=== PATIENT | female | born 1935 | race Caucasian/White ===

== ENCOUNTER 2016-11-06 12:20 | Emergency (ER) | payer OTHER ==
[~2016-11-06] VITALS: Ht 157.5 cm; Wt 98.0 kg
[~2016-11-06 12:20] MED LIST: ATEN-174 PO; BIOT1CAP8 PO; CALCTAB7 PO; CARB25TA12 PO; CHOL1000 PO; FURO40TA3 PO; LISI5TAB PO; MULT-188 PO; [UNRECOGNIZED DRUG - CODE] PO
[2016-11-06 12:25] VITALS: TEMP 36.7; O2SAT 99
[2016-11-06] MEDS ORDERED: DONE10TA12 PO (13:21)
[2016-11-06] MEDS ORDERED: RQP25 PO (13:21)
[2016-11-06 14:13] LABS: BASO % 0.6 %; BASO ABS # 0.03 K/uL (0-0.2); COMPLETE YES; HEMATOCRIT 39.1 % (37-47); IG% 0.2 %; LYMPH % 19.5 %; LYMPH ABS # 0.92 K/uL (1.2-3.4); MEAN CELL VOLUME 88.7 fL (80-100); MEAN CORPUSCULAR HEMOGLOBIN 30.2 pg (25-34); MEAN PLATELET VOLUME 10.4 fL (7.4-10.4); MONO % 10.6 %; NEUT % 66.1 %; PLATELET COUNT 164 K/uL (130-400); RED BLOOD COUNT 4.41 M/uL (4.2-5.4); WHITE BLOOD COUNT 4.73 K/uL (4.8-10.8)
[2016-11-06 14:22] LABS: PARTIAL THROMBOPLASTIN RATIO 1.1; PROTHROMBIN TIME (PATIENT) 10.6 SECONDS (9.0-12.0)
[2016-11-06 14:24] LABS: ALT/SGPT 13 U/L (12-78); BLOOD UREA NITROGEN 23 mg/dl (7-18); CALCIUM 9.5 mg/dl (8.5-10.1); CARBON DIOXIDE 26 mmol/L (21-32); CHLORIDE 110 mmol/L (98-107); CREATININE 0.92 mg/dl (0.60-1.20); GLUCOSE 102 mg/dl (70-99); MAGNESIUM 2.5 mg/dl (1.8-2.4); POTASSIUM 4.1 mmol/L (3.5-5.1); SODIUM 144 mmol/L (136-145)
--- NOTE | 2016-11-06 14:28 | DIAGNOSTIC IMAGING REPORT ---
SINGLE VIEW CHEST CLINICAL HISTORY: Weakness. Change in mental status. FINDINGS: An AP, portable, upright chest radiograph is compared to study dated 09/08/2016 and correlated with chest CT dated 09/09/2016. The examination is degraded by portable technique, large body habitus, and patient rotation. The heart is enlarged and there is atherosclerotic calcification of the thoracic aorta. The mitral annulus is densely calcified. The pulmonary vasculature is noncongested. Chronic interstitial thickening is similar to previous. There is minimal bibasilar atelectasis. There is no airspace consolidation, large pleural effusion, or pneumothorax. The skeletal structures are osteopenic. Degenerative change is noted in the thoracic spine and shoulders. IMPRESSION: Cardiomegaly with no acute cardiopulmonary abnormality. Electronically signed by: Jameel Martino M.D. 11/06/2016 2:26 PM Dictated Date/Time: 11/06/2016 2:25 PM
[2016-11-06 14:32] LABS: ALKALINE PHOSPHATASE 112 U/L (45-117); AST/SGOT 11 U/L (15-37); CKMB/CK RATIO 3.3 (0-3.0)
[2016-11-06 14:41] VITALS: Ht 157.5 cm; Wt 98.0 kg
--- NOTE | 2016-11-06 15:01 | DIAGNOSTIC IMAGING REPORT ---
CT SCAN OF THE BRAIN WITHOUT IV CONTRAST CLINICAL HISTORY: Change in mental status. COMPARISON STUDY: CT of the brain dated 11/03/2015. TECHNIQUE: Unenhanced axial CT scan of the brain is performed from the vertex to the skull base. CT DOSE: 687.98 mGy.cm FINDINGS: Brain parenchyma: There are age-related involutional changes noting mild subcortical and periventricular microangiopathic change. There is no hemorrhage, mass effect, or evidence of acute territorial ischemia by CT criteria. Dawn-white matter is preserved. No extra-axial fluid collection is seen. Ventricles, sulci, cisterns: Prominent secondary to involutional change. Intracranial vasculature: There is atherosclerotic calcification of the cavernous carotid and vertebral arteries. Calvarium: Unremarkable. Sinuses and mastoids: The visualized paranasal sinuses are clear. The mastoid air cells are well pneumatized. Orbits: The bony orbits are grossly intact. There are bilateral ocular lens implants. IMPRESSION: Senescent changes as above with no hemorrhage, mass effect, or evidence of acute territorial ischemia by CT criteria. Electronically signed by: Jameel Martino M.D. 11/06/2016 2:59 PM Dictated Date/Time: 11/06/2016 2:57 PM
[2016-11-06 15:36] LABS: URINE APPEARANCE CLEAR (CLEAR); URINE BILIRUBIN NEG (NEG); URINE COLOR YELLOW; URINE EPITHELIAL CELL AUTO 20-30 /lpf (0-5); URINE NITRITE NEG (NEG); URINE PH 6.5 (4.5-7.5); URINE SPECIFIC GRAVITY 1.006 (1.000-1.030); UROBILINOGEN NEG (NEG)
[2016-11-06 15:42] LABS: MANUAL MICROSCOPIC REQUIRED? NO; REVIEW REQ? NO
[2016-11-06] MEDS ORDERED: CEFTRIAXONE SOD INJ 1 GM ADDVIAL IV STA (16:00)
[2016-11-06] MEDS ORDERED: CEPH500C2 PO (16:03)
--- NOTE | 2016-11-06 16:20 | EMERGENCY ROOM VISIT NOTE ---
History Report prepared by Morales: Thelma Esquivel Under the Supervision of: Dr. Delano Loera D.O. First contact with patient: 13:26 Chief Complaint: WEAKNESS Stated Complaint: WEAKNESS Nursing Triage Summary: Pt arrived to ER via ALS from [facility] for further evaluation of ongoing weakness for the last 2 months per pt reports. Pt c/o feeling generally weak and unable to perform her normal ADL's d/t being tired. Pt was found to be bradycardic at Dr office and EMS was called. Pt has no current complaints of pain or SOB. Reports weakness is all over with no unilateral deficiency. L AC #20 inserted by EMS and [facility] checked for 101. History of Present Illness The patient is an 81 year old female arriving by ambulance who presents to the Emergency Room with complaints of intermittent episodes of generalized weakness over the past 2 months, which was exacerbated last evening. Per daughter, the patient has a history of Parkinson's disease, and about every 2 weeks, she experiences episodes of generalized weakness, making it difficult for her to preform her normal activities at home. As her symptoms were exacerbated last evening, her daughter took her to her doctor's office for further evaluation this morning, and though she is normally ambulatory, she was unable to get out of the car on her own, and she had to use a wheelchair to make it in to the office. Upon evaluation by her doctor, the patient was found to be bradycardic in the 40's, so the ambulance was called to bring her to the ED for further evaluation. Patient's daughter states that she did check the patient's medications this morning and she has appeared to have been taking them as prescribed. She states that the patient has not recently been complaining of headache, visual difficulties, fevers, chills, chest pain, shortness of breath, abdominal pain, nausea, vomiting, diarrhea or urinary symptoms. Daughter also denies noticing any unilateral weakness, facial droop, slurred speech, or other acute symptoms. Source of History: family Onset: last evening Position: other (generalized) Quality: other (weakness) Timing: other (exacerbation) Associated Symptoms: No SOB, No abdominal pain, No chest pain, No chills, No diarrhea, No fevers, No nausea, No urinary symptoms, No vomiting Review of Systems See HPI for pertinent positives & negatives. A total of 10 systems reviewed and were otherwise negative. Past Medical & Surgical Medical Problems: (1) Hyperlipidemia (2) Hyperosmolality and hypernatremia (3) Hypertension (4) Parkinsons Family History No pertinent family history Social History Smoking Status: Never Smoker Drug Use: none Marital Status: Housing Status: lives with significant other Occupation Status: retired Current/Historical Medications Scheduled Atenolol (Tenormin), 50 MG PO DAILY Biotin (Biotin), 1 TAB PO DAILY Calcium Carbonate-Vitamin D W/ (Caltrate 600 Plus), 1 TAB PO DAILY Carbidopa/Levodopa (Sinemet 25MG/100MG), 2 TABS PO QID Cephalexin Monohydrate (Keflex), 500 MG PO QID Cholecalciferol (Vitamin D3), 1 TAB PO DAILY Donepezil Hydrochloride (Aricept), 10 MG PO HS Lisinopril (Prinivil), 5 MG PO DAILY Multiple Vitamins W/ Minerals (Ocuvite), 1 TAB PO DAILY Ropinirole HCl (Ropinirole HCl), 1 TAB PO HS Selegiline HCl (Selegiline HCl), 5 MG PO BID Allergies Coded Allergies: Succinylcholine (Unverified Allergy, Severe, 11/06/16) Physical Exam Vital Signs Date Time Temp Pulse Resp B/P Pulse Ox O2 Delivery O2 Flow Rate FiO2 11/06/16 16:32 51 132/71 97 Room Air 11/06/16 14:42 Room Air 11/06/16 14:24 48 11/06/16 12:25 36.7 53 16 185/85 99 Room Air 11/06/16 12:25 99 Room Air Physical Exam GENERAL: Patient is awake, alert, and in no acute distress. Patient is resting comfortably and showing no signs of anxiety EYES: The conjunctivae are clear. The pupils are round and reactive. EARS, NOSE, MOUTH AND THROAT: The nose is without any evidence of any deformity. Mucous membranes are moist tongue is midline NECK: The neck is nontender and supple. RESPIRATORY: Normal respiratory effort is noted there is no evidence of wheezing rhonchi or rales CARDIOVASCULAR: Bradycardic rate, but regular rhythm. No definite murmur noted to auscultation. GASTROINTESTINAL: The abdomen is soft. Bowel sounds are present in all quadrants. Abdomen is nontender MUSCULOSKELETAL/EXTREMITIES: There is no evidence of gross deformity full range of motion is noted in the hips and shoulders SKIN: There is no obvious evidence of any rash. There are no petechiae, pallor or cyanosis noted. Pedal edema, bilaterally. NEUROLOGIC: Patient is awake alert and oriented x3, strength is symmetric but diminished bilaterally. No drift noted. Medical Decision & Procedures ER Provider Diagnostic Interpretation: CT results as stated below per my review and radiologist interpretation. X-ray results as stated below per interpretation by me and the radiologist. CT SCAN OF THE BRAIN WITHOUT IV CONTRAST CLINICAL HISTORY: Change in mental status. COMPARISON STUDY: CT of the brain dated 11/03/2015. TECHNIQUE: Unenhanced axial CT scan of the brain is performed from the vertex to the skull base. CT DOSE: 687.98 mGy.cm FINDINGS: Brain parenchyma: There are age-related involutional changes noting mild subcortical and periventricular microangiopathic change. There is no hemorrhage, mass effect, or evidence of acute territorial ischemia by CT criteria. Dawn-white matter is preserved. No extra-axial fluid collection is seen. Ventricles, sulci, cisterns: Prominent secondary to involutional change. Intracranial vasculature: There is atherosclerotic calcification of the cavernous carotid and vertebral arteries. Calvarium: Unremarkable. Sinuses and mastoids: The visualized paranasal sinuses are clear. The mastoid air cells are well pneumatized. Orbits: The bony orbits are grossly intact. There are bilateral ocular lens implants. IMPRESSION: Senescent changes as above with no hemorrhage, mass effect, or evidence of acute territorial ischemia by CT criteria. Electronically signed by: Jameel Martino M.D. 11/06/2016 2:59 PM Dictated Date/Time: 11/06/2016 2:57 PM SINGLE VIEW CHEST CLINICAL HISTORY: Weakness. Change in mental status. FINDINGS: An AP, portable, upright chest radiograph is compared to study dated 09/08/2016 and correlated with chest CT dated 09/09/2016. The examination is degraded by portable technique, large body habitus, and patient rotation. The heart is enlarged and there is atherosclerotic calcification of the thoracic aorta. The mitral annulus is densely calcified. The pulmonary vasculature is noncongested. Chronic interstitial thickening is similar to previous. There is minimal bibasilar atelectasis. There is no airspace consolidation, large pleural effusion, or pneumothorax. The skeletal structures are osteopenic. Degenerative change is noted in the thoracic spine and shoulders. IMPRESSION: Cardiomegaly with no acute cardiopulmonary abnormality. Electronically signed by: Jameel Martino M.D. 11/06/2016 2:26 PM Dictated Date/Time: 11/06/2016 2:25 PM Laboratory Results 11/06/16 12:52 Red Blood Count 4.41, Mean Corpuscular Volume 88.7, Mean Corpuscular Hemoglobin 30.2, Mean Corpuscular Hemoglobin Concent 34.0, Mean Platelet Volume 10.4, Neutrophils (%) (Auto) 66.1, Lymphocytes (%) (Auto) 19.5, Monocytes (%) (Auto) 10.6, Eosinophils (%) (Auto) 3.0, Basophils (%) (Auto) 0.6, Neutrophils # (Auto ) 3.13, Lymphocytes # (Auto) 0.92, Monocytes # (Auto) 0.50, Eosinophils # (Auto ) 0.14, Basophils # (Auto) 0.03 11/06/16 12:52 Test 11/06/16 12:52 11/06/16 14:30 11/06/16 15:19 White Blood Count 4.73 K/uL (4.8-10.8) Red Blood Count 4.41 M/uL (4.2-5.4) Hemoglobin 13.3 g/dL (12.0-16.0) Hematocrit 39.1 % (37-47) Mean Corpuscular Volume 88.7 fL (80-100) Mean Corpuscular Hemoglobin 30.2 pg (25-34) Mean Corpuscular Hemoglobin Concent 34.0 g/dl (32-36) Platelet Count 164 K/uL (130-400) Mean Platelet Volume 10.4 fL (7.4-10.4) Neutrophils (%) (Auto) 66.1 % Lymphocytes (%) (Auto) 19.5 % Monocytes (%) (Auto) 10.6 % Eosinophils (%) (Auto) 3.0 % Basophils (%) (Auto) 0.6 % Neutrophils # (Auto) 3.13 K/uL (1.4-6.5) Lymphocytes # (Auto) 0.92 K/uL (1.2-3.4) Monocytes # (Auto) 0.50 K/uL (0.11-0.59) Eosinophils # (Auto) 0.14 K/uL (0-0.5) Basophils # (Auto) 0.03 K/uL (0-0.2) RDW Standard Deviation 47.2 fL (36.4-46.3) RDW Coefficient of Variation 14.5 % (11.5-14.5) Immature Granulocyte % (Auto) 0.2 % Immature Granulocyte # (Auto) 0.01 K/uL (0.00-0.02) Prothrombin Time 10.6 SECONDS (9.0-12.0) Prothromb Time International Ratio 1.0 (0.9-1.1) Activated Partial Thromboplast Time 28.6 SECONDS (21.0-31.0) Partial Thromboplastin Ratio 1.1 Anion Gap 8.0 mmol/L (3-11) Est Creatinine Clear Calc Drug Dose 53.4 ml/min Estimated GFR () 68.2 Estimated GFR (Non- 58.8 BUN/Creatinine Ratio 25.0 (10-20) Calcium Level 9.5 mg/dl (8.5-10.1) Phosphorus Level 3.0 mg/dl (2.5-4.9) Magnesium Level 2.5 mg/dl (1.8-2.4) Total Bilirubin 1.1 mg/dl (0.2-1) Direct Bilirubin 0.2 mg/dl (0-0.2) Aspartate Amino Transf (AST/SGOT) 11 U/L (15-37) Alanine Aminotransferase (ALT/SGPT) 13 U/L (12-78) Alkaline Phosphatase 112 U/L (45-117) Total Creatine Kinase 45 U/L (26-192) Creatine Kinase MB 1.5 ng/ml (0.5-3.6) Creatine Kinase MB Ratio 3.3 (0-3.0) Troponin I < 0.015 ng/ml (0-0.045) Pro-B-Type Natriuretic Peptide 969 pg/ml (0-1800) Total Protein 6.7 gm/dl (6.4-8.2) Albumin 3.7 gm/dl (3.4-5.0) Lipase 269 U/L (73-393) Thyroid Stimulating Hormone (TSH) 1.470 uIu/ml (0.300-4.500) Free Thyroxine 1.12 ng/dl (0.80-1.60) Urine Color YELLOW Urine Appearance CLEAR (CLEAR) Urine pH 6.5 (4.5-7.5) Urine Specific [place] 1.006 (1.000-1.030) Urine Protein NEG (NEG) Urine Glucose (UA) NEG (NEG) Urine Ketones NEG (NEG) Urine Occult Blood NEG (NEG) Urine Nitrite NEG (NEG) Urine Bilirubin NEG (NEG) Urine Urobilinogen NEG (NEG) Urine Leukocyte Esterase MODERATE (NEG) Urine WBC (Auto) 5-10 /hpf (0-5) Urine RBC (Auto) 0-4 /hpf (0-4) Urine Hyaline Casts (Auto) 0 /lpf (0-5) Urine Epithelial Cells (Auto) 20-30 /lpf (0-5) Urine Bacteria (Auto) 4+ (NEG) Bedside Glucose 87 mg/dl (70-90) Laboratory results per my review. Medications Administered Medications (Trade) Dose Ordered Sig/Geronimo Route Start Time Stop Time Status Last Admin Dose Admin Ceftriaxone Sodium (Rocephin Inj) 1 gm NOW STAT IV 11/06/16 16:00 11/06/16 16:01 DC 11/06/16 16:32 1 GM ECG Indication: weakness Rate (beats per minute): 47 Rhythm: sinus bradycardia Findings: no ectopy, other (No acute ST segment abnormalities. T wave abnormalities in the inferior leads.) Change: no significant change (when compared to EKG from 09/08/16.) ED Course 1335: The patient was evaluated in room C12. A complete history and physical examination were performed. 1500: Upon reevaluation, the patient was doing well. The results of her CT are pending. 1600: Rocephin 1 gm IV was ordered. 1620: Upon reevaluation, the patient was doing well and appeared to be resting comfortably. I updated her and her family on the results of her radiology reports and lab tests. Discharge instructions were also discussed at this time. They verbalized their understanding and agreement with this treatment plan, and she is now ready for disposition. Medical Decision Prior records/ancillary studies reviewed and summarized above. Patient had a stress test in 2001 and an echo in 2008. Nursing notes reviewed. Additional history obtained from the patient's family. The patient's history was concerning for weakness. Differential diagnosis: Etiologies such as metabolic, infection, hypo/hyperglycemia, electrolyte abnormalities, cardiac sources, intracerebral event, toxicologic, neurologic, as well as others were entertained. The patient is an 81-year-old female who presented to the emergency department with family members for an evaluation of generalized weakness. The patient was seen at her primary care physician's office and sent to the emergency apartment for further evaluation. The patient was treated with IV fluids and IV antibiotics for presumed urinary tract infection. She was reevaluated multiple times. I discussed the patient's laboratory and radiographic studies with her. The patient's daughter stated that she was sent to the emergency department for the possibility pulmonary edema. However this was not found to be the case. The patient was encouraged to drink plenty clear liquids and call her primary care physician in the morning. She was also encouraged to continue all medications as prescribed. Is also encouraged to return to the emergency department immediately if symptoms change worsen or if the need arises. Impression Primary Impression: Weakness Additional Impression: UTI (urinary tract infection) Scribe Attestation The scribe's documentation has been prepared under my direction and personally reviewed by me in its entirety. I confirm that the note above accurately reflects all work, treatment, procedures, and medical decision making performed by me. Departure Information Dispostion Home / Self-Care Prescriptions Cephalexin Monohydrate (KEFLEX) 500 Mg Cap 500 MG PO QID, #28 CAP Prov: Delano Loera DO 11/06/16 Referrals Edwige Blair DO (PCP) Forms HOME CARE DOCUMENTATION FORM, IMPORTANT VISIT INFORMATION Patient Instructions My [facility] Additional Instructions Continue all medications as prescribed. Drink plenty clear liquids. Call your family doctor in the morning to schedule a follow-up appointment. Problem Qualifiers
[2016-11-06 18:03] VITALS: BP 142/76; PULSE 48; O2SAT 98
[2017-01-31] MEDS ORDERED: VANC5CAP PO (10:02)
[2017-01-31] MEDS ORDERED: QSTP PO (10:02)
[2017-04-05] MEDS ORDERED: BND25 PO (15:07)
== END 2016-11-06 18:03 | disposition home or self-care (01) ==
LOC: EDUNIT# 12:20 → EDBD 12:20 → C.EDC 12:35
DX: R53.1 Weakness (principal); N39.0 Urinary tract infection, site not specified; E78.5 Hyperlipidemia, unspecified; I10 Essential (primary) hypertension; G20 Parkinson's disease; Z79.899 Other long term (current) drug therapy; Z88.8 Allergy status to other drugs, medicaments and biological substances

== ENCOUNTER 2016-12-22 03:03 | Inpatient (IN) | payer OTHER ==
[~2016-12-22] VITALS: Ht 160 cm; Wt 94.9 kg
[2016-12-22] VITALS (8 sets, daily range): BP systolic 111–151; BP diastolic 67–84; PULSE 52–111; TEMP 36–37; O2SAT 92–99; Ht 160 cm; Wt 94.9 kg
[~2016-12-22 03:03] MED LIST changes: +CEPH500C2 PO; +DONE10TA12 PO; -FURO40TA3 PO; +RQP25 PO
[2016-12-22] MEDS ORDERED: NITROGLYCERIN 0.4 MG SL PER TAB CHARGE SL STA (03:30)
--- NOTE | 2016-12-22 03:32 | EMERGENCY ROOM VISIT NOTE ---
History Report prepared by Morales: Evgeny Ramirez Under the Supervision of: Dr. Chantelle Brand D.O. First contact with patient: 03:10 Chief Complaint: CHEST PAIN Stated Complaint: CHEST PAIN History of Present Illness The patient is an 81 year old female who presents to the Emergency Room with complaints of waxing & waning chest pain that started in the middle of the night. The pain was initially severe, and has since improved and is now worsening again. She was feeling good during the day. The patient's EKG in the ambulance en route to the ED showed atrial fibrillation. The patient denies any cardiac history. She was given Cardizem en route. The patient denies shortness of breath, nausea, vomiting, or swelling of her legs. The patient denies any history of diabetes. She does have a history of Parkinson's. The patient follows up with Dr. Pereyra. Source of History: patient Onset: last night Position: chest Timing: waxes/wanes Associated Symptoms: No SOB, No nausea, No vomiting Review of Systems See HPI for pertinent positives & negatives. A total of 10 systems reviewed and were otherwise negative. Past Medical & Surgical Medical Problems: (1) Hyperlipidemia (2) Hyperosmolality and hypernatremia (3) Hypertension (4) Parkinsons Family History No pertinent family history Social History Smoking Status: Never Smoker Drug Use: none Marital Status: Housing Status: lives with significant other Occupation Status: retired Current/Historical Medications Scheduled Artificial Tear Ointment (Eye Lubricant), 1 APPLN OPB HS Atenolol (Tenormin), 50 MG PO DAILY Biotin (Biotin), 5,000 MCG PO DAILY Calcium Carbonate-Vitamin D W/ (Caltrate 600 Plus), 1 TAB PO DAILY Carbidopa-Levodopa (Sinemet Cr 50-200 mg), 1 TAB PO HS Carbidopa/Levodopa (Sinemet 25MG/100MG), 2 TABS PO QID Cholecalciferol (Vitamin D3), 1 TAB PO DAILY Donepezil Hydrochloride (Donepezil Hcl), 5 MG PO DAILY Lisinopril (Prinivil), 5 MG PO DAILY Multiple Vitamins W/ Minerals (Ocuvite), 1 TAB PO DAILY Selegiline HCl (Selegiline HCl), 5 MG PO BID Scheduled PRN Furosemide (Lasix), 40 MG PO DAILY PRN for SWELLING Allergies Coded Allergies: Succinylcholine (Unverified Allergy, Severe, 12/22/16) Physical Exam Vital Signs Date Time Temp Pulse Resp B/P Pulse Ox O2 Delivery O2 Flow Rate FiO2 12/22/16 03:37 105 12/22/16 03:22 99 Room Air 12/22/16 03:22 99 Room Air 12/22/16 03:22 36.7 115 18 141/89 99 Room Air Physical Exam HEENT: Head - normocephalic and atraumatic Pupils are equal, round, and reactive to light. Extraocular eye muscles are intact, and sclera are anicteric. Nose - moist nasal mucosa without discharge. Mouth - moist buccal mucosa. Oropharynx is nonerythematous and there is no tonsillar exudate or edema noted. Neck: Supple; no JVD, nuchal rigidity, cervical lymphadenopathy, or auscultated bruits. Heart: Irregularly irregular rhythm with a tachycardic rate. There is a normal S1 and S2 with no murmurs, clicks, or gallops appreciated. Lungs: Diminished breath sounds at the bases with no wheezes, rales, or rhonchi. Abdomen: Soft, completely nontender, nondistended, with good bowel sounds. There are no palpable pulsatile masses or hepatosplenomegaly. There is no guarding, rigidity, or rebound noted. Extremities: No evidence of cyanosis, clubbing. There is 2+ edema. There are easily palpable peripheral pulses. Skin: warm and dry with good turgor and no rashes. Medical Decision & Procedures ER Provider Diagnostic Interpretation: X-ray results as stated below per interpretation by me. CHEST ONE VIEW PORTABLE: Borderline cardiomegaly, mild pulmonary vascular congestion, no pleural effusion. Laboratory Results 12/22/16 03:18 Red Blood Count 4.81, Mean Corpuscular Volume 88.1, Mean Corpuscular Hemoglobin 29.9, Mean Corpuscular Hemoglobin Concent 34.0, Mean Platelet Volume 11.0, Neutrophils (%) (Auto) 65.8, Lymphocytes (%) (Auto) 19.4, Monocytes (%) (Auto) 11.7, Eosinophils (%) (Auto) 2.5, Basophils (%) (Auto) 0.3, Neutrophils # (Auto ) 3.92, Lymphocytes # (Auto) 1.16, Monocytes # (Auto) 0.70, Eosinophils # (Auto ) 0.15, Basophils # (Auto) 0.02 12/22/16 03:18 Test 12/22/16 03:18 White Blood Count 5.97 K/uL (4.8-10.8) Red Blood Count 4.81 M/uL (4.2-5.4) Hemoglobin 14.4 g/dL (12.0-16.0) Hematocrit 42.4 % (37-47) Mean Corpuscular Volume 88.1 fL (80-100) Mean Corpuscular Hemoglobin 29.9 pg (25-34) Mean Corpuscular Hemoglobin Concent 34.0 g/dl (32-36) Platelet Count 140 K/uL (130-400) Mean Platelet Volume 11.0 fL (7.4-10.4) Neutrophils (%) (Auto) 65.8 % Lymphocytes (%) (Auto) 19.4 % Monocytes (%) (Auto) 11.7 % Eosinophils (%) (Auto) 2.5 % Basophils (%) (Auto) 0.3 % Neutrophils # (Auto) 3.92 K/uL (1.4-6.5) Lymphocytes # (Auto) 1.16 K/uL (1.2-3.4) Monocytes # (Auto) 0.70 K/uL (0.11-0.59) Eosinophils # (Auto) 0.15 K/uL (0-0.5) Basophils # (Auto) 0.02 K/uL (0-0.2) RDW Standard Deviation 47.0 fL (36.4-46.3) RDW Coefficient of Variation 14.6 % (11.5-14.5) Immature Granulocyte % (Auto) 0.3 % Immature Granulocyte # (Auto) 0.02 K/uL (0.00-0.02) Nucleated RBC Absolute Count (auto) 0.09 K/uL (0-0) Nucleated Red Blood Cells % 1.4 % Anion Gap 9.0 mmol/L (3-11) Est Creatinine Clear Calc Drug Dose 41.0 ml/min Estimated GFR () 49.4 Estimated GFR (Non- 42.7 BUN/Creatinine Ratio 24.2 (10-20) Calcium Level 9.7 mg/dl (8.5-10.1) Magnesium Level 2.0 mg/dl (1.8-2.4) Pro-B-Type Natriuretic Peptide 1130 pg/ml (0-1800) Thyroid Stimulating Hormone (TSH) 1.920 uIu/ml (0.300-4.500) Laboratory results per my review. Medications Administered Medications (Trade) Dose Ordered Sig/Geronimo Route Start Time Stop Time Status Last Admin Dose Admin Nitroglycerin (Nitrostat Tab) 0.4 mg Q5M STAT SL 12/22/16 03:30 12/22/16 03:31 DC 12/22/16 03:30 0.4 MG Fentanyl Citrate (Fentanyl Inj) 50 mcg NOW STAT IV 12/22/16 03:46 12/22/16 03:47 DC 12/22/16 03:52 50 MCG Diltiazem HCl (Cardizem Inj) 10 mg NOW STAT IV 12/22/16 04:24 12/22/16 04:25 DC 12/22/16 04:39 10 MG Procedure Medications administered include Nitroglycerin SL, Fentanyl IV, Cardizem IV. ECG Indication: chest pain Rate (beats per minute): 109 Rhythm: atrial fibrillation (RVR) Findings: ST depression (lateral, I, AvL) Change: Atrial fibrillation is new compared to 2016 ED Course 0325: Past medical records reviewed. The patient was evaluated in room B4b. A complete history and physical exam was performed. IV lock was established. Labs were drawn as above. A twelve-lead EKG was obtained. The patient was observed on the cardiac cath tech and pulse oximeter. 0330: The patient's chest pain began to increase again to a 5/10. Nitroglycerin 0.4 mg SL. 0346: The patient felt that her chest pain was worsening despite receiving the nitroglycerin and was given Fentanyl 50 mcg IV. 0424: Cardizem 10 mg IV. 0500: [facility] The patient will be evaluated. 0505: Updated the patient and her family. She verbalized agreement of the treatment plan. Medical Decision The patient is an 81 year old female who presents to the ED with chest pain. Differential diagnosis includes new onset atrial fibrillation, STEMI, cardiac ischemia, GERD, CHF. Laboratory interpretation: Normal white count, normal H&H, BUN 29, creatinine 1.2, TSH 1.9, cardiac enzymes negative, glucose 105. This is an 81-year-old female patient with Parkinson's disease who presents to the emergency department with a sudden onset of severe left-sided chest discomfort. EMS found that the patient had A. fib with RVR. She was treated with 10 mg of IV Cardizem which brought her rate from the 150s down to 90. Upon arrival here in the emergency department, the rate went back up to 120. Patient has some minor lateral EKG changes when her rate is elevated. Her chest discomfort has significantly diminished after receiving the IV fentanyl. The patient had received aspirin prior to arrival. [facility] and [facility] will evaluate for further management. Consults Time Called: 0450 Consulting Physician: Dr. Zamora, [facility]. Returned Call: [phone]: Spoke with Dr. Zamora, [facility]. The patient will be evaluated. Impression Primary Impression: Atrial fibrillation with RVR Critical Care I have personally spent greater than 30 minutes of critical care time in the direct management of this patient. This includes bedside care, interpretation of diagnostic studies, and testing, discussion with consultants, patient, and family members, and other required patient management activities. This 30 minutes is in excess of all separately billable procedures. Scribe Attestation The scribe's documentation has been prepared under my direction and personally reviewed by me in its entirety. I confirm that the note above accurately reflects all work, treatment, procedures, and medical decision making performed by me. Departure Information Dispostion Being Evaluated By Hospitalist Referrals Edwige Mason DO (PCP) Patient Instructions My [facility]
[2016-12-22 03:39] LABS: BASO % 0.3 %; BASO ABS # 0.02 K/uL (0-0.2); COMPLETE YES; EOS % 2.5 %; HEMATOCRIT 42.4 % (37-47); IG% 0.3 %; LYMPH % 19.4 %; LYMPH ABS # 1.16 K/uL (1.2-3.4); MEAN CELL VOLUME 88.1 fL (80-100); MEAN CORPUSCULAR HEMOGLOBIN 29.9 pg (25-34); MONO % 11.7 %; NEUT % 65.8 %; PLATELET COUNT 140 K/uL (130-400); RED BLOOD COUNT 4.81 M/uL (4.2-5.4); WHITE BLOOD COUNT 5.97 K/uL (4.8-10.8)
[2016-12-22] MEDS ORDERED: FENTANYL CITRATE INJ 50 MCG/1 ML 2 ML VIAL IV STA (03:46)
[2016-12-22 03:48] LABS: BLOOD UREA NITROGEN 29 mg/dl (7-18); BUN/CREATININE RATIO 24.2 (10-20); CALCIUM 9.7 mg/dl (8.5-10.1); CARBON DIOXIDE 27 mmol/L (21-32); CHLORIDE 104 mmol/L (98-107); GLUCOSE 105 mg/dl (70-99); POTASSIUM 4.2 mmol/L (3.5-5.1); SODIUM 140 mmol/L (136-145)
[2016-12-22] MEDS ORDERED: DILTIAZEM HCL 5 MG/ML 5 ML VIAL IV STA (04:24)
[2016-12-22] MEDS ORDERED: NITROGLYCERIN 0.4 MG SL PER TAB CHARGE SL PRN (05:00)
[2016-12-22] MEDS ORDERED: ONDANSETRON INJ 2 MG/ML 2 ML VIAL IV PRN (05:00)
[2016-12-22] MEDS ORDERED: ACETAMINOPHEN 325 MG TAB PO PRN (05:00)
[2016-12-22] MEDS ORDERED: ZOLPIDEM TARTRATE 5 MG TAB PO PRN (05:00)
[2016-12-22] MEDS ORDERED: BIOT1CAP3 PO (05:03)
[2016-12-22] MEDS ORDERED: FRS/40 PO (05:04)
[2016-12-22] MEDS ORDERED: DONE1TAB11 PO (05:04)
[2016-12-22] MEDS ORDERED: ARTIOIN6 OPB (05:06)
[2016-12-22] MEDS ORDERED: CARB1TAB59 PO (05:06)
--- NOTE | 2016-12-22 05:12 | History and Physical ---
History & Physical Date & Time of Service: Dec 22, 2016 at 05:11 Chief Complaint: Chest Pain Primary Care Physician: Edwige Mason DO History of Present Illness Source: patient, family, spouse The patient is an 81-year-old female who was awoken from sleep by chest pain tonight. The pain did improve briefly and then worsened again. She has not had this pain before, but she has over the previous few months had episodes of sudden onset of severe weakness to the point of almost falling. EKG in the ambulance en route to the hospital showed atrial fibrillation, which is new for her. She has a known history of Parkinson's, and Dr. Alan from neurology has been trying to adjust medications to help the weakness episodes. Family History No pertinent family history Social History Smoking Status: Never Smoker Smokeless Tobacco Use: No Alcohol Use: none Drug Use: none Marital Status: Housing status: lives with family Occupational Status: retired Multi-Drug Resistant Organisms History of MDRO: No Allergies Coded Allergies: Succinylcholine (Unverified Allergy, Severe, 12/22/16) Home Medications Scheduled Artificial Tear Ointment (Eye Lubricant), 1 APPLN OPB HS Atenolol (Tenormin), 50 MG PO DAILY Biotin (Biotin), 5,000 MCG PO DAILY Calcium Carbonate-Vitamin D W/ (Caltrate 600 Plus), 1 TAB PO DAILY Carbidopa-Levodopa (Sinemet Cr 50-200 mg), 1 TAB PO HS Carbidopa/Levodopa (Sinemet 25MG/100MG), 2 TABS PO QID Cholecalciferol (Vitamin D3), 1 TAB PO DAILY Donepezil Hydrochloride (Donepezil Hcl), 5 MG PO DAILY Lisinopril (Prinivil), 5 MG PO DAILY Multiple Vitamins W/ Minerals (Ocuvite), 1 TAB PO DAILY Selegiline HCl (Selegiline HCl), 5 MG PO BID Scheduled PRN Furosemide (Lasix), 40 MG PO DAILY PRN for SWELLING Review of Systems The patient denies cough, lower extremity swelling, vision change, hearing change, sore throat, fevers, chills, sweats, weight change, fatigue, nausea, vomiting, abdominal pain, pelvic pain, blood in urine or stool, dysuria, urinary frequency or urgency, lightheadedness, dizziness, headache, memory loss , rash, abnormal bruising or bleeding, imbalance, focal or generalized weakness , numbness or tingling in arms or legs, arthralgias or myalgias, back or neck pain, night sweats, or allergy symptoms. The review of systems is otherwise negative other than for that already noted above, and at least 10 systems have been reviewed. Physical Exam Vital Signs Date Time Temp Pulse Resp B/P Pulse Ox O2 Delivery O2 Flow Rate FiO2 12/22/16 03:37 105 12/22/16 03:22 99 Room Air 12/22/16 03:22 99 Room Air 12/22/16 03:22 36.7 115 18 141/89 99 Room Air The patient is awake, well-developed and adequately nourished, alert and oriented 3, normocephalic and atraumatic, lying in bed and in no acute distress. HEENT--PERRL, EOMI, mucous membranes and oropharynx dry. Neck--supple, no JVD or bruits, thyroid normal, trachea midline, no adenopathy. Heart--irregularly irregular, no murmurs, rubs or gallops. Lungs--clear bilaterally with good air movement, no respiratory distress, no accessory muscle use. Abdomen--normal bowel sounds and soft, nontender and nondistended, no hernias or masses, no organomegaly. Extremities--no cyanosis, clubbing. There is bilaterally trace pitting Edema. There are good distal pulses b/l. Dermatologic--normal skin turgor, normal color, warm and dry, no abnormal lymph nodes, no rash. Neurologic--cranial nerves II through XII grossly intact, motor and sensory examination normal. Rheumatologic--normal range of motion, nontender, muscles and joints for age. Psychiatric--normal affect. Diagnostics Laboratory Results Results Past 24 Hours Test 12/22/16 03:18 12/22/16 04:58 12/22/16 05:06 Range/Units White Blood Count 5.97 4.8-10.8 K/uL Red Blood Count 4.81 4.2-5.4 M/uL Hemoglobin 14.4 12.0-16.0 g/dL Hematocrit 42.4 37-47 % Mean Corpuscular Volume 88.1 80-100 fL Mean Corpuscular Hemoglobin 29.9 25-34 pg Mean Corpuscular Hemoglobin Concent 34.0 32-36 g/dl Platelet Count 140 130-400 K/uL Mean Platelet Volume 11.0 7.4-10.4 fL Neutrophils (%) (Auto) 65.8 % Lymphocytes (%) (Auto) 19.4 % Monocytes (%) (Auto) 11.7 % Eosinophils (%) (Auto) 2.5 % Basophils (%) (Auto) 0.3 % Neutrophils # (Auto) 3.92 1.4-6.5 K/uL Lymphocytes # (Auto) 1.16 1.2-3.4 K/uL Monocytes # (Auto) 0.70 0.11-0.59 K/uL Eosinophils # (Auto) 0.15 0-0.5 K/uL Basophils # (Auto) 0.02 0-0.2 K/uL RDW Standard Deviation 47.0 36.4-46.3 fL RDW Coefficient of Variation 14.6 11.5-14.5 % Immature Granulocyte % (Auto) 0.3 % Immature Granulocyte # (Auto) 0.02 0.00-0.02 K/uL Nucleated RBC Absolute Count (auto) 0.09 0-0 K/uL Nucleated Red Blood Cells % 1.4 % Sodium Level 140 136-145 mmol/L Potassium Level 4.2 3.5-5.1 mmol/L Chloride Level 104 98-107 mmol/L Carbon Dioxide Level 27 21-32 mmol/L Anion Gap 9.0 3-11 mmol/L Blood Urea Nitrogen 29 7-18 mg/dl Creatinine 1.20 0.60-1.20 mg/dl Est Creatinine Clear Calc Drug Dose 41.0 ml/min Estimated GFR () 49.4 Estimated GFR (Non- 42.7 BUN/Creatinine Ratio 24.2 10-20 Random Glucose 105 70-99 mg/dl Calcium Level 9.7 8.5-10.1 mg/dl Total Creatine Kinase 45 26-192 U/L Creatine Kinase MB 1.8 0.5-3.6 ng/ml Creatine Kinase MB Ratio 4.0 0-3.0 Troponin I < 0.015 0-0.045 ng/ml Pro-B-Type Natriuretic Peptide 1130 0-1800 pg/ml Thyroid Stimulating Hormone (TSH) 1.920 0.300-4.500 uIu/ml CXR normal EKG EKG shows atrial fibrillation at 109 bpm, with ST depressions in leads V4 through V6. Impression Assessment and Plan New-onset atrial fibrillation with RVR, with lateral EKG changes--the patient will be admitted to the telemetry unit, for serial cardiac enzymes, cardiac rhythm monitoring and a 2-D echocardiogram with Dopplers. Because of her multiple instances of sudden onsets of weakness over the past few months. There is a concern at the age fibrillation is not completely new tonight, and therefore she'll be started on heparin drip as well. We'll continue atenolol 50 mg by mouth daily and add aspirin 81 mg by mouth daily. We will hold lisinopril 5 mg by mouth daily. She was given Cardizem unknown dose IV en route in the ambulance. She'll be given digoxin 0.25 mg IV 1 in the emergency department. Parkinson's/restless legs syndrome--continue carbidopa/levodopa 25/100, 2 tabs by mouth 4 times a day, carbidopa/levodopa CR 50/200 by mouth at bedtime, and selegiline 5 mg by mouth twice a day. We'll consult Dr. Alan, her neurologist. Dementia--continue donepezil 5 mg by mouth at bedtime. Level of Care Telemetry Advanced Directives Existing Advance Directive: No Existing Living Will: No Existing Power of [employer] Worker: No Resuscitation Status FULL RESUSCITATION VTE Prophylaxis VTE Risk Assessment Done? Y/N: Yes Risk Level: Moderate Given or contraindicated: Unfractionated heparin SQ
[2016-12-22] MEDS ORDERED: HEPARIN 25000 UNIT/500 ML D5W ONE (05:13)
[2016-12-22] MEDS ORDERED: DIGOXIN IV 250 MCG in SYRINGE 9 ML IV STA (05:25)
[2016-12-22 05:50] LABS: CKMB/CK RATIO 6.1 (0-3.0)
[2016-12-22 05:56] LABS: PARTIAL THROMBOPLASTIN RATIO 1.1; PROTHROMBIN TIME (PATIENT) 10.3 SECONDS (9.0-12.0)
[2016-12-22] MEDS: SELEGILINE HCL 5 MG CAP PO SCH ×2 (05:57→21:33)
[2016-12-22] MEDS: CARBIDOPA/LEVODOPA 25/100MG TAB PO SCH ×4 (05:57→21:32)
[2016-12-22] MEDS ORDERED: NSS + 20MEQ KCL 1000ML 1,000 ML IV SCH (06:15)
--- NOTE | 2016-12-22 07:55 | DIAGNOSTIC IMAGING REPORT ---
SINGLE VIEW CHEST CLINICAL HISTORY: Atypical chest pain. FINDINGS: An AP, portable, upright chest radiograph is compared to study dated 11/06/2016 and correlated with chest CT dated 09/09/2016. The examination is degraded by portable technique, large body habitus, and patient rotation. The heart is enlarged and there is atherosclerotic calcification of the thoracic aorta. The mitral annulus is densely calcified. The pulmonary vasculature is noncongested. Chronic interstitial thickening is similar to previous. There is minimal bibasilar atelectasis. More focal airspace consolidation is suspected at the left lung base in the retrocardiac region. There is no large pleural effusion or pneumothorax. The skeletal structures are osteopenic. Degenerative change is noted in the thoracic spine and shoulders. IMPRESSION: 1. Cardiomegaly without radiographic evidence of congestive failure. 2. Patchy airspace consolidation is seen at the left lung base. Correlate clinically for evidence of pneumonia. Radiographic follow-up to resolution is recommended. Electronically signed by: Jameel Martino M.D. 12/22/2016 7:54 AM Dictated Date/Time: 12/22/2016 7:52 AM
[2016-12-22] MEDS ORDERED: METOPROLOL TARTRATE 25 MG TAB PO SCH (08:30)
[2016-12-22] MEDS: CHOLECALCIFEROL 1000 INTER.UNIT TAB PO SCH (08:55)
[2016-12-22] MEDS: CALCIUM 600MG + VIT D 400 IU TAB PO SCH (08:55)
[2016-12-22] MEDS: ASPIRIN 81 MG ECTAB PO SCH (08:55)
[2016-12-22] MEDS: CEROVITE ADV FORMULA TAB PO SCH (08:55)
[2016-12-22] MEDS: LISINOPRIL 5 MG TAB PO SCH (08:55)
[2016-12-22] MEDS ORDERED: NON-FORMULARY MEDICATION (Biotin 1 TAB) PO SCH (09:00)
--- NOTE | 2016-12-22 09:16 | Medical Student: [facility] ---
Consultation Date of Consultation: Dec 22, 2016. Requesting Physician: Aiden Villatoro MD Attending Physician: Niraj Gordon MD Reason for Consultation: Atrial fibrillation with rapid ventricular response History of Present Illness Ms. Banks is a pleasant 81 y/o female with a history of Parkinson's disease, hypertension, and hyperlipidemia who presented to the ED by ambulance late last night for 10/10 chest pain and associated palpitations that woke her from sleep. At that time, she denies experiencing any jaw or arm symptoms, but did report some shortness of breath. She denies nausea, vomiting, or diaphoresis. She has not had any cough or additional respiratory symptoms. She denies fever or chills. EKG performed in the ED showed atrial fibrillation with RVR, as well as some ST depression in the lateral leads and an old septal infarct. CXR performed in the ED showed a patchy LLL infiltrate and cardiomegaly, but no evidence of CHF. She was given diltiazem and digoxin in the ED and reports that this drastically improved her symptoms. This morning, she reports no chest pain , SOB, or palpitations. She reports feeling slightly fatigued, but is otherwise asymptomatic. Troponins have been negativex2 since admission. Past Medical/Surgical History Medical History: Parkinson disease, hypertension, hyperlipidemia Social History Smoking Status: Never Smoker History of Alcohol Use: No Drug Use: none Marital Status: Housing Status: lives with family Occupation Status: retired Review of Systems Constitutional: + fatigue, No chills, No fever, No sweats, No weakness Eyes: No problem reported, No worsening of vision ENT: No hearing loss, No nasal symptoms, No sore throat Respiratory: + shortness of breath (resolved), No cough, No sputum, No wheezing Cardiac: No PND, No chest pain, No edema, No orthopnea, No palpitations Breast: No problem reported Abdomen: No GI bleeding, No constipation, No diarrhea, No nausea, No pain, No vomiting Musculoskeletal: No calf pain, No problem reported Female : No problem reported Neurologic: + see HPI, No numbness/tingling, No paralysis, No weakness Psychiatric: No problem reported Heme: No abnormal bleeding/bruising Endo: No problem reported Skin: No new/changing skin lesions, No problem reported, No rash Allergies Coded Allergies: Succinylcholine (Unverified Allergy, Severe, 12/22/16) Medications Current Inpatient Medications Medications (Trade) Dose Ordered Sig/Geronimo Route Start Time Stop Time Status Last Admin Dose Admin Potassium Chloride/Sodium Chloride (Nss + 20meq KCl 1000ml) 1,000 ml @ 100 mls/hr Q10H IV 12/22/16 06:15 01/21/17 06:14 12/22/16 06:28 100 MLS/HR Acetaminophen (Tylenol Tab) 650 mg Q4H PRN PO 12/22/16 05:00 01/21/17 04:59 Zolpidem Tartrate (Ambien Tab) 5 mg HSZ PRN PO 12/22/16 05:00 01/21/17 04:59 Nitroglycerin (Nitrostat Tab) 0.4 mg UD PRN SL 12/22/16 05:00 01/21/17 04:59 Aspirin (Ecotrin Tab) 81 mg QAM PO 12/22/16 09:00 01/21/17 08:59 Calcium/Vitamin D (Caltrate Plus Tab) 1 tab DAILY PO 12/22/16 09:00 01/21/17 08:59 Carbidopa/Levodopa (Sinemet 25/ 100MG Tab) 2 tab QID PO 12/22/16 09:00 01/21/17 08:59 12/22/16 05:57 2 TAB Cholecalciferol (Vitamin D Tab) 1,000 inter.unit DAILY PO 12/22/16 09:00 01/21/17 08:59 Donepezil HCl (Aricept Tab) 10 mg HS PO 12/22/16 21:00 01/21/17 20:59 Lisinopril (Zestril Tab) 5 mg DAILY PO 12/22/16 09:00 01/21/17 08:59 Multivitamins/ Minerals (Multivitamin W/ Minerals Tab) 1 tab DAILY PO 12/22/16 09:00 01/21/17 08:59 Ropinirole HCl (Requip Tab) 0.25 mg HS PO 12/22/16 21:00 01/21/17 20:59 Selegiline HCl (Eldepryl Cap) 5 mg BID PO 12/22/16 09:00 01/21/17 08:59 12/22/16 05:57 5 MG Ondansetron HCl (Zofran Inj) 4 mg Q6H PRN IV 12/22/16 05:00 01/21/17 04:59 Carbidopa/ Levodopa 1 tab 1 tab HS PO 12/22/16 21:00 01/21/17 20:59 Heparin Sodium/ Dextrose (Heparin 25,000 Unit/500ml D5W) 500 ml @ 25 mls/hr Q20H PRN IV 12/22/16 06:00 01/21/17 05:59 Metoprolol Tartrate (Lopressor Tab) 25 mg Q6H PO 12/22/16 08:30 01/21/17 08:29 Physical Exam Date Time Temp Pulse Resp B/P Pulse Ox O2 Delivery O2 Flow Rate FiO2 12/22/16 06:43 36.3 111 128/84 12/22/16 06:42 Room Air 12/22/16 06:10 118 16 122/78 99 12/22/16 05:46 123 12/22/16 05:12 123 16 103/71 98 Room Air 12/22/16 03:37 105 12/22/16 03:22 99 Room Air 12/22/16 03:22 99 Room Air 12/22/16 03:22 36.7 115 18 141/89 99 Room Air General Appearance: WD/WN, no apparent distress Eyes: bilateral eyes EOMI, bilateral eyes PERRL, bilateral eyes normal inspection ENT: hearing grossly normal Neck: supple, no adenopathy, no JVD, no carotid bruits, trachea midline Respiratory: chest non-tender, lungs clear, normal breath sounds, no respiratory distress, no accessory muscle use Cardiovascular: regular rate, rhythm, no edema, no gallop, no JVD, no murmur Abdomen: normal bowel sounds, non tender, soft, no organomegaly, no pulsatile mass Musculoskeletal: normal Neurologic/Psychiatric: alert, normal mood/affect, oriented x 3 Skin: normal color, warm/dry, no rash Laboratory Results Last 24 Hours Test 12/22/16 03:18 12/22/16 05:15 12/22/16 05:36 White Blood Count 5.97 K/uL Red Blood Count 4.81 M/uL Hemoglobin 14.4 g/dL Hematocrit 42.4 % Mean Corpuscular Volume 88.1 fL Mean Corpuscular Hemoglobin 29.9 pg Mean Corpuscular Hemoglobin Concent 34.0 g/dl Platelet Count 140 K/uL Mean Platelet Volume 11.0 fL Neutrophils (%) (Auto) 65.8 % Lymphocytes (%) (Auto) 19.4 % Monocytes (%) (Auto) 11.7 % Eosinophils (%) (Auto) 2.5 % Basophils (%) (Auto) 0.3 % Neutrophils # (Auto) 3.92 K/uL Lymphocytes # (Auto) 1.16 K/uL Monocytes # (Auto) 0.70 K/uL Eosinophils # (Auto) 0.15 K/uL Basophils # (Auto) 0.02 K/uL RDW Standard Deviation 47.0 fL RDW Coefficient of Variation 14.6 % Immature Granulocyte % (Auto) 0.3 % Immature Granulocyte # (Auto) 0.02 K/uL Nucleated RBC Absolute Count (auto) 0.09 K/uL Nucleated Red Blood Cells % 1.4 % Sodium Level 140 mmol/L Potassium Level 4.2 mmol/L Chloride Level 104 mmol/L Carbon Dioxide Level 27 mmol/L Anion Gap 9.0 mmol/L Blood Urea Nitrogen 29 mg/dl Creatinine 1.20 mg/dl Est Creatinine Clear Calc Drug Dose 41.0 ml/min Estimated GFR () 49.4 Estimated GFR (Non- 42.7 BUN/Creatinine Ratio 24.2 Random Glucose 105 mg/dl Calcium Level 9.7 mg/dl Magnesium Level 2.0 mg/dl Total Creatine Kinase 45 U/L 33 U/L Creatine Kinase MB 1.8 ng/ml 2.0 ng/ml Creatine Kinase MB Ratio 4.0 6.1 Troponin I < 0.015 ng/ml 0.030 ng/ml Pro-B-Type Natriuretic Peptide 1130 pg/ml Thyroid Stimulating Hormone (TSH) 1.920 uIu/ml Prothrombin Time 10.3 SECONDS Prothromb Time International Ratio 1.0 Activated Partial Thromboplast Time 29.2 SECONDS Partial Thromboplastin Ratio 1.1 Assessment & Plan ASSESSMENT: Ms. Banks is an 81 y/o female who presented to the ED last night with new-onset atrial fibrillation with RVR and 10/10 chest pain. She has since converted to NSR and is no longer having any chest pain. Troponins have been negative x2, but with a slight upward trend. EKG on admission showed lateral ST depression and T wave changes, which is a new problem for her. She is already taking atenolol 50mg qd at home, and was placed on aspirin and IV heparin in the hospital.Given the new ST depression and her chest pain on admission, which is not typical for atrial fibrillation, further cardiac workup is indicated. PLAN: 1. Atrial fibrillation with RVR -Continue monitoring on telemetry -Continue atenolol 50mg qd -Continue aspirin 81mg qd -Consider bridging to warfarin or beginning novel oral anticoagulant 2. Chest pain with associated ST depression -Serial EKG's -Continue to trend troponins -Consider stress test as outpatient
--- NOTE | 2016-12-22 13:04 | Hospitalist Progress Note ---
Hospitalist Progress Note Date of Service Dec 22, 2016. (Briana Narayan PA-C) Subjective Pt evaluation today including: conversation w/ patient, conversation w/ family , physical exam, chart review, lab review, review of inpatient medication list Patient denies any further chest pain. No heart palpitations or dizziness. Denies any shortness of breath. (Briana Narayan PA-C) Objective Vital Signs Date Time Temp Pulse Resp B/P Pulse Ox O2 Delivery O2 Flow Rate FiO2 12/22/16 12:13 36.0 52 16 111/70 97 Room Air 12/22/16 08:00 99 Room Air 12/22/16 08:00 55 12/22/16 06:43 36.3 111 128/84 12/22/16 06:42 Room Air 12/22/16 06:10 118 16 122/78 99 12/22/16 05:46 123 12/22/16 05:12 123 16 103/71 98 Room Air 12/22/16 03:37 105 12/22/16 03:22 99 Room Air 12/22/16 03:22 99 Room Air 12/22/16 03:22 36.7 115 18 141/89 99 Room Air (Briana Narayan PA-C) Physical Exam General Appearance: no apparent distress Eyes: EOMI Neck: no JVD Respiratory/Chest: lungs clear Cardiovascular: regular rate, rhythm Abdomen: normal bowel sounds, non tender, soft Extremities: + pertinent finding (trace pitting edema in the lower extreme is bilaterally.) Neurologic/Psychiatric: no motor/sensory deficits, alert Skin: warm/dry (Briana Narayan PA-C) Laboratory Results Last 24 Hours Test 12/22/16 03:18 12/22/16 05:15 12/22/16 05:36 12/22/16 12:35 White Blood Count 5.97 K/uL Red Blood Count 4.81 M/uL Hemoglobin 14.4 g/dL Hematocrit 42.4 % Mean Corpuscular Volume 88.1 fL Mean Corpuscular Hemoglobin 29.9 pg Mean Corpuscular Hemoglobin Concent 34.0 g/dl Platelet Count 140 K/uL Mean Platelet Volume 11.0 fL Neutrophils (%) (Auto) 65.8 % Lymphocytes (%) (Auto) 19.4 % Monocytes (%) (Auto) 11.7 % Eosinophils (%) (Auto) 2.5 % Basophils (%) (Auto) 0.3 % Neutrophils # (Auto) 3.92 K/uL Lymphocytes # (Auto) 1.16 K/uL Monocytes # (Auto) 0.70 K/uL Eosinophils # (Auto) 0.15 K/uL Basophils # (Auto) 0.02 K/uL RDW Standard Deviation 47.0 fL RDW Coefficient of Variation 14.6 % Immature Granulocyte % (Auto) 0.3 % Immature Granulocyte # (Auto) 0.02 K/uL Nucleated RBC Absolute Count (auto) 0.09 K/uL Nucleated Red Blood Cells % 1.4 % Sodium Level 140 mmol/L Potassium Level 4.2 mmol/L Chloride Level 104 mmol/L Carbon Dioxide Level 27 mmol/L Anion Gap 9.0 mmol/L Blood Urea Nitrogen 29 mg/dl Creatinine 1.20 mg/dl Est Creatinine Clear Calc Drug Dose 41.0 ml/min Estimated GFR () 49.4 Estimated GFR (Non- 42.7 BUN/Creatinine Ratio 24.2 Random Glucose 105 mg/dl Calcium Level 9.7 mg/dl Magnesium Level 2.0 mg/dl Total Creatine Kinase 45 U/L 33 U/L Creatine Kinase MB 1.8 ng/ml 2.0 ng/ml Creatine Kinase MB Ratio 4.0 6.1 Troponin I < 0.015 ng/ml 0.030 ng/ml Pro-B-Type Natriuretic Peptide 1130 pg/ml Thyroid Stimulating Hormone (TSH) 1.920 uIu/ml Prothrombin Time 10.3 SECONDS Prothromb Time International Ratio 1.0 Activated Partial Thromboplast Time 29.2 SECONDS Partial Thromboplastin Ratio 1.1 (Briana Narayan, PA-C) Assessment and Plan 81-year-old female presented to the emergency department this morning with complaints of chest pain. New diagnosis of A. fib with RVR A. fib with RVR-spontaneously converted this morning around 6 AM -Follow-up echo -Keep heparin drip until echo is reviewed -Chads score of 2-we'll discuss long-term anticoagulation with pt/family/Dr. Beckett. She is a fall risk -Change atenolol to metoprolol tartrate 25 mg BID HTN -Continue lisinopril 5 mg daily Parkinson's disease -Continue current doses of Sinemet CR 50/200 HS, Sinemet 25/100 2 tabs QID, Selegiline 5 mg BID -PT/OT DVT prophylaxis -Heparin gtt -TEDS, SCDs CODE STATUS -LEVEL I FULL CODE (Briana Narayan PA-C) Attending Attestation: Pt seen/examined, chart reviewed, care plan d/w MONIKA Narayan. I agree w/ the lopez components of her documentation. Pt converted from a. fib to NSR this am. Main concern is that of her "having another spell." Apparently she was on the commode voiding. She got up from the toilet and "felt like I was having a spell." daughter states she was sweaty and flushed. she quickly got her from the bathroom to the bed and laid her in the bed. tele during the "spell" showed NSR. her last "spell" was about 4 weeks ago. spells occur sometimes with sitting but often after standing up. denies chest pain VSS, afebrile gen - nad, masked facies heart - RRR, s1, s2 lungs - CTA b/l abd - soft ext - trace edema echo - preserved EF, grade 2 diastolic dysfunction A/P: 1. a. fib - resolved, now in NSR. appreciate cardiology consult. 2. myocardial demand ischemia / + troponin - likely 2nd to #1 3. recent chest pain - cannot fully exclude ischemic in nature, especially with #2. Agree w/ outpatient stress. 4. "spells" at home - described as near-syncopal --- autonomic insufficiency due to parkinson's?? although orthostatics are negative.... likely coumadin daily for anticoagulation d/c heparin claudia kaur nearly 50 dollars/month... consider outpatient event monitor to see if "spells" are arrhythmogenic although today's episode clearly was NOT related to PAF outpatient stress as well PT eval prior to d/c daughter updated Lay BECKETT MD (Niraj Beckett MD)
--- NOTE | 2016-12-22 13:06 | ECHOCARDIOGRAM REPORT ---
*NOTICE TO RECEIVING REPUBLICAN AGENCY This information is strictly Confidential and protected under [place] law. [place] law prohibits you from making any further disclosure of this information unless further disclosure is expressly permitted by the written consent of the person to whom it pertains or is authorized by law. A general authorization for the release of medical or other information is not sufficient for this purpose. Hospital accepts no responsibility if the information is made available to any other person, INCLUDING THE PATIENT. Interpretation Summary * Name: KEISHA CARDENAS Study Date: 12/22/2016 06:47 AM BP: 122/78 mmHg * Patient Location: C.2T\S\S242\S\1 HR: 118 * : 1935 (M/d/yyyy) Gender: Female Height: 63 in * Age: 81 yrs Ethnicity: [place] Weight: 209 lb * Ordering Physician: Aiden Zamora * Referring Physician: Self, Referred * Performed By: Sharon Campos RCS * * Reason For Study: A-FIB * BSA: 2.0 m2 * -- Conclusions -- * The left ventricle is grossly normal size. * Ejection Fraction = 65-70%. * Left ventricular systolic function is normal. * The left ventricular wall motion is normal. * There is moderate concentric left ventricular hypertrophy. * Diastolic dysfunction, Grade II (pseudonormalization pattern). * There is severe mitral annular calcification. * At least mild to moderate mitral regurgitation. Mitral annular calcification precludes definitive assessment. * No significant mitral valve stenosis. * There is mild tricuspid regurgitation. * Right ventricular systolic pressure is elevated at 30-40mmHg. Procedure Details * A complete two-dimensional transthoracic echocardiogram was performed (2D, M-mode, Doppler and color flow Doppler). Left Ventricle * The left ventricle is grossly normal size. * There is moderate concentric left ventricular hypertrophy. * Ejection Fraction = 65-70%. * Left ventricular systolic function is normal. * The left ventricular wall motion is normal. Right Ventricle * The right ventricle is normal in size and function. Atria * The left atrium is severely dilated. * Right atrial size is normal. Mitral Valve * There is severe mitral annular calcification. * No significant mitral valve stenosis. * At least mild to moderate mitral regurgitation. Mitral annular calcification precludes definitive assessment. Tricuspid Valve * The tricuspid valve is normal in structure and function. * There is mild tricuspid regurgitation. * Right ventricular systolic pressure is elevated at 30-40mmHg. Aortic Valve * Aortic valve sclerosis moderate, without significant aortic valvular stenosis. * There is no significant aortic regurgitation. Pulmonic Valve * The pulmonary valve is inadequately visualized, but the Doppler data is adequate for interpretation. * There is no significant pulmonary regurgitation. Great Vessels * The aortic root is normal size. * No obvious dissection could be visualized. * The pulmonary artery is not well visualized, but is probably normal size. Pericardium/Pleural * There is no pericardial effusion. Great Vessels * Normal inferior vena cava diameter and respiratory variation suggests normal central venous pressure. Left Ventricular Diastolic Function * Diastolic dysfunction, Grade II (pseudonormalization pattern). MMode 2D Measurements and Calculations IVSd 0.92 cm IVSs 1.3 cm LVIDd 4.5 cm LVIDs 2.7 cm LVPWd 1.0 cm LVPWs 1.2 cm IVS/LVPW 0.91 FS 40.4 % EDV(Teich) 92.5 ml ESV(Teich) 26.6 ml EF(Teich) 71.2 % EDV(cubed) 91.2 ml ESV(cubed) 19.3 ml EF(cubed) 78.8 % % IVS thick 35.6 % % LVPW thick 18.1 % LV mass(C)d 147.3 grams LV mass(C)dI 74.8 grams/m\S\2 LV mass(C)s 97.4 grams LV mass(C)sI 49.4 grams/m\S\2 CO(Teich) 3.8 l/min CI(Teich) 1.9 l/min/m\S\2 SV(Teich) 65.9 ml SI(Teich) 33.5 ml/m\S\2 CO(cubed) 4.2 l/min CI(cubed) 2.1 l/min/m\S\2 SV(cubed) 71.9 ml SI(cubed) 36.5 ml/m\S\2 Ao root diam 3.2 cm Ao root area 8.0 cm\S\2 ACS 1.6 cm LA dimension 3.6 cm LA/Ao 1.1 LVAd ap4 22.3 cm\S\2 LVLd ap4 7.2 cm EDV(MOD-sp4) 56.0 ml LVAs ap4 12.1 cm\S\2 LVLs ap4 6.3 cm ESV(MOD-sp4) 20.0 ml EF(MOD-sp4) 64.3 % LVAd ap2 23.7 cm\S\2 LVLd ap2 7.7 cm EDV(MOD-sp2) 60.0 ml LVAs ap2 10.8 cm\S\2 LVLs ap2 6.1 cm ESV(MOD-sp2) 16.0 ml EF(MOD-sp2) 73.3 % CO(MOD-sp4) 2.1 l/min CI(MOD-sp4) 1.1 l/min/m\S\2 SV(MOD-sp4) 36.0 ml SI(MOD-sp4) 18.3 ml/m\S\2 CO(MOD-sp2) 2.6 l/min CI(MOD-sp2) 1.3 l/min/m\S\2 SV(MOD-sp2) 44.0 ml SI(MOD-sp2) 22.3 ml/m\S\2 Doppler Measurements and Calculations MV E max denny 98.2 cm/sec MV A max denny 109.6 cm/sec MV E/A 0.90 MV P1/2t max denny 96.0 cm/sec MV P1/2t 88.1 msec MVA(P1/2t) 2.5 cm\S\2 MV dec slope 319.3 cm/sec\S\2 MV dec time 0.21 sec Ao V2 max 158.1 cm/sec Ao max PG 10.0 mmHg Ao max PG (full) 5.1 mmHg LV V1 max PG 4.8 mmHg LV V1 max 110.1 cm/sec TR max denny 273.4 cm/sec
[2016-12-22 13:12] LABS: PARTIAL THROMBOPLASTIN RATIO 2.6
[2016-12-22 13:16] LABS: CKMB/CK RATIO 7.3 (0-3.0)
[2016-12-22] MEDS: CARBIDOPA/LEVODOPA 50/200MG EXT REL TAB PO SCH (21:32)
[2016-12-22] MEDS: ROPINIROLE HCL 0.25 MG TAB PO SCH (21:32)
[2016-12-22] MEDS: METOPROLOL TARTRATE 25 MG TAB PO SCH (21:32)
[2016-12-22] MEDS: DONEPEZIL HCL 10 MG TAB PO SCH (21:32)
[2016-12-22 21:58] LABS: CKMB/CK RATIO 7.6 (0-3.0)
--- NOTE | 2016-12-22 23:23 | CARDIOLOGY CONSULTATION ---
DATE OF CONSULTATION: 12/22/2016 TIME OF CONSULTATION: 1600 CONSULTATION REQUESTED BY: Dr. Beckett. REASON FOR CONSULTATION: Atrial fibrillation. 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 HISTORY OF PRESENT ILLNESS: Ms. Banks is a very pleasant 81-year-old woman with a history of Parkinson's and no prior cardiac history, who presented to the Emergency Department overnight with acute onset of chest pain. The patient states that she was awoken from sleep with near 10/10 chest pain. The pain persisted and she presented to the Emergency Department. She endorsed some associated shortness of breath. No nausea, vomiting or diaphoresis. Upon reaching the Emergency Department, the patient was noted to be in atrial fibrillation with rapid ventricular response with initial heart rate up into the 110s and initial EKG showing atrial fibrillation with heart rates at 109. She was treated with nitroglycerin, fentanyl, 10 mg of diltiazem as well as digoxin, and converted to sinus rhythm in the Emergency Department. Since that time, she has remained in normal sinus rhythm. She has had no recurrent palpitations or chest pain. The patient denies any prior history of similar chest pain. She has had intermittent episodes of acute onset of generalized fatigue. These episodes seem to occur before she takes her Parkinson's medications and are relieved after taking them. She has presented previously to the Emergency Department and her primary care doctors for these episodes and was never noted to be in atrial fibrillation prior to this. At the time of interview, the patient states she is feeling well and back at her baseline state of health. PAST MEDICAL HISTORY: 1. Parkinson's disease. 2. Hypertension. 3. Hyperlipidemia. 4. Recently diagnosed atrial fibrillation. FAMILY HISTORY: No pertinent family history. SOCIAL HISTORY: She is a lifetime nonsmoker. Denies any alcohol or illicit drugs. She is and lives with her . She is retired. HOME MEDICATIONS: Include atenolol 50, artificial tears, biotin, calcium carbonate, vitamin D, Sinemet, vitamin D3, donepezil, lisinopril 5 mg, multivitamins and selegiline. She does take p.r.n. Lasix for lower extremity swelling. ALLERGIES: SUCCINYLCHOLINE. REVIEW OF SYSTEMS: A 10-point review of systems completed and otherwise negative unless listed in HPI. PHYSICAL EXAMINATION: VITAL SIGNS: Temperature 36.9, pulse 58, blood pressure 121/67, satting 92% on room air. GENERAL: The patient appears comfortable, in no acute distress. HEENT: Sclerae are anicteric. Oropharynx is clear. Mucous membranes are moist. NECK: Supple with no lymphadenopathy. LUNGS: Clear to auscultation bilaterally. CARDIAC: She has a regular rate and rhythm with no appreciable murmurs, rubs or gallops. ABDOMEN: Soft, nontender, nondistended, with positive bowel sounds. EXTREMITIES: Show no significant edema. She has intact distal pulses. SKIN: Shows no rashes or lesions. NEUROLOGIC: The patient had slow movements with minimal resting upper extremity tremor. No other focal cranial nerve defects. DATA: EKG showed atrial fibrillation with RVR with ventricular rate of 109. There was questionable old septal infarct and questionable lateral ST depression. LABORATORY STUDIES: WBC 6.0, hemoglobin 14.4, platelets of 140. INR was 1.0 on admission. Most recent PTT was 68.5. Sodium 140, potassium 4.2, BUN 29, creatinine of 1.2. Initial troponin was 0.015, then 0.03, then 0.138, then 0.115. ProBNP was minimally elevated at 1130. TSH was within normal limits. IMAGING: Chest x-ray showed cardiomegaly without radiographic evidence of congestive heart failure. Echo today showed normal LV function with an EF of 65-70%. There was moderate LVH, grade 2 diastolic dysfunction, moderate to severe mitral annular calcification. There was mild mitral regurgitation, no significant mitral stenosis, and severely dilated left atrium. Also mild pulmonary hypertension. IMPRESSION AND PLAN: 1. Atrial fibrillation with rapid ventricular response. 2. Mildly elevated troponin and presenting chest pain. 3. Hypertension. 4. Hyperlipidemia. 5. Parkinson's disease. The patient was admitted with acute onset of chest pain in the setting of atrial fibrillation with RVR. She had resolution of symptoms with conversion to normal sinus rhythm. At this point, going forward, I agree with continued rate control strategy and agree with conversion to metoprolol 25 mg b.i.d. [facility], I feel the patient warrants anticoagulation, and after discussing options with the patient and her daughter, I feel that Coumadin likely would be best choice. On discharge, I do not feel the patient would necessarily need bridging and could be discharged on Coumadin alone with INR followup. In regard to the patient's chest pain and mildly elevated troponin, suspect this is likely demand in this setting of the patient's Afib with RVR. However, with the patient's mildly elevated troponin, I do feel that further risk stratification is warranted. Would plan to obtain a nuclear regadenoson stress test as an outpatient. Will avoid dobutamine stress test with recent Afib and the patient unable to exercise. The patient can follow up with cardiology clinic within the next 1-2 weeks for this to be set up. Otherwise, LV function is preserved, no evidence of heart failure on exam, and feel the patient is safe for discharge with other medical issues resolved. Thank you for allowing us to participate in the care of this patient. Please contact with any questions. OSITO
[2016-12-23] VITALS (9 sets, daily range): BP systolic 109–154; BP diastolic 63–80; PULSE 58–80; TEMP 36.6–37; O2SAT 92–99
[2016-12-23] MEDS: HEPARIN 25,000 UNIT/500ML D5W 500 ML IV PRN ×2 (02:33→08:15)
[2016-12-23 06:37] LABS: BASO % 0.2 %; BASO ABS # 0.01 K/uL (0-0.2); COMPLETE YES; EOS % 1.3 %; HEMATOCRIT 37.6 % (37-47); IG% 0.2 %; LYMPH % 16.9 %; LYMPH ABS # 0.78 K/uL (1.2-3.4); MEAN CELL VOLUME 90.2 fL (80-100); MEAN CORPUSCULAR HEMOGLOBIN 29.5 pg (25-34); MEAN CORPUSCULAR HGB CONC 32.7 g/dl (32-36); MONO % 8.7 %; NEUT % 72.7 %; PLATELET COUNT 124 K/uL (130-400); RED BLOOD COUNT 4.17 M/uL (4.2-5.4); WHITE BLOOD COUNT 4.61 K/uL (4.8-10.8)
[2016-12-23 06:57] LABS: PARTIAL THROMBOPLASTIN RATIO 4.3
[2016-12-23 07:16] LABS: BUN/CREATININE RATIO 22.4 (10-20); CALCIUM 8.6 mg/dl (8.5-10.1); MAGNESIUM 1.9 mg/dl (1.8-2.4)
[2016-12-23] MEDS: CALCIUM 600MG + VIT D 400 IU TAB PO SCH (09:06)
[2016-12-23] MEDS: SELEGILINE HCL 5 MG CAP PO SCH ×2 (09:07→20:49)
[2016-12-23] MEDS: CEROVITE ADV FORMULA TAB PO SCH (09:07)
[2016-12-23] MEDS: LISINOPRIL 5 MG TAB PO SCH (09:07)
[2016-12-23] MEDS: ASPIRIN 81 MG ECTAB PO SCH (09:07)
[2016-12-23] MEDS: CARBIDOPA/LEVODOPA 25/100MG TAB PO SCH ×4 (09:07→20:48)
[2016-12-23] MEDS: METOPROLOL TARTRATE 25 MG TAB PO SCH ×2 (09:07→20:50)
[2016-12-23] MEDS: CHOLECALCIFEROL 1000 INTER.UNIT TAB PO SCH (09:07)
--- NOTE | 2016-12-23 12:02 | Hospitalist Progress Note ---
Hospitalist Progress Note Date of Service Dec 23, 2016. (Briana Narayan PA-C) Subjective Pt evaluation today including: conversation w/ patient, conversation w/ family , physical exam, chart review, lab review, review of studies, review of inpatient medication list Patient denies any chest pain, palpitations, dizziness or shortness of breath this morning. She did have one of her "spells" of weakness while she was eating. She needed to lay back and rest. She is feeling very tired today. Additional Comments: 6 system review negative. Please see pertinent positives in the history of present illness section. (Briana Narayan PA-C) Objective Vital Signs Date Time Temp Pulse Resp B/P Pulse Ox O2 Delivery O2 Flow Rate FiO2 12/23/16 11:44 36.6 66 18 109/63 97 12/23/16 08:38 36.8 60 18 119/79 99 12/23/16 08:00 99 Room Air 12/23/16 04:37 37.0 58 20 130/68 97 Room Air 12/23/16 04:00 Room Air 12/23/16 00:01 Room Air 12/22/16 23:42 37.0 55 20 130/80 96 Room Air 12/22/16 20:00 Room Air 12/22/16 19:22 36.4 59 22 124/76 98 Room Air 12/22/16 16:00 Room Air 12/22/16 15:26 36.9 58 20 121/67 92 Room Air 12/22/16 13:54 60 148/83 66 148/74 59 151/75 12/22/16 12:13 36.0 52 16 111/70 97 Room Air 12/22/16 12:00 97 Room Air (Briana Narayan PA-C) Physical Exam General Appearance: no apparent distress Eyes: EOMI Neck: no JVD Respiratory/Chest: lungs clear Cardiovascular: + pertinent finding (occasionally irregular. No murmurs auscultated.) Abdomen: normal bowel sounds, non tender, soft Extremities: non-tender, no pedal edema Neurologic/Psychiatric: oriented x 3, + pertinent finding (no focal motor weakness noted.) Skin: warm/dry (Briana Narayan PA-C) Laboratory Results 12/23/16 06:05 Red Blood Count 4.17, Mean Corpuscular Volume 90.2, Mean Corpuscular Hemoglobin 29.5, Mean Corpuscular Hemoglobin Concent 32.7, Mean Platelet Volume 11.0, Neutrophils (%) (Auto) 72.7, Lymphocytes (%) (Auto) 16.9, Monocytes (%) (Auto) 8.7, Eosinophils (%) (Auto) 1.3, Basophils (%) (Auto) 0.2, Neutrophils # (Auto) 3.35, Lymphocytes # (Auto) 0.78, Monocytes # (Auto) 0.40, Eosinophils # (Auto) 0.06, Basophils # (Auto) 0.01 12/23/16 06:05 Test 12/22/16 21:01 12/23/16 06:05 Total Creatine Kinase 33 U/L (26-192) Creatine Kinase MB 2.5 ng/ml (0.5-3.6) Creatine Kinase MB Ratio 7.6 (0-3.0) Troponin I 0.115 ng/ml (0-0.045) White Blood Count 4.61 K/uL (4.8-10.8) Red Blood Count 4.17 M/uL (4.2-5.4) Hemoglobin 12.3 g/dL (12.0-16.0) Hematocrit 37.6 % (37-47) Mean Corpuscular Volume 90.2 fL (80-100) Mean Corpuscular Hemoglobin 29.5 pg (25-34) Mean Corpuscular Hemoglobin Concent 32.7 g/dl (32-36) Platelet Count 124 K/uL (130-400) Mean Platelet Volume 11.0 fL (7.4-10.4) Neutrophils (%) (Auto) 72.7 % Lymphocytes (%) (Auto) 16.9 % Monocytes (%) (Auto) 8.7 % Eosinophils (%) (Auto) 1.3 % Basophils (%) (Auto) 0.2 % Neutrophils # (Auto) 3.35 K/uL (1.4-6.5) Lymphocytes # (Auto) 0.78 K/uL (1.2-3.4) Monocytes # (Auto) 0.40 K/uL (0.11-0.59) Eosinophils # (Auto) 0.06 K/uL (0-0.5) Basophils # (Auto) 0.01 K/uL (0-0.2) RDW Standard Deviation 49.6 fL (36.4-46.3) RDW Coefficient of Variation 15.0 % (11.5-14.5) Immature Granulocyte % (Auto) 0.2 % Immature Granulocyte # (Auto) 0.01 K/uL (0.00-0.02) Activated Partial Thromboplast Time 112.0 SECONDS (21.0-31.0) Partial Thromboplastin Ratio 4.3 Anion Gap 9.0 mmol/L (3-11) Est Creatinine Clear Calc Drug Dose 49.2 ml/min Estimated GFR () 61.6 Estimated GFR (Non- 53.2 BUN/Creatinine Ratio 22.4 (10-20) Calcium Level 8.6 mg/dl (8.5-10.1) Magnesium Level 1.9 mg/dl (1.8-2.4) Last 24 Hours Test 12/22/16 12:35 12/22/16 21:01 12/23/16 06:05 Activated Partial Thromboplast Time 68.5 SECONDS 112.0 SECONDS Partial Thromboplastin Ratio 2.6 4.3 Total Creatine Kinase 37 U/L 33 U/L Creatine Kinase MB 2.7 ng/ml 2.5 ng/ml Creatine Kinase MB Ratio 7.3 7.6 Troponin I 0.138 ng/ml 0.115 ng/ml White Blood Count 4.61 K/uL Red Blood Count 4.17 M/uL Hemoglobin 12.3 g/dL Hematocrit 37.6 % Mean Corpuscular Volume 90.2 fL Mean Corpuscular Hemoglobin 29.5 pg Mean Corpuscular Hemoglobin Concent 32.7 g/dl Platelet Count 124 K/uL Mean Platelet Volume 11.0 fL Neutrophils (%) (Auto) 72.7 % Lymphocytes (%) (Auto) 16.9 % Monocytes (%) (Auto) 8.7 % Eosinophils (%) (Auto) 1.3 % Basophils (%) (Auto) 0.2 % Neutrophils # (Auto) 3.35 K/uL Lymphocytes # (Auto) 0.78 K/uL Monocytes # (Auto) 0.40 K/uL Eosinophils # (Auto) 0.06 K/uL Basophils # (Auto) 0.01 K/uL RDW Standard Deviation 49.6 fL RDW Coefficient of Variation 15.0 % Immature Granulocyte % (Auto) 0.2 % Immature Granulocyte # (Auto) 0.01 K/uL Sodium Level 143 mmol/L Potassium Level 4.0 mmol/L Chloride Level 108 mmol/L Carbon Dioxide Level 26 mmol/L Anion Gap 9.0 mmol/L Blood Urea Nitrogen 22 mg/dl Creatinine 1.00 mg/dl Est Creatinine Clear Calc Drug Dose 49.2 ml/min Estimated GFR () 61.6 Estimated GFR (Non- 53.2 BUN/Creatinine Ratio 22.4 Random Glucose 96 mg/dl Calcium Level 8.6 mg/dl Magnesium Level 1.9 mg/dl (Briana Narayan PA-C) Diagnostic Results Interpretation Summary * Name: KEISHA CARDENAS Study Date: 12/22/2016 06:47 AM BP: 122/78 mmHg * Patient Location: 2\\[id number]\\[id number]\\[id number]\\1 HR: 118 * : 1935 (M/d/yyyy) Gender: Female Height: 63 in * Age: 81 yrs Ethnicity: MN Weight: 209 lb * Ordering Physician: Aiden Zamora * Referring Physician: Self, Referred * Performed By: Sharon Campos RCS * * Reason For Study: A-FIB * BSA: 2.0 m2 * -- Conclusions -- * The left ventricle is grossly normal size. * Ejection Fraction = 65-70%. * Left ventricular systolic function is normal. * The left ventricular wall motion is normal. * There is moderate concentric left ventricular hypertrophy. * Diastolic dysfunction, Grade II (pseudonormalization pattern). * There is severe mitral annular calcification. * At least mild to moderate mitral regurgitation. Mitral annular calcification precludes definitive assessment. * No significant mitral valve stenosis. * There is mild tricuspid regurgitation. * Right ventricular systolic pressure is elevated at 30-40mmHg. (Briana Narayan PA-C) Assessment and Plan 81-year-old female presented to the emergency department this morning with complaints of chest pain. New diagnosis of A. fib with RVR A. fib with RVR-spontaneously converted to NSR on 12/23/16-rate controlled BP stable -echo grade II diastolic dysfunction EF 65-70% -appreciate cards recs -Chads score of 2-start on coumadin 5 mg daily-heparin gtt d/c'ed -Change atenolol to metoprolol tartrate 25 mg BID HTN -Continue lisinopril 5 mg daily Parkinson's disease -Continue current doses of Sinemet CR 50/200 HS, Sinemet 25/100 2 tabs QID, Selegiline 5 mg BID -PT/OT "weak spells"-not associated with A. fib on the monitor here in the hospital -DC home with an event monitor -Could be autonomic dysfunction secondary to Parkinson's disease, however the patient was not orthostatic in house. -? rehab DVT prophylaxis -coumadin -TEDS, SCDs CODE STATUS -LEVEL I FULL CODE DISPO -medically stable for d/c -pending PT/OT eval-patient is interested in going to rehabilitation -either rehab or d/c home with Home health Case discussed with RN, CM and family (Briana Narayan, PANeel) Attending Attestation: Pt seen/examined, chart reviewed, care plan d/w MONIKA Narayan. I agree w/ the lopez components of her documentation. No a. fib since converting to NSR yesterday am. had another mild "spell" this am but no near-syncope or syncope. was "tired this am" and took a nap and felt much better right after. during my exam she offered no complaints VSS, afebrile gen - nad, masked facies heart - RR with occasional ectopy, s1, s2 lungs - CTA b/l abd - soft ext - trace edema BMP nl A/P: 1. a. fib - resolved, now in NSR. appreciate cardiology consult. to start coumadin 5mg daily with daily INR. stop heparin. 2. myocardial demand ischemia / + troponin - likely 2nd to #1 3. recent chest pain - cannot fully exclude ischemic in nature, especially with #2. Agree w/ outpatient stress. 4. "spells" at home - described as near-syncopal --- autonomic insufficiency due to parkinson's?? although orthos were negative. spells while hospitalized have not been associated with a. fib on monitoring. plan - 30day event monitor as outpatient to ensure some of the spells are not in fact arrhythmia related although I doubt we will find such correlation PT/OT both have seen; PT feels she can return home, OT feels she needs rehab I discussed this with pt I have deferred to her and her daughter their desires for disposition Will support them either way check u/a and urine cx to ensure fatigue/spells is not due to brewing UTI Lay BECKETT MD (Niraj Beckett MD)
[2016-12-23] MEDS ORDERED: CMD5 PO (14:13)
--- NOTE | 2016-12-23 14:15 | Cardiology Follow-Up ---
Subjective Subjective Date of Service: Dec 23, 2016. Pt evaluation today including: conversation w/ patient, physical exam, chart review, lab review, review of studies, review of inpatient medication list Additional Details: Feeling at baseline this AM. No chest pain or shortness of breath. No palpitations. [place] as if a weak spell was coming on earlier but nothing like home episodes. Tele reviewed -- No events. Problem List Medical Problems: (1) Atrial fibrillation with RVR Status: Acute (2) Hypernatremia Status: Acute (3) UTI (urinary tract infection) Status: Acute (4) Weakness Status: Acute (5) Weakness Status: Acute Review of Systems Constitutional: + fatigue, No fever Respiratory: No shortness of breath Cardiac: No chest pain, No palpitations Breast: No problem reported Abdomen: No nausea, No pain Musculoskeletal: No calf pain, No problem reported Female : No problem reported Neurologic: + balance problems, + memory loss, + problem reported (tremor, weakness) Psychiatric: No problem reported Heme: No abnormal bleeding/bruising Endo: No problem reported Skin: No rash Objective Vital Signs Last Vital Signs Documentation Date Time Temp Pulse Resp B/P Pulse Ox O2 Delivery O2 Flow Rate FiO2 12/23/16 11:44 36.6 66 18 109/63 97 12/23/16 08:00 Room Air Physical Exam: General Appearance: no apparent distress Eyes: bilateral eyes EOMI, bilateral eyes PERRL, bilateral eyes normal inspection ENT: hearing grossly normal Neck: no JVD Respiratory/Chest: lungs clear, no respiratory distress Cardiovascular: regular rate, rhythm, no edema, no murmur, + bradycardia, + pertinent finding Abdomen: normal bowel sounds, non tender, soft Extremities: no pedal edema, no calf tenderness Neurologic/Psychiatric: oriented x 3 Skin: warm/dry Assessment and Plan 1. AF + RVR 2. Elevated troponin 3. Hypertension 4. Parkinson's 5. Weakness spells Has remained in sinus rhythm. No recurrent chest pain and troponin peaked. -- Agree with continued metoprolol and anticoagulation with coumadin -- Can consider possible stress test, ambulatory monitoring as an outpatient. Can follow-up with cardiology clinic in 2-4 weeks. Medications: Current Inpatient Medications Medications (Trade) Dose Ordered Sig/Geronimo Route Start Time Stop Time Status Last Admin Dose Admin Acetaminophen (Tylenol Tab) 650 mg Q4H PRN PO 12/22/16 05:00 3/29/17 04:59 Nitroglycerin (Nitrostat Tab) 0.4 mg UD PRN SL 12/22/16 05:00 01/21/17 04:59 Aspirin (Ecotrin Tab) 81 mg QAM PO 12/22/16 09:00 01/21/17 08:59 12/23/16 09:07 81 MG Calcium/Vitamin D (Caltrate Plus Tab) 1 tab DAILY PO 12/22/16 09:00 01/21/17 08:59 12/23/16 09:06 1 TAB Carbidopa/Levodopa (Sinemet 25/ 100MG Tab) 2 tab QID PO 12/22/16 09:00 01/21/17 08:59 12/23/16 13:30 2 TAB Cholecalciferol (Vitamin D Tab) 1,000 inter.unit DAILY PO 12/22/16 09:00 01/21/17 08:59 12/23/16 09:07 1,000 INTER.UNIT Donepezil HCl (Aricept Tab) 10 mg HS PO 12/22/16 21:00 01/21/17 20:59 12/22/16 21:32 10 MG Lisinopril (Zestril Tab) 5 mg DAILY PO 12/22/16 09:00 01/21/17 08:59 12/23/16 09:07 5 MG Multivitamins/ Minerals (Multivitamin W/ Minerals Tab) 1 tab DAILY PO 12/22/16 09:00 01/21/17 08:59 12/23/16 09:07 1 TAB Ropinirole HCl (Requip Tab) 0.25 mg HS PO 12/22/16 21:00 01/21/17 20:59 12/22/16 21:32 0.25 MG Selegiline HCl (Eldepryl Cap) 5 mg BID PO 12/22/16 09:00 01/21/17 08:59 12/23/16 09:07 5 MG Ondansetron HCl (Zofran Inj) 4 mg Q6H PRN IV 12/22/16 05:00 01/21/17 04:59 Carbidopa/Levodopa (Sinemet Cr 50/ 200MG Tab) 1 tab HS PO 12/22/16 21:00 01/21/17 20:59 12/22/16 21:32 1 TAB Metoprolol Tartrate (Lopressor Tab) 25 mg BID PO 12/22/16 21:00 01/21/17 20:59 12/23/16 09:07 25 MG Warfarin Sodium (Coumadin Tab) 5 mg DAILY@16 PO 12/23/16 16:00 01/22/17 15:59 Lab Results: 12/23/16 06:05 Red Blood Count 4.17, Mean Corpuscular Volume 90.2, Mean Corpuscular Hemoglobin 29.5, Mean Corpuscular Hemoglobin Concent 32.7, Mean Platelet Volume 11.0, Neutrophils (%) (Auto) 72.7, Lymphocytes (%) (Auto) 16.9, Monocytes (%) (Auto) 8.7, Eosinophils (%) (Auto) 1.3, Basophils (%) (Auto) 0.2, Neutrophils # (Auto) 3.35, Lymphocytes # (Auto) 0.78, Monocytes # (Auto) 0.40, Eosinophils # (Auto) 0.06, Basophils # (Auto) 0.01 12/23/16 06:05 Test 12/22/16 21:01 12/23/16 06:05 12/23/16 14:00 Total Creatine Kinase 33 U/L (26-192) Creatine Kinase MB 2.5 ng/ml (0.5-3.6) Creatine Kinase MB Ratio 7.6 (0-3.0) Troponin I 0.115 ng/ml (0-0.045) White Blood Count 4.61 K/uL (4.8-10.8) Red Blood Count 4.17 M/uL (4.2-5.4) Hemoglobin 12.3 g/dL (12.0-16.0) Hematocrit 37.6 % (37-47) Mean Corpuscular Volume 90.2 fL (80-100) Mean Corpuscular Hemoglobin 29.5 pg (25-34) Mean Corpuscular Hemoglobin Concent 32.7 g/dl (32-36) Platelet Count 124 K/uL (130-400) Mean Platelet Volume 11.0 fL (7.4-10.4) Neutrophils (%) (Auto) 72.7 % Lymphocytes (%) (Auto) 16.9 % Monocytes (%) (Auto) 8.7 % Eosinophils (%) (Auto) 1.3 % Basophils (%) (Auto) 0.2 % Neutrophils # (Auto) 3.35 K/uL (1.4-6.5) Lymphocytes # (Auto) 0.78 K/uL (1.2-3.4) Monocytes # (Auto) 0.40 K/uL (0.11-0.59) Eosinophils # (Auto) 0.06 K/uL (0-0.5) Basophils # (Auto) 0.01 K/uL (0-0.2) RDW Standard Deviation 49.6 fL (36.4-46.3) RDW Coefficient of Variation 15.0 % (11.5-14.5) Immature Granulocyte % (Auto) 0.2 % Immature Granulocyte # (Auto) 0.01 K/uL (0.00-0.02) Anion Gap 9.0 mmol/L (3-11) Est Creatinine Clear Calc Drug Dose 49.2 ml/min Estimated GFR () 61.6 Estimated GFR (Non- 53.2 BUN/Creatinine Ratio 22.4 (10-20) Calcium Level 8.6 mg/dl (8.5-10.1) Magnesium Level 1.9 mg/dl (1.8-2.4)
--- NOTE | 2016-12-23 14:27 | Discharge Instructions ---
Discharge Instructions Admission Reason for Admission: Atrial Fibrillation W/ Rvr (Briana Narayan PA-C) Discharge Discharge Diagnosis / Problem: atrial fibrillation with RVR (Briana Narayan PA-C) Discharge Goals Goal(s): Diagnostic testing, Therapeutic intervention (Briana Narayan PA-C) Activity Recommendations Activity Limitations: per Instructions/Follow-up section Exercise/Sports Limitations: as tolerated . Please use a walker to get around at all times. (Briana Narayan PA-C) Instructions / Follow-Up Instructions / Follow-Up You were admitted to the hospital for chest pain. It was found that you have a new diagnosis of atrial fibrillation. This is a heart arrhythmia. It is unclear if this has anything to do with your weakness spells. A superintendent mechanical has been arranged for home The following changes/addition have been made to your medications: -Please discontinue atenolol -Please begin warfarin 5 mg tabs one daily in the evening -Please begin metoprolol tartrate 25 mg twice daily -Please take Mucinex 1200 mg twice daily for 5 days for mild cough -Xopenex inhaler 1 puff every 4 hrs as needed for shortness of breath or wheeze Please have a PT/INR checked daily while at [facility] Please follow-up with your primary care physician within 1 week Please follow up with cardiology as scheduled on January 13 Call your doctor or return to the emergency department if you have any of the following symptoms: -Fever of 101F or greater -Persistent vomiting - Persistent diarrhea -Lethargy -Chest pain -Shortness of breath -severe dizziness (Briana Narayan PA-C) Current Hospital Diet Patient's current hospital diet: AHA Diet (Heart Healthy) (Briana Narayan, SHERYL) Discharge Diet Recommended Diet: AHA Diet (Heart Healthy) (Briana Narayan, MONIKA-C) Procedures Procedures Performed: echo-- Conclusions -- The left ventricle is grossly normal size. Ejection Fraction = 65-70%. Left ventricular systolic function is normal. The left ventricular wall motion is normal. There is moderate concentric left ventricular hypertrophy. Diastolic dysfunction, Grade II (pseudonormalization pattern). There is severe mitral annular calcification. At least mild to moderate mitral regurgitation. Mitral annular calcification precludes definitive assessment. No significant mitral valve stenosis. There is mild tricuspid regurgitation. Right ventricular systolic pressure is elevated at 30-40mmHg. (Briana Narayan PA-C) Pending Studies Studies pending at discharge: no (Briana Narayan PA-C) Medical Emergencies . Who to Call and When: Medical Emergencies: If at any time you feel your situation is an emergency, please call 911 immediately. . (Briana Narayan PA-C) Non-Emergent Contact Non-Emergency issues call your: Primary Care Provider . (Briana Narayan PA-C) . "Provider Documentation" section prepared by Briana Narayan. (Briana Narayan PA-C) Attending Attestation: Pt seen/examined on day of discharge with MONIKA Narayan and I agree with her discharge instructions as outlined. Niraj Beckett MD (Niraj Beckett MD) VTE Core Measure Inpt VTE Proph given/why not?: Unfractionated heparin SQ (Briana Narayan PA-C)
[2016-12-23] MEDS ORDERED: WARFARIN SOD 5 MG TAB PO SCH (16:00)
[2016-12-23] MEDS: ROPINIROLE HCL 0.25 MG TAB PO SCH (20:48)
[2016-12-23] MEDS: CARBIDOPA/LEVODOPA 50/200MG EXT REL TAB PO SCH (20:48)
[2016-12-23] MEDS: DONEPEZIL HCL 10 MG TAB PO SCH (20:50)
[2016-12-24 07:46] VITALS: BP 122/72; PULSE 58; TEMP 36.8; O2SAT 97
[2016-12-24] MEDS: CEROVITE ADV FORMULA TAB PO SCH (07:48)
[2016-12-24] MEDS: ASPIRIN 81 MG ECTAB PO SCH (07:49)
[2016-12-24] MEDS: CARBIDOPA/LEVODOPA 25/100MG TAB PO SCH ×2 (07:50→11:38)
[2016-12-24] MEDS: CHOLECALCIFEROL 1000 INTER.UNIT TAB PO SCH (07:50)
[2016-12-24] MEDS: LISINOPRIL 5 MG TAB PO SCH (07:50)
[2016-12-24] MEDS: SELEGILINE HCL 5 MG CAP PO SCH (07:50)
[2016-12-24] MEDS: CALCIUM 600MG + VIT D 400 IU TAB PO SCH (07:50)
[2016-12-24] MEDS: METOPROLOL TARTRATE 25 MG TAB PO SCH ×2 (07:51→10:05)
[2016-12-24 08:44] LABS: URINE APPEARANCE CLEAR (CLEAR); URINE BILIRUBIN NEG (NEG); URINE COLOR YELLOW; URINE NITRITE NEG (NEG); URINE PH 5.5 (4.5-7.5); URINE SPECIFIC GRAVITY 1.006 (1.000-1.030); UROBILINOGEN NEG (NEG)
[2016-12-24 08:47] LABS: MANUAL MICROSCOPIC REQUIRED? NO; REVIEW REQ? NO
[2016-12-24 09:07] LABS: COMPLETE YES; EOS % 0.3 %; HEMATOCRIT 40.1 % (37-47); IG% 0.2 %; LYMPH ABS # 0.66 K/uL (1.2-3.4); MEAN CELL VOLUME 87.9 fL (80-100); MEAN CORPUSCULAR HEMOGLOBIN 29.6 pg (25-34); MEAN CORPUSCULAR HGB CONC 33.7 g/dl (32-36); MEAN PLATELET VOLUME 10.5 fL (7.4-10.4); MONO % 8.2 %; NEUT % 80.3 %; PLATELET COUNT 114 K/uL (130-400); RED BLOOD COUNT 4.56 M/uL (4.2-5.4); WHITE BLOOD COUNT 5.98 K/uL (4.8-10.8)
[2016-12-24 09:17] LABS: PROTHROMBIN TIME (PATIENT) 10.6 SECONDS (9.0-12.0)
[2016-12-24 09:36] LABS: BUN/CREATININE RATIO 21.5 (10-20); CALCIUM 9.5 mg/dl (8.5-10.1); CREATININE 0.91 mg/dl (0.60-1.20)
[2016-12-24 10:10] VITALS: BP 122/72; PULSE 58; TEMP 36.8; O2SAT 97
[2016-12-24] MEDS ORDERED: LPR25 PO (11:30)
--- NOTE | 2016-12-24 11:42 | Discharge Summary ---
Discharge Summary Date of Service Dec 24, 2016. (Briana Narayan PA-C) Discharge Summary Admission Date: Dec 22, 2016 at 05:04 Discharge Date: Dec 23, 2016 Discharge Disposition: residential facility Principal Diagnosis: A. fib with RVR Problems/Secondary Diagnoses: parkinson's disease Procedures: echo 12/22 Interpretation Summary * Name: KEISHA CARDENAS Study Date: 12/22/2016 06:47 AM BP: 122/78 mmHg * Patient Location: [facility]\\S\\[id number]\\[id number]\\1 HR: 118 * : 1935 (M/d/yyyy) Gender: Female Height: 63 in * Age: 81 yrs Ethnicity: [place] Weight: 209 lb * Ordering Physician: Aiden Zamora * Referring Physician: Self, Referred * Performed By: Sharon Campos RCS * * Reason For Study: A-FIB * BSA: 2.0 m2 * -- Conclusions -- * The left ventricle is grossly normal size. * Ejection Fraction = 65-70%. * Left ventricular systolic function is normal. * The left ventricular wall motion is normal. * There is moderate concentric left ventricular hypertrophy. * Diastolic dysfunction, Grade II (pseudonormalization pattern). * There is severe mitral annular calcification. * At least mild to moderate mitral regurgitation. Mitral annular calcification precludes definitive assessment. * No significant mitral valve stenosis. * There is mild tricuspid regurgitation. * Right ventricular systolic pressure is elevated at 30-40mmHg. Consultations: Cardiology (Briana Narayan PA-C) Problems/Secondary Diagnoses: possible LLL community-acquired pneumonia "spells" of weakness & dizziness - etiology uncertain type 2 [place] / myocardial demand ischemia acute kidney injury - admission Cr 1.2, discharge Cr 0.9 (Niraj Beckett MD) Medication Reconciliation New Medications: Guaifenesin Ext Rel (Mucinex Ext Rel) 600 Mg Tabcr 1200 MG PO Q12 for 5 Days, #20 TAB Levalbuterol Tartrate (Levalbuterol Tartrate Hfa) 45 Mcg/Act Aer 1 PUFF INH Q6H for Shortness of Breath, #1 APPL Levofloxacin (Levaquin) 500 Mg Tab 500 MG PO DAILY for 7 Days Metoprolol Tartrate (Lopressor) 25 Mg Tab 25 MG PO BID for 30 Days, TAB Warfarin Sod (Coumadin) 5 Mg Tab 5 MG PO DAILY@16 for 20 Days, #20 TAB Continued Medications: Artificial Tear Ointment (Eye Lubricant) 1 Oin Oin 1 APPLN OPB HS Biotin (Biotin) 5,000 Mcg Cap 5000 MCG PO DAILY Calcium Carbonate-Vitamin D W/ (Caltrate 600 Plus) 1 Tab Tab 1 TAB PO DAILY, TAB Carbidopa-Levodopa (Sinemet Cr 50-200 mg) 1 Tab Tab 1 TAB PO HS Carbidopa/Levodopa (Sinemet 25MG/100MG) Tab 2 TABS PO QID, TAB Cholecalciferol (Vitamin D3) 1,000 Unit Tab 1 TAB PO DAILY for 90 Days, #90 TAB 3 Refills Donepezil Hydrochloride (Donepezil Hcl) 5 Mg Tab 5 MG PO DAILY, 3 Refills Furosemide (Lasix) 40 Mg Tab 40 MG PO DAILY PRN for SWELLING, TAB Lisinopril (Prinivil) 5 Mg Tab 5 MG PO DAILY, TAB Multiple Vitamins W/ Minerals (Ocuvite) 1 Tab Tab 1 TAB PO DAILY Selegiline HCl (Selegiline HCl) 5 Mg Tab 5 MG PO BID Discontinued Medications: Atenolol (Tenormin) 50 Mg Tab 50 MG PO DAILY, TAB Referrals At Discharge Follow up Referrals: [employer] Referral - Within a Month with Satya Stevens MD Discharge Exam Patient feeling well this morning. Denies any chest pain or pressure overnight. No heart palpitations, dizziness or shortness of breath. The patient does admit to being confused overnight. Denies any fever or chills. No changes in bowel habits. No nausea. Mild cough Review of Systems: Constitutional: No fever Respiratory: + cough, No shortness of breath Cardiovascular: No chest pain Abdomen: No nausea Physical Exam: General Appearance: no apparent distress Neck: no JVD Respiratory/Chest: lungs clear Cardiovascular: regular rate, rhythm Abdomen / GI: normal bowel sounds, non tender, soft Extremities: no calf tenderness, no pedal edema Neurologic/Psychiatric: no motor/sensory deficits, oriented x 3 Skin: warm/dry (Briana Narayan, SHERYL) Hospital Course 81-year-old female presented to the emergency department this morning with complaints of chest pain. New diagnosis of A. fib with RVR A. fib with RVR-spontaneously converted to NSR on 12/23/16-rate controlled BP stable. INR 1.0. No events on tele overnight -Admitted to telemetry -Heparin drip started -echo grade II diastolic dysfunction EF 65-70% -cards consult -Chads score of 2-started on coumadin 5 mg daily-heparin gtt d/c'ed. No need to bridge -Change atenolol to metoprolol tartrate 25 mg BID HTN -Continue lisinopril 5 mg daily -atenolol d/c'ed Episode of confusion overnight-no neuro deficits noted this morning. Likely secondary to ing. Urinalysis negative. TSH within normal range. Vitamin B-12 and thiamine levels pending Parkinson's disease -Continue current doses of Sinemet CR 50/200 HS, Sinemet 25/100 2 tabs QID, Selegiline 5 mg BID -PT/OT "weak spells"-not associated with A. fib on the monitor here in the hospital. Chronic have been going on for months -Event monitor ordered upon discharge -Could be autonomic dysfunction secondary to Parkinson's disease, however the patient was not orthostatic in house. -Continue PT/OT Mild cough-Repeat CXR improving infiltrate-afebrile, no SOB, clinically not showing signs of PNA -Will tx with Levaquin 500 mg po daily x 7 days -mucinex 1200 mg BID x 5 days -xopenex inhaler q 4 hr prn DVT prophylaxis -coumadin -TEDS, SCDs CODE STATUS -LEVEL I FULL CODE DISPO -medically stable for d/c -[facility] for rehab Case discussed at length with RN, CM and family. Total Time Spent: Greater than 30 minutes This includes examination of the patient, discharge planning, medication reconciliation, and communication with other providers. (Briana Narayan, PAJonahC) Attending Attestation: Pt seen/examined, chart reviewed, and care plan d/w MONIKA Narayan on day of discharge. I agree with the lopez components of her discharge summary. 81yo female with severe parkinson's disease who presented with rapid a. fib. She was treated with heparin drip and beta blockade. Fortunately she converted to NSR prior to discharge. Had customary work-up including echo, TSH, etc. ECHO w/ findings as above. Seen by cardiology for her a. fib and mildly elevated troponin. Anticoagulation recommended. She will take coumadin for such. Outpatient stress test recommended. The patient for several months has had 'spells' where she has extreme dizziness & fatigue. During her stay she had 2-3 of these. Monitoring during the spells did NOT show a. fib or other dysrhythmia. Orthostatic BPs were normal. She will be set up for outpatient 30-day event monitor to see if any of these spells are arrhythmogenic. She will f/u with Dr. Alan, [facility], for her PD. There was some question of a LLL pneumonia on cxr. The patient had had a cough prior to this admission. She will complete a course of abx after discharge. Discharge exam - gen - nad neck - no JVD heart - RRR, s1, s2, no murmur lungs - fine rales left base, mild end-exp wheeze b/l abd - soft, NT ext - no edema neuro - masked facies, increased tone/rigidity in her arms/legs She will transfer to [facility] for rehab after discharge. Niraj Beckett MD Total Time Spent: Greater than 30 minutes (Niraj Beckett MD) Discharge Instructions Please refer to the electronic Patient Visit Report (Discharge Instructions) for additional information. (Briana Narayan PA-C) Follow-Up cardiology 2-4 weeks PCP within 1 week (Briana Narayan PA-C) Additional Copies To Satya Stevens MD; Edwige Mason DO
[2016-12-24] MEDS ORDERED: GFNSR600 PO (12:44)
[2016-12-24] MEDS ORDERED: LEVA45AE INH (12:44)
--- NOTE | 2016-12-24 13:17 | DIAGNOSTIC IMAGING REPORT ---
CHEST ONE VIEW PORTABLE CLINICAL HISTORY: wheeze cough r/o PNA dyspnea COMPARISON STUDY: 12/22/2016 FINDINGS: Mildly improved exam. Mild improvement in aeration left base. Lungs otherwise are clear. Stable substernal thyroid on the right. IMPRESSION: Improving parenchymal infiltrate left base Electronically signed by: Aquilino Galvez M.D. 12/24/2016 1:16 PM Dictated Date/Time: 12/24/2016 1:15 PM
[2016-12-24] MEDS ORDERED: LEVO-366 PO (13:29)
[2016-12-24 13:40] VITALS: BP 122/72; PULSE 58; TEMP 36.8; O2SAT 97
[2017-01-31] MEDS ORDERED: VANC5CAP PO (10:02)
[2017-01-31] MEDS ORDERED: QSTP PO (10:02)
[2017-04-05] MEDS ORDERED: BND25 PO (15:07)
== END 2016-12-24 14:35 | DRG 309 ==
LOC: ENRESERVTM → ENRESERVDT → EDBD 03:03 → C.EDB 03:05 → C.2T 05:04 → C.MS4W 12-24 10:22
PROVIDERS: ADMIT Hospitalist; ATTEND Internal Medicine
DX: I48.91 Unspecified atrial fibrillation (principal); I24.8 Other forms of acute ischemic heart disease; F05 Delirium due to known physiological condition; G20 Parkinson's disease; E78.5 Hyperlipidemia, unspecified; G25.81 Restless legs syndrome; F03.90 Unspecified dementia, unspecified severity, without behavioral disturbance, psychotic disturbance, mood disturbance, and anxiety; R07.9 Chest pain, unspecified; I10 Essential (primary) hypertension; R60.0 Localized edema; R05 Cough; R79.89 Other specified abnormal findings of blood chemistry; G90.8 Other disorders of autonomic nervous system; R55 Syncope and collapse; R53.1 Weakness; Z79.899 Other long term (current) drug therapy

== ENCOUNTER 2017-01-10 05:32 | Emergency (ER) | payer OTHER ==
[~2017-01-10] VITALS: Ht 160 cm; Wt 94.1 kg
[2017-01-10] VITALS (7 sets, daily range): BP systolic 127–128; BP diastolic 69–72; PULSE 56–69; TEMP 36.3–36.7; O2SAT 97–100; Ht 160 cm; Wt 94.1 kg
[~2017-01-10 05:32] MED LIST changes: +ARTIOIN6 OPB; -ATEN-174 PO; +BIOT1CAP3 PO; -BIOT1CAP8 PO; +CARB1TAB59 PO; -CEPH500C2 PO; +CMD5 PO; -DONE10TA12 PO; +DONE1TAB11 PO; +FRS/40 PO; +LEVA45AE INH; +LPR25 PO; -RQP25 PO
[2017-01-10] MEDS ORDERED: METOPROLOL TARTRATE 1 MG/ML VIAL IV STA (05:44)
[2017-01-10] MEDS ORDERED: SODIUM CHLORIDE 0.9% 1000ML 1,000 ML IV STA (05:46)
[2017-01-10 06:02] LABS: BASO % 0.2 %; BASO ABS # 0.01 K/uL (0-0.2); COMPLETE YES; IG% 0.5 %; LYMPH % 22.7 %; LYMPH ABS # 1.46 K/uL (1.2-3.4); MEAN CELL VOLUME 89.2 fL (80-100); MEAN CORPUSCULAR HEMOGLOBIN 29.7 pg (25-34); MEAN CORPUSCULAR HGB CONC 33.3 g/dl (32-36); MEAN PLATELET VOLUME 10.9 fL (7.4-10.4); MONO % 9.6 %; PLATELET COUNT 224 K/uL (130-400); RED BLOOD COUNT 4.82 M/uL (4.2-5.4); WHITE BLOOD COUNT 6.43 K/uL (4.8-10.8)
[2017-01-10 06:10] LABS: ALT/SGPT 9 U/L (12-78); BLOOD UREA NITROGEN 25 mg/dl (7-18); BUN/CREATININE RATIO 20.7 (10-20); CALCIUM 10.1 mg/dl (8.5-10.1); CARBON DIOXIDE 28 mmol/L (21-32); CHLORIDE 106 mmol/L (98-107); GLUCOSE 96 mg/dl (70-99); MAGNESIUM 2.1 mg/dl (1.8-2.4); POTASSIUM 4.3 mmol/L (3.5-5.1); SODIUM 142 mmol/L (136-145)
[2017-01-10 06:13] LABS: ALKALINE PHOSPHATASE 123 U/L (45-117); AST/SGOT 20 U/L (15-37)
[2017-01-10] MEDS ORDERED: DILTIAZEM BOLUS / DRIP IV STA (06:33)
[2017-01-10] MEDS ORDERED: DILTIAZEM HCL 5 MG/ML 5 ML VIAL IV STA (06:33)
--- NOTE | 2017-01-10 06:43 | DIAGNOSTIC IMAGING REPORT ---
CHEST ONE VIEW PORTABLE CLINICAL HISTORY: CHEST PAIN dyspnea COMPARISON STUDY: 12/24/2016 FINDINGS: Developing bibasilar parenchymal infiltrates. Mid and upper lungs are considered clear. IMPRESSION: Developing bibasilar parenchymal infiltrates Electronically signed by: Aquilino Galvez M.D. 01/10/2017 6:41 AM Dictated Date/Time: 01/10/2017 6:41 AM
[2017-01-10] MEDS ORDERED: DILTIAZEM HCL INJ 125 MG in DEXTROSE 5% 100ML IV PRN (06:45)
[2017-01-10 06:54] LABS: INR 1.9 (0.9-1.1); PARTIAL THROMBOPLASTIN RATIO 1.5; PROTHROMBIN TIME (PATIENT) 20.7 SECONDS (9.0-12.0)
[2017-01-10] MEDS ORDERED: LEVA45AE INH (07:07)
[2017-01-10] MEDS ORDERED: WARF2.5T8 PO ×2 (07:08→07:45)
[2017-01-10] MEDS ORDERED: NMN5 PO (07:10)
[2017-01-10] MEDS ORDERED: ZNTT/150 PO (07:11)
[2017-01-10] MEDS ORDERED: METO25TA56 PO (07:13)
[2017-01-10] MEDS ORDERED: CLOB1OIN2 TOP (07:17)
[2017-01-10] MEDS ORDERED: MULT-190 PO (07:18)
--- NOTE | 2017-01-10 08:02 | EMERGENCY ROOM VISIT NOTE ---
History Report prepared by Morales: Caden Plummer Under the Supervision of: Dr. Wolf Hussein M.D. First contact with patient: 05:39 Chief Complaint: CHEST PAIN Stated Complaint: CHEST PAIN History of Present Illness The patient is an 81 year old female who presents to the Emergency Room with complaints of persistent chest pain that started one hour prior to arrival. The discomfort woke her up from sleep. She notes that the discomfort radiated up to her left neck and jaw. She was recently diagnosed with AFib. The patient took Aspirin prior to arrival. Pt denies LOC, headache, fevers, chills, diaphoresis, visual changes, nausea, vomiting, abdominal pain, back pain, melena, hematochezia, urinary symptoms, numbness, lymphadenopathy, rash, or other complaints. 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 A total of ten systems were reviewed and were otherwise negative. Past Medical & Surgical Medical Problems: (1) Hyperlipidemia (2) Hyperosmolality and hypernatremia (3) Hypertension (4) Parkinsons Family History No pertinent family history Social History Smoking Status: Never Smoker Drug Use: none Marital Status: Housing Status: lives with significant other Occupation Status: retired Current/Historical Medications Scheduled Artificial Tear Ointment (Eye Lubricant), 1 APPLN OPB HS Biotin (Biotin), 5,000 MCG PO DAILY Calcium Carbonate-Vitamin D W/ (Caltrate 600 Plus), 600 MG PO DAILY Carbidopa-Levodopa (Sinemet Cr 50-200 mg), 1 TAB PO HS Carbidopa/Levodopa (Sinemet 25MG/100MG), 2 TABS PO QID Cholecalciferol (Vitamin D3), 1,000 UNITS PO DAILY Donepezil Hydrochloride (Donepezil Hcl), 5 MG PO DAILY Levalbuterol Tartrate (Levalbuterol Tartrate Hfa), 1 PUFF INH PRN Lisinopril (Prinivil), 5 MG PO DAILY Memantine (Namenda), 5 MG PO DAILY Metoprolol Tartrate (Lopressor) (Lopressor), 25 MG PO BID Ocuvite Preservision (Ocuvite Preservision), 1 TAB PO DAILY Ranitidine (Zantac), 150 MG PO BID Selegiline HCl (Selegiline HCl), 5 MG PO BID Warfarin Sod (Jantoven), 5 MG PO 3XWK Warfarin Sod (Jantoven), 2.5 MG PO 4XWK Scheduled PRN Clobetasol Propionate (Temovate), 1 APPLN TOP 2XWK PRN for UNDECIDED Furosemide (Lasix), 40 MG PO DAILY PRN for SWELLING Allergies Coded Allergies: Succinylcholine (Unverified Allergy, Severe, 12/22/16) Physical Exam Vital Signs Date Time Temp Pulse Resp B/P Pulse Ox O2 Delivery O2 Flow Rate FiO2 01/10/17 07:46 64 20 103/60 100 Nasal Cannula 2.0 01/10/17 07:00 68 28 121/78 98 Room Air 01/10/17 06:59 54 01/10/17 06:59 98 18 100 01/10/17 06:59 138 01/10/17 06:51 123/86 01/10/17 06:49 99 22 99 01/10/17 06:41 130/82 01/10/17 06:39 101 21 99 01/10/17 06:31 118/64 01/10/17 06:29 109 23 100 01/10/17 06:23 118/83 01/10/17 06:21 127 18 126/74 100 Room Air 01/10/17 06:20 126/74 01/10/17 06:19 89 24 100 01/10/17 06:15 114/86 01/10/17 06:13 144 99/82 100 01/10/17 06:12 99/82 01/10/17 06:09 86 18 100 01/10/17 06:05 120/88 01/10/17 05:59 98 24 100 01/10/17 05:55 144/96 01/10/17 05:53 155 125/102 01/10/17 05:49 93 23 98 01/10/17 05:41 99 Room Air 01/10/17 05:41 138 01/10/17 05:39 100 18 99 01/10/17 05:35 100 Room Air 01/10/17 05:35 36.6 146 27 144/96 100 Room Air Physical Exam GENERAL: Awake, alert, uncomfortable-appearing, in no distress HENT: Normocephalic, atraumatic. Oropharynx unremarkable. EYES: Normal conjunctiva. Sclera non-icteric. NECK: Supple. No nuchal rigidity. FROM. No JVD. RESPIRATORY: Clear to auscultation. CARDIAC: Irregular and tachycardic. Extremities warm and well perfused. Pulses equal. ABDOMEN: Soft, non-distended. No tenderness to palpation. No rebound or guarding. No masses. RECTAL: Deferred. MUSCULOSKELETAL: Chest examination reveals no tenderness. The back is symmetrical on inspection without obvious abnormality. There is no CVA tenderness to palpation. No joint edema. LOWER EXTREMITIES: Calves are equal size bilaterally and non-tender. 1+ lower extremity edema. Chronic venous discoloration. NEURO: Normal sensorium. No sensory or motor deficits noted. SKIN: No rash or jaundice noted. Medical Decision & Procedures ER Provider Diagnostic Interpretation: X-ray: Per my interpretation, radiologist review. CHEST ONE VIEW PORTABLE CLINICAL HISTORY: CHEST PAIN dyspnea COMPARISON STUDY: 12/24/2016 FINDINGS: Developing bibasilar parenchymal infiltrates. Mid and upper lungs are considered clear. IMPRESSION: Developing bibasilar parenchymal infiltrates Electronically signed by: Aquilino Galvez M.D. 01/10/2017 6:41 AM Dictated Date/Time: 01/10/2017 6:41 AM Laboratory Results 01/10/17 05:00 Red Blood Count 4.82, Mean Corpuscular Volume 89.2, Mean Corpuscular Hemoglobin 29.7, Mean Corpuscular Hemoglobin Concent 33.3, Mean Platelet Volume 10.9, Neutrophils (%) (Auto) 65.0, Lymphocytes (%) (Auto) 22.7, Monocytes (%) (Auto) 9.6, Eosinophils (%) (Auto) 2.0, Basophils (%) (Auto) 0.2, Neutrophils # (Auto) 4.18, Lymphocytes # (Auto) 1.46, Monocytes # (Auto) 0.62, Eosinophils # (Auto) 0.13, Basophils # (Auto) 0.01 01/10/17 05:00 Test 01/10/17 05:00 01/10/17 05:51 01/10/17 06:30 White Blood Count 6.43 K/uL (4.8-10.8) Red Blood Count 4.82 M/uL (4.2-5.4) Hemoglobin 14.3 g/dL (12.0-16.0) Hematocrit 43.0 % (37-47) Mean Corpuscular Volume 89.2 fL (80-100) Mean Corpuscular Hemoglobin 29.7 pg (25-34) Mean Corpuscular Hemoglobin Concent 33.3 g/dl (32-36) Platelet Count 224 K/uL (130-400) Mean Platelet Volume 10.9 fL (7.4-10.4) Neutrophils (%) (Auto) 65.0 % Lymphocytes (%) (Auto) 22.7 % Monocytes (%) (Auto) 9.6 % Eosinophils (%) (Auto) 2.0 % Basophils (%) (Auto) 0.2 % Neutrophils # (Auto) 4.18 K/uL (1.4-6.5) Lymphocytes # (Auto) 1.46 K/uL (1.2-3.4) Monocytes # (Auto) 0.62 K/uL (0.11-0.59) Eosinophils # (Auto) 0.13 K/uL (0-0.5) Basophils # (Auto) 0.01 K/uL (0-0.2) RDW Standard Deviation 48.9 fL (36.4-46.3) RDW Coefficient of Variation 15.1 % (11.5-14.5) Immature Granulocyte % (Auto) 0.5 % Immature Granulocyte # (Auto) 0.03 K/uL (0.00-0.02) Anion Gap 8.0 mmol/L (3-11) Estimated GFR () 49.4 Estimated GFR (Non- 42.7 BUN/Creatinine Ratio 20.7 (10-20) Calcium Level 10.1 mg/dl (8.5-10.1) Magnesium Level 2.1 mg/dl (1.8-2.4) Total Bilirubin 0.9 mg/dl (0.2-1) Direct Bilirubin 0.1 mg/dl (0-0.2) Aspartate Amino Transf (AST/SGOT) 20 U/L (15-37) Alanine Aminotransferase (ALT/SGPT) 9 U/L (12-78) Alkaline Phosphatase 123 U/L (45-117) Total Creatine Kinase 45 U/L (26-192) Creatine Kinase MB 0.9 ng/ml (0.5-3.6) Creatine Kinase MB Ratio 2.0 (0-3.0) Total Protein 7.6 gm/dl (6.4-8.2) Albumin 3.6 gm/dl (3.4-5.0) Lipase 260 U/L (73-393) Bedside Troponin I 0.000 ng/ml (0-0.045) Prothrombin Time 20.7 SECONDS (9.0-12.0) Prothromb Time International Ratio 1.9 (0.9-1.1) Activated Partial Thromboplast Time 38.3 SECONDS (21.0-31.0) Partial Thromboplastin Ratio 1.5 Laboratory results reviewed by me Medications Administered Medications (Trade) Dose Ordered Sig/Geronimo Route Start Time Stop Time Status Last Admin Dose Admin Metoprolol Tartrate 15 mg 15 mg NOW STAT IV 01/10/17 05:44 01/10/17 05:47 DC 01/10/17 05:53 15 MG Sodium Chloride (Nss 1000ml) 1,000 ml @ 75 mls/hr [id number] STAT IV 01/10/17 05:46 01/10/17 19:05 01/10/17 05:57 75 MLS/HR ECG Indication: chest pain Rate (beats per minute): 147 Rhythm: atrial fibrillation Findings: Q waves (Anterior and septal), other (RVR) Comparison ECG Date: Lateral and septal q waves are new when compared to EKG from Dec 232016. ST depression is present. Change: Repeat EKG: Sinus bradycardia with PACs. Rate of 57. No acute ischemia, no ectopy. ST depressions have resolved. ED Course 0542: The patient was evaluated in room B12. A complete history and physical exam was performed. 0544: Ordered Lopressor Iv 5 mg. 0546: Ordered NSS 1000 ml @ 75 mls/hr IV. 0548: At this time, I reevaluated the patient and her symptoms were improved after her first dose of Lopressor. 0550: Ordered Lopressor Iv 5 mg. 0554: Ordered Lopressor Iv 5 mg. 0622: At this time, I reevaluated the patient and she is feeling better and her pain had resolved. She is still tachycardic. 0633: Ordered Cardizem Inj 10 mg IB, Diltiazem HCl 1 ea IV. 0640: Prior to the next Bolus, the patient had a 2nd IV placed and her heart rate dropped. A repeat EKG was ordered. 0652: At this time, I discussed the patient's case with Dr. Vincent - Jackelyn YAÑEZ and she agreed to accept the patient for further evaluation. Medical Decision Triage Nursing notes reviewed. The patient's presentation and history were concerning for chest pain and rapid heartbeat. Etiologies such as dysrhythmia, cardiac ischemia, aortic dissection, pulmonary embolism, pneumonia, pneumothorax, musculoskeletal, infections, gastrointestinal , as well as others were entertained. The patient was evaluated. She was in rapid atrial fibrillation. She had ischemic change and ECG. This was concerning. The patient was given 5 mg of IV Lopressor 3. Her CBC, chemistry panel, cardiac markers and LFTs were unremarkable. The patient's chest x-ray had some poor vascular congestion bilaterally, mostly in the bases. She has not had any pulmonary symptoms recently. The patient was feeling better with regards to her pain as her heart rate decreased. The patient was still tachycardic and was ordered Cardizem. Just prior to initiation of this, the patient had an IV established again. Her heart rate decreased significantly. She is found to be in a sinus bradycardic rhythm. The Cardizem was not administered. The patient's chest pain and neck discomfort at that point in time was resolved. Repeat ECG revealed improvement in her ST segments. The patient and family were informed. She will need further evaluation and management in the hospital. Consultation was made with Dr. Vincent. The patient was evaluated for further treatment. The chart was completed utilizing [employer]ark Speech voice recognition software. Grammatical errors, random word insertions, pronoun errors, and incomplete sentences are an occasional consequence of this system due to software limitations, ambient noise, and hardware issues. Any formal questions or concerns about the content, text, or information contained within the body of this dictation should be directly addressed to the physician for clarification. Consults Time Called: 0645 Consulting Physician: Dr. Vincent - Jackelyn YAÑEZ Returned Call: 0622 At this time, I discussed the patient's case with Dr. Vincent and she agreed to accept the patient for further evaluation. Impression Primary Impression: Atrial fibrillation with RVR Additional Impression: Left sided chest pain Critical Care I have personally spent greater than 30 minutes of critical care time in the direct management of this patient. This includes bedside care, interpretation of diagnostic studies, and testing, discussion with consultants, patient, and family members, and other required patient management activities. This 30 minutes is in excess of all separately billable procedures. Scribe Attestation The scribe's documentation has been prepared under my direction and personally reviewed by me in its entirety. I confirm that the note above accurately reflects all work, treatment, procedures, and medical decision making performed by me. Departure Information Dispostion Being Evaluated By Hospitalist Referrals Edwige Mason DO (PCP) Problem Qualifiers
[2017-01-10] MEDS ORDERED: CARBIDOPA/LEVODOPA 25/100MG TAB PO ONE (09:19)
[2017-01-10] MEDS ORDERED: POLYETHYLENE (MIRALAX) 17 GM PACK PO PRN (09:30)
[2017-01-10] MEDS ORDERED: ONDANSETRON INJ 2 MG/ML 2 ML VIAL IV PRN (09:30)
[2017-01-10] MEDS ORDERED: ACETAMINOPHEN 325 MG TAB PO PRN (09:30)
[2017-01-10] MEDS ORDERED: MAGNESIUM HYDROXIDE SUSP 30 ML UDC PO PRN (09:30)
[2017-01-10] MEDS ORDERED: LEValbuterol HFA 15GM INHALER INH SCH (09:30)
[2017-01-10] MEDS ORDERED: FUROSEMIDE 40 MG TAB PO PRN (09:30)
[2017-01-10] MEDS ORDERED: ALUMINUM/MAGNESIUM/SIMETH (MAALOX MAX) 30 ML UDC PO PRN (09:30)
--- NOTE | 2017-01-10 09:43 | History and Physical ---
History & Physical Date & Time of Service: Jan 10, 2017 at 09:40 Chief Complaint: Chest Pain Primary Care Physician: Edwige Mason DO History of Present Illness Source: patient, family, hospital records Ms. Banks is an 81 y/o female with PMHx of Atrial Fibrillation (Nov 2016), HTN , HLD, Parkinson's, and Mild Dementia who presents to the emergency department with complaints of persistent chest pain that started at approximately 0430. Patient was recently admitted to [facility] in November due to new onset atrial fibrillation and chest pain. She is currently being followed by Dr. Stevens and is wearing a bus driver/monitor for rhythm monitoring. Per the daughter, patient has been rather well over the past few days. She has recently returned home from [facility] for acute rehabilitation. Patient lives at home with , daughter, and daughter's . Patient reports her symptoms today are very similar to when she was diagnosed with atrial fibrillation. This chest pain woke her from her sleep this morning. This chest pain radiates into the left neck and left jaw with some radiation into the right jaw. Patient is unable to describe the sensation however rates it as severe with a 12/10. Per the daughter, she took her pulse at home which felt rapid but did not count it. Patient received a loading dose of ASA per daughter. Patient and family are unsure if atrial fibrillation is paroxysmal or persistent. She is scheduled for a cardiology follow-up on Thursday at Dr. Stevens's office. They report a plan for possible stress testing in the future. She denies fever/chills, shortness of breath, N/V, abdominal pain, dysuria, constipation/diarrhea. In the ED, EKG significant for atrial fibrillation with RVR and evidence of T- wave inversion in leads III and V4-V6. She received Lopressor 15 mg IV which achieved rate control and rhythm conversion. She did experience some hypotension however this has resolved. Repeat EKG shows sinus bradycardia with PACs and resolution of T-wave inversion. INR 1.9. Initial troponin negative. She is afebrile without leukocytosis. No electrolyte abnormalities appreciated. CXR significant for developing bibasilar parenchymal infiltrate. She will be admitted to telemetry for rhythm monitoring and serial cardiac enzymes. Family History No pertinent family history Social History Smoking Status: Never Smoker Smokeless Tobacco Use: No Alcohol Use: none Drug Use: none Marital Status: Housing status: lives with family Occupational Status: retired Multi-Drug Resistant Organisms History of MDRO: No Allergies Coded Allergies: Succinylcholine (Unverified Allergy, Severe, 12/22/16) Home Medications Scheduled Artificial Tear Ointment (Eye Lubricant), 1 APPLN OPB HS Biotin (Biotin), 5,000 MCG PO DAILY Calcium Carbonate-Vitamin D W/ (Caltrate 600 Plus), 600 MG PO DAILY Carbidopa-Levodopa (Sinemet Cr 50-200 mg), 1 TAB PO HS Carbidopa/Levodopa (Sinemet 25MG/100MG), 2 TABS PO QID Cholecalciferol (Vitamin D3), 1,000 UNITS PO DAILY Donepezil Hydrochloride (Donepezil Hcl), 5 MG PO DAILY Levalbuterol Tartrate (Levalbuterol Tartrate Hfa), 1 PUFF INH PRN Lisinopril (Prinivil), 5 MG PO DAILY Memantine (Namenda), 5 MG PO DAILY Metoprolol Tartrate (Lopressor) (Lopressor), 25 MG PO BID Ocuvite Preservision (Ocuvite Preservision), 1 TAB PO DAILY Ranitidine (Zantac), 150 MG PO BID Selegiline HCl (Selegiline HCl), 5 MG PO BID Warfarin Sod (Jantoven), 5 MG PO 3XWK Warfarin Sod (Jantoven), 2.5 MG PO 4XWK Scheduled PRN Clobetasol Propionate (Temovate), 1 APPLN TOP 2XWK PRN for UNDECIDED Furosemide (Lasix), 40 MG PO DAILY PRN for SWELLING Review of Systems Constitutional: No chills, No fever Eyes: No worsening of vision ENT: No nasal symptoms, No sore throat, No trouble swallowing Respiratory: No cough, No shortness of breath Cardiovascular: + chest pain (with radiation to L neck and L and R jaw) Abdomen: No constipation, No diarrhea, No nausea, No pain, No vomiting Musculoskeletal: No calf pain, No swelling Genitourinary - Female: No dysuria Neurologic: + weakness (chronic; H/O Parkinsons) Hematologic / Lymphatic: No abnormal bleeding/bruising, No clotting problems Integumentary: No rash Physical Exam Vital Signs Date Time Temp Pulse Resp B/P Pulse Ox O2 Delivery O2 Flow Rate FiO2 01/10/17 09:28 54 12 130/36 100 Nasal Cannula 2.0 01/10/17 08:34 60 22 104/68 100 Nasal Cannula 2.0 01/10/17 07:46 64 20 103/60 100 Nasal Cannula 2.0 01/10/17 07:00 68 28 121/78 98 Room Air 01/10/17 06:59 54 01/10/17 06:59 98 18 100 01/10/17 06:59 138 01/10/17 06:51 123/86 01/10/17 06:49 99 22 99 01/10/17 06:41 130/82 01/10/17 06:39 101 21 99 01/10/17 06:31 118/64 01/10/17 06:29 109 23 100 01/10/17 06:23 118/83 01/10/17 06:21 127 18 126/74 100 Room Air 01/10/17 06:20 126/74 01/10/17 06:19 89 24 100 01/10/17 06:15 114/86 01/10/17 06:13 144 99/82 100 01/10/17 06:12 99/82 01/10/17 06:09 86 18 100 01/10/17 06:05 120/88 01/10/17 05:59 98 24 100 01/10/17 05:55 144/96 01/10/17 05:53 155 125/102 01/10/17 05:49 93 23 98 01/10/17 05:41 99 Room Air 01/10/17 05:41 138 01/10/17 05:39 100 18 99 01/10/17 05:35 100 Room Air 01/10/17 05:35 36.6 146 27 144/96 100 Room Air General Appearance: WD/WN, no apparent distress, + pertinent finding (mask- like face) Head: normocephalic, atraumatic Eyes: sclerae normal ENT: hearing grossly normal Neck: supple, no JVD, trachea midline Respiratory/Chest: lungs clear, normal breath sounds, no respiratory distress, no accessory muscle use Cardiovascular: no gallop, no murmur, + irregularly irregular Abdomen/GI: normal bowel sounds, non tender, soft Extremities/Musculoskelatal: no calf tenderness, + swelling (trace pitting edema of lower extremities bilat) Neurologic/Psych: alert, oriented x 3, + motor weakness, + pertinent finding ( postiive cogwelling of upper extremities) Skin: normal color, warm/dry Diagnostics Laboratory Results Results Past 24 Hours Test 01/10/17 05:00 01/10/17 05:51 01/10/17 06:30 Range/Units White Blood Count 6.43 4.8-10.8 K/uL Red Blood Count 4.82 4.2-5.4 M/uL Hemoglobin 14.3 12.0-16.0 g/dL Hematocrit 43.0 37-47 % Mean Corpuscular Volume 89.2 80-100 fL Mean Corpuscular Hemoglobin 29.7 25-34 pg Mean Corpuscular Hemoglobin Concent 33.3 32-36 g/dl Platelet Count 224 130-400 K/uL Mean Platelet Volume 10.9 7.4-10.4 fL Neutrophils (%) (Auto) 65.0 % Lymphocytes (%) (Auto) 22.7 % Monocytes (%) (Auto) 9.6 % Eosinophils (%) (Auto) 2.0 % Basophils (%) (Auto) 0.2 % Neutrophils # (Auto) 4.18 1.4-6.5 K/uL Lymphocytes # (Auto) 1.46 1.2-3.4 K/uL Monocytes # (Auto) 0.62 0.11-0.59 K/uL Eosinophils # (Auto) 0.13 0-0.5 K/uL Basophils # (Auto) 0.01 0-0.2 K/uL RDW Standard Deviation 48.9 36.4-46.3 fL RDW Coefficient of Variation 15.1 11.5-14.5 % Immature Granulocyte % (Auto) 0.5 % Immature Granulocyte # (Auto) 0.03 0.00-0.02 K/uL Sodium Level 142 136-145 mmol/L Potassium Level 4.3 3.5-5.1 mmol/L Chloride Level 106 98-107 mmol/L Carbon Dioxide Level 28 21-32 mmol/L Anion Gap 8.0 3-11 mmol/L Blood Urea Nitrogen 25 7-18 mg/dl Creatinine 1.20 0.60-1.20 mg/dl Estimated GFR () 49.4 Estimated GFR (Non- 42.7 BUN/Creatinine Ratio 20.7 10-20 Random Glucose 96 70-99 mg/dl Calcium Level 10.1 8.5-10.1 mg/dl Magnesium Level 2.1 1.8-2.4 mg/dl Total Bilirubin 0.9 0.2-1 mg/dl Direct Bilirubin 0.1 0-0.2 mg/dl Aspartate Amino Transf (AST/SGOT) 20 15-37 U/L Alanine Aminotransferase (ALT/SGPT) 9 12-78 U/L Alkaline Phosphatase 123 45-117 U/L Total Creatine Kinase 45 26-192 U/L Creatine Kinase MB 0.9 0.5-3.6 ng/ml Creatine Kinase MB Ratio 2.0 0-3.0 Total Protein 7.6 6.4-8.2 gm/dl Albumin 3.6 3.4-5.0 gm/dl Lipase 260 73-393 U/L Bedside Troponin I 0.000 0-0.045 ng/ml Prothrombin Time 20.7 9.0-12.0 SECONDS Prothromb Time International Ratio 1.9 0.9-1.1 Activated Partial Thromboplast Time 38.3 21.0-31.0 SECONDS Partial Thromboplastin Ratio 1.5 Diagnostic Radiology CHEST ONE VIEW PORTABLE CLINICAL HISTORY: CHEST PAIN dyspnea COMPARISON STUDY: 12/24/2016 FINDINGS: Developing bibasilar parenchymal infiltrates. Mid and upper lungs are considered clear. IMPRESSION: Developing bibasilar parenchymal infiltrates EKG 1. Suspect arm lead reversal, interpretation assumes no reversal Atrial fibrillation with rapid ventricular response Septal infarct , age undetermined Lateral infarct , age undetermined Abnormal ECG When compared with ECG of 24-DEC-2016 06:16, Significant changes have occurred 2. Sinus bradycardia with Premature atrial complexes Otherwise normal ECG When compared with ECG of 10-JAN-2017 05:41, (unconfirmed) Sinus rhythm has replaced Atrial fibrillation Vent. rate has decreased BY 90 BPM QRS axis Shifted right Criteria for Septal infarct are no longer Present Criteria for Lateral infarct are no longer Present ST no longer depressed in Anterolateral leads T wave inversion no longer evident in Lateral leads Impression Assessment and Plan Ms. Banks is an 81 y/o female with PMHx of Atrial Fibrillation (Nov 2015), HTN , HLD, Parkinson's, and Mild Dementia who presents to the emergency department with complaints of persistent chest pain that started at approximately 0430. In the ED, EKG significant for atrial fibrillation with RVR and evidence of T- wave inversion in leads III and V4-V6. She received Lopressor 15 mg IV which achieved rate control and rhythm conversion. Repeat EKG shows sinus bradycardia with PACs and resolution of T-wave inversion. INR 1.9. Initial troponin negative. She is afebrile without leukocytosis. No electrolyte abnormalities appreciated. CXR significant for developing bibasilar parenchymal infiltrate. She will be admitted to telemetry for rhythm monitoring and serial cardiac enzymes. Chest Pain Associated with Atrial Fibrillation with RVR: Follows with Dr. Stevens - CXR - image and report reviewed - evidence of developing bibasilar parenchymal infiltrate - questionable atelectasis -- Patient is afebrile without leukocytosis - was discharged on 12/24/2016 with a seven-day course of Levaquin she completed -- Will defer antibiotics at this time - consideration for repeat XR tomorrow - Echo (Nov 2016) - EF 65-70%; moderate LVH, Grade II diastolic dysfunction; R ventricular systolic pressure 30-40 mmHg - Incentive spirometry - Metoprolol 25 mg BID with metoprolol 5 mg IV Q5M PRN tachycardia > 120 - Coumadin 5 mg MWF and 2.5 T,Th,Sat,Sun - recently adjusted from Thursday -- INR from 1.8 to 1.9 will continue current regimen - trend INR - Serial cardiac enzymes - NSS 75 mL/hr Weakness: - Patient with chronic "weak spells" that have been evaluated by neurology and cardiology - Weak spell witness - sudden onset of progressive weakness that is largely observed with facial movements; patient reports that it affects her whole body and she normally sits down; patient quickly begins to close eyes, speech is clear but becomes more mumbled as facial movements decrease; daughter reports at times these spells will leave her with the inability to speak; daughter reports that these episodes are like clockwork and normally last for approximately 2 hours and 20 minutes -- Patient did not have her dose of Sinemet this morning - Daughter reports that the spells decreased when the long-acting Sinemet was initiated for a couple weeks - May need further dosing adjustments? Parkinsons Disease: Follows with Dr. Alan - Sinemet 2 tablets QID - will give dose now to catch up - Sinemet ER 1 tablet HS - Selegiline 5 mg BID HTN: - Lisinopril 5 mg daily - Furosemide 40 mg PRN - swelling Dementia: - Aricept 5 mg daily - Namenda 5 mg daily DVT Prophylaxis: Coumadin Code Status: FULL RESUSCITATION Disposition: - PT Evaluation - probable D/C tomorrow -- Largely confined to wheelchair Level of Care Telemetry Advanced Directives Existing Advance Directive: Yes Resuscitation Status FULL RESUSCITATION VTE Prophylaxis VTE Risk Assessment Done? Y/N: Yes Risk Level: Moderate Given or contraindicated: Warfarin (Coumadin) Reviewed: Pt Seen/Exam by Me History Pt has no further chest pain. She is about to have lunch. She still feels a bit shaky from missing her Parkinson's meds this AM, but has received them now and this is improving. No SOB. Daughter mentions that pt has been having episodic generalized weakness with facial flushing that last about 2 hours and then resolves. It does not seem to correlate with being close to the next dose of cinemet or other activities. She is wearing an event monitor on admission to help track her cardiac fxn during these episodes. Agree with HPI/ROS as noted. General Appearance: WD/WN, no apparent distress Respiratory: normal breath sounds, no respiratory distress Cardiovascular: normal peripheral pulses, regular rate, rhythm Gastrointestinal: non tender, soft Extremities: non-tender, no pedal edema Neurologic/Psychiatric: alert, oriented x 3 Skin Characteristics: normal color, warm/dry Assessment/Plan Agree with plan as outlined above. Afib with RVR, hx of same with new dx and admission for same earlier this month Chest pain has resolved with rate control Trop neg x1, serials pending Pt was for outpt stress next week, possibly undergo during admission if trops remain neg given repeat occurrence. CXR: bibasilar infiltrates noted, ? atelectesis Recent PNA and finished tx, no sx Monitor off abx for now, t/c repeat CXR tomorrow Start abx if pt develops sx c/w PNA Pt with issues last admission. Daughter states she can come in any time of day/night to assist with this if she is notified
[2017-01-10] MEDS ORDERED: METOPROLOL TARTRATE 1 MG/ML VIAL IV PRN ×2 (10:00→10:15)
[2017-01-10] MEDS: SODIUM CHLORIDE 0.9% 1000ML 1,000 ML IV SCH (11:46)
[2017-01-10 12:04] LABS: CKMB/CK RATIO 6.4 (0-3.0)
[2017-01-10] MEDS ORDERED: IV FLUIDS COMPLETED PRN (13:45)
[2017-01-10] MEDS ORDERED: CARBIDOPA/LEVODOPA 25/100MG TAB PO SCH (14:30)
[2017-01-10] MEDS: CARBIDOPA/LEVODOPA 25/100MG TAB PO SCH ×2 (14:51→18:02)
[2017-01-10] MEDS ORDERED: LEValbuterol HFA 15GM INHALER INH PRN (15:30)
[2017-01-10] MEDS ORDERED: WARFARIN SOD 2.5 MG TAB PO SCH (16:00)
[2017-01-10 18:02] LABS: CKMB/CK RATIO 5.4 (0-3.0)
[2017-01-10] MEDS ORDERED: ARTIFICIAL TEARS OP OINT 3.5 GM TUBE OPB SCH (21:00)
[2017-01-10] MEDS ORDERED: CARBIDOPA/LEVODOPA 50/200MG EXT REL TAB PO SCH (21:00)
[2017-01-10] MEDS: SELEGILINE HCL 5 MG CAP PO SCH (21:40)
[2017-01-10] MEDS: RANITIDINE HCL 150 MG TAB PO SCH (21:41)
[2017-01-10] MEDS: METOPROLOL TARTRATE 25 MG TAB PO SCH (22:03)
[2017-01-11] MEDS: SODIUM CHLORIDE 0.9% 1000ML 1,000 ML IV SCH (01:13)
[2017-01-11 03:25] VITALS: BP 129/74; PULSE 66; TEMP 36.6; O2SAT 98
[2017-01-11] MEDS: CARBIDOPA/LEVODOPA 25/100MG TAB PO SCH ×3 (05:46→13:03)
[2017-01-11 06:00] LABS: HEMATOCRIT 39.1 % (37-47); MEAN CELL VOLUME 89.9 fL (80-100); MEAN CORPUSCULAR HEMOGLOBIN 29.4 pg (25-34); MEAN CORPUSCULAR HGB CONC 32.7 g/dl (32-36); MEAN PLATELET VOLUME 10.1 fL (7.4-10.4); PLATELET COUNT 211 K/uL (130-400); RED BLOOD COUNT 4.35 M/uL (4.2-5.4); WHITE BLOOD COUNT 6.07 K/uL (4.8-10.8)
[2017-01-11 06:10] LABS: INR 1.9 (0.9-1.1)
[2017-01-11 06:35] LABS: BUN/CREATININE RATIO 21.2 (10-20); CALCIUM 8.7 mg/dl (8.5-10.1); CREATININE 0.97 mg/dl (0.60-1.20); MAGNESIUM 2.2 mg/dl (1.8-2.4); POTASSIUM 4.2 mmol/L (3.5-5.1)
[2017-01-11 06:38] LABS: CHOLESTEROL/HDL RATIO 3.9
[2017-01-11] MEDS: SELEGILINE HCL 5 MG CAP PO SCH (07:57)
[2017-01-11] MEDS: RANITIDINE HCL 150 MG TAB PO SCH (07:59)
[2017-01-11 08:00] VITALS: O2SAT 98
[2017-01-11 08:18] VITALS: BP 141/85; PULSE 67; TEMP 36.6; O2SAT 96
[2017-01-11] MEDS ORDERED: DONEPEZIL HCL 5 MG TAB PO SCH (09:00)
[2017-01-11] MEDS ORDERED: CEROVITE ADV FORMULA TAB PO SCH (09:00)
[2017-01-11] MEDS ORDERED: MEMANTINE 5 MG TAB PO SCH (09:00)
[2017-01-11] MEDS ORDERED: LISINOPRIL 5 MG TAB PO SCH (09:00)
[2017-01-11] MEDS: METOPROLOL TARTRATE 25 MG TAB PO SCH (09:10)
--- NOTE | 2017-01-11 11:36 | Discharge Instructions ---
Discharge Instructions Date of Service Jan 11, 2017. Admission Reason for Admission: Atrial Fibrillation With Rvr;Left Sided Chest Pain Discharge Discharge Diagnosis / Problem: Atrial fibrillation with RVR Discharge Goals Goal(s): Decrease discomfort, Improve function, Increase independence Activity Recommendations Activity Limitations: resume your previous activity . Instructions / Follow-Up Instructions / Follow-Up Stress test on Thursday as previously scheduled Dr. Mason in 1-2 weeks Neurology as scheduled prior Current Hospital Diet Patient's current hospital diet: AHA Diet (Heart Healthy) Discharge Diet Recommended Diet: Regular Diet Pending Studies Studies pending at discharge: no Laboratory Results Lipid Panel Test 01/11/17 05:37 Range/Units Triglycerides Level 130 0-150 mg/dl Cholesterol Level 146 0-200 mg/dl HDL Cholesterol 37 mg/dl Cholesterol/HDL Ratio 3.9 LDL Cholesterol, Calculated 83 mg/dl Medical Emergencies . Who to Call and When: Medical Emergencies: If at any time you feel your situation is an emergency, please call 911 immediately. . Non-Emergent Contact Non-Emergency issues call your: Primary Care Provider . . "Provider Documentation" section prepared by Kia Vincent. VTE Core Measure Inpt VTE Proph given/why not?: Warfarin (Coumadin)
--- NOTE | 2017-01-11 11:44 | Discharge Summary ---
Discharge Summary Date of Service Jan 11, 2017. Discharge Summary Admission Date: Jan 10, 2017 at 09:30 Discharge Date: Jan 11, 2017 Discharge Disposition: Home Principal Diagnosis: Afib with RVR Problems/Secondary Diagnoses: Afib on coumadin HTN Parkinson's with dementia HypoNa GERD Hyperlipidemia Medication Reconciliation Continued Medications: Artificial Tear Ointment (Eye Lubricant) 1 Oin Oin 1 APPLN OPB HS Biotin (Biotin) 5,000 Mcg Cap 5000 MCG PO DAILY Calcium Carbonate-Vitamin D W/ (Caltrate 600 Plus) 1 Tab Tab 600 MG PO DAILY, TAB Carbidopa-Levodopa (Sinemet Cr 50-200 mg) 1 Tab Tab 1 TAB PO HS Carbidopa/Levodopa (Sinemet 25MG/100MG) Tab 2 TABS PO QID, TAB Cholecalciferol (Vitamin D3) 1,000 Unit Tab 1000 UNITS PO DAILY, TAB Clobetasol Propionate (Temovate) 0.05 % Oin 1 APPLN TOP 2XWK PRN for UNDECIDED for 30 Days, #15 GM 1 Refill Donepezil Hydrochloride (Donepezil Hcl) 5 Mg Tab 5 MG PO DAILY, 3 Refills Furosemide (Lasix) 40 Mg Tab 40 MG PO DAILY PRN for SWELLING, TAB Levalbuterol Tartrate (Levalbuterol Tartrate Hfa) 45 Mcg/Act Aer 1 PUFF INH PRN Lisinopril (Prinivil) 5 Mg Tab 5 MG PO DAILY, TAB Memantine (Namenda) 5 Mg Tab 5 MG PO DAILY, TAB Metoprolol Tartrate (Lopressor) (Lopressor) 25 Mg Tab 25 MG PO BID, TAB Ocuvite Preservision (Ocuvite Preservision) 1 Tab Tab 1 TAB PO DAILY, TAB Ranitidine (Zantac) 150 Mg Tab 150 MG PO BID, TAB Selegiline HCl (Selegiline HCl) 5 Mg Tab 5 MG PO BID Warfarin Sod (Jantoven) 2.5 Mg Tab 5 MG PO 3XWK, TAB THURSDAY/THURSDAY/THURSDAY Warfarin Sod (Jantoven) 2.5 Mg Tab 2.5 MG PO 4XWK, TAB THURSDAY/THURSDAY/THURSDAY/THURSDAY Discharge Exam Pt is doing well today. She has not had recurrence of chest pain since admission. No SOB. Tolerating PO well. Her Parkinson's sx are at baseline with resuming her home medications. Pt denies fever, abd pain, n/v/c/d, LE pain or swelling. Per nursing, she has remained in sinus rhythm with low normal rate ROS as noted above, otherwise neg. Physical Exam: General Appearance: WD/WN, no apparent distress Respiratory/Chest: normal breath sounds, no respiratory distress Cardiovascular: regular rate, rhythm, no edema Abdomen / GI: non tender, soft Extremities: no calf tenderness, no pedal edema Neurologic/Psychiatric: alert, normal mood/affect Skin: normal color, warm/dry Hospital Course Ms. Banks is an 81 y/o female with PMHx of Atrial Fibrillation (Nov 2015), HTN , HLD, Parkinson's, and Mild Dementia who presents to the emergency department with complaints of persistent chest pain that started at approximately 0430. In the ED, EKG significant for atrial fibrillation with RVR and evidence of T- wave inversion in leads III and V4-V6. She received Lopressor 15 mg IV which achieved rate control and rhythm conversion. Repeat EKG shows sinus bradycardia with PACs and resolution of T-wave inversion. INR 1.9. Initial troponin negative. She is afebrile without leukocytosis. No electrolyte abnormalities appreciated. CXR significant for developing bibasilar parenchymal infiltrate vs atelectasis. She will be admitted to telemetry for rhythm monitoring and serial cardiac enzymes. Chest Pain Associated with Atrial Fibrillation with RVR: Follows with Dr. Stevens - CXR - image and report reviewed - evidence of developing bibasilar parenchymal infiltrate - questionable atelectasis -- Patient is afebrile without leukocytosis - was discharged on 12/24/2016 with a seven-day course of Levaquin which she completed -- Will defer antibiotics at this time given no sx c/w PNA and recent abx for same - Echo (Nov 2016) - EF 65-70%; moderate LVH, Grade II diastolic dysfunction; R ventricular systolic pressure 30-40 mmHg - Metoprolol 25 mg BID resumed and no further issues Will not adjust medications given low normal HR at this dosing and no further afib/RVR - Coumadin 5 mg MWF and 2.5 T,Th,Sat,Sun - recently adjusted from Thursday -- INR from 1.8 to 1.9 will continue current regimen - trend INR - Serial cardiac enzymes with very slight increase to 0.21 and now decreased-- likely demand ischemia from above Discussed possibility of having dobutamine stress today vs Thursday, however this is not possible on a Thursday. Pt has been asx from this standpoint and it is reasonable to have done as scheduled prior on Thursday. Weakness: - Patient with chronic "weak spells" that have been evaluated by neurology and cardiology - Weak spell witness - sudden onset of progressive weakness that is largely observed with facial movements; patient reports that it affects her whole body and she normally sits down; patient quickly begins to close eyes, speech is clear but becomes more mumbled as facial movements decrease; daughter reports at times these spells will leave her with the inability to speak; normally last for approximately 2 hours and 20 minutes Does not seem to correlate with Parkinson's medication timing per daughter Pt has an event monitor from [facility] to track possibility of cardiac involvement Parkinsons Disease: Follows with Dr. Alan - Sinemet 2 tablets QID - will give dose now to catch up - Sinemet ER 1 tablet HS - Selegiline 5 mg BID HTN: - Lisinopril 5 mg daily - Furosemide 40 mg PRN - swelling Dementia: - Aricept 5 mg daily - Namenda 5 mg daily Total Time Spent: Greater than 30 minutes This includes examination of the patient, discharge planning, medication reconciliation, and communication with other providers. Discharge Instructions Please refer to the electronic Patient Visit Report (Discharge Instructions) for additional information. Follow-Up Stress test on Thursday as previously scheduled Dr. Mason in 1-2 weeks Neurology as scheduled prior Additional Copies To Edwige Mason,
[2017-01-11 12:06] VITALS: BP 141/85; PULSE 67; TEMP 36.6; O2SAT 96
[2017-01-12] MEDS ORDERED: WARFARIN SOD 5 MG TAB PO SCH (16:00)
[2017-01-31] MEDS ORDERED: QSTP PO (10:02)
[2017-01-31] MEDS ORDERED: VANC5CAP PO (10:02)
[2017-04-05] MEDS ORDERED: BND25 PO (15:07)
== END 2017-01-11 13:43 | disposition home or self-care (01) ==
LOC: ENRESERVTM → ENRESERVDT → EDBD 05:32 → C.EDB 05:37 → C.2E 09:30
PROVIDERS: ADMIT Family Medicine; ATTEND Family Medicine
DX: I48.91 Unspecified atrial fibrillation (principal); R53.1 Weakness; I10 Essential (primary) hypertension; G31.83 Neurocognitive disorder with Lewy bodies; F02.80 Dementia in other diseases classified elsewhere, unspecified severity, without behavioral disturbance, psychotic disturbance, mood disturbance, and anxiety; E87.1 Hypo-osmolality and hyponatremia; K21.9 Gastro-esophageal reflux disease without esophagitis; E78.5 Hyperlipidemia, unspecified; Z79.01 Long term (current) use of anticoagulants

== ENCOUNTER 2017-01-29 05:42 | Inpatient (IN) | payer OTHER ==
[2017-01-29] VITALS (7 sets, daily range): BP systolic 123–188; BP diastolic 74–83; PULSE 58–74; TEMP 35.8–36.8; O2SAT 97–100; Ht 160 cm; Wt 97.7 kg
[~2017-01-29] VITALS: Ht 160 cm; Wt 97.7 kg
[~2017-01-29 05:42] MED LIST changes: +CLOB1OIN2 TOP; -CMD5 PO; -LPR25 PO; +METO25TA56 PO; -MULT-188 PO; +MULT-190 PO; +NMN5 PO; +WARF2.5T8 PO; +ZNTT/150 PO
[2017-01-29] MEDS ORDERED: SODIUM CHLORIDE 0.9% 500ML 500 ML IV STA (05:52)
[2017-01-29] MEDS ORDERED: SODIUM CHLORIDE 0.9% 1000ML 1,000 ML IV STA (05:52)
[2017-01-29] MEDS ORDERED: OPTIRAY 320 IV PRN (06:15)
[2017-01-29] MEDS ORDERED: LEVA45AE INH (06:22)
[2017-01-29] MEDS ORDERED: WARF3TAB6 PO (06:23)
[2017-01-29] MEDS ORDERED: AMIO200T4 PO (06:26)
[2017-01-29 06:28] LABS: ISTAT HEMOGLOBIN 12.9 g/dl (12.0-16.0); ISTAT IONIZED CALCIUM 1.28 mmol/l (1.12-1.32)
--- NOTE | 2017-01-29 06:29 | EMERGENCY ROOM VISIT NOTE ---
ED Visit Note First contact with patient: 05:50 I have personally evaluated and examined this patient. I agree with assessment and plan of Birdie Viera PA-C.
[2017-01-29] MEDS ORDERED: LOPE-5 PO (06:36)
[2017-01-29 06:48] LABS: BUN/CREATININE RATIO 16.2 (10-20); CALCIUM 9.1 mg/dl (8.5-10.1); MAGNESIUM 1.9 mg/dl (1.8-2.4)
--- NOTE | 2017-01-29 06:48 | DIAGNOSTIC IMAGING REPORT ---
CHEST ONE VIEW PORTABLE CLINICAL HISTORY: weak mental status change COMPARISON STUDY: 01/10/2017 FINDINGS: The bones soft tissues and hemidiaphragms are normal. The cardiomediastinal silhouette is normal. The lungs are clear. The pulmonary vasculature is normal. IMPRESSION: Negative chest. Electronically signed by: Aquilino Galvez M.D. 01/29/2017 6:46 AM Dictated Date/Time: 01/29/2017 6:46 AM
[2017-01-29 06:49] LABS: INR 2.9 (0.9-1.1); PARTIAL THROMBOPLASTIN RATIO 1.8
[2017-01-29] MEDS ORDERED: CARB10TA6 PO (06:50)
[2017-01-29 06:54] LABS: URINE APPEARANCE CLEAR (CLEAR); URINE BILIRUBIN NEG (NEG); URINE COLOR YELLOW; URINE NITRITE NEG (NEG); URINE PH 5.5 (4.5-7.5); URINE SPECIFIC GRAVITY 1.007 (1.000-1.030); UROBILINOGEN NEG (NEG); ZZUR CULT IF INDIC CLEAN CATCH NO
[2017-01-29 06:59] LABS: CKMB/CK RATIO 4.9 (0-3.0); THYROID STIMULATING HORMONE 2.56 uIu/ml (0.300-4.500)
[2017-01-29 07:11] LABS: BASO % 0.3 %; BASO ABS # 0.02 K/uL (0-0.2); COMPLETE YES; EOS % 3.9 %; HEMATOCRIT 37.8 % (37-47); IG% 0.3 %; LYMPH % 12.8 %; LYMPH ABS # 0.82 K/uL (1.2-3.4); MEAN CELL VOLUME 87.9 fL (80-100); MEAN CORPUSCULAR HEMOGLOBIN 28.8 pg (25-34); MEAN CORPUSCULAR HGB CONC 32.8 g/dl (32-36); MEAN PLATELET VOLUME 10.6 fL (7.4-10.4); MONO % 11.4 %; NEUT % 71.3 %; PLATELET COUNT 174 K/uL (130-400)
--- NOTE | 2017-01-29 07:11 | DIAGNOSTIC IMAGING REPORT ---
HEAD CT NONCONTRAST CT DOSE: 2062.12 mGy.cm HISTORY: Mental status change weakness TECHNIQUE: Multiaxial CT images of the head were performed without the use of intravenous contrast. Comparison: 11/06/2016 Findings: The paranasal sinuses and mastoid air cells are clear. Chronic small vessel change throughout. Subtle hypodensity medial occipital lobes bilaterally transaxial image 14. Given the symmetry, this is felt to be secondary to chronic small vessel change. No evidence for acute intracranial hemorrhage. Ventricular system is midline. Impression: Age-related change. No acute process. Electronically signed by: Aquilino Galvez M.D. 01/29/2017 7:09 AM Dictated Date/Time: 01/29/2017 7:06 AM
[2017-01-29 07:12] LABS: MANUAL MICROSCOPIC REQUIRED? NO; REVIEW REQ? NO
--- NOTE | 2017-01-29 07:14 | DIAGNOSTIC IMAGING REPORT ---
ABDOMEN AND PELVIS CT WITH IV CONTRAST CT DOSE: HISTORY: lower abd pain, diarrhea TECHNIQUE: Multiaxial CT images of the abdomen and pelvis were performed following the use of intravenous contrast. COMPARISON STUDY: Abdominal ultrasound 11/29/2015. FINDINGS: Mild bibasilar subsegmental atelectasis. Mitral annulus calcifications. The liver, spleen, adrenal glands, and pancreas are unremarkable. Suspect cholelithiasis. No gallbladder wall thickening. Bilateral cortical renal scarring. No hydronephrosis. No retroperitoneal lymphadenopathy. Punctate focus of gas within the bladder lumen. Multiple colonic diverticula. Normal appendix. Mild thickening of the distal descending colon and sigmoid colon this is consistent with a nonspecific colitis. The mesenteric vessels appear patent. IMPRESSION: 1. Mild thickening of the distal descending colon and sigmoid colon consistent with a nonspecific colitis. This could be due to an infectious, inflammatory, or less likely ischemic process. 2. Colonic diverticulosis. 3. Normal appendix. 4. Suspect cholelithiasis. 5. Punctate focus of gas within the bladder lumen. This could be due to recent catheterization. Electronically signed by: Mat Hall M.D. 01/29/2017 7:12 AM Dictated Date/Time: 01/29/2017 7:06 AM
--- NOTE | 2017-01-29 07:30 | EMERGENCY ROOM VISIT NOTE ---
History First contact with patient: 05:50 Chief Complaint: DIARRHEA Stated Complaint: DIARRHEA FOR DAYS Nursing Triage Summary: patient brought in from home by EMS. hx of parkinsons. family told EMS patient has had a few days of diarrhea and increased weakness. History of Present Illness The patient is a 81 year old female who presents to the Emergency Room with complaints of diarrhea for the past few days with progressive weakness he was too weak to get up today and felt off. Patient was on antibiotics in October for UTI. She is unable to recall the exact medication. No history of C. difficile. She has Parkinson's and Len vann is on Coumadin. She follows at Dr. Alan. Patient denies black or blood in her diarrhea. Patient denies chest pain, dyspnea, fever, chills, cough, congestion. Patient states she feels extremely weak and cannot ambulate. Review of Systems See HPI for pertinent positives & negatives. A total of 10 systems reviewed and were otherwise negative. Past Medical/Surgical History Medical Problems: (1) Hyperlipidemia (2) Hyperosmolality and hypernatremia (3) Hypertension (4) Parkinsons Family History No pertinent family history Social History Smoking Status: Never Smoker Drug Use: none Marital Status: Housing Status: lives with significant other Occupation Status: retired Current/Historical Medications Scheduled Amiodarone Hcl (Cordarone), 200 MG PO DAILY Artificial Tear Ointment (Eye Lubricant), 1 APPLN OPB HS Biotin (Biotin), 5,000 MCG PO DAILY Calcium Carbonate-Vitamin D W/ (Caltrate 600 Plus), 600 MG PO DAILY Carbidopa-Levodopa (Sinemet Cr 50-200 mg), 1 TAB PO HS Carbidopa/Levodopa (Sinemet 25MG/100MG), 2 TABS PO QID Cholecalciferol (Vitamin D3), 1,000 UNITS PO DAILY Donepezil Hydrochloride (Donepezil Hcl), 5 MG PO DAILY Lisinopril (Prinivil), 5 MG PO DAILY Memantine (Namenda), 5 MG PO BID Ocuvite Preservision (Ocuvite Preservision), 1 TAB PO DAILY Ranitidine (Zantac), 150 MG PO BID Selegiline HCl (Selegiline HCl), 5 MG PO BID Warfarin Sod (Jantoven), 3 MG PO DAILY Scheduled PRN Carbidopa-Levodopa (Carbidopa/Levodopa Odt), 25-250 MG PO TID PRN for PARKINSON' S CONTROL Clobetasol Propionate (Temovate), 1 APPLN TOP 2XWK PRN for UNDECIDED Furosemide (Lasix), 40 MG PO DAILY PRN for SWELLING Levalbuterol Tartrate (Levalbuterol Tartrate Hfa), 2 PUFFS INH DAILY PRN for SOB /Wheezing Loperamide Hcl (Imodium A-D), 2 MG PO QID PRN for Diarrhea Allergies Coded Allergies: Succinylcholine (Unverified Allergy, Severe, 12/22/16) Physical Exam Vital Signs Date Time Temp Pulse Resp B/P Pulse Ox O2 Delivery O2 Flow Rate FiO2 01/29/17 07:10 67 147/76 100 01/29/17 06:19 Room Air 01/29/17 06:01 64 01/29/17 05:54 36.4 65 18 168/76 98 Room Air Physical Exam VITALS: Vitals are noted on the nurse's note and reviewed by myself. Vital signs stable. GENERAL: Elderly female, dehydrated appearing slow to answer questions SKIN: The skin was without rashes, erythema, edema, or bruising. Capillary reflex less than 2 seconds. HEAD: Normocephalic atraumatic. EARS: External auditory canals clear, tympanic membranes pearly stephens without erythema or effusion bilaterally. EYES: Pupils equal round and reactive to light and accommodation. Conjunctivae without injection, sclerae without icterus. Extraocular movements intact. NOSE: Patent, turbinates without inflammation or discharge. No sinus tenderness. MOUTH: Mucous membranes mildly dry. Pharynx without erythema or exudate. Uvula midline. Airway patent. Tongue does not deviate. NECK: Supple without nuchal rigidity. No lymphadenopathy. No thyromegaly. Cervical spine is nontender. No JVD. HEART: Regular rate and rhythm LUNGS: Clear to auscultation bilaterally without wheezes, rales or rhonchi. No dullness to percussion. No retractions or accessory muscle use. ABDOMEN: Positive bowel sounds x 4. Normal tympanic percussion. Soft, tender to palpation lower abdomen, no CVA tenderness, without masses or organomegaly. Roach sign negative. No guarding or rebound tenderness. MUSCULOSKELETAL: No muscle atrophy, erythema, noted. NEURO: Patient was alert and oriented to person place and time. Normal sensation to light and sharp touch. No focal neurological deficits. Medical Decision & Procedures Laboratory Results 01/29/17 06:10 Red Blood Count 4.30, Mean Corpuscular Volume 87.9, Mean Corpuscular Hemoglobin 28.8, Mean Corpuscular Hemoglobin Concent 32.8, Mean Platelet Volume 10.6, Neutrophils (%) (Auto) 71.3, Lymphocytes (%) (Auto) 12.8, Monocytes (%) (Auto) 11.4, Eosinophils (%) (Auto) 3.9, Basophils (%) (Auto) 0.3, Neutrophils # (Auto ) 4.56, Lymphocytes # (Auto) 0.82, Monocytes # (Auto) 0.73, Eosinophils # (Auto ) 0.25, Basophils # (Auto) 0.02 01/29/17 06:10 Test 01/29/17 06:10 01/29/17 06:11 01/29/17 06:15 01/29/17 06:40 White Blood Count 6.40 K/uL (4.8-10.8) Red Blood Count 4.30 M/uL (4.2-5.4) Hemoglobin 12.4 g/dL (12.0-16.0) Hematocrit 37.8 % (37-47) Mean Corpuscular Volume 87.9 fL (80-100) Mean Corpuscular Hemoglobin 28.8 pg (25-34) Mean Corpuscular Hemoglobin Concent 32.8 g/dl (32-36) Platelet Count 174 K/uL (130-400) Mean Platelet Volume 10.6 fL (7.4-10.4) Neutrophils (%) (Auto) 71.3 % Lymphocytes (%) (Auto) 12.8 % Monocytes (%) (Auto) 11.4 % Eosinophils (%) (Auto) 3.9 % Basophils (%) (Auto) 0.3 % Neutrophils # (Auto) 4.56 K/uL (1.4-6.5) Lymphocytes # (Auto) 0.82 K/uL (1.2-3.4) Monocytes # (Auto) 0.73 K/uL (0.11-0.59) Eosinophils # (Auto) 0.25 K/uL (0-0.5) Basophils # (Auto) 0.02 K/uL (0-0.2) RDW Standard Deviation 51.8 fL (36.4-46.3) RDW Coefficient of Variation 16.0 % (11.5-14.5) Immature Granulocyte % (Auto) 0.3 % Immature Granulocyte # (Auto) 0.02 K/uL (0.00-0.02) Prothrombin Time 33.0 SECONDS (9.0-12.0) Prothromb Time International Ratio 2.9 (0.9-1.1) Activated Partial Thromboplast Time 47.6 SECONDS (21.0-31.0) Partial Thromboplastin Ratio 1.8 Est Creatinine Clear Calc Drug Dose 49.9 ml/min Estimated GFR () 61.6 Estimated GFR (Non- 53.2 BUN/Creatinine Ratio 16.2 (10-20) Calcium Level 9.1 mg/dl (8.5-10.1) Magnesium Level 1.9 mg/dl (1.8-2.4) Total Bilirubin 0.8 mg/dl (0.2-1) Aspartate Amino Transf (AST/SGOT) 13 U/L (15-37) Alanine Aminotransferase (ALT/SGPT) 7 U/L (12-78) Alkaline Phosphatase 116 U/L (45-117) Total Creatine Kinase 43 U/L (26-192) Creatine Kinase MB 2.1 ng/ml (0.5-3.6) Creatine Kinase MB Ratio 4.9 (0-3.0) Total Protein 6.4 gm/dl (6.4-8.2) Albumin 3.2 gm/dl (3.4-5.0) Globulin 3.2 gm/dl (2.5-4.0) Albumin/Globulin Ratio 1.0 (0.9-2) Thyroid Stimulating Hormone (TSH) 2.560 uIu/ml (0.300-4.500) Bedside Lactic Acid Venous 0.42 mmol/L (0.90-1.70) Bedside Troponin I 0.000 ng/ml (0-0.045) Bedside Hemoglobin 12.9 g/dl (12.0-16.0) Bedside Hematocrit 38 % (37-47) Bedside Sodium 143 mEq/L (135-144) Bedside Potassium 4.1 mEq/L (3.3-5.0) Bedside Chloride 104 mEq/L (101-112) Bedside Total CO2 25 mEq/l (24-31) Anion Gap 19.0 mmol/L (16-25) Bedside Blood Urea Nitrogen 17 mg/dl (7-18) Bedside Creatinine 1.0 mg/dl (0.6-1.3) Bedside Glucose (other) 91 mg/dl (70-99) Bedside Ionized Calcium (Yessenia) 1.28 mmol/l (1.12-1.32) Urine Color YELLOW Urine Appearance CLEAR (CLEAR) Urine pH 5.5 (4.5-7.5) Urine Specific [place] 1.007 (1.000-1.030) Urine Protein NEG (NEG) Urine Glucose (UA) NEG (NEG) Urine Ketones NEG (NEG) Urine Occult Blood NEG (NEG) Urine Nitrite NEG (NEG) Urine Bilirubin NEG (NEG) Urine Urobilinogen NEG (NEG) Urine Leukocyte Esterase NEG (NEG) Medications Administered Medications (Trade) Dose Ordered Sig/Geronimo Route Start Time Stop Time Status Last Admin Dose Admin Sodium Chloride 500 ml @ 999 mls/hr Q31M STAT IV 01/29/17 05:52 01/29/17 06:22 DC 01/29/17 05:52 999 MLS/HR Sodium Chloride (Nss 1000ml) 1,000 ml @ 75 mls/hr [id number] STAT IV 01/29/17 05:52 01/29/17 19:11 01/29/17 05:52 75 MLS/HR ED Course Prior records/ancillary studies reviewed and summarized above. Nursing notes reviewed. Additional history obtained from family The patient's history was concerning for lower abdominal pain, weakness, diarrhea and difficulty walking. Differential diagnosis: Etiologies such as metabolic, C. difficile, intra-abdominal, infection, hypo/ hyperglycemia, electrolyte abnormalities, cardiac sources, intracerebral event, toxicologic, neurologic, as well as others were entertained. Physical examination: As above. ER treatment provided: IV Lock IV fluids On reassessment the patient felt better. Diagnostics interpretation by me: ECG: Normal sinus, normal intervals, no acute ST-T wave changes, rate 65. Impression normal sinus rhythm interpreted by myself The labs revealed no leukocytosis Stable H&H. Negative lactic acid. Negative troponin Imaging studies: HEAD CT NONCONTRAST CT DOSE: 2062.12 mGy.cm HISTORY: Mental status change weakness TECHNIQUE: Multiaxial CT images of the head were performed without the use of intravenous contrast. Comparison: 11/06/2016 Findings: The paranasal sinuses and mastoid air cells are clear. Chronic small vessel change throughout. Subtle hypodensity medial occipital lobes bilaterally transaxial image 14. Given the symmetry, this is felt to be secondary to chronic small vessel change. No evidence for acute intracranial hemorrhage. Ventricular system is midline. Impression: Age-related change. No acute process. Electronically signed by: Aquilino Galvez M.D. Chest x-ray with no acute consolidation, pneumothorax or free air per my interpretation, improved from prior chest x-ray that shows her resolved pneumonia ABDOMEN AND PELVIS CT WITH IV CONTRAST CT DOSE: HISTORY: lower abd pain, diarrhea TECHNIQUE: Multiaxial CT images of the abdomen and pelvis were performed following the use of intravenous contrast. COMPARISON STUDY: Abdominal ultrasound 11/29/2015. FINDINGS: Mild bibasilar subsegmental atelectasis. Mitral annulus calcifications. The liver, spleen, adrenal glands, and pancreas are unremarkable. Suspect cholelithiasis. No gallbladder wall thickening. Bilateral cortical renal scarring. No hydronephrosis. No retroperitoneal lymphadenopathy. Punctate focus of gas within the bladder lumen. Multiple colonic diverticula. Normal appendix. Mild thickening of the distal descending colon and sigmoid colon this is consistent with a nonspecific colitis. The mesenteric vessels appear patent. IMPRESSION: 1. Mild thickening of the distal descending colon and sigmoid colon consistent with a nonspecific colitis. This could be due to an infectious, inflammatory, or less likely ischemic process. 2. Colonic diverticulosis. 3. Normal appendix. 4. Suspect cholelithiasis. 5. Punctate focus of gas within the bladder lumen. This could be due to recent catheterization. Electronically signed by: Mat Hall M.D. Consultation: A consultation was placed with the hospitalist, Dr Bobby. The case was discussed and diagnostics were reviewed. The patient was evaluated in the ER for further treatment. Exam and history seem consistent with weakness, diarrhea, possible C. difficile. Patient was extremely dehydrated. She is unable to ambulate. She will be evaluated by medicine for possible admission. By the evaluation outlined above emergent etiologies such as electrolyte abnormalities, cardiac sources, intracerebral event, toxologic, neurologic, abnormalities blood glucose , metabolic, as well as others were deemed relatively unlikely. The pt informed about the findings as listed above. All questions were answered and pleased with the treatment. Case reviewed with my attending. Medical Decision As above Impression Primary Impression: Dehydration Additional Impressions: Diarrhea Weakness Colitis Departure Information Dispostion Being Evaluated By Hospitalist Condition FAIR Referrals Edwige Mason DO (PCP) Patient Instructions My [facility] Problem Qualifiers Additional Impressions: Diarrhea Diarrhea type: unspecified type Qualified Codes: R19.7 - Diarrhea, unspecified
[2017-01-29] MEDS ORDERED: HEPARIN SOD 5000 UNIT/0.5 ML CARP SQ SCH (07:45)
[2017-01-29] MEDS ORDERED: ACETAMINOPHEN 325 MG TAB PO PRN (07:45)
[2017-01-29] MEDS ORDERED: ONDANSETRON INJ 2 MG/ML 2 ML VIAL IV PRN (07:45)
[2017-01-29] MEDS ORDERED: LEValbuterol HFA 15GM INHALER INH PRN (07:45)
[2017-01-29] MEDS ORDERED: IV FLUIDS COMPLETED PRN (09:30)
[2017-01-29] MEDS: SODIUM CHLORIDE 0.9% 1000ML 1,000 ML IV SCH ×2 (10:32→18:40)
[2017-01-29] MEDS: CARBIDOPA/LEVODOPA 25/100MG TAB PO SCH ×3 (10:33→17:45)
[2017-01-29] MEDS: AMIODARONE 200 MG TAB PO SCH (10:33)
[2017-01-29] MEDS: CHOLECALCIFEROL 1000 INTER.UNIT TAB PO SCH (10:33)
[2017-01-29] MEDS: MEMANTINE 5 MG TAB PO SCH ×2 (10:33→21:19)
[2017-01-29] MEDS: DONEPEZIL HCL 5 MG TAB PO SCH (10:33)
[2017-01-29] MEDS: RANITIDINE HCL 150 MG TAB PO SCH ×2 (10:34→21:18)
--- NOTE | 2017-01-29 16:45 | History and Physical ---
History & Physical Date & Time of Service: Jan 29, 2017 at 16:29 Chief Complaint: Dehydration, Diarrhea Primary Care Physician: Edwige Mason DO History of Present Illness Source: patient, hospital records Patient presents with 4 days of diarrhea, getting worse. She has not noticed any blood and does not have any abdominal pain. She has been able to eat, minimal nausea and no vomiting. She admits to some tenesmus, borderline stool incontinence at times. She did have antibiotics for UTI in the past few months. No history of C diff. She presented because she felt so weak that she could not walk which is not normal for her. No fever or chills that she noticed. She has been making urine. CT abdomen and pelvis in the ED showed a colitis. her renal function and electrolytes were normal. WBC was normal. Admitted to medical floor. Later in the day her C diff returned positive. Past Medical/Surgical History Paroxysmal atrial fibrillation Parkinson's HTN Dementia Family History No pertinent family history Social History Smoking Status: Never Smoker Drug Use: none Marital Status: Housing status: lives with family Occupational Status: retired Multi-Drug Resistant Organisms History of MDRO: No Allergies Coded Allergies: Succinylcholine (Unverified Allergy, Severe, 12/22/16) Home Medications Scheduled Amiodarone Hcl (Cordarone), 200 MG PO DAILY Artificial Tear Ointment (Eye Lubricant), 1 APPLN OPB HS Biotin (Biotin), 5,000 MCG PO DAILY Calcium Carbonate-Vitamin D W/ (Caltrate 600 Plus), 600 MG PO DAILY Carbidopa-Levodopa (Sinemet Cr 50-200 mg), 1 TAB PO HS Carbidopa/Levodopa (Sinemet 25MG/100MG), 2 TABS PO QID Cholecalciferol (Vitamin D3), 1,000 UNITS PO DAILY Donepezil Hydrochloride (Donepezil Hcl), 5 MG PO DAILY Lisinopril (Prinivil), 5 MG PO DAILY Memantine (Namenda), 5 MG PO BID Ocuvite Preservision (Ocuvite Preservision), 1 TAB PO DAILY Ranitidine (Zantac), 150 MG PO BID Selegiline HCl (Selegiline HCl), 5 MG PO BID Warfarin Sod (Jantoven), 3 MG PO DAILY Scheduled PRN Carbidopa-Levodopa (Carbidopa/Levodopa Odt), 25-250 MG PO TID PRN for PARKINSON' S CONTROL Clobetasol Propionate (Temovate), 1 APPLN TOP 2XWK PRN for UNDECIDED Furosemide (Lasix), 40 MG PO DAILY PRN for SWELLING Levalbuterol Tartrate (Levalbuterol Tartrate Hfa), 2 PUFFS INH DAILY PRN for SOB /Wheezing Loperamide Hcl (Imodium A-D), 2 MG PO QID PRN for Diarrhea Review of Systems Constitutional: + fatigue, + weakness, No chills, No fever, No problem reported , No sweats, No weight loss Eyes: No diplopia, No discharge, No eye pain, No problem reported, No redness, No worsening of vision ENT: No dental problems, No hearing loss, No nasal symptoms, No problem reported, No sore throat, No tinnitus, No trouble swallowing, No unusual epistaxis Respiratory: No cough, No dyspnea at rest, No dyspnea on exertion, No hemoptysis, No problem reported, No shortness of breath, No sputum, No wheezing Cardiovascular: No PND, No chest pain, No claudication, No edema, No orthopnea , No palpitations, No problem reported Abdomen: + diarrhea, + nausea, No GI bleeding, No constipation, No pain, No vomiting Musculoskeletal: No calf pain, No joint pain, No muscle pain, No problem reported, No swelling Genitourinary - Female: No dysuria, No urinary frequency, No urinary incontinence, No urinary retention, No urinary urgency Neurologic: + weakness, No balance problems, No memory loss, No numbness/ tingling, No paralysis, No problem reported, No vertigo Psychiatric: No anhedonism, No anxiety, No depression symptoms, No insomnia, No problem reported, No substance abuse Endocrine: No excessive thirst, No excessive urination, No fatigue, No problem reported Hematologic / Lymphatic: No abnormal bleeding/bruising, No clotting problems, No night sweats, No problem reported, No swollen lymph nodes Integumentary: No bleeding, No color change, No itch, No new/changing skin lesions, No problem reported, No rash Allergic / Immunologic: No environmental allergies, No food allergies, No frequent infections, No hives, No pet sensitivities, No poor healing, No problem reported, No prolonged convalescence, No seasonal allergies Physical Exam Vital Signs Date Time Temp Pulse Resp B/P Pulse Ox O2 Delivery O2 Flow Rate FiO2 01/29/17 14:53 35.8 64 16 144/78 97 01/29/17 09:59 36.5 58 20 144/83 98 Room Air 01/29/17 08:54 57 130/66 99 01/29/17 08:00 100 Room Air 01/29/17 07:10 67 147/76 100 01/29/17 06:19 Room Air 01/29/17 06:01 64 01/29/17 05:54 36.4 65 18 168/76 98 Room Air General Appearance: WD/WN, no apparent distress Head: normocephalic, atraumatic Eyes: normal inspection, EOMI, sclerae normal ENT: normal ENT inspection, hearing grossly normal, pharynx normal Neck: supple, no adenopathy, no JVD, trachea midline Respiratory/Chest: chest non-tender, lungs clear, normal breath sounds, no respiratory distress, no accessory muscle use Cardiovascular: regular rate, rhythm, no edema, no gallop, no JVD, no murmur, normal peripheral pulses Abdomen/GI: normal bowel sounds, non tender, soft, no organomegaly Back: normal inspection, no CVA tenderness, no muscle spasm, normal range of motion Extremities/Musculoskelatal: normal inspection, no calf tenderness, normal capillary refill, no pedal edema, normal range of motion Neurologic/Psych: cyber forensics analyst II-XII nml as tested, no motor/sensory deficits, alert, normal mood/affect, normal reflexes, oriented x 3 Skin: normal color, warm/dry, no rash Lymphatic: no adenopathy Diagnostics Laboratory Results Results Past 24 Hours Test 01/29/17 06:10 01/29/17 06:11 01/29/17 06:15 01/29/17 06:40 Range/Units White Blood Count 6.40 4.8-10.8 K/uL Red Blood Count 4.30 4.2-5.4 M/uL Hemoglobin 12.4 12.0-16.0 g/dL Hematocrit 37.8 37-47 % Mean Corpuscular Volume 87.9 80-100 fL Mean Corpuscular Hemoglobin 28.8 25-34 pg Mean Corpuscular Hemoglobin Concent 32.8 32-36 g/dl Platelet Count 174 130-400 K/uL Mean Platelet Volume 10.6 7.4-10.4 fL Neutrophils (%) (Auto) 71.3 % Lymphocytes (%) (Auto) 12.8 % Monocytes (%) (Auto) 11.4 % Eosinophils (%) (Auto) 3.9 % Basophils (%) (Auto) 0.3 % Neutrophils # (Auto) 4.56 1.4-6.5 K/uL Lymphocytes # (Auto) 0.82 1.2-3.4 K/uL Monocytes # (Auto) 0.73 0.11-0.59 K/uL Eosinophils # (Auto) 0.25 0-0.5 K/uL Basophils # (Auto) 0.02 0-0.2 K/uL RDW Standard Deviation 51.8 36.4-46.3 fL RDW Coefficient of Variation 16.0 11.5-14.5 % Immature Granulocyte % (Auto) 0.3 % Immature Granulocyte # (Auto) 0.02 0.00-0.02 K/uL Prothrombin Time 33.0 9.0-12.0 SECONDS Prothromb Time International Ratio 2.9 0.9-1.1 Activated Partial Thromboplast Time 47.6 21.0-31.0 SECONDS Partial Thromboplastin Ratio 1.8 Sodium Level 142 136-145 mmol/L Potassium Level 4.0 3.5-5.1 mmol/L Chloride Level 109 98-107 mmol/L Carbon Dioxide Level 28 21-32 mmol/L Anion Gap 5.0 19.0 16-25 mmol/L Blood Urea Nitrogen 16 7-18 mg/dl Creatinine 1.00 0.60-1.20 mg/dl Est Creatinine Clear Calc Drug Dose 49.9 ml/min Estimated GFR () 61.6 Estimated GFR (Non- 53.2 BUN/Creatinine Ratio 16.2 10-20 Random Glucose 88 70-99 mg/dl Calcium Level 9.1 8.5-10.1 mg/dl Magnesium Level 1.9 1.8-2.4 mg/dl Total Bilirubin 0.8 0.2-1 mg/dl Aspartate Amino Transf (AST/SGOT) 13 15-37 U/L Alanine Aminotransferase (ALT/SGPT) 7 12-78 U/L Alkaline Phosphatase 116 45-117 U/L Total Creatine Kinase 43 26-192 U/L Creatine Kinase MB 2.1 0.5-3.6 ng/ml Creatine Kinase MB Ratio 4.9 0-3.0 Total Protein 6.4 6.4-8.2 gm/dl Albumin 3.2 3.4-5.0 gm/dl Globulin 3.2 2.5-4.0 gm/dl Albumin/Globulin Ratio 1.0 0.9-2 Thyroid Stimulating Hormone (TSH) 2.560 0.300-4.500 uIu/ml Bedside Lactic Acid Venous 0.42 0.90-1.70 mmol/L Bedside Troponin I 0.000 0-0.045 ng/ml Bedside Hemoglobin 12.9 12.0-16.0 g/dl Bedside Hematocrit 38 37-47 % Bedside Sodium 143 135-144 mEq/L Bedside Potassium 4.1 3.3-5.0 mEq/L Bedside Chloride 104 101-112 mEq/L Bedside Total CO2 25 24-31 mEq/l Bedside Blood Urea Nitrogen 17 7-18 mg/dl Bedside Creatinine 1.0 0.6-1.3 mg/dl Bedside Glucose (other) 91 70-99 mg/dl Bedside Ionized Calcium (Yessenia) 1.28 1.12-1.32 mmol/l Urine Color YELLOW Urine Appearance CLEAR CLEAR Urine pH 5.5 4.5-7.5 Urine Specific [place] 1.007 1.000-1.030 Urine Protein NEG NEG Urine Glucose (UA) NEG NEG Urine Ketones NEG NEG Urine Occult Blood NEG NEG Urine Nitrite NEG NEG Urine Bilirubin NEG NEG Urine Urobilinogen NEG NEG Urine Leukocyte Esterase NEG NEG Microbiology Results 01/29/17 Shiga Toxin Test, Received Pending 01/29/17 Stool Culture, Received Pending 01/29/17 C.difficile Toxin B Gene (PCR) - Final, Complete Positive for C. difficile toxin B gene Diagnostic Radiology ABDOMEN AND PELVIS CT WITH IV CONTRAST CT DOSE: HISTORY: lower abd pain, diarrhea TECHNIQUE: Multiaxial CT images of the abdomen and pelvis were performed following the use of intravenous contrast. COMPARISON STUDY: Abdominal ultrasound 11/29/2015. FINDINGS: Mild bibasilar subsegmental atelectasis. Mitral annulus calcifications. The liver, spleen, adrenal glands, and pancreas are unremarkable. Suspect cholelithiasis. No gallbladder wall thickening. Bilateral cortical renal scarring. No hydronephrosis. No retroperitoneal lymphadenopathy. Punctate focus of gas within the bladder lumen. Multiple colonic diverticula. Normal appendix. Mild thickening of the distal descending colon and sigmoid colon this is consistent with a nonspecific colitis. The mesenteric vessels appear patent. IMPRESSION: 1. Mild thickening of the distal descending colon and sigmoid colon consistent with a nonspecific colitis. This could be due to an infectious, inflammatory, or less likely ischemic process. 2. Colonic diverticulosis. 3. Normal appendix. 4. Suspect cholelithiasis. 5. Punctate focus of gas within the bladder lumen. This could be due to recent catheterization. Normal EKG Impression Assessment and Plan 81 yo female with diarrhea, acute, + C diff - C diff colitis: Vancomycin PO, Questran, IV fluids vitals stable, electrolytes stable repeat labs int he AM - Atrial fibrillation: paroxysmal, continue rate control hold Coumadin today, repeat INR tomorrow - HTN: hold Lisinopril due to dehydration, check labs in AM BP stable - Parkinson's: continue Sinemet, Namenda - DVT proph: INR 2.9 Level of Care Med/Surg Advanced Directives Existing Living Will: Yes Existing Power of Financial Compliance Examiner: Yes Resuscitation Status FULL RESUSCITATION VTE Prophylaxis VTE Risk Assessment Done? Y/N: Yes Risk Level: Low Given or contraindicated: Warfarin (Coumadin)
[2017-01-29] MEDS: RASPBERRY SYRUP 5 ML UDP PO SCH ×2 (17:43→21:20)
[2017-01-29] MEDS: VANCOMYCIN HCL 125 MG/2.5ML SOLN PO SCH ×2 (17:44→21:49)
[2017-01-29] MEDS ORDERED: NURSING VERBAL MED ORDER ONE (18:15)
[2017-01-29] MEDS ORDERED: HydrALAZINE HCL 20 MG/ML VIAL IV. ONE (19:00)
[2017-01-29] MEDS ORDERED: HydrALAZINE HCL 20 MG/ML VIAL IV. PRN (19:00)
[2017-01-29] MEDS: CARBIDOPA/LEVODOPA 50/200MG EXT REL TAB PO SCH (21:20)
[2017-01-29] MEDS ORDERED: CARBIDOPA/LEVODOPA 25-250 1 EA TAB PO PRN (21:45)
[2017-01-29] MEDS: CHOLESTYRAMINE LIGHT 4 GM PKT PO SCH (21:53)
[2017-01-30 04:13] VITALS: BP 161/72; PULSE 61; TEMP 36.6; O2SAT 93
[2017-01-30] MEDS: SODIUM CHLORIDE 0.9% 1000ML 1,000 ML IV SCH ×2 (04:23→13:45)
[2017-01-30] MEDS: CARBIDOPA/LEVODOPA 25/100MG TAB PO SCH ×4 (06:18→17:43)
[2017-01-30 06:59] LABS: BASO % 0.1 %; BASO ABS # 0.01 K/uL (0-0.2); COMPLETE YES; EOS % 5.4 %; HEMATOCRIT 39.6 % (37-47); IG% 0.3 %; LYMPH % 15.6 %; LYMPH ABS # 1.13 K/uL (1.2-3.4); MEAN CORPUSCULAR HEMOGLOBIN 29.2 pg (25-34); MEAN CORPUSCULAR HGB CONC 32.8 g/dl (32-36); MEAN PLATELET VOLUME 10.1 fL (7.4-10.4); MONO % 7.7 %; NEUT % 70.9 %; PLATELET COUNT 186 K/uL (130-400); RED BLOOD COUNT 4.45 M/uL (4.2-5.4); WHITE BLOOD COUNT 7.23 K/uL (4.8-10.8)
[2017-01-30 07:36] LABS: BUN/CREATININE RATIO 12.5 (10-20); CALCIUM 9.1 mg/dl (8.5-10.1); CREATININE 0.91 mg/dl (0.60-1.20); POTASSIUM 4.1 mmol/L (3.5-5.1)
[2017-01-30 07:54] VITALS: BP 134/68; PULSE 59; TEMP 36.8; O2SAT 95
[2017-01-30] MEDS: RASPBERRY SYRUP 5 ML UDP PO SCH ×4 (07:56→21:17)
[2017-01-30] MEDS: CHOLECALCIFEROL 1000 INTER.UNIT TAB PO SCH (07:56)
[2017-01-30] MEDS: MEMANTINE 5 MG TAB PO SCH ×2 (07:57→21:19)
[2017-01-30] MEDS: DONEPEZIL HCL 5 MG TAB PO SCH (07:57)
[2017-01-30] MEDS: SELEGILINE HCL 5 MG CAP PO SCH ×2 (07:57→21:19)
[2017-01-30] MEDS: CHOLESTYRAMINE LIGHT 4 GM PKT PO SCH ×3 (07:57→22:00)
[2017-01-30] MEDS: VANCOMYCIN HCL 125 MG/2.5ML SOLN PO SCH ×4 (08:04→21:17)
[2017-01-30 08:34] LABS: INR 2.2 (0.9-1.1); PROTHROMBIN TIME (PATIENT) 24.7 SECONDS (9.0-12.0)
[2017-01-30] MEDS: RANITIDINE HCL 150 MG TAB PO SCH ×2 (09:29→21:21)
[2017-01-30] MEDS: AMIODARONE 200 MG TAB PO SCH (09:29)
--- NOTE | 2017-01-30 10:20 | Progress Note ---
Subjective Date of Service: Jan 30, 2017. Subjective Pt evaluation today including: conversation w/ patient, physical exam, lab review, review of inpatient medication list Pain: no pain PO Intake: adequate Voiding: no voiding problems updated patient on C diff results, started on Vancomycin c/o having another "episode" or "spell" this morning where she cannot move for an hour these have been happening at home, chronic issue discussed with RN, unclear what actually happens, she just lays there awake and cannot talk Problem List Medical Problems: (1) Atrial fibrillation with RVR Status: Acute (2) Atrial fibrillation with RVR Status: Acute (3) Colitis Status: Acute (4) Dehydration Status: Acute (5) Diarrhea Status: Acute (6) Hypernatremia Status: Acute (7) Left sided chest pain Status: Acute (8) UTI (urinary tract infection) Status: Acute (9) Weakness Status: Acute (10) Weakness Status: Acute (11) Weakness Status: Acute Review of Systems Constitutional: + fatigue, + weakness Abdomen: + diarrhea (improving, less since admitted) Neurologic: + balance problems, + problem reported ("spells") All Other Systems: Reviewed and Negative Medications Current Inpatient Medications Medications (Trade) Dose Ordered Sig/Geronimo Route Start Time Stop Time Status Last Admin Dose Admin Ioversol (Optiray 320) 100 ml UD PRN IV 01/29/17 06:15 02/02/17 06:14 Acetaminophen (Tylenol Tab) 650 mg Q4H PRN PO 01/29/17 07:45 02/28/17 07:44 Ondansetron HCl 4 mg 4 mg Q6H PRN IV 01/29/17 07:45 02/28/17 07:44 Sodium Chloride (Nss 1000ml) 1,000 ml @ 100 mls/hr Q10H IV 01/29/17 07:45 02/28/17 07:44 01/30/17 04:23 100 MLS/HR Amiodarone HCl (Cordarone Tab) 200 mg DAILY PO 01/29/17 09:00 02/28/17 08:59 01/30/17 09:29 200 MG Carbidopa/Levodopa (Sinemet Cr 50/ 200MG Tab) 1 tab HS PO 01/29/17 21:00 02/28/17 20:59 01/29/17 21:20 1 TAB Cholecalciferol (Vitamin D Tab) 1,000 inter.unit DAILY PO 01/29/17 09:00 02/28/17 08:59 01/30/17 07:56 1,000 INTER.UNIT Donepezil HCl (Aricept Tab) 5 mg DAILY PO 01/29/17 09:00 02/28/17 08:59 01/30/17 07:57 5 MG Levalbuterol (Xopenex Hfa Inhaler) 2 puffs DAILY PRN INH 01/29/17 07:45 02/28/17 07:44 Memantine (Namenda Tab) 5 mg BID PO 01/29/17 09:00 02/28/17 08:59 01/30/17 07:57 5 MG Ranitidine HCl (zANTac TAB) 150 mg BID PO 01/29/17 09:00 02/28/17 08:59 01/30/17 09:29 150 MG Miscellaneous (Iv Fluids Completed) 1 ea PRN PRN N/A 01/29/17 09:30 01/29/18 09:29 Vancomycin HCl (Vancomycin Oral Soln) 125 mg QID PO 01/29/17 17:00 02/08/17 16:59 01/30/17 08:04 125 MG Cholestyramine Resin (Questran Powder Light) 4 gm BID@10,22 PO 01/29/17 22:00 02/28/17 21:59 Hydralazine HCl (HydrALAZINE INJ) 10 mg Q6H PRN IV. 01/29/17 19:00 02/28/17 18:59 Carbidopa/Levodopa (Sinemet 25/ 100MG Tab) 2 tab QID@0600,1000,1200,1800 PO 01/30/17 06:00 03/01/17 05:59 01/30/17 07:56 2 TAB Carbidopa/Levodopa (Sinemet 25/ 250MG Tab) 1 tab TID PRN PO 01/29/17 21:45 02/28/17 21:44 Selegiline HCl (Eldepryl Cap) 5 mg BID PO 01/30/17 09:00 03/01/17 08:59 01/30/17 07:57 5 MG Raspberry (Raspberry Syrup 5ml Cup) 5 ml QID PO 01/30/17 13:00 02/12/17 16:59 Objective Vital Signs Date Time Temp Pulse Resp B/P Pulse Ox O2 Delivery O2 Flow Rate FiO2 01/30/17 08:00 Room Air 01/30/17 07:54 36.8 59 16 134/68 95 Room Air 01/30/17 04:13 36.6 61 16 161/72 93 Room Air 01/30/17 00:00 Room Air 01/29/17 23:31 36.8 70 16 138/74 98 Room Air 01/29/17 21:16 74 123/75 01/29/17 19:44 70 188/76 01/29/17 16:00 97 Room Air 01/29/17 14:53 35.8 64 16 144/78 97 Physical Exam General Appearance: WD/WN, no apparent distress Eyes: normal inspection, EOMI, sclerae normal ENT: normal ENT inspection, hearing grossly normal, pharynx normal Neck: supple, no adenopathy, no JVD, trachea midline Respiratory/Chest: chest non-tender, lungs clear, normal breath sounds, no respiratory distress, no accessory muscle use Cardiovascular: regular rate, rhythm, no edema, no gallop, no JVD, no murmur Abdomen: normal bowel sounds, non tender, soft, no organomegaly Extremities: normal range of motion, non-tender, normal inspection, no pedal edema, no calf tenderness Neurologic/Psychiatric: pin inserter II-XII nml as tested, alert, normal mood/affect, oriented x 3, + motor weakness Skin: normal color, warm/dry, no rash Lymphatic: no adenopathy Laboratory Results Last 24 Hours Test 01/30/17 06:30 01/30/17 08:18 White Blood Count 7.23 K/uL Red Blood Count 4.45 M/uL Hemoglobin 13.0 g/dL Hematocrit 39.6 % Mean Corpuscular Volume 89.0 fL Mean Corpuscular Hemoglobin 29.2 pg Mean Corpuscular Hemoglobin Concent 32.8 g/dl Platelet Count 186 K/uL Mean Platelet Volume 10.1 fL Neutrophils (%) (Auto) 70.9 % Lymphocytes (%) (Auto) 15.6 % Monocytes (%) (Auto) 7.7 % Eosinophils (%) (Auto) 5.4 % Basophils (%) (Auto) 0.1 % Neutrophils # (Auto) 5.12 K/uL Lymphocytes # (Auto) 1.13 K/uL Monocytes # (Auto) 0.56 K/uL Eosinophils # (Auto) 0.39 K/uL Basophils # (Auto) 0.01 K/uL RDW Standard Deviation 52.8 fL RDW Coefficient of Variation 16.1 % Immature Granulocyte % (Auto) 0.3 % Immature Granulocyte # (Auto) 0.02 K/uL Sodium Level 145 mmol/L Potassium Level 4.1 mmol/L Chloride Level 112 mmol/L Carbon Dioxide Level 27 mmol/L Anion Gap 6.0 mmol/L Blood Urea Nitrogen 11 mg/dl Creatinine 0.91 mg/dl Est Creatinine Clear Calc Drug Dose 54.9 ml/min Estimated GFR () 69.1 Estimated GFR (Non- 59.6 BUN/Creatinine Ratio 12.5 Random Glucose 82 mg/dl Calcium Level 9.1 mg/dl Magnesium Level 2.0 mg/dl Total Bilirubin 1.1 mg/dl Direct Bilirubin 0.2 mg/dl Aspartate Amino Transf (AST/SGOT) 13 U/L Alanine Aminotransferase (ALT/SGPT) 7 U/L Alkaline Phosphatase 115 U/L Total Protein 6.5 gm/dl Albumin 3.1 gm/dl Prothrombin Time 24.7 SECONDS Prothromb Time International Ratio 2.2 Assessment and Plan 81 yo female with diarrhea, acute, + C diff - C diff colitis: Vancomycin PO, Questran, IV fluids can stop today, eating and drinking well vitals stable, electrolytes stable will need to treat with Vancomycin for 14 days minimum this is mild case, abdomen soft and non tender, normal WBC - Atrial fibrillation: paroxysmal, continue Amiodarone to keep in NSR resume Coumadin today, INR 2.2, repeat in the AM - HTN: can resume Lisinopril today since Cr is stable, BP is stable - Parkinson's: continue Sinemet, Namenda, Segeline - Spells of weakness: unclear etiology, she talks through them, they always last an hour perhaps a result of Parkinson's medications will discuss with family further to see if she has seen neurology recently patient could not really give me details - DVT proph: INR 2.2
[2017-01-30 15:49] VITALS: BP 152/85; PULSE 67; TEMP 36.4; O2SAT 99
[2017-01-30] MEDS ORDERED: WARFARIN SOD 3 MG TAB PO SCH (16:00)
[2017-01-30] MEDS ORDERED: SELEGILINE HCL 5 MG PO SCH (21:00)
[2017-01-30] MEDS: CARBIDOPA/LEVODOPA 50/200MG EXT REL TAB PO SCH (21:17)
[2017-01-31] MEDS: CARBIDOPA/LEVODOPA 25/100MG TAB PO SCH ×2 (05:50→10:44)
[2017-01-31 07:58] VITALS: BP 187/92; PULSE 69; TEMP 36.5; O2SAT 96
[2017-01-31] MEDS: SELEGILINE HCL 5 MG CAP PO SCH (08:34)
[2017-01-31] MEDS: MEMANTINE 5 MG TAB PO SCH (08:34)
[2017-01-31] MEDS: CHOLECALCIFEROL 1000 INTER.UNIT TAB PO SCH (08:34)
[2017-01-31] MEDS: RANITIDINE HCL 150 MG TAB PO SCH (08:35)
[2017-01-31] MEDS: DONEPEZIL HCL 5 MG TAB PO SCH (08:35)
[2017-01-31] MEDS: AMIODARONE 200 MG TAB PO SCH (08:36)
[2017-01-31] MEDS: RASPBERRY SYRUP 5 ML UDP PO SCH (08:37)
[2017-01-31] MEDS: VANCOMYCIN HCL 125 MG/2.5ML SOLN PO SCH (08:41)
[2017-01-31] MEDS ORDERED: CEROVITE ADV FORMULA TAB PO SCH (09:00)
[2017-01-31] MEDS ORDERED: LISINOPRIL 5 MG TAB PO SCH (09:00)
[2017-01-31] MEDS: CHOLESTYRAMINE LIGHT 4 GM PKT PO SCH (10:00)
[2017-01-31] MEDS ORDERED: VANC5CAP PO (10:02)
[2017-01-31] MEDS ORDERED: QSTP PO (10:02)
--- NOTE | 2017-01-31 10:06 | Discharge Instructions ---
Discharge Instructions Date of Service Jan 31, 2017. Admission Reason for Admission: C difficile colitis, diarrhea Discharge Discharge Diagnosis / Problem: C difficile colitis, dehydration, weakness Discharge Goals Goal(s): Improve function, Improve disease control Activity Recommendations Activity Limitations: resume your previous activity Lifting Limitations: none Exercise/Sports Limitations: as tolerated Shower/Bathe: no limitations . Instructions / Follow-Up Instructions / Follow-Up Medications: - VANCOMYCIN: take 1 capsule four times a day for 12 more days, do not stop prior to the end of the prescription this is to treat the C difficile colitis - QUESTRAN: only use as needed if you have loose stools, your diarrhea has been resolved here in the hospital and I suspect that you won't have any further diarrhea C diff colitis, diarrhea: due to recent antibiotic use, treat with Vancomycin for 14 day total course please follow up closely with Dr. Mason for repeat C diff testing to make sure it is eradicated after two weeks FOLLOW UP - Dr. Mason next week towards the end of the week, call to make appointment Current Hospital Diet Patient's current hospital diet: Regular Diet Discharge Diet Recommended Diet: Regular Diet Pending Studies Studies pending at discharge: no Laboratory Results Lipid Panel Test 01/11/17 05:37 Range/Units Triglycerides Level 130 0-150 mg/dl Cholesterol Level 146 0-200 mg/dl HDL Cholesterol 37 mg/dl Cholesterol/HDL Ratio 3.9 LDL Cholesterol, Calculated 83 mg/dl Medical Emergencies . Who to Call and When: Medical Emergencies: If at any time you feel your situation is an emergency, please call 911 immediately. . Non-Emergent Contact Non-Emergency issues call your: Primary Care Provider Call Non-Emergent contact if: you have any medication questions diarrhea returns and you are concerned . . "Provider Documentation" section prepared by Wali Hugo. VTE Core Measure Inpt VTE Proph given/why not?: Warfarin (Coumadin) [place] Drug Monitoring Program Search Results: no issues identified
[2017-01-31 10:20] VITALS: BP 187/92; PULSE 69; TEMP 36.5; O2SAT 96
--- NOTE | 2017-01-31 13:43 | Discharge Summary ---
Discharge Summary Date of Service Jan 31, 2017. Discharge Summary Admission Date: Jan 30, 2017 at 10:08 Discharge Date: Jan 31, 2017 Discharge Disposition: Home Principal Diagnosis: C diff colitis Problems/Secondary Diagnoses: Dehydration and Weakness Parkinson disease paroxysmal atrial fibrillation Procedures: none Consultations: none Medication Reconciliation New Medications: Vancomycin Hcl (Vancomycin) 125 Mg Cap 125 MG PO QID for 12 Days, #48 CAP 0 Refills Cholestyramine (Cholestyramine Light) 4 Gm Pack 4 GM PO BID@10,22 PRN for Diarrhea MDD twice a day, #1 BTL 0 Refills Continued Medications: Amiodarone Hcl (Cordarone) 200 Mg Tab 200 MG PO DAILY, TAB Artificial Tear Ointment (Eye Lubricant) 1 Oin Oin 1 APPLN OPB HS Biotin (Biotin) 5,000 Mcg Cap 5000 MCG PO DAILY Calcium Carbonate-Vitamin D W/ (Caltrate 600 Plus) 1 Tab Tab 600 MG PO DAILY, TAB Carbidopa-Levodopa (Sinemet Cr 50-200 mg) 1 Tab Tab 1 TAB PO HS Carbidopa-Levodopa (Carbidopa/Levodopa Odt) 1 Tab Tab 25-250 MG PO TID PRN for PARKINSON'S CONTROL Carbidopa/Levodopa (Sinemet 25MG/100MG) Tab 2 TABS PO QID, TAB GIVE AT 0600, 1000, 1200, AND 1800. Cholecalciferol (Vitamin D3) 1,000 Unit Tab 1000 UNITS PO DAILY, TAB Clobetasol Propionate (Temovate) 0.05 % Oin 1 APPLN TOP 2XWK PRN for UNDECIDED for 30 Days, #15 GM 1 Refill Donepezil Hydrochloride (Donepezil Hcl) 5 Mg Tab 5 MG PO DAILY, 3 Refills Furosemide (Lasix) 40 Mg Tab 40 MG PO DAILY PRN for SWELLING, TAB Levalbuterol Tartrate (Levalbuterol Tartrate Hfa) 45 Mcg/Act Aer 2 PUFFS INH DAILY PRN for SOB/Wheezing Lisinopril (Prinivil) 5 Mg Tab 5 MG PO DAILY, TAB Loperamide Hcl (Imodium A-D) 2 Mg Tab 2 MG PO QID PRN for Diarrhea Memantine (Namenda) 5 Mg Tab 5 MG PO BID, TAB Ocuvite Preservision (Ocuvite Preservision) 1 Tab Tab 1 TAB PO DAILY, TAB Ranitidine (Zantac) 150 Mg Tab 150 MG PO BID, TAB Selegiline HCl (Selegiline HCl) 5 Mg Tab 5 MG PO BID Warfarin Sod (Jantoven) 3 Mg Tab 3 MG PO DAILY, TAB Discharge Exam Patient feeling well, no diarrhea x 2 days, no abdominal pain, eating well. did well with therapy, walked 200 feet twice, approved to return home. Review of Systems: Constitutional: + weakness (but better), No chills, No fatigue, No fever, No problem reported, No sweats, No weight loss Eyes: No diplopia, No discharge, No eye pain, No problem reported, No redness, No worsening of vision ENT: No dental problems, No hearing loss, No nasal symptoms, No problem reported, No sore throat, No tinnitus, No trouble swallowing, No unusual epistaxis Respiratory: No cough, No dyspnea at rest, No dyspnea on exertion, No hemoptysis, No problem reported, No shortness of breath, No sputum, No wheezing Cardiovascular: No PND, No chest pain, No claudication, No edema, No orthopnea, No palpitations, No problem reported Abdomen: No GI bleeding, No constipation, No diarrhea, No nausea, No pain, No problem reported, No vomiting Musculoskeletal: + joint pain, No calf pain, No muscle pain, No swelling Genitourinary - Female: No dysuria, No hematuria, No urinary frequency, No urinary incontinence, No urinary retention, No urinary urgency Neurologic: + balance problems, + problem reported (tremors, Parkinsonian), + weakness, No memory loss, No numbness/tingling, No paralysis, No vertigo Psychiatric: No anhedonism, No anxiety, No depression symptoms, No insomnia , No problem reported, No substance abuse Endocrine: No excessive thirst, No excessive urination, No fatigue, No problem reported Hematologic / Lymphatic: No abnormal bleeding/bruising, No clotting problems , No night sweats, No problem reported, No swollen lymph nodes Integumentary: No bleeding, No color change, No itch, No new/changing skin lesions, No problem reported, No rash Physical Exam: General Appearance: WD/WN, no apparent distress Eyes: normal inspection, EOMI, sclerae normal ENT: normal ENT inspection, hearing grossly normal, pharynx normal Neck: supple, no adenopathy, no JVD, trachea midline Respiratory/Chest: chest non-tender, lungs clear, normal breath sounds, no respiratory distress, no accessory muscle use Cardiovascular: regular rate, rhythm, no edema, no gallop, no JVD, no murmur , normal peripheral pulses Abdomen / GI: normal bowel sounds, non tender, soft, no organomegaly Extremities: normal inspection, no calf tenderness, normal capillary refill , no pedal edema, normal range of motion, pelvis stable Neurologic/Psychiatric: pulper tender II-XII nml as tested, alert, normal mood/affect , normal reflexes, oriented x 3, + motor weakness, + pertinent finding (mild tremors bilaterally, Parkinsonian) Skin: normal color, warm/dry, no rash Hospital Course 81 yo female with diarrhea, acute, + C diff - C diff colitis: Vancomycin PO, Questran as needed for diarrhea eating and drinking well vitals stable, electrolytes stable this is mild case, abdomen soft and non tender, normal WBC no diarrhea for 2 days will prescribe 12 more days of Vancomycin 125mg QID and can use Questran only if she has diarrhea follow up with Dr. Mason in a week, consider confirming C diff eradicated after the two week course - Atrial fibrillation: paroxysmal, continue Amiodarone to keep in NSR continue Coumadin daily - HTN: continue Lisinopril - Parkinson's: continue Sinemet, Namenda, Segeline - Spells of weakness: unclear etiology, she talks through them, they always last an hour daughter reports dull work up, Dr. Alan prescribed a quick acting Sinemet to try to help just started a few days ago, too early to tell if it will work - DVT proph: Coumadin Total Time Spent: Greater than 30 minutes This includes examination of the patient, discharge planning, medication reconciliation, and communication with other providers. Discharge Instructions Please refer to the electronic Patient Visit Report (Discharge Instructions) for additional information. Follow-Up Dr. Mason in a week Additional Copies To Edwige Mason,
[2017-08-21] MEDS ORDERED: GABA-113 PO (16:22)
[2017-08-21] MEDS ORDERED: RIVA1.5T PO (16:22)
[2017-08-23] MEDS ORDERED: MRLP17X PO (11:23)
[2017-08-26] MEDS ORDERED: ARC5 PO (22:22)
[2017-08-26] MEDS ORDERED: FERR325T5 PO (22:22)
[2017-08-26] MEDS ORDERED: ACET-749 PO (22:22)
[2017-08-26] MEDS ORDERED: BIOT50006 PO (22:22)
[2017-08-26] MEDS ORDERED: LISI-729 PO (22:22)
[2017-08-26] MEDS ORDERED: DOCU100C31 PO (22:22)
[2017-08-26] MEDS ORDERED: HYDR-5688 PO (22:22)
[2017-08-26] MEDS ORDERED: FRS/40 PO (22:22)
[2017-08-26] MEDS ORDERED: MELATAB2 PO (22:22)
[2017-08-26] MEDS ORDERED: CALC-388 PO (22:22)
[2017-09-02] MEDS ORDERED: PSYL48.59 PO (13:34)
[2017-09-02] MEDS ORDERED: GABA-112 PO (13:34)
[2017-09-02] MEDS ORDERED: POLY335019 PO (13:34)
== END 2017-01-31 11:25 | disposition home health service (06) | DRG 373 ==
LOC: ENRESERVDT → ENRESERVTM → EDBD 05:42 → C.EDB 05:45 → C.MED 07:39 → UNDOADMOB 07:39 → EDBEDREQ 08:04 → C.MED 01-30 07:39 → INTOOBSV 01-30 10:08 → OBSVTOIN 01-30 10:08
PROVIDERS: ADMIT Internal Medicine; ATTEND Internal Medicine
DX: A04.7 Enterocolitis due to Clostridium difficile (principal); G20 Parkinson's disease; E86.0 Dehydration; I48.0 Paroxysmal atrial fibrillation; I10 Essential (primary) hypertension; F03.90 Unspecified dementia, unspecified severity, without behavioral disturbance, psychotic disturbance, mood disturbance, and anxiety; R53.1 Weakness; Z79.01 Long term (current) use of anticoagulants; Z79.899 Other long term (current) drug therapy

== ENCOUNTER → 2017-02-13 | Outpatient (CLI) | payer OTHER ==
[~2017-02-13] MED LIST changes: +ACET-749 PO; +AMINOPHYLLINE 25 MG/ML 20ML VIAL IV ONE; +AMIO200T4 PO; +ARC10 PO; +ARC5 PO; +BIOT50006 PO; +CALC-388 PO; +CARB10TA6 PO; +CEPH500C PO; +CLON0.5T3 PO; +DIPH25CA5 PO; +DOCU100C31 PO; +FERR1TAB23 PO; +FERR325T5 PO; +GABA-112 PO; +GABA-113 PO; +GABA1CAP4 PO; +HYDR-5688 PO; +LISI-729 PO; +LOPE-5 PO; +MELA1TAB5 PO; +MELATAB2 PO; -METO25TA56 PO; +MRLP17X PO; +POLY335019 PO; +PSYL48.59 PO; +QSTP PO; +REGADENOSON 0.4 MG/5 ML SYR ONE; +RIVA1.5T PO; +SENNTAB23 PO; +VANC5CAP PO; +WARF3TAB6 PO; +XRL20 PO
--- NOTE | 2017-02-14 01:47 | MYOCARDIAL PERFUSION SCAN ---
TIME: 1903 ORDERING PHYSICIAN: Dr. Satya Garcia. PCP: Dr. Evelin Mason. PROCEDURES: 1. Myocardial perfusion study performed in multiple views/images. 2. Lexiscan pharmacologic stress ECG. INDICATIONS: Chest pain. CONSENT: Informed written consent was obtained. PROCEDURAL DETAILS: For the stress portion of the study, Lexiscan 0.4 mg was intravenously administered over 10-15 seconds followed by saline flush. This was followed by 32 mCi of technetium-99m Cardiolite intravenously at 1338 p.m. on 02/13/2017. Imaging of the heart was performed in multiple projections 30 minutes following the injection. For the rest portion of the study 10.5 mCi of technetium-99m Cardiolite was injected intravenously at 11:30 a.m. on the same day. One hour following the injection, imaging of the heart was performed in the same projections. LEXISCAN STRESS: Resting ECG demonstrated sinus rhythm at 64 beats per minute. Septal infarct. Lexiscan ECG demonstrated 0.[address] depression in leads II, III, aVF, V4, V5 and V6. No arrhythmia. Lexiscan induced chest pain reported. She also experienced leg pain. These symptoms persisted and therefore aminophylline 50 mg IV x1 was administered with improvement in her symptoms. Maximum heart rate was 108 beats per minute representing 77% maximum predicted heart rate. Resting blood pressure was 112/61 mmHg. This was also the maximum blood pressure. FINDINGS: Rotating raw imaging demonstrated no significant motion artifact. There was no significant lung uptake. Heart size appeared normal. Myocardial perfusion demonstrated a moderate sized area of mildly reduced uptake in the inferior, inferoseptal, and inferolateral goldsmith from base to distal left ventricle. These defects were fixed in post-stress and rest imaging. There was no significant reversible defect. Wall motion was normal and ejection fraction was 79%. There was no significant transient ischemic dilation. IMPRESSION: 1. Negative myocardial perfusion study for ischemia. 2. Fixed inferior, inferoseptal, and inferolateral wall defects from base to distal left ventricle, likely diaphragmatic attenuation given normal wall motion. 3. Lexiscan induced chest discomfort. 4. Borderline abnormal Lexiscan ECG. Target heart rate not attained. There was 0.[address] depression. 5. Hyperdynamic left ventricular systolic function with an ejection fraction of 79%. 6. Normal wall motion.
== END | disposition home or self-care (01) ==
LOC: C.NUCL 10:59
PROVIDERS: ATTEND Internal Medicine Clinical Cardiac Electrophysiology
DX: R07.9 Chest pain, unspecified (principal); I10 Essential (primary) hypertension; E21.3 Hyperparathyroidism, unspecified; E55.9 Vitamin D deficiency, unspecified; I48.91 Unspecified atrial fibrillation

== ENCOUNTER → 2017-02-13 | Outpatient (CLI) | payer OTHER ==
[~2017-02-13] MED LIST changes: -AMINOPHYLLINE 25 MG/ML 20ML VIAL IV ONE; -REGADENOSON 0.4 MG/5 ML SYR ONE
[2017-02-13 12:47] LABS: INR 2.1 (0.9-1.1); PROTHROMBIN TIME (PATIENT) 22.9 SECONDS (9.0-12.0)
[2017-02-13 13:00] LABS: CALCIUM 9.5 mg/dl (8.5-10.1)
[2017-02-13 13:02] LABS: BLOOD UREA NITROGEN 25 mg/dl (7-18); BUN/CREATININE RATIO 22.8 (10-20); CARBON DIOXIDE 28 mmol/L (21-32); CHLORIDE 107 mmol/L (98-107); GLUCOSE 89 mg/dl (70-99); POTASSIUM 4.3 mmol/L (3.5-5.1); SODIUM 142 mmol/L (136-145)
== END | disposition home or self-care (01) ==
LOC: C.LAB 11:03
PROVIDERS: ATTEND Family Medicine
DX: I10 Essential (primary) hypertension (principal); E21.3 Hyperparathyroidism, unspecified; E55.9 Vitamin D deficiency, unspecified; I48.91 Unspecified atrial fibrillation

== ENCOUNTER 2017-03-05 02:49 | Emergency (ER) | payer OTHER ==
[~2017-03-05] VITALS: Ht 157.5 cm; Wt 93.7 kg
[~2017-03-05 02:49] MED LIST changes: -ACET-749 PO; -ARC10 PO; -ARC5 PO; -BIOT50006 PO; -CALC-388 PO; -CEPH500C PO; -CLON0.5T3 PO; -DIPH25CA5 PO; -DOCU100C31 PO; -FERR1TAB23 PO; -FERR325T5 PO; -GABA-112 PO; -GABA-113 PO; -GABA1CAP4 PO; -HYDR-5688 PO; -LISI-729 PO; -MELA1TAB5 PO; -MELATAB2 PO; -MRLP17X PO; -POLY335019 PO; -PSYL48.59 PO; -RIVA1.5T PO; -SENNTAB23 PO; -WARF2.5T8 PO; -XRL20 PO
[2017-03-05] MEDS ORDERED: HydrALAZINE HCL 20 MG/ML VIAL IV. STA (03:11)
[2017-03-05 03:16] LABS: BASO % 0.2 %; BASO ABS # 0.01 K/uL (0-0.2); COMPLETE YES; EOS % 1.9 %; HEMATOCRIT 42.8 % (37-47); IG% 0.5 %; LYMPH % 15.8 %; MEAN CELL VOLUME 89.9 fL (80-100); MEAN CORPUSCULAR HEMOGLOBIN 29.6 pg (25-34); MEAN CORPUSCULAR HGB CONC 32.9 g/dl (32-36); MEAN PLATELET VOLUME 11.6 fL (7.4-10.4); MONO % 7.1 %; NEUT % 74.5 %; PLATELET COUNT 202 K/uL (130-400); RED BLOOD COUNT 4.76 M/uL (4.2-5.4); WHITE BLOOD COUNT 6.33 K/uL (4.8-10.8)
[2017-03-05 03:24] LABS: ALT/SGPT 9 U/L (12-78); AST/SGOT 11 U/L (15-37); BLOOD UREA NITROGEN 20 mg/dl (7-18); BUN/CREATININE RATIO 16.9 (10-20); CALCIUM 10.2 mg/dl (8.5-10.1); CARBON DIOXIDE 31 mmol/L (21-32); CHLORIDE 105 mmol/L (98-107); GLUCOSE 84 mg/dl (70-99); MAGNESIUM 2.1 mg/dl (1.8-2.4); POTASSIUM 4.8 mmol/L (3.5-5.1); SODIUM 141 mmol/L (136-145)
[2017-03-05 03:35] LABS: ALKALINE PHOSPHATASE 137 U/L (45-117); CKMB/CK RATIO 3.4 (0-3.0)
[2017-03-05 03:38] VITALS: TEMP 36.6; Ht 157.5 cm; Wt 93.7 kg
[2017-03-05 03:38] LABS: INR 3.1 (0.9-1.1); PARTIAL THROMBOPLASTIN RATIO 1.9; PROTHROMBIN TIME (PATIENT) 35.2 SECONDS (9.0-12.0)
--- NOTE | 2017-03-05 03:40 | EMERGENCY ROOM VISIT NOTE ---
History Report prepared by Morales: Kei Wilson Under the Supervision of: Dr. Terrie Wheatley M.D. First contact with patient: 02:58 Chief Complaint: SHORTNESS OF BREATH Stated Complaint: SHORT OF BREATH History of Present Illness The patient is an 81 year old female who presents to the Emergency Room with complaints of constant shortness of breath for the past couple of nights. The patient states that she has been feeling weak. She denies any lung problems, and she states that she takes blood pressure medicine, and she has not missed any dosages today. She states that she took her blood pressure prior to arrival and it was 180/90s. She states that her blood pressure was high last time that she was in the hospital as well. Source of History: patient Onset: past couple of nights Position: other (global) Quality: other (shortness of breath) Timing: constant Associated Symptoms: + weakness Review of Systems See HPI for pertinent positives & negatives. A total of 10 systems reviewed and were otherwise negative. Past Medical & Surgical Medical Problems: (1) C. difficile colitis (2) Hyperlipidemia (3) Hyperosmolality and hypernatremia (4) Hypertension (5) Parkinsons Family History No pertinent family history Social History Smoking Status: Never Smoker Drug Use: none Marital Status: Housing Status: lives with significant other Occupation Status: retired Current/Historical Medications Scheduled Amiodarone Hcl (Cordarone), 200 MG PO DAILY Artificial Tear Ointment (Eye Lubricant), 1 APPLN OPB HS Biotin (Biotin), 5,000 MCG PO DAILY Calcium Carbonate-Vitamin D W/ (Caltrate 600 Plus), 600 MG PO DAILY Carbidopa-Levodopa (Sinemet Cr 50-200 mg), 1 TAB PO HS Carbidopa/Levodopa (Sinemet 25MG/100MG), 3 TABS PO QID Cholecalciferol (Vitamin D3), 1,000 UNITS PO DAILY Donepezil Hydrochloride (Donepezil Hcl), 5 MG PO DAILY Lisinopril (Prinivil), 5 MG PO DAILY Memantine (Namenda), 5 MG PO BID Ocuvite Preservision (Ocuvite Preservision), 1 TAB PO DAILY Ranitidine (Zantac), 150 MG PO BID Selegiline HCl (Selegiline HCl), 5 MG PO BID Warfarin Sod (Jantoven), 3 MG PO DAILY Scheduled PRN Carbidopa-Levodopa (Carbidopa/Levodopa Odt), 25-250 MG PO TID PRN for PARKINSON' S CONTROL Levalbuterol Tartrate (Levalbuterol Tartrate Hfa), 2 PUFFS INH DAILY PRN for SOB /Wheezing Allergies Coded Allergies: Succinylcholine (Unverified Allergy, Severe, 03/05/17) Physical Exam Vital Signs Date Time Temp Pulse Resp B/P Pulse Ox O2 Delivery O2 Flow Rate FiO2 03/05/17 06:09 67 15 98 03/05/17 06:04 67 15 96 03/05/17 06:00 146/71 03/05/17 05:59 68 19 98 03/05/17 05:54 69 20 99 03/05/17 05:49 68 17 97 03/05/17 05:45 145/81 03/05/17 05:44 67 14 98 03/05/17 05:41 68 03/05/17 05:39 67 16 91 03/05/17 05:34 70 15 100 03/05/17 05:30 163/74 03/05/17 05:29 72 16 100 03/05/17 05:24 73 16 97 03/05/17 05:19 74 17 03/05/17 05:14 84 15 03/05/17 05:09 75 16 03/05/17 05:04 96 14 03/05/17 05:00 140/66 03/05/17 04:59 67 15 84 03/05/17 04:54 67 18 98 03/05/17 04:49 68 14 98 03/05/17 04:45 138/58 03/05/17 04:44 68 13 99 03/05/17 04:39 68 19 97 03/05/17 04:34 68 13 98 03/05/17 04:30 130/64 03/05/17 04:29 69 22 98 03/05/17 04:24 70 14 100 03/05/17 04:19 67 19 03/05/17 04:15 133/65 03/05/17 04:14 68 14 03/05/17 04:09 68 14 03/05/17 04:04 74 18 03/05/17 04:00 132/69 03/05/17 03:59 68 16 03/05/17 03:54 68 14 03/05/17 03:49 71 14 03/05/17 03:45 138/71 03/05/17 03:44 70 17 03/05/17 03:39 68 15 03/05/17 03:38 36.6 68 18 138/71 94 Room Air 03/05/17 03:38 Room Air 03/05/17 03:34 70 17 03/05/17 03:30 157/73 03/05/17 03:29 72 16 03/05/17 03:24 75 18 97 03/05/17 03:20 172/85 03/05/17 03:19 67 18 100 03/05/17 03:14 71 18 97 03/05/17 03:10 201/103 03/05/17 03:09 77 18 03/05/17 03:08 82 03/05/17 03:04 73 16 03/05/17 02:59 71 18 99 03/05/17 02:54 211/108 Physical Exam Vital signs reviewed. General: Elderly-appearing female, in no significant distress. HEENT: No scleral icterus, PERRLA, neck supple. Atraumatic. Cardiovascular: Regular rate and rhythm, no extra sounds. Pulmonary: Clear to auscultation bilaterally, normal work of breathing. Abdomen: Obese. Soft, nontender, nondistended, positive bowel sounds. Musculoskeletal: Atraumatic, no peripheral edema. Neurologic: Patient awake alert and oriented x 3, full strength in all 4 extremities. Cranial nerves 2 through 12 grossly intact. Skin: Warm, dry, no rash Medical Decision & Procedures ER Provider Diagnostic Interpretation: X-ray results as stated below per interpretation by me. 1 View Chest: Mild congestion. No focal lung consolidation. Questionable air tracking along the distal aspect of the left pericardium. No pneumothorax. No significant evidence of failure Laboratory Results 03/05/17 02:30 Red Blood Count 4.76, Mean Corpuscular Volume 89.9, Mean Corpuscular Hemoglobin 29.6, Mean Corpuscular Hemoglobin Concent 32.9, Mean Platelet Volume 11.6, Neutrophils (%) (Auto) 74.5, Lymphocytes (%) (Auto) 15.8, Monocytes (%) (Auto) 7.1, Eosinophils (%) (Auto) 1.9, Basophils (%) (Auto) 0.2, Neutrophils # (Auto) 4.72, Lymphocytes # (Auto) 1.00, Monocytes # (Auto) 0.45, Eosinophils # (Auto) 0.12, Basophils # (Auto) 0.01 03/05/17 02:30 Test 03/05/17 02:30 03/05/17 06:02 White Blood Count 6.33 K/uL (4.8-10.8) Red Blood Count 4.76 M/uL (4.2-5.4) Hemoglobin 14.1 g/dL (12.0-16.0) Hematocrit 42.8 % (37-47) Mean Corpuscular Volume 89.9 fL (80-100) Mean Corpuscular Hemoglobin 29.6 pg (25-34) Mean Corpuscular Hemoglobin Concent 32.9 g/dl (32-36) Platelet Count 202 K/uL (130-400) Mean Platelet Volume 11.6 fL (7.4-10.4) Neutrophils (%) (Auto) 74.5 % Lymphocytes (%) (Auto) 15.8 % Monocytes (%) (Auto) 7.1 % Eosinophils (%) (Auto) 1.9 % Basophils (%) (Auto) 0.2 % Neutrophils # (Auto) 4.72 K/uL (1.4-6.5) Lymphocytes # (Auto) 1.00 K/uL (1.2-3.4) Monocytes # (Auto) 0.45 K/uL (0.11-0.59) Eosinophils # (Auto) 0.12 K/uL (0-0.5) Basophils # (Auto) 0.01 K/uL (0-0.2) RDW Standard Deviation 51.7 fL (36.4-46.3) RDW Coefficient of Variation 15.6 % (11.5-14.5) Immature Granulocyte % (Auto) 0.5 % Immature Granulocyte # (Auto) 0.03 K/uL (0.00-0.02) Prothrombin Time 35.2 SECONDS (9.0-12.0) Prothromb Time International Ratio 3.1 (0.9-1.1) Activated Partial Thromboplast Time 49.9 SECONDS (21.0-31.0) Partial Thromboplastin Ratio 1.9 Anion Gap 5.0 mmol/L (3-11) Estimated GFR () 49.4 Estimated GFR (Non- 42.7 BUN/Creatinine Ratio 16.9 (10-20) Calcium Level 10.2 mg/dl (8.5-10.1) Magnesium Level 2.1 mg/dl (1.8-2.4) Total Bilirubin 1.4 mg/dl (0.2-1) Direct Bilirubin 0.3 mg/dl (0-0.2) Aspartate Amino Transf (AST/SGOT) 11 U/L (15-37) Alanine Aminotransferase (ALT/SGPT) 9 U/L (12-78) Alkaline Phosphatase 137 U/L (45-117) Total Creatine Kinase 67 U/L (26-192) Creatine Kinase MB 2.3 ng/ml (0.5-3.6) Creatine Kinase MB Ratio 3.4 (0-3.0) Troponin I < 0.015 ng/ml (0-0.045) Total Protein 7.9 gm/dl (6.4-8.2) Albumin 4.2 gm/dl (3.4-5.0) Laboratory results per my review. Medications Administered Medications (Trade) Dose Ordered Sig/Geronimo Route Start Time Stop Time Status Last Admin Dose Admin Hydralazine HCl (HydrALAZINE INJ) 10 mg NOW STAT IV. 03/05/17 03:11 03/05/17 03:12 DC 03/05/17 03:17 10 MG Ranitidine HCl (zANTac TAB) 150 mg NOW ONCE PO 03/05/17 06:30 03/05/17 06:31 DC 03/05/17 06:42 150 MG Lisinopril (Zestril Tab) 5 mg NOW ONCE PO 03/05/17 06:30 03/05/17 06:31 DC 03/05/17 06:42 5 MG Carbidopa/Levodopa (Sinemet 25/ 100MG Tab) 3 tab NOW STAT PO 03/05/17 06:18 03/05/17 06:22 DC 03/05/17 06:43 3 TAB Selegiline HCl (Eldepryl Cap) 5 mg NOW STAT PO 03/05/17 06:18 03/05/17 06:22 DC 03/05/17 06:43 5 MG ECG Indication: SOB/dyspnea Rate (beats per minute): 70 Rhythm: sinus rhythm Findings: nonspecific-ST abn, PAC, other (Poor baseline for interpretation) ED Course 0258: Past medical records reviewed. The patient was evaluated in room B7. A complete history and physical examination was performed. 0311: Given Hydralazine HCl 10mg IV 0618: Given Eldepryl Cap 5mg PO, Sinemet 25/100mg Tab 3 tabs PO 0630: Given Zestril Tab 5mg PO, Zantac Tab 150mg PO. The patient will be signed out to Dr. Mukherjee at the change of shift for disposition to [facility]. Medical Decision Differential diagnosis: Etiologies such as infections, reactive airway disease, pneumonia, pneumothorax , COPD, CHF, cardiac ischemia, pulmonary embolism, musculoskeletal, gastrointestinal, as well as others were entertained. This patient was evaluated and appeared to be in no significant distress. The patient did seem to be somewhat anxious and with significant assistance use the potty chair several times on arrival. IV access was obtained and laboratory work was drawn. The patient was placed on the cardiac exercise specialist. Chest x-ray was obtained and to my interpretation is negative for failure or acute infiltrate. The patient seems to be doing much better since her daughter arrived. Her laboratory work is fairly unrevealing. Patient's INR is 3.1. Urinalysis is pending. The patient was given 1 dose of IV hydralazine for an elevated blood pressure. She was also given her morning medications including lisinopril and her anti-Parkinson's medications. A referral to [facility] was made for rehabilitation services. The family has been at this facility before and believes that was helpful. Case management has begun the process. The case has been signed out to Dr. Mukherjee at the change of shift, pending disposition. Impression Primary Impression: Parkinsons Additional Impression: Weakness generalized Scribe Attestation The scribe's documentation has been prepared under my direction and personally reviewed by me in its entirety. I confirm that the note above accurately reflects all work, treatment, procedures, and medical decision making performed by me. Departure Information Dispostion Still a Patient Referrals Edwige Mason DO (PCP) Patient Instructions My [facility] Problem Qualifiers
[2017-03-05] MEDS ORDERED: SELEGILINE HCL 5 MG CAP PO STA (06:18)
[2017-03-05] MEDS ORDERED: CARBIDOPA/LEVODOPA 25/100MG TAB PO STA ×3 (06:18→13:57)
[2017-03-05] MEDS ORDERED: LISINOPRIL 5 MG TAB PO ONE (06:30)
[2017-03-05] MEDS ORDERED: RANITIDINE HCL 150 MG TAB PO ONE (06:30)
--- NOTE | 2017-03-05 07:28 | DIAGNOSTIC IMAGING REPORT ---
CHEST ONE VIEW PORTABLE HISTORY: Short of breath. COMPARISON: Chest 01/29/2017. FINDINGS: No focal lung consolidations to suggest pneumonia. No evidence for pulmonary edema. Low lung volumes. The heart remains top normal in size. Mitral annulus calcifications. No pleural effusions. No pneumothorax. IMPRESSION: No significant change compared to the prior study. No acute process. Electronically signed by: Mat Hall M.D. 03/05/2017 7:27 AM Dictated Date/Time: 03/05/2017 7:26 AM
[2017-03-05 07:56] LABS: MANUAL MICROSCOPIC REQUIRED? NO; REVIEW REQ? NO; URINE APPEARANCE CLEAR (CLEAR); URINE BILIRUBIN NEG (NEG); URINE COLOR YELLOW; URINE NITRITE NEG (NEG); URINE SPECIFIC GRAVITY 1.006 (1.000-1.030); UROBILINOGEN NEG (NEG); ZZUR CULT IF INDIC CLEAN CATCH YES
[2017-03-05] MEDS ORDERED: CEPHALEXIN MONOHYDRATE 250 MG CAP PO STA (08:01)
[2017-03-05 09:53] VITALS: BP 130/67
[2017-03-05] MEDS ORDERED: CEPH500C PO (13:48)
--- NOTE | 2017-03-05 13:52 | EMERGENCY ROOM VISIT NOTE ---
ED Visit Note First contact with patient: 06:54 I assumed care at the change of shift. The patient was awaiting insurance approval for longterm and rehabilitation at [facility]. The PT and OT evaluations were done, rehabilitation was felt needed. Urinalysis result returned while the patient was under my care, this does suggest infection, urine culture is pending. The patient received her typical dose of Sinemet orally, she was given a dose of oral Keflex. She has done well, she has had no issues. She has been accepted for rehabilitation. She requires a longterm facility for her rehabilitation. The patient is being discharged to go directly to the rehabilitation facility for further care. A prescription for Keflex was given. Diagnosis: Parkinson's. Weakness. UTI.
[2017-03-05 14:32] VITALS: BP 126/71; PULSE 86; O2SAT 96
[2017-08-21] MEDS ORDERED: RIVA1.5T PO (16:22)
[2017-08-21] MEDS ORDERED: GABA-113 PO (16:22)
[2017-08-23] MEDS ORDERED: MRLP17X PO (11:23)
[2017-08-26] MEDS ORDERED: ARC5 PO (22:22)
[2017-08-26] MEDS ORDERED: FRS/40 PO (22:22)
[2017-08-26] MEDS ORDERED: CALC-388 PO (22:22)
[2017-08-26] MEDS ORDERED: DOCU100C31 PO (22:22)
[2017-08-26] MEDS ORDERED: FERR325T5 PO (22:22)
[2017-08-26] MEDS ORDERED: MELATAB2 PO (22:22)
[2017-08-26] MEDS ORDERED: ACET-749 PO (22:22)
[2017-08-26] MEDS ORDERED: HYDR-5688 PO (22:22)
[2017-08-26] MEDS ORDERED: BIOT50006 PO (22:22)
[2017-08-26] MEDS ORDERED: LISI-729 PO (22:22)
[2017-09-02] MEDS ORDERED: POLY335019 PO (13:34)
[2017-09-02] MEDS ORDERED: GABA-112 PO (13:34)
[2017-09-02] MEDS ORDERED: PSYL48.59 PO (13:34)
== END 2017-03-05 14:34 ==
LOC: EDBD 02:49 → C.EDB 02:50
DX: G20 Parkinson's disease (principal); R53.1 Weakness; N39.0 Urinary tract infection, site not specified; E78.5 Hyperlipidemia, unspecified; E87.0 Hyperosmolality and hypernatremia; I10 Essential (primary) hypertension; Z79.01 Long term (current) use of anticoagulants

== ENCOUNTER 2017-03-12 16:40 | Emergency (ER) | payer OTHER ==
[~2017-03-12] VITALS: Ht 157.5 cm; Wt 97.1 kg
[~2017-03-12 16:40] MED LIST changes: -CLOB1OIN2 TOP; -FRS/40 PO; -LOPE-5 PO; -QSTP PO; -VANC5CAP PO
[2017-03-12 16:52] VITALS: TEMP 36.8; Ht 157.5 cm; Wt 97.1 kg
--- NOTE | 2017-03-12 17:09 | EMERGENCY ROOM VISIT NOTE ---
History Report prepared by Morales: Keyana Johnson Under the Supervision of: Dr. Chantelle Brand D.O. First contact with patient: 17:01 Chief Complaint: CONSTIPATION Stated Complaint: AB PAIN, CONSTIPATION Nursing Triage Summary: Pt arrives to ER via BLS from [facility] with reports of constipation. Pt at [facility]hab[facility] Pt is unable to remember last BM. Per EMS, [facility] staff attempted to administer an enema and the pt began to bleed, EMS was called. Pt reports rectal pain that comes and goes. History of Present Illness The patient is an 81 year old female who presents to the Emergency Room with complaints of constant constipation beginning this morning. The patient was about to be discharged from [facility] today. An enema was given by the staff and the patient began to bleed from her rectum. The patient arrived via EMS to the ED. She is unsure of her last bowel movement. The patient is experiencing rectal pain. She was in the hospital one week ago for shortness of breath and went to [facility] to get stronger. She denies any other symptoms at this time. Source of History: patient Onset: this morning Position: other (rectum) Quality: other (constipated) Timing: constant Note: The patient is experiencing rectal pain. She denies any other symptoms at this time. Review of Systems See HPI for pertinent positives & negatives. A total of 10 systems reviewed and were otherwise negative. Past Medical & Surgical Medical Problems: (1) C. difficile colitis (2) Hyperlipidemia (3) Hyperosmolality and hypernatremia (4) Hypertension (5) Parkinsons Family History No pertinent family history Social History Smoking Status: Never Smoker Drug Use: none Marital Status: Housing Status: lives with significant other Occupation Status: retired Current/Historical Medications Scheduled Amiodarone Hcl (Cordarone), 200 MG PO DAILY Artificial Tear Ointment (Eye Lubricant), 1 APPLN OPB HS Biotin (Biotin), 5,000 MCG PO DAILY Calcium Carbonate-Vitamin D W/ (Caltrate 600 Plus), 600 MG PO DAILY Carbidopa-Levodopa (Sinemet Cr 50-200 mg), 1 TAB PO HS Carbidopa/Levodopa (Sinemet 25MG/100MG), 3 TABS PO QID Cholecalciferol (Vitamin D3), 1,000 UNITS PO DAILY Donepezil Hydrochloride (Donepezil Hcl), 5 MG PO DAILY Lisinopril (Prinivil), 5 MG PO DAILY Memantine (Namenda), 5 MG PO BID Ocuvite Preservision (Ocuvite Preservision), 1 TAB PO DAILY Ranitidine (Zantac), 150 MG PO BID Selegiline HCl (Selegiline HCl), 5 MG PO BID Warfarin Sod (Jantoven), 3 MG PO DAILY Scheduled PRN Carbidopa-Levodopa (Carbidopa/Levodopa Odt), 25-250 MG PO TID PRN for PARKINSON' S CONTROL Levalbuterol Tartrate (Levalbuterol Tartrate Hfa), 2 PUFFS INH DAILY PRN for SOB /Wheezing Allergies Coded Allergies: Succinylcholine (Unverified Allergy, Severe, 03/12/17) Physical Exam Vital Signs Date Time Temp Pulse Resp B/P Pulse Ox O2 Delivery O2 Flow Rate FiO2 03/12/17 20:09 74 18 130/78 93 Room Air 03/12/17 17:53 79 16 159/87 98 Room Air 03/12/17 16:54 79 03/12/17 16:52 36.8 77 18 158/80 98 Room Air Physical Exam HEENT: Head - normocephalic and atraumatic Pupils are equal, round, and reactive to light. Extraocular eye muscles are intact, and sclera are anicteric. Nose - moist nasal mucosa without discharge. Mouth - moist buccal mucosa. Oropharynx is nonerythematous and there is no tonsillar exudate or edema noted. Neck: Supple; no JVD, nuchal rigidity, cervical lymphadenopathy. Heart: Regular rate and rhythm. There is a normal S1 and S2 with no murmurs, clicks, or gallops appreciated. Lungs: Clear to auscultation bilaterally with no wheezes, rales, or rhonchi. Abdomen: Soft, completely nontender, nondistended, with hyperactive bowel sounds. There are no palpable pulsatile masses or hepatosplenomegaly. There is no guarding, rigidity, or rebound noted. Extremities: No evidence of cyanosis, clubbing, or edema. There are easily palpable peripheral pulses. Skin: warm and dry with good turgor and no rashes. Medical Decision & Procedures ER Provider Diagnostic Interpretation: X-ray results as stated below per interpretation by nd and the radiologist: ABDOMEN 2VIEW W/PA CHEST RTN CLINICAL HISTORY: EVAL FOR OBSTRUCTION pain COMPARISON STUDY: 03/05/2017 FINDINGS: The soft tissues, psoas shadows, renal outlines and intestinal gas pattern appear normal. There is no evidence for bowel obstruction. There is no evidence for free intraperitoneal air. No abnormal abdominal calcifications are seen. A frontal view of the chest was performed and is unremarkable. IMPRESSION: Normal study. Nonobstructive bowel pattern. Mild increase in sigmoid fecal load Electronically signed by: Aquilino Galvez M.D. 03/12/2017 5:49 PM Dictated Date/Time: 03/12/2017 5:48 PM Laboratory Results Test 03/12/17 20:15 Prothrombin Time 23.3 SECONDS (9.0-12.0) Prothromb Time International Ratio 2.1 (0.9-1.1) Laboratory results per my review. Medications Administered Medications (Trade) Dose Ordered Sig/Geronimo Route Start Time Stop Time Status Last Admin Dose Admin Lidocaine HCl (Xylocaine Jelly 2%) 5 ml NOW ONCE EXT 03/12/17 18:00 03/12/17 18:01 DC 03/12/17 18:25 5 ML Procedure Xylocaine Jelly 5 ml EXT. ED Course 170: Past medical records reviewed. The patient was evaluated in room A9. A complete history and physical exam was performed. The patient went for an obstruction series as described above. 5: I discussed the patient's results with her. Lidocaine gel will be put on and then soap suds enema will be administered. 1849: I reevaluated the patient. She is currently trying to pass her stool. 1955: The first enema had significant output. Second enema had very little output. 2003: The patient's family would like her INR checked since they are suppose to have it checked tomorrow morning. 2036: Upon reevaluation, hemodynamically stable. I discussed findings and results with her. She verbalized agreement of the treatment plan. She was discharged home. Medical Decision The patient is a 81 year old female who presents to the ED with constipation. Differential diagnosis includes small bowel obstruction, obstipation, fecal impaction, constipation. Lab findings include INR 2.1. The patient has moderate colonic fecal retention specifically at the rectum and sigmoid. The patient had moderate results with the soapsuds enema. I've encouraged the patient to avoid dairy products and bananas. She went to take increased fluids and consider a stool softener. I've asked the family to contact the Coumadin clinic with the results of her INR from today. Impression Primary Impression: Constipation Scribe Attestation The scribe's documentation has been prepared under my direction and personally reviewed by me in its entirety. I confirm that the note above accurately reflects all work, treatment, procedures, and medical decision making performed by me. Departure Information Dispostion Home / Self-Care Referrals Edwige Mason DO (PCP) Forms HOME CARE DOCUMENTATION FORM, IMPORTANT VISIT INFORMATION Patient Instructions Constipation, My [facility] Additional Instructions Encourage plenty of clear liquids. Avoid dairy for next couple of days. INR - 2.1
--- NOTE | 2017-03-12 17:50 | DIAGNOSTIC IMAGING REPORT ---
ABDOMEN 2VIEW W/PA CHEST RTN CLINICAL HISTORY: EVAL FOR OBSTRUCTION pain COMPARISON STUDY: 03/05/2017 FINDINGS: The soft tissues, psoas shadows, renal outlines and intestinal gas pattern appear normal. There is no evidence for bowel obstruction. There is no evidence for free intraperitoneal air. No abnormal abdominal calcifications are seen. A frontal view of the chest was performed and is unremarkable. IMPRESSION: Normal study. Nonobstructive bowel pattern. Mild increase in sigmoid fecal load Electronically signed by: Aquilino Galvez M.D. 03/12/2017 5:49 PM Dictated Date/Time: 03/12/2017 5:48 PM
[2017-03-12] MEDS ORDERED: LIDOCAINE HCL 2% JELLY 30 ML TUBE EXT ONE (18:00)
[2017-03-12 20:09] VITALS: BP 130/78; PULSE 74; O2SAT 93
[2017-03-12 20:28] LABS: INR 2.1 (0.9-1.1); PROTHROMBIN TIME (PATIENT) 23.3 SECONDS (9.0-12.0)
[2017-08-21] MEDS ORDERED: GABA-113 PO (16:22)
[2017-08-21] MEDS ORDERED: RIVA1.5T PO (16:22)
[2017-08-23] MEDS ORDERED: MRLP17X PO (11:23)
[2017-08-26] MEDS ORDERED: FRS/40 PO (22:22)
[2017-08-26] MEDS ORDERED: ACET-749 PO (22:22)
[2017-08-26] MEDS ORDERED: CALC-388 PO (22:22)
[2017-08-26] MEDS ORDERED: LISI-729 PO (22:22)
[2017-08-26] MEDS ORDERED: MELATAB2 PO (22:22)
[2017-08-26] MEDS ORDERED: DOCU100C31 PO (22:22)
[2017-08-26] MEDS ORDERED: FERR325T5 PO (22:22)
[2017-08-26] MEDS ORDERED: HYDR-5688 PO (22:22)
[2017-08-26] MEDS ORDERED: ARC5 PO (22:22)
[2017-08-26] MEDS ORDERED: BIOT50006 PO (22:22)
[2017-09-02] MEDS ORDERED: GABA-112 PO (13:34)
[2017-09-02] MEDS ORDERED: POLY335019 PO (13:34)
[2017-09-02] MEDS ORDERED: PSYL48.59 PO (13:34)
[2017-10-02] MEDS ORDERED: RXC5 PO (10:29)
== END 2017-03-12 20:40 | disposition home or self-care (01) ==
LOC: EDBD 16:40 → C.EDA 16:46
DX: K59.00 Constipation, unspecified (principal); E78.5 Hyperlipidemia, unspecified; I10 Essential (primary) hypertension; G20 Parkinson's disease; Z79.01 Long term (current) use of anticoagulants; Z79.899 Other long term (current) drug therapy

== ENCOUNTER 2017-03-15 05:28 | Emergency (ER) | payer OTHER ==
[~2017-03-15] VITALS: Ht 157.5 cm; Wt 95.5 kg
[2017-03-15 05:38] VITALS: TEMP 36.6; Ht 157.5 cm; Wt 95.5 kg
--- NOTE | 2017-03-15 05:42 | EMERGENCY ROOM VISIT NOTE ---
History Report prepared by Morales: Evgeny Ramirez Under the Supervision of: Dr. David Thompson D.O. First contact with patient: 05:31 Chief Complaint: ABDOMINAL PAIN Stated Complaint: ABDOMINAL PAIN History of Present Illness The patient is an 81 year old female who presents to the Emergency Room with complaints of persistent abdominal pain for the past several days. The pain is rated 3/10 in severity. The patient was in the ED three days ago with constipation. She was prescribed a laxative and discharged home. The patient was able to pass some stool, however she still complains of abdominal pain and nausea. The patient has been eating. Source of History: patient Onset: several days ago Position: abdomen Symptom Intensity: 3/10 Timing: other (persistent) Associated Symptoms: + nausea Review of Systems See HPI for pertinent positives and negatives. A total of ten systems were reviewed and were otherwise negative. Past Medical & Surgical Medical Problems: (1) C. difficile colitis (2) Hyperlipidemia (3) Hyperosmolality and hypernatremia (4) Hypertension (5) Parkinsons Family History No pertinent family history Social History Smoking Status: Never Smoker Drug Use: none Marital Status: Housing Status: lives with significant other Occupation Status: retired Current/Historical Medications Scheduled Amiodarone Hcl (Cordarone), 200 MG PO DAILY Artificial Tear Ointment (Eye Lubricant), 1 APPLN OPB HS Biotin (Biotin), 5,000 MCG PO DAILY Calcium Carbonate-Vitamin D W/ (Caltrate 600 Plus), 600 MG PO DAILY Carbidopa-Levodopa (Sinemet Cr 50-200 mg), 1 TAB PO HS Carbidopa/Levodopa (Sinemet 25MG/100MG), 3 TABS PO QID Cholecalciferol (Vitamin D3), 1,000 UNITS PO DAILY Donepezil Hydrochloride (Donepezil Hcl), 5 MG PO DAILY Lisinopril (Prinivil), 5 MG PO DAILY Memantine (Namenda), 5 MG PO BID Ocuvite Preservision (Ocuvite Preservision), 1 TAB PO DAILY Ranitidine (Zantac), 150 MG PO BID Selegiline HCl (Selegiline HCl), 5 MG PO BID Warfarin Sod (Jantoven), 3 MG PO DAILY Scheduled PRN Carbidopa-Levodopa (Carbidopa/Levodopa Odt), 25-250 MG PO TID PRN for PARKINSON' S CONTROL Levalbuterol Tartrate (Levalbuterol Tartrate Hfa), 2 PUFFS INH DAILY PRN for SOB /Wheezing Allergies Coded Allergies: Succinylcholine (Unverified Allergy, Severe, 03/15/17) Physical Exam Vital Signs Date Time Temp Pulse Resp B/P Pulse Ox O2 Delivery O2 Flow Rate FiO2 03/15/17 07:03 99 Room Air 03/15/17 07:02 73 18 176/95 100 Room Air 03/15/17 05:46 67 03/15/17 05:38 36.6 73 161/96 100 Room Air Physical Exam GENERAL: Awake, alert, well-appearing, in no distress HENT: Normocephalic, atraumatic. Oropharynx unremarkable. EYES: Normal conjunctiva. Sclera non-icteric. NECK: Supple. No nuchal rigidity. FROM. No JVD. RESPIRATORY: Clear to auscultation. CARDIAC: Regular rate, normal rhythm. Extremities warm and well perfused. Pulses equal. ABDOMEN: Soft, nontender, increased bowel sounds, no palpable abdominal masses or abnormal aortic pulsations. RECTAL: Deferred. MUSCULOSKELETAL: Chest examination reveals no tenderness. The back is symmetrical on inspection without obvious abnormality. There is no CVA tenderness to palpation. No joint edema. LOWER EXTREMITIES: Calves are equal size bilaterally and non-tender. No edema. No discoloration. NEURO: Normal sensorium. No sensory or motor deficits noted. SKIN: No rash or jaundice noted. Medical Decision & Procedures ER Provider Diagnostic Interpretation: Radiology results as stated below per my review and radiologist interpretation ABDOMEN AND PELVIS CT WITH IV CONTRAST CT DOSE: 1031.12 mGy.cm HISTORY: Generalized abdominal pain TECHNIQUE: Multiaxial CT images of the abdomen and pelvis were performed following the use of intravenous contrast. COMPARISON STUDY: Abdomen and pelvis CT 01/29/2017. FINDINGS: Mild dependent changes seen at the lung bases. The liver, spleen, adrenal glands, gallbladder, and pancreas remain stable. No renal stones or hydronephrosis. No retroperitoneal lymphadenopathy. The bladder, uterus, bilateral adnexa are unremarkable. There is mild to moderate rectal thickening. There is moderate presacral edema and perirectal fat stranding. Findings are consistent with a nonspecific proctitis. Colonic diverticulosis. No evidence for bowel obstruction. Tiny fat-containing midline ventral hernia. Normal appendix. IMPRESSION: 1. Rectal wall thickening with perirectal fat stranding and moderate presacral edema. This is consistent with a nonspecific proctitis. This favors an inflammatory or infectious process. 2. No evidence for bowel obstruction. 3. Colonic diverticulosis. 4. Normal appendix. Electronically signed by: Mat Hall M.D. 03/15/2017 7:11 AM Dictated Date/Time: 03/15/2017 7:05 AM Laboratory Results 03/15/17 05:50 Red Blood Count 4.32, Mean Corpuscular Volume 89.6, Mean Corpuscular Hemoglobin 28.9, Mean Corpuscular Hemoglobin Concent 32.3, Mean Platelet Volume 11.1, Neutrophils (%) (Auto) 76.6, Lymphocytes (%) (Auto) 12.3, Monocytes (%) (Auto) 8.1, Eosinophils (%) (Auto) 2.3, Basophils (%) (Auto) 0.2, Neutrophils # (Auto) 4.93, Lymphocytes # (Auto) 0.79, Monocytes # (Auto) 0.52, Eosinophils # (Auto) 0.15, Basophils # (Auto) 0.01 03/15/17 05:50 Test 03/15/17 05:50 03/15/17 07:00 White Blood Count 6.43 K/uL (4.8-10.8) Red Blood Count 4.32 M/uL (4.2-5.4) Hemoglobin 12.5 g/dL (12.0-16.0) Hematocrit 38.7 % (37-47) Mean Corpuscular Volume 89.6 fL (80-100) Mean Corpuscular Hemoglobin 28.9 pg (25-34) Mean Corpuscular Hemoglobin Concent 32.3 g/dl (32-36) Platelet Count 176 K/uL (130-400) Mean Platelet Volume 11.1 fL (7.4-10.4) Neutrophils (%) (Auto) 76.6 % Lymphocytes (%) (Auto) 12.3 % Monocytes (%) (Auto) 8.1 % Eosinophils (%) (Auto) 2.3 % Basophils (%) (Auto) 0.2 % Neutrophils # (Auto) 4.93 K/uL (1.4-6.5) Lymphocytes # (Auto) 0.79 K/uL (1.2-3.4) Monocytes # (Auto) 0.52 K/uL (0.11-0.59) Eosinophils # (Auto) 0.15 K/uL (0-0.5) Basophils # (Auto) 0.01 K/uL (0-0.2) RDW Standard Deviation 50.8 fL (36.4-46.3) RDW Coefficient of Variation 15.3 % (11.5-14.5) Immature Granulocyte % (Auto) 0.5 % Immature Granulocyte # (Auto) 0.03 K/uL (0.00-0.02) Prothrombin Time 24.9 SECONDS (9.0-12.0) Prothromb Time International Ratio 2.2 (0.9-1.1) Anion Gap 5.0 mmol/L (3-11) Est Creatinine Clear Calc Drug Dose 44.0 ml/min Estimated GFR () 54.9 Estimated GFR (Non- 47.4 BUN/Creatinine Ratio 21.9 (10-20) Calcium Level 9.1 mg/dl (8.5-10.1) Total Bilirubin 1.2 mg/dl (0.2-1) Direct Bilirubin 0.3 mg/dl (0-0.2) Aspartate Amino Transf (AST/SGOT) 13 U/L (15-37) Alanine Aminotransferase (ALT/SGPT) 6 U/L (12-78) Alkaline Phosphatase 112 U/L (45-117) Total Protein 6.9 gm/dl (6.4-8.2) Albumin 3.4 gm/dl (3.4-5.0) Lipase 187 U/L (73-393) Laboratory results reviewed by me ED Course 0532: The patient was evaluated in room B9. A complete history and physical exam was performed. 0715: I reevaluated the patient. Discussed results and discharge instructions: She verbalized understanding and agreement. The patient is ready for discharge. Patient resting in no distress discussed workup with patient and daughter at bedside. Medical Decision Differential diagnosis includes bowel obstruction, constipation, colitis. Impression Primary Impression: Proctitis Scribe Attestation The scribe's documentation has been prepared under my direction and personally reviewed by me in its entirety. I confirm that the note above accurately reflects all work, treatment, procedures, and medical decision making performed by me. Departure Information Dispostion Home / Self-Care Referrals Edwige Mason DO (PCP) Patient Instructions Abdominal Pain, My [facility]
[2017-03-15] MEDS ORDERED: OPTIRAY 320 IV PRN (05:45)
[2017-03-15 06:05] LABS: BASO % 0.2 %; BASO ABS # 0.01 K/uL (0-0.2); COMPLETE YES; EOS % 2.3 %; HEMATOCRIT 38.7 % (37-47); IG% 0.5 %; LYMPH % 12.3 %; LYMPH ABS # 0.79 K/uL (1.2-3.4); MEAN CELL VOLUME 89.6 fL (80-100); MEAN CORPUSCULAR HEMOGLOBIN 28.9 pg (25-34); MEAN CORPUSCULAR HGB CONC 32.3 g/dl (32-36); MEAN PLATELET VOLUME 11.1 fL (7.4-10.4); MONO % 8.1 %; NEUT % 76.6 %; PLATELET COUNT 176 K/uL (130-400); RED BLOOD COUNT 4.32 M/uL (4.2-5.4); WHITE BLOOD COUNT 6.43 K/uL (4.8-10.8)
[2017-03-15 06:17] LABS: INR 2.2 (0.9-1.1); PROTHROMBIN TIME (PATIENT) 24.9 SECONDS (9.0-12.0)
[2017-03-15 06:22] LABS: BUN/CREATININE RATIO 21.9 (10-20); CALCIUM 9.1 mg/dl (8.5-10.1); CREATININE 1.1 mg/dl (0.60-1.20); POTASSIUM 4.1 mmol/L (3.5-5.1)
[2017-03-15 07:02] VITALS: BP 176/95; PULSE 73; O2SAT 100
[2017-03-15 07:03] VITALS: O2SAT 99
[2017-03-15 07:11] LABS: URINE APPEARANCE CLEAR (CLEAR); URINE BILIRUBIN NEG (NEG); URINE COLOR YELLOW; URINE NITRITE NEG (NEG); URINE PH 6.5 (4.5-7.5); URINE SPECIFIC GRAVITY 1.012 (1.000-1.030); UROBILINOGEN NEG (NEG); ZZUR CULT IF INDIC CLEAN CATCH NO
--- NOTE | 2017-03-15 07:12 | DIAGNOSTIC IMAGING REPORT ---
ABDOMEN AND PELVIS CT WITH IV CONTRAST CT DOSE: 1031.12 mGy.cm HISTORY: Generalized abdominal pain TECHNIQUE: Multiaxial CT images of the abdomen and pelvis were performed following the use of intravenous contrast. COMPARISON STUDY: Abdomen and pelvis CT 01/29/2017. FINDINGS: Mild dependent changes seen at the lung bases. The liver, spleen, adrenal glands, gallbladder, and pancreas remain stable. No renal stones or hydronephrosis. No retroperitoneal lymphadenopathy. The bladder, uterus, bilateral adnexa are unremarkable. There is mild to moderate rectal thickening. There is moderate presacral edema and perirectal fat stranding. Findings are consistent with a nonspecific proctitis. Colonic diverticulosis. No evidence for bowel obstruction. Tiny fat-containing midline ventral hernia. Normal appendix. IMPRESSION: 1. Rectal wall thickening with perirectal fat stranding and moderate presacral edema. This is consistent with a nonspecific proctitis. This favors an inflammatory or infectious process. 2. No evidence for bowel obstruction. 3. Colonic diverticulosis. 4. Normal appendix. Electronically signed by: Mat Hall M.D. 03/15/2017 7:11 AM Dictated Date/Time: 03/15/2017 7:05 AM
[2017-03-15 07:21] LABS: MANUAL MICROSCOPIC REQUIRED? NO; REVIEW REQ? NO
[2017-08-21] MEDS ORDERED: RIVA1.5T PO (16:22)
[2017-08-21] MEDS ORDERED: GABA-113 PO (16:22)
[2017-08-23] MEDS ORDERED: MRLP17X PO (11:23)
[2017-08-26] MEDS ORDERED: DOCU100C31 PO (22:22)
[2017-08-26] MEDS ORDERED: FERR325T5 PO (22:22)
[2017-08-26] MEDS ORDERED: ARC5 PO (22:22)
[2017-08-26] MEDS ORDERED: FRS/40 PO (22:22)
[2017-08-26] MEDS ORDERED: BIOT50006 PO (22:22)
[2017-08-26] MEDS ORDERED: LISI-729 PO (22:22)
[2017-08-26] MEDS ORDERED: HYDR-5688 PO (22:22)
[2017-08-26] MEDS ORDERED: ACET-749 PO (22:22)
[2017-08-26] MEDS ORDERED: MELATAB2 PO (22:22)
[2017-08-26] MEDS ORDERED: CALC-388 PO (22:22)
[2017-09-02] MEDS ORDERED: PSYL48.59 PO (13:34)
[2017-09-02] MEDS ORDERED: GABA-112 PO (13:34)
[2017-09-02] MEDS ORDERED: POLY335019 PO (13:34)
[2017-10-02] MEDS ORDERED: RXC5 PO (10:29)
== END 2017-03-15 07:32 | disposition home or self-care (01) ==
LOC: EDBD 05:28 → C.EDB 05:30
DX: K62.89 Other specified diseases of anus and rectum (principal); E78.5 Hyperlipidemia, unspecified; E87.0 Hyperosmolality and hypernatremia; I10 Essential (primary) hypertension; G20 Parkinson's disease; Z79.01 Long term (current) use of anticoagulants; Z79.899 Other long term (current) drug therapy

== ENCOUNTER 2017-03-24 14:26 | Emergency (ER) | payer OTHER ==
[2017-03-24 14:32] VITALS: TEMP 36.6; Ht 160 cm
[2017-03-24] MEDS ORDERED: WARF2.5T8 PO (16:42)
[2017-03-24] MEDS ORDERED: PHYTONADIONE 5 MG TAB PO STA ×2 (16:58→17:12)
--- NOTE | 2017-03-24 17:01 | EMERGENCY ROOM VISIT NOTE ---
History Report prepared by Morales: Kolby Connors Under the Supervision of: Dr. Nicko Reyes D.O. 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 The patient's daughter states that the patient had a routine INR check by the patient's home health nurse, and it came back at 8.1. The patient' s daughter contacted the patient's primary care office, and was recommended to bring the patient here, perhaps for a Vitamin K injection. The patient is not having any symptoms, and any bleeding was denied. She did have 2 Advil last night. The patient has only had a few events of abnormal INR's recently, but the patient's daughter is surprised that the patient's INR would be so high today. Source of History: family Onset: Prior to arrival today Position: other (global - elevated INR) Symptom Intensity: INR of 8.1 Note: Associated symptoms: Patient is not having any symptoms. Bleeding denied. Review of Systems See HPI for pertinent positives & negatives. A total of 10 systems reviewed and were otherwise negative. Past Medical & Surgical Medical Problems: (1) C. difficile colitis (2) Hyperlipidemia (3) Hyperosmolality and hypernatremia (4) Hypertension (5) Parkinsons Family History No pertinent family history Social History Smoking Status: Never Smoker Drug Use: none Marital Status: Housing Status: lives with significant other Occupation Status: retired Current/Historical Medications Scheduled Amiodarone Hcl (Cordarone), 200 MG PO DAILY Artificial Tear Ointment (Eye Lubricant), 1 APPLN OPB HS Biotin (Biotin), 5,000 MCG PO DAILY Calcium Carbonate-Vitamin D W/ (Caltrate 600 Plus), 600 MG PO DAILY Carbidopa-Levodopa (Sinemet Cr 50-200 mg), 1 TAB PO HS Carbidopa/Levodopa (Sinemet 25MG/100MG), 3 TABS PO QID Cholecalciferol (Vitamin D3), 1,000 UNITS PO DAILY Donepezil Hydrochloride (Donepezil Hcl), 5 MG PO DAILY Lisinopril (Prinivil), 5 MG PO DAILY Memantine (Namenda), 5 MG PO BID Ocuvite Preservision (Ocuvite Preservision), 1 TAB PO DAILY Ranitidine (Zantac), 150 MG PO BID Selegiline HCl (Selegiline HCl), 5 MG PO BID Warfarin Sod (Jantoven), 2.5 MG PO DAILY Scheduled PRN Carbidopa-Levodopa (Carbidopa/Levodopa Odt), 25-250 MG PO TID PRN for PARKINSON' S CONTROL Levalbuterol Tartrate (Levalbuterol Tartrate Hfa), 2 PUFFS INH DAILY PRN for SOB /Wheezing Allergies Coded Allergies: Succinylcholine (Unverified Allergy, Severe, 03/24/17) Physical Exam Vital Signs Date Time Temp Pulse Resp B/P Pulse Ox O2 Delivery O2 Flow Rate FiO2 03/24/17 14:32 36.6 76 20 131/75 95 Room Air Physical Exam CONSTITUTIONAL/VITAL SIGNS: Reviewed / noted above. GENERAL: Non-toxic in appearance. INTEGUMENTARY: Warm, dry, and [place]. HEAD: Normocephalic. EYES: without scleral icterus or trauma. ENT/OROPHARYNX: clear and moist. LYMPHADENOPATHY/NECK: Is supple without lymphadenopathy or meningismus. RESPIRATORY: Lungs clear and equal. CARDIOVASCULAR: Regular rate and rhythm. GI/ABDOMEN: Soft and nontender. No organomegaly or pulsatile mass. No rebound or guarding. Normal bowel sounds. EXTREMITIES: Warm and well perfused. BACK: No CVA tenderness. NEUROLOGICAL: Intact without focal deficits. PSYCHIATRIC: normal affect. MUSCULOSKELETAL: Normally developed with good muscle tone. Medical Decision & Procedures Laboratory Results Test 03/24/17 16:48 Laboratory results as stated above per my review. ED Course 1614: Previous medical records were reviewed. The patient was evaluated in room C2B. A complete history and physical examination was performed. 165: Ordered Mephy[place] Tab 5 mg PO. 1702: On reevaluation, the patient is resting comfortably. I discussed the results and findings with the patient. She verbalized agreement of the treatment plan. She was discharged home. Medical Decision There is no clinical findings to suggest infection, anemia. Medication Reconciliation: I attest that I have personally reviewed the patient' s current medication list. Blood pressure Screening: Patient was found to have normal blood pressure on screening and does not require follow-up. This is a 81-year-old female who presents to the ED with a chief complaint of elevated INR. The patient's INR was tested as an outpatient and it was 8.1. She was told to come to the ED for this. She denies any bleeding or any symptoms. The patient is on Coumadin for A. fib. She also requested that her hemoglobin A1c be tested. Her INR is 7. She was treated with 5 mg of by mouth vitamin K. She was felt to be stable for discharge. Impression Primary Impression: Elevated INR Scribe Attestation The scribe's documentation has been prepared under my direction and personally reviewed by me in its entirety. I confirm that the note above accurately reflects all work, treatment, procedures, and medical decision making performed by me. Departure Information Dispostion Home / Self-Care Referrals Edwige Mason DO (PCP) Patient Instructions My [facility] Additional Instructions Follow-up with your doctor for further suggestions on Coumadin dosing. Return for any concerns or worsening.
[2017-03-24 17:41] VITALS: BP 146/92; PULSE 80; O2SAT 96
[2017-03-25 06:33] LABS: ESTIMATED AVERAGE GLUCOSE 100 mg/dl; HA1C FLAG Normal (Normal)
[2017-08-21] MEDS ORDERED: GABA-113 PO (16:22)
[2017-08-21] MEDS ORDERED: RIVA1.5T PO (16:22)
[2017-08-23] MEDS ORDERED: MRLP17X PO (11:23)
[2017-08-26] MEDS ORDERED: HYDR-5688 PO (22:22)
[2017-08-26] MEDS ORDERED: FERR325T5 PO (22:22)
[2017-08-26] MEDS ORDERED: MELATAB2 PO (22:22)
[2017-08-26] MEDS ORDERED: CALC-388 PO (22:22)
[2017-08-26] MEDS ORDERED: BIOT50006 PO (22:22)
[2017-08-26] MEDS ORDERED: ACET-749 PO (22:22)
[2017-08-26] MEDS ORDERED: ARC5 PO (22:22)
[2017-08-26] MEDS ORDERED: DOCU100C31 PO (22:22)
[2017-08-26] MEDS ORDERED: LISI-729 PO (22:22)
[2017-08-26] MEDS ORDERED: FRS/40 PO (22:22)
[2017-09-02] MEDS ORDERED: GABA-112 PO (13:34)
[2017-09-02] MEDS ORDERED: PSYL48.59 PO (13:34)
[2017-09-02] MEDS ORDERED: POLY335019 PO (13:34)
[2017-10-02] MEDS ORDERED: RXC5 PO (10:29)
== END 2017-03-24 17:43 | disposition home or self-care (01) ==
LOC: C.EDB 14:28 → C.EDC 17:43
DX: R79.1 Abnormal coagulation profile (principal); G20 Parkinson's disease; E78.5 Hyperlipidemia, unspecified; I48.91 Unspecified atrial fibrillation; I10 Essential (primary) hypertension; Z79.01 Long term (current) use of anticoagulants; Z79.899 Other long term (current) drug therapy

== ENCOUNTER 2017-04-05 13:38 | Inpatient (IN) | payer OTHER ==
[2017-04-05] VITALS (9 sets, daily range): BP systolic 97–137; BP diastolic 47–65; PULSE 58–73; TEMP 36.4–36.5; O2SAT 93–100; Ht 160 cm; Wt 94.0 kg
[~2017-04-05] VITALS: Ht 160 cm; Wt 94.0 kg
[~2017-04-05 13:38] MED LIST changes: +WARF2.5T8 PO; -WARF3TAB6 PO
[2017-04-05] MEDS ORDERED: SODIUM CHLORIDE 0.9% 1000ML 1,000 ML IV ONE (13:51)
[2017-04-05 14:03] LABS: EOS % 0.2 %; HEMATOCRIT 27.3 % (37-47); IG% 0.6 %; LYMPH % 3.9 %; LYMPH ABS # 0.34 K/uL (1.2-3.4); MEAN CELL VOLUME 88.1 fL (80-100); MEAN CORPUSCULAR HEMOGLOBIN 28.1 pg (25-34); MEAN CORPUSCULAR HGB CONC 31.9 g/dl (32-36); MEAN PLATELET VOLUME 11.2 fL (7.4-10.4); MONO % 7.3 %; PLATELET COUNT 237 K/uL (130-400); WHITE BLOOD COUNT 8.68 K/uL (4.8-10.8)
[2017-04-05 14:13] LABS: ALT/SGPT 7 U/L (12-78); BLOOD UREA NITROGEN 24 mg/dl (7-18); BUN/CREATININE RATIO 15.9 (10-20); CALCIUM 8.6 mg/dl (8.5-10.1); CARBON DIOXIDE 25 mmol/L (21-32); CHLORIDE 100 mmol/L (98-107); GLUCOSE 148 mg/dl (70-99); MAGNESIUM 1.9 mg/dl (1.8-2.4); POTASSIUM 4.5 mmol/L (3.5-5.1); SODIUM 134 mmol/L (136-145)
[2017-04-05] MEDS ORDERED: OPTIRAY 320 IV PRN (14:15)
[2017-04-05 14:20] LABS: ALB/GLOB RATIO 1.1 (0.9-2); ALKALINE PHOSPHATASE 117 U/L (45-117); AST/SGOT 10 U/L (15-37); C-REACTIVE PROTEIN 4.58 mg/dl (0-0.29)
[2017-04-05 14:21] LABS: VEN BLD GAS O2 SATURATION < 60.0 %; VENOUS BLOOD GAS PCO2 41 mmHg (38.0-50.0); VENOUS BLOOD GAS PO2 18 mmHg
[2017-04-05 14:25] LABS: COMPLETE YES
[2017-04-05 14:32] LABS: ISTAT CREATININE 1.4 mg/dl (0.6-1.3); ISTAT HEMOGLOBIN 8.2 g/dl (12.0-16.0); ISTAT IONIZED CALCIUM 1.22 mmol/l (1.12-1.32)
--- NOTE | 2017-04-05 14:37 | DIAGNOSTIC IMAGING REPORT ---
CHEST ONE VIEW PORTABLE CLINICAL HISTORY: Sepsis COMPARISON STUDY: 03/12/2017 FINDINGS: The cardiac and mediastinal contours are normal. There is no evidence of focal pulmonary consolidation. There is no evidence of failure. No pleural effusions are visualized.[ There is calcification of the mitral valve annulus. Slightly prominent basilar markings remain stable. IMPRESSION: No active disease in the chest. Electronically signed by: Norris Jasso M.D. 04/05/2017 2:35 PM Dictated Date/Time: 04/05/2017 2:35 PM
[2017-04-05 14:40] LABS: PARTIAL THROMBOPLASTIN RATIO 2.2; PROTHROMBIN TIME (PATIENT) 81.9 SECONDS (9.0-12.0)
--- NOTE | 2017-04-05 14:40 | EMERGENCY ROOM VISIT NOTE ---
History Report prepared by Morales: Karlene Atwood Under the Supervision of: Dr. Delano Loera D.O. First contact with patient: 13:44 Chief Complaint: LETHARGIC Stated Complaint: LETHARGIC/ [facility] History of Present Illness The patient is a 81 year old female who presents to the Emergency Room with complaints of worsening lethargy for the past few days. Son-in-law states that the patient has been complaining of flu-like symptoms for the past week. She has not been eating or drinking much because she is nauseated. He notes that the patient has been feeling weak and has fallen three times in the past couple of days. She fell earlier today. Family states that this is atypical of the patient. The patient was at [facility] this morning and was found to be hypotensive. She was sent to the ED for further evaluation. She received 500 NSS en route to the ED. She denies neck pain and urinary symptoms. Family states that she has had UTIs in the past with her most recent one within the past month. The patient is on Warfarin for a-fib. Source of History: patient, family Onset: a few days ago Position: other (global) Quality: other (lethargy) Timing: worsening Associated Symptoms: + nausea, + weakness, No neck pain, No urinary symptoms Review of Systems See HPI for pertinent positives & negatives. A total of 10 systems reviewed and were otherwise negative. Past Medical & Surgical Medical Problems: (1) C. difficile colitis (2) Hyperlipidemia (3) Hyperosmolality and hypernatremia (4) Hypertension (5) Parkinsons Family History No pertinent family history Social History Smoking Status: Never Smoker Smokeless Tobacco Use: No Alcohol Use: none Drug Use: none Marital Status: Housing Status: lives with significant other Occupation Status: retired Current/Historical Medications Scheduled Amiodarone Hcl (Cordarone), 200 MG PO DAILY Artificial Tear Ointment (Eye Lubricant), 1 APPLN OPB HS Carbidopa-Levodopa (Sinemet Cr 50-200 mg), 1 TAB PO HS Carbidopa/Levodopa (Sinemet 25MG/100MG), 3 TABS PO QID Donepezil Hydrochloride (Donepezil Hcl), 5 MG PO DAILY Lisinopril (Prinivil), 5 MG PO DAILY Memantine (Namenda), 5 MG PO BID Ranitidine (Zantac), 150 MG PO BID Selegiline HCl (Selegiline HCl), 5 MG PO BID Warfarin Sod (Jantoven), 2.5 MG PO 2XWK Warfarin Sod (Jantoven), 3 MG PO 5XWK Scheduled PRN Carbidopa-Levodopa (Carbidopa/Levodopa Odt), 25-250 MG PO TID PRN for PARKINSON' S CONTROL Diphenhydramine Hcl (Benadryl), Unknown Dose PO HS PRN for Sleep Furosemide (Lasix), 40 MG PO DAILY PRN for FLUID RETENTION Levalbuterol Tartrate (Levalbuterol Tartrate Hfa), 2 PUFFS INH DAILY PRN for SOB /Wheezing Melatonin (Kp Melatonin), Unknown Dose PO HS PRN for SL Allergies Coded Allergies: Succinylcholine (Verified Allergy, Severe, 04/05/17) Physical Exam Vital Signs Date Time Temp Pulse Resp B/P (MAP) Pulse Ox O2 Delivery O2 Flow Rate FiO2 04/05/17 16:49 36.5 58 20 108/56 93 04/05/17 16:31 59 20 120/99 94 Room Air 2.0 Nasal Cannula 04/05/17 16:00 57 20 115/65 93 Room Air 04/05/17 15:38 60 18 123/56 93 Nasal Cannula 3.0 04/05/17 15:20 96 Room Air 04/05/17 14:59 58 20 104/65 98 Nasal Cannula 2.0 04/05/17 14:21 61 102/50 04/05/17 13:46 60 04/05/17 13:45 36.6 65 18 87/56 97 Room Air Physical Exam GENERAL: Patient is awake, alert, somewhat listless appearing and does not appear to be uncomfortable. She answers questions appropriately. Patient is resting comfortably and showing no signs of anxiety EYES: The conjunctivae are clear. The pupils are round and reactive. EARS, NOSE, MOUTH AND THROAT: The nose is without any evidence of any deformity. Mucous membranes are moist tongue is midline NECK: The neck is nontender and supple. RESPIRATORY: Normal respiratory effort is noted. Lung sounds diminished throughout, there is no evidence of wheezing rhonchi or rales CARDIOVASCULAR: Regular rate and rhythm noted there no murmurs rubs or gallops normal S1 normal S2 GASTROINTESTINAL: The abdomen is soft, mildly distended. Bowel sounds are present in all quadrants. Abdomen is nontender. There was tenderness over the left flank. BACK: There was a significant left flank hematoma noted. No midline tenderness or or step-off noted range of motion in flexion extension as well as rotation no signs of muscle spasm noted MUSCULOSKELETAL/EXTREMITIES: Pedal edema bilaterally. There is no evidence of gross deformity full range of motion is noted in the hips and shoulders SKIN: Pale and dry. There is no obvious evidence of any rash. There are no petechiae or cyanosis noted. NEUROLOGIC: Patient is awake alert and oriented x3 Medical Decision & Procedures ER Provider Diagnostic Interpretation: Radiology results as stated below per my review and radiologist interpretation: CT HEAD WITHOUT CONTRAST (CT) CLINICAL HISTORY: Head trauma HEAD PAIN COMPARISON STUDY: 01/29/2017 TECHNIQUE: Axial CT of the brain is performed from the vertex to the skull base. IV contrast was not administered for this examination. CT DOSE: FINDINGS: No intra or extra-axial mass lesions are visualized. There is no CT evidence of acute cortical infarction. There is no evidence of midline shift. There is no acute hemorrhage. No calvarial fractures are visualized. There are patchy white matter hypodensities likely on a small vessel basis. There is no evidence of pathologic ventricular dilatation. There is a small left maxillary sinus air-fluid level. IMPRESSION: Interval development of a small left maxillary sinus air-fluid level. Otherwise no change. No acute intracranial findings. Electronically signed by: Norris Jasso M.D. 04/05/2017 3:21 PM Dictated Date/Time: 04/05/2017 3:20 PM CHEST ONE VIEW PORTABLE CLINICAL HISTORY: Sepsis COMPARISON STUDY: 03/12/2017 FINDINGS: The cardiac and mediastinal contours are normal. There is no evidence of focal pulmonary consolidation. There is no evidence of failure. No pleural effusions are visualized.[ There is calcification of the mitral valve annulus. Slightly prominent basilar markings remain stable. IMPRESSION: No active disease in the chest. Electronically signed by: Norris Jasso M.D. 04/05/2017 2:35 PM Dictated Date/Time: 04/05/2017 2:[address] OF THE CERVICAL SPINE CLINICAL HISTORY: Neck pain status post trauma COMPARISON STUDY: No previous studies for comparison. CT DOSE: 3568.27 mGy.cm TECHNIQUE: CT scan of the cervical spine was performed from the skull base to the thoracic inlet. Images are reviewed in the axial, sagittal, and coronal planes. IV contrast was not administered for this examination. FINDINGS: The visualized portions of the lung apices reveal no evidence of pneumothorax. The prevertebral soft tissues are normal. No fractures or subluxations are visualized. There are multilevel degenerative changes IMPRESSION: Moderate multilevel degenerative change. No evidence of acute fracture or traumatic subluxation. Electronically signed by: Norris Jasso M.D. 04/05/2017 3:33 PM Dictated Date/Time: 04/05/2017 3:[address] ABD/PELVIS IV CONTRAST ONLY CLINICAL HISTORY: Trauma. Flank pain. Left flank hematoma. COMPARISON STUDY: 03/15/2017 TECHNIQUE: Following the IV administration of 94 mL of Optiray-320, CT scan of the abdomen and pelvis was performed from the lung bases to the proximal femurs. Images are reviewed in the axial, sagittal, and coronal planes. IV contrast was administered without complication. CT DOSE: FINDINGS: Lower chest: The heart is enlarged. There are coronary artery calcifications. There are nonspecific left basilar airspace opacities, atelectatic versus inflammatory versus aspiration. Liver: The contrast-enhanced liver is normal in size, contour, and attenuation. There is no intrahepatic biliary ductal dilatation. The hepatic veins and portal veins are patent. Gallbladder: Unremarkable. Spleen: Normal in size and attenuation. Pancreas: Unremarkable. Adrenal glands: There is stable adrenal gland thickening. Kidneys: There is symmetric renal cortical enhancement. The kidneys are normal in size without hydronephrosis. Bowel: There are no transition zones indicate bowel obstruction. There is no acute appendicitis. There is extensive colonic diverticulosis. Minimal diverticulitis is suspected. Peritoneum: There is no intraperitoneal free air or abdominal ascites. Vasculature: The abdominal aorta is normal in course and caliber. Adenopathy: None. Pelvic viscera: There is a tiny droplet of air within the bladder, likely iatrogenic Skeletal structures: No acute fractures are visualized. Degenerative changes are present within the spine and hips. There is a multiloculated hematoma within the soft tissues of the left posterior lateral abdominal wall measuring 13 x 6 x 9 cm. IMPRESSION: 1. Left posterior lateral abdominal wall hematoma measuring 13 x 9 x 6 cm 2. Colonic diverticulosis. Minimal diverticulitis. 3. No evidence of solid organ injury 4. Tiny droplet of air within the bladder, likely iatrogenic 5. Left lower lobe pulmonary airspace opacities, atelectatic versus inflammatory versus aspiration. Electronically signed by: Norris Jasso M.D. 04/05/2017 3:32 PM Dictated Date/Time: 04/05/2017 3:21 PM Laboratory Results 04/05/17 13:41 Red Blood Count 3.10, Mean Corpuscular Volume 88.1, Mean Corpuscular Hemoglobin 28.1, Mean Corpuscular Hemoglobin Concent 31.9, Mean Platelet Volume 11.2, Neutrophils (%) (Auto) 88.0, Lymphocytes (%) (Auto) 3.9, Monocytes (%) (Auto) 7.3, Eosinophils (%) (Auto) 0.2, Basophils (%) (Auto) 0.0, Neutrophils # (Auto) 7.64, Lymphocytes # (Auto) 0.34, Monocytes # (Auto) 0.63, Eosinophils # (Auto) 0.02, Basophils # (Auto) 0.00 04/05/17 13:41 Test 04/05/17 13:41 04/05/17 14:06 04/05/17 14:07 04/05/17 14:14 White Blood Count 8.68 K/uL (4.8-10.8) Red Blood Count 3.10 M/uL (4.2-5.4) Hemoglobin 8.7 g/dL (12.0-16.0) Hematocrit 27.3 % (37-47) Mean Corpuscular Volume 88.1 fL (80-100) Mean Corpuscular Hemoglobin 28.1 pg (25-34) Mean Corpuscular Hemoglobin Concent 31.9 g/dl (32-36) Platelet Count 237 K/uL (130-400) Mean Platelet Volume 11.2 fL (7.4-10.4) Neutrophils (%) (Auto) 88.0 % Lymphocytes (%) (Auto) 3.9 % Monocytes (%) (Auto) 7.3 % Eosinophils (%) (Auto) 0.2 % Basophils (%) (Auto) 0.0 % Neutrophils # (Auto) 7.64 K/uL (1.4-6.5) Lymphocytes # (Auto) 0.34 K/uL (1.2-3.4) Monocytes # (Auto) 0.63 K/uL (0.11-0.59) Eosinophils # (Auto) 0.02 K/uL (0-0.5) Basophils # (Auto) 0.00 K/uL (0-0.2) RDW Standard Deviation 50.8 fL (36.4-46.3) RDW Coefficient of Variation 15.7 % (11.5-14.5) Immature Granulocyte % (Auto) 0.6 % Immature Granulocyte # (Auto) 0.05 K/uL (0.00-0.02) Erythrocyte Sedimentation Rate 12 mm/hr (0-21) Est Creatinine Clear Calc Drug Dose 32.8 ml/min Estimated GFR () 37.7 Estimated GFR (Non- 32.6 BUN/Creatinine Ratio 15.9 (10-20) Calcium Level 8.6 mg/dl (8.5-10.1) Phosphorus Level 3.0 mg/dl (2.5-4.9) Magnesium Level 1.9 mg/dl (1.8-2.4) Total Bilirubin 1.5 mg/dl (0.2-1) Aspartate Amino Transf (AST/SGOT) 10 U/L (15-37) Alanine Aminotransferase (ALT/SGPT) 7 U/L (12-78) Alkaline Phosphatase 117 U/L (45-117) Total Creatine Kinase 37 U/L (26-192) Creatine Kinase MB 1.1 ng/ml (0.5-3.6) Creatine Kinase MB Ratio 3.0 (0-3.0) Troponin I < 0.015 ng/ml (0-0.045) C-Reactive Protein 4.58 mg/dl (0-0.29) Pro-B-Type Natriuretic Peptide 727 pg/ml (0-1800) Total Protein 6.1 gm/dl (6.4-8.2) Albumin 3.2 gm/dl (3.4-5.0) Globulin 2.9 gm/dl (2.5-4.0) Albumin/Globulin Ratio 1.1 (0.9-2) Lipase 157 U/L (73-393) Venous Blood pH 7.38 (7.36-7.41) Venous Blood Partial Pressure CO2 41 mmHg (38.0-50.0) Venous Blood Partial Pressure O2 18 mmHg Venous Blood HCO3 24 mmol/L Venous Blood Oxygen Saturation < 60.0 % Venous Blood Base Excess -1.0 mmol/L Activated Partial Thromboplast Time 57.7 SECONDS (21.0-31.0) Partial Thromboplastin Ratio 2.2 Bedside Hemoglobin 8.2 g/dl (12.0-16.0) Bedside Hematocrit 24 % (37-47) Bedside Sodium 134 mEq/L (135-144) Bedside Potassium 4.1 mEq/L (3.3-5.0) Bedside Chloride 98 mEq/L (101-112) Bedside Total CO2 23 mEq/l (24-31) Anion Gap 18.0 mmol/L (16-25) Bedside Blood Urea Nitrogen 23 mg/dl (7-18) Bedside Creatinine 1.4 mg/dl (0.6-1.3) Bedside Glucose (other) 124 mg/dl (70-99) Bedside Ionized Calcium (Yessenia) 1.22 mmol/l (1.12-1.32) Test 04/05/17 14:20 04/05/17 16:25 Bedside Lactic Acid Venous 1.33 mmol/L (0.90-1.70) Urine Color DK YELLOW Urine Appearance CLOUDY (CLEAR) Urine pH 5.0 (4.5-7.5) Urine Specific [place] 1.022 (1.000-1.030) Urine Protein NEG (NEG) Urine Glucose (UA) NEG (NEG) Urine Ketones TRACE (NEG) Urine Occult Blood NEG (NEG) Urine Nitrite NEG (NEG) Urine Bilirubin NEG (NEG) Urine Urobilinogen NEG (NEG) Urine Leukocyte Esterase NEG (NEG) Urine WBC (Auto) 1-5 /hpf (0-5) Urine RBC (Auto) 0-4 /hpf (0-4) Urine Hyaline Casts (Auto) 10-30 /lpf (0-5) Urine Epithelial Cells (Auto) >30 /lpf (0-5) Urine Bacteria (Auto) NEG (NEG) Urine Renal Epithelial Cells /lpf (0-5) Urine Crystals CALCIUM OXALATE (NONE Urine Pathogenic Casts 0-3 GRANULAR CASTS /lpf (0) Urine Yeast (Auto) (NONE PRSENT) Laboratory results per my review. Medications Administered Medications (Trade) Dose Ordered Sig/Geronimo Route Start Time Stop Time Status Last Admin Dose Admin Sodium Chloride 1,000 ml @ 999 mls/hr Q1H1M ONCE IV 04/05/17 13:51 04/05/17 14:51 DC 04/05/17 14:10 999 MLS/HR Phytonadione 5 mg/ Sodium Chloride 50.5 ml @ 101 mls/hr ONE ONCE IV 04/05/17 15:00 04/05/17 15:29 DC 04/05/17 15:33 101 MLS/HR ECG Indication: weakness Rate (beats per minute): 57 Rhythm: sinus bradycardia Findings: no acute ischemic change, no ectopy Comparison ECG Date: 03/05/2017 Change: no significant change ED Course 1344: The patient was evaluated in room A11B. A complete history and physical examination were performed. 1351: NSS 1000 ml @ 999 mls/hr IV 1500: Phytonadione 5 mg/Sodium Chloride 50.5 ml @ 101 mls/hr IV 1531: I spoke with Dr. Zamora. We discussed the patients results and treatment plan. The patient will be evaluated by the [facility] for further management. 1533: I reassessed the patient at this time. She is feeling better and resting comfortably. I discussed the results and treatment plan with the patient and her family. I answered all pertaining questions that they had. They expressed understanding and verbalized agreement. Medical Decision Differential diagnosis: Etiologies such as metabolic, infection, hypo/hyperglycemia, electrolyte abnormalities, cardiac sources, intracerebral event, toxicologic, neurologic, as well as others were entertained. Medication Reconciliation: I attest that I have personally reviewed the patient' s current medications list. The patient is an 81-year-old female who presented to the emergency department for an evaluation of generalized weakness. The patient was found have hypotension. She has a history of being on Coumadin and has had multiple falls recently including an injury to her left flank. She had a very significant flank hematoma. She was found have hypotension as well as anemia. At this time I feel her overall condition is secondary to blood loss because of the hematoma. She was treated with IV fluids blood transfusion and fresh frozen plasma. She was also given a dose of vitamin K. I discussed the patient's laboratory and radiographic studies with her and her family. I also discussed her [facility] They've agreed to evaluate the patient in the emergency department for further management and disposition. Consults Time Called: 1528 Consulting Physician: Dr. Zamora Returned Call: [address] Zamora. We discussed the patients results and treatment plan. The patient will be evaluated by the [facility] for further management. Impression Primary Impression: Anemia Additional Impressions: Hypotension Hematoma of left flank Elevated INR Critical Care I have personally spent greater than 45 minutes of critical care time in the direct management of this patient. This includes bedside care, interpretation of diagnostic studies, and testing, discussion with consultants, patient, and family members, and other required patient management activities. This 45 minutes is in excess of all separately billable procedures. Scribe Attestation The scribe's documentation has been prepared under my direction and personally reviewed by me in its entirety. I confirm that the note above accurately reflects all work, treatment, procedures, and medical decision making performed by me. Departure Information Dispostion Being Evaluated By Hospitalist Edwige Dominique DO (PCP) Patient Instructions My [facility] Problem Qualifiers Primary Impression: Anemia Anemia type: unspecified type Qualified Codes: D64.9 - Anemia, unspecified Additional Impressions: Hypotension Hypotension type: unspecified hypotension type Qualified Codes: I95.9 - Hypotension, unspecified Hematoma of left flank Encounter type: initial encounter Qualified Codes: S30.1XXA - Contusion of abdominal wall, initial encounter
[2017-04-05 14:49] LABS: INR 7.1 (0.9-1.1)
[2017-04-05] MEDS ORDERED: PHYTONADIONE INJ 5 MG in SODIUM CHLORIDE 0.9% 50ML 50 ML IV ONE (15:00)
[2017-04-05] MEDS ORDERED: DIPH25CA5 PO (15:07)
[2017-04-05] MEDS ORDERED: WARF3TAB6 PO (15:07)
[2017-04-05] MEDS ORDERED: MELA1TAB5 PO (15:07)
[2017-04-05] MEDS ORDERED: FRS/40 PO (15:07)
--- NOTE | 2017-04-05 15:22 | DIAGNOSTIC IMAGING REPORT ---
CT HEAD WITHOUT CONTRAST (CT) CLINICAL HISTORY: Head trauma HEAD PAIN COMPARISON STUDY: 01/29/2017 TECHNIQUE: Axial CT of the brain is performed from the vertex to the skull base. IV contrast was not administered for this examination. CT DOSE: FINDINGS: No intra or extra-axial mass lesions are visualized. There is no CT evidence of acute cortical infarction. There is no evidence of midline shift. There is no acute hemorrhage. No calvarial fractures are visualized. There are patchy white matter hypodensities likely on a small vessel basis. There is no evidence of pathologic ventricular dilatation. There is a small left maxillary sinus air-fluid level. IMPRESSION: Interval development of a small left maxillary sinus air-fluid level. Otherwise no change. No acute intracranial findings. Electronically signed by: Norris Jasso M.D. 04/05/2017 3:21 PM Dictated Date/Time: 04/05/2017 3:20 PM
--- NOTE | 2017-04-05 15:33 | DIAGNOSTIC IMAGING REPORT ---
CT ABD/PELVIS IV CONTRAST ONLY CLINICAL HISTORY: Trauma. Flank pain. Left flank hematoma. COMPARISON STUDY: 03/15/2017 TECHNIQUE: Following the IV administration of 94 mL of Optiray-320, CT scan of the abdomen and pelvis was performed from the lung bases to the proximal femurs. Images are reviewed in the axial, sagittal, and coronal planes. IV contrast was administered without complication. CT DOSE: FINDINGS: Lower chest: The heart is enlarged. There are coronary artery calcifications. There are nonspecific left basilar airspace opacities, atelectatic versus inflammatory versus aspiration. Liver: The contrast-enhanced liver is normal in size, contour, and attenuation. There is no intrahepatic biliary ductal dilatation. The hepatic veins and portal veins are patent. Gallbladder: Unremarkable. Spleen: Normal in size and attenuation. Pancreas: Unremarkable. Adrenal glands: There is stable adrenal gland thickening. Kidneys: There is symmetric renal cortical enhancement. The kidneys are normal in size without hydronephrosis. Bowel: There are no transition zones indicate bowel obstruction. There is no acute appendicitis. There is extensive colonic diverticulosis. Minimal diverticulitis is suspected. Peritoneum: There is no intraperitoneal free air or abdominal ascites. Vasculature: The abdominal aorta is normal in course and caliber. Adenopathy: None. Pelvic viscera: There is a tiny droplet of air within the bladder, likely iatrogenic Skeletal structures: No acute fractures are visualized. Degenerative changes are present within the spine and hips. There is a multiloculated hematoma within the soft tissues of the left posterior lateral abdominal wall measuring 13 x 6 x 9 cm. IMPRESSION: 1. Left posterior lateral abdominal wall hematoma measuring 13 x 9 x 6 cm 2. Colonic diverticulosis. Minimal diverticulitis. 3. No evidence of solid organ injury 4. Tiny droplet of air within the bladder, likely iatrogenic 5. Left lower lobe pulmonary airspace opacities, atelectatic versus inflammatory versus aspiration. Electronically signed by: Norris Jasso M.D. 04/05/2017 3:32 PM Dictated Date/Time: 04/05/2017 3:21 PM
--- NOTE | 2017-04-05 15:35 | DIAGNOSTIC IMAGING REPORT ---
CT OF THE CERVICAL SPINE CLINICAL HISTORY: Neck pain status post trauma COMPARISON STUDY: No previous studies for comparison. CT DOSE: 3568.27 mGy.cm TECHNIQUE: CT scan of the cervical spine was performed from the skull base to the thoracic inlet. Images are reviewed in the axial, sagittal, and coronal planes. IV contrast was not administered for this examination. FINDINGS: The visualized portions of the lung apices reveal no evidence of pneumothorax. The prevertebral soft tissues are normal. No fractures or subluxations are visualized. There are multilevel degenerative changes IMPRESSION: Moderate multilevel degenerative change. No evidence of acute fracture or traumatic subluxation. Electronically signed by: Norris Jasso M.D. 04/05/2017 3:33 PM Dictated Date/Time: 04/05/2017 3:32 PM
[2017-04-05 16:43] LABS: URINE APPEARANCE CLOUDY (CLEAR); URINE BILIRUBIN NEG (NEG); URINE COLOR DK YELLOW; URINE EPITHELIAL CELL AUTO >30 /lpf (0-5); URINE NITRITE NEG (NEG); URINE SPECIFIC GRAVITY 1.022 (1.000-1.030); UROBILINOGEN NEG (NEG); ZZURINE CULT IF INDIC CATH YES
[2017-04-05 16:49] LABS: MANUAL MICROSCOPIC REQUIRED? NO; REVIEW REQ? YES
[2017-04-05 17:02] LABS: URINE PATH CASTS 0-3 GRANULAR CASTS /lpf (0)
[2017-04-05] MEDS ORDERED: LEValbuterol HFA 15GM INHALER INH PRN (17:45)
[2017-04-05] MEDS ORDERED: ACETAMINOPHEN 325 MG TAB PO PRN (17:45)
[2017-04-05] MEDS ORDERED: ACETAMINOPHEN IV 100 ML IV PRN (18:00)
[2017-04-05 18:22] LABS: HEMATOCRIT 23.5 % (37-47)
[2017-04-05] MEDS ORDERED: CEFTRIAXONE SOD INJ 1 GM in DEXTROSE 5% ADD-VANTAGE 50ML 50 ML IV SCH (20:00)
--- NOTE | 2017-04-05 20:21 | History and Physical ---
History & Physical Date & Time of Service: Apr 05, 2017 at 20:03 Chief Complaint: Elevated Inr, Hematoma Of Left Flank Primary Care Physician: dEwige Mason DO History of Present Illness Source: patient The patient is an 81-year-old female who presents to the emergency department with worsening lethargy, generalized fatigue, flulike symptoms, decreased oral intake due to nausea, and 3 episodes of falls within the past couple days. She fell earlier today while at the [facility], was found to be hypotensive, and sent to the ED for further evaluation. She does have history of UTIs in the past, he has presently is on warfarin for atrial fibrillation. Family History No pertinent family history Social History Smoking Status: Never Smoker Smokeless Tobacco Use: No Alcohol Use: none Drug Use: none Marital Status: Housing status: lives with family Occupational Status: retired Multi-Drug Resistant Organisms History of MDRO: No Allergies Coded Allergies: Succinylcholine (Verified Allergy, Severe, 04/05/17) Home Medications Scheduled Amiodarone Hcl (Cordarone), 200 MG PO DAILY Artificial Tear Ointment (Eye Lubricant), 1 APPLN OPB HS Carbidopa-Levodopa (Sinemet Cr 50-200 mg), 1 TAB PO HS Carbidopa/Levodopa (Sinemet 25MG/100MG), 3 TABS PO QID Donepezil Hydrochloride (Donepezil Hcl), 5 MG PO DAILY Lisinopril (Prinivil), 5 MG PO DAILY Memantine (Namenda), 5 MG PO BID Ranitidine (Zantac), 150 MG PO BID Selegiline HCl (Selegiline HCl), 5 MG PO BID Warfarin Sod (Jantoven), 2.5 MG PO 2XWK Warfarin Sod (Jantoven), 3 MG PO 5XWK Scheduled PRN Carbidopa-Levodopa (Carbidopa/Levodopa Odt), 25-250 MG PO TID PRN for PARKINSON' S CONTROL Diphenhydramine Hcl (Benadryl), Unknown Dose PO HS PRN for Sleep Furosemide (Lasix), 40 MG PO DAILY PRN for FLUID RETENTION Levalbuterol Tartrate (Levalbuterol Tartrate Hfa), 2 PUFFS INH DAILY PRN for SOB /Wheezing Melatonin (Kp Melatonin), Unknown Dose PO HS PRN for SL Review of Systems The patient denies palpitations, sore throat, fevers, chills, sweats, abdominal pain, pelvic pain, blood in urine or stool, dysuria, urinary frequency or urgency, headache, memory loss, rash, focal weakness, night sweats , or allergy symptoms. The review of systems is otherwise negative other than for that already noted above, and at least 10 systems have been reviewed. Physical Exam Vital Signs Date Time Temp Pulse Resp B/P (MAP) Pulse Ox O2 Delivery O2 Flow Rate FiO2 04/05/17 18:45 36.5 71 16 137/58 100 04/05/17 17:48 36.5 62 16 114/59 100 2.0 04/05/17 17:29 62 18 122/67 100 Nasal Cannula 2.0 04/05/17 17:20 100 Nasal Cannula 2.0 04/05/17 17:08 36.5 58 18 120/47 100 2.0 04/05/17 16:49 36.5 58 20 108/56 93 04/05/17 16:31 59 20 120/99 94 Room Air 2.0 Nasal Cannula 04/05/17 16:00 57 20 115/65 93 Room Air 04/05/17 15:38 60 18 123/56 93 Nasal Cannula 3.0 04/05/17 15:20 96 Room Air 04/05/17 14:59 58 20 104/65 98 Nasal Cannula 2.0 04/05/17 14:21 61 102/50 04/05/17 13:46 60 04/05/17 13:45 36.6 65 18 87/56 97 Room Air The patient is awake, well-developed and adequately nourished, alert and oriented 3, normocephalic and atraumatic, lying in bed and in no acute distress. HEENT--PERRL, EOMI, mucous membranes and oropharynx dry. Neck--supple, no JVD or bruits, thyroid normal, trachea midline, no adenopathy. Heart--normal S1 and S2, no extra beats, no murmurs, rubs or gallops. Lungs--clear bilaterally but diminished throughout, no respiratory distress, no accessory muscle use. Abdomen--normal bowel sounds and soft, nontender and nondistended, no hernias or masses, no organomegaly. Extremities--no cyanosis, clubbing. There is bilaterally pretibial 2+ pitting edema. There are good distal pulses b/l. Dermatologic--large left flank hematoma with no significant tenderness or palpable underlying bony abnormality. Neurologic--cranial nerves II through XII grossly intact. Rheumatologic--normal range of motion for age Psychiatric--normal affect. Diagnostics Laboratory Results Results Past 24 Hours Test 04/05/17 13:41 04/05/17 14:06 04/05/17 14:07 04/05/17 14:14 Range/Units White Blood Count 8.68 4.8-10.8 K/uL Red Blood Count 3.10 4.2-5.4 M/uL Hemoglobin 8.7 12.0-16.0 g/dL Hematocrit 27.3 37-47 % Mean Corpuscular Volume 88.1 80-100 fL Mean Corpuscular Hemoglobin 28.1 25-34 pg Mean Corpuscular Hemoglobin Concent 31.9 32-36 g/dl Platelet Count 237 130-400 K/uL Mean Platelet Volume 11.2 7.4-10.4 fL Neutrophils (%) (Auto) 88.0 % Lymphocytes (%) (Auto) 3.9 % Monocytes (%) (Auto) 7.3 % Eosinophils (%) (Auto) 0.2 % Basophils (%) (Auto) 0.0 % Neutrophils # (Auto) 7.64 1.4-6.5 K/uL Lymphocytes # (Auto) 0.34 1.2-3.4 K/uL Monocytes # (Auto) 0.63 0.11-0.59 K/uL Eosinophils # (Auto) 0.02 0-0.5 K/uL Basophils # (Auto) 0.00 0-0.2 K/uL RDW Standard Deviation 50.8 36.4-46.3 fL RDW Coefficient of Variation 15.7 11.5-14.5 % Immature Granulocyte % (Auto) 0.6 % Immature Granulocyte # (Auto) 0.05 0.00-0.02 K/uL Erythrocyte Sedimentation Rate 12 0-21 mm/hr Sodium Level 134 136-145 mmol/L Potassium Level 4.5 3.5-5.1 mmol/L Chloride Level 100 98-107 mmol/L Carbon Dioxide Level 25 21-32 mmol/L Anion Gap 9.0 18.0 16-25 mmol/L Blood Urea Nitrogen 24 7-18 mg/dl Creatinine 1.50 0.60-1.20 mg/dl Est Creatinine Clear Calc Drug Dose 32.8 ml/min Estimated GFR () 37.7 Estimated GFR (Non- 32.6 BUN/Creatinine Ratio 15.9 10-20 Random Glucose 148 70-99 mg/dl Calcium Level 8.6 8.5-10.1 mg/dl Phosphorus Level 3.0 2.5-4.9 mg/dl Magnesium Level 1.9 1.8-2.4 mg/dl Total Bilirubin 1.5 0.2-1 mg/dl Aspartate Amino Transf (AST/SGOT) 10 15-37 U/L Alanine Aminotransferase (ALT/SGPT) 7 12-78 U/L Alkaline Phosphatase 117 45-117 U/L Total Creatine Kinase 37 26-192 U/L Creatine Kinase MB 1.1 0.5-3.6 ng/ml Creatine Kinase MB Ratio 3.0 0-3.0 Troponin I < 0.015 0-0.045 ng/ml C-Reactive Protein 4.58 0-0.29 mg/dl Pro-B-Type Natriuretic Peptide 727 0-1800 pg/ml Total Protein 6.1 6.4-8.2 gm/dl Albumin 3.2 3.4-5.0 gm/dl Globulin 2.9 2.5-4.0 gm/dl Albumin/Globulin Ratio 1.1 0.9-2 Lipase 157 73-393 U/L Venous Blood pH 7.38 7.36-7.41 Venous Blood Partial Pressure CO2 41 38.0-50.0 mmHg Venous Blood Partial Pressure O2 18 mmHg Venous Blood HCO3 24 mmol/L Venous Blood Oxygen Saturation < 60.0 % Venous Blood Base Excess -1.0 mmol/L Prothrombin Time 81.9 9.0-12.0 SECONDS Prothromb Time International Ratio 7.1 0.9-1.1 Activated Partial Thromboplast Time 57.7 21.0-31.0 SECONDS Partial Thromboplastin Ratio 2.2 Bedside Hemoglobin 8.2 12.0-16.0 g/dl Bedside Hematocrit 24 37-47 % Bedside Sodium 134 135-144 mEq/L Bedside Potassium 4.1 3.3-5.0 mEq/L Bedside Chloride 98 101-112 mEq/L Bedside Total CO2 23 24-31 mEq/l Bedside Blood Urea Nitrogen 23 7-18 mg/dl Bedside Creatinine 1.4 0.6-1.3 mg/dl Bedside Glucose (other) 124 70-99 mg/dl Bedside Ionized Calcium (Yessenia) 1.22 1.12-1.32 mmol/l Test 04/05/17 14:20 04/05/17 16:25 04/05/17 18:07 04/05/17 20:00 Range/Units Bedside Lactic Acid Venous 1.33 0.90-1.70 mmol/L Urine Color DK YELLOW Urine Appearance CLOUDY CLEAR Urine pH 5.0 4.5-7.5 Urine Specific Russell 1.022 1.000-1.030 Urine Protein NEG NEG Urine Glucose (UA) NEG NEG Urine Ketones TRACE NEG Urine Occult Blood NEG NEG Urine Nitrite NEG NEG Urine Bilirubin NEG NEG Urine Urobilinogen NEG NEG Urine Leukocyte Esterase NEG NEG Urine WBC (Auto) 1-5 0-5 /hpf Urine RBC (Auto) 0-4 0-4 /hpf Urine Hyaline Casts (Auto) 10-30 0-5 /lpf Urine Epithelial Cells (Auto) >30 0-5 /lpf Urine Bacteria (Auto) NEG NEG Urine Renal Epithelial Cells 0-5 /lpf Urine Crystals CALCIUM OXALATE NONE PRSENT Urine Pathogenic Casts 0-3 GRANULAR CASTS 0 /lpf Urine Yeast (Auto) NONE PRSENT Hemoglobin 7.7 12.0-16.0 g/dL Hematocrit 23.5 37-47 % Microbiology Results 04/05/17 Blood Culture, Received Pending 04/05/17 Blood Culture, Received Pending 04/05/17 Urine Culture, Received Pending Diagnostic Radiology Patient Name: KEISHA CARDENAS Unit Number: [id number] Dictated: 04/05/171519 Transcribed: 04/05/171519 ARG Printed Date/Time: [~ rep prt dt]/[~ rep prt tm] [~ rep ct labl] - [~ rep ct ivnm] [facility] [place] [address] Dictated: 04/05/171519 Transcribed: 04/05/171519 ARG Printed Date/Time: [~ rep prt dt]/[~ rep prt tm] [~ rep ct labl] - [~ rep ct ivnm] CT HEAD WITHOUT CONTRAST (CT) CLINICAL HISTORY: Head trauma HEAD PAIN COMPARISON STUDY: 01/29/2017 TECHNIQUE: Axial CT of the brain is performed from the vertex to the skull base. IV contrast was not administered for this examination. CT DOSE: FINDINGS: No intra or extra-axial mass lesions are visualized. There is no CT evidence of acute cortical infarction. There is no evidence of midline shift. There is no acute hemorrhage. No calvarial fractures are visualized. There are patchy white matter hypodensities likely on a small vessel basis. There is no evidence of pathologic ventricular dilatation. There is a small left maxillary sinus air-fluid level. IMPRESSION: Interval development of a small left maxillary sinus air-fluid level. Otherwise no change. No acute intracranial findings. Electronically signed by: Norris Jasso M.D. 04/05/2017 3:21 PM Dictated Date/Time: 04/05/2017 3:20 PM The status of this report is Signed. Draft = Not yet reviewed or approved by Radiologist. Signed = Reviewed and approved by Radiologist. <AttendingPhy></AttendingPhy> <FamilyPhy>Edwige Mason DO</FamilyPhy> < PrimaryPhy>Edwige Mason DO</PrimaryPhy> <UnitNumber>[id number]</UnitNumber > <VisitNumber>[id number]</VisitNumber> <PatientName>ADAMTereseKEISHA</PatientName > <DateOfBirth>1935</DateOfBirth> <Location>[facility]</Location> <ServiceDate> 04/05/17</ServiceDate> <MNE>ESINDI</MNE> <OrderingPhy>Delano Loera D.O.</ OrderingPhy> <OrderingPhyMNE>f rep ord dr benavides</OrderingPhyMNE> <DictatingPhyMNE> f rep dict dr benavides</DictatingPhyMNE> <CCListMNE>f rep ct kennedy</CCListMNE> < AdmittingPhyMNE>f pt admit dr benavides</AdmittingPhyMNE> <AttendingPhyMNE>f pt attend dr benavides</AttendingPhyMNE> <ConsultingPhyMNE>f pt consult dr benavides</ConsultingPhyMNE> <FamilyPhyMNE>f pt fam dr benavides</FamilyPhyMNE> <OtherPhyMNE>f pt other dr benavides</OtherPhyMNE> < PrimaryPhyMNE>f pt prim care dr benavides</PrimaryPhyMNE> <ReferringPhyMNE>f pt referring dr benavides</ReferringPhyMNE> Patient Name: KEISHA CARDENAS Unit Number: [id number] Dictated: 04/05/171434 Transcribed: 04/05/171434 ARG Printed Date/Time: [~ rep prt dt]/[~ rep prt tm] [~ rep ct labl] - [~ rep ct ivnm] [facility] Radiology Department [place], [place] [id number] Dictated: 04/05/171434 Transcribed: 04/05/171434 ARG Printed Date/Time: [~ rep prt dt]/[~ rep prt tm] [~ rep ct labl] - [~ rep ct ivnm] CHEST ONE VIEW PORTABLE CLINICAL HISTORY: Sepsis COMPARISON STUDY: 03/12/2017 FINDINGS: The cardiac and mediastinal contours are normal. There is no evidence of focal pulmonary consolidation. There is no evidence of failure. No pleural effusions are visualized.[ There is calcification of the mitral valve annulus. Slightly prominent basilar markings remain stable. IMPRESSION: No active disease in the chest. Electronically signed by: Norris Jasso M.D. 04/05/2017 2:35 PM Dictated Date/Time: 04/05/2017 2:35 PM The status of this report is Signed. Draft = Not yet reviewed or approved by Radiologist. Signed = Reviewed and approved by Radiologist. <AttendingPhy></AttendingPhy> <FamilyPhy>Edwige Mason, DO</FamilyPhy> < PrimaryPhy>Edwige Mason, DO</PrimaryPhy> <UnitNumber>[id number]</UnitNumber > <VisitNumber>[id number]</VisitNumber> <PatientName>KEISHA CARDENAS</PatientName > <DateOfBirth>1935</DateOfBirth> <Location>[facility]</Location> <ServiceDate> 04/05/17</ServiceDate> <MNE>ESINDI</MNE> <OrderingPhy>Delano Loera D.O.</ OrderingPhy> <OrderingPhyMNE>f rep ord dr benavides</OrderingPhyMNE> <DictatingPhyMNE> f rep dict dr benavides</DictatingPhyMNE> <CCListMNE>f rep ct mne</CCListMNE> < AdmittingPhyMNE>f pt admit dr benavides</AdmittingPhyMNE> <AttendingPhyMNE>f pt attend dr benavides</AttendingPhyMNE> <ConsultingPhyMNE>f pt consult dr benavides</ConsultingPhyMNE> <FamilyPhyMNE>f pt fam dr benavides</FamilyPhyMNE> <OtherPhyMNE>f pt other dr benavides</OtherPhyMNE> < PrimaryPhyMNE>f pt prim care dr benavides</PrimaryPhyMNE> <ReferringPhyMNE>f pt referring dr benavides</ReferringPhyMNE> Patient Name: KEISHA CARDENAS Unit Number: [id number] Dictated: 04/05/171531 Transcribed: 04/05/17 153 ARG Printed Date/Time: [~ rep prt dt]/[~ rep prt tm] [~ rep ct labl] - [~ rep ct ivnm] [facility] [place] [address] Dictated: 04/05/171531 Transcribed: 04/05/17 153 ARG Printed Date/Time: [~ rep prt dt]/[~ rep prt tm] [~ rep ct labl] - [~ rep ct ivnm] CT OF THE CERVICAL SPINE CLINICAL HISTORY: Neck pain status post trauma COMPARISON STUDY: No previous studies for comparison. CT DOSE: 3568.27 mGy.cm TECHNIQUE: CT scan of the cervical spine was performed from the skull base to the thoracic inlet. Images are reviewed in the axial, sagittal, and coronal planes. IV contrast was not administered for this examination. FINDINGS: The visualized portions of the lung apices reveal no evidence of pneumothorax. The prevertebral soft tissues are normal. No fractures or subluxations are visualized. There are multilevel degenerative changes IMPRESSION: Moderate multilevel degenerative change. No evidence of acute fracture or traumatic subluxation. Electronically signed by: Norris Jasso M.D. 04/05/2017 3:33 PM Dictated Date/Time: 04/05/2017 3:32 PM The status of this report is Signed. Draft = Not yet reviewed or approved by Radiologist. Signed = Reviewed and approved by Radiologist. <AttendingPhy></AttendingPhy> <FamilyPhy>Edwige Mason, DO</FamilyPhy> < PrimaryPhy>Edwige Mason, DO</PrimaryPhy> <UnitNumber>[id number]</UnitNumber > <VisitNumber>[id number]</VisitNumber> <PatientName>KEISHA CARDENAS</PatientName > <DateOfBirth>1935</DateOfBirth> <Location>[facility]</Location> <ServiceDate> 04/05/17</ServiceDate> <MNE>ESINDI</MNE> <OrderingPhy>Delano Loera D.O.</ OrderingPhy> <OrderingPhyMNE>f rep ord dr benavides</OrderingPhyMNE> <DictatingPhyMNE> f rep dict dr benavides</DictatingPhyMNE> <CCListMNE>f rep ct mne</CCListMNE> < AdmittingPhyMNE>f pt admit dr benavides</AdmittingPhyMNE> <AttendingPhyMNE>f pt attend dr benavides</AttendingPhyMNE> <ConsultingPhyMNE>f pt consult dr benavides</ConsultingPhyMNE> <FamilyPhyMNE>f pt fam dr benavides</FamilyPhyMNE> <OtherPhyMNE>f pt other dr benavides</OtherPhyMNE> < PrimaryPhyMNE>f pt prim care dr benavides</PrimaryPhyMNE> <ReferringPhyMNE>f pt referring dr benavides</ReferringPhyMNE> Patient Name: KEISHA CARDENAS Unit Number: [id number] Dictated: 04/05/17 1521 Transcribed: 04/05/17 1521 ARG Printed Date/Time: [~ rep prt dt]/[~ rep prt tm] [~ rep ct labl] - [~ rep ct ivnm] [facility] [place] [address] Dictated: 04/05/17 1521 Transcribed: 04/05/17 1521 ARG Printed Date/Time: [~ rep prt dt]/[~ rep prt tm] [~ rep ct labl] - [~ rep ct ivnm] [~ rep ct add3]] CT ABD/PELVIS IV CONTRAST ONLY CLINICAL HISTORY: Trauma. Flank pain. Left flank hematoma. COMPARISON STUDY: 03/15/2017 TECHNIQUE: Following the IV administration of 94 mL of Optiray-320, CT scan of the abdomen and pelvis was performed from the lung bases to the proximal femurs. Images are reviewed in the axial, sagittal, and coronal planes. IV contrast was administered without complication. CT DOSE: FINDINGS: Lower chest: The heart is enlarged. There are coronary artery calcifications. There are nonspecific left basilar airspace opacities, atelectatic versus inflammatory versus aspiration. Liver: The contrast-enhanced liver is normal in size, contour, and attenuation. There is no intrahepatic biliary ductal dilatation. The hepatic veins and portal veins are patent. Gallbladder: Unremarkable. Spleen: Normal in size and attenuation. Pancreas: Unremarkable. Adrenal glands: There is stable adrenal gland thickening. Kidneys: There is symmetric renal cortical enhancement. The kidneys are normal in size without hydronephrosis. Bowel: There are no transition zones indicate bowel obstruction. There is no acute appendicitis. There is extensive colonic diverticulosis. Minimal diverticulitis is suspected. Peritoneum: There is no intraperitoneal free air or abdominal ascites. Vasculature: The abdominal aorta is normal in course and caliber. Adenopathy: None. Pelvic viscera: There is a tiny droplet of air within the bladder, likely iatrogenic Skeletal structures: No acute fractures are visualized. Degenerative changes are present within the spine and hips. There is a multiloculated hematoma within the soft tissues of the left posterior lateral abdominal wall measuring 13 x 6 x 9 cm. IMPRESSION: 1. Left posterior lateral abdominal wall hematoma measuring 13 x 9 x 6 cm 2. Colonic diverticulosis. Minimal diverticulitis. 3. No evidence of solid organ injury 4. Tiny droplet of air within the bladder, likely iatrogenic 5. Left lower lobe pulmonary airspace opacities, atelectatic versus inflammatory versus aspiration. Electronically signed by: Norris Jasso M.D. 04/05/2017 3:32 PM Dictated Date/Time: 04/05/2017 3:21 PM The status of this report is Signed. Draft = Not yet reviewed or approved by Radiologist. Signed = Reviewed and approved by Radiologist. <AttendingPhy></AttendingPhy> <FamilyPhy>Edwige Mason, DO</FamilyPhy> < PrimaryPhy>Edwige Mason, DO</PrimaryPhy> <UnitNumber>[id number]</UnitNumber > <VisitNumber>[id number]</VisitNumber> <PatientName>LAYLAKEISHA ADAMS Sary</PatientName > <DateOfBirth>1935</DateOfBirth> <Location>[facility]</Location> <ServiceDate> 04/05/17</ServiceDate> <MNE>ESINDI</MNE> <OrderingPhy>Delano Loera D.O.</ OrderingPhy> <OrderingPhyMNE>f rep ord dr benavides</OrderingPhyMNE> <DictatingPhyMNE> f rep dict dr benavides</DictatingPhyMNE> <CCListMNE>f rep ct mne</CCListMNE> < AdmittingPhyMNE>f pt admit dr benavides</AdmittingPhyMNE> <AttendingPhyMNE>f pt attend dr benavides</AttendingPhyMNE> <ConsultingPhyMNE>f pt consult dr benavides</ConsultingPhyMNE> <FamilyPhyMNE>f pt fam dr benavides</FamilyPhyMNE> <OtherPhyMNE>f pt other dr benavides</OtherPhyMNE> < PrimaryPhyMNE>f pt prim care dr benavides</PrimaryPhyMNE> <ReferringPhyMNE>f pt referring dr benavides</ReferringPhyMNE> EKG EKG shows sinus bradycardia at 57 bpm, septal infarct, no acute ST-T changes Impression Assessment and Plan Anemia/status post fall with left flank hematoma/supratherapeutic INR--the patient will be admitted to the MICU. She is receiving 2 units of FFP and has received 5 mg of vitamin K IV in the emergency department. Repeat INR tonight, and repeat H&H at 6 hours intervals. Her hemoglobin has dropped from 8.7-7.7, and will receive 1 unit of packed red blood cells. Atrial fibrillation/hypertension/renal insufficiency--continue amiodarone 200 mg by mouth daily. Hold lisinopril 5 mg by mouth daily and reverse warfarin as noted above. Parkinson's/dementia--continue her usual dosing of Sinemet CR, Sinemet, donepezil and selegiline. GERD--continue ranitidine 150 mg by mouth twice a day. Level of Care Telemetry Advanced Directives Existing Advance Directive: No Existing Living Will: Yes Existing Power of Claim Clerk: Yes Resuscitation Status FULL RESUSCITATION VTE Prophylaxis VTE Risk Assessment Done? Y/N: Yes Risk Level: Moderate Given or contraindicated: Warfarin (Coumadin)
[2017-04-05] MEDS: NSS + 20MEQ KCL 1000ML 1,000 ML IV SCH (20:49)
[2017-04-05] MEDS: ONDANSETRON INJ 2 MG/ML 2 ML VIAL IV PRN (21:19)
[2017-04-05] MEDS: SELEGILINE HCL 5 MG CAP PO SCH (21:23)
[2017-04-05] MEDS: MEMANTINE 5 MG TAB PO SCH (21:23)
[2017-04-05] MEDS: CARBIDOPA/LEVODOPA 25/100MG TAB PO SCH (21:24)
[2017-04-05 22:36] LABS: INR 1.3 (0.9-1.1); PROTHROMBIN TIME (PATIENT) 14.3 SECONDS (9.0-12.0)
[2017-04-05] MEDS: CARBIDOPA/LEVODOPA 50/200MG EXT REL TAB PO SCH (23:14)
[2017-04-06] VITALS (12 sets, daily range): BP systolic 89–114; BP diastolic 42–86; PULSE 63–85; TEMP 36.5–37; O2SAT 95–100
[2017-04-06 00:14] LABS: HEMATOCRIT 21.3 % (37-47)
[2017-04-06] MEDS: CARBIDOPA/LEVODOPA 25/100MG TAB PO SCH ×4 (06:06→16:57)
[2017-04-06 06:59] LABS: EOS % 0.3 %; IG% 0.5 %; LYMPH % 8.5 %; LYMPH ABS # 0.54 K/uL (1.2-3.4); MEAN CELL VOLUME 87.6 fL (80-100); MEAN CORPUSCULAR HEMOGLOBIN 27.4 pg (25-34); MEAN CORPUSCULAR HGB CONC 31.3 g/dl (32-36); MEAN PLATELET VOLUME 11.6 fL (7.4-10.4); MONO % 13.3 %; NEUT % 77.4 %; PLATELET COUNT 201 K/uL (130-400); RED BLOOD COUNT 2.74 M/uL (4.2-5.4); WHITE BLOOD COUNT 6.39 K/uL (4.8-10.8)
[2017-04-06 07:16] LABS: INR 1.1 (0.9-1.1); PARTIAL THROMBOPLASTIN RATIO 1.2
[2017-04-06 07:25] LABS: BUN/CREATININE RATIO 19.9 (10-20); CALCIUM 8.1 mg/dl (8.5-10.1); MAGNESIUM 1.8 mg/dl (1.8-2.4)
[2017-04-06 07:37] LABS: COMPLETE YES
[2017-04-06] MEDS: MEMANTINE 5 MG TAB PO SCH ×2 (08:01→20:46)
[2017-04-06] MEDS: SELEGILINE HCL 5 MG CAP PO SCH ×2 (08:02→20:46)
[2017-04-06] MEDS: RANITIDINE HCL 150 MG TAB PO SCH (08:02)
[2017-04-06] MEDS: DONEPEZIL HCL 5 MG TAB PO SCH (08:02)
[2017-04-06] MEDS: AMIODARONE 200 MG TAB PO SCH (08:02)
--- NOTE | 2017-04-06 12:04 | Family Medicine Progress Note ---
Progress Note Date of Service Apr 06, 2017. Subjective Pt evaluation today including: conversation w/ patient [place] well today. Reports her Parkinson's has been declining over the last few years, occasionally her tremor is throughout the whole day. It is worse in the L arm but also present in the right. She usually sees Dr Alan. Does not have an appetite, barely ate her breakfast. Reports she has been falling more often, and now has a large bruise over L lower abdomen. Constitutional: + weakness, + fatigue, No fever, No chills, No sweats Eyes: No worsening of vision ENT: No hearing loss Respiratory: No cough, No sputum Cardiovascular: No chest pain Abdomen: No pain, No vomiting, No diarrhea, No constipation Musculoskeletal: No joint pain Female : No dysuria Neurologic: + memory loss (Occasionally), + balance problems (Falls often) Heme: + abnormal bleeding/bruising (has a large L bruise) All Other Systems: Reviewed and Negative Medications Current Inpatient Medications Medications (Trade) Dose Ordered Sig/Geronimo Route Start Time Stop Time Status Last Admin Dose Admin Ioversol (Optiray 320) 125 ml UD PRN IV 04/05/17 14:15 04/09/17 14:14 Potassium Chloride/Sodium Chloride 1,000 ml @ 75 mls/hr [id number] IV 04/05/17 20:00 05/05/17 19:59 04/05/17 20:49 75 MLS/HR Acetaminophen (Tylenol Tab) 650 mg Q4H PRN PO 04/05/17 17:45 05/05/17 17:44 Amiodarone HCl (Cordarone Tab) 200 mg DAILY PO 04/06/17 09:00 05/06/17 08:59 04/06/17 08:02 200 MG Carbidopa/Levodopa (Sinemet Cr 50/ 200MG Tab) 1 tab HS PO 04/05/17 21:00 05/05/17 20:59 04/05/17 23:14 1 TAB Carbidopa/Levodopa (Sinemet 25/ 100MG Tab) 3 tab DAILY@0600,1000,1200,1800 PO 04/05/17 19:30 05/05/17 19:29 04/06/17 10:21 3 TAB Donepezil HCl (Aricept Tab) 5 mg DAILY PO 04/06/17 09:00 05/06/17 08:59 04/06/17 08:02 5 MG Levalbuterol (Xopenex Hfa Inhaler) 2 puffs DAILY PRN INH 04/05/17 17:45 05/05/17 17:44 Memantine (Namenda Tab) 5 mg BID PO 04/05/17 21:00 05/05/17 20:59 04/06/17 08:01 5 MG Ranitidine HCl (zANTac TAB) 150 mg DAILY PO 04/06/17 09:00 05/06/17 08:59 04/06/17 08:02 150 MG Selegiline HCl (Eldepryl Cap) 5 mg BID PO 04/05/17 21:00 05/05/17 20:59 04/06/17 08:02 5 MG Ondansetron HCl (Zofran Inj) 4 mg Q6H PRN IV 04/05/17 18:00 05/05/17 17:59 04/05/17 21:19 4 MG Acetaminophen 100 ml @ 400 mls/hr Q8H PRN IV 04/05/17 18:00 05/05/17 17:59 Ceftriaxone Sodium 1 gm/ Dextrose 50 ml @ 100 mls/hr DAILY@2000 IV 04/05/17 20:00 04/15/17 19:59 04/05/17 20:48 100 MLS/HR Objective Vital Signs Date Time Temp Pulse Resp B/P (MAP) Pulse Ox O2 Delivery O2 Flow Rate FiO2 04/06/17 11:38 36.8 64 18 100/52 (68) 96 04/06/17 08:10 36.9 78 16 91/45 (60) 95 04/06/17 08:00 Room Air 04/06/17 04:10 Room Air 04/06/17 03:37 36.9 68 19 100/49 (66) 100 Room Air 92/44 (60) 04/06/17 03:02 63 16 106/46 100 04/06/17 02:30 64 15 92/49 100 04/06/17 01:35 63 16 93/44 100 04/06/17 01:00 36.5 85 18 89/46 100 04/06/17 00:41 37.0 65 17 94/42 100 04/06/17 00:36 36.9 68 20 90/46 100 04/06/17 00:01 Room Air 04/05/17 23:13 36.4 73 18 97/54 (68) 100 Room Air 04/05/17 20:45 69 116/56 100 04/05/17 20:15 66 122/65 100 04/05/17 20:04 Room Air 04/05/17 20:00 64 113/65 100 04/05/17 18:45 36.5 71 16 137/58 100 04/05/17 17:48 36.5 62 16 114/59 100 2.0 04/05/17 17:29 62 18 122/67 100 Nasal Cannula 2.0 04/05/17 17:20 100 Nasal Cannula 2.0 04/05/17 17:08 36.5 58 18 120/47 100 2.0 04/05/17 16:49 36.5 58 20 108/56 93 04/05/17 16:31 59 20 120/99 94 Room Air 2.0 Nasal Cannula 04/05/17 16:00 57 20 115/65 93 Room Air 04/05/17 15:38 60 18 123/56 93 Nasal Cannula 3.0 04/05/17 15:20 96 Room Air 04/05/17 14:59 58 20 104/65 98 Nasal Cannula 2.0 04/05/17 14:21 61 102/50 04/05/17 13:46 60 04/05/17 13:45 36.6 65 18 87/56 97 Room Air Physical Exam General Appearance: WD/WN, no apparent distress Eyes: normal inspection, PERRL ENT: hearing grossly normal Neck: supple, no JVD Respiratory/Chest: lungs clear, normal breath sounds, no respiratory distress Cardiovascular: regular rate, rhythm, no murmur Abdomen: normal bowel sounds, non tender, soft Extremities: non-tender, no pedal edema Neurologic/Psychiatric: alert, normal mood/affect, oriented x 3 Skin: + pertinent finding (hematoma to L lower flank) Laboratory Results Last 24 Hours Test 04/05/17 13:41 04/05/17 14:06 04/05/17 14:07 04/05/17 14:14 White Blood Count 8.68 K/uL Red Blood Count 3.10 M/uL Hemoglobin 8.7 g/dL Hematocrit 27.3 % Mean Corpuscular Volume 88.1 fL Mean Corpuscular Hemoglobin 28.1 pg Mean Corpuscular Hemoglobin Concent 31.9 g/dl Platelet Count 237 K/uL Mean Platelet Volume 11.2 fL Neutrophils (%) (Auto) 88.0 % Lymphocytes (%) (Auto) 3.9 % Monocytes (%) (Auto) 7.3 % Eosinophils (%) (Auto) 0.2 % Basophils (%) (Auto) 0.0 % Neutrophils # (Auto) 7.64 K/uL Lymphocytes # (Auto) 0.34 K/uL Monocytes # (Auto) 0.63 K/uL Eosinophils # (Auto) 0.02 K/uL Basophils # (Auto) 0.00 K/uL RDW Standard Deviation 50.8 fL RDW Coefficient of Variation 15.7 % Immature Granulocyte % (Auto) 0.6 % Immature Granulocyte # (Auto) 0.05 K/uL Erythrocyte Sedimentation Rate 12 mm/hr Sodium Level 134 mmol/L Potassium Level 4.5 mmol/L Chloride Level 100 mmol/L Carbon Dioxide Level 25 mmol/L Anion Gap 9.0 mmol/L 18.0 mmol/L Blood Urea Nitrogen 24 mg/dl Creatinine 1.50 mg/dl Est Creatinine Clear Calc Drug Dose 32.8 ml/min Estimated GFR () 37.7 Estimated GFR (Non- 32.6 BUN/Creatinine Ratio 15.9 Random Glucose 148 mg/dl Calcium Level 8.6 mg/dl Phosphorus Level 3.0 mg/dl Magnesium Level 1.9 mg/dl Total Bilirubin 1.5 mg/dl Aspartate Amino Transf (AST/SGOT) 10 U/L Alanine Aminotransferase (ALT/SGPT) 7 U/L Alkaline Phosphatase 117 U/L Total Creatine Kinase 37 U/L Creatine Kinase MB 1.1 ng/ml Creatine Kinase MB Ratio 3.0 Troponin I < 0.015 ng/ml C-Reactive Protein 4.58 mg/dl Pro-B-Type Natriuretic Peptide 727 pg/ml Total Protein 6.1 gm/dl Albumin 3.2 gm/dl Globulin 2.9 gm/dl Albumin/Globulin Ratio 1.1 Lipase 157 U/L Venous Blood pH 7.38 Venous Blood Partial Pressure CO2 41 mmHg Venous Blood Partial Pressure O2 18 mmHg Venous Blood HCO3 24 mmol/L Venous Blood Oxygen Saturation < 60.0 % Venous Blood Base Excess -1.0 mmol/L Prothrombin Time 81.9 SECONDS Prothromb Time International Ratio 7.1 Activated Partial Thromboplast Time 57.7 SECONDS Partial Thromboplastin Ratio 2.2 Bedside Hemoglobin 8.2 g/dl Bedside Hematocrit 24 % Bedside Sodium 134 mEq/L Bedside Potassium 4.1 mEq/L Bedside Chloride 98 mEq/L Bedside Total CO2 23 mEq/l Bedside Blood Urea Nitrogen 23 mg/dl Bedside Creatinine 1.4 mg/dl Bedside Glucose (other) 124 mg/dl Bedside Ionized Calcium (Yessenia) 1.22 mmol/l Test 04/05/17 14:20 04/05/17 16:25 04/05/17 18:07 04/05/17 22:15 Bedside Lactic Acid Venous 1.33 mmol/L Urine Color DK YELLOW Urine Appearance CLOUDY Urine pH 5.0 Urine Specific Sebastian 1.022 Urine Protein NEG Urine Glucose (UA) NEG Urine Ketones TRACE Urine Occult Blood NEG Urine Nitrite NEG Urine Bilirubin NEG Urine Urobilinogen NEG Urine Leukocyte Esterase NEG Urine WBC (Auto) 1-5 /hpf Urine RBC (Auto) 0-4 /hpf Urine Hyaline Casts (Auto) 10-30 /lpf Urine Epithelial Cells (Auto) >30 /lpf Urine Bacteria (Auto) NEG Urine Renal Epithelial Cells /lpf Urine Crystals CALCIUM OXALATE Urine Pathogenic Casts 0-3 GRANULAR CASTS /lpf Urine Yeast (Auto) Hemoglobin 7.7 g/dL Hematocrit 23.5 % Prothrombin Time 14.3 SECONDS Prothromb Time International Ratio 1.3 Test 04/05/17 23:46 04/06/17 06:29 04/06/17 11:47 Hemoglobin 6.9 g/dL 7.5 g/dL Hematocrit 21.3 % 24.0 % White Blood Count 6.39 K/uL Red Blood Count 2.74 M/uL Mean Corpuscular Volume 87.6 fL Mean Corpuscular Hemoglobin 27.4 pg Mean Corpuscular Hemoglobin Concent 31.3 g/dl Platelet Count 201 K/uL Mean Platelet Volume 11.6 fL Neutrophils (%) (Auto) 77.4 % Lymphocytes (%) (Auto) 8.5 % Monocytes (%) (Auto) 13.3 % Eosinophils (%) (Auto) 0.3 % Basophils (%) (Auto) 0.0 % Neutrophils # (Auto) 4.95 K/uL Lymphocytes # (Auto) 0.54 K/uL Monocytes # (Auto) 0.85 K/uL Eosinophils # (Auto) 0.02 K/uL Basophils # (Auto) 0.00 K/uL RDW Standard Deviation 49.0 fL RDW Coefficient of Variation 15.1 % Immature Granulocyte % (Auto) 0.5 % Immature Granulocyte # (Auto) 0.03 K/uL Red Blood Cell Morphology Unremarkable Prothrombin Time 12.0 SECONDS Prothromb Time International Ratio 1.1 Activated Partial Thromboplast Time 31.3 SECONDS Partial Thromboplastin Ratio 1.2 Sodium Level 141 mmol/L Potassium Level 4.0 mmol/L Chloride Level 107 mmol/L Carbon Dioxide Level 24 mmol/L Anion Gap 10.0 mmol/L Blood Urea Nitrogen 20 mg/dl Creatinine 1.00 mg/dl Est Creatinine Clear Calc Drug Dose 48.9 ml/min Estimated GFR () 61.6 Estimated GFR (Non- 53.2 BUN/Creatinine Ratio 19.9 Random Glucose 87 mg/dl Calcium Level 8.1 mg/dl Magnesium Level 1.8 mg/dl Assessment and Plan 81 yo F with Parkinson's, with increasing falls, who also has new anemia with supratherapeutic INR on Coumadin, with a large hematoma on abdomen from a fall. For now, want to ensure blood counts are stable and bleeding has stopped now that coumadin has been reversed. Will discuss overall risks and benefits of going back on anticoagulation for stroke prevention with her. Acute blood loss anemia requiring 1 units PRBC transfusion Today Hb 7.7, on arrival was 8.7, was 12.5 on 03/15/17. Will repeat CBC tomorrow Flank Hematoma Continue to monitor clinically LLL Opacities - pneumonia vs atelectasis No leukocytosis, normal CXR, received a dose of Rocephin yesterday at 8pm Will stop Rocephin for now Parkinson's Disease Continuing home med regime - Memantine and Selegiline OT/PT/Speech therapy Dementia, likely Parkinson's Related Continue Donepezil and Sinemet Paroxysmal Atrial fibrillation On amiodarone, in NSR Rate well controlled without beta heath Coumadin held as was supratherapeutic on arrival Will discuss going back on anticoagulation with her tomorrow. CODE STATUS: Full PT/OT today DISPO: Transfer to Med/Surg Resident Physician Supervision Note: I interviewed and examined the patient. Discussed with Dr. Hall and agree with findings and plan as documented in the note. Any exceptions or clarifications are listed here: None Documented By: Elian Bobby feeling better flank pain and hematoma settling down. not weak/lightheaded. ROS otherwise negative except for as above vitals noted nad breathing unlabored no pallor or icterus a/p coumadin coagulopathy w acute blood loss anemia causing early hemodynamic instability, requiring transfusion -now appears more stable and improving; conitnue to follow off anticoagulation -follow clinically -?resume coumadin and try to modify fall risk vs NOAC vs off anticoagulation Resident Tracking Resident Involvement: Resident Care Provided Care Provided: Adult Hospital Medicine
[2017-04-06] MEDS: NSS + 20MEQ KCL 1000ML 1,000 ML IV SCH (13:04)
[2017-04-06] MEDS: ONDANSETRON INJ 2 MG/ML 2 ML VIAL IV PRN (16:58)
[2017-04-06 18:30] LABS: HEMATOCRIT 21.9 % (37-47)
[2017-04-06] MEDS: CARBIDOPA/LEVODOPA 50/200MG EXT REL TAB PO SCH (20:46)
[2017-04-07] VITALS (10 sets, daily range): BP systolic 113–138; BP diastolic 65–85; PULSE 63–79; TEMP 36.4–37.1; O2SAT 97–99
[2017-04-07 00:01] LABS: HEMATOCRIT 22.8 % (37-47)
[2017-04-07] MEDS: NSS + 20MEQ KCL 1000ML 1,000 ML IV SCH ×3 (02:32→17:33)
[2017-04-07] MEDS: ONDANSETRON INJ 2 MG/ML 2 ML VIAL IV PRN (02:32)
[2017-04-07] MEDS: CARBIDOPA/LEVODOPA 25/100MG TAB PO SCH ×4 (05:55→17:46)
[2017-04-07 06:34] LABS: HEMATOCRIT 20.7 % (37-47); INR 1.1 (0.9-1.1); MEAN CORPUSCULAR HEMOGLOBIN 29.1 pg (25-34); MEAN CORPUSCULAR HGB CONC 32.4 g/dl (32-36); MEAN PLATELET VOLUME 11.1 fL (7.4-10.4); PLATELET COUNT 148 K/uL (130-400); PROTHROMBIN TIME (PATIENT) 11.4 SECONDS (9.0-12.0); WHITE BLOOD COUNT 4.92 K/uL (4.8-10.8)
[2017-04-07] MEDS ORDERED: PROMETHAZINE HCL INJ 12.5 MG in SODIUM CHLORIDE 0.9% 50ML 50 ML IV STA (06:34)
[2017-04-07 06:40] LABS: COMPLETE YES; EOS % 0.2 %; IG% 0.4 %; LYMPH % 8.9 %; LYMPH ABS # 0.44 K/uL (1.2-3.4); MONO % 11.2 %; NEUT % 79.3 %
[2017-04-07] MEDS ORDERED: NURSING VERBAL MED ORDER ONE (06:45)
[2017-04-07 06:51] LABS: BUN/CREATININE RATIO 21.5 (10-20); CALCIUM 8.3 mg/dl (8.5-10.1); CREATININE 0.86 mg/dl (0.60-1.20); POTASSIUM 4.3 mmol/L (3.5-5.1)
[2017-04-07 06:54] LABS: C-REACTIVE PROTEIN 5.23 mg/dl (0-0.29)
[2017-04-07] MEDS: AMIODARONE 200 MG TAB PO SCH (07:51)
[2017-04-07] MEDS: SELEGILINE HCL 5 MG CAP PO SCH ×2 (07:51→20:37)
[2017-04-07] MEDS: DONEPEZIL HCL 5 MG TAB PO SCH (07:51)
[2017-04-07] MEDS: MEMANTINE 5 MG TAB PO SCH ×2 (07:51→20:37)
[2017-04-07] MEDS: RANITIDINE HCL 150 MG TAB PO SCH (07:51)
--- NOTE | 2017-04-07 08:38 | Clinical Documentation Query ---
JAQUELINE Napier : CLINICAL DOCUMENTATION QUERY Admission BUN and creatinine were 24 mg/dl and 1.50 mg/dl. This a.m. values are 19 mg/dl and 0.86 mg/dl. H&P documented "renal insufficiency", not otherwise specified. This codes to an unspecified disorder of the kidney, lacking the severity and clarity with the diagnosis as suggested below. In your clinical opinion is this patient being managed for: ( x ) Acute kidney failure, POA, resolved ( ) Other explanation of clinical findings (Please Explain) ( ) Unable to determine (Please Define) ( ) Need to Discuss ( ) Not Agree The medical record reflects the following clinical findings, treatment, and risk factors. Clinical Indicators: As above Treatment: Holding of lisinopril, IVF, serial chemistries Risk Factors: Acute blood loss anemia, dehydration, poor oral intake in the setting of nausea Please clarify and document your clinical opinion in the progress notes and discharge summary. Terms such as "probable", "suspected", "likely", "questionable", "possible", or "still to be ruled out" are acceptable. IF IN AGREEMENT, YOU MUST DOCUMENT ABOVE DIAGNOSTIC STATEMENT IN DAILY PROGRESS NOTES AND DISCHARGE SUMMARY. This document is not part of the patient's record. Thank You, Kit Viera, HADLEY [phone]
--- NOTE | 2017-04-07 08:56 | Family Medicine Progress Note ---
Progress Note Date of Service Apr 07, 2017. Subjective Pt evaluation today including: conversation w/ patient, physical exam Voiding: no incontinence [place] ok this morning, was started on a 2nd unit PRBC for Hb which dropped to 6.7. She was also coughing profusely, without any sputum production, and I was able to hear her from down the duong. She reported she wasnt eating at the time, but had her breakfast there as well. Constitutional: + weakness, + fatigue, No fever, No chills, No sweats ENT: No hearing loss Respiratory: + cough, + dyspnea on exertion, No sputum, No wheezing, No shortness of breath Cardiovascular: No chest pain Abdomen: No pain, No nausea Musculoskeletal: No joint pain Neurologic: + memory loss Psychiatric: + depression symptoms Endo: + fatigue Skin: No rash All Other Systems: Reviewed and Negative Medications Current Inpatient Medications Medications (Trade) Dose Ordered Sig/Geronimo Route Start Time Stop Time Status Last Admin Dose Admin Ioversol (Optiray 320) 125 ml UD PRN IV 04/05/17 14:15 04/09/17 14:14 Potassium Chloride/Sodium Chloride 1,000 ml @ 75 mls/hr [id number] IV 04/05/17 20:00 05/05/17 19:59 04/07/17 02:32 75 MLS/HR Acetaminophen (Tylenol Tab) 650 mg Q4H PRN PO 04/05/17 17:45 05/05/17 17:44 Amiodarone HCl (Cordarone Tab) 200 mg DAILY PO 04/06/17 09:00 05/06/17 08:59 04/07/17 07:51 200 MG Carbidopa/Levodopa (Sinemet Cr 50/ 200MG Tab) 1 tab HS PO 04/05/17 21:00 05/05/17 20:59 04/06/17 20:46 1 TAB Carbidopa/Levodopa (Sinemet 25/ 100MG Tab) 3 tab DAILY@0600,1000,1200,1800 PO 04/05/17 19:30 05/05/17 19:29 04/07/17 05:55 3 TAB Donepezil HCl (Aricept Tab) 5 mg DAILY PO 04/06/17 09:00 05/06/17 08:59 04/07/17 07:51 5 MG Levalbuterol (Xopenex Hfa Inhaler) 2 puffs DAILY PRN INH 04/05/17 17:45 05/05/17 17:44 Memantine (Namenda Tab) 5 mg BID PO 04/05/17 21:00 05/05/17 20:59 04/07/17 07:51 5 MG Ranitidine HCl (zANTac TAB) 150 mg DAILY PO 04/06/17 09:00 05/06/17 08:59 04/07/17 07:51 150 MG Selegiline HCl (Eldepryl Cap) 5 mg BID PO 04/05/17 21:00 05/05/17 20:59 04/07/17 07:51 5 MG Ondansetron HCl (Zofran Inj) 4 mg Q6H PRN IV 04/05/17 18:00 05/05/17 17:59 04/07/17 02:32 4 MG Acetaminophen 100 ml @ 400 mls/hr Q8H PRN IV 04/05/17 18:00 05/05/17 17:59 04/07/17 02:39 400 MLS/HR Objective Vital Signs Date Time Temp Pulse Resp B/P (MAP) Pulse Ox O2 Delivery O2 Flow Rate FiO2 04/07/17 08:30 36.6 66 18 119/74 97 04/07/17 07:57 37.0 79 18 137/78 98 04/07/17 07:43 37.1 76 18 124/85 98 04/07/17 07:31 36.9 66 16 136/79 04/07/17 00:12 36.4 63 18 114/75 (88) 99 Room Air 04/06/17 17:52 37.0 78 16 107/65 (79) 99 Room Air 04/06/17 16:53 36.8 77 16 97 2.0 04/06/17 16:00 Room Air 04/06/17 14:52 36.8 77 16 114/86 (95) 97 Room Air 04/06/17 12:00 Room Air 04/06/17 11:38 36.8 64 18 100/52 (68) 96 Physical Exam General Appearance: WD/WN, no apparent distress Eyes: normal inspection, PERRL ENT: hearing grossly normal Neck: supple, no JVD Respiratory/Chest: lungs clear, normal breath sounds, no respiratory distress, + pertinent finding (coughing) Cardiovascular: regular rate, rhythm, no murmur Abdomen: normal bowel sounds, non tender, soft Extremities: non-tender, normal inspection, no pedal edema Neurologic/Psychiatric: alert, normal mood/affect, oriented x 3 Skin: no rash Laboratory Results Last 24 Hours Test 04/06/17 13:05 04/06/17 18:15 04/06/17 23:53 04/07/17 06:00 Hemoglobin 7.8 g/dL 7.0 g/dL 7.1 g/dL 6.7 g/dL Hematocrit 24.0 % 21.9 % 22.8 % 20.7 % White Blood Count 4.92 K/uL Red Blood Count 2.30 M/uL Mean Corpuscular Volume 90.0 fL Mean Corpuscular Hemoglobin 29.1 pg Mean Corpuscular Hemoglobin Concent 32.4 g/dl Platelet Count 148 K/uL Mean Platelet Volume 11.1 fL Neutrophils (%) (Auto) 79.3 % Lymphocytes (%) (Auto) 8.9 % Monocytes (%) (Auto) 11.2 % Eosinophils (%) (Auto) 0.2 % Basophils (%) (Auto) 0.0 % Neutrophils # (Auto) 3.90 K/uL Lymphocytes # (Auto) 0.44 K/uL Monocytes # (Auto) 0.55 K/uL Eosinophils # (Auto) 0.01 K/uL Basophils # (Auto) 0.00 K/uL RDW Standard Deviation 50.7 fL RDW Coefficient of Variation 15.4 % Immature Granulocyte % (Auto) 0.4 % Immature Granulocyte # (Auto) 0.02 K/uL Red Blood Cell Morphology Unremarkable Prothrombin Time 11.4 SECONDS Prothromb Time International Ratio 1.1 Sodium Level 142 mmol/L Potassium Level 4.3 mmol/L Chloride Level 110 mmol/L Carbon Dioxide Level 23 mmol/L Anion Gap 9.0 mmol/L Blood Urea Nitrogen 19 mg/dl Creatinine 0.86 mg/dl Est Creatinine Clear Calc Drug Dose 56.9 ml/min Estimated GFR () 73.9 Estimated GFR (Non- 63.8 BUN/Creatinine Ratio 21.5 Random Glucose 73 mg/dl Calcium Level 8.3 mg/dl C-Reactive Protein 5.23 mg/dl Assessment and Plan 81 yo F with Parkinson's, with increasing falls, who also has new anemia with supratherapeutic INR on Coumadin, with a large hematoma on abdomen from a fall. For now, want to ensure blood counts are stable and bleeding has stopped now that coumadin has been reversed. Will discuss overall risks and benefits of going back on anticoagulation for stroke prevention with her. Acute blood loss anemia requiring 1 units PRBC transfusion Today Hb 6.7, on arrival was 8.7, was 12.5 on 03/15/17. Receiving further unit PRBC If H&H continues to drop, will discuss with IR Acute renal failure Now Cr improved Will continue to monitor and restart antihypertensives when appropriate Flank Hematoma Continue to monitor clinically May discuss with IR if she needs intervention to stop bleeding LLL Opacities - pneumonia vs atelectasis No leukocytosis, normal CXR, received a dose of Rocephin yesterday at 8pm Will stop Rocephin for now Will repeat CXR today Cough - Swallowing disfunction vs Post nasal drip vs ?Bronchospasm vs Pneumonia Will repeat CXR today Will obtain Speech Eval If persists, will consider nebulizer / Flonase Parkinson's Disease Continuing home med regime - Memantine and Selegiline OT/PT/Speech therapy Dementia, likely Parkinson's Related Continue Donepezil and Sinemet Paroxysmal Atrial fibrillation On amiodarone, in NSR Rate well controlled without beta heath Coumadin held as was supratherapeutic on arrival Will discuss going back on anticoagulation with her when more stable CODE STATUS: Full PT/OT today DISPO: Remains on Med/Surg Addendum: 11AM - Had a discussion with pts daughter and Dr Bobby. Thoroughly discussed goals, anticoagulation, and plans for future. In summary, she will discuss with pt and siblings whether pt wants to be on anticoagulation or not. If she does, to prevent stroke, it would be deciding between Coumadin and NOAC, and they understand risks and benefits of both. Also discussed bringing in living will, as well as looking for snf/ personal care facilities in future as her Parkinsons progresses needed additional transfusion - now doing better. cough. extensive discussion w daughter as above - >30mins face to face ROS otherwise negative except for as above vitals noted nad breathing unlabored no pallor or icterus lungs cta b/l no r/r/w good effort acute hemorrhage/acute blood loss anemia w flank hematoma - bled again, required further tranfsusion, looking more stable now. d/w dtr re ?IR if bleeds again. continue to follow closely parkinsons with progression and progressive dementia - continue current meds, discussed possible needs for alf placmeent in the future as sx progress afib - discussed risks/benefits of anticoag vs no anticoag w her more recent weakness and falls, discussed NAOC vs coumadin if (+) to resume anticoagulation othewrise as abive Resident Tracking Resident Involvement: Resident Care Provided Care Provided: Adult Hospital Medicine
[2017-04-07] MEDS ORDERED: GUAIFENESIN 600 MG TABCR PO ONE (09:54)
[2017-04-07] MEDS ORDERED: SODIUM CHLORIDE 0.65% NA SOLN 45 ML (OCEAN) ONE (10:00)
--- NOTE | 2017-04-07 11:50 | DIAGNOSTIC IMAGING REPORT ---
CHEST 2 VIEWS ROUTINE CLINICAL HISTORY: Cough. Evaluate for pneumonia. COMPARISON STUDY: Chest radiograph April 05, 2017. FINDINGS: The patient is rotated. There is no pneumothorax. There are trace bilateral pleural effusions. Mild left lower lung opacity has increased. Cardiomediastinal silhouette is stable. There is no evidence of pulmonary edema. IMPRESSION: 1. Slight increase in left lower lung opacity which could reflect atelectasis or consolidation. 2. Trace bilateral pleural effusions. Electronically signed by: Joaquín Bansal M.D. 04/07/2017 11:48 AM Dictated Date/Time: 04/07/2017 11:46 AM
[2017-04-07 12:15] LABS: HEMATOCRIT 24.9 % (37-47)
[2017-04-07] MEDS: SODIUM CHLORIDE 0.65% NA SOLN 45 ML (OCEAN) SCH (20:35)
[2017-04-07] MEDS: CARBIDOPA/LEVODOPA 50/200MG EXT REL TAB PO SCH (20:36)
[2017-04-07] MEDS: GUAIFENESIN 600 MG TABCR PO SCH (20:37)
[2017-04-08] VITALS: O2SAT 97
[2017-04-08] MEDS ORDERED: VANCOMYCIN INJ 2,100 MG in SODIUM CHLORIDE 0.9% 500ML 500 ML IV STA (02:27)
[2017-04-08] MEDS ORDERED: VANCOMYCIN CONSULT ACTIVE PRN (02:45)
[2017-04-08] MEDS: NSS + 20MEQ KCL 1000ML 1,000 ML IV SCH ×2 (02:56→14:36)
[2017-04-08] MEDS: CARBIDOPA/LEVODOPA 25/100MG TAB PO SCH ×4 (06:00→18:01)
[2017-04-08 06:40] LABS: BASO % 0.2 %; BASO ABS # 0.01 K/uL (0-0.2); EOS % 1.7 %; HEMATOCRIT 26.6 % (37-47); IG% 0.5 %; LYMPH % 10.3 %; LYMPH ABS # 0.66 K/uL (1.2-3.4); MEAN CELL VOLUME 89.9 fL (80-100); MEAN CORPUSCULAR HEMOGLOBIN 29.1 pg (25-34); MEAN CORPUSCULAR HGB CONC 32.3 g/dl (32-36); MONO % 8.1 %; NEUT % 79.2 %; PLATELET COUNT 173 K/uL (130-400); RED BLOOD COUNT 2.96 M/uL (4.2-5.4); WHITE BLOOD COUNT 6.41 K/uL (4.8-10.8)
[2017-04-08 06:44] LABS: INR 1.2 (0.9-1.1); PROTHROMBIN TIME (PATIENT) 12.8 SECONDS (9.0-12.0)
[2017-04-08 07:01] VITALS: BP 124/74; PULSE 77; TEMP 36.9; O2SAT 98
[2017-04-08 07:21] LABS: BUN/CREATININE RATIO 18.3 (10-20); CALCIUM 8.3 mg/dl (8.5-10.1); CREATININE 0.79 mg/dl (0.60-1.20); POTASSIUM 4.3 mmol/L (3.5-5.1)
[2017-04-08] MEDS: GUAIFENESIN 600 MG TABCR PO SCH ×2 (07:53→20:06)
[2017-04-08] MEDS: SODIUM CHLORIDE 0.65% NA SOLN 45 ML (OCEAN) SCH ×2 (07:53→20:05)
[2017-04-08] MEDS: SELEGILINE HCL 5 MG CAP PO SCH ×2 (07:53→20:06)
[2017-04-08] MEDS: RANITIDINE HCL 150 MG TAB PO SCH (07:54)
[2017-04-08] MEDS: AMIODARONE 200 MG TAB PO SCH (07:54)
[2017-04-08] MEDS: MEMANTINE 5 MG TAB PO SCH ×2 (07:54→20:05)
[2017-04-08] MEDS: DONEPEZIL HCL 5 MG TAB PO SCH (07:54)
[2017-04-08 08:10] LABS: COMPLETE YES
[2017-04-08 08:30] VITALS: O2SAT 98
--- NOTE | 2017-04-08 08:41 | Pharmacy Progress Note ---
Pharmacy Abx Initial Consult Date of Service Apr 08, 2017. Pharmacy Dosing Scope Date of Consult: 04/08/17 Consultation requested by: Dr. Macias Pharmacy is consulted to initiate Vancomycin IV dosing therapy, order appropriate labs and adjust drug dose/frequency. Subjective The patient is a 81 year old female admitted on Apr 05, 2017 at 17:03. Objective Height (Feet): 5 Height (Inches): 3.00 Weight (Kilograms): 94.000 Vital Signs (Past 12Hrs) Vital Signs Past 12 Hours Date Time Temp Pulse Resp B/P (MAP) Pulse Ox O2 Delivery O2 Flow Rate FiO2 04/08/17 07:01 36.9 77 20 124/74 (91) 98 Room Air 04/08/17 00:00 97 Room Air 04/07/17 23:56 36.8 63 18 113/65 (81) 97 Room Air Lab Results (24Hrs) Laboratory Tests (24 Hours) Test 04/08/17 06:23 White Blood Count 6.41 K/uL (4.8-10.8) Red Blood Count 2.96 M/uL (4.2-5.4) L Hemoglobin 8.6 g/dL (12.0-16.0) L Hematocrit 26.6 % (37-47) L Mean Corpuscular Volume 89.9 fL (80-100) Mean Corpuscular Hemoglobin 29.1 pg (25-34) Mean Corpuscular Hemoglobin Concent 32.3 g/dl (32-36) Platelet Count 173 K/uL (130-400) Mean Platelet Volume 11.0 fL (7.4-10.4) H Neutrophils (%) (Auto) 79.2 % Lymphocytes (%) (Auto) 10.3 % Monocytes (%) (Auto) 8.1 % Eosinophils (%) (Auto) 1.7 % Basophils (%) (Auto) 0.2 % Neutrophils # (Auto) 5.08 K/uL (1.4-6.5) Lymphocytes # (Auto) 0.66 K/uL (1.2-3.4) L Monocytes # (Auto) 0.52 K/uL (0.11-0.59) Eosinophils # (Auto) 0.11 K/uL (0-0.5) Basophils # (Auto) 0.01 K/uL (0-0.2) Micro Results Date/Time Source Procedure Growth Status 04/05/17 14:07 Blood Blood Culture - Preliminary NO GROWTH TO DATE. Resulted 04/05/17 14:06 Blood Blood Culture - Preliminary Gram Positive Bacilli Resulted 04/05/17 16:25 Urine,Catheterized Urine Culture - Final NO GROWTH - LESS THAN 1,000 COLONIES/ML Complete Assessment & Plan Assessment 81 year old female initiated on IV Vancomycin for 1/2 positive blood cultures - growing GPC. Plan Vancomycin for treatment of bacteremia-confirmed. Vancomycin IV * Loading dose: 2,100 mg (22 mg/kg) * Maintenance dose: 1,250 mg IV (13 mg/kg) every 18 hours * Goal trough level for bacteremia : 15 to 20 mcg/mL * Trough level ordered for 04/11/17 @ 0300 * A less than traditional dose and/or extended dosing interval has been selected due to likelihood of drug accumulation in obese patient (BMI > 35) Pharmacy will continue to follow and will adjust dose/frequency as necessary. Thank you.
[2017-04-08] MEDS ORDERED: VANCOMYCIN INJ 1,000 MG in SODIUM CHLORIDE 0.9% 250ML 250 ML IV SCH (09:00)
--- NOTE | 2017-04-08 10:16 | Family Medicine Progress Note ---
Progress Note Date of Service Apr 08, 2017. Subjective Pt evaluation today including: conversation w/ patient, physical exam Voiding: no voiding problems Feels comfortable. Denies any pain. Informed her about positive blood cultures and she was worried. [place] less pain from bruise. Constitutional: No fever, No chills Eyes: No worsening of vision ENT: No hearing loss Respiratory: No sputum Cardiovascular: No chest pain Abdomen: No pain, No nausea Musculoskeletal: No joint pain Neurologic: No memory loss Endo: No fatigue Skin: + problem reported (bruise) Medications Current Inpatient Medications Medications (Trade) Dose Ordered Sig/Geronimo Route Start Time Stop Time Status Last Admin Dose Admin Ioversol (Optiray 320) 125 ml UD PRN IV 04/05/17 14:15 04/09/17 14:14 Potassium Chloride/Sodium Chloride 1,000 ml @ 75 mls/hr [id number] IV 04/05/17 20:00 05/05/17 19:59 04/08/17 14:36 75 MLS/HR Acetaminophen (Tylenol Tab) 650 mg Q4H PRN PO 04/05/17 17:45 05/05/17 17:44 Amiodarone HCl (Cordarone Tab) 200 mg DAILY PO 04/06/17 09:00 05/06/17 08:59 04/08/17 07:54 200 MG Carbidopa/Levodopa (Sinemet Cr 50/ 200MG Tab) 1 tab HS PO 04/05/17 21:00 05/05/17 20:59 04/07/17 20:36 1 TAB Carbidopa/Levodopa (Sinemet 25/ 100MG Tab) 3 tab DAILY@0600,1000,1200,1800 PO 04/05/17 19:30 05/05/17 19:29 04/08/17 12:29 3 TAB Donepezil HCl (Aricept Tab) 5 mg DAILY PO 04/06/17 09:00 05/06/17 08:59 04/08/17 07:54 5 MG Levalbuterol (Xopenex Hfa Inhaler) 2 puffs DAILY PRN INH 04/05/17 17:45 05/05/17 17:44 Memantine (Namenda Tab) 5 mg BID PO 04/05/17 21:00 05/05/17 20:59 04/08/17 07:54 5 MG Ranitidine HCl (zANTac TAB) 150 mg DAILY PO 04/06/17 09:00 05/06/17 08:59 04/08/17 07:54 150 MG Selegiline HCl (Eldepryl Cap) 5 mg BID PO 04/05/17 21:00 05/05/17 20:59 04/08/17 07:53 5 MG Ondansetron HCl (Zofran Inj) 4 mg Q6H PRN IV 04/05/17 18:00 05/05/17 17:59 04/07/17 02:32 4 MG Acetaminophen 100 ml @ 400 mls/hr Q8H PRN IV 04/05/17 18:00 05/05/17 17:59 04/07/17 02:39 400 MLS/HR Guaifenesin (Mucinex Contr Rel Tab) 600 mg Q12 PO 04/07/17 21:00 05/07/17 20:59 04/08/17 07:53 600 MG Sodium Chloride ([place] Nasal [place]) 2 sprays BID NA 04/07/17 20:00 05/07/17 19:59 04/08/17 07:53 2 SPRAYS Vancomycin HCl (Consult) 1 ea UD PRN N/A 04/08/17 02:45 05/08/17 02:44 Vancomycin HCl 1250 mg/Sodium Chloride 275 ml @ 125 mls/hr Q18H IV 04/08/17 21:00 04/22/17 20:59 Objective Vital Signs Date Time Temp Pulse Resp B/P (MAP) Pulse Ox O2 Delivery O2 Flow Rate FiO2 04/08/17 15:09 36.9 74 16 110/70 (83) 96 Room Air 04/08/17 08:30 98 Room Air 04/08/17 07:01 36.9 77 20 124/74 (91) 98 Room Air 04/08/17 00:00 97 Room Air 04/07/17 23:56 36.8 63 18 113/65 (81) 97 Room Air 04/07/17 16:09 36.4 72 18 138/75 (96) 99 Room Air 04/07/17 16:00 Room Air Physical Exam General Appearance: WD/WN, no apparent distress Eyes: normal inspection, PERRL ENT: hearing grossly normal Neck: supple, no JVD Respiratory/Chest: chest non-tender, lungs clear, normal breath sounds Cardiovascular: regular rate, rhythm, no murmur Abdomen: normal bowel sounds, non tender, soft Extremities: non-tender, no pedal edema Neurologic/Psychiatric: alert, normal mood/affect, oriented x 3 Skin: no rash, + pertinent finding (large bruise to L flank) Laboratory Results Last 24 Hours Test 04/08/17 06:23 White Blood Count 6.41 K/uL Red Blood Count 2.96 M/uL Hemoglobin 8.6 g/dL Hematocrit 26.6 % Mean Corpuscular Volume 89.9 fL Mean Corpuscular Hemoglobin 29.1 pg Mean Corpuscular Hemoglobin Concent 32.3 g/dl Platelet Count 173 K/uL Mean Platelet Volume 11.0 fL Neutrophils (%) (Auto) 79.2 % Lymphocytes (%) (Auto) 10.3 % Monocytes (%) (Auto) 8.1 % Eosinophils (%) (Auto) 1.7 % Basophils (%) (Auto) 0.2 % Neutrophils # (Auto) 5.08 K/uL Lymphocytes # (Auto) 0.66 K/uL Monocytes # (Auto) 0.52 K/uL Eosinophils # (Auto) 0.11 K/uL Basophils # (Auto) 0.01 K/uL RDW Standard Deviation 49.4 fL RDW Coefficient of Variation 15.0 % Immature Granulocyte % (Auto) 0.5 % Immature Granulocyte # (Auto) 0.03 K/uL Red Blood Cell Morphology Unremarkable Prothrombin Time 12.8 SECONDS Prothromb Time International Ratio 1.2 Sodium Level 140 mmol/L Potassium Level 4.3 mmol/L Chloride Level 108 mmol/L Carbon Dioxide Level 25 mmol/L Anion Gap 7.0 mmol/L Blood Urea Nitrogen 14 mg/dl Creatinine 0.79 mg/dl Est Creatinine Clear Calc Drug Dose 61.9 ml/min Estimated GFR () 81.9 Estimated GFR (Non- 70.7 BUN/Creatinine Ratio 18.3 Random Glucose 78 mg/dl Calcium Level 8.3 mg/dl Assessment and Plan 81 yo F with Parkinson's, had large hematoma from fall, INR now normalzied and bleeding has likely stopped. Acute blood loss anemia requiring 2 units PRBC transfusion Today Hb 8.6, on arrival was 8.7, was 12.5 on 03/15/17. 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 Discussed with Dr. Hall and agree with findings and plan as documented in the note. Any exceptions or clarifications are listed here: None Documented By: Elian Bobby feeling OK right now wonders about going home ongoing flank bruising but doesn' t seem worse. discussed home vs rehab. will await further input from therapy. ROS otherwise negative except for as above vitals noted nad breathing unlabored large dense dark flank bruising, no pallor or icterus acute blood loss anemia due to coumadin coagulopathy and parkinsons related falls w elevated INR sp transfusion 2 units. much more stable now. home vs rehab dependant on further PT/OT input now that she's more stable afib - for now off anticoag, discussed risks/benefits pt and family deciding first +/- ongoing anticoagulation risk/benefit, then if resume anticoag NOAC vs resuming coumadin - for now stll too soon to resume even if they opt for this, so hold for now. understand stroke risk. DVT proph - pharmacologic contraindicated due to bleeding as above, mechanical of dubious benefit and possible risks (falls, skin breakdown) (+) blood culture - await further growth, suspect false (+) but vanco coverage until clear Resident Tracking Resident Involvement: Resident Care Provided Care Provided: Adult Hospital Medicine
[2017-04-08 15:09] VITALS: BP 110/70; PULSE 74; TEMP 36.9; O2SAT 96
[2017-04-08] MEDS: ONDANSETRON INJ 2 MG/ML 2 ML VIAL IV PRN (17:27)
[2017-04-08] MEDS: CARBIDOPA/LEVODOPA 50/200MG EXT REL TAB PO SCH (20:06)
[2017-04-08] MEDS ORDERED: VANCOMYCIN INJ 1,250 MG in SODIUM CHLORIDE 0.9% 250ML 250 ML IV SCH (21:00)
[2017-04-09 00:21] VITALS: BP 127/74; PULSE 70; TEMP 36.6; O2SAT 100
[2017-04-09] MEDS: NSS + 20MEQ KCL 1000ML 1,000 ML IV SCH (05:39)
[2017-04-09] MEDS: CARBIDOPA/LEVODOPA 25/100MG TAB PO SCH ×4 (05:39→17:36)
[2017-04-09 06:39] LABS: EOS % 2.5 %; HEMATOCRIT 26.8 % (37-47); IG% 0.5 %; LYMPH % 6.2 %; LYMPH ABS # 0.59 K/uL (1.2-3.4); MEAN CELL VOLUME 89.6 fL (80-100); MEAN CORPUSCULAR HEMOGLOBIN 29.1 pg (25-34); MEAN CORPUSCULAR HGB CONC 32.5 g/dl (32-36); MEAN PLATELET VOLUME 11.2 fL (7.4-10.4); MONO % 5.1 %; NEUT % 85.7 %; PLATELET COUNT 213 K/uL (130-400); RED BLOOD COUNT 2.99 M/uL (4.2-5.4); WHITE BLOOD COUNT 9.53 K/uL (4.8-10.8)
[2017-04-09 07:13] LABS: COMPLETE YES; MICROCYTOSIS PRESENT
[2017-04-09 07:16] LABS: CREATININE 0.83 mg/dl (0.60-1.20)
[2017-04-09] MEDS: ONDANSETRON INJ 2 MG/ML 2 ML VIAL IV PRN (07:31)
[2017-04-09 07:34] VITALS: BP 131/75; PULSE 64; TEMP 37; O2SAT 92
[2017-04-09 08:40] VITALS: O2SAT 92
[2017-04-09] MEDS: AMIODARONE 200 MG TAB PO SCH (08:46)
[2017-04-09] MEDS: MEMANTINE 5 MG TAB PO SCH ×2 (08:46→20:13)
[2017-04-09] MEDS: GUAIFENESIN 600 MG TABCR PO SCH ×2 (08:46→20:15)
[2017-04-09] MEDS: DONEPEZIL HCL 5 MG TAB PO SCH (08:46)
[2017-04-09] MEDS: SELEGILINE HCL 5 MG CAP PO SCH ×2 (08:47→20:14)
[2017-04-09] MEDS: RANITIDINE HCL 150 MG TAB PO SCH (08:47)
[2017-04-09] MEDS: SODIUM CHLORIDE 0.65% NA SOLN 45 ML (OCEAN) SCH ×2 (08:47→20:14)
--- NOTE | 2017-04-09 09:03 | Family Medicine Progress Note ---
Progress Note Date of Service Apr 09, 2017. Subjective Pt evaluation today including: conversation w/ patient [place] very nauseated today, did not eat much breakfast Worked with PT yesterday, has been improving and likely requires further PT No other pain, no pain from hematoma Additional Comments: ROS negative unless noted in HPI Medications Current Inpatient Medications Medications (Trade) Dose Ordered Sig/Geronimo Route Start Time Stop Time Status Last Admin Dose Admin Ioversol (Optiray 320) 125 ml UD PRN IV 04/05/17 14:15 04/09/17 14:14 Potassium Chloride/Sodium Chloride 1,000 ml @ 75 mls/hr [id number] IV 04/05/17 20:00 05/05/17 19:59 04/09/17 05:39 75 MLS/HR Acetaminophen (Tylenol Tab) 650 mg Q4H PRN PO 04/05/17 17:45 05/05/17 17:44 Amiodarone HCl (Cordarone Tab) 200 mg DAILY PO 04/06/17 09:00 05/06/17 08:59 04/09/17 08:46 200 MG Carbidopa/Levodopa (Sinemet Cr 50/ 200MG Tab) 1 tab HS PO 04/05/17 21:00 05/05/17 20:59 04/08/17 20:06 1 TAB Carbidopa/Levodopa (Sinemet 25/ 100MG Tab) 3 tab DAILY@0600,1000,1200,1800 PO 04/05/17 19:30 05/05/17 19:29 04/09/17 05:39 3 TAB Donepezil HCl (Aricept Tab) 5 mg DAILY PO 04/06/17 09:00 05/06/17 08:59 04/09/17 08:46 5 MG Levalbuterol (Xopenex Hfa Inhaler) 2 puffs DAILY PRN INH 04/05/17 17:45 05/05/17 17:44 Memantine (Namenda Tab) 5 mg BID PO 04/05/17 21:00 05/05/17 20:59 04/09/17 08:46 5 MG Ranitidine HCl (zANTac TAB) 150 mg DAILY PO 04/06/17 09:00 05/06/17 08:59 04/09/17 08:47 150 MG Selegiline HCl (Eldepryl Cap) 5 mg BID PO 04/05/17 21:00 05/05/17 20:59 04/09/17 08:47 5 MG Ondansetron HCl (Zofran Inj) 4 mg Q6H PRN IV 04/05/17 18:00 05/05/17 17:59 04/09/17 07:31 4 MG Acetaminophen 100 ml @ 400 mls/hr Q8H PRN IV 04/05/17 18:00 05/05/17 17:59 04/07/17 02:39 400 MLS/HR Guaifenesin (Mucinex Contr Rel Tab) 600 mg Q12 PO 04/07/17 21:00 05/07/17 20:59 04/09/17 08:46 600 MG Sodium Chloride ([place] Nasal [place]) 2 sprays BID NA 04/07/17 20:00 05/07/17 19:59 04/09/17 08:47 2 SPRAYS Vancomycin HCl (Consult) 1 ea UD PRN N/A 04/08/17 02:45 05/08/17 02:44 Vancomycin HCl 1250 mg/Sodium Chloride 275 ml @ 125 mls/hr Q18H IV 04/08/17 21:00 04/22/17 20:59 04/08/17 20:06 125 MLS/HR Objective Vital Signs Date Time Temp Pulse Resp B/P (MAP) Pulse Ox O2 Delivery O2 Flow Rate FiO2 04/09/17 07:34 37.0 64 20 131/75 (93) 92 Room Air 04/09/17 00:21 36.6 70 18 127/74 (91) 100 Room Air 04/09/17 00:00 Room Air 04/08/17 15:50 Room Air 04/08/17 15:09 36.9 74 16 110/70 (83) 96 Room Air Physical Exam General Appearance: WD/WN, no apparent distress Eyes: normal inspection, PERRL ENT: hearing grossly normal Neck: supple, no JVD Respiratory/Chest: lungs clear, normal breath sounds, no respiratory distress Cardiovascular: regular rate, rhythm, no murmur Abdomen: soft, + pertinent finding (large hematoma to L ) Extremities: non-tender, normal inspection, no pedal edema Neurologic/Psychiatric: alert, normal mood/affect Skin: no rash Laboratory Results Last 24 Hours Test 04/09/17 06:25 White Blood Count 9.53 K/uL Red Blood Count 2.99 M/uL Hemoglobin 8.7 g/dL Hematocrit 26.8 % Mean Corpuscular Volume 89.6 fL Mean Corpuscular Hemoglobin 29.1 pg Mean Corpuscular Hemoglobin Concent 32.5 g/dl Platelet Count 213 K/uL Mean Platelet Volume 11.2 fL Neutrophils (%) (Auto) 85.7 % Lymphocytes (%) (Auto) 6.2 % Monocytes (%) (Auto) 5.1 % Eosinophils (%) (Auto) 2.5 % Basophils (%) (Auto) 0.0 % Neutrophils # (Auto) 8.16 K/uL Lymphocytes # (Auto) 0.59 K/uL Monocytes # (Auto) 0.49 K/uL Eosinophils # (Auto) 0.24 K/uL Basophils # (Auto) 0.00 K/uL RDW Standard Deviation 49.6 fL RDW Coefficient of Variation 14.9 % Immature Granulocyte % (Auto) 0.5 % Immature Granulocyte # (Auto) 0.05 K/uL Microcytosis PRESENT Creatinine 0.83 mg/dl Est Creatinine Clear Calc Drug Dose 58.9 ml/min Estimated GFR () 77.2 Estimated GFR (Non- 66.6 Assessment and Plan 81 yo F with Parkinson's, had large hematoma from fall, INR now normalzied and bleeding has likely stopped. Acute blood loss anemia requiring 2 units PRBC transfusion Today Hb 8.7, on arrival was 8.7, was 12.5 on 03/15/17. 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 Discussed with Dr. Hall and agree with findings and plan as documented in the note. Any exceptions or clarifications are listed here: None Documented By: Elian Bobby feeling OK. no new complaints. extensively discussed home vs rehab based on how she's doing. kind of understood, but due to baseline mentation, also seemed difficult for her to totally undesrtand. ROS otherwise negative except for as above discussed with daughter extensively as well: a) very appreciative of care; b) thinks acute rehab --> goal of home --> work on ideal placement situation for pt over the time at home would be the best situation - but needs to talk w her father/pt's first. vitals noted nad breathing unlabored pleasant but mildly confused no pallor weaknes/acute blood loss anemia duet o fall w coumadin coagulopathy fall from parkinsons related weakness --> now more stable but appearing to need rehab. as above, hopefully to [facility] tomorrow. Resident Tracking Resident Involvement: Resident Care Provided Care Provided: Adult Hospital Medicine
[2017-04-09] MEDS ORDERED: NURSING VERBAL MED ORDER ONE (11:30)
[2017-04-09] MEDS ORDERED: PROMETHAZINE HCL INJ 12.5 MG in SODIUM CHLORIDE 0.9% 50ML 50 ML IV ONE (12:00)
[2017-04-09 12:39] VITALS: BP 131/75; PULSE 64; O2SAT 92
[2017-04-09] MEDS ORDERED: BOOST VANILLA PO SCH ×2 (20:00)
[2017-04-09] MEDS: CARBIDOPA/LEVODOPA 50/200MG EXT REL TAB PO SCH (20:16)
[2017-04-09 23:55] VITALS: BP 126/75; PULSE 69; TEMP 36.6; O2SAT 97
[2017-04-10] MEDS: CARBIDOPA/LEVODOPA 25/100MG TAB PO SCH ×4 (06:15→17:17)
[2017-04-10 07:39] VITALS: BP 168/83; PULSE 74; TEMP 36.7; O2SAT 95
[2017-04-10] MEDS: ONDANSETRON INJ 2 MG/ML 2 ML VIAL IV PRN (08:04)
[2017-04-10] MEDS: MEMANTINE 5 MG TAB PO SCH ×2 (08:06→20:12)
[2017-04-10] MEDS: SODIUM CHLORIDE 0.65% NA SOLN 45 ML (OCEAN) SCH ×2 (08:06→20:12)
[2017-04-10] MEDS: DONEPEZIL HCL 5 MG TAB PO SCH (08:06)
[2017-04-10] MEDS: BOOST VANILLA PO SCH ×4 (08:07→20:12)
[2017-04-10] MEDS: AMIODARONE 200 MG TAB PO SCH (08:07)
[2017-04-10] MEDS: RANITIDINE HCL 150 MG TAB PO SCH ×2 (08:07→20:11)
[2017-04-10] MEDS: GUAIFENESIN 600 MG TABCR PO SCH ×2 (08:07→20:11)
[2017-04-10] MEDS: SELEGILINE HCL 5 MG CAP PO SCH ×2 (08:08→20:12)
[2017-04-10 15:25] VITALS: BP 123/78; PULSE 73; TEMP 36.6; O2SAT 99
--- NOTE | 2017-04-10 16:58 | Family Medicine Progress Note ---
Progress Note Date of Service Apr 10, 2017. Subjective Pt evaluation today including: conversation w/ patient, conversation w/ family , physical exam Daphnie was lucid this morning, we talked about her overall goals and she was able to recall most of her admission - she was also able to clearly state she would not want to be resuscitated / intubated. We talked about going to rehab and she agreed. No further pain, has some weakness, and has some nausea in the mornings. Additional Comments: ROS negative except for as noted in the HPI Medications Current Inpatient Medications Medications (Trade) Dose Ordered Sig/Geronimo Route Start Time Stop Time Status Last Admin Dose Admin Acetaminophen (Tylenol Tab) 650 mg Q4H PRN PO 04/05/17 17:45 05/05/17 17:44 Amiodarone HCl (Cordarone Tab) 200 mg DAILY PO 04/06/17 09:00 05/06/17 08:59 04/10/17 08:07 200 MG Carbidopa/Levodopa (Sinemet Cr 50/ 200MG Tab) 1 tab HS PO 04/05/17 21:00 05/05/17 20:59 04/09/17 20:16 1 TAB Carbidopa/Levodopa (Sinemet 25/ 100MG Tab) 3 tab DAILY@0600,1000,1200,1800 PO 04/05/17 19:30 05/05/17 19:29 04/10/17 12:03 3 TAB Donepezil HCl (Aricept Tab) 5 mg DAILY PO 04/06/17 09:00 05/06/17 08:59 04/10/17 08:06 5 MG Levalbuterol (Xopenex Hfa Inhaler) 2 puffs DAILY PRN INH 04/05/17 17:45 05/05/17 17:44 Memantine (Namenda Tab) 5 mg BID PO 04/05/17 21:00 05/05/17 20:59 04/10/17 08:06 5 MG Selegiline HCl (Eldepryl Cap) 5 mg BID PO 04/05/17 21:00 05/05/17 20:59 04/10/17 08:08 5 MG Ondansetron HCl (Zofran Inj) 4 mg Q6H PRN IV 04/05/17 18:00 05/05/17 17:59 04/10/17 08:04 4 MG Acetaminophen 100 ml @ 400 mls/hr Q8H PRN IV 04/05/17 18:00 05/05/17 17:59 04/07/17 02:39 400 MLS/HR Guaifenesin (Mucinex Contr Rel Tab) 600 mg Q12 PO 04/07/17 21:00 05/07/17 20:59 04/10/17 08:07 600 MG Sodium Chloride ([place] Nasal [place]) 2 sprays BID NA 04/07/17 20:00 05/07/17 19:59 04/10/17 08:06 2 SPRAYS Enteral Nutritional Formula (Boost) 1 can BID PO 04/10/17 08:00 05/10/17 07:59 04/10/17 08:07 1 CAN Ranitidine HCl (zANTac TAB) 150 mg BID PO 04/10/17 20:00 05/06/17 08:59 Objective Vital Signs Date Time Temp Pulse Resp B/P (MAP) Pulse Ox O2 Delivery O2 Flow Rate FiO2 04/10/17 15:25 36.6 73 16 123/78 (93) 99 Room Air 04/10/17 08:00 Room Air 04/10/17 07:39 36.7 74 18 168/83 (111) 95 04/10/17 00:00 Room Air 04/09/17 23:55 36.6 69 18 126/75 (92) 97 Room Air 04/09/17 20:00 Room Air Physical Exam General Appearance: WD/WN, no apparent distress Eyes: normal inspection, PERRL ENT: hearing grossly normal Neck: supple, no JVD Respiratory/Chest: lungs clear Cardiovascular: regular rate, rhythm, no murmur Abdomen: normal bowel sounds, non tender, soft Extremities: non-tender, no pedal edema Neurologic/Psychiatric: alert, normal mood/affect, oriented x 3 Skin: + pertinent finding (hematoma on L side) Laboratory Results Last 24 Hours Test 04/10/17 09:48 Hemoglobin 7.8 g/dL Assessment and Plan 81 yo F with Parkinson's, had large hematoma from fall, INR now normalized and bleeding has likely stopped. Acute blood loss anemia requiring 2 units PRBC transfusion Today Hb 7.8, on arrival was 8.7, was 12.5 on 03/15/17. 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 Discussed with Dr. Hall and agree with findings and plan as documented in the note. Any exceptions or clarifications are listed here: None Documented By: Elian Bobby feeling better agrees rehab. later informed unfortunately denied. called for peer to peer but no answer even with their 1800# - not even a voicemailbox. will try again tomorrow. ROS otherwise negative except for as above vitals noted nad breathing unlabored no pallor or icterus parkinsons w mild parkinsons dementia frequent falls supratherapeutic INR from poor PO intake --> hematoma causing acute blood loss anemia requiring multiple transfusions. now stable. goal is to get back home. rehab was denied which is beyond my understanding as clinically she appears to have rehab potential and likely can stay at home for a while given how much family support she has if we maximize her rehab potential, appearing to be an erroneous decision by insurance and will try to appeal. otherwise as above Resident Tracking Resident Involvement: Resident Care Provided Care Provided: Adult Hospital Medicine
[2017-04-10] MEDS: CARBIDOPA/LEVODOPA 50/200MG EXT REL TAB PO SCH (20:12)
[2017-04-10 21:00] VITALS: BP 143/70; PULSE 91; TEMP 36.3; O2SAT 97
[2017-04-11] MEDS ORDERED: VANCOMYCIN TROUGH SCH (02:30)
[2017-04-11] MEDS: CARBIDOPA/LEVODOPA 25/100MG TAB PO SCH ×4 (06:31→17:27)
[2017-04-11 07:37] VITALS: BP 115/75; PULSE 65; TEMP 36.6; O2SAT 99
[2017-04-11] MEDS: SODIUM CHLORIDE 0.65% NA SOLN 45 ML (OCEAN) SCH ×2 (07:56→21:09)
[2017-04-11] MEDS: MEMANTINE 5 MG TAB PO SCH ×2 (07:56→21:10)
[2017-04-11] MEDS: AMIODARONE 200 MG TAB PO SCH (07:56)
[2017-04-11] MEDS: SELEGILINE HCL 5 MG CAP PO SCH ×2 (07:56→21:10)
[2017-04-11] MEDS: RANITIDINE HCL 150 MG TAB PO SCH ×2 (07:56→21:10)
[2017-04-11] MEDS: DONEPEZIL HCL 5 MG TAB PO SCH (07:56)
[2017-04-11] MEDS: GUAIFENESIN 600 MG TABCR PO SCH ×2 (07:56→21:11)
[2017-04-11] MEDS: BOOST VANILLA PO SCH ×4 (08:31→21:09)
[2017-04-11 15:39] VITALS: BP 118/73; PULSE 68; TEMP 36.6; O2SAT 100
--- NOTE | 2017-04-11 17:06 | Progress Note ---
Subjective Date of Service: Apr 11, 2017. Subjective Pt evaluation today including: conversation w/ patient, conversation w/ family (tried to call dtr, no answer), physical exam, chart review, lab review, review of inpatient medication list feeling the same, still mildly confused. denied rehab - d/w her and asked to appeal as pt, even while we're doing peer to peer review as doc. no new complaints - just weak. knows she's weak. ROS otherwise negative except for as above Problem List Medical Problems: (1) Anemia Status: Acute (2) Atrial fibrillation with RVR Status: Acute (3) Atrial fibrillation with RVR Status: Acute (4) Colitis Status: Acute (5) Constipation Status: Acute (6) Elevated INR Status: Acute (7) Elevated INR Status: Acute (8) Hematoma of left flank Status: Acute (9) Hypernatremia Status: Acute (10) Hypotension Status: Acute (11) Left sided chest pain Status: Acute (12) Proctitis Status: Acute (13) UTI (urinary tract infection) Status: Acute (14) UTI (urinary tract infection) Status: Acute (15) Weakness Status: Acute (16) Weakness Status: Acute (17) Weakness Status: Acute (18) Weakness generalized Status: Acute Review of Systems ROS otherwise negative except for as above Objective Vital Signs Date Time Temp Pulse Resp B/P (MAP) Pulse Ox O2 Delivery O2 Flow Rate FiO2 04/11/17 15:39 36.6 68 17 118/73 (88) 100 Room Air 04/11/17 08:00 Room Air 04/11/17 07:37 36.6 65 17 115/75 (88) 99 Room Air 04/11/17 00:00 Room Air 04/10/17 21:00 36.3 91 20 143/70 (94) 97 Room Air Physical Exam General Appearance: no apparent distress Eyes: EOMI ENT: hearing grossly normal Neck: trachea midline Respiratory/Chest: no respiratory distress, no accessory muscle use 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 now stable. goal is to get back home. rehab was denied which is beyond my understanding as clinically she appears to have rehab potential and likely can stay at home for a while given how much family support she has if we maximize her rehab potential, appearing to be an erroneous decision by insurance and will try to appeal. Acute blood loss anemia requiring 2 units PRBC transfusion Hgb has been stable - continue to follow clinically, periodic Hgb check Flank Hematoma appearing clinically stable - due to above, supportive care coumadin coagulopathy reversed INR - poor oral intake prior likely was what led to high INR poor PO intake initially due to nausea from drainage from URI, now appaering poor due to weakness/age/just poor appetite Gram positive bacilli in blood culture Stopped Vancomycin, likely contaminant, no f/c/s since Cough - Improved Continue Mucinex / Nasal saline, has been beneficial for cough Parkinson's Disease Continuing home med regime - Memantine and Selegiline OT/PT/Speech therapy cause of falls - but appears to have potential to be stronger Dementia, 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 also discussed coumadin vs NOAC when/if the time comes to resume anticoagulation dispo -too weak to be safe at home - just had recent fall with massive bleed, was too weak prior to bleed, obviously weaker now -does appear to have some degree of rehab potential for improvement - likely will need snf placement at some point but in extensive discussions with pt 's daughters they don't believe she is at that point yet -would best benefit from rehab - outside of self-interested insurance company financial concerns it is entirely unclear to me the rationale behind a rehab denial -i have now tried to call for peer to peer review yesterday and today - both times phone rings, no voicemail/automated system/ability to even leave a message - just rings and then eventually disconnects -insurance company decision to deny rehab is, in my opinion, actively putting the patient at risk: -she is too weak to be safe at home even with extra support, so home is not a safe options -she is subject to more deconditioning and nosocomial risk while still in hospital than she would be in a different setting but i am unable to discharge her from the hospital because her fall risk at home is greater than her deconditioning and nosocomial risk here -- but it is absolutely unacceptable to me (and i believe unethical) that her insurance company would let her sit in hospital without a safe disposition for several days now simply because of rehab denial on a thursday. i do suspect that they will attempt to say that SNF is an equal option, i do not believe this to be true, but they aren't even allowing my ability to dispo her to a SNF because of the inability to bring rehab +/- to resolution
[2017-04-11] MEDS: CARBIDOPA/LEVODOPA 50/200MG EXT REL TAB PO SCH (21:11)
[2017-04-11] MEDS ORDERED: NURSING VERBAL MED ORDER ONE (22:45)
[2017-04-11] MEDS ORDERED: LORAZEPAM INJ 0.5 MG in SYRINGE 0.75 ML IV PRN (23:00)
[2017-04-12 00:56] VITALS: BP 148/75; PULSE 70; TEMP 36.5; O2SAT 99
[2017-04-12] MEDS: CARBIDOPA/LEVODOPA 25/100MG TAB PO SCH ×4 (06:15→17:18)
[2017-04-12] MEDS: RANITIDINE HCL 150 MG TAB PO SCH ×2 (07:47→20:54)
[2017-04-12] MEDS: SODIUM CHLORIDE 0.65% NA SOLN 45 ML (OCEAN) SCH ×2 (07:47→20:52)
[2017-04-12] MEDS: MEMANTINE 5 MG TAB PO SCH ×2 (07:48→20:53)
[2017-04-12] MEDS: DONEPEZIL HCL 5 MG TAB PO SCH (07:48)
[2017-04-12] MEDS: SELEGILINE HCL 5 MG CAP PO SCH ×2 (07:48→20:52)
[2017-04-12] MEDS: GUAIFENESIN 600 MG TABCR PO SCH ×2 (07:48→20:54)
[2017-04-12] MEDS: AMIODARONE 200 MG TAB PO SCH (07:48)
[2017-04-12 07:51] VITALS: BP 116/71; PULSE 66; TEMP 37.2; O2SAT 100
[2017-04-12] MEDS: BOOST VANILLA PO SCH ×4 (08:16→20:52)
[2017-04-12 15:19] VITALS: BP 118/66; PULSE 66; TEMP 36.9; O2SAT 97
--- NOTE | 2017-04-12 16:10 | Progress Note ---
Subjective Date of Service: Apr 12, 2017. Subjective Pt evaluation today including: conversation w/ patient, physical exam, chart review, lab review, review of inpatient medication list no new complaints. a little confused off and on, was seen twice today - sleeping comfortably this morning then awake this afternoon. feeling ok just weak Problem List Medical Problems: (1) Anemia Status: Acute (2) Atrial fibrillation with RVR Status: Acute (3) Atrial fibrillation with RVR Status: Acute (4) Colitis Status: Acute (5) Constipation Status: Acute (6) Elevated INR Status: Acute (7) Elevated INR Status: Acute (8) Hematoma of left flank Status: Acute (9) Hypernatremia Status: Acute (10) Hypotension Status: Acute (11) Left sided chest pain Status: Acute (12) Proctitis Status: Acute (13) UTI (urinary tract infection) Status: Acute (14) UTI (urinary tract infection) Status: Acute (15) Weakness Status: Acute (16) Weakness Status: Acute (17) Weakness Status: Acute (18) Weakness generalized Status: Acute Review of Systems ROS otherwise negative except for as above Objective Vital Signs Date Time Temp Pulse Resp B/P (MAP) Pulse Ox O2 Delivery O2 Flow Rate FiO2 04/12/17 15:52 Room Air 04/12/17 15:19 36.9 66 17 118/66 (83) 97 Room Air 04/12/17 08:00 Room Air 04/12/17 07:51 37.2 66 17 116/71 (86) 100 Room Air 04/12/17 00:56 36.5 70 20 148/75 (99) 99 Room Air 04/12/17 00:10 Room Air Physical Exam General Appearance: no apparent distress Eyes: EOMI ENT: hearing grossly normal Neck: trachea midline Respiratory/Chest: no respiratory distress, no accessory muscle use Neurologic/Psychiatric: 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 now stable. goal is to get back home. rehab was denied which is beyond my understanding as clinically she appears to have rehab potential and likely can stay at home for a while given how much family support she has if we maximize her rehab potential, appearing to be an erroneous decision by insurance and will try to appeal. Acute blood loss anemia requiring 2 units PRBC transfusion Hgb has been stable - continue to follow clinically, periodic Hgb check Flank Hematoma appearing clinically stable - due to above coumadin coagulopathy reversed INR - poor oral intake prior likely was what led to high INR poor PO intake initially due to nausea from drainage from URI, now appearing poor due to weakness/age/just poor appetite --> cntinue to follow and encourage PO intake Gram positive bacilli in blood culture Stopped Vancomycin, likely contaminant, no f/c/s since stopping abx Cough - Improved Continue Mucinex / Nasal saline, has been beneficial for cough Parkinson's Disease Continuing home med regime - Memantine and Selegiline OT/PT/Speech therapy cause of falls - but appears to have potential to be stronger Dementia, 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 also discussed coumadin vs NOAC when/if the time comes to resume anticoagulation dispo -too weak to be safe at home - just had recent fall with massive bleed, was too weak prior to bleed, obviously weaker now -does appear to have some degree of rehab potential for improvement - likely will need intermediate designer placement at some point but in extensive discussions with pt 's daughters they don't believe she is at that point yet -would best benefit from rehab - outside of self-interested insurance company financial concerns it is entirely unclear to me the rationale behind a rehab denial -i have now tried to call for peer to peer review 04/10, 04/11, 04/12 - every time phone rings, no voicemail/automated system/ability to even leave a message - just rings and then eventually disconnects -asked pt and family to call for appeal as well -insurance company decision to deny rehab is, in my opinion, actively putting the patient at risk: -she is too weak to be safe at home even with extra support, so home is not a safe options -she is subject to more deconditioning and nosocomial risk while still in hospital than she would be in a different setting but i am unable to discharge her from the hospital because her fall risk at home is greater than her deconditioning and nosocomial risk here -- but it is absolutely unacceptable to me (and i believe unethical) that her insurance company would let her sit in hospital without a safe disposition for several days now simply because of rehab denial on a thursday. i do suspect that they will attempt to say that SNF is an equal option, i do not believe this to be true, but they aren't even allowing my ability to dispo her to a SNF because of the inability to bring rehab +/- to resolution
[2017-04-12] MEDS ORDERED: MICONAZOLE NITRATE POWDER 43 GM ONE (17:11)
[2017-04-12] MEDS ORDERED: NURSING DECISION MEDICATION ORDER SCH (17:15)
[2017-04-12] MEDS ORDERED: MICONAZOLE NITRATE POWDER 43 GM EXT PRN (17:30)
[2017-04-12] MEDS: CARBIDOPA/LEVODOPA 50/200MG EXT REL TAB PO SCH (20:53)
[2017-04-12 23:36] VITALS: BP 128/77; PULSE 73; TEMP 36.9; O2SAT 94
[2017-04-13] MEDS: CARBIDOPA/LEVODOPA 25/100MG TAB PO SCH ×4 (05:47→17:30)
[2017-04-13 06:36] LABS: BASO % 0.2 %; BASO ABS # 0.01 K/uL (0-0.2); HEMATOCRIT 24.6 % (37-47); IG% 0.7 %; LYMPH % 12.8 %; MEAN CELL VOLUME 88.2 fL (80-100); MEAN CORPUSCULAR HEMOGLOBIN 28.3 pg (25-34); MEAN CORPUSCULAR HGB CONC 32.1 g/dl (32-36); MEAN PLATELET VOLUME 10.5 fL (7.4-10.4); MONO % 6.6 %; NEUT % 77.7 %; PLATELET COUNT 233 K/uL (130-400); RED BLOOD COUNT 2.79 M/uL (4.2-5.4); WHITE BLOOD COUNT 5.45 K/uL (4.8-10.8)
[2017-04-13 07:52] VITALS: BP 123/69; PULSE 71; TEMP 37.1; O2SAT 98
[2017-04-13] MEDS: MEMANTINE 5 MG TAB PO SCH (07:53)
[2017-04-13] MEDS: RANITIDINE HCL 150 MG TAB PO SCH (07:53)
[2017-04-13] MEDS: AMIODARONE 200 MG TAB PO SCH (07:53)
[2017-04-13] MEDS: DONEPEZIL HCL 5 MG TAB PO SCH (07:53)
[2017-04-13] MEDS: GUAIFENESIN 600 MG TABCR PO SCH (07:53)
[2017-04-13] MEDS: SELEGILINE HCL 5 MG CAP PO SCH (07:53)
[2017-04-13] MEDS: SODIUM CHLORIDE 0.65% NA SOLN 45 ML (OCEAN) SCH (07:53)
[2017-04-13 08:06] LABS: COMPLETE YES
[2017-04-13] MEDS: BOOST VANILLA PO SCH ×2 (08:07)
[2017-04-13 16:09] VITALS: BP 120/77; PULSE 63; TEMP 36.4; O2SAT 99
--- NOTE | 2017-04-13 17:14 | Discharge Summary ---
Discharge Summary Date of Service Apr 13, 2017. (Bonita Hall MD) Discharge Summary Admission Date: Apr 05, 2017 at 17:03 Discharge Date: Apr 13, 2017 Discharge Disposition: Rehab Principal Diagnosis: Fall, Supratherapeutic INR Problems/Secondary Diagnoses: Parkinson's Disease (Bonita Hall MD) Medication Reconciliation Continued Medications: Amiodarone Hcl (Cordarone) 200 Mg Tab 200 MG PO DAILY, TAB Artificial Tear Ointment (Eye Lubricant) 1 Oin Oin 1 APPLN OPB HS Carbidopa-Levodopa (Sinemet Cr 50-200 mg) 1 Tab Tab 1 TAB PO HS Carbidopa-Levodopa (Carbidopa/Levodopa Odt) 1 Tab Tab 25-250 MG PO TID PRN for PARKINSON'S CONTROL Carbidopa/Levodopa (Sinemet 25MG/100MG) Tab 3 TABS PO QID, TAB GIVE AT 0600, 1000, 1200, AND 1800. Diphenhydramine Hcl (Benadryl) Unknown Strength Cap Unknown Dose PO HS PRN for Sleep, CAP Donepezil Hydrochloride (Donepezil Hcl) 5 Mg Tab 5 MG PO DAILY, 3 Refills Furosemide (Lasix) 40 Mg Tab 40 MG PO DAILY PRN for FLUID RETENTION, TAB Levalbuterol Tartrate (Levalbuterol Tartrate Hfa) 45 Mcg/Act Aer 2 PUFFS INH DAILY PRN for SOB/Wheezing Lisinopril (Prinivil) 5 Mg Tab 5 MG PO DAILY, TAB Melatonin (Kp Melatonin) 3 Mg Tab Unknown Dose PO HS PRN for SL for 30 Days, #30 TAB 2 Refills Memantine (Namenda) 5 Mg Tab 5 MG PO BID, TAB Ranitidine (Zantac) 150 Mg Tab 150 MG PO BID, TAB Selegiline HCl (Selegiline HCl) 5 Mg Tab 5 MG PO BID Discontinued Medications: Warfarin Sod (Jantoven) 2.5 Mg Tab 2.5 MG PO 2XWK, TAB SAT AND SUN Warfarin Sod (Jantoven) 3 Mg Tab 3 MG PO 5XWK, TAB MON-THURSDAY Discharge Exam Review of Systems: Constitutional: No fever, No chills, No sweats Eyes: No worsening of vision ENT: No hearing loss Respiratory: No cough, No wheezing Cardiovascular: No chest pain, No orthopnea Abdomen: No pain, No nausea, No vomiting Musculoskeletal: No joint pain Genitourinary - Female: No dysuria, No urinary frequency, No urinary urgency , No hematuria Neurologic: No memory loss, No paralysis, No weakness Psychiatric: No depression symptoms Endocrine: No fatigue Hematologic / Lymphatic: No abnormal bleeding/bruising Integumentary: + rash, + new/changing skin lesions (hematoma to L flank) Physical Exam: General Appearance: WD/WN, no apparent distress Eyes: normal inspection, PERRL ENT: hearing grossly normal Neck: supple, no JVD Respiratory/Chest: lungs clear, normal breath sounds Cardiovascular: regular rate, rhythm, no murmur, normal peripheral pulses Abdomen / GI: normal bowel sounds, non tender, soft Extremities: no calf tenderness, no pedal edema Neurologic/Psychiatric: alert, normal mood/affect Skin: + pertinent finding (hematoma to L flank, improved significantly since admission) (Bonita Hall MD) Hospital Course HPI: The patient is an 81-year-old female who presents to the emergency department with worsening lethargy, generalized fatigue, flulike symptoms, decreased oral intake due to nausea, and 3 episodes of falls within the past couple days. She fell earlier today while at the [facility], was found to be hypotensive, and sent to the ED for further evaluation. She does have history of UTIs in the past, he has presently is on warfarin for atrial fibrillation. HOSPITAL COURSE: 81 yo F with fall from [facility], with supratherapeutic INR from poor PO intake. Had 2 units PRBC transfusion. Goal is to get home, but will go to rehab to get back to baseline. Acute blood loss anemia requiring 2 units PRBC transfusion Hgb has been stable - continue to follow clinically, periodic Hgb check Warfarin has NOT been restarted - should discuss w/PCP - was on Warfarin for anticoagulation from atrial tachycardia in past Flank Hematoma Improving significantly Coumadin coagulopathy Reversed INR - poor oral intake prior likely was what led to high INR poor PO intake Initially due to nausea from drainage from URI, now appearing poor due to weakness/age/just poor appetite --> continue to follow and encourage PO intake Gram positive bacilli in blood culture Stopped Vancomycin, likely contaminant, no fevers or other signs since stopping abx Cough - Improved Continue Mucinex / Nasal saline, has been beneficial for cough Parkinson's Disease Continuing home med regime - Memantine and Selegiline OT/PT/Speech therapy At baseline has a mild arm tremor Dementia, 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 also discussed coumadin vs NOAC when/if the time comes to resume anticoagulation Dispo Discharge to [facility] for acute rehab Discharged 04/13/17 in good condition POLST form completed, pt a DNR Total Time Spent: Greater than 30 minutes This includes examination of the patient, discharge planning, medication reconciliation, and communication with other providers. (Bonita Hall MD) Resident Physician Supervision Note: I was present with Dr. Hall during the history and exam. I discussed the case with the resident and agree with the findings and plan as documented in the note. Any exceptions or clarifications are listed here: I was able to obtain authorization for inpatient rehabilitation today after a [id number] discussion. [facility] has accepted the patient and she is agreeable to the plan. Documented By: Giuseppe Jean Total Time Spent: Greater than 30 minutes I spent 45 minutes on discharge, including exam, documentation, discussion with case management, call to and subsequent [id number] appeal for inpatient rehabilitation. (Giuseppe Jean.,D.O.) Discharge Instructions Please refer to the electronic Patient Visit Report (Discharge Instructions) for additional information. (Bonita Hall MD) Additional Copies To [facility] Resident Tracking Resident Involvement: Resident Care Provided Care Provided: Adult Hospital Medicine (Bonita Hall MD)
--- NOTE | 2017-04-13 17:14 | Discharge Instructions ---
Discharge Instructions Date of Service Apr 13, 2017. Admission Reason for Admission: Elevated Inr, Hematoma Of Left Flank Discharge Discharge Diagnosis / Problem: Fall, Supratherapeutic INR causing hematoma Discharge Goals Goal(s): Increase independence, Improve disease control Activity Recommendations Activity Level: Assistance Required Therapies: Physical Therapy, Occupational Therapy Weightbearing Status: Left weightbearing (as tolerated), Right weightbearing ( as tolerated) Lifting Limitations: none Exercise/Sports Limitations: none Shower/Bathe: no limitations . Additional Information Patient informed of condition: Yes Advance Directives: Yes DNR: Yes Level of Care: Acute Rehab Communicable Disease: No Prognosis: Improving Jha Catheter: No Instructions / Follow-Up Instructions / Follow-Up Her Warfarin has been STOPPED due to the recent fall. She was transfused 2 units PRBC and 1 unit FFP during admission. Her INR on arrival was 7.1. Her discharge hemoglobin level was 7.9 Recommend discussion starting anti-coagulation with PCP or at [facility] if is still there in a week or two. Current Hospital Diet Patient's current hospital diet: AHA Diet (Heart Healthy) Discharge Diet Recommended Diet: AHA Diet (Heart Healthy) Pending Studies Studies pending at discharge: no Physician Orders On Transfer POLST Discussion: with POLST completion (DNR) Laboratory Results Hemoglobin A1c Test 03/24/17 16:48 Range/Units Estimated Average Glucose 100 mg/dl Hemoglobin A1c 5.1 4.5-5.6 % Lipid Panel Test 01/11/17 05:37 Range/Units Triglycerides Level 130 0-150 mg/dl Cholesterol Level 146 0-200 mg/dl HDL Cholesterol 37 mg/dl Cholesterol/HDL Ratio 3.9 LDL Cholesterol, Calculated 83 mg/dl Medical Emergencies . Who to Call and When: Medical Emergencies: If at any time you feel your situation is an emergency, please call 911 immediately. . Non-Emergent Contact Non-Emergency issues call your: Primary Care Provider . . "Provider Documentation" section prepared by Bonita Hall. . Core Measure Problem Core Measures: None
[2017-04-13 17:21] VITALS: BP 120/77; PULSE 63; TEMP 36.4; O2SAT 99
[2017-08-21] MEDS ORDERED: RIVA1.5T PO (16:22)
[2017-08-21] MEDS ORDERED: GABA-113 PO (16:22)
[2017-08-23] MEDS ORDERED: MRLP17X PO (11:23)
[2017-08-26] MEDS ORDERED: CALC-388 PO (22:22)
[2017-08-26] MEDS ORDERED: ARC5 PO (22:22)
[2017-08-26] MEDS ORDERED: FERR325T5 PO (22:22)
[2017-08-26] MEDS ORDERED: DOCU100C31 PO (22:22)
[2017-08-26] MEDS ORDERED: BIOT50006 PO (22:22)
[2017-08-26] MEDS ORDERED: MELATAB2 PO (22:22)
[2017-08-26] MEDS ORDERED: HYDR-5688 PO (22:22)
[2017-08-26] MEDS ORDERED: FRS/40 PO (22:22)
[2017-08-26] MEDS ORDERED: ACET-749 PO (22:22)
[2017-08-26] MEDS ORDERED: LISI-729 PO (22:22)
[2017-09-02] MEDS ORDERED: GABA-112 PO (13:34)
[2017-09-02] MEDS ORDERED: POLY335019 PO (13:34)
[2017-09-02] MEDS ORDERED: PSYL48.59 PO (13:34)
[2017-10-02] MEDS ORDERED: RXC5 PO (10:29)
== END 2017-04-13 18:15 | DRG 683 ==
LOC: EDBD 13:38 → C.EDA 13:39 → C.2E 17:03 → ENRESERV 17:07 → C.4E 04-06 17:39
PROVIDERS: ADMIT Hospitalist; ATTEND Family Medicine
DX: N17.9 Acute kidney failure, unspecified (principal); D62 Acute posthemorrhagic anemia; E78.5 Hyperlipidemia, unspecified; I10 Essential (primary) hypertension; G20 Parkinson's disease; I95.9 Hypotension, unspecified; S30.1XXA Contusion of abdominal wall, initial encounter; W19.XXXA Unspecified fall, initial encounter; Z79.01 Long term (current) use of anticoagulants

== ENCOUNTER → 2017-05-29 | Outpatient (CLI) | payer OTHER ==
[~2017-05-29] MED LIST changes: +ARC10 PO; -BIOT1CAP3 PO; +BND25 PO; -CALCTAB7 PO; -CHOL1000 PO; +CLON0.5T3 PO; +FERR1TAB23 PO; +FRS/40 PO; +GABA1CAP4 PO; +MELA1TAB5 PO; +SENNTAB23 PO; -WARF2.5T8 PO; +XRL20 PO
== END | disposition home or self-care (01) ==
LOC: C.LAB1850 14:13
PROVIDERS: ATTEND Internal Medicine Clinical Cardiac Electrophysiology
DX: A49.9 Bacterial infection, unspecified (principal); I48.91 Unspecified atrial fibrillation

== ENCOUNTER → 2017-06-26 | Outpatient (CLI) | payer OTHER ==
[2017-06-26 17:37] LABS: BLOOD UREA NITROGEN 23 mg/dl (7-18); BUN/CREATININE RATIO 16.4 (10-20)
== END | disposition home or self-care (01) ==
LOC: C.LABPBG 11:10
PROVIDERS: ATTEND Family Medicine
DX: I48.91 Unspecified atrial fibrillation (principal)

== ENCOUNTER → 2017-07-02 | Outpatient (CLI) | payer OTHER ==
[~2017-07-02] MED LIST changes: +GADAVIST IV PRN
--- NOTE | 2017-07-02 18:02 | DIAGNOSTIC IMAGING REPORT ---
MRI OF THE LUMBAR SPINE WITH AND WITHOUT CONTRAST CLINICAL HISTORY: Severe low back pain radiating into both lower extremities. Gait disturbance. COMPARISON STUDY: Lumbar spine radiographs July 22, 2008. TECHNIQUE: Utilizing a 1.5 Jennifer magnet and dedicated coil, multiplanar, multiecho imaging of the lumbar spine was performed before and after uneventful IV administration of 9 mL of Gadavist. FINDINGS: For purposes of numbering on this exam, the L5-S1 disc space is assigned to axial image 23 of 25. There is 6 mm anterolisthesis of L4 and L5 is likely due to facet arthrosis. Slight loss of height of the superior endplate of L5 is chronic. There is no acute compression fracture within the lumbar spine. No intracanalicular mass or fluid collection is present. Conus terminated at T12-L1 level. A 7 mm enhancing focus along the superior endplate of L5 is indeterminate although likely benign. A few hemangiomas are noted. L1-2: There is mild disc bulge. The central canal and neural foramina patent. L2-3: There is facet arthrosis and ligamentous hypertrophy. The central canal and neural foramen are patent. L3-4: There is disc bulge, ligamentous hypertrophy and facet arthrosis. This results in severe narrowing of the central canal, lateral recesses and the neural foramen. L4-5: There is grade I anterolisthesis with uncovering of the disc, ligamentous hypertrophy and facet arthrosis. There is severe narrowing of the central, lateral recesses and left neural foramen. L5-S1: There is facet arthrosis. There is disc bulge with a small central disc protrusion. Central canal is patent. There is mild during of the lateral recesses and left neural foramen with severe narrowing of the right neural foramen. IMPRESSION: 1. Marked central canal stenosis at L4-L5 due to grade I anterolisthesis, uncovering of the disc, facet arthrosis and ligamentous hypertrophy. Severe left neural foraminal narrowing at this level. 2. Severe central canal stenosis at L3-L4, as described above. 3. Severe right neural foraminal stenosis at L5-S1. 4. No acute lumbar spine fracture. Electronically signed by: Joaquín Bansal M.D. 07/02/2017 6:01 PM Dictated Date/Time: 07/02/2017 5:50 PM
== END | disposition home or self-care (01) ==
LOC: C.MRI 16:21
PROVIDERS: ATTEND Family Medicine
DX: M48.06 Spinal stenosis, lumbar region (principal); M79.606 Pain in leg, unspecified; R26.9 Unspecified abnormalities of gait and mobility

== ENCOUNTER 2017-08-06 21:02 | Observation (INO) | payer OTHER ==
[~2017-08-06] VITALS: Ht 160 cm; Wt 86.0 kg
[~2017-08-06 21:02] MED LIST changes: -ARC10 PO; -CLON0.5T3 PO; -FERR1TAB23 PO; -GABA1CAP4 PO; -GADAVIST IV PRN; -MULT-190 PO; -SENNTAB23 PO; -XRL20 PO
[2017-08-06] MEDS ORDERED: MoRPHine SULFATE 4 MG/ML 1 ML CARP\\VIAL IV STA ×2 (21:37→23:08)
[2017-08-06] MEDS ORDERED: ONDANSETRON INJ 2 MG/ML 2 ML VIAL IV STA (21:37)
[2017-08-06] MEDS ORDERED: ONDANSETRON INJ 2 MG/ML 2 ML VIAL ONE (21:53)
[2017-08-06] MEDS ORDERED: MoRPHine SULFATE 4 MG/ML 1 ML CARP\\VIAL ONE (21:54)
--- NOTE | 2017-08-06 22:55 | DIAGNOSTIC IMAGING REPORT ---
LUMBAR SPINE WITHOUT CLINICAL HISTORY: 82 years-old Female presenting with severe lbp down left leg after fall. TECHNIQUE: Multidetector CT of the lumbar spine was performed without the use of intravenous contrast. IV contrast: None. A dose lowering technique was used consistent with the principles of ALARA (as low as reasonably achievable). COMPARISON: MR from 07/02/2017. CT DOSE (mGy.cm): The estimated cumulative dose is 987.24 mGy.cm. FINDINGS: Welder Fitter Apprentice topogram: Gaseous distended colon with abnormal radiolucency in the right upper quadrant concerning for free intra-abdominal gas Large stool burden. Normal lumbar lordosis. Mild vertebral body height loss of L5, unchanged. 7 mm of grade 1 anterolisthesis of L4 on L5 also unchanged. Intervertebral disc height loss with vacuum disc phenomenon noted from L3-4 through L5-S1. No acute fracture or subluxation. Multilevel degenerative changes of the lumbar spine further detailed below: L1-2: Disc bulge with posterior osteophytes result in effacement of the anterior thecal sac as noted on prior MR. Mild bilateral neural foraminal narrowing. L2-3: Disc bulge, ligamentum flavum thickening, facet arthropathy result in minimal circumferential narrowing of the spinal canal. Moderate bilateral neural foraminal narrowing. L3-4: Disc bulge, ligament flavum thickening, and facet arthropathy result in moderate circumferential narrowing of the spinal canal is noted on prior MR. Severe bilateral neural foraminal narrowing. L4-5: Anterolisthesis with disc bulge and facet arthropathy result in mild spinal canal narrowing. Moderate right and severe left neural foraminal narrowing. L5-S1: Disc bulge and facet arthropathy result in moderate bilateral neural foraminal narrowing. No significant spinal canal narrowing. Paraspinal soft tissues within normal limits. Mild subcutaneous edema in the posterior back. Mild fatty infiltration of the paraspinal musculature. Atherosclerosis noted. IMPRESSION: 1. No acute osseous injury of the lumbar spine. 2. Multilevel degenerative changes appear very similar to the most recent MR from 07/02/2017 with the most severe degree of spinal canal narrowing at L3-4 and L4-5 and very degrees of neural foraminal narrowing as above. 3. Welder Fitter Apprentice radiograph concerning for free intra-abdominal gas. Dedicated upright chest x-ray or abdominal radiograph recommended to exclude free air. 4. These findings were discussed with MONIKA Villa by Dr. Angel at 10:50 PM on 08/06/2017. Electronically signed by: Alban Angel M.D. 08/06/2017 10:54 PM Dictated Date/Time: 08/06/2017 10:40 PM
[2017-08-06] MEDS ORDERED: GABA1CAP4 PO (23:15)
[2017-08-06] MEDS ORDERED: FERR1TAB23 PO (23:15)
[2017-08-06] MEDS ORDERED: SENNTAB23 PO (23:15)
[2017-08-06] MEDS ORDERED: MULT-190 PO (23:15)
[2017-08-06] MEDS ORDERED: CLON0.5T3 PO (23:15)
[2017-08-06] MEDS ORDERED: ARC10 PO (23:15)
[2017-08-06] MEDS ORDERED: XRL20 PO (23:15)
--- NOTE | 2017-08-06 23:26 | DIAGNOSTIC IMAGING REPORT ---
ABDOMEN 2VIEW W/PA CHEST RTN CLINICAL HISTORY: 82 years-old Female presenting with findings concerning on CT for free air. TECHNIQUE: PA view of the chest and supine and upright views of the abdomen were obtained. COMPARISON: Chest x-ray from 04/07/[address] of the lumbar spine performed earlier the same day. FINDINGS: Atherosclerosis of aortic arch. Cardiac silhouette normal in size. Lungs and pleural spaces clear. Degenerative changes of the bilateral acromioclavicular joints and potentially also the glenohumeral joints. Prominent gas filled colon beneath the right hemidiaphragm. The stomach appears distended with ingested material and gas. Moderate stool burden. No evidence of free intraperitoneal gas. Degenerative changes of the lumbar spine. Degenerative changes of the hips may also be present. IMPRESSION: 1. No evidence of free intra-abdominal gas. 2. Prominent gas-filled colon beneath the right hemidiaphragm. 3. Moderate stool burden. 4. Moderate gastric distention with ingested material and gas. 5. No acute cardiopulmonary disease. Electronically signed by: Alban Angel M.D. 08/06/2017 11:25 PM Dictated Date/Time: 08/06/2017 11:22 PM
[2017-08-07] MEDS ORDERED: POLYETHYLENE (MIRALAX) 17 GM PACK PO PRN (01:00)
[2017-08-07] MEDS ORDERED: MAGNESIUM HYDROXIDE SUSP 30 ML UDC PO PRN (01:00)
[2017-08-07] MEDS ORDERED: ALUMINUM/MAGNESIUM/SIMETH (MAALOX MAX) 30 ML UDC PO PRN (01:00)
[2017-08-07] MEDS ORDERED: ONDANSETRON INJ 2 MG/ML 2 ML VIAL IV PRN (01:00)
[2017-08-07] MEDS ORDERED: LEValbuterol HFA 15GM INHALER INH PRN (01:00)
[2017-08-07] MEDS ORDERED: D5W AND NSS 1,000 ML IV SCH (01:30)
[2017-08-07 01:38] VITALS: BP 173/75; PULSE 68; TEMP 36.6; O2SAT 96; Ht 160 cm; Wt 86.0 kg
--- NOTE | 2017-08-07 02:05 | History and Physical ---
History & Physical Date & Time of Service: Aug 07, 2017 at 01:25 Chief Complaint: Severe Pain, Treating For Spinal Stenosis Primary Care Physician: Edwige Mason DO History of Present Illness Source: patient 82 y/o F Hx advanced Parkinson disease, PAF, chronic anemia, HTN, dementia, lumbar stenosis with chronic LBP. Pt presents with severe lower back pain. She recently had a steroid injection and then suffered a fall 2 days prior. No acute bony injuries occurred, however, she has extensive bruising of her R hand and has had worsening back pain since that time. She is currently unable to control her pain and has further impairment of mobility that is already limited by her Parkinson. Initial labs are notable for JENNIFER. Past Medical/Surgical History 1) Parkinson disease 2) Dementia 3) Normocytic anemia (Hb 8.0) 4) Paroxysmal AF 5) Lumbar stenosis - chronic lower back pain 6) HTN Family History No pertinent family history Noncontributory Social History Smoking Status: Never Smoker Drug Use: none Marital Status: Housing status: lives with family Occupational Status: retired Multi-Drug Resistant Organisms History of MDRO: No Allergies Coded Allergies: Succinylcholine (Verified Allergy, Severe, 08/06/17) Home Medications Scheduled Amiodarone Hcl (Cordarone), 200 MG PO DAILY Artificial Tear Ointment (Eye Lubricant), 1 APPLN OPB HS Carbidopa-Levodopa (Sinemet Cr 50-200 mg), 1 TAB PO HS Carbidopa/Levodopa (Sinemet 25MG/100MG), 3 TABS PO QID Clonazepam (Klonopin), 0.25 MG PO HS Donepezil HCl (Donepezil HCl), 10 MG PO HS Ferrous Sulfate (Iron), 325 MG PO DAILY Gabapentin (Gabapentin), 300 MG PO HS Lisinopril (Prinivil), 5 MG PO DAILY Memantine (Namenda), 5 MG PO BID Ocuvite Preservision (Ocuvite Preservision), 1 TAB PO DAILY Ranitidine (Zantac), 150 MG PO BID Rivaroxaban (Xarelto), 20 MG PO HS Selegiline HCl (Selegiline HCl), 5 MG PO BID Sennosides-Docusate Sodium (Stool Softener), 1 TAB PO DAILY Scheduled PRN Carbidopa-Levodopa (Carbidopa/Levodopa Odt), 25-250 MG PO TID PRN for PARKINSON' S CONTROL Furosemide (Lasix), 40 MG PO DAILY PRN for FLUID RETENTION Levalbuterol Tartrate (Levalbuterol Tartrate Hfa), 2 PUFFS INH DAILY PRN for SOB /Wheezing Review of Systems Constitutional: No fever, No chills, No sweats Eyes: No worsening of vision ENT: No hearing loss, No unusual epistaxis, No nasal symptoms Respiratory: No cough, No sputum, No wheezing Cardiovascular: No chest pain, No orthopnea, No PND Abdomen: No pain, No nausea, No vomiting Musculoskeletal: + joint pain, + muscle pain, + problem reported (Severe LBP as above) Genitourinary - Female: No dysuria, No urinary frequency, No urinary urgency Neurologic: No memory loss, No paralysis, No weakness Psychiatric: No depression symptoms Endocrine: No fatigue Hematologic / Lymphatic: No abnormal bleeding/bruising Integumentary: No rash Allergic / Immunologic: No environmental allergies Physical Exam Vital Signs Date Time Temp Pulse Resp B/P (MAP) Pulse Ox O2 Delivery O2 Flow Rate FiO2 08/07/17 01:05 57 21 98 08/07/17 01:04 57 08/07/17 01:00 127/64 08/07/17 00:52 57 13 99 08/07/17 00:37 58 14 99 08/07/17 00:30 120/63 08/07/17 00:22 58 14 99 08/07/17 00:07 60 16 99 08/07/17 00:02 60 15 99 08/07/17 00:00 119/63 08/06/17 23:47 63 17 100 08/06/17 23:32 60 17 96 08/06/17 23:30 140/77 08/06/17 22:57 62 19 97 08/06/17 22:52 64 18 98 08/06/17 22:31 135/71 08/06/17 22:00 174/70 08/06/17 21:52 68 19 100 08/06/17 21:37 71 100 08/06/17 21:32 65 18 100 Room Air 08/06/17 21:30 159/76 08/06/17 21:29 62 08/06/17 21:21 180/77 08/06/17 21:04 36.3 69 20 158/79 97 Room Air General Appearance: + pertinent finding (Lethargic elderly F - AAO x 2 - no distress following IV narcotics) Head: normocephalic Eyes: normal inspection ENT: normal ENT inspection, pharynx normal Neck: supple, thyroid normal Respiratory/Chest: chest non-tender, lungs clear, normal breath sounds Cardiovascular: regular rate, rhythm, no edema, no gallop Abdomen/GI: normal bowel sounds, non tender, soft Back: + pertinent finding (ROM is limited - no significant point tenderness) Extremities/Musculoskelatal: normal inspection, no calf tenderness, normal capillary refill, + pedal edema (mild edema) Neurologic/Psych: 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 No acute osseous injury of the lumbar spine. 2. Multilevel degenerative changes appear very similar to the most recent MR from 07/02/2017 with the most severe degree of spinal canal narrowing at L3-4 and L4-5 and very degrees of neural foraminal narrowing as above. Impression Assessment and Plan 82 y/o F Hx advanced Parkinson disease, PAF, chronic anemia, HTN, dementia, lumbar stenosis with chronic LBP. Pt presents with severe lower back pain. She recently had a steroid injection and then suffered a fall 2 days prior. No acute bony injuries occurred, however, she has extensive bruising of her R hand and has had worsening back pain since that time. She is currently unable to control her pain and has further impairment of mobility that is already limited by her Parkinson. Initial labs are notable for JENNIFER. 1) Lower back pain - she has been following in a pain clinic but has not responded to recent interventions including steroid injections and epidurals. We will consult the ortho spine service. OT/PT and pain management will follow if intervention is not indicated. 2) JENNIFER - IVF provided - Lisinopril held - pt takes Lasix PRN only for LE edema. 3) AF - Sinus at present - continue amiodarone , Xarelto 4) Chronic anemia - Hb approximately at baseline although she is dehydrated so we will trend AM after IVF provided. 5) Parkinson disease - continue Sinemet 6) HTN - Lisinopril held - will provide sub if needed. Full code - anticoagulated with Xarelto Total time for this admit including review of labs, meds, imaging, records - discussion with pt, family, ER attending - 37min Level of Care Med/Surg Resuscitation Status FULL RESUSCITATION VTE Prophylaxis VTE Risk Assessment Done? Y/N: Yes Risk Level: Moderate Given or contraindicated: Other Anticoagulation
[2017-08-07] MEDS: HYDROmorphone INJ 0.5 MG/0.5 ML SYR IV PRN ×2 (02:07→10:01)
[2017-08-07 03:43] VITALS: BP 130/68
--- NOTE | 2017-08-07 03:50 | EMERGENCY ROOM VISIT NOTE ---
History First contact with patient: 21:26 Chief Complaint: PAIN (GENERALIZED) Stated Complaint: SEVERE PAIN, TREATING FOR SPINAL STENOSIS History of Present Illness The patient is a 82 year old female who presents to the Emergency Room with complaints of severe low back pain that raised her left leg for the past few days who has a history of spinal stenosis. Patient sees pain management. She' s gotten OKSANA injections and SI injections in the past. She had a SI injection on Thursday. Patient states Thursday she fell as she has Parkinson's tripped and lost her balance. She landed on her . Patient states since yesterday she's had severe low back pain that radiates down her left leg. She ambulates with a walker. Pain currently 8 out of 10. Movement makes it worse and nothing makes it better. Patient has tried T3 with no improvement of symptoms. Patient saw the family care doctor yesterday and had a hand x-ray. Patient denies chest pain, dyspnea, abdominal pain, numbness, tingling, loss of bowel or bladder control, saddle anesthesia, leg weakness. No head injury or loss of conscious. No neck pain. Review of Systems See HPI for pertinent positives & negatives. A total of 10 systems reviewed and were otherwise negative. Past Medical/Surgical History Medical Problems: (1) C. difficile colitis (2) Chronic lower back pain (3) Hyperlipidemia (4) Hyperosmolality and hypernatremia (5) Hypertension (6) Parkinsons Family History No pertinent family history Social History Smoking Status: Never Smoker Alcohol Use: none Drug Use: none Marital Status: Housing Status: lives with significant other Occupation Status: retired Current/Historical Medications Scheduled Amiodarone Hcl (Cordarone), 200 MG PO DAILY Artificial Tear Ointment (Eye Lubricant), 1 APPLN OPB HS Carbidopa-Levodopa (Sinemet Cr 50-200 mg), 1 TAB PO HS Carbidopa/Levodopa (Sinemet 25MG/100MG), 3 TABS PO QID Clonazepam (Klonopin), 0.25 MG PO HS Donepezil HCl (Donepezil HCl), 10 MG PO HS Ferrous Sulfate (Iron), 325 MG PO DAILY Gabapentin (Gabapentin), 300 MG PO HS Lisinopril (Prinivil), 5 MG PO DAILY Memantine (Namenda), 5 MG PO BID Ocuvite Preservision (Ocuvite Preservision), 1 TAB PO DAILY Ranitidine (Zantac), 150 MG PO BID Rivaroxaban (Xarelto), 20 MG PO HS Selegiline HCl (Selegiline HCl), 5 MG PO BID Sennosides-Docusate Sodium (Stool Softener), 1 TAB PO DAILY Scheduled PRN Carbidopa-Levodopa (Carbidopa/Levodopa Odt), 25-250 MG PO TID PRN for PARKINSON' S CONTROL Furosemide (Lasix), 40 MG PO DAILY PRN for FLUID RETENTION Levalbuterol Tartrate (Levalbuterol Tartrate Hfa), 2 PUFFS INH DAILY PRN for SOB /Wheezing Physical Exam Vital Signs Date Time Temp Pulse Resp B/P (MAP) Pulse Ox O2 Delivery O2 Flow Rate FiO2 08/07/17 01:00 127/64 08/07/17 00:52 57 13 99 08/07/17 00:37 58 14 99 08/07/17 00:30 120/63 08/07/17 00:22 58 14 99 08/07/17 00:07 60 16 99 08/07/17 00:02 60 15 99 08/07/17 00:00 119/63 08/06/17 23:47 63 17 100 08/06/17 23:32 60 17 96 08/06/17 23:30 140/77 08/06/17 22:57 62 19 97 08/06/17 22:52 64 18 98 08/06/17 22:31 135/71 08/06/17 22:00 174/70 08/06/17 21:52 68 19 100 08/06/17 21:37 71 100 08/06/17 21:32 65 18 100 Room Air 08/06/17 21:30 159/76 08/06/17 21:29 62 08/06/17 21:21 180/77 08/06/17 21:04 36.3 69 20 158/79 97 Room Air Physical Exam VITALS: Vitals are noted on the nurse's note and reviewed by myself. Vital signs hypertensive. GENERAL: Pleasant female who appears in pain, nondiaphoretic, well-developed well-nourished. SKIN: The skin was without rashes, erythema, edema, or bruising. There is no tenting of the skin. Capillary reflex less than 2 seconds. HEAD: Normocephalic atraumatic. EARS: External auditory canals clear, tympanic membranes pearly stephens without erythema or effusion bilaterally. EYES: Pupils equal round and reactive to light and accommodation. Conjunctivae without injection, sclerae without icterus. Extraocular movements intact. NOSE: Patent, turbinates without inflammation or discharge. MOUTH: Mucous membranes moist. Pharynx without erythema or exudate. Uvula midline. Airway patent. Tongue does not deviate. NECK: Supple without nuchal rigidity. No lymphadenopathy. No thyromegaly. Cervical spine is nontender. No JVD. HEART: Regular rate and rhythm LUNGS: Clear to auscultation bilaterally without wheezes, rales or rhonchi. No dullness to percussion. No retractions or accessory muscle use. ABDOMEN: Positive bowel sounds x 4. Normal tympanic percussion. Soft, nontender, without masses or organomegaly. Roach sign negative. No guarding or rebound tenderness. MUSCULOSKELETAL: No muscle atrophy, erythema, or edema noted. No thoracic tenderness on exam. Minimal lower lumbar tenderness. Pelvis stable. Negative straight leg raise. Bilateral legs full range of motion nontender to palpation.Strength 5/5 throughout. NEURO: Patient was alert and oriented to person place and time. Normal sensation to light and sharp touch. No focal neurological deficits. Medical Decision & Procedures Medications Administered Medications (Trade) Dose Ordered Sig/[facility] Route Start Time Stop Time Status Last Admin Dose Admin Morphine Sulfate (MoRPHine SULFATE INJ) 4 mg NOW STAT IV 08/06/17 21:37 08/06/17 22:02 DC 08/06/17 22:00 4 MG Ondansetron HCl (Zofran Inj) 4 mg NOW STAT IV 08/06/17 21:37 08/06/17 22:02 DC 08/06/17 21:58 4 MG Polyethylene (Miralax Powder Packet) 17 gm DAILY PRN PO 08/07/17 01:00 09/06/17 00:59 08/07/17 02:07 17 GM Hydromorphone HCl (Dilaudid Inj) 0.5 mg Q3H PRN IV 08/07/17 01:00 08/21/17 00:59 08/07/17 02:07 0.5 MG ED Course Prior records/ancillary studies reviewed. Triage Nursing notes reviewed. Additional history obtained from family. The patient's history was concerning for back pain. Differential diagnosis: Etiologies such as musculoskeletal, disc herniation, fracture, aortic disease, metastatic disease, cord compression, discitis, infection, renal colic, gastrointestinal, acute exacerbation of chronic back pain, sciatica, cauda equina, as well as others were entertained. Physical findings: As above. No focal neurologic findings noted. ER treatment provided: Morphine, Zofran, morphine On reassessment the patient felt better. Diagnostics interpreted by me: Imaging studies: ABDOMEN 2VIEW W/PA CHEST RTN CLINICAL HISTORY: 82 years-old Female presenting with findings concerning on CT for free air. TECHNIQUE: PA view of the chest and supine and upright views of the abdomen were obtained. COMPARISON: Chest x-ray from 04/07/[address] of the lumbar spine performed earlier the same day. FINDINGS: Atherosclerosis of aortic arch. Cardiac silhouette normal in size. Lungs and pleural spaces clear. Degenerative changes of the bilateral acromioclavicular joints and potentially also the glenohumeral joints. Prominent gas filled colon beneath the right hemidiaphragm. The stomach appears distended with ingested material and gas. Moderate stool burden. No evidence of free intraperitoneal gas. Degenerative changes of the lumbar spine. Degenerative changes of the hips may also be present. IMPRESSION: 1. No evidence of free intra-abdominal gas. 2. Prominent gas-filled colon beneath the right hemidiaphragm. 3. Moderate stool burden. 4. Moderate gastric distention with ingested material and gas. 5. No acute cardiopulmonary disease. LUMBAR SPINE WITHOUT CLINICAL HISTORY: 82 years-old Female presenting with severe lbp down left leg after fall. TECHNIQUE: Multidetector CT of the lumbar spine was performed without the use of intravenous contrast. IV contrast: None. A dose lowering technique was used consistent with the principles of ALARA (as low as reasonably achievable). COMPARISON: MR from 07/02/2017. CT DOSE (mGy.cm): The estimated cumulative dose is 987.24 mGy.cm. FINDINGS: Brick Paver topogram: Gaseous distended colon with abnormal radiolucency in the right upper quadrant concerning for free intra-abdominal gas Large stool burden. Normal lumbar lordosis. Mild vertebral body height loss of L5, unchanged. 7 mm of grade 1 anterolisthesis of L4 on L5 also unchanged. Intervertebral disc height loss with vacuum disc phenomenon noted from L3-4 through L5-S1. No acute fracture or subluxation. Multilevel degenerative changes of the lumbar spine further detailed below: L1-2: Disc bulge with posterior osteophytes result in effacement of the anterior thecal sac as noted on prior MR. Mild bilateral neural foraminal narrowing. L2-3: Disc bulge, ligamentum flavum thickening, facet arthropathy result in minimal circumferential narrowing of the spinal canal. Moderate bilateral neural foraminal narrowing. L3-4: Disc bulge, ligament flavum thickening, and facet arthropathy result in moderate circumferential narrowing of the spinal canal is noted on prior MR. Severe bilateral neural foraminal narrowing. L4-5: Anterolisthesis with disc bulge and facet arthropathy result in mild spinal canal narrowing. Moderate right and severe left neural foraminal narrowing. L5-S1: Disc bulge and facet arthropathy result in moderate bilateral neural foraminal narrowing. No significant spinal canal narrowing. Paraspinal soft tissues within normal limits. Mild subcutaneous edema in the posterior back. Mild fatty infiltration of the paraspinal musculature. Atherosclerosis noted. IMPRESSION: 1. No acute osseous injury of the lumbar spine. 2. Multilevel degenerative changes appear very similar to the most recent MR from 07/02/2017 with the most severe degree of spinal canal narrowing at L3-4 and L4-5 and very degrees of neural foraminal narrowing as above. 3. Brick Paver radiograph concerning for free intra-abdominal gas. Dedicated upright chest x-ray or abdominal radiograph recommended to exclude free air. 4. These findings were discussed with MONIKA Villa by Dr. Angel at 10:50 PM on 08/06/2017. Electronically signed by: Alban Angel M.D. Consultation: A consultation was placed with the hospitalist, . The case was discussed and diagnostics were reviewed. He will evaluate the patient for possible admission. This appears to be consistent with intractable lumbar radiculopathy. Patient had no acute fracture on CT imaging. Radiology asked for further imaging and this is ordered to rule out free air or obstruction secondary to abnormal rap artist film on CT. This was negative. Patient was reassessed multiple times and was still in severe mild pain despite multiple pain medications. Patient does not feel comfortable going home and I do not believe she is a good candidate to be discharged home with her severe back pain on narcotics as she has Parkinson's disease and ambulates with a walker. She has already had 1 fall this week. She will be evaluated by medicine for possible admission. By the evaluation outlined above emergent etiologies such as fracture, aortic disease, metastatic disease, infection, renal colic, gastrointestinal, cord compression, cauda equina, as well as others were deemed relatively unlikely. The pt informed about the findings as listed above. All questions were answered and pleased with the treatment. Case reviewed with my attending Medical Decision As above Medication Reconcilliation Current Medication List: was personally reviewed by me Blood Pressure Screening Patient's blood pressure: Elevated blood pressure Blood pressure disposition: Elevated BP felt to be situational Impression Primary Impression: Intractable low back pain Additional Impression: Fall Departure Information Dispostion Being Evaluated By Hospitalist Condition FAIR Referrals Edwige Mason DO (PCP) Patient Instructions [facility] Problem Qualifiers
[2017-08-07] MEDS ORDERED: IV FLUIDS COMPLETED PRN (04:15)
[2017-08-07] MEDS: CARBIDOPA/LEVODOPA 25/100MG TAB PO SCH ×4 (06:07→18:20)
[2017-08-07 07:28] VITALS: BP 145/71; PULSE 55; TEMP 36.4; O2SAT 94
[2017-08-07 08:02] LABS: INR 1.1 (0.9-1.1); PROTHROMBIN TIME (PATIENT) 11.4 SECONDS (9.0-12.0)
[2017-08-07 08:16] LABS: MEAN CELL VOLUME 89.6 fL (80-100); MEAN CORPUSCULAR HEMOGLOBIN 28.9 pg (25-34); MEAN CORPUSCULAR HGB CONC 32.2 g/dl (32-36); MEAN PLATELET VOLUME 10.9 fL (7.4-10.4); PLATELET COUNT 153 K/uL (130-400); RED BLOOD COUNT 4.02 M/uL (4.2-5.4); WHITE BLOOD COUNT 4.66 K/uL (4.8-10.8)
[2017-08-07 08:18] LABS: BUN/CREATININE RATIO 25.8 (10-20); CALCIUM 8.7 mg/dl (8.5-10.1); CREATININE 1.2 mg/dl (0.60-1.20); MAGNESIUM 2.2 mg/dl (1.8-2.4); POTASSIUM 4.2 mmol/L (3.5-5.1)
[2017-08-07] MEDS ORDERED: LISINOPRIL 5 MG TAB PO SCH (09:00)
[2017-08-07] MEDS: AMIODARONE 200 MG TAB PO SCH (09:45)
[2017-08-07] MEDS: FERROUS SULFATE 325 MG TAB PO SCH (09:46)
[2017-08-07] MEDS: SELEGILINE HCL 5 MG CAP PO SCH ×2 (09:46→21:40)
[2017-08-07] MEDS: DOCUSATE SODIUM/SENNA 50/8.6MG TAB PO SCH (09:47)
[2017-08-07] MEDS: MEMANTINE 5 MG TAB PO SCH ×2 (09:47→21:41)
[2017-08-07] MEDS: RANITIDINE HCL 150 MG TAB PO SCH ×2 (09:48→21:42)
--- NOTE | 2017-08-07 12:56 | Orthopedic Consultation ---
Orthopedic Consultation Date of Consultation: Aug 07, 2017. Attending Physician: Angel Bennett M.D. Reason for Consultation: Back and leg pain History of Present Illness Very pleasant 82-year-old female that's a long-standing history of back issues including neurogenic claudication. She is undergone care with interventional pain management. Unfortunately he has not been able to control her most recent symptoms. For the past several weeks she's had fairly incapacitating back and left leg pain radiates the left buttock posterior lateral thigh below the knee. It is exacerbated by ambulation. Right lower extremities sometimes affected but to a much lesser degree. She denies any changes in bowel bladder function. She is currently living with her daughter. She does use a walker to ambulate. This is typical for her. She has been diagnosed with Parkinson's for 5 years ago. Past Medical/Surgical History Medical Problems: (1) Anemia Status: Acute (2) Atrial fibrillation with RVR Status: Acute (3) Atrial fibrillation with RVR Status: Acute (4) Colitis Status: Acute (5) Constipation Status: Acute (6) Elevated INR Status: Acute (7) Elevated INR Status: Acute (8) Fall Status: Acute (9) Hematoma of left flank Status: Acute (10) Hypernatremia Status: Acute (11) Hypotension Status: Acute (12) Intractable low back pain Status: Acute (13) Left sided chest pain Status: Acute (14) Proctitis Status: Acute (15) UTI (urinary tract infection) Status: Acute (16) UTI (urinary tract infection) Status: Acute (17) Weakness Status: Acute (18) Weakness Status: Acute (19) Weakness Status: Acute (20) Weakness generalized Status: Acute Family History No pertinent family history Social History Smoking Status: Never Smoker Drug Use: none Marital Status: Housing Status: lives with significant other Occupation Status: retired Allergies Coded Allergies: Succinylcholine (Verified Allergy, Severe, 08/06/17) Home Medications Scheduled Amiodarone Hcl (Cordarone), 200 MG PO DAILY Artificial Tear Ointment (Eye Lubricant), 1 APPLN OPB HS Carbidopa-Levodopa (Sinemet Cr 50-200 mg), 1 TAB PO HS Carbidopa/Levodopa (Sinemet 25MG/100MG), 3 TABS PO QID Clonazepam (Klonopin), 0.25 MG PO HS Donepezil HCl (Donepezil HCl), 10 MG PO HS Ferrous Sulfate (Iron), 325 MG PO DAILY Gabapentin (Gabapentin), 300 MG PO HS Lisinopril (Prinivil), 5 MG PO DAILY Memantine (Namenda), 5 MG PO BID Ocuvite Preservision (Ocuvite Preservision), 1 TAB PO DAILY Ranitidine (Zantac), 150 MG PO BID Rivaroxaban (Xarelto), 20 MG PO HS Selegiline HCl (Selegiline HCl), 5 MG PO BID Sennosides-Docusate Sodium (Stool Softener), 1 TAB PO DAILY Scheduled PRN Carbidopa-Levodopa (Carbidopa/Levodopa Odt), 25-250 MG PO TID PRN for PARKINSON' S CONTROL Furosemide (Lasix), 40 MG PO DAILY PRN for FLUID RETENTION Levalbuterol Tartrate (Levalbuterol Tartrate Hfa), 2 PUFFS INH DAILY PRN for SOB /Wheezing Current Inpatient Medications Current Inpatient Medications Medications (Trade) Dose Ordered Sig/Geronimo Route Start Time Stop Time Status Last Admin Dose Admin Amiodarone HCl (Cordarone Tab) 200 mg DAILY PO 08/07/17 09:00 09/06/17 08:59 08/07/17 09:45 200 MG Artificial Tears (Lacri-Lube Oph Oint) 1 appln HS OPB 08/07/17 21:00 09/06/17 20:59 Carbidopa/Levodopa (Sinemet Cr 50/ 200MG Tab) 1 tab HS PO 08/07/17 21:00 09/06/17 20:59 Carbidopa/Levodopa (Sinemet 25/ 100MG Tab) 3 tab QID@0600,1000,1200,1800 PO 08/07/17 06:00 09/06/17 05:59 08/07/17 12:06 3 TAB Clonazepam (Klonopin Tab) 0.25 mg HS PO 08/07/17 21:00 09/06/17 20:59 Donepezil HCl (Aricept Tab) 10 mg HS PO 08/07/17 21:00 09/06/17 20:59 Gabapentin (Neurontin Cap) 300 mg HS PO 08/07/17 21:00 09/06/17 20:59 Levalbuterol (Xopenex Hfa Inhaler) 2 puffs DAILY PRN INH 08/07/17 01:00 09/06/17 00:59 Memantine (Namenda Tab) 5 mg BID PO 08/07/17 09:00 09/06/17 08:59 08/07/17 09:47 5 MG Ranitidine HCl (zANTac TAB) 150 mg BID PO 08/07/17 09:00 09/06/17 08:59 08/07/17 09:48 150 MG Rivaroxaban (Xarelto Tab) 20 mg HS PO 08/07/17 21:00 09/06/17 20:59 Senna/Docusate Sodium (Senokot S Tab) 1 tab DAILY PO 08/07/17 09:00 09/06/17 08:59 08/07/17 09:47 1 TAB Ferrous Sulfate (Feosol Tab) 325 mg DAILY PO 08/07/17 09:00 09/06/17 08:59 08/07/17 09:46 325 MG Selegiline HCl (Eldepryl Cap) 5 mg BID PO 08/07/17 09:00 09/06/17 08:59 08/07/17 09:46 5 MG Acetaminophen (Tylenol Tab) 650 mg Q4H PRN PO 08/07/17 01:00 09/06/17 00:59 Al Hydrox/Mg Hydrox/Simethicone (Maalox Max Susp) 15 ml Q4H PRN PO 08/07/17 01:00 09/06/17 00:59 Magnesium Hydroxide (Milk Of Magnesia Susp) 30 ml Q6H PRN PO 08/07/17 01:00 09/06/17 00:59 Polyethylene (Miralax Powder Packet) 17 gm DAILY PRN PO 08/07/17 01:00 09/06/17 00:59 08/07/17 02:07 17 GM Ondansetron HCl (Zofran Inj) 4 mg Q6H PRN IV 08/07/17 01:00 09/06/17 00:59 Hydromorphone HCl (Dilaudid Inj) 0.5 mg Q3H PRN IV 08/07/17 01:00 08/21/17 00:59 08/07/17 10:01 0.5 MG Miscellaneous (Iv Fluids Completed) 1 ea PRN PRN N/A 08/07/17 04:15 08/07/18 04:14 08/07/17 12:07 1 EA Physical Exam Date Time Temp Pulse Resp B/P (MAP) Pulse Ox O2 Delivery O2 Flow Rate FiO2 08/07/17 07:30 Room Air 08/07/17 07:28 36.4 55 18 145/71 (95) 94 Room Air 08/07/17 03:43 130/68 (88) 08/07/17 01:38 36.6 68 18 173/75 96 Room Air 08/07/17 01:05 57 21 98 08/07/17 01:04 57 08/07/17 01:00 127/64 08/07/17 00:52 57 13 99 08/07/17 00:37 58 14 99 08/07/17 00:30 120/63 08/07/17 00:22 58 14 99 08/07/17 00:07 60 16 99 08/07/17 00:02 60 15 99 08/07/17 00:00 119/63 08/06/17 23:47 63 17 100 08/06/17 23:32 60 17 96 08/06/17 23:30 140/77 08/06/17 22:57 62 19 97 08/06/17 22:52 64 18 98 08/06/17 22:31 135/71 08/06/17 22:00 174/70 08/06/17 21:52 68 19 100 08/06/17 21:37 71 100 08/06/17 21:32 65 18 100 Room Air 08/06/17 21:30 159/76 08/06/17 21:29 62 08/06/17 21:21 180/77 08/06/17 21:04 36.3 69 20 158/79 97 Room Air On exam she is alert and oriented. She is able to sit up in bed relatively comfortably. She has no abnormal skin markings to inspection lumbar spine. Nontender to palpation. Lower extremity testing reveals a +5 over 5 bilateral plantar flexion dorsiflexion quadriceps. Sensory appears to be symmetric and intact. Laboratory Results Last 24 Hours Test 08/07/17 07:24 White Blood Count 4.66 K/uL Red Blood Count 4.02 M/uL Hemoglobin 11.6 g/dL Hematocrit 36.0 % Mean Corpuscular Volume 89.6 fL Mean Corpuscular Hemoglobin 28.9 pg Mean Corpuscular Hemoglobin Concent 32.2 g/dl RDW Standard Deviation 53.4 fL RDW Coefficient of Variation 16.2 % Platelet Count 153 K/uL Mean Platelet Volume 10.9 fL Prothrombin Time 11.4 SECONDS Prothromb Time International Ratio 1.1 Sodium Level 142 mmol/L Potassium Level 4.2 mmol/L Chloride Level 109 mmol/L Carbon Dioxide Level 28 mmol/L Anion Gap 5.0 mmol/L Blood Urea Nitrogen 31 mg/dl Creatinine 1.20 mg/dl Est Creatinine Clear Calc Drug Dose 38.2 ml/min Estimated GFR () 49.1 Estimated GFR (Non- 42.4 BUN/Creatinine Ratio 25.8 Random Glucose 108 mg/dl Calcium Level 8.7 mg/dl Magnesium Level 2.2 mg/dl Assessment & Plan Assessment spinal stenosis and spondylolisthesis with what appears to be acute herniated nucleus pulposis L4 5 on the left. MRI available for review dated 04/2017 at [facility] does demonstrate evidence of anterolisthesis L4 5 marked facet hypertrophy evidence of the facet cyst on the left. There is evidence of disc protrusion a caudal migration on the left. There is appreciable disc material along the left pedicle of L5. She has severe central lateral recess stenosis L34 L4 5 as well. Plan at this time she has undergone extensive course of nonoperative care. She may consider surgical intervention. She understands surgery would be extensive. It would require a lumbar decompression with fusion for stabilization at the L3 4 L4 5 L5-S1 levels. Risks benefits pros cons and returns were outlined in detail. I will follow her throughout the weekend to assess her progress.
--- NOTE | 2017-08-07 14:47 | Progress Note ---
Progress Note Date of Service Aug 07, 2017. Progress Note Patient admitted after midnight. Patient states her pain is much improved. Today only a 5/10 sharp pain in the lower back radiating down her legs. She denies numbness, tingling, incontinence. She complains of feeling very fatigued and generalized weakness. The patient denies fevers, chills, sweats, chest pain, palpitations, claudication, cough, wheezing, shortness of breath, nausea, vomiting, abdominal pain, dysuria, hematuria, urinary retention, paralysis, motor weakness, numbness and tingling. Patient alert and oriented x 2. Disoriented to time. 1+ pitting edema in lower extremities, physical exam otherwise grossly unremarkable. A/P: Severe lumbar stenosis, acute HNP L4-5 on the left -Admit to med/surg for observation -Ortho spine consulted, appreciate recs: Pt may consider surgery as she has failed non-surgical management. -Pt states she just had steroid injection 1 week ago, already with severe pain -PT/OT evaluate and treat. Pt lives at home with
[2017-08-07 15:35] VITALS: BP 128/77; PULSE 63; TEMP 36.4; O2SAT 97
[2017-08-07] MEDS: CLONAZEPAM 0.5 MG TAB PO SCH (21:40)
[2017-08-07] MEDS: DONEPEZIL HCL 10 MG TAB PO SCH (21:41)
[2017-08-07] MEDS: CARBIDOPA/LEVODOPA 50/200MG EXT REL TAB PO SCH (21:41)
[2017-08-07] MEDS: GABAPENTIN 300 MG CAP PO SCH (21:42)
[2017-08-07] MEDS: RIVAROXABAN 20 MG TAB PO SCH (21:42)
[2017-08-07] MEDS: ARTIFICIAL TEARS OP OINT 3.5 GM TUBE OPB SCH (21:43)
[2017-08-07] MEDS: ACETAMINOPHEN 325 MG TAB PO PRN (21:56)
[2017-08-07 22:59] VITALS: BP 133/83; PULSE 62; TEMP 36.8; O2SAT 98
[2017-08-08] MEDS: ACETAMINOPHEN 325 MG TAB PO PRN ×4 (02:32→22:44)
[2017-08-08] MEDS: CARBIDOPA/LEVODOPA 25/100MG TAB PO SCH ×4 (05:52→17:53)
[2017-08-08 07:17] LABS: HEMATOCRIT 41.2 % (37-47); MEAN CELL VOLUME 90.4 fL (80-100); MEAN CORPUSCULAR HEMOGLOBIN 28.7 pg (25-34); MEAN CORPUSCULAR HGB CONC 31.8 g/dl (32-36); MEAN PLATELET VOLUME 10.6 fL (7.4-10.4); PLATELET COUNT 186 K/uL (130-400); RED BLOOD COUNT 4.56 M/uL (4.2-5.4); WHITE BLOOD COUNT 6.24 K/uL (4.8-10.8)
[2017-08-08 07:36] VITALS: BP 144/79; PULSE 58; TEMP 36.5; O2SAT 100
[2017-08-08 07:47] LABS: BUN/CREATININE RATIO 19.5 (10-20); CALCIUM 9.2 mg/dl (8.5-10.1); CREATININE 1.3 mg/dl (0.60-1.20); POTASSIUM 4.5 mmol/L (3.5-5.1)
[2017-08-08] MEDS: SELEGILINE HCL 5 MG CAP PO SCH ×2 (09:18→20:36)
[2017-08-08] MEDS: MEMANTINE 5 MG TAB PO SCH ×2 (09:19→20:34)
[2017-08-08] MEDS: DOCUSATE SODIUM/SENNA 50/8.6MG TAB PO SCH (09:20)
[2017-08-08] MEDS: AMIODARONE 200 MG TAB PO SCH (09:20)
[2017-08-08] MEDS: FERROUS SULFATE 325 MG TAB PO SCH (09:20)
[2017-08-08] MEDS: RANITIDINE HCL 150 MG TAB PO SCH ×2 (09:21→20:35)
--- NOTE | 2017-08-08 10:16 | Progress Note ---
Progress Note Date of Service Aug 08, 2017. Progress Note Patient is sitting in chair at the bedside. She states that her symptoms are improved from her status upon admission. She exhibits reasonable strength testing lower extremities. Assessment severe spinal stenosis. Plan at this time we are considering surgical intervention. We'll see how she proceeds with medical management of the next few days. I did speak with the daughter yesterday and we understand that surgery may be necessary to alleviate her significant discomfort. It is however a major procedure require at least 2-3 hours of work.
[2017-08-08 14:44] VITALS: BP 120/70; PULSE 62; TEMP 36.3; O2SAT 100
[2017-08-08] MEDS: RIVAROXABAN 20 MG TAB PO SCH (20:34)
[2017-08-08] MEDS: CLONAZEPAM 0.5 MG TAB PO SCH (20:34)
[2017-08-08] MEDS: DONEPEZIL HCL 10 MG TAB PO SCH (20:35)
[2017-08-08] MEDS: GABAPENTIN 300 MG CAP PO SCH (20:35)
[2017-08-08] MEDS: CARBIDOPA/LEVODOPA 50/200MG EXT REL TAB PO SCH (20:35)
[2017-08-08] MEDS: ARTIFICIAL TEARS OP OINT 3.5 GM TUBE OPB SCH (20:36)
--- NOTE | 2017-08-08 22:52 | Progress Note ---
Subjective Date of Service: Aug 08, 2017. Subjective Pt evaluation today including: conversation w/ patient, conversation w/ family , physical exam, chart review, lab review 82 yo female reports feeling significantly better and reports that her back pain has improved. Patient states that she is undecided on her surgery. Problem List Medical Problems: (1) Anemia Status: Acute (2) Atrial fibrillation with RVR Status: Acute (3) Atrial fibrillation with RVR Status: Acute (4) Colitis Status: Acute (5) Constipation Status: Acute (6) Elevated INR Status: Acute (7) Elevated INR Status: Acute (8) Fall Status: Acute (9) Hematoma of left flank Status: Acute (10) Hypernatremia Status: Acute (11) Hypotension Status: Acute (12) Intractable low back pain Status: Acute (13) Left sided chest pain Status: Acute (14) Proctitis Status: Acute (15) UTI (urinary tract infection) Status: Acute (16) UTI (urinary tract infection) Status: Acute (17) Weakness Status: Acute (18) Weakness Status: Acute (19) Weakness Status: Acute (20) Weakness generalized Status: Acute Review of Systems Constitutional: No fever, No chills ENT: No hearing loss Respiratory: No cough, No sputum Cardiac: No chest pain, No orthopnea Abdomen: No pain, No nausea Musculoskeletal: + joint pain Neurologic: No memory loss, No paralysis Heme: No abnormal bleeding/bruising Endo: No fatigue Skin: No rash, No itch All Other Systems: Reviewed and Negative Medications Current Inpatient Medications Medications (Trade) Dose Ordered Sig/Geronimo Route Start Time Stop Time Status Last Admin Dose Admin Amiodarone HCl (Cordarone Tab) 200 mg DAILY PO 08/07/17 09:00 09/06/17 08:59 08/08/17 09:20 200 MG Artificial Tears (Lacri-Lube Oph Oint) 1 appln HS OPB 08/07/17 21:00 09/06/17 20:59 08/08/17 20:36 1 APPLN Carbidopa/Levodopa (Sinemet Cr 50/ 200MG Tab) 1 tab HS PO 08/07/17 21:00 09/06/17 20:59 08/08/17 20:35 1 TAB Carbidopa/Levodopa (Sinemet 25/ 100MG Tab) 3 tab QID@0600,1000,1200,1800 PO 08/07/17 06:00 09/06/17 05:59 08/08/17 17:53 3 TAB Clonazepam (Klonopin Tab) 0.25 mg HS PO 08/07/17 21:00 09/06/17 20:59 08/08/17 20:34 0.25 MG Donepezil HCl (Aricept Tab) 10 mg HS PO 08/07/17 21:00 09/06/17 20:59 08/08/17 20:35 10 MG Gabapentin (Neurontin Cap) 300 mg HS PO 08/07/17 21:00 09/06/17 20:59 08/08/17 20:35 300 MG Levalbuterol (Xopenex Hfa Inhaler) 2 puffs DAILY PRN INH 08/07/17 01:00 09/06/17 00:59 Memantine (Namenda Tab) 5 mg BID PO 08/07/17 09:00 09/06/17 08:59 08/08/17 20:34 5 MG Ranitidine HCl (zANTac TAB) 150 mg BID PO 08/07/17 09:00 09/06/17 08:59 08/08/17 20:35 150 MG Rivaroxaban (Xarelto Tab) 20 mg HS PO 08/07/17 21:00 09/06/17 20:59 08/08/17 20:34 20 MG Senna/Docusate Sodium (Senokot S Tab) 1 tab DAILY PO 08/07/17 09:00 09/06/17 08:59 08/08/17 09:20 1 TAB Ferrous Sulfate (Feosol Tab) 325 mg DAILY PO 08/07/17 09:00 09/06/17 08:59 08/08/17 09:20 325 MG Selegiline HCl (Eldepryl Cap) 5 mg BID PO 08/07/17 09:00 09/06/17 08:59 08/08/17 20:36 5 MG Acetaminophen (Tylenol Tab) 650 mg Q4H PRN PO 08/07/17 01:00 09/06/17 00:59 08/08/17 14:35 650 MG Al Hydrox/Mg Hydrox/Simethicone (Maalox Max Susp) 15 ml Q4H PRN PO 08/07/17 01:00 09/06/17 00:59 Magnesium Hydroxide (Milk Of Magnesia Susp) 30 ml Q6H PRN PO 08/07/17 01:00 09/06/17 00:59 Polyethylene (Miralax Powder Packet) 17 gm DAILY PRN PO 08/07/17 01:00 09/06/17 00:59 08/07/17 02:07 17 GM Ondansetron HCl (Zofran Inj) 4 mg Q6H PRN IV 08/07/17 01:00 09/06/17 00:59 Hydromorphone HCl (Dilaudid Inj) 0.5 mg Q3H PRN IV 08/07/17 01:00 08/21/17 00:59 08/07/17 10:01 0.5 MG Miscellaneous (Iv Fluids Completed) 1 ea PRN PRN N/A 08/07/17 04:15 08/07/18 04:14 08/07/17 12:07 1 EA Objective Vital Signs Date Time Temp Pulse Resp B/P (MAP) Pulse Ox O2 Delivery O2 Flow Rate FiO2 08/08/17 16:10 Room Air 08/08/17 14:44 36.3 62 18 120/70 (87) 100 Room Air 08/08/17 07:45 Room Air 08/08/17 07:36 36.5 58 16 144/79 (100) 100 Room Air 08/08/17 00:38 Room Air 08/07/17 22:59 36.8 62 18 133/83 (100) 98 Room Air Physical Exam General Appearance: WD/WN, no apparent distress Neck: supple, no adenopathy Respiratory/Chest: chest non-tender, lungs clear, normal breath sounds Cardiovascular: regular rate, rhythm, no edema, no gallop Abdomen: normal bowel sounds, non tender Extremities: non-tender, normal inspection Skin: normal color Laboratory Results Last 24 Hours Test 08/08/17 06:41 White Blood Count 6.24 K/uL Red Blood Count 4.56 M/uL Hemoglobin 13.1 g/dL Hematocrit 41.2 % Mean Corpuscular Volume 90.4 fL Mean Corpuscular Hemoglobin 28.7 pg Mean Corpuscular Hemoglobin Concent 31.8 g/dl RDW Standard Deviation 54.6 fL RDW Coefficient of Variation 16.4 % Platelet Count 186 K/uL Mean Platelet Volume 10.6 fL Sodium Level 139 mmol/L Potassium Level 4.5 mmol/L Chloride Level 106 mmol/L Carbon Dioxide Level 28 mmol/L Anion Gap 4.0 mmol/L Blood Urea Nitrogen 25 mg/dl Creatinine 1.30 mg/dl Est Creatinine Clear Calc Drug Dose 35.3 ml/min Estimated GFR () 44.6 Estimated GFR (Non- 38.4 BUN/Creatinine Ratio 19.5 Random Glucose 96 mg/dl Calcium Level 9.2 mg/dl Assessment and Plan 82 year old female with lower back pain with radiating symptoms. Imaging showed Multilevel degenerative changes appear very similar to the most recent MR from 07/02/2017 with the most severe degree of spinal canal narrowing at L3-4 and L4-5 and very degrees of neural foraminal narrowing as above. * Patient appears to not have optimized gabapentin as an outpatient * May be able to use lyrica * Cymbalta is also another option * Ortho though recommends surgery given the severe degree of stenosis. * Patient was counselled for 20 minutes on risks and benefits and remains undecided. * will keep patient hospitalized for now as ortho and patient are leaning towards surgery. 2) JENNIFER - IVF provided - Lisinopril held - pt takes Lasix PRN only for LE edema. 3) AF - Sinus at present - continue amiodarone , Xarelto 4) Chronic anemia - Hb approximately at baseline although she is dehydrated so we will trend AM after IVF provided. 5) Parkinson disease - continue Sinemet 6) HTN - Lisinopril held - will provide sub if needed. Continued [facility] stay due to: other Discharge planning: uncertain
[2017-08-08 23:59] VITALS: BP 145/83; PULSE 70; TEMP 36.5; O2SAT 99
[2017-08-09] MEDS: ACETAMINOPHEN 325 MG TAB PO PRN ×2 (03:29→16:01)
[2017-08-09] MEDS: CARBIDOPA/LEVODOPA 25/100MG TAB PO SCH ×4 (05:49→18:45)
[2017-08-09 06:23] LABS: HEMATOCRIT 38.1 % (37-47); MEAN CELL VOLUME 89.2 fL (80-100); MEAN CORPUSCULAR HEMOGLOBIN 28.1 pg (25-34); MEAN CORPUSCULAR HGB CONC 31.5 g/dl (32-36); MEAN PLATELET VOLUME 10.8 fL (7.4-10.4); PLATELET COUNT 147 K/uL (130-400); RED BLOOD COUNT 4.27 M/uL (4.2-5.4); WHITE BLOOD COUNT 5.88 K/uL (4.8-10.8)
[2017-08-09 06:52] LABS: BUN/CREATININE RATIO 24.8 (10-20); CALCIUM 8.9 mg/dl (8.5-10.1); CREATININE 1.1 mg/dl (0.60-1.20); POTASSIUM 4.5 mmol/L (3.5-5.1)
[2017-08-09 07:17] VITALS: BP 157/83; PULSE 62; TEMP 36.4; O2SAT 98
[2017-08-09] MEDS: RANITIDINE HCL 150 MG TAB PO SCH ×2 (08:54→20:56)
[2017-08-09] MEDS: FERROUS SULFATE 325 MG TAB PO SCH (08:54)
[2017-08-09] MEDS: DOCUSATE SODIUM/SENNA 50/8.6MG TAB PO SCH (08:54)
[2017-08-09] MEDS: MEMANTINE 5 MG TAB PO SCH ×2 (08:55→20:56)
[2017-08-09] MEDS: SELEGILINE HCL 5 MG CAP PO SCH ×2 (08:55→20:56)
[2017-08-09] MEDS: AMIODARONE 200 MG TAB PO SCH (09:21)
--- NOTE | 2017-08-09 10:30 | Progress Note ---
Subjective Date of Service: Aug 09, 2017. Subjective Pt evaluation today including: conversation w/ patient, conversation w/ family (daughter), physical exam, review of inpatient medication list Pain: no pain today, no narcotics in two days PO Intake: adequate Voiding: no voiding problems long talk with patient and her daughter at the bedside no pain currently hoping to talk with Dr. Webster, explained that he may not be in today, was planning on observing for a few days and make decision on surgery patient and family leaning towards surgery due to bouts of excruciating pain fortunately, no pain for two days now no chest pain, no dyspnea, eating well Problem List Medical Problems: (1) Anemia Status: Acute (2) Atrial fibrillation with RVR Status: Acute (3) Atrial fibrillation with RVR Status: Acute (4) Colitis Status: Acute (5) Constipation Status: Acute (6) Elevated INR Status: Acute (7) Elevated INR Status: Acute (8) Fall Status: Acute (9) Hematoma of left flank Status: Acute (10) Hypernatremia Status: Acute (11) Hypotension Status: Acute (12) Intractable low back pain Status: Acute (13) Left sided chest pain Status: Acute (14) Proctitis Status: Acute (15) UTI (urinary tract infection) Status: Acute (16) UTI (urinary tract infection) Status: Acute (17) Weakness Status: Acute (18) Weakness Status: Acute (19) Weakness Status: Acute (20) Weakness generalized Status: Acute Review of Systems Neurologic: + weakness, + balance problems All Other Systems: Reviewed and Negative Medications Current Inpatient Medications Medications (Trade) Dose Ordered Sig/Geronimo Route Start Time Stop Time Status Last Admin Dose Admin Amiodarone HCl (Cordarone Tab) 200 mg DAILY PO 08/07/17 09:00 09/06/17 08:59 08/09/17 09:21 200 MG Artificial Tears (Lacri-Lube Oph Oint) 1 appln HS OPB 08/07/17 21:00 09/06/17 20:59 08/08/17 20:36 1 APPLN Carbidopa/Levodopa (Sinemet Cr 50/ 200MG Tab) 1 tab HS PO 08/07/17 21:00 09/06/17 20:59 08/08/17 20:35 1 TAB Carbidopa/Levodopa (Sinemet 25/ 100MG Tab) 3 tab QID@0600,1000,1200,1800 PO 08/07/17 06:00 09/06/17 05:59 08/09/17 09:59 3 TAB Clonazepam (Klonopin Tab) 0.25 mg HS PO 08/07/17 21:00 09/06/17 20:59 08/08/17 20:34 0.25 MG Donepezil HCl (Aricept Tab) 10 mg HS PO 08/07/17 21:00 09/06/17 20:59 08/08/17 20:35 10 MG Gabapentin (Neurontin Cap) 300 mg HS PO 08/07/17 21:00 09/06/17 20:59 08/08/17 20:35 300 MG Levalbuterol (Xopenex Hfa Inhaler) 2 puffs DAILY PRN INH 08/07/17 01:00 09/06/17 00:59 Memantine (Namenda Tab) 5 mg BID PO 08/07/17 09:00 09/06/17 08:59 08/09/17 08:55 5 MG Ranitidine HCl (zANTac TAB) 150 mg BID PO 08/07/17 09:00 09/06/17 08:59 08/09/17 08:54 150 MG Rivaroxaban (Xarelto Tab) 20 mg HS PO 08/07/17 21:00 09/06/17 20:59 08/08/17 20:34 20 MG Senna/Docusate Sodium (Senokot S Tab) 1 tab DAILY PO 08/07/17 09:00 09/06/17 08:59 08/09/17 08:54 1 TAB Ferrous Sulfate (Feosol Tab) 325 mg DAILY PO 08/07/17 09:00 09/06/17 08:59 08/09/17 08:54 325 MG Selegiline HCl (Eldepryl Cap) 5 mg BID PO 08/07/17 09:00 09/06/17 08:59 08/09/17 08:55 5 MG Acetaminophen (Tylenol Tab) 650 mg Q4H PRN PO 08/07/17 01:00 09/06/17 00:59 08/09/17 03:29 650 MG Al Hydrox/Mg Hydrox/Simethicone (Maalox Max Susp) 15 ml Q4H PRN PO 08/07/17 01:00 09/06/17 00:59 Magnesium Hydroxide (Milk Of Magnesia Susp) 30 ml Q6H PRN PO 08/07/17 01:00 09/06/17 00:59 Polyethylene (Miralax Powder Packet) 17 gm DAILY PRN PO 08/07/17 01:00 09/06/17 00:59 08/07/17 02:07 17 GM Ondansetron HCl (Zofran Inj) 4 mg Q6H PRN IV 08/07/17 01:00 09/06/17 00:59 Hydromorphone HCl (Dilaudid Inj) 0.5 mg Q3H PRN IV 08/07/17 01:00 08/21/17 00:59 08/07/17 10:01 0.5 MG Miscellaneous (Iv Fluids Completed) 1 ea PRN PRN N/A 08/07/17 04:15 08/07/18 04:14 08/07/17 12:07 1 EA Objective Vital Signs Date Time Temp Pulse Resp B/P (MAP) Pulse Ox O2 Delivery O2 Flow Rate FiO2 08/09/17 08:10 Room Air 08/09/17 07:17 36.4 62 16 157/83 (107) 98 Room Air 08/08/17 23:59 36.5 70 18 145/83 (103) 99 Room Air 83.0 08/08/17 23:41 Room Air 08/08/17 16:10 Room Air 08/08/17 14:44 36.3 62 18 120/70 (87) 100 Room Air Physical Exam General Appearance: WD/WN, no apparent distress Eyes: normal inspection, EOMI, sclerae normal Respiratory/Chest: chest non-tender, lungs clear, normal breath sounds, no respiratory distress, no accessory muscle use Cardiovascular: regular rate, rhythm, no edema, no gallop, no JVD, no murmur Abdomen: normal bowel sounds, non tender, soft, no organomegaly Extremities: no pedal edema, no calf tenderness, normal capillary refill, pelvis stable, + pertinent finding (diffuse arthritic changes, decreased mobility of lumbar spine) Neurologic/Psychiatric: polisher balance screwhead II-XII nml as tested, alert, normal mood/affect, oriented x 3, + abnormal gait (slow movements), + motor weakness Skin: normal color, warm/dry, no rash Laboratory Results Last 24 Hours Test 08/09/17 05:42 White Blood Count 5.88 K/uL Red Blood Count 4.27 M/uL Hemoglobin 12.0 g/dL Hematocrit 38.1 % Mean Corpuscular Volume 89.2 fL Mean Corpuscular Hemoglobin 28.1 pg Mean Corpuscular Hemoglobin Concent 31.5 g/dl RDW Standard Deviation 52.8 fL RDW Coefficient of Variation 16.1 % Platelet Count 147 K/uL Mean Platelet Volume 10.8 fL Sodium Level 141 mmol/L Potassium Level 4.5 mmol/L Chloride Level 107 mmol/L Carbon Dioxide Level 27 mmol/L Anion Gap 6.0 mmol/L Blood Urea Nitrogen 27 mg/dl Creatinine 1.10 mg/dl Est Creatinine Clear Calc Drug Dose 41.7 ml/min Estimated GFR () 54.5 Estimated GFR (Non- 47.0 BUN/Creatinine Ratio 24.8 Random Glucose 98 mg/dl Calcium Level 8.9 mg/dl Assessment and Plan 82 year old female with lower back pain with radiating symptoms. Imaging showed Multilevel degenerative changes appear very similar to the most recent MR from 07/02/2017 with the most severe degree of spinal canal narrowing at L3-4 and L4-5 and very degrees of neural foraminal narrowing as above. Patient appears to not have optimized gabapentin as an outpatient at 300mg HS Ortho though recommends surgery given the severe degree of stenosis. Patient was counselled for 20 minutes on risks and benefits and remains undecided. leaning towards surgery today due to her bouts of severe pain, she has tried several injections with pain management 2) JENNIFER - resolved, Cr 1.1, adequate UO, resume Lisinopril, use Lasix PRN for leg swelling 3) AF - Sinus at present - continue amiodarone , Xarelto will need to hold Xarelto for 2-3 days once decision on surgery made 4) Chronic anemia - Hb at baseline, no signs of bleeding 5) Parkinson disease - continue Sinemet 6) HTN - Lisinopril. Continued [facility] stay due to: other Discharge planning: uncertain
[2017-08-09 15:12] VITALS: BP 135/81; PULSE 74; TEMP 36.3; O2SAT 95
[2017-08-09] MEDS: RIVAROXABAN 20 MG TAB PO SCH (20:56)
[2017-08-09] MEDS: ARTIFICIAL TEARS OP OINT 3.5 GM TUBE OPB SCH (20:56)
[2017-08-09] MEDS: CARBIDOPA/LEVODOPA 50/200MG EXT REL TAB PO SCH (20:56)
[2017-08-09] MEDS: DONEPEZIL HCL 10 MG TAB PO SCH (20:56)
[2017-08-09] MEDS: CLONAZEPAM 0.5 MG TAB PO SCH (20:56)
[2017-08-09] MEDS: GABAPENTIN 300 MG CAP PO SCH (20:56)
[2017-08-10 00:11] VITALS: BP 133/79; PULSE 62; TEMP 36.7; O2SAT 97
[2017-08-10] MEDS: CARBIDOPA/LEVODOPA 25/100MG TAB PO SCH ×4 (05:29→17:32)
[2017-08-10 07:01] LABS: MEAN CELL VOLUME 89.5 fL (80-100); MEAN CORPUSCULAR HEMOGLOBIN 28.6 pg (25-34); MEAN PLATELET VOLUME 10.7 fL (7.4-10.4); PLATELET COUNT 143 K/uL (130-400); RED BLOOD COUNT 4.47 M/uL (4.2-5.4); WHITE BLOOD COUNT 5.68 K/uL (4.8-10.8)
[2017-08-10 07:05] VITALS: BP 137/72; PULSE 56; TEMP 36.4; O2SAT 100
[2017-08-10 07:33] LABS: BUN/CREATININE RATIO 21.1 (10-20); CALCIUM 9.1 mg/dl (8.5-10.1); CREATININE 1.36 mg/dl (0.60-1.20); POTASSIUM 4.6 mmol/L (3.5-5.1)
[2017-08-10] MEDS: DOCUSATE SODIUM/SENNA 50/8.6MG TAB PO SCH (08:25)
[2017-08-10] MEDS: AMIODARONE 200 MG TAB PO SCH (08:28)
[2017-08-10] MEDS: SELEGILINE HCL 5 MG CAP PO SCH (08:29)
[2017-08-10] MEDS: FERROUS SULFATE 325 MG TAB PO SCH (08:29)
[2017-08-10] MEDS: MEMANTINE 5 MG TAB PO SCH (08:30)
[2017-08-10] MEDS: RANITIDINE HCL 150 MG TAB PO SCH (08:30)
[2017-08-10] MEDS ORDERED: LISINOPRIL 5 MG TAB PO SCH (09:00)
[2017-08-10] MEDS ORDERED: SODIUM CHLORIDE 0.9% 1000ML 1,000 ML IV SCH (09:15)
[2017-08-10 15:00] VITALS: BP 124/83; PULSE 61; TEMP 36.4; O2SAT 99
[2017-08-10] MEDS ORDERED: GABA1CAP4 PO (15:51)
[2017-08-10] MEDS ORDERED: XRL20 PO (15:51)
[2017-08-10 15:53] LABS: CREATININE 1.24 mg/dl (0.60-1.20)
--- NOTE | 2017-08-10 15:54 | Discharge Instructions ---
Discharge Instructions Date of Service Aug 10, 2017. Admission Reason for Admission: Chronic Lower Back Pain Discharge Discharge Diagnosis / Problem: spinal stenosis, back pain Discharge Goals Goal(s): Decrease discomfort, Improve function Activity Recommendations Activity Limitations: resume your previous activity . Instructions / Follow-Up Instructions / Follow-Up Please hold your lisinopril and lasix until you see your family physician for follow up. Current Hospital Diet Patient's current hospital diet: AHA Diet (Heart Healthy) Discharge Diet Recommended Diet: AHA Diet (Heart Healthy) Procedures Procedures Performed: chest xray lumbar spine ct Pending Studies Studies pending at discharge: no Medical Emergencies . Who to Call and When: Medical Emergencies: If at any time you feel your situation is an emergency, please call 911 immediately. . Non-Emergent Contact Non-Emergency issues call your: Primary Care Provider Call Non-Emergent contact if: your pain is not controlled, your pain is worsening, your pain is unusual for you, your pain is concerning you . . "Provider Documentation" section prepared by Alanis Rodriguez. . VTE Core Measure Inpt VTE Proph given/why not?: Other Anticoagulation
--- NOTE | 2017-08-10 16:26 | Discharge Summary ---
Discharge Summary Date of Service Aug 10, 2017. Discharge Summary Admission Date: Aug 07, 2017 at 01:02 Discharge Date: Aug 10, 2017 Discharge Disposition: Home with services Principal Diagnosis: spinal stenosis, back pain Procedures: Chest/Abd CT IMPRESSION: 1. No evidence of free intra-abdominal gas. 2. Prominent gas-filled colon beneath the right hemidiaphragm. 3. Moderate stool burden. 4. Moderate gastric distention with ingested material and gas. 5. No acute cardiopulmonary disease. Lumbar Spine CT L1-2: Disc bulge with posterior osteophytes result in effacement of the anterior thecal sac as noted on prior MR. Mild bilateral neural foraminal narrowing. L2-3: Disc bulge, ligamentum flavum thickening, facet arthropathy result in minimal circumferential narrowing of the spinal canal. Moderate bilateral neural foraminal narrowing. L3-4: Disc bulge, ligament flavum thickening, and facet arthropathy result in moderate circumferential narrowing of the spinal canal is noted on prior MR. Severe bilateral neural foraminal narrowing. L4-5: Anterolisthesis with disc bulge and facet arthropathy result in mild spinal canal narrowing. Moderate right and severe left neural foraminal narrowing. L5-S1: Disc bulge and facet arthropathy result in moderate bilateral neural foraminal narrowing. No significant spinal canal narrowing. Paraspinal soft tissues within normal limits. Mild subcutaneous edema in the posterior back. Mild fatty infiltration of the paraspinal musculature. Atherosclerosis noted. IMPRESSION: 1. No acute osseous injury of the lumbar spine. 2. Multilevel degenerative changes appear very similar to the most recent MR from 07/02/2017 with the most severe degree of spinal canal narrowing at L3-4 and L4-5 and very degrees of neural foraminal narrowing as above. 3. Cfo radiograph concerning for free intra-abdominal gas. Dedicated upright chest x-ray or abdominal radiograph recommended to exclude free air. 4. These findings were discussed with MONIKA Villa by Dr. Angel at 10:50 PM on 08/06/2017. Medication Reconciliation Changed Medications: Gabapentin (Gabapentin) 300 Mg Cap 300 MG PO BID for 30 Days, #30 DOSE (Changed from: HS) Rivaroxaban (Xarelto) 20 Mg Tab 15 MG PO HS for 30 Days, #30 DOSE (Changed from: 20 MG) Continued Medications: Amiodarone Hcl (Cordarone) 200 Mg Tab 200 MG PO DAILY, TAB Artificial Tear Ointment (Eye Lubricant) 1 Oin Oin 1 APPLN OPB HS Carbidopa-Levodopa (Sinemet Cr 50-200 mg) 1 Tab Tab 1 TAB PO HS Carbidopa-Levodopa (Carbidopa/Levodopa Odt) 1 Tab Tab 25-250 MG PO TID PRN for PARKINSON'S CONTROL Carbidopa/Levodopa (Sinemet 25MG/100MG) Tab 3 TABS PO QID, TAB GIVE AT 0600, 1000, 1200, AND 1800. Clonazepam (Klonopin) 0.5 Mg Tab 0.25 MG PO HS, TAB Donepezil HCl (Donepezil HCl) 10 Mg Tab 10 MG PO HS Ferrous Sulfate (Iron) 325 Mg Tab 325 MG PO DAILY Levalbuterol Tartrate (Levalbuterol Tartrate Hfa) 45 Mcg/Act Aer 2 PUFFS INH DAILY PRN for SOB/Wheezing Memantine (Namenda) 5 Mg Tab 5 MG PO BID, TAB Ocuvite Preservision (Ocuvite Preservision) 1 Tab Tab 1 TAB PO DAILY, TAB Ranitidine (Zantac) 150 Mg Tab 150 MG PO BID, TAB Selegiline HCl (Selegiline HCl) 5 Mg Tab 5 MG PO BID Sennosides-Docusate Sodium (Stool Softener) 1 Tab Tab 1 TAB PO DAILY Discontinued Medications: Furosemide (Lasix) 40 Mg Tab 40 MG PO DAILY PRN for FLUID RETENTION, TAB Lisinopril (Prinivil) 5 Mg Tab 5 MG PO DAILY, TAB Discharge Exam Review of Systems: Respiratory: No shortness of breath Cardiovascular: No chest pain Abdomen: No nausea, No vomiting, No diarrhea Musculoskeletal: No joint pain Physical Exam: General Appearance: WD/WN, no apparent distress Respiratory/Chest: chest non-tender, lungs clear, normal breath sounds, no respiratory distress Cardiovascular: regular rate, rhythm, no edema Abdomen / GI: normal bowel sounds, non tender, soft Extremities: normal inspection Neurologic/Psychiatric: alert, normal mood/affect, oriented x 3 Skin: normal color, warm/dry Hospital Course 82 year old female with lower back pain with radiating symptoms. Imaging showed Multilevel degenerative changes appear very similar to the most recent MR from 07/02/2017 with the most severe degree of spinal canal narrowing at L3-4 and L4-5 and very degrees of neural foraminal narrowing as above. Patient appears to not have optimized gabapentin as an outpatient at 300mg HS Ortho though recommends surgery given the severe degree of stenosis. Patient was counselled for 30 minutes on risks and benefits and has decided to try PT and further pain management before selecting the surgery option. 2) JENNIFER - Cr 1.24, hold lisinopril and lasix until follow up with primary, repeat prp on Thursday 3) AF - Sinus at present - continue amiodarone , Xarelto - reduced to 15 mg per pharmacy recommendation based on kidney function 4) Chronic anemia - Hb at baseline, no signs of bleeding 5) Parkinson disease - continue Sinemet Htn - lisinopril held for now Total Time Spent: Greater than 30 minutes This includes examination of the patient, discharge planning, medication reconciliation, and communication with other providers. Discharge Instructions Please refer to the electronic Patient Visit Report (Discharge Instructions) for additional information.
[2017-08-10 17:05] VITALS: BP 124/83; PULSE 61; TEMP 36.4; O2SAT 99
[2017-08-10] MEDS: ACETAMINOPHEN 325 MG TAB PO PRN (17:31)
[2017-08-10] MEDS ORDERED: RIVAROXABAN TAB 15 MG TAB PO SCH (21:00)
== END 2017-08-10 18:16 | disposition home health service (06) ==
LOC: C.EDB 21:04 → C.MSW 08-07 01:02 → ENRESERV 08-07 01:09 → C.MSW 08-07 01:16
PROVIDERS: ADMIT Internal Medicine; ATTEND Internal Medicine
DX: M48.07 Spinal stenosis, lumbosacral region (principal); S60.221A Contusion of right hand, initial encounter; M43.16 Spondylolisthesis, lumbar region; W19.XXXA Unspecified fall, initial encounter; G89.29 Other chronic pain; D64.9 Anemia, unspecified; Z79.899 Other long term (current) drug therapy; E78.5 Hyperlipidemia, unspecified; I10 Essential (primary) hypertension; G20 Parkinson's disease; I48.91 Unspecified atrial fibrillation

== ENCOUNTER 2017-09-29 04:47 | Inpatient (IN) | payer OTHER ==
[2017-09-02 13:36] VITALS: BMI 34.0
--- NOTE | 2017-09-02 15:01 | PAT Medication Instructions ---
Service Date Sep 02, 2017. Current Home Medication List Acetaminophen/Codeine (Tylenol W/Codeine #3), 1 TAB PO Q8 PRN for Pain Amiodarone Hcl (Cordarone), 200 MG PO QPM Artificial Tear Ointment (Eye Lubricant), 1 APPLN OPB HS Calcium Carbonate-Vitamin D (Calcium + D3 600-200 mg-Unit), 1 TAB PO QPM Carbidopa-Levodopa (Sinemet Cr 50-200 mg), 1 TAB PO HS Carbidopa-Levodopa (Carbidopa/Levodopa Odt), 25-250 MG PO TID PRN for PARKINSON' S CONTROL Carbidopa/Levodopa (Sinemet 25MG/100MG), 3 TABS PO QID Clonazepam (Klonopin), 0.25 MG PO HS Docusate Sodium (Docusate Sodium), 100 MG PO Q2D OR PRN Donepezil HCl (Donepezil HCl), 10 MG PO HS Ferrous Sulfate (Ferrous Sulfate), 325 MG PO UD Furosemide (Lasix), 40 MG PO DAILY PRN for Gabapentin (Neurontin), 300 MG PO UD PRN for Pain Gabapentin (Neurontin), 100 MG PO HS Hydrocodone/Acetaminophen 5MG/325MG ([place] 5MG/325MG), 1 TABLET PO Q6 PRN for Pain Levalbuterol Tartrate (Levalbuterol Tartrate Hfa), 2 PUFFS INH DAILY PRN for SOB /Wheezing Lisinopril (Prinivil), 5 MG PO QAM Memantine (Namenda), 5 MG PO BID Ocuvite Preservision (Ocuvite Preservision), 1 TAB PO HS Polyethylene Glycol 3350 (Miralax), 17 GM PO UD PRN for PRN Ranitidine (Zantac), 150 MG PO BID Rivaroxaban (Xarelto), 15 MG PO HS Selegiline HCl (Selegiline HCl), 5 MG PO BID Medication Instructions For Your Scheduled Surgery - Hold the following medications 2 weeks prior to surgery: Selegiline HCl (Selegiline HCl), 5 MG PO BID - INSTRUCTIONS TO BE GIVEN BY CARDIOLOGY AND SURGEON: Rivaroxaban (Xarelto), 15 MG PO HS - Hold the following medications the morning of surgery: Furosemide (Lasix), 40 MG PO DAILY PRN for Polyethylene Glycol 3350 (Miralax), 17 GM PO UD PRN for PRN Lisinopril (Prinivil), 5 MG PO QAM Ferrous Sulfate (Ferrous Sulfate), 325 MG PO UD Docusate Sodium (Docusate Sodium), 100 MG PO Q2D OR PRN - Take the following medications the morning of surgery with a sip of water: Ranitidine (Zantac), 150 MG PO BID Carbidopa-Levodopa (Carbidopa/Levodopa Odt), 25-250 MG PO TID PRN for PARKINSON' S CONTROL (if needed) Carbidopa/Levodopa (Sinemet 25MG/100MG), 3 TABS PO QID Gabapentin (Neurontin), 300 MG PO UD PRN for Pain (if needed) Hydrocodone/Acetaminophen 5MG/325MG ([place] 5MG/325MG), 1 TABLET PO Q6 PRN for Pain (if needed, can be taken up to four hours before surgery) Levalbuterol Tartrate (Levalbuterol Tartrate Hfa), 2 PUFFS INH DAILY PRN for SOB /Wheezing (if needed, and bring with you to the hospital) Acetaminophen/Codeine (Tylenol W/Codeine #3), 1 TAB PO Q8 PRN for Pain (if needed, can be taken up to four hours before surgery) Memantine (Namenda), 5 MG PO BID - Take the following medications as scheduled the night before surgery: Ranitidine (Zantac), 150 MG PO BID Carbidopa-Levodopa (Sinemet Cr 50-200 mg), 1 TAB PO HS Carbidopa-Levodopa (Carbidopa/Levodopa Odt), 25-250 MG PO TID PRN for PARKINSON' S CONTROL (if needed) Carbidopa/Levodopa (Sinemet 25MG/100MG), 3 TABS PO QID Artificial Tear Ointment (Eye Lubricant), 1 APPLN OPB HS (BRING WITH YOU TO THE HOSPITAL) Gabapentin (Neurontin), 300 MG PO UD PRN for Pain (if needed) Gabapentin (Neurontin), 100 MG PO HS Furosemide (Lasix), 40 MG PO DAILY PRN for (if needed) Ocuvite Preservision (Ocuvite Preservision), 1 TAB PO HS (BRING WITH YOU TO THE HOSPITAL) Calcium Carbonate-Vitamin D (Calcium + D3 600-200 mg-Unit), 1 TAB PO QPM Acetaminophen/Codeine (Tylenol W/Codeine #3), 1 TAB PO Q8 PRN for Pain (if needed) Amiodarone Hcl (Cordarone), 200 MG PO QPM Clonazepam (Klonopin), 0.25 MG PO HS Donepezil HCl (Donepezil HCl), 10 MG PO HS Docusate Sodium (Docusate Sodium), 100 MG PO Q2D OR PRN (if needed) Memantine (Namenda), 5 MG PO BID If you have any questions please call us at [phone] or [phone] or [phone]
[~2017-09-29] VITALS: Ht 160 cm; Wt 89.5 kg
[2017-09-29] VITALS (9 sets, daily range): BP systolic 118–168; BP diastolic 65–84; PULSE 51–62; TEMP 36.4–37.2; O2SAT 93–100; Ht 160 cm; Wt 89.5 kg
[~2017-09-29 04:47] MED LIST changes: +ACET-749 PO; +ARC5 PO; -BND25 PO; +CALC-388 PO; +CLON0.5T3 PO; +DOCU100C31 PO; -DONE1TAB11 PO; +FERR325T5 PO; +GABA-112 PO; +GABA-113 PO; +HYDR-5688 PO; +LISI-729 PO; -LISI5TAB PO; -MELA1TAB5 PO; +MULT-190 PO; +POLY335019 PO; +RIVA1.5T PO
[2017-09-29] MEDS ORDERED: LACTATED RINGER'S 1000ML 1,000 ML IV SCH (06:00)
[2017-09-29] MEDS ORDERED: CEFAZOLIN 2000MG IV PUSH 10 ML IV SCH (06:00)
[2017-09-29] MEDS ORDERED: FENTANYL CITRATE INJ 50 MCG/1 ML 2 ML VIAL ONE ×3 (06:36→10:38)
[2017-09-29] MEDS ORDERED: MIDAZOLAM HCL 1 MG/ML 2ML VIAL ONE (06:36)
[2017-09-29] MEDS ORDERED: BUPIVACAINE/EPINEPHRINE 0.5% MPF 1:200,000 30 ML VIAL ONE (06:56)
[2017-09-29] MEDS ORDERED: BACITRACIN 50000 UNIT VIAL ONE (06:56)
[2017-09-29] MEDS ORDERED: ALBUMIN HUMAN 5% 12.5 GM/250 ML VIAL IV ONE (07:27)
--- NOTE | 2017-09-29 07:29 | History & Physical Bridge Note ---
H&P Re-Evaluation Bridge Note: I have examined the patient, reviewed the History & Physical and in the interval since the performance of the History & Physical I have noted the following changes of clinical significance: No changes noted
--- NOTE | 2017-09-29 07:30 | History and Physical ---
History & Physical Date Sep 29, 2017. Chief Complaint Back and leg pain History of Present Illness The patient is a 82 year old female with complaints of back and leg pain Past Medical/Surgical History Medical Problems: (1) Atrial fibrillation (2) C. difficile colitis (3) Chronic lower back pain (4) Hyperlipidemia (5) Hyperosmolality and hypernatremia (6) Hypertension (7) Neuropathy (8) Parkinsons Additional History Hepatic Disease: No Endocrine Disorder: No Kidney Disease: No Hypertension: Yes Heart Disease: No Bleeding Tendencies: No Infectious Diseases: No Allergies Coded Allergies: Succinylcholine (Verified Allergy, Severe, PSEUDO-CHOLINESTERASE DEFICIENCY, 09/29/17) GENETIC TESTING WAS DONE TO CONFIRM DX OF PSEUDO-CHOLINESTERASE DEFICIENCY Home Medications Scheduled Amiodarone Hcl (Cordarone), 200 MG PO QPM Artificial Tear Ointment (Eye Lubricant), 1 APPLN OPB HS Calcium Carbonate-Vitamin D (Calcium + D3 600-200 mg-Unit), 1 TAB PO QPM Carbidopa-Levodopa (Sinemet Cr 50-200 mg), 1 TAB PO HS Carbidopa/Levodopa (Sinemet 25MG/100MG), 3 TABS PO QID Clonazepam (Klonopin), 0.25 MG PO HS Docusate Sodium (Docusate Sodium), 100 MG PO Q2D OR PRN Donepezil HCl (Donepezil HCl), 10 MG PO HS Ferrous Sulfate (Ferrous Sulfate), 325 MG PO UD Gabapentin (Neurontin), 100 MG PO HS Lisinopril (Prinivil), 5 MG PO QAM Memantine (Namenda), 5 MG PO BID Ocuvite Preservision (Ocuvite Preservision), 1 TAB PO HS Ranitidine (Zantac), 150 MG PO BID Rivaroxaban (Xarelto), 15 MG PO HS Selegiline HCl (Selegiline HCl), 5 MG PO BID Scheduled PRN Acetaminophen/Codeine (Tylenol W/Codeine #3), 1 TAB PO Q8 PRN for Pain Carbidopa-Levodopa (Carbidopa/Levodopa Odt), 25-250 MG PO TID PRN for PARKINSON' S CONTROL Furosemide (Lasix), 40 MG PO DAILY PRN for Gabapentin (Neurontin), 300 MG PO UD PRN for Pain Hydrocodone/Acetaminophen 5MG/325MG ([place] 5MG/325MG), 1 TABLET PO Q6 PRN for Pain Levalbuterol Tartrate (Levalbuterol Tartrate Hfa), 2 PUFFS INH DAILY PRN for SOB /Wheezing Polyethylene Glycol 3350 (Miralax), 17 GM PO UD PRN for PRN Physical Examination Skin: warm/dry, no rash Eyes: normal inspection, EOMI, sclerae normal ENT: normal ENT inspection, pharynx normal Head: normocephalic, atraumatic Neck: supple, no adenopathy, trachea midline Respiratory/Chest: lungs clear, normal breath sounds, no respiratory distress Cardiovascular: regular rate, rhythm, no edema, no murmur Abdomen / GI: normal bowel sounds, non tender Back: normal inspection Extremities: normal inspection, normal range of motion Neurologic/Psych: no motor/sensory deficits, alert, normal reflexes, oriented x 3 Diagnosis Lumbar spinal stenosis Plan of Treatment L3 to S1 decompression with instrumentation versus in situ fusion
[2017-09-29] MEDS ORDERED: HYDROmorphone INJ 2 MG/ML SYR/VIAL ONE ×2 (08:08→10:47)
[2017-09-29] MEDS ORDERED: FENTANYL CITRATE INJ 50 MCG/1 ML 2 ML VIAL IV PRN (08:15)
[2017-09-29] MEDS ORDERED: HYDROmorphone INJ 1 MG/ML SYR IV PRN (08:15)
[2017-09-29] MEDS ORDERED: LABETALOL HCL IV 5 MG/ML 20ML IV PRN (08:15)
[2017-09-29] MEDS ORDERED: EpHEDrine SULFATE INJ 50 MG/ML AMP IV PRN (08:15)
[2017-09-29] MEDS ORDERED: MEPERIDINE HCL 25 MG/ML CARP IV PRN (08:15)
[2017-09-29] MEDS ORDERED: ATROPINE SULFATE 0.1 MG/ML 5ML SYR IV PRN (08:15)
[2017-09-29] MEDS ORDERED: ONDANSETRON INJ 2 MG/ML 2 ML VIAL IV PRN ×2 (08:15→11:00)
[2017-09-29] MEDS ORDERED: FLOSEAL HEMOSTATIC MATRIX 10ML TOP ONE (10:26)
[2017-09-29] MEDS ORDERED: SODIUM CHLORIDE 0.9% 1000ML 1,000 ML IV SCH (10:51)
[2017-09-29] MEDS ORDERED: ONDANSETRON INJ 2 MG/ML 2 ML VIAL ONE (10:52)
[2017-09-29] MEDS ORDERED: LIDOCAINE HCL 2% 2 ML VIAL (20MG/ML) ONE (10:52)
[2017-09-29] MEDS ORDERED: NEOSTIGMINE METHYLSULFATE 1 MG/ML 10ML VIAL ONE (10:52)
[2017-09-29] MEDS ORDERED: GLYCOPYRROLATE INJ 0.2 MG/ML VIAL ONE (10:52)
[2017-09-29] MEDS ORDERED: DEXAMETHASONE SOD INJ 4 MG/ML VIAL ONE (10:52)
[2017-09-29] MEDS ORDERED: ROCURONIUM BROMIDE 10 MG/ML 5 ML VIAL IV ONE (10:52)
[2017-09-29] MEDS ORDERED: PROPOFOL IV EMULSION 10 MG/ML 20 ML VIAL IV ONE (10:52)
--- NOTE | 2017-09-29 10:53 | DIAGNOSTIC IMAGING REPORT ---
INTRAOPERATIVE RADIOGRAPHS CLINICAL HISTORY: L3-S1 spinal fusion. Fluoroscopy time: 32 seconds. FINDINGS: 2 spot fluoroscopic views of the lumbar spine are obtained. There has been discectomy at L4-L5 with laminectomy and posterior fusion from L3 -S1. Interpedicular screws are present at all levels. The orthopedic hardware appears intact. IMPRESSION: Intraoperative images from L3 -S1 spinal fusion as above. Electronically signed by: Jameel Martino M.D. 09/29/2017 10:52 AM Dictated Date/Time: 09/29/2017 10:51 AM
[2017-09-29] MEDS ORDERED: hydrOXYzine HCL 25 MG TAB PO PRN (11:00)
[2017-09-29] MEDS ORDERED: LORAZEPAM 0.5 MG TAB PO PRN (11:00)
[2017-09-29] MEDS ORDERED: BISACODYL 10 MG SUPP PR PRN (11:00)
[2017-09-29] MEDS ORDERED: LORAZEPAM INJ 0.5 MG in SYRINGE 0.75 ML IV PRN (11:00)
[2017-09-29] MEDS ORDERED: NALOXONE HCL 0.4 MG/1 ML VIAL/CARP IV PRN ×2 (11:00)
[2017-09-29] MEDS ORDERED: ACETAMINOPHEN 500 MG TAB PO PRN (11:00)
[2017-09-29] MEDS ORDERED: ALUMINUM/MAGNESIUM SUSP 30 ML UDC PO PRN (11:00)
[2017-09-29] MEDS ORDERED: PROMETHAZINE HCL INJ 12.5 MG in SODIUM CHLORIDE 0.9% 50ML 50 ML IV PRN (11:00)
[2017-09-29] MEDS ORDERED: ACETAMINOPHEN IV 100 ML IV PRN (11:00)
[2017-09-29] MEDS ORDERED: MAGNESIUM HYDROXIDE SUSP 30 ML UDC PO PRN (11:00)
[2017-09-29] MEDS ORDERED: SOD PHOSPHATE/SOD BIPHOSPHATE ENEMA 132 ML BTL PR PRN (11:00)
[2017-09-29] MEDS ORDERED: DO NOT ADMINISTER PNEUMOCOCCAL VACCINE PRN ×2 (11:00)
[2017-09-29] MEDS ORDERED: FAMOTIDINE 20 MG TAB PO PRN (11:00)
[2017-09-29] MEDS ORDERED: FUROSEMIDE 40 MG TAB PO PRN (11:00)
[2017-09-29] MEDS ORDERED: LEValbuterol HFA 15GM INHALER INH PRN (11:00)
[2017-09-29] MEDS ORDERED: METOCLOPRAMIDE HCL INJ 5 MG/ML 2 ML VIAL IV PRN (11:00)
[2017-09-29] MEDS ORDERED: DO NOT ADMINISTER FLU VACCINE PRN ×3 (11:00)
[2017-09-29] MEDS ORDERED: CEFAZOLIN IV 2,000 MG in DEXTROSE 5% 50ML 50 ML IV SCH (11:00)
--- NOTE | 2017-09-29 11:00 | [facility] Operative Report ---
Operative Report Operative Date Sep 29, 2017. Pre-Operative Diagnosis Lumbar spinal stenosis Post-Operative Diagnosis Lumbar spinal stenosis Procedure(s) Performed #1 lumbar decompression medial facetectomies foraminotomies L3 4 L4 5 L5-S1. #2 posterior spinal fusion L3 4 L4 5 L5-S1. #3 placement posterior segmental instrumentation L3 to S1. #4 interbody fusion L4 5. #5 placement peek cage 12 x 22 mm at L4 5. #6 placement of locally harvested morcellized autograft in the posterior lateral gutters. #7 placement infuse collagen sponge commode Master graft in the posterior lateral gutters and ostial amp in the interbody space. Surgeon Dr. Webster Merchandising Specialist Surgeon(s) none Estimated Blood Loss 500 ML Findings Severe lumbar spinal stenosis with spondylolisthesis Specimens none per surgeon Description of Procedure Patient was met with preoperatively case discussed all questions addressed. After informed consent obtained patient was taken operative suite underwent intubation placed in a prone position the Chris table top Mohamud frame all bony prominences were well-padded eyes inspected to ensure no external pressure placed upon them. This point the lumbar spine was prepped and draped nostril fashion. Sharp dissection with the assistance of Bovie cautery was performed onto an exposing the lamina and transverse processes of L3 L4-L5 and sacral alar bilaterally. From a caudal to cephalad fashion complete laminectomy of L5 L4 and L3 was performed addressing severe lateral recess and foraminal stenosis. After this complete pedicle screws are placed in L3-L4 L5-S1 levels bilaterally with the assistance of fluoroscopy in the properly sized shireen placed. Through a trans-foraminal approach a left we discectomy of L4 5 was performed and plate could to subcortical bleeding bone and a 12 x 22 mm peek cage filled with ostial amp bone graft tapped in position. The rods were then locked and final position bilaterally. Transverse processes of L3 L4-L5 and the sacral alar burred to subcortical bleeding bone. Infuse collagen sponge mask graft locally harvested morcellized autograft was placed in the posterior lateral gutters. 15 round MELISSA drain inserted. Incision was then closed with 1 Vicryl in the fascia 2-0 Vicryl subcutaneous cutaneously 4 Monocryl for final skin closure Steri-Strips sterile dressings placed. Patient we can take PACU stable condition. I attest to the content of the Intraoperative Record and any orders documented therein. Any exceptions are noted below.
[2017-09-29] MEDS ORDERED: HYDROmorphone HCL 0.5MG/ML 50 ML CASSETTE ONE (11:06)
--- NOTE | 2017-09-29 11:51 | Anesthesiology Progress Note ---
Anesthesia Post Op Note Date & Time Sep 29, 2017 at 11:50 Vital Signs Pain Intensity: 0 Vital Signs Past 12 Hours Date Time Temp Pulse Resp B/P (MAP) Pulse Ox O2 Delivery O2 Flow Rate FiO2 09/29/17 11:35 36.2 67 16 156/59 100 Nasal Cannula 4 09/29/17 11:25 72 14 158/65 100 Nasal Cannula 4 09/29/17 11:15 75 14 149/84 100 Oxymask 10 09/29/17 11:05 76 14 158/72 100 Oxymask 10 09/29/17 10:58 37.1 77 14 134/78 100 Oxymask 10 09/29/17 06:08 36.7 62 20 168/79 99 Room Air Notes Mental Status: alert / awake / arousable, participated in evaluation Pt Amnestic to Procedure: Yes Nausea / Vomiting: adequately controlled Pain: adequately controlled Airway Patency, RR, SpO2: stable & adequate BP & HR: stable & adequate Hydration State: stable & adequate Anesthetic Complications: no major complications apparent
[2017-09-29] MEDS ORDERED: NURSING VERBAL MED ORDER ONE ×3 (12:00→18:00)
[2017-09-29] MEDS ORDERED: CARBIDOPA/LEVODOPA 25/100MG TAB PO ONE (12:30)
[2017-09-29] MEDS: SODIUM CHLORIDE 0.9% 1000ML 1,000 ML IV SCH ×2 (13:15→18:33)
[2017-09-29] MEDS ORDERED: CARBIDOPA/LEVODOPA 25-250 1 EA TAB PO PRN (13:15)
[2017-09-29] MEDS: CARBIDOPA/LEVODOPA 25/100MG TAB PO SCH ×3 (13:32→20:55)
--- NOTE | 2017-09-29 14:29 | Anesthesiology Progress Note ---
Anesthesia Post Op Note Date & Time Sep 29, 2017 at 14:22 Vital Signs Pain Intensity: 10.0 Vital Signs Past 12 Hours Date Time Temp Pulse Resp B/P (MAP) Pulse Ox O2 Delivery O2 Flow Rate FiO2 09/29/17 13:20 54 16 139/84 (102) 100 Nasal Cannula 2.0 09/29/17 12:48 36.4 54 15 146/78 (100) 100 Nasal Cannula 2.0 09/29/17 12:20 100 Nasal Cannula 2.0 09/29/17 12:20 100 Nasal Cannula 2.0 09/29/17 12:20 36.4 55 14 126/75 (92) 100 Nasal Cannula 2.0 09/29/17 12:05 36.2 59 16 155/62 100 Nasal Cannula 4 09/29/17 11:55 36.2 57 16 155/62 100 Nasal Cannula 4 09/29/17 11:45 36.2 67 16 138/67 100 Nasal Cannula 4 09/29/17 11:35 36.2 67 16 156/59 100 Nasal Cannula 4 09/29/17 11:25 72 14 158/65 100 Nasal Cannula 4 09/29/17 11:15 75 14 149/84 100 Oxymask 10 09/29/17 11:05 76 14 158/72 100 Oxymask 10 09/29/17 10:58 37.1 77 14 134/78 100 Oxymask 10 09/29/17 06:08 36.7 62 20 168/79 99 Room Air Notes Called by nurse for pt c/o right eye pain. Visited and found pt resting in bed. She is sleepy but responsive. Does not want to open either eye. Family members at bedside reported that when pt arrived in room, she was unable to open right eye due to residual adhesive (from eye tape used in OR). It is possible that she was rubbing her eye related to this. I believe that attempts to examine eye at this point will cause more irritation without likely benefit. Suggested rest and cold compresses. Pt and family agreed. Will add erythromycin ointment if symptom persists.
[2017-09-29] MEDS: HYDROmorphone HCL 0.5MG/ML 50 ML CASSETTE IV PRN ×2 (15:11→23:15)
--- NOTE | 2017-09-29 16:30 | Medical Consult ---
Consultation Note Date of Service Sep 29, 2017. Consultation Note Dr Webster consulted for medical management right eye pain, called to entry level sales consultant ophth Dr. Lilly ([phone]) he said he almost 100% sure it is because of dry eye after prolong procedure, or is from cornea abrasion, recs erythromycin ointment q2 hr, an dpt can see him in office if not getting better, and he is ok to call him at any time if pain is getting worse. ordered, talked to arslan,[phone]
[2017-09-29] MEDS: CEFAZOLIN IV 2,000 MG in SYRINGE 0 ML IV SCH (16:33)
--- NOTE | 2017-09-29 17:17 | HISTORY & PHYSICAL EXAMINATION ---
DATE OF ADMISSION: 09/29/2017 This is level 3 inpatient consultation, 35 minutes. PHYSICIAN REQUESTING CONSULTATION: Dr. Webster. REASON FOR CONSULTATION: Postop medical management. HISTORY OF PRESENT ILLNESS: The patient is an 82-year-old white female with conditions of lumbar spine stenosis. She was admitted to Dr. Webster's service and had procedure done which was L3-S1 decompression, the procedure went well. The patient has past medical history of AFib, C. diff, lower back pain, dyslipidemia, hypernatremia, hypertension, neuropathy, Parkinson's disease. When I interviewed the patient and 2 daughters at bedside, they reported right eye pain after the procedure. Per daughters, they thought it may be because of the tape applying to this area during the procedure. However, the patient reported significant right eye pain, difficult to open up. It is tender when I press on top of it. Denied nausea, vomiting. Denied headache. Denied fever or chill. Denied cough, sputum, shortness of breath. Denied chest pain, palpitation, lower extremity swelling. Denied nausea, vomiting, abdominal pain, diarrhea or constipation. Denied dysuria, urgency or frequencies. Lower back pain is fairly well controlled. PAST MEDICAL HISTORY: Includes atrial fibrillation, C. diff colitis, chronic lower back pain, dyslipidemia, hyperosmolality and hypernatremia, hypertension, neuropathy, Parkinson's disease. ALLERGIES: ALLERGIC TO SUCCINYLCHOLINE. HOME MEDICATIONS: Include amiodarone 200 mg p.o. q.p.m., artificial tears OPB at bedtime, calcium with vitamin D one tab p.o. q.p.m., Sinemet 50/200 one tab p.o. at bedtime, Sinemet 25 mg/100 mg 3 tabs p.o. q.i.d., clonazepam 0.25 mg p.o. at bedtime, docusate 100 mg p.o. q. 2 days p.r.n. for constipation, donepezil 10 mg p.o. at bedtime, ferrous sulfate 325 mg p.o., use as directed., Neurontin 100 mg p.o. at bedtime, lisinopril 5 mg p.o. q.a.m., Namenda 5 mg p.o. b.i.d., Ocuvite 1 tab p.o. at bedtime, Zantac 150 mg p.o. b.i.d., Xarelto 15 mg p.o. at bedtime, selegiline 5 mg p.o. b.i.d., Tylenol with Codeine 1 tab p.o. q. 8 hours p.r.n. for pain, carbidopa/levodopa 25/250 mg p.o. t.i.d. p.r.n. for Parkinson's disease control, Lasix 40 mg p.o. daily p.r.n., Neurontin 300 mg p.o., use as directed for pain, [place] 5/325 one tab p.o. q. 6 hours p.r.n. for pain, levalbuterol 2 puffs inhaled daily p.r.n. for shortness of breath or wheezing, MiraLax 17 grams p.o., use as directed p.r.n. PHYSICAL EXAMINATION: GENERAL: The patient is a white female. HEENT: Head is normocephalic. Pupils equal, round, respond to light. Right eye is closed, reluctant to opening up, reported pain when opening the eyelid. When touching the eyeballs, she reported pain. There is no conjunctival injection. Not able to evaluate if she has any corneal laceration or not. ENT was normal. NECK: Unremarkable. LUNGS: Clear. Normal breathing sounds. HEART: Regular rhythm. S1, S2. No murmurs. ABDOMEN: Soft, nontender. Bowel sounds positive. BACK: Lower back has incisions in dressing. LOWER EXTREMITIES: Normal to inspection, normal range of motion. LABORATORY STUDIES: Recent lab preop on 08/26/2017: WBC 5.3, hemoglobin 11, platelet 148. PT/INR was 11.4/1.1. Sodium 139, potassium 4.3, BUN 27, creatinine 1.13. Total bilirubin 1.8, AST 14, ALT 6, alkaline phosphatase 119. Total CK 43. Cardiac enzymes, troponin was negative. Liver function was within normal limits. Lipase 160. TSH and T4 were normal. IMAGING STUDIES: Include a brain MRI on 08/27/2017, no acute intracranial findings. Chest x-ray on 08/26/2017 was chronic changes, no acute process. EKG on 08/26/2017 shows sinus eddy, otherwise no obvious ST-T phase changes. ASSESSMENT AND PLAN: An 82-year-old white female with conditions as below: 1. Spinal stenosis, status post L3-S1 decompression. This condition will be managed by the primary team. The patient was on Xarelto preop, was held. I feel it will be okay to restart it tomorrow; however, decision will be per primary team. The patient's pain control, PT/OT evaluation, and discharge plan will be per primary team. 2. Right eye pain which is significant pain. The patient rates the eye pain is around 6-7/10, difficult to open eyes. Local tender to palpation. However, the patient has no nausea or vomiting. I do not believe there is any glaucoma that is going on. However, other differential diagnosis includes corneal abrasion or venous thrombosis. The patient has had macular degeneration before. I will find out who is on-call signals intelligence analysis manager and I will talk to him and ask him to see the patient stat. see other note 3. History of atrial fibrillation. Currently in normal sinus rhythm. 4. Dyslipidemia. 5. Parkinson's disease. 6. Hypertension. 7. Neuropathy. the above Condition are stable. We will continue home medications. Family did report the patient needs to have medications of Parkinson's disease according to home schedule. I will have nurse to adjust that. 8. Like I mentioned, deep vein thrombosis prophylaxis per primary team. I discussed with the patient and family, answered all their questions. The patient is full code. MTDD
[2017-09-29] MEDS: DEXAMETHASONE INJ 6 MG in SYRINGE 0 ML IV SCH (18:07)
[2017-09-29] MEDS ORDERED: CARBIDOPA/LEVODOPA 25/100MG TAB PO STA (18:08)
[2017-09-29] MEDS: FERROUS SULFATE 325 MG TAB PO SCH (18:41)
[2017-09-29] MEDS: ERYTHROMYCIN OP OINT 5 MG/GM 3.5 GM TUBE OP SCH ×3 (18:42→22:06)
[2017-09-29] MEDS: ARTIFICIAL TEARS OP OINT 3.5 GM TUBE OPB SCH (20:48)
[2017-09-29] MEDS: MEMANTINE 5 MG TAB PO SCH (20:50)
[2017-09-29] MEDS: GABAPENTIN 100 MG CAP PO SCH (20:50)
[2017-09-29] MEDS: SELEGILINE HCL 5 MG CAP PO SCH (20:51)
[2017-09-29] MEDS: CEROVITE ADV FORMULA TAB PO SCH (20:52)
[2017-09-29] MEDS: AMIODARONE 200 MG TAB PO SCH (20:52)
[2017-09-29] MEDS: DOCUSATE SODIUM/SENNA 50/8.6MG TAB PO SCH (20:53)
[2017-09-29] MEDS: RANITIDINE HCL 150 MG TAB PO SCH (20:53)
[2017-09-29] MEDS: DONEPEZIL HCL 5 MG TAB PO SCH (20:53)
[2017-09-29] MEDS: CARBIDOPA/LEVODOPA 50/200MG EXT REL TAB PO SCH (20:54)
[2017-09-29] MEDS ORDERED: CARBIDOPA/LEVODOPA 25/100MG TAB PO SCH (21:00)
[2017-09-29] MEDS: CLONAZEPAM 0.5 MG TAB PO SCH (21:01)
[2017-09-30] VITALS (12 sets, daily range): BP systolic 78–155; BP diastolic 47–82; PULSE 36–66; TEMP 36.4–37; O2SAT 97–100
[2017-09-30] MEDS: CEFAZOLIN IV 2,000 MG in SYRINGE 0 ML IV SCH (00:03)
[2017-09-30] MEDS: ERYTHROMYCIN OP OINT 5 MG/GM 3.5 GM TUBE OP SCH ×13 (00:03→23:19)
[2017-09-30] MEDS: SODIUM CHLORIDE 0.9% 1000ML 1,000 ML IV SCH ×2 (01:28→08:07)
[2017-09-30] MEDS: DEXAMETHASONE INJ 6 MG in SYRINGE 0 ML IV SCH ×2 (01:29→08:07)
[2017-09-30] MEDS ORDERED: METOCLOPRAMIDE HCL INJ 5 MG/ML 2 ML VIAL IM STA (02:55)
[2017-09-30] MEDS ORDERED: SODIUM CHLORIDE 0.9% 1000ML 1,000 ML IV SCH (03:00)
[2017-09-30] MEDS ORDERED: METOCLOPRAMIDE HCL INJ 5 MG/ML 2 ML VIAL IV PRN (03:00)
--- NOTE | 2017-09-30 03:03 | Progress Note ---
Progress Note Date of Service Sep 30, 2017. Progress Note RESIDENT NIGHT COVERAGE NOTE Code jose alberto called around 240AM, patient had become lethargic and hypotensive, SBP in 70's and had also become progressively bradycardic to 30's. By the time I arrived, Henrietta Booker, ICU PA was present. The patient was speaking to the RN and HR had improved to 40's. Dr Bennett arrived as well. EKG was obtained and showed sinus bradycardia. She reports nausea but had not vomited. 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
[2017-09-30 05:56] LABS: BUN/CREATININE RATIO 25.9 (10-20); CALCIUM 8.2 mg/dl (8.5-10.1); CREATININE 1.09 mg/dl (0.60-1.20); MAGNESIUM 1.9 mg/dl (1.8-2.4); POTASSIUM 4.2 mmol/L (3.5-5.1)
[2017-09-30] MEDS ORDERED: HYDROmorphone INJ 1 MG/ML SYR IV PRN ×2 (06:00)
[2017-09-30] MEDS ORDERED: DC PCA ONE (06:00)
[2017-09-30] MEDS ORDERED: OXYCODONE HCL IR 5 MG TAB (IMMEDIATE RELEASE) PO PRN (06:00)
[2017-09-30] MEDS ORDERED: HYDROmorphone INJ 0.5 MG/0.5 ML SYR IV PRN (06:00)
[2017-09-30 06:08] LABS: COMPLETE YES; HEMATOCRIT 31.3 % (37-47); IG% 0.3 %; LYMPH % 1.3 %; LYMPH ABS # 0.12 K/uL (1.2-3.4); MEAN CELL VOLUME 94.6 fL (80-100); MEAN CORPUSCULAR HEMOGLOBIN 30.2 pg (25-34); MEAN CORPUSCULAR HGB CONC 31.9 g/dl (32-36); MEAN PLATELET VOLUME 11.2 fL (7.4-10.4); MONO % 3.5 %; NEUT % 94.9 %; PLATELET COUNT 159 K/uL (130-400); RED BLOOD COUNT 3.31 M/uL (4.2-5.4); WHITE BLOOD COUNT 9.52 K/uL (4.8-10.8)
[2017-09-30] MEDS: SELEGILINE HCL 5 MG CAP PO SCH ×2 (08:06→20:42)
[2017-09-30] MEDS: CARBIDOPA/LEVODOPA 25/100MG TAB PO SCH ×4 (08:06→17:43)
[2017-09-30] MEDS: RANITIDINE HCL 150 MG TAB PO SCH ×2 (08:07→20:41)
[2017-09-30] MEDS: MEMANTINE 5 MG TAB PO SCH ×2 (08:07→20:40)
[2017-09-30] MEDS ORDERED: GLUCAGON FOR INJ 1 MG VIAL SQ PRN (09:00)
[2017-09-30] MEDS ORDERED: LANTUS PER UNIT CHARGE SQ ONE (09:00)
[2017-09-30] MEDS ORDERED: GLUCOSE 10 TABS/TUBE PO PRN (09:00)
[2017-09-30] MEDS ORDERED: LISINOPRIL 5 MG TAB PO SCH (09:00)
[2017-09-30] MEDS ORDERED: GLUCOSE 40% GEL 15 GM TUBE PO PRN (09:00)
[2017-09-30] MEDS ORDERED: DEXTROSE 50% 50 ML SYR IV PRN (09:00)
[2017-09-30] MEDS ORDERED: PHARMACY GLYCEMIC MGMT CONSULT SCH (09:42)
[2017-09-30] MEDS: INSULIN ASPART 100 UNITS/ML 3 ML PEN SC SCH ×4 (09:55→20:31)
--- NOTE | 2017-09-30 10:53 | Clinical Documentation Query ---
LAURENCE Epperson : CLINICAL DOCUMENTATION QUERIES QUERY 1 OF 2 Patient is an 82 year old female who underwent elective posterior lumbosacral decompression and intstrumented interbody fusion on 12/. POD #1, H&H is 10.0 g/dl and 31.3%. EBL for the procedure was 500 ml's with subsequently documented losses totaling an additional 325 ml's to date. Additionally, I/O is net positive for about 3,800 ml's. She is being monitored with serial hematology and I/O including drain outputs. Please clarify as clinically appropriate. Thank you. In your clinical opinion is this patient being managed for: (x ) Acute blood loss anemia ( ) Not Agree ( ) Other explanation of clinical findings (Please Explain) ( ) Unable to determine (Please Define) ( ) Need to Discuss The medical record reflects the following clinical findings, treatment, and risk factors. Clinical Indicators: As above Treatment:She is being monitored with serial hematology and I/O including drain outputs Risk Factors: IVF administration, perioperative blood loss QUERY 2 OF 2 Erica jose alberto called for episode of lethargy, hypotension in the setting of bradycardia to the 30's. Treatment has included IVF and transfer to telemetry and pending cardiology consultation. Risk factors include age, anesthesia, amiodarone, narcotics. No possible/likely/suspected medical diagnosis(es) were documented in the medical record as to etiology of this event. Please clarify as clinically able and appropriate. Thank you. In your clinical opinion is this patient being managed for: ( ) Syncope associated with bradycardia, hypotension ( xx) Not Agree ( xx ) Other explanation of clinical findings (Please Explain) post operative state ( ) Unable to determine (Please Define) ( ) Need to Discuss The medical record reflects the following clinical findings, treatment, and risk factors. Clinical Indicators: As above Treatment:Treatment has included IVF and transfer to telemetry and pending cardiology consultation Risk Factors: Age, anesthesia, amiodarone, narcotics Please clarify and document your clinical opinion in the progress notes and discharge summary. Terms such as "probable", "suspected", "likely", "questionable", "possible", or "still to be ruled out" are acceptable. IF IN AGREEMENT, YOU MUST DOCUMENT ABOVE DIAGNOSTIC STATEMENT IN DAILY PROGRESS NOTES AND DISCHARGE SUMMARY. This document is not part of the patient's record. Thank You, Kit Viera, RN [phone]
--- NOTE | 2017-09-30 11:51 | Cardiology Consultation ---
Cardiology Consultation Date of Consultation: Sep 30, 2017. Requesting Physician: Eleanor Reason for Consultation: Atrial fibrillation History of Present Illness The patient is an 82-year-old woman with a history of paroxysmal atrial fibrillation, diastolic heart failure and valvular heart disease who underwent a back surgery yesterday. I was asked to evaluate the patient in the postoperative period. Patient's surgery appears to have been uncomplicated with the exception of some possible dryness involving the right eye. During the interview this morning the patient appeared quite confused. She was unclear as to why she was in the hospital. When asked about symptoms she often responded by asking me if she provided the right answer. On directed questioning she denied pain, shortness of breath or nausea. She claims to be poorly mobile due to trouble with back pain in the past. Additional history was difficult to obtain as the patient could not provide any answers. According to the record, a code purple was called last evening. Patient had briefly lost consciousness and become unresponsive. Her heart rate and blood pressure were both low at that time. This came immediately after a sensation of nausea and medication for nausea. Past Medical/Surgical History Paroxysmal atrial fibrillation Preserved LV systolic function Mitral regurgitation Dimension Parkinsonism number next macular degeneration hyperparathyroidism hypercalcemia gastroesophageal reflux disease Surgical history Cataract surgery Carpal tunnel release Abdominal surgery Varicose vein ligation Family History No pertinent family history Noncontributory given her advanced age Social History Smoking Status: Never Smoker History of Alcohol Use: No Review of Systems Additional symptoms were not obtainable due to the patient's baseline dementia and confusion All Other Systems: Reviewed and Negative Allergies Coded Allergies: Succinylcholine (Verified Allergy, Severe, PSEUDO-CHOLINESTERASE DEFICIENCY, 09/29/17) GENETIC TESTING WAS DONE TO CONFIRM DX OF PSEUDO-CHOLINESTERASE DEFICIENCY Medications Current Inpatient Medications Medications (Trade) Dose Ordered Sig/Geronimo Route Start Time Stop Time Status Last Admin Dose Admin Promethazine HCl 12.5 mg/Sodium Chloride 50.5 ml @ 202 mls/hr Q6H PRN IV 09/29/17 11:00 10/29/17 10:59 Ondansetron HCl (Zofran Inj) 4 mg Q6H PRN IV 09/29/17 11:00 10/29/17 10:59 09/30/17 02:17 4 MG Metoclopramide HCl (Reglan Inj) 10 mg Q6H PRN IV 09/29/17 11:00 10/29/17 10:59 09/30/17 04:39 10 MG Lorazepam (Ativan Tab) 0.5 mg Q8H PRN PO 09/29/17 11:00 10/29/17 10:59 Lorazepam 0.5 mg/ Syringe 1 ml @ 1 mls/min Q8H PRN IV 09/29/17 11:00 10/29/17 10:59 Pneumococcal Polysaccharide Vaccine 1 ea PRN PRN N/A 09/29/17 11:00 10/29/17 10:59 Influenza Virus Vacc Triv Types A&B 1 ea PRN PRN N/A 09/29/17 11:00 10/29/17 10:59 Polyethylene (Miralax Powder Packet) 17 gm Q6 PO 10/01/17 06:00 10/31/17 05:59 Bisacodyl (Dulcolax Supp) 10 mg DAILY PRN SC 09/29/17 11:00 10/29/17 10:59 Magnesium Hydroxide (Milk Of Magnesia Susp) 30 ml DAILY PRN PO 09/29/17 11:00 10/29/17 10:59 Hydromorphone HCl (Dilaudid Inj) 0.5 mg Q3H PRN IV 09/30/17 06:00 10/14/17 05:59 Oxycodone HCl (Roxicodone Immediate Rel Tab) 5-10mg prn moderate to sev... Q4H PRN PO 09/30/17 06:00 10/14/17 05:59 Acetaminophen (Tylenol Tab) 1,000 mg Q8H PRN PO 09/29/17 11:00 10/29/17 10:59 Acetaminophen 100 ml @ 400 mls/hr Q8H PRN IV 09/29/17 11:00 10/29/17 10:59 Naloxone HCl (Narcan Inj) 0.1 mg Q5M PRN IV 09/29/17 11:00 10/29/17 10:59 Senna/Docusate Sodium (Senokot S Tab) 2 tab HS PO 09/29/17 21:00 10/29/17 20:59 09/29/17 20:53 2 TAB Sodium Biphosphate/ Sodium Phosphate (Fleet Enema) 132 ml ONE PRN SC 09/29/17 11:00 10/29/17 10:59 Hydroxyzine HCl (Vistaril Tab) 25 mg Q8H PRN PO 09/29/17 11:00 10/29/17 10:59 Al Hydroxide/Mg Hydroxide (Maalox Susp) 30 ml Q6H PRN PO 09/29/17 11:00 10/29/17 10:59 Diphenhydramine HCl (Benadryl Cap) 25 mg Q6H PRN PO 09/29/17 11:00 10/29/17 10:59 Amiodarone HCl (Cordarone Tab) 200 mg QPM PO 09/29/17 21:00 10/29/17 20:59 Future Hold 09/29/17 20:52 200 MG Artificial Tears (Lacri-Lube Oph Oint) 1 appln HS OPB 09/29/17 21:00 10/29/17 20:59 09/29/17 20:48 1 APPLN Carbidopa/Levodopa (Sinemet Cr 50/ 200MG Tab) 1 tab HS PO 09/29/17 21:00 10/29/17 20:59 09/29/17 20:54 1 TAB Clonazepam (Klonopin Tab) 0.25 mg HS PO 09/29/17 21:00 10/29/17 20:59 09/29/17 21:01 0.25 MG Donepezil HCl (Aricept Tab) 10 mg HS PO 09/29/17 21:00 10/29/17 20:59 09/29/17 20:53 10 MG Furosemide (Lasix Tab) 40 mg DAILY PRN PO 09/29/17 11:00 10/29/17 10:59 Gabapentin (Neurontin Cap) 100 mg HS PO 09/29/17 21:00 10/29/17 20:59 09/29/17 20:50 100 MG Levalbuterol (Xopenex Hfa Inhaler) 2 puffs DAILY PRN INH 09/29/17 11:00 10/29/17 10:59 Memantine (Namenda Tab) 5 mg BID@1000,2100 PO 09/29/17 21:00 10/29/17 20:59 09/30/17 08:07 5 MG Multivitamins/ Minerals (Multivitamin W/ Minerals Tab) 1 tab HS PO 09/29/17 21:00 10/29/17 20:59 09/29/17 20:52 1 TAB Ranitidine HCl (zANTac TAB) 150 mg BID PO 09/29/17 21:00 10/29/17 20:59 09/30/17 08:07 150 MG Carbidopa/Levodopa (Sinemet 25/ 250MG Tab) 1 tab TID PRN PO 09/29/17 13:15 10/29/17 13:14 Selegiline HCl (Eldepryl Cap) 5 mg BID PO 09/29/17 21:00 10/29/17 20:59 09/30/17 08:06 5 MG Hydromorphone HCl (Dilaudid Inj) 1 mg Q3H PRN IV 09/30/17 06:00 10/14/17 05:59 Erythromycin (Erythromycin Oph Oint) 1 appln Q2R OP 09/29/17 18:00 10/09/17 17:59 09/30/17 09:59 1 APPLN Ferrous Sulfate (Feosol Tab) 325 mg DAILY@1600 PO 09/29/17 17:36 10/29/17 17:35 09/29/17 18:41 325 MG Metoclopramide HCl (Reglan Inj) 10 mg Q6H PRN IV 09/30/17 03:00 10/30/17 02:59 Insulin Aspart (novoLOG ASPART) SLIDING SCALE ACHS SC 09/30/17 09:00 10/30/17 08:59 Glucose (Glucose 40% Gel) 15-30 GRAMS 15 GRAMS... UD PRN PO 09/30/17 09:00 10/30/17 08:59 Glucose (Glucose Chew Tab) 4-8 Tablets 4 Tabl... UD PRN PO 09/30/17 09:00 10/30/17 08:59 Dextrose (Dextrose 50% 50ML Syringe) 25-50ML OF 50% DW IV FOR... UD PRN IV 09/30/17 09:00 10/30/17 08:59 Glucagon (Glucagon Inj) 1 mg UD PRN SQ 09/30/17 09:00 10/30/17 08:59 Miscellaneous Information (Consult Glycemic Management Pharmacy) 1 ea UD N/A 09/30/17 09:42 10/30/17 09:41 Carbidopa/Levodopa (Sinemet 25/ 100MG Tab) 3 tab QID@0600,1000,1400,1800 PO 09/30/17 10:00 10/30/17 09:59 09/30/17 10:01 3 TAB Physical Exam Vital Signs Past 12 Hours Date Time Temp Pulse Resp B/P (MAP) Pulse Ox O2 Delivery O2 Flow Rate FiO2 09/30/17 08:00 Room Air 09/30/17 08:00 53 16 91/53 (66) 99 Room Air 09/30/17 05:28 37.0 59 16 130/80 (97) 98 Room Air 09/30/17 04:00 Room Air 09/30/17 03:10 36.8 48 18 148/82 (104) 100 Nasal Cannula 2.0 09/30/17 03:10 2.0 09/30/17 02:34 36 78/47 (57) 100 Nasal Cannula 2.0 38 09/30/17 00:00 Room Air Mood affect appear normal. She was confused and not oriented. HEENT: Sclerae are anicteric. Pupils are equal and reactive to light and accommodation. Extraocular movements were intact. Neuro: Cranial nerves intact Neck: Examination of the submandibular region did not reveal any significant lymphadenopathy. Carotids are palpable bilaterally and free of bruits on auscultation. There was no evidence of jugular venous distention. The thyroid was not enlarged. Lungs: Lungs are clear to auscultation bilaterally. There are no rales wheezes or rhonchi. She has normal respiratory effort without use of accessory muscles. There is normal pulmonary excursion. Cardiac: The rhythm was regular. S1 and S2 were normal. Soft holosystolic murmur. The PMI was not markedly displaced on palpation. Abdomen: The abdomen was soft and nontender. Extremities: Patient has bilateral radial pulses that are equal in intensity. There is no evidence cyanosis or clubbing. Skin: There are no rashes noted on examination today. Data Laboratory Results: Last 24 Hours Test 09/30/17 02:31 09/30/17 05:03 Bedside Glucose 151 mg/dl White Blood Count 9.52 K/uL Red Blood Count 3.31 M/uL Hemoglobin 10.0 g/dL Hematocrit 31.3 % Mean Corpuscular Volume 94.6 fL Mean Corpuscular Hemoglobin 30.2 pg Mean Corpuscular Hemoglobin Concent 31.9 g/dl Platelet Count 159 K/uL Mean Platelet Volume 11.2 fL Neutrophils (%) (Auto) 94.9 % Lymphocytes (%) (Auto) 1.3 % Monocytes (%) (Auto) 3.5 % Eosinophils (%) (Auto) 0.0 % Basophils (%) (Auto) 0.0 % Neutrophils # (Auto) 9.04 K/uL Lymphocytes # (Auto) 0.12 K/uL Monocytes # (Auto) 0.33 K/uL Eosinophils # (Auto) 0.00 K/uL Basophils # (Auto) 0.00 K/uL RDW Standard Deviation 57.8 fL RDW Coefficient of Variation 16.5 % Immature Granulocyte % (Auto) 0.3 % Immature Granulocyte # (Auto) 0.03 K/uL Sodium Level 139 mmol/L Potassium Level 4.2 mmol/L Chloride Level 109 mmol/L Carbon Dioxide Level 25 mmol/L Anion Gap 5.0 mmol/L Blood Urea Nitrogen 28 mg/dl Creatinine 1.09 mg/dl Est Creatinine Clear Calc Drug Dose 42.6 ml/min Estimated GFR () 55.1 Estimated GFR (Non- 47.6 BUN/Creatinine Ratio 25.9 Random Glucose 206 mg/dl Calcium Level 8.2 mg/dl Magnesium Level 1.9 mg/dl Telemetry reviewed: Review of her telemetry reveals sinus bradycardia Assessment & Plan 1. Bradycardia: Patient did have an episode of significant bradycardia last evening in the setting of hypotension. Nursing notes suggest that this occurred in the setting of significant nausea. Review of her outpatient record suggests generally normal pulses on amiodarone. I think the event of last evening was likely situational. Likely she had high vagal output at that point in time. Her heart rate continues to be somewhat low and her blood pressure is also borderline. At this point, it would seem reasonable to continue holding her amiodarone. We can make a decision prior to discharge whether she should be sent home on amiodarone. 2. Atrial fibrillation: This is paroxysmal. No atrial fibrillation since admission. We will hold amiodarone as noted above. Given her history of high INRs she was switched to renally dosed Xarelto. This should be re-initiated when it is felt safe by the surgeon. 3. Valvular heart disease: Patient has an element of mitral regurgitation. No current symptoms. No need for evaluation currently. 4. Diastolic heart failure: Patient has a history of diastolic heart failure but currently appears to be well compensated. She has been hydrated over the course of the evening on the to watch her for evidence of pulmonary vascular congestion. Currently oxygenating well. No complaints of dyspnea. Normal lung exam.
--- NOTE | 2017-09-30 12:38 | Pharmacy Progress Note ---
Glycemic Control Intl Consult Date of Service Sep 30, 2017. Scope Glycemic Pharmacist consulted by Dr Webster on 09/30/17 for glycemic control and to write orders per [facility] inpatient glycemic control protocol Objective Weight (Kilograms): 88.100 Accuchecks BSG (last 24hrs): Test 09/30/17 02:31 09/30/17 05:03 09/30/17 09:53 09/30/17 11:30 Bedside Glucose 151 mg/dl (70-90) 150 mg/dl (70-90) 156 mg/dl (70-90) Random Glucose 206 mg/dl (70-99) Laboratory Data (last 24hrs) Test 09/30/17 05:03 Anion Gap 5.0 mmol/L BUN/Creatinine Ratio 25.9 Blood Urea Nitrogen 28 mg/dl Creatinine 1.09 mg/dl Potassium Level 4.2 mmol/L Sodium Level 139 mmol/L White Blood Count 9.52 K/uL Red Blood Count 3.31 M/uL Hemoglobin 10.0 g/dL Hematocrit 31.3 % Mean Corpuscular Volume 94.6 fL Mean Corpuscular Hemoglobin 30.2 pg Mean Corpuscular Hemoglobin Concent 31.9 g/dl Platelet Count 159 K/uL Mean Platelet Volume 11.2 fL Neutrophils (%) (Auto) 94.9 % Lymphocytes (%) (Auto) 1.3 % Monocytes (%) (Auto) 3.5 % Eosinophils (%) (Auto) 0.0 % Basophils (%) (Auto) 0.0 % Neutrophils # (Auto) 9.04 K/uL Lymphocytes # (Auto) 0.12 K/uL Monocytes # (Auto) 0.33 K/uL Eosinophils # (Auto) 0.00 K/uL Basophils # (Auto) 0.00 K/uL HbA1c 5.1% 03/24/17 Recent Pertinent Medications Outpatient Anti-diabetic Regimen: * No prior h/o DM * A1c = 5.1 % 03/24/17 Risk Factors for Insulin Resistance: * Steroids: Dexamethasone 10mg IV given in OR yesterday, 6mg IV Q 8 hrs x 3 post -op doses * Recent Surgery: POD # 1 s/p Lumbar decompression/fusion * Diet: Regular diet ordered Assessment & Plan ASSESSMENT: 09/30/17 * Non-diabetic admitted for lumbar decompression/fusion surgery yesterday * Hyperglycemia noted on this AM's chemistry, GLU 206. * She received high dose IV dexamethasone pre-op and will received x 24 hours post-op. * Per the glycemic service's past experience with steroid induced hyperglycemia in this patient population, will order aggressive basal bolus SQ regimen today based upon severe stress and weight, then reevaluate needs tomorrow AM * Would anticipate insulin resistance induced by dexamethasone to persist 24-48 hrs post-op PLAN FOR INPATIENT GLYCEMIC CONTROL: * Lantus 40 units SQ x 1 * Novolog SQ ACHS * Correction factor 20 mg/dl/unit * carb ratio 1 unit per 6 grams CHO consumed * Goal range Low 120 mg/dL - High 160 mg/dL * Reevaluate insulin doses tomorrow AM * Please note that the plan above was derived based on current level of insulin resistance and hospital stress. These recommendations are appropriate for inpatient admission only. Plan of care upon discharge will need to be reassessed to avoid potential outpatient hypo/hyperglycemia. Thank you.
--- NOTE | 2017-09-30 13:25 | Progress Note ---
Progress Note Date of Service Sep 30, 2017. Progress Note Patient voices no complaints at this time. Her back symptoms or well- controlled. She denies any leg pain. At this point or vital signs are stable. She has reasonable strength testing bilateral lower extremities. Assessment status post lumbar decompression fusion. Plan at this time continue to monitor on telemetry anticipate transfer to the orthopedic floor very soon and will continue physical therapy. Her plan is for [facility] rehabilitation by the weekend.
--- NOTE | 2017-09-30 14:41 | Anesthesiology Progress Note ---
Anesthesia Post Op Note Date & Time Sep 30, 2017 at 14:36 Vital Signs Vital Signs Past 12 Hours Date Time Temp Pulse Resp B/P (MAP) Pulse Ox O2 Delivery O2 Flow Rate FiO2 09/30/17 12:00 97 Room Air 09/30/17 11:46 36.7 52 18 108/68 (81) 97 Room Air 54 99/63 (75) 09/30/17 08:00 Room Air 09/30/17 08:00 53 16 91/53 (66) 99 Room Air 09/30/17 05:28 37.0 59 16 130/80 (97) 98 Room Air 09/30/17 04:00 Room Air 09/30/17 03:10 36.8 48 18 148/82 (104) 100 Nasal Cannula 2.0 09/30/17 03:10 2.0 Notes Mental Status: alert / awake / arousable, participated in evaluation Pt Amnestic to Procedure: Yes Nausea / Vomiting: adequately controlled Pain: adequately controlled Airway Patency, RR, SpO2: stable & adequate BP & HR: stable & adequate Hydration State: stable & adequate Anesthetic Complications: no major complications apparent Pt had previously complained of some soreness/scratching in right eye following surgery yesterday. Pt reports that her eye feels normal today and experiencing no current issues, appears normal on visual exam. Pt reports no other anesthetic related questions or concerns.
[2017-09-30] MEDS: FERROUS SULFATE 325 MG TAB PO SCH (16:22)
--- NOTE | 2017-09-30 17:06 | Progress Note ---
Subjective Date of Service: Sep 30, 2017. Subjective pt was seen in the company of family, she has no complaints of distress from the events of last evening. has good post operative pain control Problem List Medical Problems: (1) Ambulatory dysfunction Status: Acute (2) Anemia Status: Acute (3) Anemia Status: Acute (4) Atrial fibrillation with RVR Status: Acute (5) Atrial fibrillation with RVR Status: Acute (6) Bradycardia Status: Acute (7) Colitis Status: Acute (8) Constipation Status: Acute (9) Elevated INR Status: Acute (10) Elevated INR Status: Acute (11) Generalized weakness Status: Acute (12) Hematoma of left flank Status: Acute (13) Hypernatremia Status: Acute (14) Hypotension Status: Acute (15) Hypothermia Status: Acute (16) Hypothermia Status: Acute (17) Intractable low back pain Status: Acute (18) Left sided chest pain Status: Acute (19) Proctitis Status: Acute (20) UTI (urinary tract infection) Status: Acute (21) UTI (urinary tract infection) Status: Acute (22) Weakness Status: Acute (23) Weakness Status: Acute (24) Weakness Status: Acute (25) Weakness generalized Status: Acute Review of Systems Constitutional: + weakness, + fatigue, No fever, No chills Respiratory: No cough, No shortness of breath Cardiac: No chest pain, No edema Abdomen: No pain, No nausea, No vomiting, No diarrhea Musculoskeletal: + joint pain, + muscle pain, No swelling Female : No dysuria, No urinary frequency Neurologic: + weakness, No memory loss Objective Vital Signs Date Time Temp Pulse Resp B/P (MAP) Pulse Ox O2 Delivery O2 Flow Rate FiO2 09/30/17 05:28 37.0 59 16 130/80 (97) 98 Room Air 09/30/17 04:00 Room Air 09/30/17 03:10 36.8 48 18 148/82 (104) 100 Nasal Cannula 2.0 09/30/17 03:10 2.0 09/30/17 02:34 36 78/47 (57) 100 Nasal Cannula 2.0 38 09/30/17 00:00 Room Air 09/29/17 23:03 37.2 55 22 125/70 (88) 93 Room Air 09/29/17 18:52 37.0 57 16 125/66 (85) 96 Room Air 09/29/17 16:40 100 Room Air 09/29/17 15:27 36.6 51 16 118/65 (82) 100 Nasal Cannula 2.0 09/29/17 14:20 59 16 148/71 (96) 100 Nasal Cannula 2.0 09/29/17 13:20 54 16 139/84 (102) 100 Nasal Cannula 2.0 09/29/17 12:48 36.4 54 15 146/78 (100) 100 Nasal Cannula 2.0 09/29/17 12:20 100 Nasal Cannula 2.0 09/29/17 12:20 100 Nasal Cannula 2.0 09/29/17 12:20 36.4 55 14 126/75 (92) 100 Nasal Cannula 2.0 09/29/17 12:05 36.2 59 16 155/62 100 Nasal Cannula 4 09/29/17 11:55 36.2 57 16 155/62 100 Nasal Cannula 4 09/29/17 11:45 36.2 67 16 138/67 100 Nasal Cannula 4 09/29/17 11:35 36.2 67 16 156/59 100 Nasal Cannula 4 09/29/17 11:25 72 14 158/65 100 Nasal Cannula 4 09/29/17 11:15 75 14 149/84 100 Oxymask 10 09/29/17 11:05 76 14 158/72 100 Oxymask 10 09/29/17 10:58 37.1 77 14 134/78 100 Oxymask 10 Physical Exam General Appearance: WD/WN, + obese Eyes: PERRL, EOMI Respiratory/Chest: chest non-tender, lungs clear, normal breath sounds Cardiovascular: no murmur, + bradycardia Abdomen: normal bowel sounds, non tender, soft Extremities: no pedal edema, no calf tenderness Neurologic/Psychiatric: alert, oriented x 3 Laboratory Results Last 24 Hours Test 09/30/17 02:31 09/30/17 05:03 Bedside Glucose 151 mg/dl White Blood Count 9.52 K/uL Red Blood Count 3.31 M/uL Hemoglobin 10.0 g/dL Hematocrit 31.3 % Mean Corpuscular Volume 94.6 fL Mean Corpuscular Hemoglobin 30.2 pg Mean Corpuscular Hemoglobin Concent 31.9 g/dl Platelet Count 159 K/uL Mean Platelet Volume 11.2 fL Neutrophils (%) (Auto) 94.9 % Lymphocytes (%) (Auto) 1.3 % Monocytes (%) (Auto) 3.5 % Eosinophils (%) (Auto) 0.0 % Basophils (%) (Auto) 0.0 % Neutrophils # (Auto) 9.04 K/uL Lymphocytes # (Auto) 0.12 K/uL Monocytes # (Auto) 0.33 K/uL Eosinophils # (Auto) 0.00 K/uL Basophils # (Auto) 0.00 K/uL RDW Standard Deviation 57.8 fL RDW Coefficient of Variation 16.5 % Immature Granulocyte % (Auto) 0.3 % Immature Granulocyte # (Auto) 0.03 K/uL Sodium Level 139 mmol/L Potassium Level 4.2 mmol/L Chloride Level 109 mmol/L Carbon Dioxide Level 25 mmol/L Anion Gap 5.0 mmol/L Blood Urea Nitrogen 28 mg/dl Creatinine 1.09 mg/dl Est Creatinine Clear Calc Drug Dose 42.6 ml/min Estimated GFR () 55.1 Estimated GFR (Non- 47.6 BUN/Creatinine Ratio 25.9 Random Glucose 206 mg/dl Calcium Level 8.2 mg/dl Magnesium Level 1.9 mg/dl Assessment and Plan 82 F with surgery from spinal stenosis, had a code purple overnight, bradycardic and hypotensive Bradycardia and hypotensive, may have been vagal from pain, moved to ICU for monitoring, amiodarone held cardiology opinion. with history of afib pt was on pre procedure xarelto. her blood pressure is still low will also hold lisinopril Acute blood loss anemia, doubt that the events last eveing were from anemia, will follow and transfuse if low or symptomatic Spinal stenosis, status post L3-S1 decompression, was on Xarelto preop will restart after drain is pulled Post op Right eye pain which is improving likely corneal abrasion, treat with topical antibiotics and pain control Parkinson's disease. typically takes Sinemet and Eldepryl Hypertension. typically takes zestril which will be held .
[2017-09-30] MEDS: CLONAZEPAM 0.5 MG TAB PO SCH (20:40)
[2017-09-30] MEDS: CEROVITE ADV FORMULA TAB PO SCH (20:41)
[2017-09-30] MEDS: DONEPEZIL HCL 5 MG TAB PO SCH (20:41)
[2017-09-30] MEDS: GABAPENTIN 100 MG CAP PO SCH (20:41)
[2017-09-30] MEDS: DOCUSATE SODIUM/SENNA 50/8.6MG TAB PO SCH (20:42)
[2017-09-30] MEDS: CARBIDOPA/LEVODOPA 50/200MG EXT REL TAB PO SCH (20:44)
[2017-09-30] MEDS: ARTIFICIAL TEARS OP OINT 3.5 GM TUBE OPB SCH (21:00)
[2017-10-01] VITALS (7 sets, daily range): BP systolic 108–131; BP diastolic 56–77; PULSE 53–64; TEMP 36.4–36.7; O2SAT 95–100
[2017-10-01] MEDS: ERYTHROMYCIN OP OINT 5 MG/GM 3.5 GM TUBE OP SCH ×11 (02:01→22:03)
[2017-10-01] MEDS: POLYETHYLENE (MIRALAX) 17 GM PACK PO SCH ×3 (05:51→18:24)
[2017-10-01] MEDS: CARBIDOPA/LEVODOPA 25/100MG TAB PO SCH ×4 (05:56→18:23)
[2017-10-01] MEDS: INSULIN ASPART 100 UNITS/ML 3 ML PEN SC SCH ×4 (07:00→20:54)
--- NOTE | 2017-10-01 08:37 | Progress Note ---
Progress Note Date of Service Oct 01, 2017. Progress Note Patient states her back pain is controlled. She denies any leg pain. Vital signs are stable. On exam she is good strength testing. Assessment status post lumbar decompression fusion replant this time we will continue physical therapy as tolerated. Hopefully transition to the orthopedic floor when medically stable. Hopefully transition to [facility] this weekend.
[2017-10-01] MEDS: MEMANTINE 5 MG TAB PO SCH ×2 (08:47→20:59)
[2017-10-01] MEDS: RANITIDINE HCL 150 MG TAB PO SCH ×2 (08:47→20:59)
[2017-10-01] MEDS: SELEGILINE HCL 5 MG CAP PO SCH ×2 (08:56→20:58)
--- NOTE | 2017-10-01 09:13 | Cardiology Follow-Up ---
Subjective Date of Service: Oct 01, 2017. Pt evaluation today including: conversation w/ patient, physical exam, chart review, lab review, review of studies, review of inpatient medication list History of Present Illness The patient was sleeping at the time of the interview this morning. However, upon awakening she had no complaints. She was slightly disoriented. However, with directed questioning she seemed answer appropriately. She denies any back pain. She denies any breathing trouble. She is not aware of any palpitations. She reported a poor appetite. Social History Smoking Status: Never Smoker History of Alcohol Use: No Review of Systems Respiratory: No cough, No shortness of breath Cardiac: No chest pain, No edema Additional symptoms were not obtainable due to the patient's baseline dementia and confusion Objective Vital Signs Past 12 Hours Date Time Temp Pulse Resp B/P (MAP) Pulse Ox O2 Delivery O2 Flow Rate FiO2 10/01/17 07:59 36.4 55 16 128/73 (91) 97 Room Air 10/01/17 04:05 36.5 60 22 131/72 (91) 95 Room Air 10/01/17 04:00 Room Air 09/30/17 23:59 Room Air 09/30/17 23:15 37.0 61 20 155/81 (105) 97 Room Air Last Recorded Weight-Kilograms: 89.500 Physical Exam Do not affect appeared appropriate. She was oriented to person only. HEENT: Sclerae are anicteric. Pupils are equal and reactive to light and accommodation. Extraocular movements were intact. Neuro: Cranial nerves intact Neck: Examination of the submandibular region did not reveal any significant lymphadenopathy. Carotids are palpable bilaterally and free of bruits on auscultation. There was no evidence of jugular venous distention. The thyroid was not enlarged. Lungs: Lungs are clear to auscultation bilaterally. There are no rales wheezes or rhonchi. She has normal respiratory effort without use of accessory muscles. There is normal pulmonary excursion. Cardiac: The rhythm was regular. S1 and S2 were normal. Soft holosystolic murmur. The PMI was not markedly displaced on palpation. Abdomen: The abdomen was soft and nontender. Extremities: Patient has bilateral radial pulses that are equal in intensity. There is no evidence cyanosis or clubbing. Skin: There are no rashes noted on examination today. Data Laboratory Results: Last 24 Hours Test 09/30/17 09:53 09/30/17 11:30 09/30/17 16:09 09/30/17 20:22 Bedside Glucose 150 mg/dl 156 mg/dl 121 mg/dl 122 mg/dl Test 10/01/17 06:18 10/01/17 08:53 Bedside Glucose 79 mg/dl 79 mg/dl Telemetry reviewed: Sinus rhythm and sinus bradycardia Assessment and Plan 1. Bradycardia: This appears to be improved. More recent heart rates have been in the normal range. At this point would seem reasonable to consider re- initiation of her amiodarone. I would certainly consider re-initiation at the time of discharge if not today. 2. Atrial fibrillation: This is paroxysmal. No atrial fibrillation since admission. Reinitiate amiodarone. Reinitiate Xarelto at the discretion of the surgeon, likely once drain is removed. 3. Valvular heart disease: Patient has an element of mitral regurgitation. No current symptoms. No need for evaluation currently. 4. Diastolic heart failure: Patient has a history of diastolic heart failure but currently appears to be well compensated.
--- NOTE | 2017-10-01 10:47 | Pharmacy Progress Note ---
Pharmacy Glycemic Short Note 2 Date of Service Oct 01, 2017. OUTPATIENT ANTIDIABETIC REGIMEN: * n/a * A1c 5.1% on 03/24/17 ASSESSMENT: * Ms. Banks is POD 2 s/p lumbar decompression/fusion and received 54 units of insulin yesterday with BSGs ranging from 79-156 mg/dL in the past 24 hours * Postop Decadron doses were d/c'd yesterday - effects may last up to 24 hours * Fasting BSG 79 - no further basal insulin at this time * Will loosen CF/CR to stress level of 1 and patient's weight. If BSGs remain below goal, will d/c the insulin coverage altogether PLAN FOR INPATIENT GLYCEMIC CONTROL: * No further basal insulin * Continue Novolog ACHS * Goal 120-160 * LOOSEN CF to 45 * LOOSEN CR to 15
--- NOTE | 2017-10-01 13:14 | Progress Note ---
Subjective Date of Service: Oct 01, 2017. Subjective pt has no complaints, was working with PT on my arrival and moving slowly but standing and helping transfer Problem List Medical Problems: (1) Ambulatory dysfunction Status: Acute (2) Anemia Status: Acute (3) Anemia Status: Acute (4) Atrial fibrillation with RVR Status: Acute (5) Atrial fibrillation with RVR Status: Acute (6) Bradycardia Status: Acute (7) Colitis Status: Acute (8) Constipation Status: Acute (9) Elevated INR Status: Acute (10) Elevated INR Status: Acute (11) Generalized weakness Status: Acute (12) Hematoma of left flank Status: Acute (13) Hypernatremia Status: Acute (14) Hypotension Status: Acute (15) Hypothermia Status: Acute (16) Hypothermia Status: Acute (17) Intractable low back pain Status: Acute (18) Left sided chest pain Status: Acute (19) Proctitis Status: Acute (20) UTI (urinary tract infection) Status: Acute (21) UTI (urinary tract infection) Status: Acute (22) Weakness Status: Acute (23) Weakness Status: Acute (24) Weakness Status: Acute (25) Weakness generalized Status: Acute Review of Systems Constitutional: + weakness, + fatigue, No fever, No chills Respiratory: No cough, No shortness of breath Cardiac: No chest pain, No edema Abdomen: No pain, No vomiting, No diarrhea Musculoskeletal: + joint pain, + muscle pain Neurologic: + weakness, + balance problems, No memory loss, No paralysis Objective Vital Signs Date Time Temp Pulse Resp B/P (MAP) Pulse Ox O2 Delivery O2 Flow Rate FiO2 10/01/17 11:36 36.4 64 20 109/70 (83) 100 Room Air 10/01/17 08:00 97 Nasal Cannula 2.0 10/01/17 07:59 36.4 55 16 128/73 (91) 97 Room Air 10/01/17 04:05 36.5 60 22 131/72 (91) 95 Room Air 10/01/17 04:00 Room Air 09/30/17 23:59 Room Air 09/30/17 23:15 37.0 61 20 155/81 (105) 97 Room Air 09/30/17 20:00 97 Room Air 09/30/17 19:00 36.5 64 18 131/77 (95) 97 Room Air 09/30/17 16:00 98 Room Air 09/30/17 15:31 36.4 55 20 115/68 (84) 98 Room Air 09/30/17 14:42 66 97 Physical Exam General Appearance: WD/WN, + mild distress Eyes: PERRL, EOMI Respiratory/Chest: chest non-tender, lungs clear, normal breath sounds Cardiovascular: regular rate, rhythm, no murmur Abdomen: normal bowel sounds, non tender, soft Extremities: no pedal edema, no calf tenderness Laboratory Results Last 24 Hours Test 09/30/17 16:09 09/30/17 20:22 10/01/17 06:18 10/01/17 08:53 Bedside Glucose 121 mg/dl 122 mg/dl 79 mg/dl 79 mg/dl Test 10/01/17 11:35 Bedside Glucose 94 mg/dl Assessment and Plan 82 F with surgery from spinal stenosis, had a code purple overnight 09/28, bradycardic and hypotensive, now resolved and restarted home meds Bradycardia and hypotensive, may have been vagal from pain, moved to ICU for monitoring, amiodarone will be restarted with cardiology oversight, with history of afib pt was on pre procedure xarelto. Acute blood loss anemia, doubt that the events last evening were from anemia, currently not symptomatic Spinal stenosis, status post L3-S1 decompression, was on Xarelto preop will restart after drain is pulled, pt wishes to see Dr Webster Post op Right eye pain which continues to improve, likely secondary to corneal abrasion, treat with topical antibiotics and pain control Parkinson's disease. typically takes Sinemet and Eldepryl, meds reviewed by neurology Hypertension. typically takes zestril which continues to be held will be restarted as outpt .
[2017-10-01] MEDS: FERROUS SULFATE 325 MG TAB PO SCH (18:24)
[2017-10-01] MEDS: AMIODARONE 200 MG TAB PO SCH (20:58)
[2017-10-01] MEDS: CEROVITE ADV FORMULA TAB PO SCH (20:59)
[2017-10-01] MEDS: CARBIDOPA/LEVODOPA 50/200MG EXT REL TAB PO SCH (20:59)
[2017-10-01] MEDS: DOCUSATE SODIUM/SENNA 50/8.6MG TAB PO SCH (20:59)
[2017-10-01] MEDS: DONEPEZIL HCL 5 MG TAB PO SCH (20:59)
[2017-10-01] MEDS: GABAPENTIN 100 MG CAP PO SCH (20:59)
[2017-10-01] MEDS: CLONAZEPAM 0.5 MG TAB PO SCH (21:04)
[2017-10-01] MEDS: ARTIFICIAL TEARS OP OINT 3.5 GM TUBE OPB SCH (21:54)
[2017-10-02] MEDS: ERYTHROMYCIN OP OINT 5 MG/GM 3.5 GM TUBE OP SCH ×13 (02:06→23:58)
[2017-10-02] MEDS: CARBIDOPA/LEVODOPA 25/100MG TAB PO SCH ×4 (05:41→18:16)
[2017-10-02] MEDS: POLYETHYLENE (MIRALAX) 17 GM PACK PO SCH ×5 (05:44→23:59)
[2017-10-02 06:55] VITALS: BP 130/71; PULSE 61; TEMP 36.9; O2SAT 96
[2017-10-02] MEDS: INSULIN ASPART 100 UNITS/ML 3 ML PEN SC SCH ×2 (08:00→12:00)
[2017-10-02] MEDS: RANITIDINE HCL 150 MG TAB PO SCH ×2 (08:37→20:38)
[2017-10-02] MEDS: MEMANTINE 5 MG TAB PO SCH ×2 (08:38→20:39)
[2017-10-02] MEDS: SELEGILINE HCL 5 MG CAP PO SCH ×2 (09:09→20:37)
[2017-10-02] MEDS ORDERED: RXC5 PO (10:29)
--- NOTE | 2017-10-02 10:30 | Discharge Instructions ---
Discharge Instructions Date of Service Oct 02, 2017. Admission Reason for Admission: Lumbar Spinal Stenosis Discharge Discharge Diagnosis / Problem: lumbar spinal stenosis Discharge Goals Goal(s): Improve function Activity Recommendations Activity Limitations: per Instructions/Follow-up section . Instructions / Follow-Up Instructions / Follow-Up ACTIVITY RECOMMENDATIONS: SELF CARE INSTRUCTIONS AFTER THORACIC/LUMBAR FUSIONS 1. You may walk to your tolerance. It is good exercise for your legs and back. Expect some back and intermittent leg aches and pains. 2. You may perform "counter-top" level activities (make a sandwich, geovanni with a project, etc.). 3. No bending or lifting of more than 10 pounds or back twisting of any nature (roll like a log when turning in bed). 4. You may ride in a car for 20-30 minutes at a time. No driving until after your first visit with your doctor. 5. Frequent changes of position and restricting sitting to 30 minutes at a time will help limit the amount of back spasms and stiffness you may experience. 6. You may discontinue the use of ambulatory aids (cane, crutches, etc.) once your strength and confidence allow. 7. You may painter mirror the shower and let water strike your incision when you arrive home at least once daily. Do not take a tub bath, sit in a hot tub or go into a swimming pool until after your first recheck in the office. SPECIAL CARE INSTRUCTIONS: VERY IMPORTANT TO READ AND REVIEW A. Your surgical incision has been closed with a cosmetic suture under the skin that will dissolve in about 6 weeks. In 14 days, you can use a pair of clean scissors and cut the suture that is left outside of the skin at the ends of your incision. 1. The small skin tapes can be removed 7 days after surgery if they have not fallen off by that point. 2. You may keep the wound open to air as much as possible to promote healing after post-op day number 5 unless told otherwise by your doctor. 3. If you think the wound looks like it is becoming infected (redness or worsening drainage) and/or you are experiencing fever, chill or worsening back pain and muscle spasms, contact the office so that we may evaluate you as soon as possible. B. Complications are uncommon, but please contact us if you have any signs or symptoms of: 1. wound infection (fever higher than 102.5 degrees F, redness, separation of wound, drainage, or increasing pain from the incision) 2. blood clots in legs (pain, swelling, redness and warmth in legs) 3. urinary tract infection (fever higher than 102.5 degrees F, burning upon urination or increased frequency of urination) 4. nerve problems (inability to walk on your toes or heels, numbness, loss of bowel or bladder control) 5. any other symptoms that concern you C. Please call the office at if you have any concerns or questions about your operation or recovery. D. No smoking! Smoking drastically decreases the chance of a solid fusion. E. Do not take any anti-inflammatory medications (Indocin, Advil, Motrin, Aspirin, Naprosyn, etc.) as these may inhibit the chance of a solid fusion. Tylenol is okay to take for pain. MANAGING PAIN AFTER SPINAL SURGERY 1. Narcotic medication is intended for short-term use and will be provided for surgical pain. Surgical pain usually lasts for a period of 4-6 weeks. Narcotic medication includes Percocet, Vicodin, Darvocet, Tylenol #3 or Lortab. 2. Longer-term pain is more appropriately treated with non-narcotic medication such as Tylenol ES. 3. Muscle spasm is not appropriately treated with narcotics. Muscle relaxers such as Soma, Flexeril or Skelaxin can be used along with Tylenol ES. 4. Remember that we all live with some "aches and pains". This is not unusual or uncommon after an injury or as we get older. a. Back pain is expected and may include muscle spasms for 4 to 6 weeks after surgery. The pain should gradually improve. If the pain worsens for no apparent reason, please contact the office. b. Intermittent leg pain may also be experienced and should not be concerned about unless it worsens for no apparent reason. If so, please contact the office. 5. We will provide appropriate medication within the normal guidelines of their prescribed use. We will also be very cautious and aware of potential abuse and extended duration of patients' medication needs. a. Pain medications are for your comfort and to assist with sleep and rest so that the tissue can heal. They are not provided in order to return to normal activity and should not be used through the day. To do so or worsening pain at night can result from ongoing tissue damage and development of tolerance to the prescribed medicine. 6. Please allow 2-3 days to process refills. Prescriptions will not be mailed but must be picked up at the office. FOLLOW UP VISIT: Keep your scheduled follow-up appointment. Any questions, please call the office at . Current Hospital Diet Patient's current hospital diet: Regular Diet Discharge Diet Recommended Diet: Regular Diet Procedures Procedures Performed: #1 lumbar decompression medial facetectomies foraminotomies L3 4 L4 5 L5-S1. #2 posterior spinal fusion L3 4 L4 5 L5-S1. #3 placement posterior segmental instrumentation L3 to S1. #4 interbody fusion L4 5. #5 placement peek cage 12 x 22 mm at L4 5. #6 placement of locally harvested morcellized autograft in the posterior lateral gutters. #7 placement infuse collagen sponge commode Master graft in the posterior lateral gutters and ostial amp in the interbody space. Pending Studies Studies pending at discharge: no Medical Emergencies . Who to Call and When: Medical Emergencies: If at any time you feel your situation is an emergency, please call 911 immediately. . Non-Emergent Contact Non-Emergency issues call your: Primary Care Provider . "Provider Documentation" section prepared by Ted Webster. . VTE Core Measure Inpt VTE Proph given/why not?: Phan Schroeder, SCD's
--- NOTE | 2017-10-02 14:32 | Progress Note ---
Progress Note Date of Service Oct 02, 2017. Progress Note Patient is alert today. Her back and leg pain is controlled. Back pain controlled. Vital signs are stable. MELISSA drain decreasing appropriate. On exam she is [place] strength testing lower extremity's. Assessment status post multilevel lumbar decompression fusion. Planned this time we'll continue to advance physical therapy as tolerated. Plan for discharge to [facility] hopefully Thursday.
[2017-10-02 15:12] VITALS: BP 126/75; PULSE 61; TEMP 36.4; O2SAT 98
--- NOTE | 2017-10-02 15:33 | Progress Note ---
Subjective Date of Service: Oct 02, 2017. Subjective pt is doing well no acute issues and no recurrence of symptoms that created code purple being called Problem List Medical Problems: (1) Ambulatory dysfunction Status: Acute (2) Anemia Status: Acute (3) Anemia Status: Acute (4) Atrial fibrillation with RVR Status: Acute (5) Atrial fibrillation with RVR Status: Acute (6) Bradycardia Status: Acute (7) Colitis Status: Acute (8) Constipation Status: Acute (9) Elevated INR Status: Acute (10) Elevated INR Status: Acute (11) Generalized weakness Status: Acute (12) Hematoma of left flank Status: Acute (13) Hypernatremia Status: Acute (14) Hypotension Status: Acute (15) Hypothermia Status: Acute (16) Hypothermia Status: Acute (17) Intractable low back pain Status: Acute (18) Left sided chest pain Status: Acute (19) Proctitis Status: Acute (20) UTI (urinary tract infection) Status: Acute (21) UTI (urinary tract infection) Status: Acute (22) Weakness Status: Acute (23) Weakness Status: Acute (24) Weakness Status: Acute (25) Weakness generalized Status: Acute Review of Systems Constitutional: + weakness, + fatigue, No fever, No chills Respiratory: No cough, No shortness of breath Cardiac: No chest pain, No edema Abdomen: No pain, No nausea, No vomiting, No diarrhea Neurologic: No memory loss, No paralysis Psychiatric: No depression symptoms, No anhedonism Objective Vital Signs Date Time Temp Pulse Resp B/P (MAP) Pulse Ox O2 Delivery O2 Flow Rate FiO2 10/02/17 15:12 36.4 61 18 126/75 (92) 98 Room Air 10/02/17 08:00 Room Air 10/02/17 06:55 36.9 61 19 130/71 (90) 96 Room Air 10/01/17 23:58 Room Air 10/01/17 22:44 36.6 61 14 131/77 (95) 98 Room Air 10/01/17 19:56 Room Air 10/01/17 15:30 Room Air Physical Exam General Appearance: WD/WN, + mild distress Eyes: normal inspection, PERRL Respiratory/Chest: chest non-tender, lungs clear Cardiovascular: regular rate, rhythm, no murmur Abdomen: normal bowel sounds, non tender, soft Neurologic/Psychiatric: alert, oriented x 3 Laboratory Results Last 24 Hours Test 12/7/17 17:38 10/01/17 20:37 10/02/17 08:26 Bedside Glucose 81 mg/dl 120 mg/dl 113 mg/dl Assessment and Plan 82 F with surgery from spinal stenosis, had a code purple overnight 09/28, bradycardic and hypotensive, now resolved and restarted home meds Bradycardia and hypotensive, resolved, may have been vagal from pain, with history of afib pt was on pre procedure xarelto. Cardiology did see in consult and recommends restart of amiodarone which was done 10/01 Acute blood loss anemia, continues to be asymptomatic Spinal stenosis, status post L3-S1 decompression, was on Xarelto preop will restart after drain is pulled, Dr Webster Post op Right eye pain which continues to improve, likely secondary to corneal abrasion, treat with topical antibiotics and pain control Parkinson's disease. near her baseline, will need rehab typically takes Sinemet and Eldepryl, meds reviewed by neurology Hypertension. typically takes zestril which continues to be held bp is tolerable , will be restarted as outpt .
[2017-10-02] MEDS: FERROUS SULFATE 325 MG TAB PO SCH (15:57)
[2017-10-02] MEDS ORDERED: NURSING VERBAL MED ORDER ONE (17:15)
[2017-10-02] MEDS: DONEPEZIL HCL 5 MG TAB PO SCH (20:36)
[2017-10-02] MEDS: AMIODARONE 200 MG TAB PO SCH (20:37)
[2017-10-02] MEDS: CARBIDOPA/LEVODOPA 50/200MG EXT REL TAB PO SCH (20:38)
[2017-10-02] MEDS: GABAPENTIN 100 MG CAP PO SCH (20:38)
[2017-10-02] MEDS: CEROVITE ADV FORMULA TAB PO SCH (20:38)
[2017-10-02] MEDS: DOCUSATE SODIUM/SENNA 50/8.6MG TAB PO SCH (20:39)
[2017-10-02] MEDS: CLONAZEPAM 0.5 MG TAB PO SCH (20:44)
[2017-10-02] MEDS: ARTIFICIAL TEARS OP OINT 3.5 GM TUBE OPB SCH (21:52)
[2017-10-02 23:25] VITALS: BP 94/56; PULSE 68; TEMP 36.6; O2SAT 97
[2017-10-03] MEDS ORDERED: NURSING DECISION MEDICATION ORDER SCH (00:15)
[2017-10-03] MEDS ORDERED: NURSING VERBAL MED ORDER ONE (01:30)
[2017-10-03] MEDS: ERYTHROMYCIN OP OINT 5 MG/GM 3.5 GM TUBE OP SCH ×4 (01:32→12:00)
[2017-10-03] MEDS: CARBIDOPA/LEVODOPA 25/100MG TAB PO SCH ×2 (05:42→10:26)
[2017-10-03 07:49] VITALS: BP 114/71; PULSE 67; TEMP 36.8; O2SAT 99
[2017-10-03] MEDS: RANITIDINE HCL 150 MG TAB PO SCH (08:07)
[2017-10-03] MEDS: SELEGILINE HCL 5 MG CAP PO SCH (08:07)
[2017-10-03] MEDS: MEMANTINE 5 MG TAB PO SCH (08:08)
--- NOTE | 2017-10-03 10:46 | Discharge Summary ---
Orthopedic Discharge Summary Admission Date/Reason Sep 29, 2017 at 07:30 Lumbar Spinal Stenosis. Discharge Date/Disposition Oct 03, 2017 Rehab Diagnosis Principal Diagnosis: Lumbar spinal stenosis Admission Physical Exam As per Admitting History & Physical. Hospital Course Patient underwent lumbar decompression fusion tolerated this well as taken to the orthopedic 4 postop we. Postoperative day #1 she did require transfer to the telemetry unit. She had an episode of bradycardia. This was temporary and she progressed nicely to the orthopedic floor. She tolerated physical therapy. She notes marked improvement of her lower extremity pain and symptoms. Subsequently she was discharged to [facility]. Discharge orders and instructions can be found the chart for further review. Discharge Instructions Please refer to the electronic Patient Visit Report (Discharge Instructions) for additional information.
[2017-10-03 11:22] VITALS: BP 114/71; PULSE 67; TEMP 36.8; O2SAT 99
--- NOTE | 2017-10-03 11:56 | Progress Note ---
Subjective Date of Service: Oct 03, 2017. Subjective pt has no complaints and will be dischared 10/03 Problem List Medical Problems: (1) Ambulatory dysfunction Status: Acute (2) Anemia Status: Acute (3) Anemia Status: Acute (4) Atrial fibrillation with RVR Status: Acute (5) Atrial fibrillation with RVR Status: Acute (6) Bradycardia Status: Acute (7) Colitis Status: Acute (8) Constipation Status: Acute (9) Elevated INR Status: Acute (10) Elevated INR Status: Acute (11) Generalized weakness Status: Acute (12) Hematoma of left flank Status: Acute (13) Hypernatremia Status: Acute (14) Hypotension Status: Acute (15) Hypothermia Status: Acute (16) Hypothermia Status: Acute (17) Intractable low back pain Status: Acute (18) Left sided chest pain Status: Acute (19) Proctitis Status: Acute (20) UTI (urinary tract infection) Status: Acute (21) UTI (urinary tract infection) Status: Acute (22) Weakness Status: Acute (23) Weakness Status: Acute (24) Weakness Status: Acute (25) Weakness generalized Status: Acute Review of Systems Constitutional: + weakness, No fever, No chills Respiratory: No cough, No shortness of breath Abdomen: No pain, No nausea, No vomiting Objective Vital Signs Date Time Temp Pulse Resp B/P (MAP) Pulse Ox O2 Delivery O2 Flow Rate FiO2 10/03/17 11:22 36.8 67 18 99 Room Air 10/03/17 11:11 Room Air 10/03/17 07:49 36.8 67 18 114/71 (85) 99 Room Air 10/02/17 23:25 36.6 68 16 94/56 (69) 97 Room Air 10/02/17 19:30 Room Air 10/02/17 15:12 36.4 61 18 126/75 (92) 98 Room Air Physical Exam General Appearance: WD/WN, no apparent distress Neurologic/Psychiatric: alert, oriented x 3 Skin: normal color, warm/dry Assessment and Plan 82 F with surgery from spinal stenosis, had a code purple overnight 09/28, bradycardic and hypotensive, now resolved and restarted home meds Bradycardia and hypotensive, resolved, may have been vagal from pain, with history of afib pt was on pre procedure xarelto. Cardiology did see in consult and recommends restart of amiodarone which was done 10/01, no issues since Acute blood loss anemia, continues to be asymptomatic Spinal stenosis, status post L3-S1 decompression, was on Xarelto preop will restart after drain is pulled, Dr Webster Post op Right eye pain which continues to improve, likely secondary to corneal abrasion, treat with topical antibiotics and pain control Parkinson's disease. near her baseline, will need rehab typically takes Sinemet and Eldepryl, meds reviewed by neurology Hypertension. typically takes zestril which continues to be held bp is tolerable , will be restarted as outpt .
== END 2017-10-03 13:15 | DRG 455 ==
LOC: C.ACU 04:47 → C.3E 07:30 → ENRESERV 11:29 → C.2T 09-30 03:00 → C.MSICU 09-30 03:55 → C.2T 09-30 11:16 → ENRESERV 10-01 11:52 → C.MSW 10-01 14:35
PROVIDERS: ADMIT Orthopaedic Surgery Orthopaedic Surgery of the Spine; ATTEND Orthopaedic Surgery Orthopaedic Surgery of the Spine
PROC: 0SG00AJ Fusion of Lumbar Vertebral Joint with Interbody Fusion Device, Posterior Approach, Anterior Column, Open Approach (ICD-10-PCS; principal; 2017-09-29 07:45)
PROC: 0SG3071 Fusion of Lumbosacral Joint with Autologous Tissue Substitute, Posterior Approach, Posterior Column, Open Approach (ICD-10-PCS; principal; 2017-09-29 07:45)
PROC: 0SG1071 Fusion of 2 or more Lumbar Vertebral Joints with Autologous Tissue Substitute, Posterior Approach, Posterior Column, Open Approach (ICD-10-PCS; principal; 2017-09-29 07:45)
PROC: 0ST20ZZ Resection of Lumbar Vertebral Disc, Open Approach (ICD-10-PCS; principal; 2017-09-29 07:45)
DX: M48.061 Spinal stenosis, lumbar region without neurogenic claudication (principal); M43.17 Spondylolisthesis, lumbosacral region; I48.91 Unspecified atrial fibrillation; E78.5 Hyperlipidemia, unspecified; I10 Essential (primary) hypertension; G62.9 Polyneuropathy, unspecified; G20 Parkinson's disease; I95.9 Hypotension, unspecified; R00.1 Bradycardia, unspecified; S05.01XA Injury of conjunctiva and corneal abrasion without foreign body, right eye, initial encounter; X58.XXXA Exposure to other specified factors, initial encounter

== ENCOUNTER → 2017-11-03 | Outpatient (CLI) | payer OTHER ==
[~2017-11-03] MED LIST changes: +RXC5 PO
[2017-11-03 12:44] LABS: HEMOGLOBIN 10.2 g/dL (12.0-16.0); MEAN CELL VOLUME 93.5 fL (80-100); MEAN CORPUSCULAR HEMOGLOBIN 28.9 pg (25-34); MEAN CORPUSCULAR HGB CONC 30.9 g/dl (32-36); MEAN PLATELET VOLUME 10.5 fL (7.4-10.4); PLATELET COUNT 245 K/uL (130-400); RED CELL DISTRIBUTION WIDTH CV 15.8 % (11.5-14.5); RED CELL DISTRIBUTION WIDTH SD 53.4 fL (36.4-46.3); WHITE BLOOD COUNT 5.98 K/uL (4.8-10.8)
[2017-11-03 13:25] LABS: BLOOD UREA NITROGEN 26 mg/dl (7-18); CALCIUM 9.1 mg/dl (8.5-10.1); CARBON DIOXIDE 28 mmol/L (21-32); CREATININE 1.25 mg/dl (0.60-1.20); GLUCOSE 100 mg/dl (70-99); POTASSIUM 4.2 mmol/L (3.5-5.1); SODIUM 138 mmol/L (136-145)
== END | disposition home or self-care (01) ==
LOC: C.LABPBG 11:14
PROVIDERS: ATTEND Family Medicine
DX: R19.5 Other fecal abnormalities (principal); G20 Parkinson's disease; I87.2 Venous insufficiency (chronic) (peripheral); R00.1 Bradycardia, unspecified

== ENCOUNTER 2017-12-14 19:57 | Emergency (ER) | payer OTHER ==
[~2017-12-14 19:57] MED LIST changes: +RANI150T85 PO; -ZNTT/150 PO
[2017-12-14 20:44] VITALS: TEMP 37
--- NOTE | 2017-12-14 21:47 | DIAGNOSTIC IMAGING REPORT ---
HEAD WITHOUT CONTRAST (CT) CT DOSE: 1083.91 mGy.cm HISTORY: Trauma fall, head injury, on xarelto TECHNIQUE: Multiaxial CT images of the head were performed without the use of intravenous contrast. A dose lowering technique was utilized adhering to the principles of ALARA. Comparison: 08/26/2017 Findings: The paranasal sinuses and mastoid air cells are clear. The calvarium and skull base are intact. The ventricles and sulci are within normal limits. There is no mass, hematoma, midline shift, or acute infarct. Age-related chronic small vessel change and atrophy Impression: No acute intracranial abnormality. Age-related chronic small vessel change and atrophy. The above report was generated using voice recognition software. It may contain grammatical, syntax or spelling errors. Electronically signed by: Aquilino Galvez M.D. 12/14/2017 9:46 PM Dictated Date/Time: 12/14/2017 9:44 PM
--- NOTE | 2017-12-14 21:52 | DIAGNOSTIC IMAGING REPORT ---
CERVICAL SPINE W/O CT DOSE: HISTORY: Trauma fall, head injury, on xarelto TECHNIQUE: Multiaxial CT images of the cervical spine were performed and reformatted in the sagittal and coronal plane without the use of contrast. A dose lowering technique was utilized adhering to the principles of ALARA. COMPARISON: None. FINDINGS: No fractures. No subluxation. Prevertebral soft tissues and the C1-C2 interval are intact. No pneumothorax. IMPRESSION: No fractures within the cervical spine. Extensive degenerative change The above report was generated using voice recognition software. It may contain grammatical, syntax or spelling errors. Electronically signed by: Aquilino Galvez M.D. 12/14/2017 9:50 PM Dictated Date/Time: 12/14/2017 9:46 PM
--- NOTE | 2017-12-14 22:19 | EMERGENCY ROOM VISIT NOTE ---
History First contact with patient: 20:54 Chief Complaint: FALL Stated Complaint: FALL,HIT HEAD History of Present Illness The patient is an 82 year old female who presents to the Emergency Room with complaints of a head injury. The patient has Parkinson's disease and is very unsteady on her feet. She fell approximately 3 hours prior to arrival, striking her head. She states that the fall was due to her tripping and was not associated with any lightheadedness. She complains of mild pain in her head at this time, rated 4/10. She denies loss of consciousness, vomiting, numbness/weakness or confusion. The patient takes Xarelto for atrial fibrillation. She denies any neck pain or any other injuries. Review of Systems A complete 10 point review of systems was reviewed with the patient with pertinent positives and negatives as per history of present illness. All else were negative. Past Medical/Surgical History Medical Problems: (1) Atrial fibrillation (2) C. difficile colitis (3) Chronic lower back pain (4) Hyperlipidemia (5) Hyperosmolality and hypernatremia (6) Hypertension (7) Lumbar stenosis with neurogenic claudication (8) Neuropathy (9) Parkinsons Family History No pertinent family history Social History Smoking Status: Never Smoker Alcohol Use: none Drug Use: none Marital Status: Housing Status: lives with significant other Occupation Status: retired Current/Historical Medications Scheduled Amiodarone Hcl (Cordarone), 200 MG PO QPM Artificial Tear Ointment (Eye Lubricant), 1 APPLN OPB HS Calcium Carbonate-Vitamin D (Calcium + D3 600-200 mg-Unit), 1 TAB PO QPM Carbidopa-Levodopa (Sinemet Cr 50-200 mg), 1 TAB PO HS Carbidopa/Levodopa (Sinemet 25MG/100MG), 3 TABS PO QID Clonazepam (Klonopin), 0.25 MG PO HS Docusate Sodium (Docusate Sodium), 100 MG PO Q2D OR PRN Donepezil HCl (Donepezil HCl), 10 MG PO HS Ferrous Sulfate (Ferrous Sulfate), 325 MG PO UD Gabapentin (Neurontin), 100 MG PO HS Lisinopril (Prinivil), 5 MG PO QAM Memantine (Namenda), 5 MG PO BID Ocuvite Preservision (Ocuvite Preservision), 1 TAB PO HS Ranitidine (Zantac), 150 MG PO BID Rivaroxaban (Xarelto), 15 MG PO HS Selegiline HCl (Selegiline HCl), 5 MG PO BID Scheduled PRN Acetaminophen/Codeine (Tylenol W/Codeine #3), 1 TAB PO Q8 PRN for Pain Carbidopa-Levodopa (Carbidopa/Levodopa Odt), 25-250 MG PO TID PRN for PARKINSON' S CONTROL Furosemide (Lasix), 40 MG PO DAILY PRN for Gabapentin (Neurontin), 300 MG PO UD PRN for Pain Hydrocodone/Acetaminophen 5MG/325MG ([place] 5MG/325MG), 1 TABLET PO Q6 PRN for Pain Levalbuterol Tartrate (Levalbuterol Tartrate Hfa), 2 PUFFS INH DAILY PRN for SOB /Wheezing Oxycodone HCl (Oxycodone HCl), 5-10 MG PO Q4H PRN for Moderate - severe pain Polyethylene Glycol 3350 (Miralax), 17 GM PO UD PRN for PRN Physical Exam Vital Signs Date Time Temp Pulse Resp B/P (MAP) Pulse Ox O2 Delivery O2 Flow Rate FiO2 12/14/17 22:20 66 18 130/70 98 12/14/17 20:44 37.0 66 18 156/81 98 Room Air Physical Exam VITALS: Vitals are noted on the nurse's note and reviewed by myself. Vital signs stable. GENERAL: This is an 82-year-old female, in no acute distress, nondiaphoretic, well-developed well-nourished. SKIN: There is a hematoma to the left posterior scalp. No lacerations. HEAD: Hematoma as described above. Otherwise normocephalic atraumatic. EARS: External auditory canals clear, tympanic membranes pearly stephens without erythema or effusion bilaterally. No hemotympanum. EYES: Pupils equal round and reactive to light and accommodation. Extraocular movements intact. NECK: Supple without nuchal rigidity. Cervical spine is nontender. HEART: Regular rate and rhythm without murmurs gallops or rubs. LUNGS: Clear to auscultation bilaterally without wheezes, rales or rhonchi. MUSCULOSKELETAL: Strength 5/5 throughout. NEURO: Patient was alert and oriented to person place and time. Medical Decision & Procedures ER Provider Diagnostic Interpretation: HEAD WITHOUT CONTRAST (CT) Findings: The paranasal sinuses and mastoid air cells are clear. The calvarium and skull base are intact. The ventricles and sulci are within normal limits. There is no mass, hematoma, midline shift, or acute infarct. Age-related chronic small vessel change and atrophy Impression: No acute intracranial abnormality. Age-related chronic small vessel change and atrophy. CERVICAL SPINE W/O FINDINGS: No fractures. No subluxation. Prevertebral soft tissues and the C1-C2 interval are intact. No pneumothorax. IMPRESSION: No fractures within the cervical spine. Extensive degenerative change Medical Decision Differential diagnosis includes concussion, skull fracture, epidural hematoma, subdural hematoma, subarachnoid hemorrhage, among others. The patient was evaluated as above. She presents for evaluation of a head injury. The patient does take anticoagulation. CT of the head and cervical spine were performed and read by radiology with no acute findings. Patient was informed of these findings. The family was instructed to observe her closely for any worsening or new/concerning symptoms. She will follow-up with her primary care provider as needed. The patient and family members verbalized their understanding of my assessment and treatment plan and she was discharged home in good condition. Head Trauma GCS Score: 15 Medication Reconcilliation Current Medication List: was personally reviewed by [place] Blood Pressure Screening Patient's blood pressure: Normal blood pressure Impression Primary Impression: Closed head injury Additional Impression: Fall Departure Information Dispostion Home / Self-Care Condition GOOD Referrals Edwige Mason DO (PCP) Patient Instructions My [facility] Additional Instructions You have been treated in the Emergency Department for a Closed Head Injury. CT Scan of your head/brain demonstrated no acute bleeding or other abnormalities. This does not completely rule out the risk for future damage to the brain. For pain control, you can use the following [id number] medicines (if >12 yo): - Regular strength (325mg/tab) Tylenol (acetaminophen) 2 tabs every 4-6 hours as needed. Do not exceed 12 tablets in a 24 hour period. Avoid taking more than 4 grams (4000 mg) of Tylenol per day. This includes any other sources of acetaminophen you may take on a regular basis. Follow-up with your primary care provider this week for a recheck. Return to the Emergency Department if your current symptoms worsen despite treatment course outlined above, or if you develop any of the following symptoms : intractable pain despite aforementioned treatment course, visual disturbances , loss of vision, unilateral weakness or facial drooping, slurring of speech, loss of coordination, or loss of consciousness. Problem Qualifiers Primary Impression: Closed head injury Encounter type: initial encounter Qualified Codes: S09.90XA - Unspecified injury of head, initial encounter Additional Impression: Fall Encounter type: initial encounter Qualified Codes: W19.XXXA - Unspecified fall, initial encounter
[2017-12-14 22:20] VITALS: BP 130/70; PULSE 66; O2SAT 98
== END 2017-12-14 22:20 | disposition home or self-care (01) ==
LOC: C.EDB 19:59 → C.EDD 22:20
DX: S00.93XA Contusion of unspecified part of head, initial encounter (principal); W01.198A Fall on same level from slipping, tripping and stumbling with subsequent striking against other object, initial encounter; R40.2412 Glasgow coma scale score 13-15, at arrival to emergency department; G20 Parkinson's disease; I10 Essential (primary) hypertension; I48.91 Unspecified atrial fibrillation; Z79.01 Long term (current) use of anticoagulants

== ENCOUNTER 2017-12-19 17:30 | Emergency (ER) | payer OTHER ==
[~2017-12-19] VITALS: Ht 162.6 cm; Wt 83.0 kg
[2017-12-19 17:42] VITALS: TEMP 36.3; Ht 162.6 cm; Wt 83.0 kg
[2017-12-19] MEDS ORDERED: SODIUM CHLORIDE 0.9% 1000ML 1,000 ML IV STA (18:02)
[2017-12-19] MEDS ORDERED: LIDOCAINE/EPINEPH/TETRACAINE 1 EA SYR EXT STA (18:43)
[2017-12-19 18:59] LABS: BASO % 0.2 %; BASO ABS # 0.01 K/uL (0-0.2); EOS % 0.8 %; EOS ABS # 0.04 K/uL (0-0.5); HEMATOCRIT 36.7 % (37-47); HEMOGLOBIN 11.8 g/dL (12.0-16.0); IG# 0.01 K/uL (0.00-0.02); LYMPH % 15.5 %; LYMPH ABS # 0.78 K/uL (1.2-3.4); MEAN CORPUSCULAR HEMOGLOBIN 28.3 pg (25-34); MEAN CORPUSCULAR HGB CONC 32.2 g/dl (32-36); MEAN PLATELET VOLUME 10.3 fL (7.4-10.4); MONO % 9.1 %; MONO ABS # 0.46 K/uL (0.11-0.59); NEUT % 74.2 %; NEUT ABS # 3.74 K/uL (1.4-6.5); PLATELET COUNT 192 K/uL (130-400); RED CELL DISTRIBUTION WIDTH CV 15.3 % (11.5-14.5); RED CELL DISTRIBUTION WIDTH SD 49.4 fL (36.4-46.3); WHITE BLOOD COUNT 5.04 K/uL (4.8-10.8)
[2017-12-19 19:18] LABS: ALBUMIN 3.7 gm/dl (3.4-5.0); ALT/SGPT 9 U/L (12-78); AST/SGOT 13 U/L (15-37); BLOOD UREA NITROGEN 36 mg/dl (7-18); CALCIUM 9.2 mg/dl (8.5-10.1); CARBON DIOXIDE 30 mmol/L (21-32); CREATININE 1.32 mg/dl (0.60-1.20); GLUCOSE 94 mg/dl (70-99); LIPASE 206 U/L (73-393); POTASSIUM 4.5 mmol/L (3.5-5.1); SODIUM 136 mmol/L (136-145)
[2017-12-19 19:23] LABS: ALKALINE PHOSPHATASE 260 U/L (45-117); TOTAL PROTEIN 7.3 gm/dl (6.4-8.2)
--- NOTE | 2017-12-19 20:05 | EMERGENCY ROOM VISIT NOTE ---
History Report prepared by Morales: Jason Rodriguez Under the Supervision of: Dr. Wolf Hussein M.D. First contact with patient: 18:02 Chief Complaint: FALL Stated Complaint: FALL-HEAD LACERATION History of Present Illness The patient is a 82 year old female who presents to the Emergency Room with complaints of intermittent falls that began five days ago. She rates her discomfort as a 4/10 in severity. The patient is accompanied by family who states the patient first fell five days ago and hit her head. She states the patient came into the ED and was discharged home. Her family states the patient fell again throughout the week but states that the patient did not hit her head , which caused her to not bring her to the ED. She reports the patient fell again today after slipping getting off of the scale. Her family states that patient hit her head on a heating element, which caused a laceration. The patient denies LOC, headache, visual changes, neck pain, chest pain, breathing difficulties, nausea, vomiting, abdominal pain, extremity pain, numbness, weakness, or other complaints. The patient reports that she recently had back surgery, which went well. She states that she has had minimal pain, but reports she has recently been experiencing left lower back pain. The patient reports that she is currently on blood thinners. Source of History: patient, family Onset: five days ago Position: other (global) Symptom Intensity: 4/10 Quality: other (global) Timing: intermittent Associated Symptoms: + back pain Review of Systems See HPI for pertinent positives and negatives. A total of ten systems were reviewed and were otherwise negative. Past Medical & Surgical Medical Problems: (1) Atrial fibrillation (2) C. difficile colitis (3) Chronic lower back pain (4) Hyperlipidemia (5) Hyperosmolality and hypernatremia (6) Hypertension (7) Lumbar stenosis with neurogenic claudication (8) Neuropathy (9) Parkinsons Family History No pertinent family history Social History Smoking Status: Never Smoker Alcohol Use: none Drug Use: none Marital Status: Housing Status: lives with significant other Occupation Status: retired Current/Historical Medications Scheduled Amiodarone Hcl (Cordarone), 200 MG PO QPM Artificial Tear Ointment (Eye Lubricant), 1 APPLN OPB HS Calcium Carbonate-Vitamin D (Calcium + D3 600-200 mg-Unit), 1 TAB PO QPM Carbidopa-Levodopa (Sinemet Cr 50-200 mg), 1 TAB PO HS Carbidopa/Levodopa (Sinemet 25MG/100MG), 3 TABS PO QID Clonazepam (Klonopin), 0.25 MG PO HS Docusate Sodium (Docusate Sodium), 100 MG PO Q2D OR PRN Donepezil HCl (Donepezil HCl), 10 MG PO HS Ferrous Sulfate (Ferrous Sulfate), 325 MG PO UD Gabapentin (Neurontin), 100 MG PO HS Lisinopril (Prinivil), 5 MG PO QAM Memantine (Namenda), 5 MG PO BID Ocuvite Preservision (Ocuvite Preservision), 1 TAB PO HS Ranitidine (Zantac), 150 MG PO BID Rivaroxaban (Xarelto), 15 MG PO HS Selegiline HCl (Selegiline HCl), 5 MG PO BID Scheduled PRN Acetaminophen/Codeine (Tylenol W/Codeine #3), 1 TAB PO Q8 PRN for Pain Carbidopa-Levodopa (Carbidopa/Levodopa Odt), 25-250 MG PO TID PRN for PARKINSON' S CONTROL Furosemide (Lasix), 40 MG PO DAILY PRN for Gabapentin (Neurontin), 300 MG PO UD PRN for Pain Hydrocodone/Acetaminophen 5MG/325MG ([place] 5MG/325MG), 1 TABLET PO Q6 PRN for Pain Levalbuterol Tartrate (Levalbuterol Tartrate Hfa), 2 PUFFS INH DAILY PRN for SOB /Wheezing Oxycodone HCl (Oxycodone HCl), 5-10 MG PO Q4H PRN for Moderate - severe pain Polyethylene Glycol 3350 (Miralax), 17 GM PO UD PRN for PRN Allergies Coded Allergies: Succinylcholine (Verified Allergy, Severe, PSEUDO-CHOLINESTERASE DEFICIENCY, 09/29/17) GENETIC TESTING WAS DONE TO CONFIRM DX OF PSEUDO-CHOLINESTERASE DEFICIENCY Physical Exam Vital Signs Date Time Temp Pulse Resp B/P (MAP) Pulse Ox O2 Delivery O2 Flow Rate FiO2 12/19/17 21:07 84 20 167/68 98 Room Air 12/19/17 19:23 56 12/19/17 18:50 60 16 175/82 96 12/19/17 17:42 36.3 60 20 132/72 100 Room Air Physical Exam GENERAL: Awake, alert, well-appearing, in no distress HENT: 3 cm laceration to left posterior scalp. Oropharynx unremarkable. EYES: Normal conjunctiva. Sclera non-icteric. NECK: Supple. No nuchal rigidity. FROM. No masses. RESPIRATORY: Clear to auscultation. No wheezes. CARDIAC: Normal rate. Normal rhythm. No murmurs. No rubs. Extremities warm and well perfused. Pulses equal. No JVD. GI: Soft, non-distended. No tenderness to palpation. No rebound or guarding. No masses. RECTAL: Deferred. MUSCULOSKELETAL: Atraumatic. Chest examination reveals no tenderness. The back is symmetrical on inspection without obvious abnormality. Back incision is clean , dry, and intact. There is no CVA tenderness to palpation. No joint edema. LOWER EXTREMITIES: Calves are equal size bilaterally and non-tender. Trace edema. Chronic venous discoloration. NEURO: Normal sensorium. No sensory or motor deficits noted. SKIN: No rash or jaundice noted. Medical Decision & Procedures ER Provider Diagnostic Interpretation: Radiology results as stated below per my review and radiologist interpretation: CT HEAD WITHOUT CONTRAST (CT) CLINICAL HISTORY: Head trauma. Scalp laceration. Patient on blood thinners. COMPARISON STUDY: December 14, 2017 TECHNIQUE: Axial CT of the brain is performed from the vertex to the skull base. IV contrast was not administered for this examination. A dose lowering technique was utilized adhering to the principles of ALARA. CT DOSE: 537.48 mGy.cm FINDINGS: No intra or extra-axial mass lesions are visualized. There is no CT evidence of acute cortical infarction. There is no evidence of midline shift. There is no acute hemorrhage. No calvarial fractures are visualized. There are patchy white matter hypodensities likely on a small vessel basis. There is no evidence of pathologic ventricular dilatation. There is no evidence of acute sinusitis. There is a left parietal scalp hematoma and laceration with skin sweta. IMPRESSION: 1. Scalp injury. 2. No acute intracranial findings. Electronically signed by: Norris Jasso M.D. 12/19/2017 9:34 PM Dictated Date/Time: 12/19/2017 9:25 PM Laboratory Results 12/19/17 18:30 Red Blood Count 4.17, Mean Corpuscular Volume 88.0, Mean Corpuscular Hemoglobin 28.3, Mean Corpuscular Hemoglobin Concent 32.2, Mean Platelet Volume 10.3, Neutrophils (%) (Auto) 74.2, Lymphocytes (%) (Auto) 15.5, Monocytes (%) (Auto) 9.1, Eosinophils (%) (Auto) 0.8, Basophils (%) (Auto) 0.2, Neutrophils # (Auto) 3.74, Lymphocytes # (Auto) 0.78, Monocytes # (Auto) 0.46, Eosinophils # (Auto) 0.04, Basophils # (Auto) 0.01 12/19/17 18:30 Test 12/19/17 18:30 12/19/17 18:45 White Blood Count 5.04 K/uL (4.8-10.8) Red Blood Count 4.17 M/uL (4.2-5.4) Hemoglobin 11.8 g/dL (12.0-16.0) Hematocrit 36.7 % (37-47) Mean Corpuscular Volume 88.0 fL (80-100) Mean Corpuscular Hemoglobin 28.3 pg (25-34) Mean Corpuscular Hemoglobin Concent 32.2 g/dl (32-36) Platelet Count 192 K/uL (130-400) Mean Platelet Volume 10.3 fL (7.4-10.4) Neutrophils (%) (Auto) 74.2 % Lymphocytes (%) (Auto) 15.5 % Monocytes (%) (Auto) 9.1 % Eosinophils (%) (Auto) 0.8 % Basophils (%) (Auto) 0.2 % Neutrophils # (Auto) 3.74 K/uL (1.4-6.5) Lymphocytes # (Auto) 0.78 K/uL (1.2-3.4) Monocytes # (Auto) 0.46 K/uL (0.11-0.59) Eosinophils # (Auto) 0.04 K/uL (0-0.5) Basophils # (Auto) 0.01 K/uL (0-0.2) RDW Standard Deviation 49.4 fL (36.4-46.3) RDW Coefficient of Variation 15.3 % (11.5-14.5) Immature Granulocyte % (Auto) 0.2 % Immature Granulocyte # (Auto) 0.01 K/uL (0.00-0.02) Anion Gap 4.0 mmol/L (3-11) Est Creatinine Clear Calc Drug Dose 34.8 ml/min Estimated GFR () 43.7 Estimated GFR (Non- 37.7 BUN/Creatinine Ratio 27.4 (10-20) Calcium Level 9.2 mg/dl (8.5-10.1) Total Bilirubin 1.1 mg/dl (0.2-1) Direct Bilirubin 0.3 mg/dl (0-0.2) Aspartate Amino Transf (AST/SGOT) 13 U/L (15-37) Alanine Aminotransferase (ALT/SGPT) 9 U/L (12-78) Alkaline Phosphatase 260 U/L (45-117) Troponin I < 0.015 ng/ml (0-0.045) Total Protein 7.3 gm/dl (6.4-8.2) Albumin 3.7 gm/dl (3.4-5.0) Lipase 206 U/L (73-393) Urine Color YELLOW Urine Appearance CLEAR (CLEAR) Urine pH 5.5 (4.5-7.5) Urine Specific [place] 1.007 (1.000-1.030) Urine Protein NEG (NEG) Urine Glucose (UA) NEG (NEG) Urine Ketones NEG (NEG) Urine Occult Blood NEG (NEG) Urine Nitrite NEG (NEG) Urine Bilirubin NEG (NEG) Urine Urobilinogen NEG (NEG) Urine Leukocyte Esterase NEG (NEG) Laboratory results reviewed by me Medications Administered Medications (Trade) Dose Ordered Sig/Geronimo Route Start Time Stop Time Status Last Admin Dose Admin Sodium Chloride 1,000 ml @ 125 mls/hr Q8H STAT IV 12/19/17 18:02 12/20/17 02:01 12/19/17 18:50 125 MLS/HR Tetracaine/ Epinephrine/ Lidocaine (L.e.t. Gel 4%/ 1:100/0.5%) 1 ea UD STAT EXT 12/19/17 18:43 12/19/17 18:46 DC 12/19/17 19:07 1 EA Procedure Location: Laceration to left posterior scalp Total length: 3 cm Complexity: Simple Verbal consent was obtained after the risks and benefits were explained, including but not limited to bleeding, scarring, infection, pain, and bone/joint /nerve damage. At this time, the risks of the procedure are less than the risks of NOT performing the procedure. A time out was taken and the correct patient and site identified. The skin was prepped with betadine. The target area was anesthetized with L.E.T. Gel. Copious irrigation was performed using Saline. The skin was re-prepped with betadine and a sterile field set. The wound was explored for foreign bodies and none found. Examination revealed no injury to deep structures such as tendons, bone, or significant blood vessels. Debridement was not performed. The wound edges were approximated using 5 sweta. Hemostasis and excellent approximation was achieved. Antibacterial ointment and a sterile dressing applied. Detailed wound care instructions and signs and symptoms of infection reviewed with the the patient. No complications and the patient tolerated the procedure well. ECG Per My Interpretation Indication: weakness Rate (beats per minute): 55 Rhythm: sinus bradycardia Findings: no acute ischemic change, no ectopy, other (Normal intervals) ED Course 1801: Ordered Sodium Chloride 1000 @ 125 mls/hr IV. 1830: The patient was evaluated in room B07. A complete history and physical exam was performed. 1842: Ordered Tetracaine/ Epinephrine/ Lidocaine 1 each EXT. 2027: I reevaluated the patient and performed a laceration repair. 2150: I reevaluated the patient. Discussed results and discharge instructions: She verbalized understanding and agreement. The patient is ready for discharge. Medical Decision Triage Nursing notes reviewed. The patient's presentation and history were concerning for repeated falls and head injury. Etiologies such as contusion, fracture, intracranial bleeding, metabolic, infection, hypo/hyperglycemia, electrolyte abnormalities, cardiac sources, intracerebral event, toxicologic, neurologic, as well as others were entertained. The patient was evaluated. She has a laceration. Family was concerned about the frequent falls and questioned a possible. The patient's ECG was unremarkable. Blood work was obtained and did not reveal any abnormalities that would contribute. Her urinalysis was negative. CT scan did not reveal any acute findings. The laceration was repaired with surgical sweta. She tolerated this well. The patient feels that she is falling due to her Parkinson 's and this could easily explain the issue. She will need close follow-up as an outpatient. Family feels comfortable as does the patient. I gave my usual and customary discussion regarding this issue. By the evaluation outlined above other emergent etiologies such as those listed in the differential, as well as others, were deemed relatively unlikely. The patient was educated about the findings as listed above. All questions were answered and the patient was pleased with the treatment. Return instructions were outlined and the patient was discharged in stable condition. The patient was referred to her PCP for follow-up for a recheck of the current condition. Medication Reconcilliation Current Medication List: was personally reviewed by me Blood Pressure Screening Patient's blood pressure: Elevated blood pressure Blood pressure disposition: Referred to PCP Impression Primary Impression: Fall Additional Impression: Scalp laceration Scribe Attestation The scribe's documentation has been prepared under my direction and personally reviewed by me in its entirety. I confirm that the note above accurately reflects all work, treatment, procedures, and medical decision making performed by me. Departure Information Dispostion Home / Self-Care Referrals Edwige Mason DO (PCP) Forms HOME CARE DOCUMENTATION FORM, IMPORTANT VISIT INFORMATION Patient Instructions My [facility] Additional Instructions Bacitracin to wounds once daily. Use a non-stick dressing such as a large band-aid. Change the dressings once a day. Tylenol as needed for pain. Allow your wounds to air dry several hours per day when you are resting, but it is a good idea to keep them covered while sleeping to prevent irritation and the sheets sticking to the wound. Apply direct pressure for any bleeding. Return to the ER immediately for severe headache, chest pain, additional falls, spreading redness, fevers, pus-like drainage, severe pain, or as needed. Return to the ER in 7 days for suture/staple removal, or sooner as needed. Follow-up with your primary care physician in 2 to 3 days for a recheck of your current condition and to discuss the frequent falls. Problem Qualifiers
--- NOTE | 2017-12-19 21:36 | DIAGNOSTIC IMAGING REPORT ---
CT HEAD WITHOUT CONTRAST (CT) CLINICAL HISTORY: Head trauma. Scalp laceration. Patient on blood thinners. COMPARISON STUDY: December 14, 2017 TECHNIQUE: Axial CT of the brain is performed from the vertex to the skull base. IV contrast was not administered for this examination. A dose lowering technique was utilized adhering to the principles of ALARA. CT DOSE: 537.48 mGy.cm FINDINGS: No intra or extra-axial mass lesions are visualized. There is no CT evidence of acute cortical infarction. There is no evidence of midline shift. There is no acute hemorrhage. No calvarial fractures are visualized. There are patchy white matter hypodensities likely on a small vessel basis. There is no evidence of pathologic ventricular dilatation. There is no evidence of acute sinusitis. There is a left parietal scalp hematoma and laceration with skin sweta. IMPRESSION: 1. Scalp injury. 2. No acute intracranial findings. Electronically signed by: Norris Jasso M.D. 12/19/2017 9:34 PM Dictated Date/Time: 12/19/2017 9:25 PM
[2017-12-19 23:23] VITALS: BP 98/64; PULSE 87; O2SAT 96
== END 2017-12-19 23:23 | disposition home or self-care (01) ==
LOC: C.EDB 17:31
DX: S01.01XA Laceration without foreign body of scalp, initial encounter (principal); W19.XXXA Unspecified fall, initial encounter; I48.91 Unspecified atrial fibrillation; E78.5 Hyperlipidemia, unspecified; I10 Essential (primary) hypertension; G20 Parkinson's disease; E87.0 Hyperosmolality and hypernatremia; A04.72 Enterocolitis due to Clostridium difficile, not specified as recurrent; Z88.8 Allergy status to other drugs, medicaments and biological substances

== ENCOUNTER → 2018-03-03 | Outpatient (CLI) | payer OTHER ==
[2018-03-03 17:04] LABS: HEMATOCRIT 36.6 % (37-47); HEMOGLOBIN 11.7 g/dL (12.0-16.0); MEAN CELL VOLUME 91.5 fL (80-100); MEAN CORPUSCULAR HEMOGLOBIN 29.3 pg (25-34); PLATELET COUNT 213 K/uL (130-400); RED CELL DISTRIBUTION WIDTH CV 16.9 % (11.5-14.5); RED CELL DISTRIBUTION WIDTH SD 56.2 fL (36.4-46.3); WHITE BLOOD COUNT 6.47 K/uL (4.8-10.8)
[2018-03-03 17:19] LABS: GLUCOSE 90 mg/dl (70-99)
[2018-03-03 17:20] LABS: BLOOD UREA NITROGEN 40 mg/dl (7-18); CALCIUM 9.1 mg/dl (8.5-10.1); CARBON DIOXIDE 27 mmol/L (21-32); CREATININE 1.45 mg/dl (0.60-1.20); POTASSIUM 4.3 mmol/L (3.5-5.1); SODIUM 137 mmol/L (136-145)
== END | disposition home or self-care (01) ==
LOC: C.LABPBG 11:18
PROVIDERS: ATTEND Family Medicine
DX: I10 Essential (primary) hypertension (principal); I48.91 Unspecified atrial fibrillation

== ENCOUNTER 2018-06-02 05:13 | Observation (INO) | payer OTHER ==
[~2018-06-02] VITALS: Ht 160 cm; Wt 75.9 kg
[~2018-06-02 05:13] MED LIST changes: -ACET-749 PO; +ACET300T3 PO; -CLON0.5T3 PO; +KLN/5 PO
--- NOTE | 2018-06-02 05:19 | EMERGENCY ROOM VISIT NOTE ---
History First contact with patient: 05:19 Chief Complaint: CHEST PAIN Stated Complaint: CHEST PAIN History of Present Illness The patient is a 82 year old female who presents to the Emergency Room for evaluation of chest pain. Notes she was awake at 2 am when she developed left chest pressure going down her left arm. Tight in nature. Associated diaphoresis. No shortness of breath, nausea, vomiting, headache, neck pain, abdominal pain, palpitations, leg swelling, calf pain, fevers nor other symptoms. Nothing made better nor worse. EMS contacted due to continued pain and she received 2 SLNTG tabs and 324mg ASA with resolution of her chest pain. She notes she is feeling much better now. No history of ACS per patient. She does not recall whether previous cath/stress testing. Notes history Afib for which she is on Xarelto. Also with history of DLP, HTN, along with Parkinson's , hypernatremia history, cdiff in past as well as previous back surgery last year. Review of Systems See HPI for pertinent positives & negatives. A total of 10 systems reviewed and were otherwise negative. Past Medical/Surgical History Medical Problems: (1) Atrial fibrillation (2) C. difficile colitis (3) Chronic lower back pain (4) Hyperlipidemia (5) Hyperosmolality and hypernatremia (6) Hypertension (7) Lumbar stenosis with neurogenic claudication (8) Neuropathy (9) Parkinsons Family History No pertinent family history Social History Smoking Status: Never Smoker Alcohol Use: none Drug Use: none Marital Status: Housing Status: lives with significant other Occupation Status: retired Current/Historical Medications Scheduled Alendronate Sodium (Fosamax), 70 MG PO WK Amiodarone Hcl (Cordarone), 200 MG PO QPM Carbidopa-Levodopa (Sinemet Cr 50-200 mg), 1 TAB PO HS Carbidopa/Levodopa (Sinemet 25MG/100MG), 3 TABS PO QID Clonazepam (Klonopin), 0.25 MG PO HS Donepezil Hydrochloride (Donepezil Hcl), 10 MG PO HS Lisinopril (Prinivil), 5 MG PO QAM Memantine (Namenda), 5 MG PO BID Ranitidine (Zantac), 150 MG PO AMPM Rivaroxaban (Xarelto), 20 MG PO QPM Selegiline HCl (Selegiline HCl), 5 MG PO AMPM Scheduled PRN Artificial Tear Ointment (Eye Lubricant), 1 APPLN OPB DIRECTED PRN for DRYNESS Carbidopa-Levodopa (Carbidopa/Levodopa Odt), 25-250 MG PO TID PRN for PARKINSON' S CONTROL Furosemide (Lasix), 20-40 MG PO DAILY PRN for FLUID RETENTION Hydrocodone/Acetaminophen 5MG/325MG ([place] 5MG/325MG), 1 TABLET PO Q6 PRN for Pain Polyethylene Glycol 3350 (Miralax), 17 GM PO DAILY PRN for Constipation Physical Exam Vital Signs Date Time Temp Pulse Resp B/P (MAP) Pulse Ox O2 Delivery O2 Flow Rate FiO2 06/02/18 06:13 57 14 06/02/18 06:01 119/60 06/02/18 05:58 57 17 100 Room Air 06/02/18 05:49 121/62 06/02/18 05:43 67 20 99 Room Air 06/02/18 05:38 72 06/02/18 05:24 144/81 06/02/18 05:24 36.9 65 20 144/81 99 Room Air Physical Exam GENERAL: Patient is tired appearing and in no acute distress. EYES: No scleral icterus, unremarkable pupils. ENT: Mucous membranes moist, no nasal congestion. NECK: No masses appreciated, no meningismus, trachea is midline. RESPIRATORY: No dyspnea. Clear to auscultation and equal bilaterally. No wheeze , no rhonchi. CARDIOVASCULAR: Regular rate and rhythm. No murmurs, rubs, gallops appreciated. GASTROINTESTINAL: Abdomen soft, nontender, no peritonitis. Bowel sounds positive. No masses appreciated. BACK: No midline tenderness, no CVA tenderness EXTREMITIES: Normal motion all extremities, no cyanosis, no edema. NEUROLOGIC: Movements consistent with Parkison's, otherwise she is alert and oriented, no acute motor or sensory deficits, no focal weakness, cranial nerves grossly intact. SKIN: No rash, no jaundice, no diaphoresis. Medical Decision & Procedures ER Provider Diagnostic Interpretation: X ray results are stated below per my interpretation: Chest: 1 view: No infiltrate, no effusion, normal cardiac border. Laboratory Results 06/02/18 05:35 Red Blood Count 4.22, Mean Corpuscular Volume 93.8, Mean Corpuscular Hemoglobin 29.9, Mean Corpuscular Hemoglobin Concent 31.8, Mean Platelet Volume 10.3, Neutrophils (%) (Auto) 68.6, Lymphocytes (%) (Auto) 19.7, Monocytes (%) (Auto) 10.6, Eosinophils (%) (Auto) 0.9, Basophils (%) (Auto) 0.0, Neutrophils # (Auto ) 3.80, Lymphocytes # (Auto) 1.09, Monocytes # (Auto) 0.59, Eosinophils # (Auto ) 0.05, Basophils # (Auto) 0.00 06/02/18 05:35 Test 06/02/18 05:35 06/02/18 05:44 White Blood Count 5.54 K/uL (4.8-10.8) Red Blood Count 4.22 M/uL (4.2-5.4) Hemoglobin 12.6 g/dL (12.0-16.0) Hematocrit 39.6 % (37-47) Mean Corpuscular Volume 93.8 fL (80-100) Mean Corpuscular Hemoglobin 29.9 pg (25-34) Mean Corpuscular Hemoglobin Concent 31.8 g/dl (32-36) Platelet Count 225 K/uL (130-400) Mean Platelet Volume 10.3 fL (7.4-10.4) Neutrophils (%) (Auto) 68.6 % Lymphocytes (%) (Auto) 19.7 % Monocytes (%) (Auto) 10.6 % Eosinophils (%) (Auto) 0.9 % Basophils (%) (Auto) 0.0 % Neutrophils # (Auto) 3.80 K/uL (1.4-6.5) Lymphocytes # (Auto) 1.09 K/uL (1.2-3.4) Monocytes # (Auto) 0.59 K/uL (0.11-0.59) Eosinophils # (Auto) 0.05 K/uL (0-0.5) Basophils # (Auto) 0.00 K/uL (0-0.2) RDW Standard Deviation 54.9 fL (36.4-46.3) RDW Coefficient of Variation 16.0 % (11.5-14.5) Immature Granulocyte % (Auto) 0.2 % Immature Granulocyte # (Auto) 0.01 K/uL (0.00-0.02) Prothrombin Time 11.0 SECONDS (9.0-12.0) Prothromb Time International Ratio 1.0 (0.9-1.1) Activated Partial Thromboplast Time 31.9 SECONDS (21.0-31.0) Partial Thromboplastin Ratio 1.2 Urine WBC (Auto) 1-5 /hpf (0-5) Urine RBC (Auto) 0-4 /hpf (0-4) Urine Hyaline Casts (Auto) 0 /lpf (0-5) Urine Epithelial Cells (Auto) 5-10 /lpf (0-5) Urine Bacteria (Auto) NEG (NEG) Anion Gap 5.0 mmol/L (3-11) Est Creatinine Clear Calc Drug Dose 37.1 ml/min Estimated GFR () 49.6 Estimated GFR (Non- 42.8 BUN/Creatinine Ratio 28.8 (10-20) Calcium Level 9.3 mg/dl (8.5-10.1) Troponin I < 0.015 ng/ml (0-0.045) Medications Administered Medications (Trade) Dose Ordered Sig/Geronimo Route Start Time Stop Time Status Last Admin Dose Admin Nitroglycerin (Nitroglycerin 2% Oint) 1 inch NOW ONCE EXT 06/02/18 05:30 06/02/18 05:31 DC 06/02/18 05:46 1 INCH ECG Per My Interpretation Indication: chest pain Rate (beats per minute): 62 Rhythm: normal sinus Findings: no acute ischemic change, prolonged QT Comparison ECG Date: 30-Sep-2017 Change: no significant change Medical Decision Differential: Cardiac Ischemia (STEMI, NSTEMI, Unstable Angina, etc), Aortic Dissection, Arrhythmia, Pulmonary Embolism, Pneumonia, Pneumothorax, MSK, Infectious, Pericarditis/Myocarditis, Esophageal Rupture, Gastrointestinal, amongst other pathologies entertained. 82 yr old female with history of Afib along with HTN/DLP though no known CAD arrives after 1 hours crushing left chest pressure to arm associated with diaphoresis which resolved with 2 SLNTG. EKG here unremarkable. Trop negative. Looks well. No evidence of PE and with her being on Xarelto I do not feel scan indicated. CXR without acute findings. She is stable, no further symptoms and in no distress. Hospitalist consulted for cardiac rule out and further monitoring/evaluation. Medication Reconcilliation Current Medication List: was personally reviewed by me Blood Pressure Screening Patient's blood pressure: Normal blood pressure Impression Primary Impression: Left sided chest pain Departure Information Referrals Edwige Mason DO (PCP) Patient Instructions My [facility]
[2018-06-02] MEDS ORDERED: NITROGLYCERIN 2% OINTMENT 30GM TUBE EXT ONE (05:30)
[2018-06-02 05:48] LABS: EOS % 0.9 %; EOS ABS # 0.05 K/uL (0-0.5); HEMATOCRIT 39.6 % (37-47); HEMOGLOBIN 12.6 g/dL (12.0-16.0); IG# 0.01 K/uL (0.00-0.02); LYMPH % 19.7 %; LYMPH ABS # 1.09 K/uL (1.2-3.4); MEAN CELL VOLUME 93.8 fL (80-100); MEAN CORPUSCULAR HEMOGLOBIN 29.9 pg (25-34); MEAN CORPUSCULAR HGB CONC 31.8 g/dl (32-36); MEAN PLATELET VOLUME 10.3 fL (7.4-10.4); MONO % 10.6 %; MONO ABS # 0.59 K/uL (0.11-0.59); NEUT % 68.6 %; PLATELET COUNT 225 K/uL (130-400); RED CELL DISTRIBUTION WIDTH SD 54.9 fL (36.4-46.3); WHITE BLOOD COUNT 5.54 K/uL (4.8-10.8)
[2018-06-02] MEDS ORDERED: ALEN70TA4 PO (05:51)
[2018-06-02] MEDS ORDERED: RIVA1TAB4 PO (05:58)
[2018-06-02] MEDS ORDERED: DONE1TAB26 PO (05:58)
[2018-06-02 06:02] LABS: PTT PATIENT 31.9 SECONDS (21.0-31.0)
[2018-06-02 06:09] LABS: BLOOD UREA NITROGEN 34 mg/dl (7-18); CALCIUM 9.3 mg/dl (8.5-10.1); CARBON DIOXIDE 28 mmol/L (21-32); CREATININE 1.19 mg/dl (0.60-1.20); GLUCOSE 111 mg/dl (70-99); POTASSIUM 4.3 mmol/L (3.5-5.1); SODIUM 140 mmol/L (136-145)
--- NOTE | 2018-06-02 07:11 | DIAGNOSTIC IMAGING REPORT ---
SINGLE VIEW CHEST CLINICAL HISTORY: Atypical chest pain. FINDINGS: An AP, portable, upright chest radiograph is compared to study dated 08/26/2017 and correlated with chest CT dated 09/09/2016. The examination is degraded by portable technique and patient rotation. The cardiomediastinal silhouette is unremarkable noting atherosclerotic calcification of the thoracic aorta. The mitral annulus is densely calcified. The lungs and pleural spaces are clear. No pneumothorax is seen. The skeletal structures are osteopenic. Degenerative change is noted in the shoulders and thoracic spine. The bony thorax is grossly intact. IMPRESSION: No acute cardiopulmonary abnormality. Electronically signed by: Jameel Martino M.D. 06/02/2018 7:10 AM Dictated Date/Time: 06/02/2018 7:09 AM
[2018-06-02] MEDS ORDERED: POLYETHYLENE (MIRALAX) 17 GM PACK PO PRN (07:45)
[2018-06-02] MEDS ORDERED: MAGNESIUM HYDROXIDE SUSP 30 ML UDC PO PRN (07:45)
[2018-06-02] MEDS ORDERED: ALUMINUM/MAGNESIUM/SIMETH (MAALOX MAX) 30 ML UDC PO PRN (07:45)
[2018-06-02] MEDS ORDERED: HYDROCODONE/ACETAMIN 5/325MG TAB PO PRN (07:45)
[2018-06-02] MEDS ORDERED: ACETAMINOPHEN 325 MG TAB PO PRN (07:45)
[2018-06-02] MEDS ORDERED: NITROGLYCERIN 0.4 MG SL PER TAB CHARGE SL PRN (07:45)
[2018-06-02] MEDS ORDERED: ONDANSETRON INJ 2 MG/ML 2 ML VIAL IV PRN (07:45)
[2018-06-02 07:52] VITALS: O2SAT 100; Ht 160 cm; Wt 75.9 kg
[2018-06-02] MEDS ORDERED: IV FLUIDS COMPLETED PRN (08:00)
[2018-06-02 08:50] VITALS: O2SAT 95
[2018-06-02] MEDS ORDERED: HEPARIN SOD 5000 UNIT/0.5 ML CARP SQ SCH (09:00)
[2018-06-02] MEDS ORDERED: CARBIDOPA/LEVODOPA 25/100MG TAB PO SCH (09:00)
[2018-06-02] MEDS: MEMANTINE 5 MG TAB PO SCH ×2 (10:39→20:24)
[2018-06-02] MEDS: CARBIDOPA/LEVODOPA 25/100MG TAB PO SCH ×3 (10:39→18:00)
[2018-06-02] MEDS: SELEGILINE HCL 5 MG CAP PO SCH ×2 (10:39→20:24)
[2018-06-02] MEDS: RANITIDINE HCL 150 MG TAB PO SCH ×2 (10:39→20:23)
[2018-06-02] MEDS: ASPIRIN 325 MG ECTAB PO SCH (10:39)
[2018-06-02] MEDS: LISINOPRIL 5 MG TAB PO SCH (10:40)
[2018-06-02 10:43] VITALS: BP 136/63; PULSE 57; TEMP 36.6; O2SAT 100
[2018-06-02 15:21] VITALS: BP 120/68; PULSE 59; TEMP 36.4; O2SAT 96
--- NOTE | 2018-06-02 17:05 | History and Physical ---
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 She phoned her daughter in the teller vault hours of the day of admission complaining of substernal chest pain. Her daughter phone ambulance services and upon arrival they did give the patient aspirin and nitroglycerin which relieved her pain. Currently the patient has difficulty recalling the events of the morning whether the pain awoke her from sleep or she awoke and then had the pain. Patient typically does not suffer from reflux disease and her cardiac disease is related to mostly atrial fibrillation in the emergency department she had no acute EKG changes and her initial troponin was unremarkable the biggest concern from the family of course is to continue her medications for Parkinson's disease as with when she does not have these she tends to have significant movement issues Past Medical/Surgical History Medical Problems: (1) Ambulatory dysfunction (2) Anemia (3) Anemia (4) Atrial fibrillation (5) Atrial fibrillation with RVR (6) Atrial fibrillation with RVR (7) Bradycardia (8) C. difficile colitis (9) Chronic lower back pain (10) Closed head injury (11) Colitis (12) Constipation (13) Dehydration (14) Diarrhea (15) Elevated INR (16) Elevated INR (17) Fall (18) Generalized weakness (19) Hematoma of left flank (20) Hyperlipidemia (21) Hypernatremia (22) Hyperosmolality and hypernatremia (23) Hypertension (24) Hypotension (25) Hypothermia (26) Hypothermia (27) Intractable low back pain (28) Left sided chest pain (29) Lumbar stenosis with neurogenic claudication (30) Neuropathy (31) Parkinsons (32) Proctitis (33) Scalp laceration (34) UTI (urinary tract infection) (35) UTI (urinary tract infection) (36) Weakness (37) Weakness (38) Weakness (39) Weakness generalized Family History No pertinent family history pt cannot recall significant family illness Social History Smoking Status: Never Smoker Drug Use: none Marital Status: Housing status: lives with family Occupational Status: retired Allergies Coded Allergies: Succinylcholine (Verified Allergy, Severe, PSEUDO-CHOLINESTERASE DEFICIENCY, 06/02/18) GENETIC TESTING WAS DONE TO CONFIRM DX OF PSEUDO-CHOLINESTERASE DEFICIENCY Home Medications Scheduled Alendronate Sodium (Fosamax), 70 MG PO WK Amiodarone Hcl (Cordarone), 200 MG PO QPM Carbidopa-Levodopa (Sinemet Cr 50-200 mg), 1 TAB PO HS Carbidopa/Levodopa (Sinemet 25MG/100MG), 3 TABS PO QID Clonazepam (Klonopin), 0.25 MG PO HS Donepezil Hydrochloride (Donepezil Hcl), 10 MG PO HS Lisinopril (Prinivil), 5 MG PO QAM Memantine (Namenda), 5 MG PO BID Ranitidine (Zantac), 150 MG PO AMPM Rivaroxaban (Xarelto), 20 MG PO QPM Selegiline HCl (Selegiline HCl), 5 MG PO AMPM Scheduled PRN Artificial Tear Ointment (Eye Lubricant), 1 APPLN OPB DIRECTED PRN for DRYNESS Carbidopa-Levodopa (Carbidopa/Levodopa Odt), 25-250 MG PO TID PRN for PARKINSON' S CONTROL Furosemide (Lasix), 20-40 MG PO DAILY PRN for FLUID RETENTION Hydrocodone/Acetaminophen 5MG/325MG ([place] 5MG/325MG), 1 TABLET PO Q6 PRN for Pain Polyethylene Glycol 3350 (Miralax), 17 GM PO DAILY PRN for Constipation Review of Systems ROS: well nourished well developed. No double vision blurry vision No problems with speech or swallowing No palpitations, her daughter recalls her complaints of chest pain No Wheezing or breathing issues No abdominal pain nausea vomiting diarrhea changes in appetite or weight No burning urine urine frequency or changes in color No focal joint pain or muscle pain No skin rashes or oral lesions No unusual bruising or bleeding No focused back pain or numbness or loss of strength Baseline loss of memory and mild confusion Physical Exam Vital Signs Date Time Temp Pulse Resp B/P (MAP) Pulse Ox O2 Delivery O2 Flow Rate FiO2 06/02/18 15:21 36.4 59 16 120/68 (85) 96 Room Air 06/02/18 10:43 36.6 57 18 136/63 (87) 100 Room Air 06/02/18 08:50 95 Room Air 06/02/18 08:10 54 20 121/59 95 Room Air 06/02/18 08:01 56 06/02/18 07:52 100 Room Air 06/02/18 07:05 56 18 115/61 100 Room Air 06/02/18 06:13 57 14 06/02/18 06:01 119/60 06/02/18 05:58 57 17 100 Room Air 06/02/18 05:49 121/62 06/02/18 05:43 67 20 99 Room Air 06/02/18 05:38 72 06/02/18 05:24 144/81 06/02/18 05:24 36.9 65 20 144/81 99 Room Air General Appearance: WD/WN, no apparent distress Head: normocephalic, atraumatic Eyes: normal inspection, sclerae normal Neck: supple, no JVD Respiratory/Chest: chest non-tender, lungs clear, normal breath sounds Cardiovascular: regular rate, rhythm, no murmur Abdomen/GI: normal bowel sounds, non tender, soft Back: no CVA tenderness, no muscle spasm Extremities/Musculoskelatal: no pedal edema, normal range of motion Neurologic/Psych: alert, + depressed affect, + disoriented Skin: normal color, warm/dry Diagnostics Laboratory Results Results Past 24 Hours Test 06/02/18 05:35 06/02/18 10:51 06/02/18 16:49 Range/Units White Blood Count 5.54 4.8-10.8 K/uL Red Blood Count 4.22 4.2-5.4 M/uL Hemoglobin 12.6 12.0-16.0 g/dL Hematocrit 39.6 37-47 % Mean Corpuscular Volume 93.8 80-100 fL Mean Corpuscular Hemoglobin 29.9 25-34 pg Mean Corpuscular Hemoglobin Concent 31.8 32-36 g/dl Platelet Count 225 130-400 K/uL Mean Platelet Volume 10.3 7.4-10.4 fL Neutrophils (%) (Auto) 68.6 % Lymphocytes (%) (Auto) 19.7 % Monocytes (%) (Auto) 10.6 % Eosinophils (%) (Auto) 0.9 % Basophils (%) (Auto) 0.0 % Neutrophils # (Auto) 3.80 1.4-6.5 K/uL Lymphocytes # (Auto) 1.09 1.2-3.4 K/uL Monocytes # (Auto) 0.59 0.11-0.59 K/uL Eosinophils # (Auto) 0.05 0-0.5 K/uL Basophils # (Auto) 0.00 0-0.2 K/uL RDW Standard Deviation 54.9 36.4-46.3 fL RDW Coefficient of Variation 16.0 11.5-14.5 % Immature Granulocyte % (Auto) 0.2 % Immature Granulocyte # (Auto) 0.01 0.00-0.02 K/uL Prothrombin Time 11.0 9.0-12.0 SECONDS Prothromb Time International Ratio 1.0 0.9-1.1 Activated Partial Thromboplast Time 31.9 21.0-31.0 SECONDS Partial Thromboplastin Ratio 1.2 Urine Color YELLOW Urine Appearance CLEAR CLEAR Urine pH 5.5 4.5-7.5 Urine Specific [place] 1.007 1.000-1.030 Urine Protein NEG NEG Urine Glucose (UA) NEG NEG Urine Ketones NEG NEG Urine Occult Blood NEG NEG Urine Nitrite NEG NEG Urine Bilirubin NEG NEG Urine Urobilinogen NEG NEG Urine Leukocyte Esterase NEG NEG Urine WBC (Auto) 1-5 0-5 /hpf Urine RBC (Auto) 0-4 0-4 /hpf Urine Hyaline Casts (Auto) 0 0-5 /lpf Urine Epithelial Cells (Auto) 5-10 0-5 /lpf Urine Bacteria (Auto) NEG NEG Sodium Level 140 136-145 mmol/L Potassium Level 4.3 3.5-5.1 mmol/L Chloride Level 107 98-107 mmol/L Carbon Dioxide Level 28 21-32 mmol/L Anion Gap 5.0 3-11 mmol/L Blood Urea Nitrogen 34 7-18 mg/dl Creatinine 1.19 0.60-1.20 mg/dl Est Creatinine Clear Calc Drug Dose 37.1 ml/min Estimated GFR () 49.6 Estimated GFR (Non- 42.8 BUN/Creatinine Ratio 28.8 10-20 Random Glucose 111 70-99 mg/dl Calcium Level 9.3 8.5-10.1 mg/dl Troponin I < 0.015 < 0.015 0-0.045 ng/ml CXR normal Normal EKG Impression Assessment and Plan 82-year-old female with chest pain that occurred sometime in teller vault hours which may have been recumbent chest pain however there was some recollection by EMS that glycerin improved her pain Patient will be evaluated under her cardiac rule out protocol with serial troponin testing and likely stress testing once serial troponins are unremarkable as long as her monitor does not show any significant arrhythmia Given that this may been recumbent chest pain we discussed the fact this could be reflux we will institute a PPI at this point time Regarding her Parkinson's disease will maintain her Sinemet 4 times a day and also at night for adult 5 times doses a day Regarding her atrial fibrillation she is controlled with amiodarone and anticoagulated with Xarelto these will be maintained DVT prevention is with Xarelto Advanced Directives Existing Living Will: Yes Existing Power of Stick Welder: Yes (LENY MICHAELS ) Resuscitation Status VTE Prophylaxis Will order VTE Prophylaxis: Yes
[2018-06-02] MEDS ORDERED: PANTOprazole SOD 40 MG TAB PO ONE (17:15)
[2018-06-02 19:33] VITALS: BP 107/63; PULSE 59; TEMP 36.5; O2SAT 98
[2018-06-02] MEDS ORDERED: CLONAZEPAM 0.5 MG TAB PO SCH (21:00)
[2018-06-02] MEDS ORDERED: DONEPEZIL HCL 10 MG TAB PO SCH (21:00)
[2018-06-02] MEDS ORDERED: RIVAROXABAN TAB 15 MG TAB PO SCH (21:00)
[2018-06-02] MEDS ORDERED: AMIODARONE 200 MG TAB PO SCH (21:00)
[2018-06-02] MEDS ORDERED: CARBIDOPA/LEVODOPA 50/200MG EXT REL TAB PO SCH (21:00)
[2018-06-02 23:20] VITALS: BP 159/75; PULSE 57; TEMP 36.6; O2SAT 98
[2018-06-03] VITALS (8 sets, daily range): BP systolic 111–149; BP diastolic 67–79; PULSE 50–69; TEMP 36.4–36.6; O2SAT 97–100
[2018-06-03] MEDS: CARBIDOPA/LEVODOPA 25/100MG TAB PO SCH ×4 (05:38→16:26)
[2018-06-03] MEDS: LISINOPRIL 5 MG TAB PO SCH (07:56)
[2018-06-03] MEDS: RANITIDINE HCL 150 MG TAB PO SCH (07:56)
[2018-06-03] MEDS: MEMANTINE 5 MG TAB PO SCH (07:56)
[2018-06-03] MEDS: SELEGILINE HCL 5 MG CAP PO SCH (07:56)
[2018-06-03] MEDS: ASPIRIN 325 MG ECTAB PO SCH (07:56)
[2018-06-03] MEDS ORDERED: PANTOprazole SOD 40 MG TAB PO SCH (09:00)
[2018-06-03] MEDS ORDERED: METOPROLOL TARTRATE 1 MG/ML VIAL ONE (10:44)
[2018-06-03] MEDS ORDERED: DOBUTamine HCL 12.5 MG/ML 20 ML VIAL ONE (10:44)
[2018-06-03] MEDS ORDERED: ATROPINE SULFATE 0.1 MG/ML 10 ML SYR ONE (10:45)
[2018-06-03] MEDS ORDERED: XRL15 PO (14:46)
[2018-06-03] MEDS ORDERED: PANT40TA2 PO (14:46)
--- NOTE | 2018-06-03 14:51 | Discharge Instructions ---
Discharge Instructions Date of Service Jun 03, 2018. Admission Reason for Admission: Left Sided Chest Pain Discharge Discharge Diagnosis / Problem: non cardiac chest pain Discharge Goals Goal(s): Diagnostic testing, Therapeutic intervention Activity Recommendations Activity Limitations: as noted below Lifting Limitations: gradually increase as tolerated . Current Hospital Diet Patient's current hospital diet: AHA Diet (Heart Healthy) Discharge Diet Recommended Diet: Regular Diet Pending Studies Studies pending at discharge: no Medical Emergencies . Who to Call and When: Medical Emergencies: If at any time you feel your situation is an emergency, please call 911 immediately. . Non-Emergent Contact Non-Emergency issues call your: Primary Care Provider Call Non-Emergent contact if: temperature is above 101, your pain is not controlled . . "Provider Documentation" section prepared by Bethel Reardon. .
--- NOTE | 2018-06-03 15:06 | Discharge Summary ---
Discharge Summary Date of Service Jun 03, 2018. Discharge Summary Admission Date: Jun 02, 2018 at 07:46 Discharge Date: Jun 03, 2018 Discharge Disposition: Home Principal Diagnosis: non cardiac chest pain suspect gi Procedures: dobutamine stress test was negative for cardiac issues associated with stress Medication Reconciliation New Medications: Pantoprazole (Pantoprazole Sodium) 40 Mg Tab 40 MG PO QAM, #30 TAB Changed Medications: Rivaroxaban (Xarelto) 15 Mg Tab 15 MG PO DAILY, #30 DOSE 6 Refills (Changed from: Rivaroxaban (Xarelto) 20 Mg Tab 20 Mg PO QPM) Continued Medications: Alendronate Sodium (Fosamax) 70 Mg Tab 70 MG PO WK, TAB Amiodarone Hcl (Cordarone) 200 Mg Tab 200 MG PO QPM, TAB Artificial Tear Ointment (Eye Lubricant) 1 Oin Oin 1 APPLN OPB DIRECTED PRN for DRYNESS Carbidopa-Levodopa (Sinemet Cr 50-200 mg) 1 Tab Tab 1 TAB PO HS Carbidopa-Levodopa (Carbidopa/Levodopa Odt) 1 Tab Tab 25-250 MG PO TID PRN for PARKINSON'S CONTROL MAX 3 TABS PER 24 HOURS. Carbidopa/Levodopa (Sinemet 25MG/100MG) Tab 3 TABS PO QID, TAB GIVE AT 0600, 1000, 1400, AND 1800. Clonazepam (Klonopin) 0.5 Mg Tab 0.25 MG PO HS, TAB Donepezil Hydrochloride (Donepezil Hcl) 10 Mg Tab 10 MG PO HS Furosemide (Lasix) 40 Mg Tab 20-40 MG PO DAILY PRN for FLUID RETENTION, TAB Hydrocodone/Acetaminophen 5MG/325MG ([place] 5MG/325MG) Tab 1 TABLET PO Q6 PRN for Pain, TAB PRN PAIN Lisinopril (Prinivil) 5 Mg Tab 5 MG PO QAM, TAB Memantine (Namenda) 5 Mg Tab 5 MG PO BID, TAB TAKES AT 1000 AND AT HS Polyethylene Glycol 3350 (Miralax) 1 Pow Pow 17 GM PO DAILY PRN for Constipation, #255 GM Ranitidine (Zantac) 150 Mg Tab 150 MG PO AMPM, TAB Selegiline HCl (Selegiline HCl) 5 Mg Tab 5 MG PO AMPM Discharge Exam Review of Systems: Constitutional: No fever, No chills, No sweats, No weakness Eyes: No worsening of vision, No redness Respiratory: No cough, No sputum, No wheezing Cardiovascular: No chest pain, No edema Abdomen: No pain, No nausea, No diarrhea Musculoskeletal: No joint pain, No swelling Physical Exam: General Appearance: WD/WN, no apparent distress Eyes: normal inspection, sclerae normal Neck: supple, no carotid bruits Respiratory/Chest: chest non-tender, lungs clear, normal breath sounds Abdomen / GI: normal bowel sounds, non tender, soft Neurologic/Psychiatric: alert, oriented x 3 Hospital Course 82-year-old female with chest pain that 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 which may have been recumbent chest pain however there was some recollection by EMS that glycerin improved her pain Patient has negative serial troponin testing and negative dobutamine stress testing Given that this may been recumbent chest pain, and symptoms resolved after protonic therapy this could be reflux Regarding her Parkinson's disease will maintain her Sinemet 4 times a day and also at night for adult 5 times doses a day Regarding her atrial fibrillation she is controlled with amiodarone and anticoagulated with Xarelto these will be maintained, her xarelto dose should be 15 mg Total Time Spent: Greater than 30 minutes This includes examination of the patient, discharge planning, medication reconciliation, and communication with other providers. Discharge Instructions Please refer to the electronic Patient Visit Report (Discharge Instructions) for additional information.
--- NOTE | 2018-06-03 21:03 | DOBUTAMINE ECHO ---
*NOTICE TO RECEIVING LIBERTARIAN AGENCY This information is strictly Confidential and protected under [place] law. [place] law prohibits you from making any further disclosure of this information unless further disclosure is expressly permitted by the written consent of the person to whom it pertains or is authorized by law. A general authorization for the release of medical or other information is not sufficient for this purpose. Hospital accepts no responsibility if the information is made available to any other person, INCLUDING THE PATIENT. Interpretation Summary * Name: KEISHA CARDENAS Study Date: 06/03/2018 08:40 AM BP: 143/68 mmHg * Patient Location: C.2T\S\S229\S\1 HR: 58 * : 1935 (M/d/yy) Gender: Female Height: 63 in * Age: 82 yrs Ethnicity: CA Weight: 167 lb * Ordering Physician: Bethel Reardon * Performed By: Zee Perdomo RDCS * * Reason For Study: CHEST PAIN * BSA: 1.8 m2 * -- Conclusions -- * Dobutamine Stress Echo: * 1. Negative Dobutamine stress echo for ischemia at 92 % MPHR. * 2. Negative Dobutamine ECG for ischemia at 92 % MPHR. * 3. Appropriate blood pressure response to dobutamine. Following metoprolol administration, she did have asymptomatic hypotension which improved with small fluid bolus. * 4. No arrhythmia. * 5. No chest pain reported. * 6. Technically difficult study, enhanced with IV Definity. * Echo: * 1. Normal left ventricular size with hyperdynamic systolic function. EF > 70%. No regional wall motion abnormalities. No significant left ventricular hypertrophy. Type 1 diastolic dysfunction. * 2. Severe left atrial dilation. * 3. Echodense structure noted along the posterior mitral annulus, with some mobility, measuring approximately 1.2 x 0.8 cm. This may be extension of mitral annular calcification, but cannot rule out other etiology. * 4. There is severe mitral annular calcification. * 5. There is mild to moderate mitral regurgitation. * 6. Similar findings compared to prior study on 12/22/2016. Procedure Details * DOBUTAMINE ECHO, CPT#15870 * ECHO DOPPLER, CPT #[id number] * ECHO COLOR FLOW, CPT #[id number] * The study was technically difficult with many images being suboptimal in quality. * A contrast injection of Definity was performed to improve assessment of LV function. * Contrast was injected into an intravenous site in the left arm. * One vial of Definity ultrasound contrast was diluted in normal saline to a total volume of 10 ml. A total of '8' ml of solution was administered during imaging. * Lot # [id number] of Definity utilized for procedure. * Expiration date 05/13. * The attending nurse who injected the contrast agent was LUCERO LINDA RN. Left Ventricle * The left ventricle is normal in size. * There is normal left ventricular wall thickness. * Ejection Fraction = >70 %. * The left ventricle is hyperdynamic. * The left ventricular ejection fraction increases normally with stress. The left ventricular end-systolic cavity size reduces post-stress (normal response). The left ventricular wall motion with stress is normal. * Resting wall motion: Normal. Stress wall motion: Appropriate increase in Left ventricular systolic function and decrease in cavity size. No stress induced segmental wall motion abnormalities. Right Ventricle * The right ventricle is normal in size and function. * The right ventricular systolic function is normal as assessed by tricuspid annular plane systolic excursion (TAPSE) (normal >1.5 cm). Atria * The left atrium is severely dilated. * Right atrial size is normal. Mitral Valve * There is severe mitral annular calcification. * Large echodense structure noted along the posterior mitral annulus, with some mobility. This may be extension of mitral annular calcification, but cannot rule out other etiology. * There is no mitral valve stenosis. * There is mild to moderate mitral regurgitation. Tricuspid Valve * The tricuspid valve is not well visualized, but is grossly normal. * There is no tricuspid stenosis. * Significant tricuspid regurgitation is absent. Aortic Valve * The aortic valve is not well visualized. * No hemodynamically significant valvular aortic stenosis. * No aortic regurgitation is present. Pulmonic Valve * The pulmonic valve is not well visualized. Great Vessels * The aortic root is not well visualized. * Normal pulmonary venous flow pattern. Pericardium * There is no pericardial effusion. Stress Parameters * Sinus rhythm at 67 bpm. * Stress ECG: No ST changes. No arrhythmias. * No arrhythmia were noted with stress. * Rest heart rate was '58' BPM. * Rest blood pressure was '143/68' * Maximum heart rate achieved was 129 bpm. * Maximum heart rate was 92 % of maximum age-predicted heart rate. * Maximum blood pressure was '143/68' * Total exercise time was '12:00' * Maximum Dobutamine infusion rate was '40' mcg/kg/min. * A total of 0.5 mg of intravenous Atropine was used to supplement Dobutamine for heart rate response. * Dobutamine infusion was terminated due to achieving target heart rate * A total of 5 mg of IV Metoprolol was administered to reverse Dobutamine-induced tachycardia. * The patient exhibited chest pain during the drug infusion. * The drug infusion was stopped due to chest pain. MMode 2D Measurements and Calculations IVSd 0.93 cm LVIDd 3.7 cm LVPWd 0.76 cm IVS/LVPW 1.2 EDV(Teich) 59.4 ml EDV(cubed) 52.0 ml LV mass(C)d 90.5 grams LV mass(C)dI 50.5 grams/m\S\2 LVOT diam 1.9 cm LVOT area 2.9 cm\S\2 LVAd ap4 26.8 cm\S\2 LVLd ap4 7.2 cm EDV(MOD-sp4) 80.5 ml EDV(sp4-el) 84.7 ml LVAs ap4 9.8 cm\S\2 LVLs ap4 5.1 cm ESV(MOD-sp4) 15.8 ml ESV(sp4-el) 15.9 ml EF(MOD-sp4) 80.4 % EF(sp4-el) 81.2 % LVAd ap2 23.5 cm\S\2 LVLd ap2 6.7 cm EDV(MOD-sp2) 66.6 ml EDV(sp2-el) 69.5 ml LVAs ap2 8.9 cm\S\2 LVLs ap2 5.1 cm ESV(MOD-sp2) 12.9 ml ESV(sp2-el) 13.3 ml EF(MOD-sp2) 80.7 % EF(sp2-el) 80.9 % LVLd %diff -6.74 % EDV(MOD-bp) 76.3 ml LVLs %diff -0.90 % ESV(MOD-bp) 14.3 ml EF(MOD-bp) 81.3 % SV(MOD-sp4) 64.8 ml SI(MOD-sp4) 36.2 ml/m\S\2 SV(MOD-sp2) 53.7 ml SI(MOD-sp2) 30.0 ml/m\S\2 SV(MOD-bp) 62.1 ml SI(MOD-bp) 34.6 ml/m\S\2 SV(sp4-el) 68.8 ml SI(sp4-el) 38.4 ml/m\S\2 SV(sp2-el) 56.2 ml SI(sp2-el) 31.4 ml/m\S\2 Doppler Measurements and Calculations MV E max denny 74.4 cm/sec MV A max denny 117.6 cm/sec MV E/A 0.63 MV V2 max 119.1 cm/sec MV max PG 5.7 mmHg MV V2 mean 54.4 cm/sec MV mean PG 1.4 mmHg MV V2 VTI 36.3 cm MV P1/2t max denny 65.6 cm/sec MV P1/2t 147.2 msec MVA(P1/2t) 1.5 cm\S\2 MV dec slope 130.5 cm/sec\S\2 MV dec time 0.34 sec Ao V2 max 179.8 cm/sec Ao max PG 12.9 mmHg Ao max PG (full) 7.3 mmHg Ao V2 mean 113.6 cm/sec Ao mean PG 6.1 mmHg Ao V2 VTI 37.9 cm MARIAMA(V,A) 1.9 cm\S\2 MARIAMA(V,D) 1.9 cm\S\2 LV V1 max PG 5.6 mmHg LV V1 max 118.6 cm/sec MR max denny 554.9 cm/sec MR max PG 123.5 mmHg PA V2 max 64.2 cm/sec PA max PG 1.6 mmHg
== END 2018-06-03 16:55 | disposition home or self-care (01) ==
LOC: EDBD 05:13 → C.EDC 05:14 → C.2T 07:46 → ENRESERV 08:09
PROVIDERS: ADMIT Internal Medicine; ATTEND Internal Medicine
DX: R07.89 Other chest pain (principal); G20 Parkinson's disease; I48.91 Unspecified atrial fibrillation; E78.5 Hyperlipidemia, unspecified; M48.061 Spinal stenosis, lumbar region without neurogenic claudication; G62.9 Polyneuropathy, unspecified; Z87.891 Personal history of nicotine dependence; Z79.01 Long term (current) use of anticoagulants; Z86.19 Personal history of other infectious and parasitic diseases

== ENCOUNTER 2020-05-06 17:50 | Inpatient (IN) ==
[2020-05-06] MEDS ORDERED: ACETAMINOPHEN 1,000 MG/100 ML VIAL IV STA (18:20)
[2020-05-06] MEDS ORDERED: HYDROmorphone INJ 0.5 MG/0.5 ML SYR IV PRN (18:20)
[2020-05-06] MEDS ORDERED: ONDANSETRON INJ 2 MG/ML 2 ML VIAL IV STA (18:20)
[2020-05-06 18:46] LABS: Basophils # (auto) 0.01 K/uL (0-0.2); Basophils % (auto) 0.1 %; Eosinophils # (auto) 0.02 K/uL (0-0.5); Eosinophils % (auto) 0.2 %; Hematocrit (blood only) 41.4 % (37-47); Hemoglobin 12.8 g/dL (12.0-16.0); Immature Granulocytes # (auto) 0.02 K/uL (0.00-0.02); Immature Granulocytes % (auto) 0.2 %; Lymphocytes # (auto) 0.67 K/uL (1.2-3.4); Lymphocytes % (auto) 7.4 %; Mean Corpuscular Hemoglobin 30.1 pg (25-34); Mean Corpuscular Hgb Conc 30.9 g/dL (32-36); Mean Corpuscular Volume 97.4 fL (80-100); Monocytes # (auto) 0.65 K/uL (0.11-0.59); Monocytes % (auto) 7.2 %; Neutrophils # (auto) 7.71 K/uL (1.4-6.5); Neutrophils % (auto) 84.9 %; Platelet Count 195 K/uL (130-400); RDW Coefficient of Variation 14.7 % (11.5-14.5); RDW Standard Deviation 52.4 fL (36.4-46.3); Red Blood Count 4.25 M/uL (4.2-5.4); White Blood Count 9.08 K/uL (4.8-10.8)
[2020-05-06 18:57] LABS: Partial Thromboplastin Ratio 1.1; Partial Thromboplastin Time 31.5 Seconds (21.0-31.0)
[2020-05-06 19:03] LABS: Alanine Aminotransferase 8 U/L (12-78); Albumin Level 3.6 gm/dl (3.4-5.0); Aspartate Aminotransferase 13 U/L (15-37); BUN Creatinine Ratio 30.5 (10-20); Blood Urea Nitrogen 36 mg/dl (7-18); Calcium 9.3 mg/dl (8.5-10.1); Carbon Dioxide 29 mmol/L (21-32); Chloride 104 mmol/L (98-107); Est GFR (African American) 49.9; Est GFR (Non-African American) 43.1; Glucose 120 mg/dl (70-99); Lipase 227 U/L (73-393); Potassium 4.4 mmol/L (3.5-5.1); Sodium 138 mmol/L (136-145)
--- NOTE | 2020-05-06 19:03 | XRay Report ---
XR chest 1V portable CLINICAL HISTORY: Atypical chest pain COMPARISON STUDY: 11/01/2018 FINDINGS: The heart is at the upper limits of normal in size. There is calcification of the mitral va lve annulus. There is no failure. There is no focal pulmonary consolidation. There are no pleural eff usions. Arthritic changes are present within the shoulders.[ IMPRESSION: No active disease in the chest. ACT 112: Negative or not required by law. Electronically signed by: Norris Jasso M.D. 05/06/2020 7:01 PM
[2020-05-06 19:08] LABS: Alkaline Phosphatase 151 U/L (45-117); Bilirubin,Total 0.9 mg/dl (0.2-1); Creatine Kinase 35 U/L (26-192); Creatine Kinase MB < 1.0 ng/ml (0.5-3.6); Globulin 3.5 gm/dl (2.5-4.0); Total Protein 7.1 gm/dl (6.4-8.2); Troponin I < 0.015 ng/ml (0-0.045)
[2020-05-06 19:14] LABS: iSTAT Creatinine 1.2 mg/dl (0.6-1.3); iSTAT Hemoglobin 13.3 g/dl (12.0-16.0); iSTAT Ionized Calcium 1.25 mmol/l (1.12-1.32); iSTAT Potassium 4.5 mmol/L (3.3-5.0)
[2020-05-06] MEDS ORDERED: IOVERSOL 100ml IV PRN (20:19)
[2020-05-06 20:45] LABS: Appearance Urine Clear (Clear); Bilirubin Urine Negative (Negative); Blood Urine Negative (Negative); Color Urine Yellow; Glucose Urine UA Negative (Negative); Ketones Urine Trace (Negative); Leukocyte Esterase Urine Negative (Negative); Nitrite Urine Negative (Negative); Protein Urine Negative (Negative); Specific Gravity Urine 1.028 (1.000-1.030); Urobilinogen Urine Negative (Negative)
[2020-05-06] MEDS ORDERED: cefOXitin 2,000 MG/60 ML BAG IV STA (21:08)
--- NOTE | 2020-05-06 22:13 | Surgery Consultation ---
Date of Consultation May 06, 2020 Assessment & Plan (1) Cholecystitis: -due to medical comorbidities pt. will be admitted by medical service -she has underlying hx. of afib and takes Xarelto: -pt. will require medical evaluation prior to consideration of surgery -she will need to discontinue Xarelto for minimum of 2 days prior to surgery -due to slight dilation of CBD, consideration should be given to obtaining MRCP and if concern for choledocholithiasis GI consult may be necessary -recommend initiated abx. -phone discussion with daughter Madeline History of Present Illness History of Present Illness 84 year old female presented to [facility] ED due to abdominal pain. She has underlying dementia, therefore subjective data was limited. History was supplemented with conversation with ED physician and her daughter by phone. The patient noted generalized abdominal pain shortly after lunch today. No fevers noted. The pain did not radiate and no palliative or provocative factors noted. She had nausea but no vomiting. In the ED she was afebrile with normal WBC. Abdominal imaging showed concern for cholecystitis as a slight dilation of the CBD. At the time of my exam she was in no distress. Allergies Allergy/AdvReac Type Severity Reaction Status Date / Time succinylcholine Allergy Severe PSEUDO-CHOLINESTERASE Verified 05/06/20 21:48 DEFICIENCY Home Medications Home Medications Medication Instructions Recorded Confirmed Type polyethylene glycol 3350 [Miralax] 17 g PO DAILY PRN 11/01/18 05/06/20 History white petrolatum-mineral oil 1 applic OPB UD PRN 11/01/18 05/06/20 History [Artificial Tears (kathy/min)] miscellaneous medical supply #1 ea 07/15/19 03/29/20 Rx miscellaneous medical supply #200 ea 08/18/19 03/29/20 Rx carbidopa ER 50 mg-levodopa 200 mg 1 tab PO BID 90 Days #180 tab 10/03/19 05/06/20 Rx tablet,extended release alendronate 70 mg tablet 70 mg PO WK #12 tab 11/24/19 05/06/20 Rx amiodarone 200 mg tablet 200 mg PO QPM #90 tab 11/24/19 05/06/20 Rx furosemide 40 mg tablet 20 mg PO DAILY #45 tab 11/24/19 05/06/20 Rx memantine 10 mg tablet 10 mg PO BID #180 tab 12/12/19 05/06/20 Rx carbidopa 25 mg-levodopa 250 mg 1 tab PO TID PRN 90 Days #270 tab 01/11/20 05/06/20 Rx disintegrating tablet carbidopa 25 mg-levodopa 100 mg 3 tab PO QID 90 Days #1080 tab 03/08/20 05/06/20 Rx tablet trazodone 50 mg tablet 25 mg PO HS #15 tab 03/15/20 05/06/20 Rx donepezil 10 mg tablet 10 mg PO HS 90 Days #90 tab 03/27/20 05/06/20 Rx clonazepam 0.5 mg disintegrating 0.5 mg PO HS 30 Days #30 tab 04/03/20 05/06/20 Rx tablet miscellaneous medical supply #1 ea 04/17/20 Rx escitalopram oxalate 15 mg PO DAILY 05/06/20 05/06/20 History rivaroxaban [Xarelto] 15 mg PO HS 05/06/20 05/06/20 History Patient History Social History Preferred Language: Greek Visual Impairment: No Limitations Hearing Ability: Normal marital status: Current Living Situation: Spouse and Family current occupational status: retired 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 ambulates with walker Constitutional: no fever Respiratory: no dyspnea Cardiovascular: no chest pain Gastrointestinal: + abdominal pain and + nausea; no vomiting Physical Exam Constitutional: well developed and well nourished; no acute distress Eyes: no conjunctival abnormality ENMT: Ears: no hearing impairment Neck: trachea midline Respiratory: normal respiratory effort; no respiratory distress and no labored breathing slight decrease of BS noted at bases Cardiovascular: Rate/Rhythm: regular rate and regular rhythm Gastrointestinal (Abdomen): abdomen is soft; BS are hypoactive; pain with palpation greatest in RUQ with (+) Roach's sign Musculoskeletal: no calf pain Skin: no rashes, warm and dry bandage noted on right posterior forearm Neurologic: moves all extremities Psychiatric: Orientation: alert and oriented to person Affect: + flat affect Results & Data Vital Signs (Past 12 Hours) Vital Signs Temp Pulse Pulse Resp BP BP Pulse Ox 05/06/20 21:40 62 20 171/80 H 99 05/06/20 20:35 63 20 185/84 H 98 05/06/20 19:15 52 L 52 L 20 161/73 H 95 05/06/20 19:04 58 L 15 181/86 H 97 05/06/20 17:59 36.8 C 116 H 19 180/90 H 98 PG Care Time/CCT Total # of Minutes Spent Total Time Spent with Patient: Total time spent is greater than 50% in coordination of care (as documented) at patient's floor/unit and/or counseling patient: Coding Level of Care Code 43084 Inpt Consult Level 5 Diagnoses Cholecystitis K81.9
--- NOTE | 2020-05-06 23:21 | History & Physical Report ---
Date of Service May 06, 2020 Assessment & Plan (1) Cholecystitis: Patient afebrile, HD stable, NAD and non-toxic in appearance. Elevated AP and mild dilatation of CBD. Patient with history of AF on Xarelto anticoagulation, last dose was 05/05/20 PM. -Admit to medical floor -Check MRCP. GI consultation pending results of study -Repeat LFTs in AM -Follow cultures -Zosyn 3.375gm IV q 8 -General Surgery consult appreciated -Continue to hold Xarelto Present on Admission?: Yes (2) T11 vertebral fracture: Incidentally discovered T11 fracture, stable with no neurological involvement. Patient denies back pain. No history of trauma -Pain control as above -Continue to monitor -Continue Alendronate for osteoporosis Present on Admission?: Yes (3) Atrial fibrillation: Presently in sinus bradycardia. Anticoagulated with [id number] po qHS, last dose 05/05/20 PM -Continue Amiodarone at home dose. Patient follows with Cardiology. May consider dose reduction given bradycardia -Hold Xarelto Present on Admission?: Yes (4) Parkinsons: Parkinsons with dementia -Continue Carbidopa-Levodopa at home dose -Continue Aricept and Namenda -Frequent orientation and delirium prevention strategies with frequent orientation, maintenance of sleep/wake cycles and ambulation Present on Admission?: Yes (5) Dementia: Chronic. Patient oriented x 1 -Continue Aricept, Namenda -Delirium prevention measures as above Present on Admission?: Yes (6) Anxiety: Chronic -Continue Escitalopram 15mg po daily -Klonopin 0.5mg po qHS Present on Admission?: Yes (7) Bradycardia: As above, patient on Amiodarone 200mg po daily. She denies dizziness/SOB/CP -Continue Amiodarone for now -Consider dose reduction F/E/N - gentle IVF, monitor electrolytes Mg and Po4 pending, NPO for now Ppx - low risk for dvt Code - DNR/DNI Dispo - Admit to medical floor Present on Admission?: Yes Admission and Anticipated Discharge Date Admission Date: 05/06/20 Anticipated date of discharge: 05/08/20 History of Present Illness Chief Complaint: RUQ pain Primary Care Provider: Edwige Mason, DO Patient with underlying dementia and is unable to provide clear details of the events preceding hospital arrival - history obtained mainly through discussion with ER staff and review of the chart. Daphnie Banks is an 84yo C female with history of AF on Xarelto anticoagulation, HTN/HLP/CHF and Dementia. She presents today with complaint of RUQ pain that began acutely after lunch this afternoon. She also had some nausea, no vomiting or diarrhea reported. When she arrived to the ER she was found to be afebrile, hypertensive otherwise hemodynamically stable, NAD. Laboratory workup largely unremarkable, elevated AP to 151, normal bilirubin and WBC. A RUQUS and CT Abdomen and Pelvis was obtained which revealed acute cholecystitis, possible dilatation of the CBD to 1.2cm per report on US. Also with incidental finding of acute/subacute osteophyte fracture at T11-T12 through T11. Patient complaining of some discomfort in her abdomen, otherwise no complaints. ER Course: Tylenol. Zofran. Dilaudid. Cefoxitin Allergies Allergy/AdvReac Type Severity Reaction Status Date / Time succinylcholine Allergy Severe PSEUDO-CHOLINESTERASE Verified 05/06/20 21:48 DEFICIENCY Home Medications Home Medications Medication Instructions Recorded Confirmed Type polyethylene glycol 3350 [Miralax] 17 g PO DAILY PRN 11/01/18 05/06/20 History white petrolatum-mineral oil 1 applic OPB UD PRN 11/01/18 05/06/20 History [Artificial Tears (kathy/min)] miscellaneous medical supply #1 ea 07/15/19 03/29/20 Rx miscellaneous medical supply #200 ea 08/18/19 03/29/20 Rx carbidopa ER 50 mg-levodopa 200 mg 1 tab PO BID 90 Days #180 tab 10/03/19 05/06/20 Rx tablet,extended release alendronate 70 mg tablet 70 mg PO WK #12 tab 11/24/19 05/06/20 Rx amiodarone 200 mg tablet 200 mg PO QPM #90 tab 11/24/19 05/06/20 Rx furosemide 40 mg tablet 20 mg PO DAILY #45 tab 11/24/19 05/06/20 Rx memantine 10 mg tablet 10 mg PO BID #180 tab 12/12/19 05/06/20 Rx carbidopa 25 mg-levodopa 250 mg 1 tab PO TID PRN 90 Days #270 tab 01/11/20 05/06/20 Rx disintegrating tablet carbidopa 25 mg-levodopa 100 mg 3 tab PO QID 90 Days #1080 tab 03/08/20 05/06/20 Rx tablet trazodone 50 mg tablet 25 mg PO HS #15 tab 03/15/20 05/06/20 Rx donepezil 10 mg tablet 10 mg PO HS 90 Days #90 tab 03/27/20 05/06/20 Rx clonazepam 0.5 mg disintegrating 0.5 mg PO HS 30 Days #30 tab 04/03/20 05/06/20 Rx tablet miscellaneous medical supply #1 ea 04/17/20 Rx escitalopram oxalate 15 mg PO DAILY 05/06/20 05/06/20 History rivaroxaban [Xarelto] 15 mg PO HS 05/06/20 05/06/20 History Past Med/Surg History Social History Preferred Language: Latvian Visual Impairment: No Limitations Hearing Ability: Normal marital status: Current Living Situation: Spouse and Family current occupational status: retired 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[employer] Feels Safe at Home: Yes Smoking Status: Never smoker Second Hand Exposure: No ; Hx Alcohol Use: No Hx Substance Use: No caffeine: No Dental Care, Regularly: No Physical Activity Frequency: Does not Exercise Seatbelt Use: always Review of Systems Review of Systems: All systems reviewed & are unremarkable except as noted in HPI & below Physical Exam Physical Exam: General: patient resting, mildly uncomfortable but NAD, non- toxic in appearance, baseline dementia - AA&O to self Skin: warm, dry, intact, no rashes or lesions HEENT: NC/AT, PERRL, EOMI, anicteric sclera, conjunctiva without injection, external ear normal to inspection and nontender, nares patent, moist mucus membranes, dentition intact, no oropharyngeal lesions, neck supple, trachea midline, no LAD, no thyromegaly, no JVD Heart: +S1/S2, regular, bradycardic, no m/r/g Lungs: equal air entry bilaterally, no rales/rhonchi/wheezes Abd: +BS, soft, ND, tenderness in RUQ with +Roach's sign, no masses/organomegaly/ascites Ext: warm, 2+ pulses in UE/LE bilaterally, no clubbing/cyanosis or edema Neuro: nonfocal, patient AA&O to self, speech intact, no facial droop, moving all extremities on command with equal strength 5/5 Results & Data Results & Data ([facility]) Vital Signs (Past 12 Hours) Vital Signs Temp Pulse Pulse Resp BP BP Pulse Ox 05/06/20 22:56 56 L 20 158/96 H 98 05/06/20 22:30 60 20 193/84 H 98 05/06/20 21:40 62 20 171/80 H 99 05/06/20 20:35 63 20 185/84 H 98 05/06/20 19:15 52 L 52 L 20 161/73 H 95 05/06/20 19:04 58 L 15 181/86 H 97 05/06/20 17:59 36.8 C 116 H 19 180/90 H 98 Laboratory Results Lab Results 05/06/20 05/06/20 05/06/20 Range/Units 18:40 18:40 18:40 WBC 9.08 (4.8-10.8) K/uL RBC 4.25 (4.2-5.4) M/uL Hgb 12.8 (12.0-16.0) g/dL POC Hgb (12.0-16.0) g/dl Hct 41.4 (37-47) % POC Hct (37-47) % MCV 97.4 (80-100) fL MCH 30.1 (25-34) pg MCHC 30.9 L (32-36) g/dL RDW Std Deviation 52.4 H (36.4-46.3) fL RDW Coeff of Elizabeth 14.7 H (11.5-14.5) % Plt Count 195 (130-400) K/uL MPV 11.0 H (7.4-10.4) fL Immature Gran % (Auto) 0.2 % Neut % (Auto) 84.9 % Lymph % (Auto) 7.4 % Granite % (Auto) 7.2 % Eos % (Auto) 0.2 % Baso % (Auto) 0.1 % Neut # (Auto) 7.71 H (1.4-6.5) K/uL Lymph # (Auto) 0.67 L (1.2-3.4) K/uL Granite # (Auto) 0.65 H (0.11-0.59) K/uL Eos # (Auto) 0.02 (0-0.5) K/uL Baso # (Auto) 0.01 (0-0.2) K/uL Immature Gran # (Auto) 0.02 (0.00-0.02) K/uL PT 11.0 (9.0-12.0) Seconds INR 1.0 (0.9-1.1) APTT 31.5 H (21.0-31.0) Seconds PTT Ratio 1.1 POC Sodium (135-144) mmol/L Sodium 138 (136-145) mmol/L POC Potassium (3.3-5.0) mmol/L Potassium 4.4 (3.5-5.1) mmol/L POC Chloride (101-112) mmol/L Chloride 104 (98-107) mmol/L Carbon Dioxide 29 (21-32) mmol/L POC Total CO2 (24-31) mmol/L Anion Gap 5.0 (3-11) POC Anion Gap (16-25) mmol/L POC BUN (7-18) mg/dl BUN 36 H (7-18) mg/dl Creatinine 1.17 (0.6-1.2) mg/dl POC Creatinine (0.6-1.3) mg/dl Est Cr Clr Drug Dosing Not Reportable Est GFR ( Amer) 49.9 Est GFR (Non-Af Amer) 43.1 BUN/Creatinine Ratio 30.5 H (10-20) Glucose 120 H (70-99) mg/dl POC Glucose (other) (70-99) mg/dl Calcium 9.3 (8.5-10.1) mg/dl POC Ioniz Calcium Yessenia (1.12-1.32) mmol/l Total Bilirubin 0.9 (0.2-1) mg/dl AST 13 L (15-37) U/L ALT 8 L (12-78) U/L Alkaline Phosphatase 151 H (45-117) U/L Total Creatine Kinase 35 (26-192) U/L CK-MB (CK-2) < 1.0 (0.5-3.6) ng/ml CK/CKMB % Calc TNP Troponin I < 0.015 (0-0.045) ng/ml Total Protein 7.1 (6.4-8.2) gm/dl Albumin 3.6 (3.4-5.0) gm/dl Globulin 3.5 (2.5-4.0) gm/dl Albumin/Globulin Ratio 1.0 (0.9-2) Lipase 227 (73-393) U/L Urine Color Urine Appearance (Clear) Urine pH (4.5-7.5) Ur Specific [place] (1.000-1.030) Urine Protein (Negative) Urine Glucose (UA) (Negative) Urine Ketones (Negative) Urine Blood (Negative) Urine Nitrite (Negative) Urine Bilirubin (Negative) Urine Urobilinogen (Negative) Ur Leukocyte Esterase (Negative) 05/06/20 05/06/20 Range/Units 19:02 20:22 WBC (4.8-10.8) K/uL RBC (4.2-5.4) M/uL Hgb (12.0-16.0) g/dL POC Hgb 13.3 (12.0-16.0) g/dl Hct (37-47) % POC Hct 39 (37-47) % MCV (80-100) fL MCH (25-34) pg MCHC (32-36) g/dL RDW Std Deviation (36.4-46.3) fL RDW Coeff of Elizabeth (11.5-14.5) % Plt Count (130-400) K/uL MPV (7.4-10.4) fL Immature Gran % (Auto) % Neut % (Auto) % Lymph % (Auto) % Granite % (Auto) % Eos % (Auto) % Baso % (Auto) % Neut # (Auto) (1.4-6.5) K/uL Lymph # (Auto) (1.2-3.4) K/uL Granite # (Auto) (0.11-0.59) K/uL Eos # (Auto) (0-0.5) K/uL Baso # (Auto) (0-0.2) K/uL Immature Gran # (Auto) (0.00-0.02) K/uL PT (9.0-12.0) Seconds INR (0.9-1.1) APTT (21.0-31.0) Seconds PTT Ratio POC Sodium 138 (135-144) mmol/L Sodium (136-145) mmol/L POC Potassium 4.5 (3.3-5.0) mmol/L Potassium (3.5-5.1) mmol/L POC Chloride 100 L (101-112) mmol/L Chloride (98-107) mmol/L Carbon Dioxide (21-32) mmol/L POC Total CO2 28 (24-31) mmol/L Anion Gap (3-11) POC Anion Gap 16.0 (16-25) mmol/L POC BUN 38 H (7-18) mg/dl BUN (7-18) mg/dl Creatinine (0.6-1.2) mg/dl POC Creatinine 1.2 (0.6-1.3) mg/dl Est Cr Clr Drug Dosing Est GFR ( Amer) Est GFR (Non-Af Amer) BUN/Creatinine Ratio (10-20) Glucose (70-99) mg/dl POC Glucose (other) 124 H (70-99) mg/dl Calcium (8.5-10.1) mg/dl POC Ioniz Calcium [place] 1.25 (1.12-1.32) mmol/l Total Bilirubin (0.2-1) mg/dl AST (15-37) U/L ALT (12-78) U/L Alkaline Phosphatase (45-117) U/L Total Creatine Kinase (26-192) U/L CK-MB (CK-2) (0.5-3.6) ng/ml CK/CKMB % Calc Troponin I (0-0.045) ng/ml Total Protein (6.4-8.2) gm/dl Albumin (3.4-5.0) gm/dl Globulin (2.5-4.0) gm/dl Albumin/Globulin Ratio (0.9-2) Lipase (73-393) U/L Urine Color Yellow Urine Appearance Clear (Clear) Urine pH 6.0 (4.5-7.5) Ur Specific [place] 1.028 (1.000-1.030) Urine Protein Negative (Negative) Urine Glucose (UA) Negative (Negative) Urine Ketones Trace H (Negative) Urine Blood Negative (Negative) Urine Nitrite Negative (Negative) Urine Bilirubin Negative (Negative) Urine Urobilinogen Negative (Negative) Ur Leukocyte Esterase Negative (Negative) Diagnostic Findings Abdominal US - Per STAT-RAD: Cholelithiasis, gallbladder wall thickening and pericholecystic fluid concerning for acute cholecystitis. Dilated common bile duct for patient age measuring 1.2cm. Correlate for biliary stasis. Consider MRCP as indicate. Hepatomegaly. No hydronephrosis of the right kidney. CT Abdomen and Pelvis with contrast: Acute/subacute fracture through the anterior bridging osteophyte at T11-T12 and extending into the T11 inferior endplate. No retropulsion. No visible extension to the posterior elements. Gallbladder distention and wall thickening with cholelithiasis concerning for acute cholecystitis. Clinical/sonographic correlation recommended. Common bile duct appears normal in caliber for age. Trace right pleural effusion. Atelectasis at the lung bases. Mild periportal edema and trace perihepatic ascites. Liver is otherwise unremarkable. Spleen is normal. Pancreas is atrophic. Right adrenal gland is normal. Stable thickening of left adrenal gland. Symmetric renal enhancement. No hydronephrosis. Aortoiliac atherosclerosis without aneurysm. No bowel obstruction or inflammation. Colonic diverticulosis without acute diverticulitis. Appendix not identified. Uterus and urinary bladder are unremarkable. Postsurgical changes of the spine consisting of posterior decompression and posterior osteometallic fusion from L3-S1. Interbody fusion has been performed at L4-L5 ECG Additional Comments: EKG with SB at 53, normal axis, HA=665, KVU=071, CIu=951, no acute ischemic changes. Similar in appearance to prior EKG Code Status & VTE Plan Code Status DNR/DNI PG Care Time/CCT Total # of Minutes Spent Total Time Spent with Patient: Total time spent is greater than 50% in coordination of care (as documented) at patient's floor/unit and/or counseling patient: Coding Level of Care Code 48622 Initial Inpt Care Lvl 3 Diagnoses Cholecystitis K81.9 T11 vertebral fracture S22.089A Encounter type: initial encounter Fracture type: closed Fracture morphology: unspecified fracture morphology Atrial fibrillation I48.0 Atrial fibrillation type: paroxysmal Parkinsons G20 Dementia G20; F02.80 Dementia type: Parkinson's disease Dementia behavioral disturbance: without behavioral disturbance Anxiety F41.9 Bradycardia R00.1 (1) Atrial fibrillation Atrial fibrillation type: paroxysmal Qualified Code(s): I48.0 - Paroxysmal atrial fibrillation (2) Dementia Dementia type: Parkinson's disease Dementia behavioral disturbance: without behavioral disturbance Qualified Code(s): G20 - Parkinson's disease; F02.80 - Dementia in other diseases classified elsewhere without behavioral disturbance (3) T11 vertebral fracture Encounter type: initial encounter Fracture type: closed Fracture morphology: unspecified fracture morphology Qualified Code(s): S22.089A - Unspecified fracture of T11-T12 vertebra, initial encounter for closed fracture
[2020-05-07] MEDS ORDERED: ONDANSETRON INJ 2 MG/ML 2 ML VIAL IV PRN (00:05)
[2020-05-07] MEDS ORDERED: POLYETHYLENE (MIRALAX) 17 GM PACK PO PRN (00:05)
[2020-05-07] MEDS ORDERED: DOCUSATE SODIUM 100 MG CAP PO PRN (00:05)
[2020-05-07] MEDS ORDERED: ACETAMINOPHEN 325 MG TAB PO PRN (00:05)
[2020-05-07] MEDS ORDERED: ARTIFICIAL TEARS OP OINT 3.5 GM TUBE OPB PRN (00:05)
[2020-05-07] MEDS ORDERED: SODIUM CHLORIDE 0.9% 1000ML 1,000 ML IV SCH (00:05)
[2020-05-07] MEDS ORDERED: PIPERACILL/TAZOBAC CONSULT ACTIVE PRN (00:05)
[2020-05-07] MEDS ORDERED: MoRPHine SULFATE 2 MG/ML CARP IV PRN (00:05)
[2020-05-07] MEDS: PATIENT'S HEIGHT AND/OR WEIGHT NEEDED SCH ×2 (00:20→00:22)
[2020-05-07] MEDS: clonazePAM 0.5 MG TAB PO SCH ×2 (00:27→21:42)
[2020-05-07] MEDS ORDERED: CARBIDOPA/LEVODOPA 25/100MG TAB PO PRN (00:45)
[2020-05-07 00:54] LABS: Magnesium 2.2 mg/dl (1.8-2.4)
[2020-05-07] MEDS ORDERED: PIPERACILLIN/TAZOBACTAM 3.375 GM in DEXTROSE 5% 100 ML IV ONE (01:00)
--- NOTE | 2020-05-07 01:48 | Emergency Department Note ---
History of Present Illness General Chief complaint: Abdominal Pain Stated complaint: ABD PAIN, WEAKNESS Time Seen by Provider: 05/06/20 18:15 Source: patient, RN notes reviewed and old records reviewed Mode of arrival: ambulatory Limitations: no limitations History of Present Illness Provider complaint: RUQ abd pain Onset (ago): hour(s) 5 Location: abdomen Radiation: back Severity: moderate Pain Consistency: + intermittent Maximum Pain Intensity: 2 Current Pain Intensity: 2 Quality: + stabbing Relieved By: + immobilization Exacerbated By: + eating and + movement Associated symptoms: + denies other symptoms; no chest pain, no fever/chills, no nausea/vomiting and no shortness of breath Treatments prior to arrival: none This is an 84-year-old female who presents emergency department complaining of right upper quadrant abdominal pain. The patient reports she was eating lunch this afternoon when approximately an hour later the pain started. The patient reports the pain radiates into her back. She describes the pain as stabbing. She reports taking a deep breath as well as eating makes the pain worse. She reports immobilization makes the pain better. She reports she still has her gallbladder. Home Medications Home Medications Medication Instructions Recorded Confirmed Type polyethylene glycol 3350 [Miralax] 17 g PO DAILY PRN 11/01/18 05/06/20 History white petrolatum-mineral oil 1 applic OPB UD PRN 11/01/18 05/06/20 History [Artificial Tears (kathy/min)] miscellaneous medical supply #1 ea 07/15/19 03/29/20 Rx miscellaneous medical supply #200 ea 08/18/19 03/29/20 Rx carbidopa ER 50 mg-levodopa 200 mg 1 tab PO BID 90 Days #180 tab 10/03/19 05/06/20 Rx tablet,extended release alendronate 70 mg tablet 70 mg PO WK #12 tab 11/24/19 05/06/20 Rx amiodarone 200 mg tablet 200 mg PO QPM #90 tab 11/24/19 05/06/20 Rx furosemide 40 mg tablet 20 mg PO DAILY #45 tab 11/24/19 05/06/20 Rx memantine 10 mg tablet 10 mg PO BID #180 tab 12/12/19 05/06/20 Rx carbidopa 25 mg-levodopa 250 mg 1 tab PO TID PRN 90 Days #270 tab 01/11/20 05/06/20 Rx disintegrating tablet carbidopa 25 mg-levodopa 100 mg 3 tab PO QID 90 Days #1080 tab 03/08/20 05/06/20 Rx tablet trazodone 50 mg tablet 25 mg PO HS #15 tab 03/15/20 05/06/20 Rx donepezil 10 mg tablet 10 mg PO HS 90 Days #90 tab 03/27/20 05/06/20 Rx clonazepam 0.5 mg disintegrating 0.5 mg PO HS 30 Days #30 tab 04/03/20 05/06/20 Rx tablet miscellaneous medical supply #1 ea 04/17/20 Rx escitalopram oxalate 15 mg PO DAILY 05/06/20 05/06/20 History rivaroxaban [Xarelto] 15 mg PO HS 05/06/20 05/06/20 History Allergies Allergy/AdvReac Type Severity Reaction Status Date / Time succinylcholine Allergy Severe PSEUDO-CHOLINESTERASE Verified 05/06/20 21:48 DEFICIENCY Past Med/Surg History Medical History Anxiety Arthritis Atrial fibrillation Bradycardia Chronic lower back pain Constipation Dementia Gastro-esophageal reflux Hearing loss History of Clostridioides difficile colitis Hyperlipidemia Hyperparathyroidism Hypertension Macular degeneration Mitral regurgitation Neuropathy Osteoporosis Parkinsons Spinal stenosis of lumbar region with radiculopathy Urinary incontinence Venous insufficiency Venous stasis dermatitis Vitamin D deficiency disease Surgical History History of abdominal surgery REMOVED A TUMOR WITH A BLEEDING ULCER(BENIGN) History of cataract surgery History of knee replacement, total History of lumbar fusion Hx of varicose vein ligation Status post repair of nerve NEUROPLASTY DECOMPRESSION MEDIAN NERVE AT CARPAL TUNNEL, LEFT-HAND Family History Mother Cancer Brain cancer Hypertension Brother Colon cancer Heart disease Colorectal cancer Father Myocardial infarction Hypertension Sister Colorectal cancer Sister Colorectal cancer Family/Other Breast cancer Daughter Thyroid cancer Denies family history of Ovarian cancer Prostate cancer Social History Preferred Language: [place] Visual Impairment: No Limitations Hearing Ability: Normal marital status: Current Living Situation: Spouse and Family current occupational status: retired 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 Feels Safe at Home: Yes Smoking Status: Never smoker Second Hand Exposure: No ; Hx Alcohol Use: No Hx Substance Use: No caffeine: No Dental Care, Regularly: No Physical Activity Frequency: Does not Exercise Seatbelt Use: always Review of Systems A total of 10 systems reviewed and were otherwise negative Physical Exam Vital Signs Vital Signs - 24 hr 05/06/20 17:59 05/06/20 19:04 05/06/20 19:15 Temperature 36.8 C Temperature Source Oral Pulse Rate 116 H 52 L Pulse Rate [Apical] 58 L 52 L Respiratory Rate 19 15 20 Respiratory Effort / Characteristics Non-Labored Spontaneous Respiratory Depth Normal Normal Respiratory Pattern Regular Blood Pressure 180/90 H Blood Pressure [Left Arm] 181/86 H 161/73 H Blood Pressure Mean 120 Blood Pressure Mean [Left Arm] 117 102 Pulse Oximetry 98 97 95 Oxygen Delivery Method Room Air Room Air Sepsis Recent Fever Within 48 Hours No Sepsis New/Unexplained Change in Mental Status No Sepsis Action Taken by Nursing No Action Required 05/06/20 20:35 05/06/20 21:40 05/06/20 22:30 Temperature Temperature Source Pulse Rate Pulse Rate [Apical] 63 62 60 Respiratory Rate 20 20 20 Respiratory Effort / Characteristics Respiratory Depth Respiratory Pattern Blood Pressure Blood Pressure [Left Arm] 185/84 H 171/80 H 193/84 H Blood Pressure Mean Blood Pressure Mean [Left Arm] 117 110 120 Pulse Oximetry 98 99 98 Oxygen Delivery Method Room Air Sepsis Recent Fever Within 48 Hours Sepsis New/Unexplained Change in Mental Status Sepsis Action Taken by Nursing 05/06/20 22:56 Temperature Temperature Source Pulse Rate Pulse Rate [Apical] 56 L Respiratory Rate 20 Respiratory Effort / Characteristics Respiratory Depth Respiratory Pattern Blood Pressure Blood Pressure [Left Arm] 158/96 H Blood Pressure Mean Blood Pressure Mean [Left Arm] 116 Pulse Oximetry 98 Oxygen Delivery Method Room Air Sepsis Recent Fever Within 48 Hours Sepsis New/Unexplained Change in Mental Status Sepsis Action Taken by Nursing VITAL SIGNS - Vital signs and nursing notes were reviewed. GENERAL - 84-year-old female appearing stated age who is in no acute distress. Communicates well with provider and answers questions appropriately. SKIN - Without rashes. HEAD - NC/AT. EYES - PERRL with EOMI bilaterally. Sclera anicteric. Palpebral conjunctiva pink and moist with no injection noted. EARS - No deformities of external structures noted on gross examination bilaterally. No pain elicited with palpation of the tragus bilaterally. External auditory canals without discharge or otorrhea. Tympanic membranes pearly stephens without retraction or bulging. No fluid or purulent material visualized behind the TM. Handle of malleus, umbo, cone of light, pars tensa/flaccid all easily visualized. NOSE - Midline and without cyanosis. No epistaxis or purulent drainage noted. Septum midline without deviation or septal hematoma noted. MOUTH/OROPHARYNX - Without perioral cyanosis. Buccal mucosa pink and moist and without leukoplakia. Tongue midline with equal elevation of palate bilaterally. No tonsillar hypertrophy, erythema, or exudates noted. dentition noted. NECK - Neck with FROM. Supple to palpation. lymphadenopathy noted. No nuchal rigidity. LUNGS - Chest wall symmetric without accessory muscle use, intercostals retractions, or central cyanosis. Normal vesicular breath sounds CTA B/L. No wheezes, rales, or rhonchi appreciated. CARDIAC - RRR with S1/S2. No murmur, rubs, or gallops appreciated. ABDOMEN - Abdominal contour without pulsations or visible masses. Tender in RUQ. No tenderness, palpable masses, hepatosplenomegaly, or ascites noted. EXTREMITIES - No clubbing or peripheral cyanosis. No pretibial edema present. +3/5 radial, posterior tibial, and dorsalis pedis pulses palpated throughout. +5/5 strength noted in UE/LE bilaterally. NEUROLOGIC - Cranial nerves II through XII grossly intact. Sensory intact to light touch throughout. Patellar reflexes +2/4. PSYCH - A&Ox3 and cooperates fully with examiner. Pt is very pleasant and interacts well with examiner. Course Administered Medications Clonazepam (Klonopin) 0.5 mg PO HS DEANNE Stop: 06/06/20 00:59 Last Admin: 05/07/20 00:27 Dose: 0.5 mg Documented by: [id number] Sodium Chloride (Nss 1000ml) 1,000 mls @ 75 mls/hr IV .[id number] DEANNE Stop: 05/07/20 13:24 Last Infusion: 05/07/20 01:17 Dose: 75 mls/hr Documented by: [id number] Infusion: 05/07/20 00:42 Dose: 0 mls/hr Documented by: [id number] Admin: 05/07/20 00:27 Dose: 75 mls/hr Documented by: [id number] Ioversol (Optiray 320 100ml) 94 ml IV ONCE PRN PRN Reason: Interaction Checking Stop: 05/10/20 20:18 Last Admin: 05/06/20 20:19 Dose: 94 ml Documented by: [id number] Discontinued Medications Hydromorphone HCl (Dilaudid) 0.25 mg IV Q15M PRN PRN Reason: Pain Stop: 05/20/20 18:19 Last Admin: 05/06/20 19:06 Dose: 0.25 mg Documented by: [id number] Acetaminophen (Ofirmev) 1,000 mg in 100 mls @ 400 mls/hr IV NOW STA Stop: 05/06/20 18:34 Last Infusion: 05/06/20 19:28 Dose: 0 mls/hr Documented by: [id number] Admin: 05/06/20 19:00 Dose: 400 mls/hr Documented by: [id number] Cefoxitin Sodium (Mefoxin) 2,000 mg in 60 mls @ 100 mls/hr IV NOW STA Stop: 05/06/20 21:43 Last Infusion: 05/06/20 22:23 Dose: 0 mls/hr Documented by: [id number] Admin: 05/06/20 21:36 Dose: 100 mls/hr Documented by: [id number] Piperacillin Sod/Tazobactam (Sod 3.375 gm/ Dextrose) 115 mls @ 230 mls/hr IV NOW ONE; Protocol Stop: 05/07/20 01:29 Last Infusion: 05/07/20 01:12 Dose: 0 mls/hr Documented by: [id number] Admin: 05/07/20 00:42 Dose: 230 mls/hr Documented by: [id number] Miscellaneous (Patient's Height And/Or Weight Needed) 1 ea N/A Q30M [facility] Stop: 05/07/20 02:46 Last Admin: 05/07/20 00:22 Dose: Not Given Documented by: [id number] Admin: 05/07/20 00:22 Dose: Not Given Documented by: [id number] Admin: 05/07/20 00:22 Dose: Not Given Documented by: [id number] Admin: 05/07/20 00:22 Dose: Not Given Documented by: [id number] Admin: 05/07/20 00:22 Dose: Not Given Documented by: [id number] Admin: 05/07/20 00:20 Dose: 1 ea Documented by: [id number] Ondansetron HCl (Zofran) 4 mg IV NOW STA Stop: 05/06/20 18:21 Last Admin: 05/06/20 19:00 Dose: 4 mg Documented by: [id number] Medical Decision Making Differential Diagnosis Appendicitis, ovarian cyst, ovarian torsion, ectopic , TOA, PID, infections, diverticulitis, UTI, obstruction, mesenteric ischemia, aortic pathology, inflammatory bowel disease, renal colic, PUD, pancreatitis, biliary pathology, hernia, volvulus, constipation, as well as other pathologies. Medical Records Attestation: I reviewed the patient's medical records. Home Medications Current Medication List: was personally reviewed by me Laboratory Data Attestation: I reviewed the patient's lab results. Result diagrams: 05/06/20 18:40 05/06/20 18:40 Lab Results 05/06/20 05/06/20 05/06/20 Range/Units 18:40 18:40 18:40 WBC 9.08 (4.8-10.8) K/uL RBC 4.25 (4.2-5.4) M/uL Hgb 12.8 (12.0-16.0) g/dL POC Hgb (12.0-16.0) g/dl Hct 41.4 (37-47) % POC Hct (37-47) % MCV 97.4 (80-100) fL MCH 30.1 (25-34) pg MCHC 30.9 L (32-36) g/dL RDW Std Deviation 52.4 H (36.4-46.3) fL RDW Coeff of Elizabeth 14.7 H (11.5-14.5) % Plt Count 195 (130-400) K/uL MPV 11.0 H (7.4-10.4) fL Immature Gran % (Auto) 0.2 % Neut % (Auto) 84.9 % Lymph % (Auto) 7.4 % Henderson % (Auto) 7.2 % Eos % (Auto) 0.2 % Baso % (Auto) 0.1 % Neut # (Auto) 7.71 H (1.4-6.5) K/uL Lymph # (Auto) 0.67 L (1.2-3.4) K/uL Henderson # (Auto) 0.65 H (0.11-0.59) K/uL Eos # (Auto) 0.02 (0-0.5) K/uL Baso # (Auto) 0.01 (0-0.2) K/uL Immature Gran # (Auto) 0.02 (0.00-0.02) K/uL PT 11.0 (9.0-12.0) Seconds INR 1.0 (0.9-1.1) APTT 31.5 H (21.0-31.0) Seconds PTT Ratio 1.1 POC Sodium (135-144) mmol/L Sodium 138 (136-145) mmol/L POC Potassium (3.3-5.0) mmol/L Potassium 4.4 (3.5-5.1) mmol/L POC Chloride (101-112) mmol/L Chloride 104 (98-107) mmol/L Carbon Dioxide 29 (21-32) mmol/L POC Total CO2 (24-31) mmol/L Anion Gap 5.0 (3-11) POC Anion Gap (16-25) mmol/L POC BUN (7-18) mg/dl BUN 36 H (7-18) mg/dl Creatinine 1.17 (0.6-1.2) mg/dl POC Creatinine (0.6-1.3) mg/dl Est Cr Clr Drug Dosing Not Reportable Est GFR ( Amer) 49.9 Est GFR (Non-Af Amer) 43.1 BUN/Creatinine Ratio 30.5 H (10-20) Glucose 120 H (70-99) mg/dl POC Glucose (other) (70-99) mg/dl Calcium 9.3 (8.5-10.1) mg/dl POC Ioniz Calcium Yessenia (1.12-1.32) mmol/l Phosphorus 3.0 (2.5-4.9) mg/dl Magnesium 2.2 (1.8-2.4) mg/dl Total Bilirubin 0.9 (0.2-1) mg/dl AST 13 L (15-37) U/L ALT 8 L (12-78) U/L Alkaline Phosphatase 151 H (45-117) U/L Total Creatine Kinase 35 (26-192) U/L CK-MB (CK-2) < 1.0 (0.5-3.6) ng/ml CK/CKMB % Calc TNP Troponin I < 0.015 (0-0.045) ng/ml Total Protein 7.1 (6.4-8.2) gm/dl Albumin 3.6 (3.4-5.0) gm/dl Globulin 3.5 (2.5-4.0) gm/dl Albumin/Globulin Ratio 1.0 (0.9-2) Lipase 227 (73-393) U/L Urine Color Urine Appearance (Clear) Urine pH (4.5-7.5) Ur Specific [place] (1.000-1.030) Urine Protein (Negative) Urine Glucose (UA) (Negative) Urine Ketones (Negative) Urine Blood (Negative) Urine Nitrite (Negative) Urine Bilirubin (Negative) Urine Urobilinogen (Negative) Ur Leukocyte Esterase (Negative) 05/06/20 05/06/20 Range/Units 19:02 20:22 WBC (4.8-10.8) K/uL RBC (4.2-5.4) M/uL Hgb (12.0-16.0) g/dL POC Hgb 13.3 (12.0-16.0) g/dl Hct (37-47) % POC Hct 39 (37-47) % MCV (80-100) fL MCH (25-34) pg MCHC (32-36) g/dL RDW Std Deviation (36.4-46.3) fL RDW Coeff of Elizabeth (11.5-14.5) % Plt Count (130-400) K/uL MPV (7.4-10.4) fL Immature Gran % (Auto) % Neut % (Auto) % Lymph % (Auto) % Henderson % (Auto) % Eos % (Auto) % Baso % (Auto) % Neut # (Auto) (1.4-6.5) K/uL Lymph # (Auto) (1.2-3.4) K/uL Henderson # (Auto) (0.11-0.59) K/uL Eos # (Auto) (0-0.5) K/uL Baso # (Auto) (0-0.2) K/uL Immature Gran # (Auto) (0.00-0.02) K/uL PT (9.0-12.0) Seconds INR (0.9-1.1) APTT (21.0-31.0) Seconds PTT Ratio POC Sodium 138 (135-144) mmol/L Sodium (136-145) mmol/L POC Potassium 4.5 (3.3-5.0) mmol/L Potassium (3.5-5.1) mmol/L POC Chloride 100 L (101-112) mmol/L Chloride (98-107) mmol/L Carbon Dioxide (21-32) mmol/L POC Total CO2 28 (24-31) mmol/L Anion Gap (3-11) POC Anion Gap 16.0 (16-25) mmol/L POC BUN 38 H (7-18) mg/dl BUN (7-18) mg/dl Creatinine (0.6-1.2) mg/dl POC Creatinine 1.2 (0.6-1.3) mg/dl Est Cr Clr Drug Dosing Est GFR ( Amer) Est GFR (Non-Af Amer) BUN/Creatinine Ratio (10-20) Glucose (70-99) mg/dl POC Glucose (other) 124 H (70-99) mg/dl Calcium (8.5-10.1) mg/dl POC Ioniz Calcium Yessenia 1.25 (1.12-1.32) mmol/l Phosphorus (2.5-4.9) mg/dl Magnesium (1.8-2.4) mg/dl Total Bilirubin (0.2-1) mg/dl AST (15-37) U/L ALT (12-78) U/L Alkaline Phosphatase (45-117) U/L Total Creatine Kinase (26-192) U/L CK-MB (CK-2) (0.5-3.6) ng/ml CK/CKMB % Calc Troponin I (0-0.045) ng/ml Total Protein (6.4-8.2) gm/dl Albumin (3.4-5.0) gm/dl Globulin (2.5-4.0) gm/dl Albumin/Globulin Ratio (0.9-2) Lipase (73-393) U/L Urine Color Yellow Urine Appearance Clear (Clear) Urine pH 6.0 (4.5-7.5) Ur Specific [place] 1.028 (1.000-1.030) Urine Protein Negative (Negative) Urine Glucose (UA) Negative (Negative) Urine Ketones Trace H (Negative) Urine Blood Negative (Negative) Urine Nitrite Negative (Negative) Urine Bilirubin Negative (Negative) Urine Urobilinogen Negative (Negative) Ur Leukocyte Esterase Negative (Negative) Imaging Data Radiologist's Impression: CT abdomen pelvis with contrast: Acute subacute fracture through the anterior bridging osteophyte at T11-T12 and extending into the T11 inferior endplate. No retropulsion. No visible extension to the posterior elements. Gallbladder distention and wall thickening with cholelithiasis concerning for acute cholecystitis. Clinical sonographic correlation recommended. Common bile duct appears normal in caliber for age. Trace trace right pleural effusion. Atelectasis at the lung base. Mild periportal edema and trace perihepatic ascites. Liver is otherwise unremarkable. Spleen is normal. Pancreas is atrophic. Right adrenal gland is normal. Stable thickening of left adrenal gland. Symmetric renal enhancement. No hydronephrosis. Aortoiliac atherosclerosis without aneurysm. No bowel obstruction or inflammation. Colonic diverticulosis without acute diverticulitis. Appendix not identified. Uterus and urinary bladder are unremarkable. Postsurgical changes of the spine. Ultrasound abdomen limited: Cholelithiasis gallbladder wall thickening and keisha- cholecystic fluid concerning for acute cholecystitis. Dilated common bile duct for patient age measuring 1.2 cm correlate for biliary stasis. Consider MRCP as indicated. Hepatomegaly. No hydronephrosis of the right kidney. ECG Data Attestation: I personally reviewed and interpreted this ECG as follows: Indication: bradycardia Rate (beats per minute): 53 Findings: + Q waves (Septal); no ST elevation Comparison ECG Date: from (05/06/2020) Change: the following changes noted (Septal infarct) MDM Narrative Patient was seen and evaluated as above in room B4. Review was performed of nursing notes and vital signs. I did review pertinent previous visits and patient history. After obtaining a thorough history and physical examination the above work up was performed. This is an 84-year-old female who presents emergency department complaining of right upper quadrant abdominal pain after eating today. I am concerned the patient has acute cholecystitis confirmed by both CAT scan as well as ultrasound. Should her white blood cell count is 9. She was started on Mefoxin here in the emergency department. I did discuss her case with both the hospitalist as well as the surgery service. Patient is in agreement with the treatment plan. An order was placed for continuous cardiac monitoring. The monitor shows a rate of 53 with Sinus bradycardia rhythm. The patient was evaluated during the global COVID-19 pandemic, and that diagnosis was suspected/considered upon their initial presentation. Their e valuation, treatment and testing was consistent with current guidelines for patients who present with complaints or symptoms that may be related to COVID- 19. Impression & Plan Abdominal pain, Acute cholecystitis Discharge Plan Visit Data *Final* Discharge Date/Time: 05/06/20 23:41 Chief Complaint: Abdominal Pain Stated Complaint: ABD PAIN, WEAKNESS ED Provider: Nicko Portillo Discharge Problem: Abdominal pain, Acute cholecystitis Patient Disposition: Admitted As Inpatient Discharge Instructions Interventions: ED Discharge Assessment Last Done: 05/06/20 23:41 Discharge Problem: Abdominal pain Qualifiers: Abdominal location: right upper quadrant Qualified Code(s): R10.11 - Right upper quadrant pain
[2020-05-07] MEDS: PIPERACILLIN/TAZOBACTAM 3.375 GM in DEXTROSE 5% 100 ML IV SCH ×3 (05:16→21:43)
[2020-05-07] MEDS: CARBIDOPA/LEVODOPA 50/200MG EXT REL TAB PO SCH ×2 (05:16→18:46)
[2020-05-07 05:20] LABS: Eosinophils # (auto) 0.03 K/uL (0-0.5); Eosinophils % (auto) 0.3 %; Hematocrit (blood only) 41.1 % (37-47); Hemoglobin 13.4 g/dL (12.0-16.0); Immature Granulocytes # (auto) 0.02 K/uL (0.00-0.02); Immature Granulocytes % (auto) 0.2 %; Lymphocytes # (auto) 0.85 K/uL (1.2-3.4); Lymphocytes % (auto) 8.1 %; Mean Corpuscular Hemoglobin 31.8 pg (25-34); Mean Corpuscular Hgb Conc 32.6 g/dL (32-36); Mean Corpuscular Volume 97.4 fL (80-100); Monocytes # (auto) 0.67 K/uL (0.11-0.59); Monocytes % (auto) 6.4 %; Neutrophils # (auto) 8.92 K/uL (1.4-6.5); Platelet Count 191 K/uL (130-400); RDW Coefficient of Variation 14.8 % (11.5-14.5); RDW Standard Deviation 52.9 fL (36.4-46.3); Red Blood Count 4.22 M/uL (4.2-5.4); White Blood Count 10.49 K/uL (4.8-10.8)
[2020-05-07 05:44] LABS: Albumin Level 3.2 gm/dl (3.4-5.0); BUN Creatinine Ratio 25.7 (10-20); Bilirubin Direct 0.2 mg/dl (0-0.2); Calcium 8.8 mg/dl (8.5-10.1); Creatinine Clr Calc Pharmacy 41.8 ml/min; Est GFR (African American) 56.2; Est GFR (Non-African American) 48.5; Potassium 4.3 mmol/L (3.5-5.1)
[2020-05-07 05:47] LABS: Bilirubin,Total 1.3 mg/dl (0.2-1); Total Protein 6.8 gm/dl (6.4-8.2)
--- NOTE | 2020-05-07 07:29 | Ultrasound Report ---
ABDOMINAL ULTRASOUND, RIGHT UPPER QUADRANT HISTORY: Pt c/o RUQ abd pain. COMPARISON: Abdomen and pelvis CT 05/06/2020. FINDINGS: Pancreas: The pancreatic tail is obscured by overlying bowel gas. The remaining portions of the pancr eas are within normal limits. Liver: Mildly enlarged measuring 19.4 cm in length. No hepatic masses. Gallbladder: Multiple stones. There is gallbladder wall thickening. The gallbladder wall appears mark atous measuring up to 8 mm. Small amount of pericholecystic fluid. CBD: 1.2 cm. Right kidney: No hydronephrosis. IMPRESSION: 1. Cholelithiasis with gallbladder wall thickening and pericholecystic fluid. This is concerning for acute cholecystitis. 2. Dilated common bile duct measuring 1.2 cm. 3. Hepatomegaly. ACT 112: Negative or not required by law. Electronically signed by: Mat Hall M.D. 05/07/2020 7:28 AM
[2020-05-07] MEDS: ESCITALOPRAM OXALATE 10 MG TAB PO SCH (07:43)
[2020-05-07] MEDS: FUROSEMIDE 20 MG TAB PO SCH (07:44)
[2020-05-07] MEDS: MEMANTINE HCL 10 MG TAB PO SCH ×2 (07:45→21:37)
[2020-05-07] MEDS: CARBIDOPA/LEVODOPA 25/100MG TAB PO SCH ×4 (07:45→21:39)
--- NOTE | 2020-05-07 08:07 | CT Scan Report ---
ABDOMEN AND PELVIS CT WITH IV CONTRAST CT DOSE: 1415.94 mGy.cm HISTORY: Pt c/o RUQ abd pain TECHNIQUE: Multiaxial CT images of the abdomen and pelvis were performed following the use of intrave nous contrast. A dose lowering technique was utilized adhering to the principles of ALARA. COMPARISON STUDY: Abdomen and pelvis CT 04/05/2017. FINDINGS: Fracture through the partially fused anterior osteophyte at T11-T12. The fracture extends i nto the inferior endplate of T11 and superior endplate of T12. No significant loss of height at this time. The posterior elements do not appear to be involved. There is suggestion of callus formation at this fracture site suggestive of a subacute fracture. Groundglass densities at the lung bases and mi ld interstitial thickening. Trace right pleural effusion. Dense mitral annulus calcifications. Mild p aravertebral soft tissue swelling at T11-T12. Probable fat necrosis within the left lateral hip likel y due to old trauma. The bladder, uterus, bilateral adnexa are within normal limits. Colonic divertic ulosis. No evidence for acute diverticulitis. No bowel wall thickening or obstruction. Normal appendi x. Gallbladder wall thickening with pericholecystic fluid and inflammatory change. There is gallbladd er sludge/stones identified the fundus. Findings are suspicious for acute cholecystitis. Mild central intrahepatic bile duct dilatation. No hepatic or splenic masses. A 2 cm left adrenal gland nodule. N o hydronephrosis. There is an indeterminate 7 mm intermediate density exophytic lesion within the rig ht kidney on image 80 of 416. This is stable to slightly increased in size dating back to 2017. Exten sive posterior fusion within the lumbar spine. IMPRESSION: 1. Gallbladder wall thickening with pericholecystic fluid and inflammatory change. There is gallbladd er sludge/stones identified the fundus. Findings are suspicious for acute cholecystitis. 2. Fracture through the partially fused anterior osteophyte at T11-T12. The fracture extends into the inferior endplate of T11 and superior endplate of T12. No significant loss of height at this time. T he posterior elements do not appear to be involved. There is suggestion of callus formation at this f racture site suggestive of a subacute fracture. 3. There is an indeterminate 7 mm intermediate density exophytic lesion within the right kidney. This is stable to slightly increased in size dating back to 2017. 4. Trace right pleural effusion. 5. Additional findings as described above. ACT 112: Negative or not required by law. Electronically signed by: Mat Hall M.D. 05/07/2020 8:05 AM
--- NOTE | 2020-05-07 12:02 | Surgery Progress Note ---
Date of Service May 07, 2020 Assessment & Plan (1) Acute cholecystitis: MRCP pending WBC stable Xarelto on hold Supervising Physician Co-Signing Physician Notes Patient seen and examined, labs and imaging reviewed, agree with above. For full details, please see Kurtis Stark's note from overnight. 84-year-old female with dementia presented with abdominal pain. Difficult to obtain a good history. Afebrile with stable vitals. On exam tender to palpation in the right upper quadrant with no guarding, negative Roach's. CT imaging revealed a distended and thick-walled gallbladder with some pericholecystic fluid. Ultrasound confirmed the diagnosis of acute calculus cholecystitis. Common bile duct was 1.2 cm. This morning her bilirubin is 1.3. She is on blood thinners for history of PEs. Recommend an MRCP, likely to the operating room on Thursday for laparoscopic cholecystectomy with possible cholangiogram. Continue antibiotics, hold oral anticoagulation. Subjective some RUQ pain Physical Exam Gastrointestinal (Abdomen): Percussion/Palpation: + abdomen tender (mild RUQ) Results & Data Vital Signs (Past 12 Hours) Vital Signs Temp Pulse Resp BP Pulse Ox 05/07/20 08:50 36.4 C L 05/07/20 08:14 37.3 C 58 L 16 116/64 93 05/07/20 00:02 36.8 C 65 20 158/78 H 96 PG Care Time/CCT Total # of Minutes Spent Total Time Spent with Patient: Total time spent is greater than 50% in coordination of care (as documented) at patient's floor/unit and/or counseling patient: Coding Level of Care Code 97343 Subseq Hosp Care Lvl 1 Diagnoses Acute cholecystitis K81.0
--- NOTE | 2020-05-07 13:10 | Magnetic Resonance Report ---
MR MRCP CLINICAL HISTORY: dilated CBD 1.2cm COMPARISON STUDY: CT scan dated 05/06/2020 FINDINGS: There is a small right pleural effusion. There is no pancreatic ductal dilatation. No common bile duct filling defects are visualized. Breath-hold images were obtained in the axial and coronal planes. MIP images were acquired. There is trace perihepatic fluid. The liver is top normal in size. The spleen is top normal in size. There are multiple gallstones. There is gallbladder wall thickening. The common bile duct measures 7 mm. There is no pancreatic ductal dilatation. No common bile duct filling defects are visualized. On coronal images, there is a distal common bile duct meniscus sign. This is not confirmed on other sequences. IMPRESSION: 1. Cholelithiasis and MRCP findings highly suspicious for acute cholecystitis 2. 7 mm common bile duct. No evidence of pancreatic ductal dilatation 3. Although no definite common bile duct filling defects are visualized, there is a distal common tori e duct meniscus sign on the coronal images. This however was not confirmed on other sequences. A smal l distal common bile duct calculus cannot be excluded. ACT 112: Negative or not required by law. Electronically signed by: Norris Jasso M.D. 05/07/2020 1:08 PM
--- NOTE | 2020-05-07 14:16 | Electrocardiogram Report ---
Test Reason : Blood Pressure : / mmHG Vent. Rate : 053 BPM Atrial Rate : 053 BPM P-R Int : 150 ms QRS Dur : 130 ms QT Int : 512 ms P-R-T Axes : 076 000 055 degrees QTc Int : 480 ms Sinus bradycardia Left ventricular hypertrophy with QRS widening Right bundle branch block Abnormal ECG Confirmed by Satya Gracia ([id number]) on 05/07/2020 2:16:48 PM Referred By: REFERRED SELF Confirmed By:Akhil Garcia
--- NOTE | 2020-05-07 15:59 | Hospitalist Progress Note ---
Date of Service May 07, 2020 Assessment & Plan (1) Acute cholecystitis: as seen on imaging at admission. cont zosyn. cont IV fluids. cont pain meds. NPO for now. holding xarelto - needs to be off such for 48 hours prior to surgery. appreciate gen surg consultation. MRCP results pending; if any signs of choledocholithiasis then GI consultation for consideration ERCP. CMP in am. (2) T11 vertebral fracture: subacute. callus formation already seen on imaging. no pain - found incidentally. spoke with spine surgery - nothing to do at this time. conservative management. defer on MRI imaging unless she has symptoms/signs of neuro compromise. (3) Dementia: noted cont aricept cont namenda due to Parkinson's? (4) Hypertension: BPs low-normal would hold PO lasix (5) Hyperlipidemia: not on meds for such (6) Parkinsons: cont sinemet (7) Atrial fibrillation: examines normal sinus rhythm today HOLD XARELTO cont amiodarone (8) Chronic kidney disease, stage 3a: Cr stable BMP in am (9) DVT prophylaxis: holding xarelto for upcoming lap tim SCDs in meantime cont IV fluids updated daughter by phone today Admission and Anticipated Discharge Date Admission Date: May 06, 2020 Subjective patient resting comfortably during the visit. she was confused. denied any complaints. no back pain or abd pain. no issues per staff. Review of Systems Review of Systems: Unobtainable due to cognitive status Physical Exam Constitutional: + altered mental status; no acute distress ENMT: external ear and nose normal, oropharynx normal Respiratory: normal respiratory effort, lungs clear to auscultation Cardiovascular: Rate/Rhythm: regular rate and regular rhythm Heart Sounds: normal S1 and normal S2; no murmur Vessels: posterior tibial pulses present and dorsalis pedis pulses present; no JVD Extremities: no edema Gastrointestinal (Abdomen): Inspection/Auscultation: + abdomen distended (Mild) and normal bowel sounds Percussion/Palpation: + abdomen tender; no guarding and no hepatosplenomegaly Psychiatric: Orientation: alert, oriented to person and oriented to place; + not oriented to time Results & Data Results & Data ([facility]) Vital Signs (Past 12 Hours) Vital Signs Temp Pulse Resp BP Pulse Ox 05/07/20 15:12 36.8 C 62 18 117/71 96 05/07/20 13:21 36.8 C 58 L 16 123/67 95 05/07/20 08:50 36.4 C L 05/07/20 08:14 37.3 C 58 L 16 116/64 93 PG Care Time/CCT Total # of Minutes Spent Total Time Spent with Patient: Total time spent is greater than 50% in coordination of care (as documented) at patient's floor/unit and/or counseling patient: Coding Level of Care Code 26335 Subseq Hosp Care Lvl 2 Diagnoses Acute cholecystitis K81.0 T11 vertebral fracture S22.089A Encounter type: initial encounter Fracture type: closed Fracture morphology: unspecified fracture morphology Dementia G20; F02.80 Dementia type: Parkinson's disease Dementia behavioral disturbance: without behavioral disturbance Hypertension I10 Hyperlipidemia E78.5 Parkinsons G20 Atrial fibrillation I48.0 Atrial fibrillation type: paroxysmal Chronic kidney disease, stage 3a N18.3 DVT prophylaxis Z29.9 (1) T11 vertebral fracture Encounter type: initial encounter Fracture type: closed Fracture morphology: unspecified fracture morphology Qualified Code(s): S22.089A - Unspecified fracture of T11-T12 vertebra, initial encounter for closed fracture (2) Dementia Dementia type: Parkinson's disease Dementia behavioral disturbance: without behavioral disturbance Qualified Code(s): G20 - Parkinson's disease; F02.80 - Dementia in other diseases classified elsewhere without behavioral disturbance (3) Atrial fibrillation Atrial fibrillation type: paroxysmal Qualified Code(s): I48.0 - Paroxysmal atrial fibrillation
[2020-05-07] MEDS: D5W AND NSS 1,000 ML IV SCH (16:24)
[2020-05-07] MEDS: TRAZODONE HCL 50 MG TAB PO SCH (21:38)
[2020-05-07] MEDS: DONEPEZIL HCL 10 MG TAB PO SCH (21:38)
[2020-05-07] MEDS: AMIODARONE 200 MG TAB PO SCH (21:40)
[2020-05-08] MEDS: PIPERACILLIN/TAZOBACTAM 3.375 GM in DEXTROSE 5% 100 ML IV SCH ×3 (05:21→21:37)
[2020-05-08] MEDS: CARBIDOPA/LEVODOPA 50/200MG EXT REL TAB PO SCH ×2 (05:21→21:15)
[2020-05-08] MEDS: D5W AND NSS 1,000 ML IV SCH (05:21)
[2020-05-08 06:47] LABS: Alanine Aminotransferase < 6 U/L (12-78); Albumin Globulin Ratio 0.9 (0.9-2); Albumin Level 2.8 gm/dl (3.4-5.0); Alkaline Phosphatase 118 U/L (45-117); Aspartate Aminotransferase 16 U/L (15-37); BUN Creatinine Ratio 20.6 (10-20); Bilirubin,Total 1.6 mg/dl (0.2-1); Blood Urea Nitrogen 22 mg/dl (7-18); Calcium 8.3 mg/dl (8.5-10.1); Carbon Dioxide 26 mmol/L (21-32); Chloride 108 mmol/L (98-107); Creatinine Clr Calc Pharmacy 41.4 ml/min; Est GFR (African American) 55.6; Globulin 3.2 gm/dl (2.5-4.0); Glucose 88 mg/dl (70-99); Potassium 3.2 mmol/L (3.5-5.1); Sodium 140 mmol/L (136-145)
[2020-05-08] MEDS: ESCITALOPRAM OXALATE 10 MG TAB PO SCH (07:19)
[2020-05-08] MEDS: MEMANTINE HCL 10 MG TAB PO SCH ×2 (07:19→21:14)
[2020-05-08] MEDS: CARBIDOPA/LEVODOPA 25/100MG TAB PO SCH ×4 (07:19→21:31)
[2020-05-08] MEDS ORDERED: POTASSIUM CHLORIDE / WTR 10 MEQ/100 ML PLCT IV ONE (09:00)
[2020-05-08] MEDS: POTASSIUM CHLORIDE 20 MEQ in D5W AND NSS 1,000 ML IV SCH ×2 (09:13→23:12)
--- NOTE | 2020-05-08 10:31 | Gastrointestinal Consultation ---
Date of Consultation May 08, 2020 Assessment & Plan (1) Acute cholecystitis: 84 year old female admitted w/ acute cholecystitis, plan for CCY tomorrow, GI asked to evaluate today given slight bump in Tbili, MRCP questioning a distal CBD stone. Discussed with daughter Mary ([phone]) and Son (YUSRA Hugo [phone]) who were agreeable to pre-operative EUS+/-ERCP if needed. Continue to keep NPO, hold AC for EUS/ERCP today, CCY tomorrow. Thank you for allowing us to participate in the care of this patient. Please call with any acute changes, questions or concerns. Please see addendum below with additional recommendation from my supervising physician. Supervising Physician Co-Signing Physician Notes I saw and evaluated the patient. She presented with a history of discomfort and was found to have evidence of meniscus sign on MRCP. Given the circumstances perhaps it is best to proceed with upper endoscopy and endoscopic ultrasound to see if the patient has a stone within the distal common bile duct. If positive we could then proceed with ERCP for stone removal. I have discussed the risks and benefits of the procedures with the patient's son is given verbal consent for the procedures this afternoon. Physical examination No apparent distress No icterus Mild right-sided abdominal tenderness Impression: Patient with suspected choledocholithiasis for upper endoscopy EUS and possible ERCP today. History of Present Illness Reason for Consultation: need for ERCP Requesting Physician: Sujit Attending Physician: Niraj Beckett History of Present Illness 84 year old female with history of PD, dementia, AF on Xarelto anticoagulation last dose 48 hours ago, HTN/HLP/CHF admitted with acute cholecystitis - GI asked to evaluate need for ERCP given slight bump in Tbili and MRCP concerning for distal CBD stone. Pt this AM is pleasantly confused. No abd pain. No nausea/vomiting. MRCP: Cholelithiasis and MRCP findings highly suspicious for acute cholecystitis7 mm common bile duct. No evidence of pancreatic ductal dilatation Although no definite common bile duct filling defects are visualized, there is a distal common bile duct meniscus sign on the coronal images. This however was not confirmed on other sequences. A small distal common bile duct calculus cannot be excluded. Allergies Allergy/AdvReac Type Severity Reaction Status Date / Time succinylcholine Allergy Severe PSEUDO-CHOLINESTERASE Verified 05/06/20 21:48 DEFICIENCY Home Medications Home Medications Medication Instructions Recorded Confirmed Type polyethylene glycol 3350 [Miralax] 17 g PO DAILY PRN 11/01/18 05/06/20 History white petrolatum-mineral oil 1 applic OPB UD PRN 11/01/18 05/06/20 History [Artificial Tears (kathy/min)] miscellaneous medical supply #1 ea 07/15/19 03/29/20 Rx miscellaneous medical supply #200 ea 08/18/19 03/29/20 Rx carbidopa ER 50 mg-levodopa 200 mg 1 tab PO BID 90 Days #180 tab 10/03/19 05/06/20 Rx tablet,extended release alendronate 70 mg tablet 70 mg PO WK #12 tab 11/24/19 05/06/20 Rx amiodarone 200 mg tablet 200 mg PO QPM #90 tab 11/24/19 05/06/20 Rx furosemide 40 mg tablet 20 mg PO DAILY #45 tab 11/24/19 05/06/20 Rx memantine 10 mg tablet 10 mg PO BID #180 tab 12/12/19 05/06/20 Rx carbidopa 25 mg-levodopa 250 mg 1 tab PO TID PRN 90 Days #270 tab 01/11/20 05/06/20 Rx disintegrating tablet carbidopa 25 mg-levodopa 100 mg 3 tab PO QID 90 Days #1080 tab 03/08/20 05/06/20 Rx tablet trazodone 50 mg tablet 25 mg PO HS #15 tab 03/15/20 05/06/20 Rx donepezil 10 mg tablet 10 mg PO HS 90 Days #90 tab 03/27/20 05/06/20 Rx clonazepam 0.5 mg disintegrating 0.5 mg PO HS 30 Days #30 tab 04/03/20 05/06/20 Rx tablet miscellaneous medical supply #1 ea 04/17/20 Rx escitalopram oxalate 15 mg PO DAILY 05/06/20 05/06/20 History rivaroxaban [Xarelto] 15 mg PO HS 05/06/20 05/06/20 History Patient History Medical History Anxiety Arthritis Atrial fibrillation Bradycardia Chronic lower back pain Constipation Dementia Gastro-esophageal reflux Hearing loss History of Clostridioides difficile colitis Hyperlipidemia Hyperparathyroidism Hypertension Macular degeneration Mitral regurgitation Neuropathy Osteoporosis Parkinsons Spinal stenosis of lumbar region with radiculopathy Urinary incontinence Venous insufficiency Venous stasis dermatitis Vitamin D deficiency disease Surgical History History of abdominal surgery REMOVED A TUMOR WITH A BLEEDING ULCER(BENIGN) History of cataract surgery History of knee replacement, total History of lumbar fusion Hx of varicose vein ligation Status post repair of nerve NEUROPLASTY DECOMPRESSION MEDIAN NERVE AT CARPAL TUNNEL, LEFT-HAND Family History Mother Cancer Brain cancer Hypertension Brother Colon cancer Heart disease Colorectal cancer Father Myocardial infarction Hypertension Sister Colorectal cancer Sister Colorectal cancer Family/Other Breast cancer Daughter Thyroid cancer Denies family history of Ovarian cancer Prostate cancer Social History Preferred Language: Romansh Communication Ability: Effective Visual Impairment: No Limitations Hearing Ability: Normal 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 Printing Required: No Beliefs That Will Affect Care: None marital status: Current Living Situation: Family current occupational status: retired 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 Feels Safe at Home: Yes Smoking Status: Never smoker Second Hand Exposure: No ; Hx Alcohol Use: Yes Alcohol type: hard liquor Hx Substance Use: No caffeine: No Dental Care, Regularly: No Physical Activity Frequency: Does not Exercise Seatbelt Use: always Review of Systems Review of Systems: Not obtained due to pt baseline mental status Physical Exam Gastrointestinal (Abdomen): normal bowel sounds, soft, nontender, no hepatosplenomegaly Results & Data ([facility]) Vital Signs (Past 12 Hours) Vital Signs Temp Pulse Resp BP Pulse Ox 05/08/20 07:43 36.5 C 62 16 106/63 94 05/07/20 23:32 36.8 C 62 24 103/58 L 91 Laboratory Results 05/08/20 Range/Units 05:44 Sodium 140 (136-145) mmol/L Potassium 3.2 L D (3.5-5.1) mmol/L Chloride 108 H (98-107) mmol/L Carbon Dioxide 26 (21-32) mmol/L Anion Gap 6.0 (3-11) BUN 22 H (7-18) mg/dl Creatinine 1.07 (0.6-1.2) mg/dl Est Cr Clr Drug Dosing 41.4 ml/min Est GFR ( Amer) 55.6 Est GFR (Non-Af Amer) 48.0 BUN/Creatinine Ratio 20.6 H (10-20) Glucose 88 (70-99) mg/dl Calcium 8.3 L (8.5-10.1) mg/dl Total Bilirubin 1.6 H (0.2-1) mg/dl AST 16 (15-37) U/L ALT < 6 L (12-78) U/L Alkaline Phosphatase 118 H (45-117) U/L Total Protein 6.0 L (6.4-8.2) gm/dl Albumin 2.8 L (3.4-5.0) gm/dl Globulin 3.2 (2.5-4.0) gm/dl Albumin/Globulin Ratio 0.9 (0.9-2)
--- NOTE | 2020-05-08 10:35 | Surgery Progress Note ---
Date of Service May 08, 2020 Assessment & Plan (1) Cholecystitis: Patient here with acute cholecystitis Tbili: 1.6 (1.3), AST: <6, ALT: 76, AlkP: 118 MRCP showed stones and concern for acute cholecystitis. No definitive filling defects seen, but there is a + meniscus sign and cannot rule out distal CBD stone. GI plans to take patient for EUS possible ERCP today Will consult anesthesia to see today given pseudocholinesterase deficiency We will plan for lap tim tomorrow. Keep NPO at midnight Supervising Physician Co-Signing Physician Notes Patient seen and examined, labs and imaging reviewed, agree with above. 84-year-old female admitted with cholelithiasis and cholecystitis, MRCP yesterday suggested possible meniscus sign. Her bilirubin continues to increase, today 1.6. GI is been consulted and is planning on ERCP today, or possibly tomorrow. Her anticoagulation has been held. On exam she is afebrile with stable vitals. Tender to palpation in the right upper quadrant but slightly improved. WBC normal, T bili 1.6. MRCP results as above. ERCP per GI Plan for laparoscopic cholecystectomy with possible cholangiogram tomorrow in the operating room N.p.o. after midnight The risk of the procedure were discussed to include but not limited to bleeding, infection, retained stone, bile leak, damage to surrounding structures including common bile duct, conversion to open, need for future more extensive surgery, and the risks of anesthesia The diagnosis, details the procedure and recovery, and plan of care were discussed with daughter Mary ([phone]) and Son (YUSRA Hugo [phone]) as well as the patient and her . All questions were answered, all parties were in agreement to proceed with surgery as planned. Subjective Patient seen resting in bed. She says her pain is better, although she is somewhat confused when talking with her. Physical Exam Physical Exam: awake, lying in bed Gastrointestinal (Abdomen): Inspection/Auscultation: abdomen not distended Percussion/Palpation: + abdomen tender (ttp in RUQ) and abdomen soft Results & Data Vital Signs (Past 12 Hours) Vital Signs Temp Pulse Resp BP Pulse Ox 05/08/20 07:43 36.5 C 62 16 106/63 94 05/07/20 23:32 36.8 C 62 24 103/58 L 91 PG Care Time/CCT Total # of Minutes Spent Total Time Spent with Patient: Total time spent is greater than 50% in coordination of care (as documented) at patient's floor/unit and/or counseling patient: Coding Level of Care Code 85257 Subseq Hosp Care Lvl 1 Diagnoses Cholecystitis K81.9
[2020-05-08] MEDS ORDERED: fentaNYL citrate 100 MCG/2 ML VIAL ONE (15:13)
--- NOTE | 2020-05-08 15:31 | Anesthesiology Consultation ---
Date of Service May 08, 2020 Assessment & Plan (1) Encounter for pre-operative examination: Chart Review Chart Review: Acceptable Risk for Surgery History Surgery Operation Date: 05/08/20 07:00 Proposed Procedures p Endoscopic Retrograde Cholangiopancreatogram - Margarita Morgan Operation Date: 05/09/20 11:20 Proposed Procedures p Laparoscopic Cholecystectomy, Possible Cholangiogram - David Goddard, , FACS Height/Weight Height: 5 ft 3 in Weight: 85.9 kg Allergies Allergy/AdvReac Type Severity Reaction Status Date / Time succinylcholine Allergy Severe PSEUDO-CHOLINESTERASE Verified 05/06/20 21:48 DEFICIENCY Medications Home Medications Medication Instructions Recorded Confirmed Last Taken polyethylene glycol 3350 [Miralax] 17 g PO DAILY PRN 11/01/18 05/06/20 05/06/20 white petrolatum-mineral oil 1 applic OPB UD PRN 11/01/18 05/06/20 05/05/20 [Artificial Tears (kathy/min)] miscellaneous medical supply #1 ea 07/15/19 03/29/20 Unknown miscellaneous medical supply #200 ea 08/18/19 03/29/20 Unknown carbidopa ER 50 mg-levodopa 200 mg 1 tab PO BID 90 Days #180 tab 10/03/19 05/06/20 05/06/20 06:00 tablet,extended release alendronate 70 mg tablet 70 mg PO WK #12 tab 11/24/19 05/06/20 05/05/20 amiodarone 200 mg tablet 200 mg PO QPM #90 tab 11/24/19 05/06/20 05/05/20 20:00 furosemide 40 mg tablet 20 mg PO DAILY #45 tab 11/24/19 05/06/20 05/06/20 memantine 10 mg tablet 10 mg PO BID #180 tab 12/12/19 05/06/20 05/06/20 10:00 carbidopa 25 mg-levodopa 250 mg 1 tab PO TID PRN 90 Days #270 tab 01/11/20 05/06/20 05/06/20 14:30 disintegrating tablet carbidopa 25 mg-levodopa 100 mg 3 tab PO QID 90 Days #1080 tab 03/08/20 05/06/20 05/06/20 14:00 tablet trazodone 50 mg tablet 25 mg PO HS #15 tab 03/15/20 05/06/20 05/05/20 donepezil 10 mg tablet 10 mg PO HS 90 Days #90 tab 03/27/20 05/06/20 05/05/20 clonazepam 0.5 mg disintegrating 0.5 mg PO HS 30 Days #30 tab 04/03/20 05/06/20 05/05/20 tablet miscellaneous medical supply #1 ea 04/17/20 Unknown escitalopram oxalate 15 mg PO DAILY 05/06/20 05/06/20 05/05/20 rivaroxaban [Xarelto] 15 mg PO HS 05/06/20 05/06/20 05/05/20 Active Medications Generic Name Dose Route Start Last Admin Trade Name Freq PRN Reason Stop Dose Admin Acetaminophen 650 mg 05/07/20 00:05 05/07/20 05:18 Tylenol PO 06/06/20 00:04 650 mg Q4H PRN Administration pain/fever Amiodarone HCl 200 mg 05/07/20 21:00 05/07/20 21:40 Cordarone PO 06/06/20 20:59 200 mg QPM DEANNE Administration Carbidopa/Levodopa 1 tab 05/07/20 06:00 05/08/20 05:21 Sinemet Cr 50/200mg PO 06/06/20 05:59 1 tab BID@0600,1800 DEANNE Administration Carbidopa/Levodopa 3 tab 05/07/20 09:00 05/08/20 13:26 Sinemet 25/100 Mg PO 06/06/20 08:59 3 tab QID DEANNE Administration Clonazepam 0.5 mg 05/07/20 01:00 05/07/20 21:42 Klonopin PO 06/06/20 00:59 0.5 mg HS DEANNE Administration Donepezil HCl 10 mg 05/07/20 21:00 05/07/20 21:38 Aricept PO 06/06/20 20:59 10 mg HS DEANNE Administration Escitalopram Oxalate 15 mg 05/07/20 09:00 05/08/20 07:19 Lexapro Tab PO 06/06/20 08:59 15 mg DAILY DEANNE Administration Furosemide 20 mg 05/07/20 09:00 05/07/20 07:44 Lasix PO 06/06/20 08:59 20 mg DAILY DEANNE Administration Piperacillin Sod/Tazobactam 115 mls @ 28.75 mls/hr 05/07/20 06:00 05/08/20 13:24 Sod 3.375 gm/ Dextrose IV 05/17/20 05:59 28.8 mls/hr Q8H DEANNE Administration Protocol Potassium Chloride 20 meq/ 1,010 mls @ 75 mls/hr 05/08/20 09:00 05/08/20 09:13 Dextrose/Sodium Chloride IV 05/08/20 22:28 75 mls/hr .[id number] DEANNE Administration Ioversol 94 ml 05/06/20 20:19 05/06/20 20:19 Optiray 320 100ml IV 05/10/20 20:18 94 ml ONCE PRN Administration Interaction Checking Memantine 10 mg 05/07/20 09:00 05/08/20 07:19 Namenda PO 06/06/20 08:59 10 mg BID DEANNE Administration Trazodone HCl 25 mg 05/07/20 21:00 05/07/20 21:38 Desyrel PO 06/06/20 20:59 25 mg HS DEANNE Administration Past Medical History Medical History Anxiety Arthritis Atrial fibrillation Bradycardia Chronic lower back pain Constipation Dementia Gastro-esophageal reflux Hearing loss History of Clostridioides difficile colitis Hyperlipidemia Hyperparathyroidism Hypertension Macular degeneration Mitral regurgitation Neuropathy Osteoporosis Parkinsons Spinal stenosis of lumbar region with radiculopathy Urinary incontinence Venous insufficiency Venous stasis dermatitis Vitamin D deficiency disease Past Family History Family History Mother Cancer Brain cancer Hypertension Brother Colon cancer Heart disease Colorectal cancer Father Myocardial infarction Hypertension Sister Colorectal cancer Sister Colorectal cancer Family/Other Breast cancer Daughter Thyroid cancer Denies family history of Ovarian cancer Prostate cancer Past Surgical History Surgical History History of abdominal surgery REMOVED A TUMOR WITH A BLEEDING ULCER(BENIGN) History of cataract surgery History of knee replacement, total History of lumbar fusion Hx of varicose vein ligation Status post repair of nerve NEUROPLASTY DECOMPRESSION MEDIAN NERVE AT CARPAL TUNNEL, LEFT-HAND Social History Smoking Status: Never smoker Hx Alcohol Use: Yes Alcohol type: hard liquor alcohol intake frequency: holidays/special occasions only Hx Substance Use: No Physical Exam Vital Signs Last Vital Signs Temp 37 C 05/08/20 15:09 Pulse 60 05/08/20 15:09 Resp 14 05/08/20 15:09 BP 101/57 L 05/08/20 15:09 Pulse Ox 95 05/08/20 15:09 Testing Laboratory Results 05/07/20 05:05 05/08/20 05:44 PT 11.0 Seconds (9.0-12.0) 05/06/20 18:40 INR 1.0 (0.9-1.1) 05/06/20 18:40 APTT 31.5 Seconds (21.0-31.0) H 05/06/20 18:40 Urine Color Yellow 05/06/20 20:22 Urine Appearance Clear (Clear) 05/06/20 20:22 Urine pH 6.0 (4.5-7.5) 05/06/20 20:22 Ur Specific [place] 1.028 (1.000-1.030) 05/06/20 20:22 Urine Protein Negative (Negative) 05/06/20 20:22 Urine Glucose (UA) Negative (Negative) 05/06/20 20:22 Urine Ketones Trace (Negative) H 05/06/20 20:22 Urine Nitrite Negative (Negative) 05/06/20 20:22 Ur Leukocyte Esterase Negative (Negative) 05/06/20 20:22 Electrocardiogram Date: 05/06/20 Findings: + SB @ (53) and + RBBB
[2020-05-08] MEDS ORDERED: fentaNYL citrate 100 MCG/2 ML VIAL IV PRN (15:34)
[2020-05-08] MEDS ORDERED: ONDANSETRON INJ 2 MG/ML 2 ML VIAL IV PRN (15:34)
[2020-05-08] MEDS ORDERED: ATROPINE SULFATE 0.1 MG/ML 10ML SYR IV PRN (15:34)
--- NOTE | 2020-05-08 15:36 | History & Physical Bridge Note ---
Date of Service May 08, 2020 History & Physical Bridge Note I have examined the patient, reviewed the History & Physical and in the interval since the performance of the History & Physical I have noted the following changes of clinical significance: no changes noted. We are planning to proceed with upper endoscopy and endoscopic ultrasound given the patient's history of discomfort and question of a filling defect on MRCP. If a stone is seen we will then proceed with ERCP.
[2020-05-08] MEDS ORDERED: INDOMETHACIN 50 MG SUPP PR ONE (15:56)
[2020-05-08] MEDS ORDERED: ONDANSETRON INJ 2 MG/ML 2 ML VIAL ONE (16:26)
[2020-05-08] MEDS ORDERED: PROPOFOL IV EMULSION 10 MG/ML 20 ML VIAL IV ONE (16:26)
[2020-05-08] MEDS ORDERED: LIDOCAINE HCL 2% 2 ML VIAL/AMP(20MG/ML) INFIL ONE (16:26)
--- NOTE | 2020-05-08 16:40 | GI REPORT ---
Patient Name: Daphnie Banks Procedure Date: 05/08/2020 3:46 PM Date of : 1935 Admit Type: Inpatient Age: 84 Gender: Female Attending MD: Margarita Morgan DO Procedure: Upper EUS Providers: Margarita Morgan DO Referring MD: Niraj Beckett Indications: Choledocholithiasis on MRCP Medicines: General Anesthesia Complications: No immediate complications. Estimated blood loss: Minimal. Estimated Blood Loss: Estimated blood loss was minimal. Procedure: Pre-Anesthesia Assessment: - Prior to the procedure, a History and Physical was performed, and patient medications, allergies and sensitivities were reviewed. The patient's tolerance of previous anesthesia was reviewed. - The patient is unable to give consent secondary to the patient's altered mental status. The alternatives, risks and benefits of the procedure were discussed at length with the patient's son. The patient's proxy verbalized understanding of the risks as well as the alternatives and wished to proceed with the procedure. - Patient identification and proposed procedure were verified prior to the procedure by the physician, the nurse and the account manager relief. The procedure was verified in the procedure room. - Pre-procedure physical examination revealed no contraindications to sedation. - ASA Grade Assessment: III - A patient with severe systemic disease. - After reviewing the risks and benefits, the patient was deemed in satisfactory condition to undergo the procedure. - The anesthesia plan was to use general anesthesia. - Immediately prior to administration of medications, the patient was re-assessed for adequacy to receive sedatives. - The heart rate, respiratory rate, oxygen saturations, blood pressure, adequacy of pulmonary ventilation, and response to care were monitored throughout the procedure. - The physical status of the patient was re-assessed after the procedure. After obtaining informed consent, the endoscope was passed under direct vision. Throughout the procedure, the patient's blood pressure, pulse, and oxygen saturations were monitored continuously. The Endosonoscope was introduced through the mouth, and advanced to the second part of duodenum. The upper EUS was accomplished without difficulty. The patient tolerated the procedure well. Findings: ENDOSONOGRAPHIC FINDING: : There was dilation in the common bile duct which measured up to 9 mm. Two stones were visualized endosonographically in the common bile duct. The stones measured up to 5 mm in greatest dimension. They were hyperechoic and characterized by shadowing. Multiple stones and sludge were visualized endosonographically in the gallbladder. They were hyperechoic and characterized by shadowing. There was no sign of significant endosonographic abnormality in the left lobe of the liver. Homogeneous parenchyma and no masses were identified. There was no sign of significant endosonographic abnormality in the entire pancreas. The pancreatic duct measured up to 3 mm in diameter. No pathologic lymphadenopathy, no masses, the pancreatic duct was thin in caliber. No lymphadenopathy seen. On endosonographic examination, the left adrenal gland appeared mildly enlarged. It measured 22 mm by 12 mm in maximal cross-sectional diameter. Impression: - There was dilation in the common bile duct which measured up to 9 mm. - Two stones were visualized endosonographically in the common bile duct. - Multiple stones were visualized endosonographically in the gallbladder. - There was no evidence of significant pathology in the left lobe of the liver. - There was no sign of significant pathology in the entire pancreas. - The left adrenal gland appeared mildly enlarged on endosonographic examination. - No specimens collected. Recommendation: - Perform an ERCP today. Margarita Morgan D.O. Margarita Morgan, 05/08/2020 4:39:36 PM This report has been signed electronically. Note Initiated On: 05/08/2020 3:46 PM Number of Addenda: 0 I attest to the content of the Intraoperative Record and orders documented therein, exceptions below {[id number]}
[2020-05-08] MEDS ORDERED: INDOMETHACIN 50 MG SUPP PR SCH (17:00)
--- NOTE | 2020-05-08 17:13 | Post Operative Brief Note ---
Immediate Post Op Note v1 Date of Surgery May 08, 2020 Pre & Post Diagnosis Operation Date: 05/08/20 07:00 Pre-Op Diagnosis: common bile duct stones Post-Op Diagnosis: common bile duct stones, gallstones and cholangitis Operation Date: 05/09/20 11:20 <No data on this case meets the specified criteria> I identified the patient and participated in the time-out.: Yes Procedure Operation Date: 05/08/20 07:00 Actual Procedures p Endoscopic Gastrointestinal,Endoscopic Ultrasound and Endosopic Retrograde Cholangiopancreatogram, sphincterotomy, biliary stent placement (Not Applicable) - Margarita Morgan Operation Date: 05/09/20 11:20 <No data on this case meets the specified criteria> Surgeon Margarita Morgan Set Up Operator Tool [id number] Estimated Blood Loss 0 Findings Consistent with Post-Op Diagnosis
--- NOTE | 2020-05-08 17:16 | GI REPORT ---
Patient Name: Daphnie Banks Procedure Date: 05/08/2020 3:45 PM Date of : 1935 Admit Type: Inpatient Age: 84 Gender: Female Attending MD: Margarita Morgan DO Procedure: Upper GI endoscopy Providers: Margarita Morgan DO Referring MD: Niraj Beckett Indications: Epigastric abdominal pain, Abnormal MRI of the GI tract Medicines: General Anesthesia Complications: No immediate complications. Estimated blood loss: Minimal. Estimated Blood Loss: Estimated blood loss was minimal. Procedure: Pre-Anesthesia Assessment: - Prior to the procedure, a History and Physical was performed, and patient medications, allergies and sensitivities were reviewed. The patient's tolerance of previous anesthesia was reviewed. - The patient is unable to give consent secondary to the patient's altered mental status. The alternatives, risks and benefits of the procedure were discussed at length with the patient's son. The patient's proxy verbalized understanding of the risks as well as the alternatives and wished to proceed with the procedure. - Patient identification and proposed procedure were verified prior to the procedure by the physician, the nurse and the radio interference supervisor. The procedure was verified in the procedure room. - Pre-procedure physical examination revealed no contraindications to sedation. - ASA Grade Assessment: III - A patient with severe systemic disease. - After reviewing the risks and benefits, the patient was deemed in satisfactory condition to undergo the procedure. - The anesthesia plan was to use general anesthesia. - Immediately prior to administration of medications, the patient was re-assessed for adequacy to receive sedatives. - The heart rate, respiratory rate, oxygen saturations, blood pressure, adequacy of pulmonary ventilation, and response to care were monitored throughout the procedure. - The physical status of the patient was re-assessed after the procedure. After obtaining informed consent, the endoscope was passed under direct vision. Throughout the procedure, the patient's blood pressure, pulse, and oxygen saturations were monitored continuously. The Endoscope was introduced through the mouth, and advanced to the third part of duodenum. The upper GI endoscopy was accomplished without difficulty. The patient tolerated the procedure well. Findings: The examined esophagus was normal. The Z-line was regular and was found 35 cm from the incisors. The gastric fundus, incisura and gastric antrum were normal. Evidence of a previous surgical scar was found in the gastric body, 3 to 4 cm in length. The examined duodenum was normal. Impression: - Normal esophagus. - Z-line regular, 35 cm from the incisors. - A previous surgical scar was found along the gastric body. - Normal examined duodenum. - No specimens collected. Recommendation: - Perform an upper endoscopic ultrasound (UEUS) today. Margarita Morgan D.O. Margarita Morgan, 05/08/2020 5:16:30 PM This report has been signed electronically. Note Initiated On: 05/08/2020 3:45 PM Number of Addenda: 0 I attest to the content of the Intraoperative Record and orders documented therein, exceptions below {[id number]}
--- NOTE | 2020-05-08 17:24 | GI REPORT ---
Patient Name: Daphnie Banks Procedure Date: 05/08/2020 3:31 PM Date of : 1935 Admit Type: Inpatient Age: 84 Gender: Female Attending MD: Margarita Morgan DO Procedure: ERCP Providers: Margarita Morgan DO Referring MD: Niraj Beckett Indications: Abdominal pain of suspected biliary origin, Abnormal MRCP, Abnormal endoscopic ultrasound of the biliary system, For therapy of bile duct stone(s) Medicines: General Anesthesia Complications: No immediate complications. Estimated blood loss: Minimal. Estimated Blood Loss: Estimated blood loss was minimal. Procedure: Pre-Anesthesia Assessment: - Prior to the procedure, a History and Physical was performed, and patient medications, allergies and sensitivities were reviewed. The patient's tolerance of previous anesthesia was reviewed. - Patient identification and proposed procedure were verified prior to the procedure by the physician, the nurse and the product development technician. The procedure was verified in the pre-procedure area in the procedure room. - The patient is unable to give consent secondary to the patient's altered mental status. The alternatives, risks and benefits of the procedure were discussed at length with the patient's son. The patient's proxy verbalized understanding of the risks as well as the alternatives and wished to proceed with the procedure. - Pre-procedure physical examination revealed no contraindications to sedation. - ASA Grade Assessment: III - A patient with severe systemic disease. - After reviewing the risks and benefits, the patient was deemed in satisfactory condition to undergo the procedure. - The anesthesia plan was to use general anesthesia. - Immediately prior to administration of medications, the patient was re-assessed for adequacy to receive sedatives. - The heart rate, respiratory rate, oxygen saturations, blood pressure, adequacy of pulmonary ventilation, and response to care were monitored throughout the procedure. - The physical status of the patient was re-assessed after the procedure. After obtaining informed consent, the scope was passed under direct vision. Throughout the procedure, the patient's blood pressure, pulse, and oxygen saturations were monitored continuously. The Scope was introduced through the mouth, and advanced to the duodenum and used to inject contrast into the bile duct. The ERCP was accomplished without difficulty. The patient tolerated the procedure well. Findings: A clinical trainer film of the abdomen was obtained and notable for orthopadic spinal hardware, this made visualization of the distal duct difficult. The esophagus was successfully intubated under direct vision without detailed examination of the pharynx, larynx, and associated structures, and upper GI tract. The upper GI tract was grossly normal. The major papilla was congested and difficult to identify (small in size). The bile duct was deeply cannulated with the short-nosed traction sphincterotome ([employer] Rx 39) and 0.025 in straight guidewire. Contrast was injected. I personally interpreted the bile duct images. Contrast extended to the entire biliary tree (cystic duct not seen). The biliary orifice was stenotic. This appeared benign. The lower third of the main bile duct contained filling defect(s) thought to be a stone. Biliary sphincterotomy was made with a monofilament Dreamtome sphincterotome using ERBE electrocautery. There was no post-sphincterotomy bleeding. To disobjects, the biliary tree was swept with a 15 mm balloon starting at the bifurcation. Two darkly pigmented stones were removed. No stones remained. Pus was swept from the duct, therefore, one 10 Fr by 7 cm biliary stent with a single external flap and a single internal flap was placed 7 cm into the common bile duct. Bile flowed through the stent. The stent was in good position. The endoscope was withdrawn from the patient. The total fluoroscopy exposure time was 51 seconds. Indomethacin 100 mg was given via suppository to decrease the risk of post-ERCP pancreatitis (PEP). Impression: - The major papilla appeared congested. - Biliary papillary stenosis, benign. - A filling defect consistent with a stone was seen on the cholangiogram. - Choledocholithiasis and cholangitis was found. Complete removal was accomplished by biliary sphincterotomy and balloon extraction. - One biliary stent was placed into the common bile duct. - Indomethacin given to decrease risk of post-ERCP pancreatitis. Recommendation: - Avoid aspirin and nonsteroidal anti-inflammatory medicines for 1 week. - Repeat ERCP in 6 weeks to remove stent. - Cholecystectomy per general surgery. Margarita Morgan D.O. Margarita Morgan, 05/08/2020 5:24:11 PM This report has been signed electronically. Note Initiated On: 05/08/2020 3:31 PM Number of Addenda: 0 I attest to the content of the Intraoperative Record and orders documented therein, exceptions below {[id number]}
--- NOTE | 2020-05-08 17:24 | Fluoroscopy Report ---
INTRAOPERATIVE RADIOGRAPHS CLINICAL HISTORY: ERCP. Duct expiration. Fluoroscopy time: 52 seconds. FINDINGS: 9 spot fluoroscopic views of the right upper quadrant from an ERCP procedure are correlated with MRCP dated 05/07/2020. Initial image shows the endoscope projecting over the stomach with cannul ation of the common bile duct. The common bile duct appears dilated. Subsequent images show a sweep o f the duct is performed. A common bile duct stent is in place on the final 2 images. Lumbar spinal fu jax hardware is in place. IMPRESSION: Intraoperative ERCP images as above with common bile duct stent placement. See operative report for detailed findings. Electronically signed by: Jameel Martino M.D. 05/08/2020 5:23 PM
[2020-05-08] MEDS ORDERED: IOVERSOL 50ml IV ONE (17:52)
--- NOTE | 2020-05-08 18:53 | Anesthesiology Progress Note ---
Date of Service May 08, 2020 Anesthesia Post Procedure Vital Signs Vital Signs: Temp Pulse Pulse Resp BP Pulse Ox 05/08/20 18:47 37.3 C 58 L 18 159/78 H 99 05/08/20 18:32 37.1 C 58 L 18 164/76 H 99 05/08/20 18:05 56 L 21 150/79 H 99 05/08/20 17:55 36.9 C 55 L 22 149/74 H 99 05/08/20 17:45 58 L 20 153/70 H 98 05/08/20 17:39 36.1 C L 70 23 157/87 H 96 05/08/20 15:33 37 C 64 20 118/61 95 05/08/20 15:09 37 C 60 14 101/57 L 95 05/08/20 07:43 36.5 C 62 16 106/63 94 05/07/20 23:32 36.8 C 62 24 103/58 L 91 Pain Intensity Right Upper Abdomen: Pain Intensity: 3 Transfer of Care Handoff Completed per policy Notes Mental Status: alert / awake / arousable Patient Amnestic to Procedure: Yes Nausea / Vomiting: adequately controlled Pain: adequately controlled Airway Patency, RR, SpO2: stable & adequate BP & HR: stable & adequate Hydration State: stable & adequate Anesthetic Complications: no major complications apparent
--- NOTE | 2020-05-08 20:03 | Hospitalist Progress Note ---
Date of Service May 08, 2020 Assessment & Plan (1) Cholangitis: s/p ERCP today by [facility]. Purulence seen in CBD. Stone seen and extracted. CBD stent placed. Cont IV zosyn. Lap tim tomorrow. Labs am. Appreciate [facility] assistance. (2) Choledocholithiasis: as seen on ERCP today s/p extraction and stent placement see above (3) Acute cholecystitis: as seen on imaging at admission. cont zosyn. cont IV fluids. cont pain meds. NPO. holding xarelto appreciate gen surg consultation and GI consultation. lap tim tomorrow pre-op COVID testing pending (4) T11 vertebral fracture: subacute. callus formation already seen on imaging. no pain - found incidentally. spoke with spine surgery - nothing to do at this time. conservative management. defer on MRI imaging unless she has symptoms/signs of neuro compromise. check 25-OH vit D level am (5) Dementia: noted cont aricept cont namenda due to Parkinson's? (6) Hypertension: BPs low-normal cont to hold PO lasix (7) Hyperlipidemia: not on meds for such (8) Parkinsons: cont sinemet (9) Atrial fibrillation: examines normal sinus rhythm again today HOLD XARELTO cont amiodarone (10) Chronic kidney disease, stage 3a: Cr stable BMP in am (11) DVT prophylaxis: holding xarelto for upcoming lap tim SCDs in meantime cont IV fluids updated daughter by phone 05/07 left message for daughter 05/08 Admission and Anticipated Discharge Date Admission Date: May 06, 2020 Subjective saw patient prior to having her ERCP. was resting comfortably. she knew she needed her gall bladder removed. but was confused and very weak. reported she needed to use the commode. staff came in and assisted her - she was 2 person assist to get to standing position. Review of Systems Respiratory: no dyspnea Cardiovascular: no chest pain Gastrointestinal: + abdominal pain and + bloating; no nausea and no vomiting Physical Exam Constitutional: + altered mental status; no acute distress Eyes: + anicteric sclerae ENMT: external ear and nose normal, oropharynx normal Respiratory: normal respiratory effort, lungs clear to auscultation Cardiovascular: Rate/Rhythm: regular rate and regular rhythm Heart Sounds: normal S1 and normal S2; no murmur Vessels: posterior tibial pulses present and dorsalis pedis pulses present; no JVD Extremities: no edema Gastrointestinal (Abdomen): Inspection/Auscultation: + abdomen distended (No change from yesterday's exam) and normal bowel sounds Percussion/Palpation: + abdomen tender (Epigastric region ); no guarding and no hepatosplenomegaly Psychiatric: Orientation: alert, oriented to person and oriented to place; + not oriented to time Results & Data Results & Data ([facility]) Vital Signs (Past 12 Hours) Vital Signs Temp Pulse Pulse Resp BP Pulse Ox 05/08/20 19:27 36.5 C 62 18 154/74 H 98 05/08/20 18:56 37.1 C 58 L 17 156/78 H 99 05/08/20 18:47 37.3 C 58 L 18 159/78 H 99 05/08/20 18:32 37.1 C 58 L 18 164/76 H 99 05/08/20 18:05 56 L 21 150/79 H 99 05/08/20 17:55 36.9 C 55 L 22 149/74 H 99 05/08/20 17:45 58 L 20 153/70 H 98 05/08/20 17:39 36.1 C L 70 23 157/87 H 96 05/08/20 15:33 37 C 64 20 118/61 95 05/08/20 15:09 37 C 60 14 101/57 L 95 Laboratory Results Laboratory Results - last 24 hr 05/08/20 05/08/20 05:44 12:30 Sodium 140 Potassium 3.2 L D Chloride 108 H Carbon Dioxide 26 Anion Gap 6.0 BUN 22 H Creatinine 1.07 Est Cr Clr Drug Dosing 41.4 Est GFR ( Amer) 55.6 Est GFR (Non-Af Amer) 48.0 BUN/Creatinine Ratio 20.6 H Glucose 88 Calcium 8.3 L Total Bilirubin 1.6 H AST 16 ALT < 6 L Alkaline Phosphatase 118 H Total Protein 6.0 L Albumin 2.8 L Globulin 3.2 Albumin/Globulin Ratio 0.9 SARS-CoV-2 RNA (RT-PCR) Cancelled PG Care Time/CCT Total # of Minutes Spent Total Time Spent with Patient: Total time spent is greater than 50% in coordination of care (as documented) at patient's floor/unit and/or counseling patient: Coding Level of Care Code 27562 Subseq Hosp Care Lvl 2 Diagnoses Cholangitis K83.09 Choledocholithiasis K80.50 Acute cholecystitis K81.0 T11 vertebral fracture S22.089A Encounter type: initial encounter Fracture morphology: unspecified fracture morphology Fracture type: closed Dementia G20; F02.80 Dementia behavioral disturbance: without behavioral disturbance Dementia type: Parkinson's disease Hypertension I10 Hyperlipidemia E78.5 Parkinsons G20 Atrial fibrillation I48.0 Atrial fibrillation type: paroxysmal Chronic kidney disease, stage 3a N18.3 DVT prophylaxis Z29.9 (1) Atrial fibrillation Atrial fibrillation type: paroxysmal Qualified Code(s): I48.0 - Paroxysmal atrial fibrillation (2) Dementia Dementia behavioral disturbance: without behavioral disturbance Dementia type: Parkinson's disease Qualified Code(s): G20 - Parkinson's disease; F02.80 - Dementia in other diseases classified elsewhere without behavioral disturbance (3) T11 vertebral fracture Encounter type: initial encounter Fracture morphology: unspecified fracture morphology Fracture type: closed Qualified Code(s): S22.089A - Unspecified fracture of T11-T12 vertebra, initial encounter for closed fracture
[2020-05-08] MEDS: AMIODARONE 200 MG TAB PO SCH (21:13)
[2020-05-08] MEDS: DONEPEZIL HCL 10 MG TAB PO SCH (21:13)
[2020-05-08] MEDS: TRAZODONE HCL 50 MG TAB PO SCH (21:13)
[2020-05-08] MEDS: clonazePAM 0.5 MG TAB PO SCH (21:30)
[2020-05-08] MEDS: D5NSS + 20MEQ KCL 20 MEQ/1,000 ML BAG IV SCH ×2 (21:39→23:11)
[2020-05-09] MEDS: CARBIDOPA/LEVODOPA 50/200MG EXT REL TAB PO SCH ×2 (05:43→17:51)
[2020-05-09] MEDS: PIPERACILLIN/TAZOBACTAM 3.375 GM in DEXTROSE 5% 100 ML IV SCH ×3 (05:43→21:47)
[2020-05-09] MEDS: ESCITALOPRAM OXALATE 10 MG TAB PO SCH (08:14)
[2020-05-09] MEDS: MEMANTINE HCL 10 MG TAB PO SCH ×2 (08:14→21:43)
[2020-05-09] MEDS: CARBIDOPA/LEVODOPA 25/100MG TAB PO SCH ×4 (08:14→21:44)
[2020-05-09 08:38] LABS: Hematocrit (blood only) 36.7 % (37-47); Hemoglobin 11.5 g/dL (12.0-16.0); Mean Corpuscular Hgb Conc 31.3 g/dL (32-36); Mean Corpuscular Volume 95.8 fL (80-100); Mean Platelet Volume 10.6 fL (7.4-10.4); Platelet Count 185 K/uL (130-400); RDW Standard Deviation 52.3 fL (36.4-46.3); Red Blood Count 3.83 M/uL (4.2-5.4); White Blood Count 8.85 K/uL (4.8-10.8)
--- NOTE | 2020-05-09 08:38 | Surgery Progress Note ---
Date of Service May 09, 2020 Assessment & Plan (1) Acute cholecystitis: 84-year-old female with choledocholithiasis cholecystitis and cholangitis status post ear PCP with stent placement. Labs pending this morning. Plan for laparoscopic cholecystectomy possible cholangiogram today in the operating room I discussed the surgery with the patient's daughter and her son who is the power of claim attorney yesterday, and they are agreeable to the plan The risk of the surgery were discussed to include but not limited to bleeding, infection, retained stone, bile leak, damage surrounding structures, conversion open, need for future more extensive surgery, and the risk of anesthesia COVID negative Continue antibiotics (2) Cholangitis: Subjective 84-year-old female admitted with cholelithiasis and cholecystitis. ERCP yesterday positive for choledocholithiasis and cholangitis. Stent placed. This morning she is doing well with minimal pain. Physical Exam Constitutional: WD/WN, vitals as above Gastrointestinal (Abdomen): normal bowel sounds, soft, nontender, no hepatosplenomegaly Results & Data Vital Signs (Past 12 Hours) Vital Signs Temp Pulse Resp BP Pulse Ox 05/09/20 07:07 36.4 C L 49 L 16 110/71 96 05/09/20 03:47 36.4 C L 47 L 16 114/69 99 05/08/20 21:29 36.5 C 55 L 18 148/74 H 97 PG Care Time/CCT Total # of Minutes Spent Total Time Spent with Patient: Total time spent is greater than 50% in coordination of care (as documented) at patient's floor/unit and/or counseling patient: Coding Level of Care Code 93245 Inpt Consult Level 2 Diagnoses Acute cholecystitis K81.0 Cholangitis K83.09
[2020-05-09 08:55] LABS: Albumin Level 2.6 gm/dl (3.4-5.0); BUN Creatinine Ratio 17.6 (10-20); Calcium 8.6 mg/dl (8.5-10.1); Creatinine Clr Calc Pharmacy 39.5 ml/min; Est GFR (African American) 52.6; Est GFR (Non-African American) 45.4; Magnesium 2.4 mg/dl (1.8-2.4); Potassium 3.5 mmol/L (3.5-5.1)
[2020-05-09 08:58] LABS: Albumin Globulin Ratio 0.7 (0.9-2); Bilirubin,Total 1.3 mg/dl (0.2-1); Globulin 3.7 gm/dl (2.5-4.0); Total Protein 6.3 gm/dl (6.4-8.2)
[2020-05-09] MEDS ORDERED: DEXAMETHASONE SOD INJ 4 MG/ML VIAL ONE (09:00)
[2020-05-09] MEDS ORDERED: GLYCOPYRROLATE 0.2 MG/ML VIAL ONE ×2 (09:00→09:44)
[2020-05-09] MEDS ORDERED: LIDOCAINE HCL 2% 2 ML VIAL/AMP(20MG/ML) INFIL ONE (09:00)
[2020-05-09] MEDS ORDERED: ONDANSETRON INJ 2 MG/ML 2 ML VIAL ONE (09:00)
[2020-05-09] MEDS ORDERED: PROPOFOL IV EMULSION 10 MG/ML 20 ML VIAL IV ONE (09:00)
[2020-05-09] MEDS ORDERED: fentaNYL citrate 100 MCG/2 ML VIAL ONE ×2 (09:00→10:14)
[2020-05-09] MEDS ORDERED: ROCURONIUM BROMIDE 10 MG/ML 5 ML VIAL IV ONE (09:00)
[2020-05-09] MEDS ORDERED: NEOSTIGMINE METHYLSULFATE 5 MG/5 ML SYR ONE (09:00)
[2020-05-09] MEDS ORDERED: ATROPINE SULFATE 0.1 MG/ML 10ML SYR IV PRN (09:02)
[2020-05-09] MEDS ORDERED: ePHEDrine sulfate 50 MG/ML AMP IV PRN (09:02)
[2020-05-09] MEDS ORDERED: ONDANSETRON INJ 2 MG/ML 2 ML VIAL IV PRN (09:02)
[2020-05-09] MEDS ORDERED: HYDROmorphone INJ 2 MG/ML SYR/VIAL IV PRN (09:02)
[2020-05-09] MEDS ORDERED: fentaNYL citrate 100 MCG/2 ML VIAL IV PRN (09:02)
--- NOTE | 2020-05-09 09:05 | Anesthesiology Consultation ---
Date of Service May 09, 2020 Assessment & Plan ASA ASA3 Proposed Anesthesia Anesthesia Type: General Risk / Benefits Reviewed With: PT / POA / Parent / Guardian, Accepts Plan and Informed Consent Obtained History Surgery Operation Date: 05/08/20 07:00 Proposed Procedures p Endoscopic Retrograde Cholangiopancreatogram - Margarita Morgan Operation Date: 05/09/20 11:20 Proposed Procedures p Laparoscopic Cholecystectomy, Possible Cholangiogram - David Goddard, DO, FACS Height/Weight Height: 5 ft 3 in Weight: 85.9 kg Allergies Allergy/AdvReac Type Severity Reaction Status Date / Time succinylcholine Allergy Severe PSEUDO-CHOLINESTERASE Verified 05/06/20 21:48 DEFICIENCY Medications Home Medications Medication Instructions Recorded Confirmed Last Taken polyethylene glycol 3350 [Miralax] 17 g PO DAILY PRN 11/01/18 05/06/20 05/06/20 white petrolatum-mineral oil 1 applic OPB UD PRN 11/01/18 05/06/20 05/05/20 [Artificial Tears (kathy/min)] miscellaneous medical supply #1 ea 07/15/19 03/29/20 Unknown miscellaneous medical supply #200 ea 08/18/19 03/29/20 Unknown carbidopa ER 50 mg-levodopa 200 mg 1 tab PO BID 90 Days #180 tab 10/03/19 05/06/20 05/06/20 06:00 tablet,extended release alendronate 70 mg tablet 70 mg PO WK #12 tab 11/24/19 05/06/20 05/05/20 amiodarone 200 mg tablet 200 mg PO QPM #90 tab 11/24/19 05/06/20 05/05/20 20:00 furosemide 40 mg tablet 20 mg PO DAILY #45 tab 11/24/19 05/06/20 05/06/20 memantine 10 mg tablet 10 mg PO BID #180 tab 12/12/19 05/06/20 05/06/20 10:00 carbidopa 25 mg-levodopa 250 mg 1 tab PO TID PRN 90 Days #270 tab 01/11/20 05/06/20 05/06/20 14:30 disintegrating tablet carbidopa 25 mg-levodopa 100 mg 3 tab PO QID 90 Days #1080 tab 03/08/20 05/06/20 05/06/20 14:00 tablet trazodone 50 mg tablet 25 mg PO HS #15 tab 03/15/20 05/06/20 05/05/20 donepezil 10 mg tablet 10 mg PO HS 90 Days #90 tab 03/27/20 05/06/20 05/05/20 clonazepam 0.5 mg disintegrating 0.5 mg PO HS 30 Days #30 tab 04/03/20 05/06/20 05/05/20 tablet miscellaneous medical supply #1 ea 04/17/20 Unknown escitalopram oxalate 15 mg PO DAILY 05/06/20 05/06/20 05/05/20 rivaroxaban [Xarelto] 15 mg PO HS 05/06/20 05/06/20 05/05/20 Active Medications Generic Name Dose Route Start Last Admin Trade Name Freq PRN Reason Stop Dose Admin Acetaminophen 650 mg 05/07/20 00:05 05/07/20 05:18 Tylenol PO 06/06/20 00:04 650 mg Q4H PRN Administration pain/fever Amiodarone HCl 200 mg 05/07/20 21:00 05/08/20 21:13 Cordarone PO 06/06/20 20:59 200 mg QPM DEANNE Administration Carbidopa/Levodopa 1 tab 05/07/20 06:00 05/09/20 05:43 Sinemet Cr 50/200mg PO 06/06/20 05:59 1 tab BID@0600,1800 DEANNE Administration Carbidopa/Levodopa 3 tab 05/07/20 09:00 05/09/20 08:14 Sinemet 25/100 Mg PO 06/06/20 08:59 3 tab QID DEANNE Administration Clonazepam 0.5 mg 05/07/20 01:00 05/08/20 21:30 Klonopin PO 06/06/20 00:59 0.5 mg HS DEANNE Administration Donepezil HCl 10 mg 05/07/20 21:00 05/08/20 21:13 Aricept PO 06/06/20 20:59 10 mg HS DEANNE Administration Escitalopram Oxalate 15 mg 05/07/20 09:00 05/09/20 08:14 Lexapro Tab PO 06/06/20 08:59 15 mg DAILY DEANNE Administration Furosemide 20 mg 05/07/20 09:00 05/07/20 07:44 Lasix PO 06/06/20 08:59 20 mg DAILY DEANNE Administration Piperacillin Sod/Tazobactam 115 mls @ 28.75 mls/hr 05/07/20 06:00 05/09/20 05:43 Sod 3.375 gm/ Dextrose IV 05/17/20 05:59 28.8 mls/hr Q8H DEANNE Administration Protocol Potassium Chloride/Dextrose/Sod Cl 20 meq in 1,000 mls @ 75 mls/hr 05/08/20 22:28 05/08/20 23:11 D5nss + 20meq Kcl IV 06/07/20 22:27 75 mls/hr .[id number] DEANNE Administration Memantine 10 mg 05/07/20 09:00 05/09/20 08:14 Namenda PO 06/06/20 08:59 10 mg BID DEANNE Administration Trazodone HCl 25 mg 05/07/20 21:00 05/08/20 21:13 Desyrel PO 06/06/20 20:59 25 mg HS DEANNE Administration NPO Date Last Intake of Fluids: 05/09/20 Time Last Intake of Fluids: 08:00 Last Intake of Fluids Comment: sips of water with pills this am Date Last Intake of Solids: 05/07/20 Time Last Intake of Solids: 18:00 Past Medical History Medical History Anxiety Arthritis Atrial fibrillation Bradycardia Chronic lower back pain Constipation Dementia Gastro-esophageal reflux Hearing loss History of Clostridioides difficile colitis Hyperlipidemia Hyperparathyroidism Hypertension Macular degeneration Mitral regurgitation Neuropathy Osteoporosis Parkinsons Spinal stenosis of lumbar region with radiculopathy Urinary incontinence Venous insufficiency Venous stasis dermatitis Vitamin D deficiency disease Exercise / Class Metabolic Activity III < 4 Walking/Shop/Light housework Past Family History Family History Mother Cancer Brain cancer Hypertension Brother Colon cancer Heart disease Colorectal cancer Father Myocardial infarction Hypertension Sister Colorectal cancer Sister Colorectal cancer Family/Other Breast cancer Daughter Thyroid cancer Denies family history of Ovarian cancer Prostate cancer Past Surgical History Surgical History History of abdominal surgery REMOVED A TUMOR WITH A BLEEDING ULCER(BENIGN) History of cataract surgery History of knee replacement, total History of lumbar fusion Hx of varicose vein ligation Status post repair of nerve NEUROPLASTY DECOMPRESSION MEDIAN NERVE AT CARPAL TUNNEL, LEFT-HAND Past Anesthesia History No Hx of Anesthesia Complications and No Family Hx of Anesthesia Complications History of PONV No Hx of PONV and No Hx of Motion Sickness Social History Smoking Status: Never smoker Hx Alcohol Use: Yes Alcohol type: hard liquor alcohol intake frequency: holidays/special occasions only Hx Substance Use: No Review of Systems denies fever/cough/ colds/ chest pain/ SOB/ DELPHINE Constitutional: no fever and no chills Respiratory: no cough and no dyspnea denies DELPHINE Cardiovascular: no chest pain and no dyspnea on exertion Physical Exam Vital Signs Last Vital Signs Temp 36.4 C L 05/09/20 08:47 Pulse 71 05/09/20 08:47 Resp 20 05/09/20 08:47 BP 128/58 L 05/09/20 08:47 Pulse Ox 96 05/09/20 08:47 ENMT Mouth: + dentures; no TMJ abnormality and no dentition abnormality Thyromental Distance: > or= 3.5 Finger Breadths Mallampati Class: II Neck neck extension not limited Respiratory normal respiratory effort; no respiratory distress Auscultation: lungs clear to auscultation bilaterally Cardiovascular Rate/Rhythm: regular rate and regular rhythm Neurologic moves all extremities Psychiatric Orientation: alert and oriented x 3 Testing Laboratory Results 05/09/20 08:26 05/09/20 08:26 PT 11.0 Seconds (9.0-12.0) 05/06/20 18:40 INR 1.0 (0.9-1.1) 05/06/20 18:40 APTT 31.5 Seconds (21.0-31.0) H 05/06/20 18:40 Urine Color Yellow 05/06/20 20:22 Urine Appearance Clear (Clear) 05/06/20 20:22 Urine pH 6.0 (4.5-7.5) 05/06/20 20:22 Ur Specific Ponce 1.028 (1.000-1.030) 05/06/20 20:22 Urine Protein Negative (Negative) 05/06/20 20:22 Urine Glucose (UA) Negative (Negative) 05/06/20 20:22 Urine Ketones Trace (Negative) H 05/06/20 20:22 Urine Nitrite Negative (Negative) 05/06/20 20:22 Ur Leukocyte Esterase Negative (Negative) 05/06/20 20:22
--- NOTE | 2020-05-09 09:22 | History & Physical Bridge Note ---
Date of Service May 09, 2020 History & Physical Bridge Note I have examined the patient, reviewed the History & Physical and in the interval since the performance of the History & Physical I have noted the following changes of clinical significance: Plan for laparoscopic cholecystectomy with possible cholangiogram. I obtained consent over the phone from her son Rodrigue who is the power of commercial real estate attorney. Both nursing and anesthesia were present to confirm this. No changes noted
--- NOTE | 2020-05-09 09:30 | Gastroenterology Progress Note ---
Date of Service May 09, 2020 Assessment & Plan (1) Acute cholecystitis: 84 year old female admitted w/ acute cholecystitis, MRCP w/ CBD stone s/p ERCP for stone removal, evidence of cholangitis on examination CCY per general surgery ERCP for stent removal in 6 weeks No NSAIDs for 1 week Continue ABX Will sign off. Thank you for allowing us to participate in the care of this patient. Please call with any acute changes, questions or concerns. Please see addendum below with additional recommendation from my supervising physician. Admission and Anticipated Discharge Date Admission Date: May 06, 2020 Anticipated date of discharge: 05/08/20 Supervising Physician Co-Signing Physician Notes The patient was in the OR at the time of our rounds, labs appear to be unchanged this morning. She does not have leukocytosis and her liver enzymes appear to be within normal limits. Recommendations 2-week course of broad-spectrum antibiotics for treatment of cholangitis Repeat ERCP in 4 to 6 weeks for bile duct stent removal Avoid nonsteroidals for 1 week Avoid anticoagulation medications for 1 week Please call with any questions or concerns. Subjective 84-year-old female admitted with cholelithiasis and cholecystitis. S/P ERCP yesterday w/ evidence of cholangitis and choledocholithiasis. Stent placed. This morning she is doing well with minimal pain. More awake. NPO for CCY. Physical Exam Gastrointestinal (Abdomen): normal bowel sounds, soft, nontender, no hepatosplenomegaly Results & Data ([facility]) Vital Signs (Past 12 Hours) Vital Signs Temp Pulse Resp BP Pulse Ox 05/09/20 08:47 36.4 C L 71 20 128/58 L 96 05/09/20 07:07 36.4 C L 49 L 16 110/71 96 05/09/20 03:47 36.4 C L 47 L 16 114/69 99
[2020-05-09] MEDS ORDERED: BUPIVACAINE 0.5 % 5 MG/1 ML MPF 30ML VIAL ONE (09:32)
[2020-05-09] MEDS ORDERED: ePHEDrine sulfate 50 MG/ML AMP ONE (09:53)
[2020-05-09] MEDS ORDERED: ePHEDrine sulfate 50 MG/ML SYR ONE (10:10)
[2020-05-09] MEDS ORDERED: SURGICEL ABSORB HEMOSTAT 2IN X 14IN TOP ONE (11:04)
--- NOTE | 2020-05-09 11:16 | Operative Report ---
PG Post Operative Report Pre & Post Diagnosis Operation Date: 05/09/20 11:20 Pre-Op Diagnosis: Acute Cholecystitis and Cholelangitis Post-Op Diagnosis: Acute Cholecystitis and Cholelangitis I identified the patient and participated in the time-out.: Yes Procedure Operation Date: 05/09/20 11:20 Actual Procedures p Laparoscopic Cholecystectomy - David Goddard DO, JAGDISH Surgeon David Goddard DO, JAGDISH Machinist [employer] Mery Beltran Estimated Blood Loss 40 Findings Consistent with Post-Op Diagnosis Severe acute on chronic cholecystitis. Omental adhesions taken down. Critical view of safety obtained. Cystic duct and artery doubly clipped and divided. Oozing from liver bed controlled with cautery followed by Surgicel. Good hemostasis. 10 mm flat MELISSA drain placed. Specimens Gallbladder Drains 10mm MELISSA drain Anesthesia Type General Complications none Disposition Accompanied Patient To Recovery: No Disposition: Recovery Room Indications 84-year-old female admitted with cholelithiasis with acute cholecystitis, ERCP yesterday showed choledocholithiasis with cholangitis. Plan for laparoscopic cholecystectomy with possible cholangiogram. The risks of the procedure were discussed, all questions were answered, and the patient agreed to proceed with surgery as planned. Description of Procedure The patient was properly identified, consented, and taken to the operating room where she was placed in the supine position. General endotracheal anesthesia was induced. SCDs and a safety belt were placed. Preoperative antibiotics were administered. The patient's abdomen was prepped and draped in the standard sterile fashion. A surgical timeout was performed and all parties were in agreement that this was the correct patient and procedure to be performed and we continued as planned. An incision was made superior and to the left of the umbilicus overlying the rectus muscle and the Veress needle was inserted. Saline drop test confirmed entry into the peritoneum. The abdomen was insufflated with carbon dioxide which the patient tolerated without incident. The abdomen was then entered using the Optiview technique and a 5 mm trocar. The laparoscope was inserted and no damage from initial trocar or Veress needle placement was noted, no gross abnormalities were noted within the 4 quadrants of the abdomen. An 11 mm port was placed in the subxiphoid position and two 5 mm ports were then placed in the right subcostal position. The patient was placed in reverse Trendelenburg position and rotated towards the left. The gallbladder was significantly inflamed. Omental adhesions were taken down with blunt dissection and electrocautery. There were multiple large gallstones within the gallbladder and the gallbladder wall was thickened in the midportion making it difficult to retract. The dome of the gallbladder was retracted towards the left upper quadrant and the infundibulum was retracted toward the right lower quadrant revealing Calot's triangle. Peritoneal attachments were taken down with electrocautery and blunt dissection. The cystic duct and artery were circumferentially dissected. A window of safety was obtained showing the cystic duct entering the gallbladder with no aberrant structures noted. The cystic duct and artery were doubly clipped and divided. During retraction a grasper because a small hole in the gallbladder and purulent drainage was expressed. The gallbladder was then lifted off the gallbladder fossa with electrocautery. The gallbladder was placed in an Endo Catch bag and removed through the subxiphoid port site which needed to be extended for 2 cm to accommodate the large size of the gallstones and gallbladder. There was significant oozing from the gallbladder fossa. This was controlled with electrocautery but there was still some light oozing. A piece of Surgicel was placed into the liver bed and a Ray-Shaneka sponge was used to hold pressure for 5 minutes. The Ray-Shaneka was removed and the area irrigated. Hemostasis appeared to be good. The Surgicel was left in place. A 10 mm MELISSA drain was placed in the gallbladder fossa and exited through the right subcostal incision. This was secured into place with a 2-0 nylon suture. The right upper quadrant was copiously irrigated and hemostasis was found to be good. 5 mm trochars were removed under direct visualization and the abdomen was allowed to collapse. The subxiphoid port site fascia was closed with a running 0 Vicryl suture. The subxiphoid skin incision was closed with interrupted 3-0 Vicryl deep dermal sutures followed by 4-0 Monocryl running subcuticular suture. The wound was irrigated, and the skin of the remaining port sites were closed with 4-0 Monocryl subcuticular sutures. Dermabond was placed over the wounds. The patient was extubated in the operating room and taken to the PACU where she recovered without apparent incident. All sponge, instrument and needle counts were correct at the conclusion of the procedure. The patient tolerated the procedure well. The physician's press assistant was present and scrubbed for the entirety of the case and was essential in positioning the patient, prepping and draping, retraction and exposure, driving the laparoscope, removal of the gallbladder, closure the incisions, and placement of the dressings. I attest to the content of the Intraoperative Record and any orders documented therein. Any exceptions are noted below.
--- NOTE | 2020-05-09 12:05 | Anesthesiology Progress Note ---
Date of Service May 09, 2020 Anesthesia Post Procedure Vital Signs Vital Signs: Temp Pulse Pulse Resp BP Pulse Ox 05/09/20 12:00 65 18 151/70 H 97 05/09/20 11:50 35.6 C L 66 19 146/59 H 97 05/09/20 11:40 70 20 154/64 H 100 05/09/20 11:30 72 18 168/82 H 100 05/09/20 11:20 36.0 C L 78 23 171/92 H 100 05/09/20 08:47 36.4 C L 71 20 128/58 L 96 05/09/20 07:07 36.4 C L 49 L 16 110/71 96 05/09/20 03:47 36.4 C L 47 L 16 114/69 99 05/08/20 21:29 36.5 C 55 L 18 148/74 H 97 05/08/20 20:23 36.5 C 66 17 152/75 H 97 05/08/20 19:27 36.5 C 62 18 154/74 H 98 05/08/20 18:56 37.1 C 58 L 17 156/78 H 99 05/08/20 18:47 37.3 C 58 L 18 159/78 H 99 05/08/20 18:32 37.1 C 58 L 18 164/76 H 99 05/08/20 18:05 56 L 21 150/79 H 99 05/08/20 17:55 36.9 C 55 L 22 149/74 H 99 05/08/20 17:45 58 L 20 153/70 H 98 05/08/20 17:39 36.1 C L 70 23 157/87 H 96 05/08/20 15:33 37 C 64 20 118/61 95 05/08/20 15:09 37 C 60 14 101/57 L 95 Pain Intensity Right Upper Abdomen: Pain Intensity: 3 Abdomen: Pain Intensity: 2 Transfer of Care Handoff Completed per policy Notes Mental Status: alert / awake / arousable and participated in evaluation Patient Amnestic to Procedure: Yes Nausea / Vomiting: adequately controlled Pain: adequately controlled Airway Patency, RR, SpO2: stable & adequate BP & HR: stable & adequate Hydration State: stable & adequate Anesthetic Complications: no major complications apparent and Pt Satisfied with anesthetic care
[2020-05-09] MEDS ORDERED: OXYCODONE/ACETAMINOPHEN 5mg/325mg TAB PO PRN ×2 (12:52)
[2020-05-09] MEDS: LACTATED RINGER'S 1,000 ML IV SCH ×2 (12:56→21:53)
[2020-05-09] MEDS: MoRPHine SULFATE 2 MG/ML CARP IV PRN ×2 (14:08→22:51)
[2020-05-09] MEDS: DONEPEZIL HCL 10 MG TAB PO SCH (21:41)
[2020-05-09] MEDS: AMIODARONE 200 MG TAB PO SCH (21:42)
[2020-05-09] MEDS: TRAZODONE HCL 50 MG TAB PO SCH (21:42)
[2020-05-09] MEDS: clonazePAM 0.5 MG TAB PO SCH (21:47)
--- NOTE | 2020-05-09 22:42 | Hospitalist Progress Note ---
Date of Service May 09, 2020 Assessment & Plan (1) Cholangitis: s/p ERCP today by Dr Morgan, [facility]. Purulence seen in CBD. Stone seen and extracted. CBD stent placed. Cont IV zosyn. S/P lap tim Labs am. Appreciate [facility] assistance. (2) Choledocholithiasis: as seen on ERCP today s/p extraction and stent placement see above (3) Acute cholecystitis: as seen on imaging at admission. cont zosyn. cont IV fluids. cont pain meds. resumed diet S/P lap tim holding xarelto appreciate gen surg consultation and GI consultation. S/P lap tim today (4) T11 vertebral fracture: subacute. callus formation already seen on imaging. no pain - found incidentally. spoke with spine surgery - nothing to do at this time. conservative management. defer on MRI imaging unless she has symptoms/signs of neuro compromise. check 25-OH vit D level am (5) Dementia: noted cont aricept cont namenda due to Parkinson's? (6) Hypertension: BPs low-normal cont to hold PO lasix (7) Hyperlipidemia: not on meds for such (8) Parkinsons: cont sinemet (9) Atrial fibrillation: Paroxysmak Atrial fibrillation examines normal sinus rhythm again today HOLD XARELTO cont amiodarone (10) Chronic kidney disease, stage 3a: Cr stable BMP in am (11) DVT prophylaxis: holding xarelto for upcoming lap tim SCDs in meantime cont IV fluids updated daughter by phone 05/07 left message for daughter 05/08 Admission and Anticipated Discharge Date Admission Date: May 06, 2020 Subjective Patient remains confused. She has no new complaints. Review of Systems Review of Systems: Unobtainable due to cognitive status Physical Exam Physical Exam: Constitutional: + altered mental status; no acute distress Eyes: + anicteric sclerae ENMT: external ear and nose normal, oropharynx normal Respiratory: normal respiratory effort, lungs clear to auscultation Cardiovascular: Rate/Rhythm: regular rate and regular rhythm Heart Sounds: normal S1 and normal S2; no murmur Vessels: posterior tibial pulses present and dorsalis pedis pulses present; no JVD Extremities: no edema Gastrointestinal (Abdomen): Inspection/Auscultation: + abdomen distended (No change from yesterday's exam) and normal bowel sounds Percussion/Palpation: + abdomen tender (Epigastric region ); no guarding and no hepatosplenomegaly Psychiatric: Orientation: alert, oriented to person and oriented to place; + not oriented to time Results & Data Results & Data ([facility]) Vital Signs (Past 12 Hours) Vital Signs Temp Pulse Pulse Resp BP Pulse Ox 05/09/20 19:45 93/54 L 05/09/20 19:05 37.0 C 61 19 88/52 L 97 05/09/20 16:19 36.3 C L 55 L 16 153/77 H 97 05/09/20 14:32 51 L 16 97/60 L 95 05/09/20 13:30 54 L 16 113/65 100 05/09/20 13:00 16 126/68 100 05/09/20 12:30 36.4 C L 58 L 18 126/69 100 05/09/20 12:20 61 19 134/61 99 05/09/20 12:10 36.4 C L 63 23 133/76 98 05/09/20 12:00 65 18 151/70 H 97 05/09/20 11:50 35.6 C L 66 19 146/59 H 97 05/09/20 11:40 70 20 154/64 H 100 05/09/20 11:30 72 18 168/82 H 100 05/09/20 11:20 36.0 C L 78 23 171/92 H 100 PG Care Time/CCT Total # of Minutes Spent Total Time Spent with Patient: Total time spent is greater than 50% in coordination of care (as documented) at patient's floor/unit and/or counseling patient: Coding Level of Care Code 43009 Subseq Hosp Care Lvl 2 Diagnoses Cholangitis K83.09 Choledocholithiasis K80.50 Acute cholecystitis K81.0 T11 vertebral fracture S22.089A Encounter type: initial encounter Fracture morphology: unspecified fracture morphology Fracture type: closed Dementia G20; F02.80 Dementia behavioral disturbance: without behavioral disturbance Dementia type: Parkinson's disease Hypertension I10 Hyperlipidemia E78.5 Parkinsons G20 Atrial fibrillation I48.0 Atrial fibrillation type: paroxysmal Chronic kidney disease, stage 3a N18.3 DVT prophylaxis Z29.9 Time Spent (min) 25 (1) Atrial fibrillation Atrial fibrillation type: paroxysmal Qualified Code(s): I48.0 - Paroxysmal atrial fibrillation (2) Dementia Dementia behavioral disturbance: without behavioral disturbance Dementia type: Parkinson's disease Qualified Code(s): G20 - Parkinson's disease; F02.80 - Dementia in other diseases classified elsewhere without behavioral disturbance (3) T11 vertebral fracture Encounter type: initial encounter Fracture morphology: unspecified fracture morphology Fracture type: closed Qualified Code(s): S22.089A - Unspecified fracture of T11-T12 vertebra, initial encounter for closed fracture
[2020-05-10] MEDS: CARBIDOPA/LEVODOPA 50/200MG EXT REL TAB PO SCH ×2 (05:37→18:32)
[2020-05-10] MEDS: PIPERACILLIN/TAZOBACTAM 3.375 GM in DEXTROSE 5% 100 ML IV SCH ×3 (05:40→22:07)
[2020-05-10 06:58] LABS: Eosinophils # (auto) 0.01 K/uL (0-0.5); Eosinophils % (auto) 0.1 %; Hematocrit (blood only) 27.8 % (37-47); Hemoglobin 8.8 g/dL (12.0-16.0); Immature Granulocytes # (auto) 0.05 K/uL (0.00-0.02); Immature Granulocytes % (auto) 0.5 %; Lymphocytes # (auto) 0.37 K/uL (1.2-3.4); Lymphocytes % (auto) 3.6 %; Mean Corpuscular Hemoglobin 30.1 pg (25-34); Mean Corpuscular Hgb Conc 31.7 g/dL (32-36); Mean Corpuscular Volume 95.2 fL (80-100); Mean Platelet Volume 10.8 fL (7.4-10.4); Monocytes % (auto) 5.9 %; Neutrophils # (auto) 9.14 K/uL (1.4-6.5); Neutrophils % (auto) 89.9 %; Platelet Count 228 K/uL (130-400); RDW Coefficient of Variation 14.9 % (11.5-14.5); RDW Standard Deviation 52.2 fL (36.4-46.3); Red Blood Count 2.92 M/uL (4.2-5.4); White Blood Count 10.17 K/uL (4.8-10.8)
[2020-05-10 07:27] LABS: Albumin Level 2.3 gm/dl (3.4-5.0); BUN Creatinine Ratio 15.8 (10-20); Bilirubin Direct 0.2 mg/dl (0-0.2); Creatinine Clr Calc Pharmacy 32.6 ml/min; Est GFR (African American) 41.6; Est GFR (Non-African American) 35.9; Potassium 3.5 mmol/L (3.5-5.1)
[2020-05-10 07:30] LABS: Bilirubin,Total 0.9 mg/dl (0.2-1); Total Protein 5.7 gm/dl (6.4-8.2)
--- NOTE | 2020-05-10 08:38 | Anesthesiology Progress Note ---
Date of Service May 10, 2020 Anesthesia Post Procedure Vital Signs Vital Signs: Temp Pulse Pulse Pulse Resp BP Pulse Ox 05/10/20 07:16 36.5 C 78 18 114/72 91 05/10/20 04:18 36.6 C 53 L 16 137/81 99 05/09/20 23:40 36.7 C 54 L 18 111/58 L 97 05/09/20 19:45 93/54 L 05/09/20 19:05 37.0 C 61 19 88/52 L 97 05/09/20 16:19 36.3 C L 55 L 16 153/77 H 97 05/09/20 14:32 51 L 16 97/60 L 95 05/09/20 13:30 54 L 16 113/65 100 05/09/20 13:00 16 126/68 100 05/09/20 12:30 36.4 C L 58 L 18 126/69 100 05/09/20 12:20 61 19 134/61 99 05/09/20 12:10 36.4 C L 63 23 133/76 98 05/09/20 12:00 65 18 151/70 H 97 05/09/20 11:50 35.6 C L 66 19 146/59 H 97 05/09/20 11:40 70 20 154/64 H 100 05/09/20 11:30 72 18 168/82 H 100 05/09/20 11:20 36.0 C L 78 23 171/92 H 100 05/09/20 08:47 36.4 C L 71 20 128/58 L 96 Pain Intensity Right Upper Abdomen: Pain Intensity: 3 Abdomen: Pain Intensity: 2 Notes Mental Status: alert / awake / arousable Patient Amnestic to Procedure: Yes Nausea / Vomiting: adequately controlled Pain: adequately controlled Airway Patency, RR, SpO2: stable & adequate BP & HR: stable & adequate Hydration State: stable & adequate Anesthetic Complications: no major complications apparent and Pt Satisfied with anesthetic care
[2020-05-10] MEDS: ESCITALOPRAM OXALATE 10 MG TAB PO SCH (08:47)
[2020-05-10] MEDS: MEMANTINE HCL 10 MG TAB PO SCH ×2 (08:49→22:01)
[2020-05-10] MEDS: CARBIDOPA/LEVODOPA 25/100MG TAB PO SCH ×4 (08:49→22:00)
[2020-05-10] MEDS: LACTATED RINGER'S 1,000 ML IV SCH (12:08)
--- NOTE | 2020-05-10 13:35 | Surgery Progress Note ---
Date of Service May 10, 2020 Assessment & Plan (1) Acute cholecystitis: POD 1 lap tim advance diet as carin decrease IVF monitor H&H Supervising Physician Co-Signing Physician Notes Patient seen and examined, labs reviewed, agree with above. POD 1 laparoscopic cholecystectomy for acute cholecystitis with recent ERCP for cholangitis. Doing well, tolerating liquid diet. Some pain on the right side, but otherwise well controlled. Afebrile with stable vitals. Epigastric incision with some ecchymosis, otherwise incisions healing well. Appropriately tender to palpation. MELISSA with some clotted blood, nonbilious. Hematocrit 27 down from 34. Advance diet as tolerated, repeat hematocrit tomorrow. Hold Xarelto. Subjective tolerating liquids, no c/o Physical Exam Gastrointestinal (Abdomen): Inspection/Auscultation: abdomen not distended Percussion/Palpation: abdomen soft Results & Data Vital Signs (Past 12 Hours) Vital Signs Temp Pulse Resp BP Pulse Ox 05/10/20 07:16 36.5 C 78 18 114/72 91 05/10/20 04:18 36.6 C 53 L 16 137/81 99 PG Care Time/CCT Total # of Minutes Spent Total Time Spent with Patient: Total time spent is greater than 50% in coordination of care (as documented) at patient's floor/unit and/or counseling patient: Coding Level of Care Code None Diagnoses Acute cholecystitis K81.0
--- NOTE | 2020-05-10 21:22 | Hospitalist Progress Note ---
Date of Service May 10, 2020 Assessment & Plan (1) Cholangitis: POD #2 s/[facility] Purulence seen in CBD. Stone seen and extracted. CBD stent placed. Cont IV zosyn. Will need 2 weeks of total abx. Appreciate [facility] GI assistance. (2) Choledocholithiasis: POD #2 - s/p ERCP with extraction and stent placement see above (3) Acute cholecystitis: POD #1 s/p lap tim. doing well from surgical standpoint. cont zosyn. cont IV fluids. cont pain meds. diet advancement per surgery. holding xarelto; resume when ok with surgery. appreciate gen surg consultation and GI consultation. (4) T11 vertebral fracture: subacute. callus formation already seen on imaging. no pain - found incidentally. spoke with spine surgery - nothing to do at this time. conservative management. defer on MRI imaging unless she has symptoms/signs of neuro compromise. checked vitamin D level - <20 needs replacement (5) Dementia: noted cont aricept cont namenda due to Parkinson's? (6) Hypertension: BPs low-normal cont to hold PO lasix (7) Hyperlipidemia: not on meds for such (8) Parkinsons: cont sinemet (9) Atrial fibrillation: examines normal sinus rhythm again today HOLD XARELTO cont amiodarone (10) Chronic kidney disease, stage 3a: Cr stable BMP in am (11) DVT prophylaxis: holding xarelto; resume when ok with gen surg SCDs in meantime updated daughter by phone 05/07 left message for daughter 05/08 spoke with daughter today Admission and Anticipated Discharge Date Admission Date: May 06, 2020 Subjective patient doing remarkably well given the cholangitis and severity of cholecystitis oob to chair with 2 person assist +flatus no dyspnea feels weak tolerating full liquids minimal abd pain Review of Systems Constitutional: + fatigue; no fever and no chills Respiratory: no cough and no dyspnea Cardiovascular: no chest pain Gastrointestinal: no nausea and no vomiting Physical Exam Constitutional: + altered mental status (Mild ); no acute distress Eyes: + anicteric sclerae ENMT: external ear and nose normal, oropharynx normal Respiratory: normal respiratory effort, lungs clear to auscultation Cardiovascular: Rate/Rhythm: regular rate and regular rhythm Heart Sounds: normal S1 and normal S2; no murmur Vessels: posterior tibial pulses present and dorsalis pedis pulses present; no JVD Extremities: no edema Gastrointestinal (Abdomen): Inspection/Auscultation: normal bowel sounds; abdomen not distended Percussion/Palpation: abdomen soft; abdomen nontender, no guarding and no hepatosplenomegaly Skin: no jaundice; abdominal wall incisions clean Psychiatric: Orientation: alert, oriented to person and oriented to place; + not oriented to time Results & Data Results & Data ([facility]) Vital Signs (Past 12 Hours) Vital Signs Pulse Resp BP Pulse Ox 05/10/20 15:43 54 L 20 118/73 95 Laboratory Results Laboratory Results - last 24 hr 05/10/20 05/10/20 06:36 06:36 WBC 10.17 RBC 2.92 L Hgb 8.8 L Hct 27.8 L MCV 95.2 MCH 30.1 MCHC 31.7 L RDW Std Deviation 52.2 H RDW Coeff of Elizabeth 14.9 H Plt Count 228 MPV 10.8 H Immature Gran % (Auto) 0.5 Neut % (Auto) 89.9 Lymph % (Auto) 3.6 Hinds % (Auto) 5.9 Eos % (Auto) 0.1 Baso % (Auto) 0.0 Neut # (Auto) 9.14 H Lymph # (Auto) 0.37 L Hinds # (Auto) 0.60 H Eos # (Auto) 0.01 Baso # (Auto) 0.00 Immature Gran # (Auto) 0.05 H Sodium 142 Potassium 3.5 Chloride 111 H Carbon Dioxide 25 Anion Gap 6.0 BUN 22 H Creatinine 1.36 H Est Cr Clr Drug Dosing 32.6 Est GFR ( Amer) 41.6 Est GFR (Non-Af Amer) 35.9 BUN/Creatinine Ratio 15.8 Glucose 141 H Calcium 8.0 L Total Bilirubin 0.9 Direct Bilirubin 0.2 AST 32 ALT 8 L Alkaline Phosphatase 92 Total Protein 5.7 L Albumin 2.3 L PG Care Time/CCT Total # of Minutes Spent Total Time Spent with Patient: Total time spent is greater than 50% in coordination of care (as documented) at patient's floor/unit and/or counseling patient: Coding Level of Care Code 78736 Subseq Hosp Care Lvl 2 Diagnoses Cholangitis K83.09 Choledocholithiasis K80.50 Acute cholecystitis K81.0 T11 vertebral fracture S22.089A Encounter type: initial encounter Fracture morphology: unspecified fracture morphology Fracture type: closed Dementia G20; F02.80 Dementia behavioral disturbance: without behavioral disturbance Dementia type: Parkinson's disease Hypertension I10 Hyperlipidemia E78.5 Parkinsons G20 Atrial fibrillation I48.0 Atrial fibrillation type: paroxysmal Chronic kidney disease, stage 3a N18.3 DVT prophylaxis Z29.9 (1) Atrial fibrillation Atrial fibrillation type: paroxysmal Qualified Code(s): I48.0 - Paroxysmal atrial fibrillation (2) Dementia Dementia behavioral disturbance: without behavioral disturbance Dementia type: Parkinson's disease Qualified Code(s): G20 - Parkinson's disease; F02.80 - Dementia in other diseases classified elsewhere without behavioral disturbance (3) T11 vertebral fracture Encounter type: initial encounter Fracture morphology: unspecified fracture morphology Fracture type: closed Qualified Code(s): S22.089A - Unspecified fracture of T11-T12 vertebra, initial encounter for closed fracture
[2020-05-10] MEDS: clonazePAM 0.5 MG TAB PO SCH (21:58)
[2020-05-10] MEDS: TRAZODONE HCL 50 MG TAB PO SCH (21:58)
[2020-05-10] MEDS: DONEPEZIL HCL 10 MG TAB PO SCH (21:59)
[2020-05-10] MEDS: AMIODARONE 200 MG TAB PO SCH (22:00)
[2020-05-11] MEDS ORDERED: Nursing to Pharmacy Communication SCH (03:30)
[2020-05-11 05:22] LABS: Hematocrit (blood only) 27.6 % (37-47); Mean Corpuscular Hemoglobin 30.3 pg (25-34); Mean Corpuscular Hgb Conc 32.6 g/dL (32-36); Mean Corpuscular Volume 92.9 fL (80-100); Mean Platelet Volume 10.2 fL (7.4-10.4); Platelet Count 213 K/uL (130-400); RDW Coefficient of Variation 14.4 % (11.5-14.5); RDW Standard Deviation 49.4 fL (36.4-46.3); Red Blood Count 2.97 M/uL (4.2-5.4); White Blood Count 7.48 K/uL (4.8-10.8)
[2020-05-11] MEDS: CARBIDOPA/LEVODOPA 50/200MG EXT REL TAB PO SCH ×2 (05:45→18:09)
[2020-05-11] MEDS: PIPERACILLIN/TAZOBACTAM 3.375 GM in DEXTROSE 5% 100 ML IV SCH ×3 (05:49→21:39)
[2020-05-11 06:10] LABS: BUN Creatinine Ratio 13.9 (10-20); Calcium 8.3 mg/dl (8.5-10.1); Creatinine Clr Calc Pharmacy 38.5 ml/min
[2020-05-11] MEDS: ESCITALOPRAM OXALATE 10 MG TAB PO SCH (07:45)
[2020-05-11] MEDS: MEMANTINE HCL 10 MG TAB PO SCH ×2 (07:46→20:09)
[2020-05-11] MEDS: CARBIDOPA/LEVODOPA 25/100MG TAB PO SCH ×4 (07:47→20:10)
[2020-05-11] MEDS ORDERED: D5W AND 1/4NSS + 20MEQ KCL 20 MEQ/1,000 ML BAG IV SCH (09:15)
[2020-05-11] MEDS: POTASSIUM CHLORIDE 20 MEQ/15 ML UDC PO SCH ×2 (09:54→20:07)
[2020-05-11] MEDS ORDERED: ERGOCALCIFEROL 50,000 UNITS CAP PO ONE (10:44)
[2020-05-11] MEDS: LACTOBACILLUS ACIDOPHILUS (FLORANEX) TAB PO SCH ×3 (11:51→20:09)
--- NOTE | 2020-05-11 12:41 | Surgery Progress Note ---
Date of Service May 11, 2020 Assessment & Plan (1) Cholecystitis: POD#2 laparoscopic cholecystectomy WBC: 7.4, Hb MELISSA drain noted to have 80cc output, with some saturation to dressing. On exam tubing noted to have some clot, drain stripped and decision was made to remove MELISSA drain. Patient tolerated well Continue diet as tolerates Incisions c/d/i If Hbg stable tomorrow she can likely start her xarelto tomorrow If dispo over wknd will ask patient to follow up in clinic with Dr. Goddard within 1-2 weeks [facility] surgery covering over the weekend Supervising Physician Co-Signing Physician Notes Patient seen and examined, labs reviewed, agree with above. POD #2 lap cholecystectomy for acute cholecystitis and cholangitis. She seems slightly more confused this morning. She did have saturation of her dressing overnight. Tolerating her diet. Afebrile with stable vitals, abdomen soft, port site incisions healing well. Dressing saturated. Yesterday there was clot noted in the drain, and today the tubing appears clotted. MELISSA drain removed, diet as tolerated, may start Xarelto tomorrow if hematocrit remains stable. Dr. Morgan covering over the weekend Subjective Patient offers no complaints. Tolerating a diet. Some confusion, wondering "what her blood pressure is." RN noted that her MELISSA drain site was saturated overnight and today. Physical Exam Gastrointestinal (Abdomen): Inspection/Auscultation: + abdominal surgical incision (c/d/i with dermabond overtop) and + abdominal surgical drain present (MELISSA drain with serosang. output, some clot noted in tubing) Percussion/Palpation: abdomen soft; abdomen nontender Results & Data Vital Signs (Past 12 Hours) Vital Signs Temp Pulse Resp BP Pulse Ox 05/11/20 07:29 36.6 C 56 L 16 128/78 95 05/11/20 04:05 36.3 C L 57 L 16 133/71 97 PG Care Time/CCT Total # of Minutes Spent Total Time Spent with Patient: Total time spent is greater than 50% in coordination of care (as documented) at patient's floor/unit and/or counseling patient: Coding Level of Care Code None Diagnoses Cholecystitis K81.9
[2020-05-11] MEDS: TRAZODONE HCL 50 MG TAB PO SCH (20:08)
[2020-05-11] MEDS: AMIODARONE 200 MG TAB PO SCH (20:08)
[2020-05-11] MEDS: DONEPEZIL HCL 10 MG TAB PO SCH (20:09)
[2020-05-11] MEDS: clonazePAM 0.5 MG TAB PO SCH (20:15)
--- NOTE | 2020-05-11 21:40 | Hospitalist Progress Note ---
Date of Service May 11, 2020 Assessment & Plan (1) Cholangitis: POD #3 [facility] Purulence seen in CBD. Stone seen and extracted. CBD stent placed. Cont IV zosyn. Will need 2 weeks of total abx. Can likely transition to PO abx soon. [email or web address] (2) Choledocholithiasis: POD #3 - s/p ERCP with extraction and stent placement see above (3) Acute cholecystitis: POD #2 s/p lap tim. doing well from surgical standpoint. MELISSA drain removed today. cont zosyn. over to PO abx soon. cont IV fluids. cont pain meds. diet advancement per surgery. holding xarelto; resume tomorrow if H/H stable. appreciate gen surg consultation and GI consultation. (4) T11 vertebral fracture: subacute. callus formation already seen on imaging. no pain - found incidentally. spoke with spine surgery - nothing to do at this time. conservative management. defer on MRI imaging unless she has symptoms/signs of neuro compromise. neuro exam wnl checked vitamin D level - <20 needs replacement (5) Dementia: cont aricept cont namenda likely due to Parkinson's (6) Hypertension: BPs low-normal cont to hold PO lasix (7) Hyperlipidemia: not on meds for such (8) Parkinsons: cont sinemet (9) Atrial fibrillation: examines normal sinus rhythm again today RESUME XARELTO tomorrow cont amiodarone (10) Chronic kidney disease, stage 3a: Cr stable BMP in am (11) Hypokalemia: replace IV/PO bmp am (12) Hypernatremia: hypotonic fluids x 1 liter recheck bmp am stop fluids after the 1 liter (13) Vitamin D deficiency: ergocalciferol 50,000 units weekly x 8 weeks (14) DVT prophylaxis: holding xarelto; resume tomorrow SCDs in meantime updated daughter by phone 05/07 and 05/10 needs rehab cont PT, OT Admission and Anticipated Discharge Date Admission Date: May 06, 2020 Subjective patient was trying to take off her gown when I entered the room. I asked what she was trying to do and she said "I'm getting ready to go home." she was able to be redirected -- interestingly she knew she was in the hospital but didn't remember her surgery. denied any dyspnea. denied any abdominal pain. denied chest pain. couldn't tell me if she had passed flatus. Review of Systems Constitutional: no fever Cardiovascular: no chest pain and no orthopnea Gastrointestinal: no nausea and no vomiting Physical Exam Constitutional: + altered mental status; no acute distress Eyes: + anicteric sclerae ENMT: external ear and nose normal, oropharynx normal Respiratory: no respiratory distress Auscultation: + crackles (mild, bases) Cardiovascular: Rate/Rhythm: regular rate and regular rhythm Heart Sounds: normal S1 and normal S2; no murmur Vessels: posterior tibial pulses present and dorsalis pedis pulses present; no JVD Extremities: no edema Gastrointestinal (Abdomen): Inspection/Auscultation: normal bowel sounds; abdomen not distended Percussion/Palpation: abdomen soft; abdomen nontender, no guarding and no hepatosplenomegaly Skin: abdominal wall incisions clean Neurologic: moves all extremities (strength 5/5 legs, arms) Psychiatric: Orientation: alert, oriented to person and oriented to place; + not oriented to time Results & Data Results & Data ([facility]) Vital Signs (Past 12 Hours) Vital Signs Temp Pulse Resp BP Pulse Ox 05/11/20 14:59 36.8 C 67 17 134/87 98 Laboratory Results Laboratory Results - last 24 hr 05/11/20 05/11/20 05:11 05:11 WBC 7.48 RBC 2.97 L Hgb 9.0 L Hct 27.6 L MCV 92.9 MCH 30.3 MCHC 32.6 RDW Std Deviation 49.4 H RDW Coeff of Elizabeth 14.4 Plt Count 213 MPV 10.2 Sodium 146 H Potassium 3.0 L Chloride 114 H Carbon Dioxide 26 Anion Gap 6.0 BUN 16 Creatinine 1.15 Est Cr Clr Drug Dosing 38.5 Est GFR ( Amer) 51.0 Est GFR (Non-Af Amer) 44.0 BUN/Creatinine Ratio 13.9 Glucose 86 Calcium 8.3 L PG Care Time/CCT Total # of Minutes Spent Total Time Spent with Patient: Total time spent is greater than 50% in coordination of care (as documented) at patient's floor/unit and/or counseling patient: Coding Level of Care Code 22326 Subseq Hosp Care Lvl 3 Diagnoses Cholangitis K83.09 Choledocholithiasis K80.50 Acute cholecystitis K81.0 T11 vertebral fracture S22.089A Encounter type: initial encounter Fracture morphology: unspecified fracture morphology Fracture type: closed Dementia G20; F02.80 Dementia behavioral disturbance: without behavioral disturbance Dementia type: Parkinson's disease Hypertension I10 Hyperlipidemia E78.5 Parkinsons G20 Atrial fibrillation I48.0 Atrial fibrillation type: paroxysmal Chronic kidney disease, stage 3a N18.3 Hypokalemia E87.6 Hypernatremia E87.0 Vitamin D deficiency E55.9 DVT prophylaxis Z29.9 (1) Atrial fibrillation Atrial fibrillation type: paroxysmal Qualified Code(s): I48.0 - Paroxysmal atrial fibrillation (2) Dementia Dementia behavioral disturbance: without behavioral disturbance Dementia type: Parkinson's disease Qualified Code(s): G20 - Parkinson's disease; F02.80 - Dementia in other diseases classified elsewhere without behavioral disturbance (3) T11 vertebral fracture Encounter type: initial encounter Fracture morphology: unspecified fracture morphology Fracture type: closed Qualified Code(s): S22.089A - Unspecified fracture of T11-T12 vertebra, initial encounter for closed fracture
[2020-05-12] MEDS: PIPERACILLIN/TAZOBACTAM 3.375 GM in DEXTROSE 5% 100 ML IV SCH ×3 (05:50→13:52)
[2020-05-12] MEDS: ALENDRONATE SODIUM 70 MG TAB PO SCH (05:51)
[2020-05-12] MEDS: CARBIDOPA/LEVODOPA 50/200MG EXT REL TAB PO SCH ×2 (05:51→18:03)
[2020-05-12] MEDS: LACTOBACILLUS ACIDOPHILUS (FLORANEX) TAB PO SCH ×4 (07:46→20:06)
[2020-05-12] MEDS: ESCITALOPRAM OXALATE 10 MG TAB PO SCH (07:47)
[2020-05-12] MEDS: MEMANTINE HCL 10 MG TAB PO SCH ×2 (07:48→20:06)
[2020-05-12] MEDS: CARBIDOPA/LEVODOPA 25/100MG TAB PO SCH ×4 (07:49→20:07)
[2020-05-12] MEDS: POTASSIUM CHLORIDE 20 MEQ/15 ML UDC PO SCH ×2 (07:50→20:15)
[2020-05-12 08:52] LABS: BUN Creatinine Ratio 10.8 (10-20); Calcium 8.8 mg/dl (8.5-10.1); Creatinine Clr Calc Pharmacy 39.9 ml/min; Est GFR (African American) 53.2; Est GFR (Non-African American) 45.9; Potassium 3.8 mmol/L (3.5-5.1)
--- NOTE | 2020-05-12 09:33 | Surgery Progress Note ---
Date of Service May 12, 2020 Assessment & Plan (1) Cholecystitis: POD#3 lap tim. Drain removed yesterday. On regular diet. H/H not checked today. Given presence of hematoma right flank, would check H/H and make sure it is stable prior to starting xarelto. No new recommendations. Subjective Eating breakfast (toast/ eggs). No abdominal pain that she reports. Review of Systems Review of Systems: Unobtainable due to cognitive status Physical Exam Constitutional: no acute distress Respiratory: normal respiratory effort Auscultation: lungs clear to auscultation bilaterally Gastrointestinal (Abdomen): Inspection/Auscultation: normal bowel sounds Percussion/Palpation: abdomen soft; no guarding hematoma right flank, dressings dry Neurologic: moves all extremities appears confused at times but redirects easily Results & Data Vital Signs (Past 12 Hours) Vital Signs Temp Pulse Resp BP BP Pulse Ox 05/12/20 07:15 36.6 C 61 16 154/79 H 97 05/12/20 00:16 36.5 C 80 18 145/76 H 94
[2020-05-12 10:26] LABS: Eosinophils # (auto) 0.09 K/uL (0-0.5); Eosinophils % (auto) 1.6 %; Hemoglobin 8.6 g/dL (12.0-16.0); Immature Granulocytes # (auto) 0.04 K/uL (0.00-0.02); Immature Granulocytes % (auto) 0.7 %; Lymphocytes # (auto) 0.45 K/uL (1.2-3.4); Lymphocytes % (auto) 7.8 %; Mean Corpuscular Hemoglobin 30.1 pg (25-34); Mean Corpuscular Hgb Conc 31.9 g/dL (32-36); Mean Corpuscular Volume 94.4 fL (80-100); Mean Platelet Volume 10.6 fL (7.4-10.4); Monocytes # (auto) 0.62 K/uL (0.11-0.59); Monocytes % (auto) 10.8 %; Neutrophils # (auto) 4.56 K/uL (1.4-6.5); Neutrophils % (auto) 79.1 %; Platelet Count 262 K/uL (130-400); RDW Coefficient of Variation 14.5 % (11.5-14.5); RDW Standard Deviation 50.2 fL (36.4-46.3); Red Blood Count 2.86 M/uL (4.2-5.4); White Blood Count 5.76 K/uL (4.8-10.8)
[2020-05-12 16:41] LABS: Hematocrit (blood only) 27.3 % (37-47); Hemoglobin 8.8 g/dL (12.0-16.0)
[2020-05-12] MEDS: AMOXICILLIN/CLAVULANATE 875 MG TAB PO SCH (20:05)
[2020-05-12] MEDS: TRAZODONE HCL 50 MG TAB PO SCH (20:06)
[2020-05-12] MEDS: DONEPEZIL HCL 10 MG TAB PO SCH (20:06)
[2020-05-12] MEDS: AMIODARONE 200 MG TAB PO SCH (20:09)
[2020-05-12] MEDS: clonazePAM 0.5 MG TAB PO SCH (20:21)
--- NOTE | 2020-05-12 20:50 | Hospitalist Progress Note ---
Date of Service May 12, 2020 Assessment & Plan (1) Metabolic encephalopathy: severe. in setting of known Parkinson's disease, dementia, prolonged hospitalization, and cholangitis/cholecystitis. had discussion with patient's daughter by phone today regarding the confusion/delirium. discussed pathophysiology, why she is having it, etc. not a great candidate for antipsychotic due to potential for QTc prolongation with concomittant amiodarone. has been on chronic trazodone - will increase cautiously to 37.5mg at HS tonight. other option is slight increase in clonazepam. normally I would not recommend such but this med, too, is chronic for her. cont to reinforce day/wake cycle. stop all narcotics. she would benefit from getting out of room tomorrow, getting more sunlight tomorrow, etc. consider melatonin. (2) Acute blood loss anemia: about 4.5gm drop since admission. had bleeding into flank on right. suspect drop was from such. H/H now stable x 48 hours. recheck cbc tomorrow. will need Fe supplementation. (3) Cholangitis: POD #4 s/[facility]. Purulence seen in CBD. Stone seen and extracted. CBD stent placed. Stop IV zosyn tonight, then change to PO augmentin BID to complete total 2 weeks of IV/PO abx. Appreciate [facility] GI assistance. (4) Choledocholithiasis: POD #4 - s/p ERCP with extraction and stent placement see above (5) Acute cholecystitis: POD #3 s/p lap tim. doing well from surgical standpoint. MELISSA drain d/c on 17. tolerating regular diet. having bowel movements. pain controlled. change zosyn to PO augmentin - see above. holding xarelto; resume tomorrow if H/H stable in light of bleeding into right flank region. appreciate gen surg consultation and GI consultation. (6) T11 vertebral fracture: subacute. callus formation seen on imaging. no pain - found incidentally. spoke with spine surgery - nothing to do at this time. conservative management. defer on MRI imaging unless she has symptoms/signs of neuro compromise. neuro exam of legs continues to be normal. vit D def - replace w/ ergocalciferol x 8 weeks. (7) Dementia: cont aricept cont namenda likely due to Parkinson's with superimposed met encephalopathy (8) Hypertension: resume lasix in am if BMP is stable (9) Hyperlipidemia: not on meds for such (10) Parkinsons: cont sinemet severe deconditioning - cont PT/OT -- needs rehab (11) Atrial fibrillation: examines normal sinus rhythm again today RESUME XARELTO tomorrow if H/H stable and no signs of further bleeding (right flank) on exam cont amiodarone (12) Chronic kidney disease, stage 3a: Cr stable BMP in am (13) Hypokalemia: replaced and resolved (14) Hypernatremia: minimal - 146 recheck am hold lasix again (15) Vitamin D deficiency: ergocalciferol 50,000 units weekly x 8 weeks first dose 05/11/2020 (16) DVT prophylaxis: holding xarelto SCDs in meantime updated daughter by phone 05/07, 05/10, and 05/12 needs rehab cont PT, OT Admission and Anticipated Discharge Date Admission Date: May 06, 2020 Subjective patient VERY confused during the visit today. she had a stack of wash clothes that she was attempting to fold over and over. most of her speech was difficult to understand and what I could understand did not pertain to her hospital stay (talking about events outside the hospital, etc). at one point, however, she said "I had surgery for my gall bladder." apparently overnight she called her daughter at midnight in tears, was crying, etc. staff report confusion, weakness. unable to elicit meaningful history or ROS. tolerating diet per staff. 2 BMs yesterday. Review of Systems Review of Systems: Unobtainable due to cognitive status Physical Exam Constitutional: + altered mental status; no acute distress ENMT: external ear and nose normal, oropharynx normal Respiratory: normal respiratory effort, lungs clear to auscultation no respiratory distress Cardiovascular: Rate/Rhythm: regular rate and regular rhythm Heart Sounds: normal S1 and normal S2; no murmur Vessels: posterior tibial pulses present and dorsalis pedis pulses present; no JVD Extremities: no edema Gastrointestinal (Abdomen): Inspection/Auscultation: normal bowel sounds; abdomen not distended Percussion/Palpation: abdomen soft; abdomen nontender, no guarding and no hepatosplenomegaly Skin: + ecchymosis (moderate/severe - right flank extending to the right back) incisions abd wall clean Neurologic: moves all extremities (strength 5/5 legs, arms) Psychiatric: Orientation: alert and oriented to person; + not oriented to place and + not oriented to time Results & Data Results & Data ([facility]) Vital Signs (Past 12 Hours) Vital Signs Temp Pulse Resp BP BP Pulse Ox 05/12/20 20:10 82 154/85 H 05/12/20 15:19 36.7 C 70 18 142/77 H 98 Laboratory Results Laboratory Results - last 24 hr 05/12/20 05/12/20 05/12/20 07:33 07:33 16:28 WBC 5.76 RBC 2.86 L Hgb 8.6 L 8.8 L Hct 27.0 L 27.3 L MCV 94.4 MCH 30.1 MCHC 31.9 L RDW Std Deviation 50.2 H RDW Coeff of Elizabeth 14.5 Plt Count 262 MPV 10.6 H Immature Gran % (Auto) 0.7 Neut % (Auto) 79.1 Lymph % (Auto) 7.8 Ashley % (Auto) 10.8 Eos % (Auto) 1.6 Baso % (Auto) 0.0 Neut # (Auto) 4.56 Lymph # (Auto) 0.45 L Ashley # (Auto) 0.62 H Eos # (Auto) 0.09 Baso # (Auto) 0.00 Immature Gran # (Auto) 0.04 H Sodium 146 H Potassium 3.8 D Chloride 114 H Carbon Dioxide 26 Anion Gap 6.0 BUN 12 Creatinine 1.11 Est Cr Clr Drug Dosing 39.9 Est GFR ( Amer) 53.2 Est GFR (Non-Af Amer) 45.9 BUN/Creatinine Ratio 10.8 Glucose 96 Calcium 8.8 PG Care Time/CCT Total # of Minutes Spent Total Time Spent with Patient: Total time spent is greater than 50% in coordination of care (as documented) at patient's floor/unit and/or counseling patient: Coding Level of Care Code 42472 Subseq Hosp Care Lvl 3 Diagnoses Metabolic encephalopathy G93.41 Acute blood loss anemia D62 Cholangitis K83.09 Choledocholithiasis K80.50 Acute cholecystitis K81.0 T11 vertebral fracture S22.089A Encounter type: initial encounter Fracture type: closed Fracture morphology: unspecified fracture morphology Dementia G20; F02.80 Dementia type: Parkinson's disease Dementia behavioral disturbance: without behavioral disturbance Hypertension I10 Hyperlipidemia E78.5 Parkinsons G20 Atrial fibrillation I48.0 Atrial fibrillation type: paroxysmal Chronic kidney disease, stage 3a N18.3 Hypokalemia E87.6 Hypernatremia E87.0 Vitamin D deficiency E55.9 DVT prophylaxis Z29.9 (1) T11 vertebral fracture Encounter type: initial encounter Fracture type: closed Fracture morphology: unspecified fracture morphology Qualified Code(s): S22.089A - Unspecified fracture of T11-T12 vertebra, initial encounter for closed fracture (2) Dementia Dementia type: Parkinson's disease Dementia behavioral disturbance: without behavioral disturbance Qualified Code(s): G20 - Parkinson's disease; F02.80 - Dementia in other diseases classified elsewhere without behavioral disturbance (3) Atrial fibrillation Atrial fibrillation type: paroxysmal Qualified Code(s): I48.0 - Paroxysmal atrial fibrillation
[2020-05-12] MEDS ORDERED: TRAZODONE HCL 50 MG TAB PO ONE (21:00)
[2020-05-13] MEDS: CARBIDOPA/LEVODOPA 50/200MG EXT REL TAB PO SCH ×2 (06:01→18:04)
[2020-05-13 06:02] LABS: Hematocrit (blood only) 25.5 % (37-47); Hemoglobin 7.9 g/dL (12.0-16.0); Mean Corpuscular Hemoglobin 29.6 pg (25-34); Mean Corpuscular Volume 95.5 fL (80-100); Mean Platelet Volume 10.3 fL (7.4-10.4); Platelet Count 231 K/uL (130-400); RDW Coefficient of Variation 14.9 % (11.5-14.5); RDW Standard Deviation 51.7 fL (36.4-46.3); Red Blood Count 2.67 M/uL (4.2-5.4); White Blood Count 5.93 K/uL (4.8-10.8)
[2020-05-13 06:40] LABS: BUN Creatinine Ratio 11.8 (10-20); Calcium 8.6 mg/dl (8.5-10.1); Creatinine Clr Calc Pharmacy 44.7 ml/min; Est GFR (African American) 61.1; Est GFR (Non-African American) 52.7; Potassium 4.2 mmol/L (3.5-5.1)
[2020-05-13] MEDS ORDERED: DEXTROSE 5% 1,000 ML IV SCH (08:30)
[2020-05-13] MEDS: ESCITALOPRAM OXALATE 10 MG TAB PO SCH (09:18)
[2020-05-13] MEDS: LACTOBACILLUS ACIDOPHILUS (FLORANEX) TAB PO SCH ×4 (09:18→21:04)
[2020-05-13] MEDS: AMOXICILLIN/CLAVULANATE 875 MG TAB PO SCH ×2 (09:18→16:26)
[2020-05-13] MEDS: MEMANTINE HCL 10 MG TAB PO SCH ×2 (09:19→21:04)
[2020-05-13] MEDS: CARBIDOPA/LEVODOPA 25/100MG TAB PO SCH ×4 (09:20→21:04)
[2020-05-13] MEDS: POTASSIUM CHLORIDE 20 MEQ/15 ML UDC PO SCH (09:21)
--- NOTE | 2020-05-13 11:49 | CT Scan Report ---
ABDOMEN AND PELVIS CT WITHOUT CONTRAST CT DOSE: 1362.33 mGy.cm HISTORY: recent lap tim; retroperitoneal bleed? other? TECHNIQUE: Multiaxial CT images of the abdomen and pelvis were performed without contrast. A dose lo wering technique was utilized adhering to the principles of ALARA. COMPARISON STUDY: Abdomen and pelvis CT 05/06/2020. FINDINGS: Small bilateral pleural effusions have progressed. Consolidation within the bilateral lower lobes posteriorly. This favors atelectasis. A pneumonia could also have a similar appearance. No pne umoperitoneum. No pneumatosis. Posterior fusion hardware from L3 through S1. Healing endplate fractur es at T11-T12. This remains unchanged. Interval cholecystectomy. Small amount of gas and fluid at the resection site. This favors expected postoperative change. There are also a few focal lobular hyperd ense foci within the resection bed, midline deep to the abdominal wall, and right subhepatic space. T here is also small hyperdense fluid within the pelvic cul-de-sac. The largest hyperdense foci within the right subhepatic space is best seen on image 190 and measures 4.6 cm. These favor small areas of hemorrhage. Diffuse body wall edema. There is also subcutaneous edema within the anterior midline and right abdominal wall which favors postoperative change. There is pneumobilia. A common bile duct rubens nt appears in good position. Normal edema/inflammatory change surrounding the second portion of duode num and pancreatic head. The pancreatic tail is within normal limits. The spleen and right adrenal gl and unremarkable. Stable 2 cm left adrenal gland nodule consistent with a benign adenoma. No hydronep hrosis. Subcentimeter hyperdense exophytic lesion within the right kidney measures 6 mm. This is tech nically too small to characterize but does not appear to enhance compared to the prior study and ther efore favors a hyperdense cyst. The bladder is distended. The uterus is unremarkable. Colonic diverti culosis. No evidence for diverticulitis. Fluid-filled colon. Suboptimal evaluation for bowel patholog y due to the lack of intravenous and oral contrast. However, there is no definite bowel wall thickeni ng or obstruction. IMPRESSION: 1. Interval cholecystectomy. Small amount of fluid and gas at the resection bed which favors recent p ostoperative change. 2. Scattered small lobular hyperdense foci seen within the right upper quadrant both within and adjac ent to the resection bed as described above. There is also small amount of hyperdense fluid within th e pelvic cul-de-sac. This favors scattered areas of hemorrhage. 3. Mild inflammatory change surrounding the second portion of duodenum and pancreas. This could be du e to the recent postoperative change or a developing acute pancreatitis. Recommend correlation with p ancreatic enzymes. 4. The common bile duct stent appears in good position. There is associated pneumobilia. 5. Small bilateral pleural effusions have progressed. 6. Consolidation within the bilateral lower lobes posteriorly. This favors compressive atelectasis fr om the pleural effusions. A pneumonia could also have a similar appearance. 7. Distended bladder. 8. Colonic diverticulosis. 9. Healing T11-T12 endplate fractures are again noted. 10. Additional findings as described above. ACT 112: Negative or not required by law. Electronically signed by: Mat Hall M.D. 05/13/2020 11:48 AM
[2020-05-13] MEDS: PANTOprazole 40 MG TAB PO SCH (13:32)
--- NOTE | 2020-05-13 14:51 | Surgery Progress Note ---
Date of Service May 13, 2020 Assessment & Plan (1) Cholecystitis: POD#4 lap tim. Drain removed. On regular diet. H/H showed significant drop c/w bleed (likely into right flank). CT scan done and shows small areas of hemorrhage intra-abdominal. Does not appear to still be bleeding. Agree with holding of xarelto. May need transfusion if numbers continue to drift. Warm compresses to right flank should help hematoma resolve. No new recommendations. (2) Acute blood loss anemia: due to postop bleed into right flank. continue to monitor. hold xarelto. Subjective Difficult to understand at times. Does not complain of pain. Review of Systems Review of Systems: Unobtainable due to cognitive status Physical Exam Constitutional: no acute distress Respiratory: normal respiratory effort Auscultation: lungs clear to auscultation bilaterally Gastrointestinal (Abdomen): Inspection/Auscultation: normal bowel sounds; abdomen not distended Percussion/Palpation: abdomen soft; no guarding large bruising over right flank c/w hematoma. Smaller amount of bruising mid ep igastrium. No apparent tenderness. Neurologic: moves all extremities Results & Data Vital Signs (Past 12 Hours) Vital Signs Temp Pulse Resp BP 05/13/20 07:38 36.6 C 56 L 16 139/57 L Laboratory Results Abnormal lab results 05/12/20 05/13/20 05/13/20 Range/Units 16:28 05:02 05:02 RBC 2.67 L (4.2-5.4) M/uL Hgb 8.8 L 7.9 L (12.0-16.0) g/dL Hct 27.3 L 25.5 L (37-47) % MCHC 31.0 L (32-36) g/dL RDW Std Deviation 51.7 H (36.4-46.3) fL RDW Coeff of Elizabeth 14.9 H (11.5-14.5) % Sodium 147 H (136-145) mmol/L Chloride 115 H (98-107) mmol/L Lipase (73-393) U/L 05/13/20 Range/Units 05:02 RBC (4.2-5.4) M/uL Hgb (12.0-16.0) g/dL Hct (37-47) % MCHC (32-36) g/dL RDW Std Deviation (36.4-46.3) fL RDW Coeff of Elizabeth (11.5-14.5) % Sodium (136-145) mmol/L Chloride (98-107) mmol/L Lipase 71 L (73-393) U/L Diagnostic Findings ABDOMEN AND PELVIS CT WITHOUT CONTRAST CT DOSE: 1362.33 mGy.cm HISTORY: recent lap tim; retroperitoneal bleed? other? TECHNIQUE: Multiaxial CT images of the abdomen and pelvis were performed without contrast. A dose lowering technique was utilized adhering to the principles of ALARA. COMPARISON STUDY: Abdomen and pelvis CT 05/06/2020. FINDINGS: Small bilateral pleural effusions have progressed. Consolidation within the bilateral lower lobes posteriorly. This favors atelectasis. A pneumonia could also have a similar appearance. No pneumoperitoneum. No pneumatosis. Posterior fusion hardware from L3 through S1. Healing endplate fractures at T11-T12. This remains unchanged. Interval cholecystectomy. Small amount of gas and fluid at the resection site. This favors expected postoperative change. There are also a few focal lobular hyperdense foci within the resection bed, midline deep to the abdominal wall, and right subhepatic space. There is also small hyperdense fluid within the pelvic cul-de-sac. The largest hyperdense foci within the right subhepatic space is best seen on image 190 and measures 4.6 cm. These favor small areas of hemorrhage. Diffuse body wall edema. There is also subcutaneous edema within the anterior midline and right abdominal wall which favors postoperative change. There is pneumobilia. A common bile duct stent appears in good position. Normal edema/inflammatory change surrounding the second portion of duodenum and pancreatic head. The pancreatic tail is within normal limits. The spleen and right adrenal gland unremarkable. Stable 2 cm left adrenal gland nodule consistent with a benign adenoma. No hydronephrosis. Subcentimeter hyperdense exophytic lesion within the right kidney measures 6 mm. This is technically too small to characterize but does not appear to enhance compared to the prior study and therefore favors a hyperdense cyst. The bladder is distended. The uterus is unremarkable. Colonic diverticulosis. No evidence for diverticulitis. Fluid-filled colon. Suboptimal evaluation for bowel pathology due to the lack of intravenous and oral contrast. However, there is no definite bowel wall thickening or obstruction. IMPRESSION: 1. Interval cholecystectomy. Small amount of fluid and gas at the resection bed which favors recent postoperative change. 2. Scattered small lobular hyperdense foci seen within the right upper quadrant both within and adjacent to the resection bed as described above. There is also small amount of hyperdense fluid within the pelvic cul-de-sac. This favors scattered areas of hemorrhage. 3. Mild inflammatory change surrounding the second portion of duodenum and pancreas. This could be due to the recent postoperative change or a developing acute pancreatitis. Recommend correlation with pancreatic enzymes. 4. The common bile duct stent appears in good position. There is associated pneumobilia. 5. Small bilateral pleural effusions have progressed. 6. Consolidation within the bilateral lower lobes posteriorly. This favors compressive atelectasis from the pleural effusions. A pneumonia could also have a similar appearance. 7. Distended bladder. 8. Colonic diverticulosis. 9. Healing T11-T12 endplate fractures are again noted. 10. Additional findings as described above.
[2020-05-13] MEDS ORDERED: TRAZODONE HCL 50 MG TAB PO SCH (21:00)
[2020-05-13] MEDS: AMIODARONE 200 MG TAB PO SCH (21:04)
[2020-05-13] MEDS: clonazePAM 0.5 MG TAB PO SCH (21:04)
[2020-05-13] MEDS: DONEPEZIL HCL 10 MG TAB PO SCH (21:04)
[2020-05-13] MEDS: TRAZODONE HCL 50 MG TAB PO SCH (21:05)
--- NOTE | 2020-05-13 21:45 | Hospitalist Progress Note ---
Date of Service May 13, 2020 Assessment & Plan (1) Metabolic encephalopathy: severe. in setting of known Parkinson's disease, dementia, prolonged hospitalization, and cholangitis/cholecystitis. hypernatremia could be contributing to this as well. cont to reinforce day/wake cycle. stopped all narcotics. fix high Na. consider melatonin at HS - limited studies have shown modest efficacy with geriatric met encephalopathy. if this issue worsens obtain MRI brain to r/o subacute stroke since she has been off her anticoagulation for a.fib (2) Hypernatremia: slightly worse at 147 today D5W x 1 liter today repeat BMP am encourage H20 consumption continue to hold lasix (3) Acute blood loss anemia: worse today. about 5.5gm drop since admission. had bleeding into flank on right. obtained noncontrast CT abd/pelvis - extensive bleeding right flank and in RUQ on that scan. general surgery saw her today - nothing to do at this time. repeat CBC am. ferrous sulfate 325mg BID. in light of advanced age and extent of drop (5+ grams since admission) low threshold to transfuse her tomorrow. (4) Cholangitis: POD #5 s/p ERCP by Dr Morgan, [facility]. Purulence seen in CBD. Stone seen and extracted. CBD stent placed. Received IV zosyn since admission - stopped last evening. Now on PO augmentin BID to complete total 2 weeks of IV/PO abx. Recent abnormal LFTs had resolved. HOWEVER, in light of encephalopathy, repeat LFTs in am to ensure they are still normal and not uptrending. Lipase today wnl. Appreciate [employer] [facility] assistance. (5) Choledocholithiasis: POD #5 - s/p ERCP with extraction and stent placement see above (6) Acute cholecystitis: POD #4 s/p lap tim. doing well from surgical standpoint. MELISSA drain d/c on 05/11. tolerating regular diet. having bowel movements. pain controlled. changed zosyn to PO augmentin - see above. holding xarelto due to acute blood loss anemia. appreciate gen surg consultation and GI consultation. see discussion above re: abd/pelvic CT obtained today. (7) T11 vertebral fracture: subacute. callus formation seen on imaging. no pain - found incidentally. spoke with spine surgery - nothing to do at this time. conservative management. defer on MRI imaging unless she has symptoms/signs of neuro compromise. neuro exam of legs continues to be normal. vit D def - replace w/ ergocalciferol x [address] abd/pelvis today saw the fracture again and it was stable. (8) Dementia: cont aricept cont namenda likely due to Parkinson's with superimposed met encephalopathy as above (9) Hypertension: hold lasix (10) Hyperlipidemia: not on meds for such (11) Parkinsons: cont sinemet severe deconditioning - cont PT/OT -- needs rehab (12) Atrial fibrillation: examines normal sinus rhythm again today hold xarelto due to acute blood loss anemia and bleeding in right flank cont amiodarone (13) Chronic kidney disease, stage 3a: Cr stable BMP in am (14) Hypokalemia: replaced and resolved (15) Vitamin D deficiency: ergocalciferol 50,000 units weekly x 8 weeks first dose 05/11/2020 (16) DVT prophylaxis: holding xarelto SCDs in meantime updated daughter by phone 05/07, 05/10, and 05/12 updated son-in-law on 05/13 needs rehab cont PT, OT Admission and Anticipated Discharge Date Admission Date: May 06, 2020 Subjective during AM rounds was very sleepy HOWEVER, staff report she slept VERY well last pm without sundowning this am ate nearly all of her breakfast and was quite interactive with staff during that time although she was sleepy she was able to wake up briefly but unable to provide extensive history Review of Systems Review of Systems: Unobtainable due to cognitive status Physical Exam Constitutional: + altered mental status; no acute distress ENMT: Mouth: + dry oral mucous membranes; no oropharynx abnormality Respiratory: normal respiratory effort, lungs clear to auscultation no respiratory distress Cardiovascular: Rate/Rhythm: regular rate and regular rhythm Heart Sounds: normal S1 and normal S2; no murmur Vessels: posterior tibial pulses present and dorsalis pedis pulses present; no JVD Extremities: no edema Gastrointestinal (Abdomen): Inspection/Auscultation: normal bowel sounds; abdomen not distended Percussion/Palpation: abdomen soft; abdomen nontender, no guarding and no hepatosplenomegaly Skin: + ecchymosis (severe- right flank extending to the right back - slightly worse than 05/12) Psychiatric: Orientation: oriented to person; + not alert, + not oriented to place and + not oriented to time Results & Data Results & Data ([facility]) Vital Signs (Past 12 Hours) Vital Signs Temp Pulse Resp BP BP Pulse Ox 05/13/20 21:02 66 141/61 H 05/13/20 20:23 64 126/66 05/13/20 15:36 36.7 C 59 L 18 146/67 H 98 Laboratory Results Laboratory Results - last 24 hr 05/13/20 05/13/20 05/13/20 05:02 05:02 05:02 WBC 5.93 RBC 2.67 L Hgb 7.9 L Hct 25.5 L MCV 95.5 MCH 29.6 MCHC 31.0 L RDW Std Deviation 51.7 H RDW Coeff of Elizabeth 14.9 H Plt Count 231 MPV 10.3 Sodium 147 H Potassium 4.2 Chloride 115 H Carbon Dioxide 29 Anion Gap 3.0 BUN 12 Creatinine 0.99 Est Cr Clr Drug Dosing 44.7 Est GFR ( Amer) 61.1 Est GFR (Non-Af Amer) 52.7 BUN/Creatinine Ratio 11.8 Glucose 90 Calcium 8.6 Lipase Vitamin B12 539 05/13/20 05:02 WBC RBC Hgb Hct MCV MCH MCHC RDW Std Deviation RDW Coeff of Elizabeth Plt Count MPV Sodium Potassium Chloride Carbon Dioxide Anion Gap BUN Creatinine Est Cr Clr Drug Dosing Est GFR ( Amer) Est GFR (Non-Af Amer) BUN/Creatinine Ratio Glucose Calcium Lipase 71 L Vitamin B12 PG Care Time/CCT Total # of Minutes Spent Total Time Spent with Patient: Total time spent is greater than 50% in coordination of care (as documented) at patient's floor/unit and/or counseling patient: Coding Level of Care Code 73103 Subseq Hosp Care Lvl 3 Diagnoses Metabolic encephalopathy G93.41 Hypernatremia E87.0 Acute blood loss anemia D62 Cholangitis K83.09 Choledocholithiasis K80.50 Acute cholecystitis K81.0 T11 vertebral fracture S22.089A Encounter type: initial encounter Fracture type: closed Fracture morphology: unspecified fracture morphology Dementia G20; F02.80 Dementia type: Parkinson's disease Dementia behavioral disturbance: without behavioral disturbance Hypertension I10 Hyperlipidemia E78.5 Parkinsons G20 Atrial fibrillation I48.0 Atrial fibrillation type: paroxysmal Chronic kidney disease, stage 3a N18.3 Hypokalemia E87.6 Vitamin D deficiency E55.9 DVT prophylaxis Z29.9 (1) T11 vertebral fracture Encounter type: initial encounter Fracture type: closed Fracture morphology: unspecified fracture morphology Qualified Code(s): S22.089A - Unspecified fracture of T11-T12 vertebra, initial encounter for closed fracture (2) Dementia Dementia type: Parkinson's disease Dementia behavioral disturbance: without behavioral disturbance Qualified Code(s): G20 - Parkinson's disease; F02.80 - Dementia in other diseases classified elsewhere without behavioral disturbance (3) Atrial fibrillation Atrial fibrillation type: paroxysmal Qualified Code(s): I48.0 - Paroxysmal atrial fibrillation
[2020-05-14 05:36] LABS: Hematocrit (blood only) 25.9 % (37-47); Hemoglobin 8.2 g/dL (12.0-16.0); Mean Corpuscular Hemoglobin 30.4 pg (25-34); Mean Corpuscular Hgb Conc 31.7 g/dL (32-36); Mean Corpuscular Volume 95.9 fL (80-100); Platelet Count 235 K/uL (130-400); RDW Coefficient of Variation 15.1 % (11.5-14.5); RDW Standard Deviation 52.7 fL (36.4-46.3); White Blood Count 7.05 K/uL (4.8-10.8)
[2020-05-14] MEDS: CARBIDOPA/LEVODOPA 50/200MG EXT REL TAB PO SCH ×2 (05:41→17:05)
[2020-05-14 06:00] LABS: Albumin Level 2.2 gm/dl (3.4-5.0); BUN Creatinine Ratio 12.7 (10-20); Bilirubin Direct 0.3 mg/dl (0-0.2); Calcium 8.3 mg/dl (8.5-10.1); Creatinine Clr Calc Pharmacy 43.8 ml/min; Est GFR (African American) 59.6; Est GFR (Non-African American) 51.4; Potassium 4.3 mmol/L (3.5-5.1)
[2020-05-14 06:03] LABS: Bilirubin,Total 1.3 mg/dl (0.2-1); Total Protein 5.4 gm/dl (6.4-8.2)
[2020-05-14] MEDS: CARBIDOPA/LEVODOPA 25/100MG TAB PO SCH ×4 (08:44→21:21)
[2020-05-14] MEDS: POTASSIUM CHLORIDE 20MEQ/15ML 473ML PO SCH (08:44)
[2020-05-14] MEDS: PANTOprazole 40 MG TAB PO SCH (08:45)
[2020-05-14] MEDS: ESCITALOPRAM OXALATE 10 MG TAB PO SCH (08:45)
[2020-05-14] MEDS: MEMANTINE HCL 10 MG TAB PO SCH ×2 (08:45→21:21)
[2020-05-14] MEDS: AMOXICILLIN/CLAVULANATE 875 MG TAB PO SCH ×2 (08:46→16:57)
[2020-05-14] MEDS: LACTOBACILLUS ACIDOPHILUS (FLORANEX) TAB PO SCH ×4 (08:46→21:20)
--- NOTE | 2020-05-14 08:49 | Surgery Progress Note ---
Date of Service May 14, 2020 Assessment & Plan (1) Cholecystitis: POD#5 laparoscopic cholecystectomy Over weekend pt noted to have ecchymosis of R flank region along with a downtrending Hbg. CT scan obtained shows small areas of hemorrhage intra- abdominally. Currently trending Hbg, today it is 8.2 from 7.9. Will continue to monitor, xarelto remains on hold for now. Using warm compress to side. Vital signs stable On regular diet Activity as tolerates Supervising Physician Co-Signing Physician Notes Patient seen and examined, labs and imaging and events over the weekend reviewed, agree with above. Status post laparoscopic cholecystectomy. Developed ecchymosis to her right flank over the weekend after removing drain that was filled with clot. CT showed some old hemorrhage. This is consistent with what we saw intraoperatively. Her hemoglobin hematocrit have remained essentially stable over the past 5 days since surgery. She is tolerating a diet, afebrile with stable vitals, abdomen with significant right flank ecchymosis, otherwise incisions clean dry and intact. Labs reviewed as above. Diet as tolerated, may restart Xarelto tomorrow if hematocrit remained stable. At this time she is asymptomatic and I do not think she needs a transfusion, but I will leave this up to the medicine team. Dispo per medicine. Subjective Patient examined resting in bed. Says she has some back pain, but denies abdominal pain. Tolerating a regular diet. Physical Exam Physical Exam: was sleeping, but easily arouable Respiratory: normal respiratory effort Gastrointestinal (Abdomen): Inspection/Auscultation: + abdominal surgical incision (c/d/i with dermabond overtop; dressing over prior MELISSA drain site) Percussion/Palpation: abdomen soft; abdomen nontender ecchymosis noted to R flank extending towards back, non tender to palpation Results & Data Vital Signs (Past 12 Hours) Vital Signs Temp Pulse Pulse Resp BP BP Pulse Ox 05/14/20 07:14 36.6 C 54 L 16 134/87 98 05/13/20 23:32 122/71 05/13/20 23:27 36.6 C 56 L 16 160/92 H 96 05/13/20 21:02 66 141/61 H PG Care Time/CCT Total # of Minutes Spent Total Time Spent with Patient: Total time spent is greater than 50% in coordination of care (as documented) at patient's floor/unit and/or counseling patient: Coding Level of Care Code None Diagnoses Cholecystitis K81.9
[2020-05-14] MEDS: FERROUS SULFATE 325 MG TAB PO SCH ×2 (09:18→21:21)
--- NOTE | 2020-05-14 14:48 | Hospitalist Progress Note ---
Date of Service May 14, 2020 Assessment & Plan (1) Metabolic encephalopathy: Improving in setting of known Parkinson's disease, dementia, prolonged hospitalization, and cholangitis/cholecystitis. hypernatremia could be contributing to this as well. cont to reinforce day/wake cycle. stopped all narcotics. Hypernatremia resolved . consider melatonin at HS - limited studies have shown modest efficacy with geriatric met encephalopathy. (2) Hypernatremia: Resolved continue to hold lasix (3) Acute blood loss anemia: Hgb stable, 8.2 today from 7.9 yesterday about 5.5gm drop since admission. had bleeding into flank on right. obtained noncontrast CT abd/pelvis - extensive bleeding right flank and in RUQ on that scan. Per general surgery - no surgical intervention, continue heating pad ferrous sulfate 325mg BID. (4) Cholangitis: s/p ERCP 05/[address] Morgan, [facility]. Purulence seen in CBD. Stone seen and extracted. CBD stent placed. Received IV zosyn since admission - stopped last evening. Now on PO augmentin BID to complete total 2 weeks of IV/PO abx. Recent abnormal LFTs had resolved. Lipase wnl. Appreciate [employer] [facility] assistance. (5) Choledocholithiasis: s/p ERCP with extraction and stent placement see above (6) Acute cholecystitis: s/p lap tim 05/09 doing well from surgical standpoint. MELISSA drain d/c on 05/11. tolerating regular diet. having bowel movements. pain controlled. Bili 1.3 today but mostly indirect Continue augmentin - see above. Continue to hold xarelto due to acute blood loss anemia. appreciate gen surg consultation and GI consultation. (7) T11 vertebral fracture: subacute. callus formation seen on imaging. no pain - found incidentally. spoke with spine surgery - nothing to do at this time. conservative management. defer on MRI imaging unless she has symptoms/signs of neuro compromise. vit D def - replace w/ ergocalciferol x [address] abd/pelvis saw the fracture again and it was stable. (8) Dementia: cont aricept cont namenda likely due to Parkinson's with superimposed met encephalopathy as above which is now improving (9) Hypertension: hold lasix (10) Hyperlipidemia: not on meds for such (11) Parkinsons: cont sinemet severe deconditioning - cont PT/OT -- needs rehab (12) Atrial fibrillation: hold xarelto due to acute blood loss anemia and bleeding in right flank - per surgery can restart tomorrow if hgb stable cont amiodarone (13) Chronic kidney disease, stage 3a: Cr stable BMP in am (14) Hypokalemia: replaced and resolved (15) Vitamin D deficiency: ergocalciferol 50,000 units weekly x 8 weeks first dose 05/11/2020 (16) DVT prophylaxis: holding xarelto - can restart tomorrow per surgery if hgb stable SCDs in meantime needs rehab cont PT, OT Daughter updated over the phone Admission and Anticipated Discharge Date Admission Date: May 06, 2020 Subjective Ms. Banks is feeling well today. Some mild pain at the back but tolerable. Denies numbness anywhere. ROS Constitutional: no chills, aches, sweats or fever Respiratory: no sob,cough, sputum, or wheezing Cardiac: no chest pain, palpitations, edema, orthopnea or lightheadedness GI: no abdominal pain, nausea, vomiting, diarrhea or constipation : no dysuria or hesitancy Extremities: no joint pain or weakness Skin: no rash All other systems reviewed and negative Physical Exam Physical Exam: General: no distress Eyes: normal inspection, PERLL Respiratory: chest non tender, clear to auscultation, normal breath sounds, no respiratory distress, no accessory muscle use Cardiac: regular rate and rhythm, no rub or gallop, no murmur, no edema, no jvd GI/: active bowel sounds, no abd pain or tenderness, soft, non distended Extremities: normal range of motion, normal strength, non tender Neuro/Psych: alert and oriented x 3, normal mood and affect Skin: normal color, dry Results & Data Results & Data ([facility]) Vital Signs (Past 12 Hours) Vital Signs Temp Pulse Resp BP Pulse Ox 05/14/20 07:14 36.6 C 54 L 16 134/87 98 PG Care Time/CCT Total # of Minutes Spent Total Time Spent with Patient: Total time spent is greater than 50% in coordination of care (as documented) at patient's floor/unit and/or counseling patient: Coding Level of Care Code 08454 Subseq Hosp Care Lvl 3 Diagnoses Metabolic encephalopathy G93.41 Hypernatremia E87.0 Acute blood loss anemia D62 Cholangitis K83.09 Choledocholithiasis K80.50 Acute cholecystitis K81.0 T11 vertebral fracture S22.089A Encounter type: initial encounter Fracture morphology: unspecified fracture morphology Fracture type: closed Dementia G20; F02.80 Dementia behavioral disturbance: without behavioral disturbance Dementia type: Parkinson's disease Hypertension I10 Hyperlipidemia E78.5 Parkinsons G20 Atrial fibrillation I48.0 Atrial fibrillation type: paroxysmal Chronic kidney disease, stage 3a N18.3 Hypokalemia E87.6 Vitamin D deficiency E55.9 DVT prophylaxis Z29.9 (1) Atrial fibrillation Atrial fibrillation type: paroxysmal Qualified Code(s): I48.0 - Paroxysmal atrial fibrillation (2) Dementia Dementia behavioral disturbance: without behavioral disturbance Dementia type: Parkinson's disease Qualified Code(s): G20 - Parkinson's disease; F02.80 - Dementia in other diseases classified elsewhere without behavioral disturbance (3) T11 vertebral fracture Encounter type: initial encounter Fracture morphology: unspecified fracture morphology Fracture type: closed Qualified Code(s): S22.089A - Unspecified fracture of T11-T12 vertebra, initial encounter for closed fracture
[2020-05-14] MEDS: TRAZODONE HCL 50 MG TAB PO SCH (21:16)
[2020-05-14] MEDS: DONEPEZIL HCL 10 MG TAB PO SCH (21:21)
[2020-05-14] MEDS: AMIODARONE 200 MG TAB PO SCH (21:21)
[2020-05-14] MEDS: clonazePAM 0.5 MG TAB PO SCH (21:22)
[2020-05-15 05:50] LABS: Eosinophils # (auto) 0.08 K/uL (0-0.5); Eosinophils % (auto) 1.3 %; Hemoglobin 7.7 g/dL (12.0-16.0); Immature Granulocytes # (auto) 0.08 K/uL (0.00-0.02); Immature Granulocytes % (auto) 1.3 %; Lymphocytes # (auto) 0.89 K/uL (1.2-3.4); Mean Corpuscular Hemoglobin 30.3 pg (25-34); Mean Corpuscular Hgb Conc 32.1 g/dL (32-36); Mean Corpuscular Volume 94.5 fL (80-100); Mean Platelet Volume 9.8 fL (7.4-10.4); Monocytes # (auto) 0.51 K/uL (0.11-0.59); Neutrophils % (auto) 75.4 %; Platelet Count 225 K/uL (130-400); RDW Coefficient of Variation 14.9 % (11.5-14.5); RDW Standard Deviation 51.7 fL (36.4-46.3); Red Blood Count 2.54 M/uL (4.2-5.4); White Blood Count 6.36 K/uL (4.8-10.8)
[2020-05-15 06:14] LABS: RBC Morphology Unremarkable
[2020-05-15] MEDS: CARBIDOPA/LEVODOPA 50/200MG EXT REL TAB PO SCH ×2 (06:23→17:31)
[2020-05-15 06:24] LABS: Albumin Level 2.1 gm/dl (3.4-5.0); BUN Creatinine Ratio 14.7 (10-20); Calcium 8.2 mg/dl (8.5-10.1); Creatinine Clr Calc Pharmacy 48.1 ml/min; Est GFR (African American) 66.7; Est GFR (Non-African American) 57.6; Potassium 4.2 mmol/L (3.5-5.1)
[2020-05-15 06:26] LABS: Albumin Globulin Ratio 0.7 (0.9-2); Bilirubin,Total 1.6 mg/dl (0.2-1); Globulin 2.9 gm/dl (2.5-4.0)
--- NOTE | 2020-05-15 08:08 | Surgery Progress Note ---
Date of Service May 15, 2020 Assessment & Plan (1) Cholecystitis: POD#6 laparoscopic cholecystitis VSS Hbg 7.7 from 8.2 yesterday, not acutely dropping. No concern for acute bleeding, likely old blood from surgery. From our standpoint okay to resume xarelto Regular diet Activity as carin. Follow up in clinic with Dr. Goddard within next 1-2 weeks Supervising Physician Co-Signing Physician Notes Patient seen and examined, labs reviewed, agree with above. doing well, tolerating diet. Flank echymossis stable. afvss, abd soft, nd, nt. incisions c/d/i. tbili up likely from resolving echymossis, hgb 7.9-8.2-7.7, overall stable. restart xarelto, repeat hgb tomorrow, follow up in clinic. okay to d/c per surgery. Subjective Patient said "i think i'm doing alright for an old woman." She is tolerating a diet and having BM's. Denies any abdominal pain other than when she coughs. Physical Exam Physical Exam: awake Gastrointestinal (Abdomen): Inspection/Auscultation: + abdominal surgical incision (c/d/i w/ dermabond, some ecchymosis keisha- subxiphoid incision) Percussion/Palpation: abdomen soft; abdomen nontender R flank ecchymosis noted Results & Data Vital Signs (Past 12 Hours) Vital Signs Temp Pulse Resp BP Pulse Ox 05/15/20 06:57 37.1 C 57 L 18 130/71 93 05/14/20 22:37 36.8 C 58 L 19 118/71 96 PG Care Time/CCT Total # of Minutes Spent Total Time Spent with Patient: Total time spent is greater than 50% in coordination of care (as documented) at patient's floor/unit and/or counseling patient: Coding Level of Care Code None Diagnoses Cholecystitis K81.9
[2020-05-15] MEDS: ESCITALOPRAM OXALATE 10 MG TAB PO SCH (08:48)
[2020-05-15] MEDS: AMOXICILLIN/CLAVULANATE 875 MG TAB PO SCH ×2 (08:48→17:31)
[2020-05-15] MEDS: CARBIDOPA/LEVODOPA 25/100MG TAB PO SCH ×4 (08:49→21:45)
[2020-05-15] MEDS: PANTOprazole 40 MG TAB PO SCH (08:50)
[2020-05-15] MEDS: MEMANTINE HCL 10 MG TAB PO SCH ×2 (08:51→21:45)
[2020-05-15] MEDS: LACTOBACILLUS ACIDOPHILUS (FLORANEX) TAB PO SCH ×4 (08:51→21:45)
[2020-05-15] MEDS: FERROUS SULFATE 325 MG TAB PO SCH ×2 (08:51→21:45)
[2020-05-15] MEDS: POTASSIUM CHLORIDE 20MEQ/15ML 473ML PO SCH (08:51)
--- NOTE | 2020-05-15 17:05 | Hospitalist Progress Note ---
Date of Service May 15, 2020 Assessment & Plan (1) Metabolic encephalopathy: Improving in setting of known Parkinson's disease, dementia, prolonged hospitalization, and cholangitis/cholecystitis. hypernatremia could have contributed, now resolved cont to reinforce day/wake cycle. stopped all narcotics. (2) Hypernatremia: Resolved Resume home lasix (3) Acute blood loss anemia: Hgb stable, 7.9,8.2 then 7.7 over the last 3 days about 5.5 gm drop since admission. had bleeding into flank on right obtained noncontrast CT abd/pelvis - extensive bleeding right flank and in RUQ on that scan. Per general surgery - no surgical intervention, continue heating pad ferrous sulfate 325mg BID. Surgery ok with resuming Xeralto (4) Cholangitis: s/p ERCP 05/[address] Morgan, [facility]. Purulence seen in CBD. Stone seen and extracted. CBD stent placed. Received IV zosyn since admission now transitioned to Now on PO augmentin BID to complete total 2 weeks of IV/PO abx - last day of abx 05/22 Recent abnormal LFTs had resolved, bili elevated likely secondary to resolving hematoma Lipase wnl. [facility] (5) Choledocholithiasis: s/p ERCP with extraction and stent placement see above (6) Acute cholecystitis: s/p lap tim 05/09 doing well from surgical standpoint. MELISSA drain d/c on 05/11. tolerating regular diet. having bowel movements. pain controlled. Bili 1.6 today but mostly indirect Continue augmentin - see above. Resume xarelto as above appreciate gen surg consultation and GI consultation. (7) T11 vertebral fracture: subacute. callus formation seen on imaging. no pain - found incidentally. spoke with spine surgery - nothing to do at this time. conservative management. defer on MRI imaging unless she has symptoms/signs of neuro compromise. vit D def - replace w/ ergocalciferol x [address] abd/pelvis saw the fracture again and it was stable. (8) Dementia: cont aricept cont namenda likely due to Parkinson's with superimposed met encephalopathy as above which is now improving (9) Hypertension: Resume lasix (10) Hyperlipidemia: not on meds for such (11) Parkinsons: cont sinemet severe deconditioning - cont PT/OT -- needs rehab (12) Atrial fibrillation: Resume xarelto as above cont amiodarone (13) Chronic kidney disease, stage 3a: Cr stable BMP in am (14) Hypokalemia: replaced and resolved (15) Vitamin D deficiency: ergocalciferol 50,000 units weekly x 8 weeks first dose 05/11/2020 (16) DVT prophylaxis: Resume xarelto SCDs in meantime needs rehab cont PT, OT Admission and Anticipated Discharge Date Admission Date: May 06, 2020 Subjective Ms. Banks feels well today. She has no complaints. ROS Constitutional: no chills, aches, sweats or fever Respiratory: no sob,cough, sputum, or wheezing Cardiac: no chest pain, palpitations, edema, orthopnea or lightheadedness GI: no abdominal pain, nausea, vomiting, diarrhea or constipation : no dysuria or hesitancy Extremities: no joint pain or weakness Skin: no rash All other systems reviewed and negative Physical Exam Physical Exam: General: no distress Eyes: normal inspection, PERLL Respiratory: chest non tender, clear to auscultation, normal breath sounds, no respiratory distress, no accessory muscle use Cardiac: regular rate and rhythm, no rub or gallop, no murmur, no edema, no jvd GI/: active bowel sounds, no abd pain or tenderness, soft, non distended Extremities: normal range of motion, normal strength, non tender Neuro/Psych: alert and oriented x 3, normal mood and affect Skin: normal color, dry, large area of ecchymosis right flank Results & Data Results & Data ([facility]) Vital Signs (Past 12 Hours) Vital Signs Temp Pulse Resp BP Pulse Ox 05/15/20 15:35 36.4 C L 59 L 16 123/68 93 05/15/20 06:57 37.1 C 57 L 18 130/71 93 PG Care Time/CCT Total # of Minutes Spent Total Time Spent with Patient: Total time spent is greater than 50% in coordination of care (as documented) at patient's floor/unit and/or counseling patient: Coding Level of Care Code 06945 Subseq Hosp Care Lvl 2 Diagnoses Metabolic encephalopathy G93.41 Hypernatremia E87.0 Acute blood loss anemia D62 Cholangitis K83.09 Choledocholithiasis K80.50 Acute cholecystitis K81.0 T11 vertebral fracture S22.089A Encounter type: initial encounter Fracture type: closed Fracture morphology: unspecified fracture morphology Dementia G20; F02.80 Dementia type: Parkinson's disease Dementia behavioral disturbance: without behavioral disturbance Hypertension I10 Hyperlipidemia E78.5 Parkinsons G20 Atrial fibrillation I48.0 Atrial fibrillation type: paroxysmal Chronic kidney disease, stage 3a N18.3 Hypokalemia E87.6 Vitamin D deficiency E55.9 DVT prophylaxis Z29.9 (1) T11 vertebral fracture Encounter type: initial encounter Fracture type: closed Fracture morphology: unspecified fracture morphology Qualified Code(s): S22.089A - Unspecified fracture of T11-T12 vertebra, initial encounter for closed fracture (2) Dementia Dementia type: Parkinson's disease Dementia behavioral disturbance: without behavioral disturbance Qualified Code(s): G20 - Parkinson's disease; F02.80 - Dementia in other diseases classified elsewhere without behavioral disturbance (3) Atrial fibrillation Atrial fibrillation type: paroxysmal Qualified Code(s): I48.0 - Paroxysmal atrial fibrillation
[2020-05-15] MEDS: TRAZODONE HCL 50 MG TAB PO SCH (21:44)
[2020-05-15] MEDS: RIVAROXABAN 15 MG TAB PO SCH (21:45)
[2020-05-15] MEDS: AMIODARONE 200 MG TAB PO SCH (21:45)
[2020-05-15] MEDS: DONEPEZIL HCL 10 MG TAB PO SCH (21:45)
[2020-05-15] MEDS: clonazePAM 0.5 MG TAB PO SCH (21:46)
[2020-05-16] MEDS: ACETAMINOPHEN 500 MG TAB PO PRN ×3 (02:19→15:17)
[2020-05-16] MEDS: CARBIDOPA/LEVODOPA 50/200MG EXT REL TAB PO SCH ×2 (05:41→17:43)
[2020-05-16 06:56] LABS: Eosinophils # (auto) 0.11 K/uL (0-0.5); Eosinophils % (auto) 1.6 %; Hematocrit (blood only) 28.7 % (37-47); Hemoglobin 8.9 g/dL (12.0-16.0); Immature Granulocytes % (auto) 1.5 %; Lymphocytes # (auto) 0.98 K/uL (1.2-3.4); Lymphocytes % (auto) 14.3 %; Mean Corpuscular Hemoglobin 29.3 pg (25-34); Mean Corpuscular Volume 94.4 fL (80-100); Mean Platelet Volume 10.2 fL (7.4-10.4); Monocytes # (auto) 0.58 K/uL (0.11-0.59); Monocytes % (auto) 8.5 %; Neutrophils # (auto) 5.07 K/uL (1.4-6.5); Neutrophils % (auto) 74.1 %; Nucleated RBC # (auto) 0.05 K/uL (0-0); Nucleated RBC % (auto) 0.8 %; Platelet Count 290 K/uL (130-400); RDW Coefficient of Variation 15.1 % (11.5-14.5); RDW Standard Deviation 51.7 fL (36.4-46.3); Red Blood Count 3.04 M/uL (4.2-5.4); White Blood Count 6.84 K/uL (4.8-10.8)
[2020-05-16 07:25] LABS: Albumin Level 2.5 gm/dl (3.4-5.0); BUN Creatinine Ratio 16.2 (10-20); Calcium 8.7 mg/dl (8.5-10.1); Creatinine Clr Calc Pharmacy 50.9 ml/min; Est GFR (African American) 71.4; Est GFR (Non-African American) 61.6; Potassium 3.9 mmol/L (3.5-5.1)
[2020-05-16 07:28] LABS: Albumin Globulin Ratio 0.7 (0.9-2); Bilirubin,Total 1.9 mg/dl (0.2-1); Globulin 3.6 gm/dl (2.5-4.0); Total Protein 6.1 gm/dl (6.4-8.2)
[2020-05-16] MEDS: LACTOBACILLUS ACIDOPHILUS (FLORANEX) TAB PO SCH ×4 (07:39→20:57)
[2020-05-16] MEDS: AMOXICILLIN/CLAVULANATE 875 MG TAB PO SCH ×2 (08:52→17:42)
[2020-05-16] MEDS: FERROUS SULFATE 325 MG TAB PO SCH ×2 (08:52→20:56)
[2020-05-16] MEDS: PANTOprazole 40 MG TAB PO SCH (08:53)
[2020-05-16] MEDS: MEMANTINE HCL 10 MG TAB PO SCH ×2 (08:53→20:59)
[2020-05-16] MEDS: ESCITALOPRAM OXALATE 10 MG TAB PO SCH (08:53)
[2020-05-16] MEDS: POTASSIUM CHLORIDE 20MEQ/15ML 473ML PO SCH (08:54)
[2020-05-16] MEDS: CARBIDOPA/LEVODOPA 25/100MG TAB PO SCH ×4 (08:54→20:59)
[2020-05-16] MEDS: FUROSEMIDE 20 MG TAB PO SCH (09:32)
--- NOTE | 2020-05-16 10:00 | Surgery Progress Note ---
Date of Service May 16, 2020 Assessment & Plan (1) Cholecystitis: POD #7 laparoscopic cholecystectomy, doing well, hemoglobin stable on Xarelto Diet as tolerated Activity restrictions and wound care instructions reviewed Continue Xarelto Okay to DC from general surgery standpoint, disposal per medicine Surgery will sign off, call with questions or concerns Follow-up in clinic in next few weeks Return precautions given, call with questions or concerns Subjective 84-year-old female PPD #8 ERCP, POD #7 laparoscopic cholecystectomy for acute cholecystitis and cholangitis. Overall doing well, restarted Xarelto yesterday. Tolerating diet. Physical Exam Constitutional: WD/WN, vitals as above Gastrointestinal (Abdomen): normal bowel sounds, soft, nontender, no hepatosplenomegaly Inspection/Auscultation: + abdominal surgical incision (Incisions healing well, resolving flank ecchymosis) Results & Data Vital Signs (Past 12 Hours) Vital Signs Temp Pulse Pulse Resp BP Pulse Ox 05/16/20 07:25 36.5 C 56 L 16 150/73 H 98 05/15/20 23:36 36.4 C L 57 L 17 115/72 95 Laboratory Results Laboratory Results - last 24 hr 05/16/20 05/16/20 06:12 06:12 WBC 6.84 RBC 3.04 L Hgb 8.9 L Hct 28.7 L MCV 94.4 MCH 29.3 MCHC 31.0 L RDW Std Deviation 51.7 H RDW Coeff of Elizabeth 15.1 H Plt Count 290 MPV 10.2 Immature Gran % (Auto) 1.5 Neut % (Auto) 74.1 Lymph % (Auto) 14.3 Tyler % (Auto) 8.5 Eos % (Auto) 1.6 Baso % (Auto) 0.0 Neut # (Auto) 5.07 Lymph # (Auto) 0.98 L Tyler # (Auto) 0.58 Eos # (Auto) 0.11 Baso # (Auto) 0.00 Immature Gran # (Auto) 0.10 H Absolute Nucleated RBC 0.05 H Nucleated RBC % (auto) 0.8 Sodium 143 Potassium 3.9 Chloride 110 H Carbon Dioxide 28 Anion Gap 5.0 BUN 14 Creatinine 0.87 Est Cr Clr Drug Dosing 50.9 Est GFR ( Amer) 71.4 Est GFR (Non-Af Amer) 61.6 BUN/Creatinine Ratio 16.2 Glucose 90 Calcium 8.7 Total Bilirubin 1.9 H AST 37 ALT 14 Alkaline Phosphatase 137 H Total Protein 6.1 L D Albumin 2.5 L Globulin 3.6 Albumin/Globulin Ratio 0.7 L PG Care Time/CCT Total # of Minutes Spent Total Time Spent with Patient: Total time spent is greater than 50% in coordination of care (as documented) at patient's floor/unit and/or counseling patient: Coding Level of Care Code None Diagnoses Cholecystitis K81.9
[2020-05-16 13:58] LABS: Appearance Urine Clear (Clear); Bilirubin Urine Negative (Negative); Blood Urine Negative (Negative); Color Urine Yellow; Glucose Urine UA Negative (Negative); Ketones Urine Trace (Negative); Leukocyte Esterase Urine Trace (Negative); Nitrite Urine Negative (Negative); Protein Urine Negative (Negative); Specific Gravity Urine 1.016 (1.000-1.030); Urobilinogen Urine Negative (Negative)
[2020-05-16 14:18] LABS: Bacteria Urine 1+ (Negative); Epithelial Cell Urine >30 /lpf (0-5); Hyaline Casts Urine 0-5 /lpf (0-5); RBC Urine 0-4 /hpf (0-4)
--- NOTE | 2020-05-16 14:24 | Hospitalist Progress Note ---
Date of Service May 16, 2020 Assessment & Plan (1) Metabolic encephalopathy: Improving, patient oriented but with some confusion. in setting of known Parkinson's disease, dementia, prolonged hospitalization, and cholangitis/cholecystitis. hypernatremia could have contributed, now resolved cont to reinforce day/wake cycle. stopped all narcotics. (2) Hypernatremia: Resolved Resume home lasix (3) Acute blood loss anemia: Hgb stable about 5.5 gm drop since admission. had bleeding into flank on right obtained noncontrast CT abd/pelvis - extensive bleeding right flank and in RUQ on that scan. Per general surgery - no surgical intervention, continue heating pad ferrous sulfate 325mg BID. Xeralto resumed 05/15 (4) [facility]: [facility] Purulence seen in CBD. Stone seen and extracted. CBD stent placed. Received IV zosyn since admission now transitioned to PO augmentin BID to complete total 2 weeks of IV/PO abx - last day of abx 05/22 Recent abnormal LFTs had resolved, bili elevated likely secondary to resolving hematoma Lipase wnl. (5) Choledocholithiasis: s/p ERCP with extraction and stent placement see above (6) Acute cholecystitis: s/p lap tim 05/09 doing well from surgical standpoint. MELISSA drain d/c on 05/11. tolerating regular diet. having bowel movements. pain controlled. Bili slightly elevated, likely secondary to resolving hematoma Continue augmentin - see above. Xeralto resumed appreciate gen surg consultation and GI consultation - both have signed off at this point (7) T11 vertebral fracture: subacute. callus formation seen on imaging. no pain - found incidentally. spoke with spine surgery - nothing to do at this time. conservative management. defer on MRI imaging unless she has symptoms/signs of neuro compromise. vit D def - replace w/ ergocalciferol x [address] abd/pelvis saw the fracture again and it was stable. (8) Dementia: cont aricept cont namenda likely due to Parkinson's with superimposed met encephalopathy as above which is now improving (9) Hypertension: Resume lasix (10) Hyperlipidemia: not on meds for such (11) Parkinsons: cont sinemet severe deconditioning - cont PT/OT -- needs rehab (12) Atrial fibrillation: Resume xarelto as above cont amiodarone (13) Chronic kidney disease, stage 3a: Cr stable Continue to monitor (14) Hypokalemia: replaced and resolved (15) Vitamin D deficiency: ergocalciferol 50,000 units weekly x 8 weeks first dose 05/11/2020 (16) DVT prophylaxis: Xarelto SCDs in meantime needs rehab cont PT, OT Attempted to update daughter but no answer. Admission and Anticipated Discharge Date Admission Date: May 06, 2020 Subjective Up to a chair at the time of my assessment. Only complaint is difficulty urinating. No aches or chills, afebrile, no leukocytosis. ROS Constitutional: no chills, aches, sweats or fever Respiratory: no sob,cough, sputum, or wheezing Cardiac: no chest pain, palpitations, edema, orthopnea or lightheadedness GI: no abdominal pain, nausea, vomiting, diarrhea or constipation : see HPI Extremities: no joint pain or weakness Skin: no rash All other systems reviewed and negative Physical Exam Physical Exam: General: no distress Eyes: normal inspection, PERLL Respiratory: chest non tender, clear to auscultation, normal breath sounds, no respiratory distress, no accessory muscle use Cardiac: regular rate and rhythm, no rub or gallop, no murmur, no edema, no jvd GI/: active bowel sounds, no abd pain or tenderness, soft, non distended Extremities: normal range of motion, normal strength, non tender Neuro/Psych: alert and oriented x 3, normal mood and affect Skin: normal color, dry Results & Data Results & Data ([facility]) Vital Signs (Past 12 Hours) Vital Signs Temp Pulse Resp BP Pulse Ox 05/16/20 07:25 36.5 C 56 L 16 150/73 H 98 PG Care Time/CCT Total # of Minutes Spent Total Time Spent with Patient: Total time spent is greater than 50% in coordination of care (as documented) at patient's floor/unit and/or counseling patient: Coding Level of Care Code 74322 Subseq Hosp Care Lvl 2 Diagnoses Metabolic encephalopathy G93.41 Hypernatremia E87.0 Acute blood loss anemia D62 Cholangitis K83.09 Choledocholithiasis K80.50 Acute cholecystitis K81.0 T11 vertebral fracture S22.089A Encounter type: initial encounter Fracture type: closed Fracture morphology: unspecified fracture morphology Dementia G20; F02.80 Dementia type: Parkinson's disease Dementia behavioral disturbance: without behavioral disturbance Hypertension I10 Hyperlipidemia E78.5 Parkinsons G20 Atrial fibrillation I48.0 Atrial fibrillation type: paroxysmal Chronic kidney disease, stage 3a N18.3 Hypokalemia E87.6 Vitamin D deficiency E55.9 DVT prophylaxis Z29.9 (1) T11 vertebral fracture Encounter type: initial encounter Fracture type: closed Fracture morphology: unspecified fracture morphology Qualified Code(s): S22.089A - Unspecified fracture of T11-T12 vertebra, initial encounter for closed fracture (2) Dementia Dementia type: Parkinson's disease Dementia behavioral disturbance: without behavioral disturbance Qualified Code(s): G20 - Parkinson's disease; F02.80 - Dementia in other diseases classified elsewhere without behavioral disturbance (3) Atrial fibrillation Atrial fibrillation type: paroxysmal Qualified Code(s): I48.0 - Paroxysmal atrial fibrillation
[2020-05-16] MEDS: AMIODARONE 200 MG TAB PO SCH (20:56)
[2020-05-16] MEDS: DONEPEZIL HCL 10 MG TAB PO SCH (20:56)
[2020-05-16] MEDS: TRAZODONE HCL 50 MG TAB PO SCH (20:58)
[2020-05-16] MEDS: RIVAROXABAN 15 MG TAB PO SCH (20:59)
[2020-05-16] MEDS: clonazePAM 0.5 MG TAB PO SCH (20:59)
[2020-05-17] MEDS ORDERED: COUGH DROP (SUGAR FREE) LOZ 24 LOZ/1 BOX BUCCAL ONE (01:54)
[2020-05-17] MEDS: CARBIDOPA/LEVODOPA 50/200MG EXT REL TAB PO SCH ×2 (06:22→18:10)
[2020-05-17 06:38] LABS: Mean Corpuscular Hemoglobin 29.9 pg (25-34); Mean Corpuscular Volume 93.3 fL (80-100); Mean Platelet Volume 10.1 fL (7.4-10.4); Nucleated RBC # (auto) 0.05 K/uL (0-0); Nucleated RBC % (auto) 0.8 %; Platelet Count 262 K/uL (130-400); RDW Coefficient of Variation 15.3 % (11.5-14.5); RDW Standard Deviation 51.8 fL (36.4-46.3); Red Blood Count 2.68 M/uL (4.2-5.4); White Blood Count 6.24 K/uL (4.8-10.8)
[2020-05-17 07:05] LABS: Albumin Level 2.2 gm/dl (3.4-5.0); BUN Creatinine Ratio 17.7 (10-20); Calcium 8.3 mg/dl (8.5-10.1); Creatinine Clr Calc Pharmacy 52.7 ml/min; Est GFR (African American) 74.5; Est GFR (Non-African American) 64.3; Potassium 3.9 mmol/L (3.5-5.1)
[2020-05-17 07:08] LABS: Albumin Globulin Ratio 0.7 (0.9-2); Bilirubin,Total 1.6 mg/dl (0.2-1); Globulin 3.1 gm/dl (2.5-4.0); Total Protein 5.3 gm/dl (6.4-8.2)
[2020-05-17] MEDS: POTASSIUM CHLORIDE 20MEQ/15ML 473ML PO SCH (08:58)
[2020-05-17] MEDS: FERROUS SULFATE 325 MG TAB PO SCH ×2 (08:58→20:22)
[2020-05-17] MEDS: ESCITALOPRAM OXALATE 10 MG TAB PO SCH (08:59)
[2020-05-17] MEDS: AMOXICILLIN/CLAVULANATE 875 MG TAB PO SCH ×2 (08:59→16:22)
[2020-05-17] MEDS: PANTOprazole 40 MG TAB PO SCH (09:00)
[2020-05-17] MEDS: FUROSEMIDE 20 MG TAB PO SCH (09:00)
[2020-05-17] MEDS: CARBIDOPA/LEVODOPA 25/100MG TAB PO SCH ×4 (09:01→20:24)
[2020-05-17] MEDS: LACTOBACILLUS ACIDOPHILUS (FLORANEX) TAB PO SCH ×4 (09:01→20:19)
[2020-05-17] MEDS: MEMANTINE HCL 10 MG TAB PO SCH ×2 (09:02→20:20)
--- NOTE | 2020-05-17 15:32 | Hospitalist Progress Note ---
Date of Service May 17, 2020 Assessment & Plan (1) Metabolic encephalopathy: Improving, patient oriented but with some confusion. in setting of known Parkinson's disease, dementia, prolonged hospitalization, and cholangitis/cholecystitis. hypernatremia could have contributed, now resolved cont to reinforce day/wake cycle. stopped all narcotics. (2) Hypernatremia: Resolved Resume home lasix (3) Acute blood loss anemia: Hgb stable about 5.5 gm drop since admission. had bleeding into flank on right obtained noncontrast CT abd/pelvis - extensive bleeding right flank and in RUQ on that scan. Per general surgery - no surgical intervention, continue heating pad ferrous sulfate 325mg BID. Xeralto resumed 05/15 (4) Ch[facility]angitis: [facility]/p [facility] [facility] Purulence seen in CBD. Stone seen and extracted. CBD stent placed. Received IV zosyn since admission now transitioned to PO augmentin BID to complete total 2 weeks of IV/PO abx - last day of abx 05/22 Recent abnormal LFTs had resolved, bili now decreasing Lipase wnl. (5) Choledocholithiasis: s/p ERCP with extraction and stent placement see above (6) Acute cholecystitis: s/p lap tim 05/09 doing well from surgical standpoint. MELISSA drain d/c on 05/11. tolerating regular diet. having bowel movements. pain controlled. Bili slightly elevated, likely secondary to resolving hematoma Continue augmentin - see above. Xeralto resumed appreciate gen surg consultation and GI consultation - both have signed off at this point (7) T11 vertebral fracture: subacute. callus formation seen on imaging. no pain - found incidentally. spoke with spine surgery - nothing to do at this time. conservative management. defer on MRI imaging unless she has symptoms/signs of neuro compromise. vit D def - replace w/ ergocalciferol x [address] abd/pelvis saw the fracture again and it was stable. (8) Dementia: cont aricept cont namenda likely due to Parkinson's (9) Hypertension: Continue lasix (10) Hyperlipidemia: not on meds for such (11) Parkinsons: cont sinemet severe deconditioning - cont PT/OT -- needs rehab (12) Atrial fibrillation: Continue xarelto cont amiodarone (13) Chronic kidney disease, stage 3a: Cr stable Continue to monitor (14) Hypokalemia: replaced and resolved (15) Vitamin D deficiency: ergocalciferol 50,000 units weekly x 8 weeks first dose 05/11/2020 (16) Urinary retention: Unclear why - secondary to Parkinson's disease? Urine culture pending Straight cathed for 900 mls this afternoon (17) DVT prophylaxis: Prema Villanueva Dispo: rehab, awaiting COVID swab results Attempted to update daughter by phone but no answer, left message Admission and Anticipated Discharge Date Admission Date: May 06, 2020 Subjective Ms. Banks denies any complaints but seems very tired today. Her nurse reports she did not eat much. Her vital signs and lab work are stable. She denies any pain anywhere. She continues to have urinary retention. ROS Constitutional: no chills, aches, sweats or fever Respiratory: no sob,cough, sputum, or wheezing Cardiac: no chest pain, palpitations, edema, orthopnea or lightheadedness GI: no abdominal pain, nausea, vomiting, diarrhea or constipation : see HPI Extremities: no joint pain or weakness Skin: no rash All other systems reviewed and negative Physical Exam Physical Exam: General: no distress Eyes: normal inspection, PERLL Respiratory: chest non tender, clear to auscultation, normal breath sounds, no respiratory distress, no accessory muscle use Cardiac: regular rate and rhythm, no rub or gallop, no murmur, no edema, no jvd GI/: active bowel sounds, no abd pain or tenderness, soft, non distended Extremities: normal range of motion, normal strength, non tender Neuro/Psych: alert and oriented x 3, normal mood and affect Skin: normal color, dry Results & Data Results & Data ([facility]) Vital Signs (Past 12 Hours) Vital Signs Temp Pulse Resp BP Pulse Ox 05/17/20 15:07 37.1 C 58 L 18 115/68 95 05/17/20 13:07 62 17 149/82 H 96 05/17/20 07:17 36.7 C 57 L 16 119/72 93 PG Care Time/CCT Total # of Minutes Spent Total Time Spent with Patient: Total time spent is greater than 50% in coordination of care (as documented) at patient's floor/unit and/or counseling patient: Coding Level of Care Code 85038 Subseq Hosp Care Lvl 3 Diagnoses Metabolic encephalopathy G93.41 Hypernatremia E87.0 Acute blood loss anemia D62 Cholangitis K83.09 Choledocholithiasis K80.50 Acute cholecystitis K81.0 T11 vertebral fracture S22.089A Encounter type: initial encounter Fracture morphology: unspecified fracture morphology Fracture type: closed Dementia G20; F02.80 Dementia behavioral disturbance: without behavioral disturbance Dementia type: Parkinson's disease Hypertension I10 Hyperlipidemia E78.5 Parkinsons G20 Atrial fibrillation I48.0 Atrial fibrillation type: paroxysmal Chronic kidney disease, stage 3a N18.3 Hypokalemia E87.6 Vitamin D deficiency E55.9 Urinary retention R33.9 DVT prophylaxis Z29.9 (1) Atrial fibrillation Atrial fibrillation type: paroxysmal Qualified Code(s): I48.0 - Paroxysmal atrial fibrillation (2) Dementia Dementia behavioral disturbance: without behavioral disturbance Dementia type: Parkinson's disease Qualified Code(s): G20 - Parkinson's disease; F02.80 - Dementia in other diseases classified elsewhere without behavioral disturbance (3) T11 vertebral fracture Encounter type: initial encounter Fracture morphology: unspecified fracture morphology Fracture type: closed Qualified Code(s): S22.089A - Unspecified fracture of T11-T12 vertebra, initial encounter for closed fracture
[2020-05-17] MEDS ORDERED: cefTRIAXone SODIUM 2,000 MG in DEXTROSE 5% 50 ML IV SCH (16:00)
--- NOTE | 2020-05-17 18:55 | XRay Report ---
XR chest 2V PA/lateral HISTORY: 84 years-old Female sob acute shortness of breath COMPARISON: CT abdomen pelvis 05/13/2020, chest radiograph 05/06/2020 TECHNIQUE: AP and lateral views of the chest FINDINGS: Cardiac silhouette is enlarged. Dense mitral annular calcifications. Small right and trace left pleur al effusions with right greater than left bibasilar opacities redemonstrated. No pneumothorax or over t pulmonary edema. Degenerative changes of the shoulders and spine. IMPRESSION: 1. Trace left and small right pleural effusions with right greater than left bibasilar opacities sugg estive of atelectasis versus pneumonitis, similar to the study from 05/13/2020. 2. Cardiomegaly. ACT 112: Negative or not required by law. The above report was generated using voice recognition software. It may contain grammatical, syntax o r spelling errors. Electronically signed by: Meliton Wood M.D. 05/17/2020 6:54 PM
[2020-05-17] MEDS: AMIODARONE 200 MG TAB PO SCH (20:19)
[2020-05-17] MEDS: DONEPEZIL HCL 10 MG TAB PO SCH (20:21)
[2020-05-17] MEDS: RIVAROXABAN 15 MG TAB PO SCH (20:22)
[2020-05-17] MEDS: clonazePAM 0.5 MG TAB PO SCH (20:26)
[2020-05-17] MEDS: TRAZODONE HCL 50 MG TAB PO SCH (20:27)
[2020-05-18] MEDS: ACETAMINOPHEN 500 MG TAB PO PRN (06:11)
[2020-05-18] MEDS: CARBIDOPA/LEVODOPA 50/200MG EXT REL TAB PO SCH ×2 (06:12→17:07)
[2020-05-18 06:55] LABS: Hematocrit (blood only) 24.1 % (37-47); Hemoglobin 7.8 g/dL (12.0-16.0); Mean Corpuscular Hgb Conc 32.4 g/dL (32-36); Mean Corpuscular Volume 92.7 fL (80-100); RDW Coefficient of Variation 15.1 % (11.5-14.5); RDW Standard Deviation 51.6 fL (36.4-46.3); White Blood Count 7.62 K/uL (4.8-10.8)
[2020-05-18 06:56] LABS: Eosinophils # (auto) 0.06 K/uL (0-0.5); Eosinophils % (auto) 0.8 %; Immature Granulocytes # (auto) 0.08 K/uL (0.00-0.02); Lymphocytes % (auto) 7.9 %; Mean Platelet Volume 9.5 fL (7.4-10.4); Monocytes # (auto) 0.61 K/uL (0.11-0.59); Neutrophils # (auto) 6.27 K/uL (1.4-6.5); Neutrophils % (auto) 82.3 %; Nucleated RBC # (auto) 0.05 K/uL (0-0); Nucleated RBC % (auto) 0.6 %; Platelet Count 245 K/uL (130-400)
[2020-05-18 07:23] LABS: Albumin Level 2.3 gm/dl (3.4-5.0); BUN Creatinine Ratio 13.7 (10-20); Calcium 8.2 mg/dl (8.5-10.1); Creatinine Clr Calc Pharmacy 47.1 ml/min; Est GFR (Non-African American) 56.1; Potassium 3.8 mmol/L (3.5-5.1)
[2020-05-18 07:24] LABS: Hypochromasia Present; Polychromasia 1+
[2020-05-18 07:25] LABS: Albumin Globulin Ratio 0.7 (0.9-2); Bilirubin,Total 1.8 mg/dl (0.2-1); Globulin 3.1 gm/dl (2.5-4.0); Total Protein 5.4 gm/dl (6.4-8.2)
[2020-05-18] MEDS: AMOXICILLIN/CLAVULANATE 875 MG TAB PO SCH ×2 (08:09→17:07)
[2020-05-18] MEDS: LACTOBACILLUS ACIDOPHILUS (FLORANEX) TAB PO SCH ×4 (08:09→20:06)
[2020-05-18] MEDS: FERROUS SULFATE 325 MG TAB PO SCH ×2 (08:53→20:09)
[2020-05-18] MEDS: FUROSEMIDE 20 MG TAB PO SCH (08:53)
[2020-05-18] MEDS: MEMANTINE HCL 10 MG TAB PO SCH ×2 (08:54→20:08)
[2020-05-18] MEDS: ESCITALOPRAM OXALATE 10 MG TAB PO SCH (08:54)
[2020-05-18] MEDS: POTASSIUM CHLORIDE 20MEQ/15ML 473ML PO SCH (08:54)
[2020-05-18] MEDS: PANTOprazole 40 MG TAB PO SCH (08:55)
[2020-05-18] MEDS: CARBIDOPA/LEVODOPA 25/100MG TAB PO SCH ×4 (08:55→20:10)
--- NOTE | 2020-05-18 18:05 | Hospitalist Progress Note ---
Date of Service May 18, 2020 Assessment & Plan (1) Metabolic encephalopathy: Improving, patient oriented but with some confusion. in setting of known Parkinson's disease, dementia, prolonged hospitalization, and cholangitis/cholecystitis. hypernatremia could have contributed, now resolved cont to reinforce day/wake cycle. stopped all narcotics. (2) Hypernatremia: Resolved Resume home lasix (3) Acute blood loss anemia: Hgb stable around 8 about 5.5 gm drop since admission. had bleeding into flank on right obtained noncontrast CT abd/pelvis - extensive bleeding right flank and in RUQ on that scan. Per general surgery - no surgical intervention, continue heating pad ferrous sulfate 325mg BID. Xeralto resumed 05/15 (4) Cholangitis: s/p ERCP 05/[address] Morgan [facility]. Purulence seen in CBD. Stone seen and extracted. CBD stent placed. Received IV zosyn since admission now transitioned to PO augmentin BID to complete total 2 weeks of IV/PO abx - last day of abx 05/22 Recent abnormal LFTs had resolved, bili elevated but likely secondary to resolving hematoma Lipase wnl. (5) Choledocholithiasis: s/p ERCP with extraction and stent placement see above (6) Acute cholecystitis: s/p lap tim 05/09 doing well from surgical standpoint. MELISSA drain d/c on 05/11. tolerating regular diet. having bowel movements. pain controlled. Bili slightly elevated, likely secondary to resolving hematoma Continue augmentin - see above. Xeralto resumed appreciate gen surg consultation and GI consultation - both have signed off at this point (7) T11 vertebral fracture: subacute. callus formation seen on imaging. no pain - found incidentally. spoke with spine surgery - nothing to do at this time. conservative management. defer on MRI imaging unless she has symptoms/signs of neuro compromise. vit D def - replace w/ ergocalciferol x [address] abd/pelvis 05/13 saw the fracture again and it was stable. (8) Dementia: cont aricept cont namenda likely due to Parkinson's (9) Hypertension: Continue lasix (10) Hyperlipidemia: not on meds for such (11) Parkinsons: cont sinemet severe deconditioning - cont PT/OT -- needs rehab (12) Atrial fibrillation: Continue xarelto cont amiodarone (13) Chronic kidney disease, stage 3a: Cr stable Continue to monitor (14) Hypokalemia: replaced and resolved (15) Vitamin D deficiency: ergocalciferol 50,000 units weekly x 8 weeks first dose 05/11/2020 (16) Urinary retention: Unclear why - secondary to Parkinson's disease? Urine culture growing yeast Straight cathed as needed (17) DVT prophylaxis: Izaiahrelyamilka, SCDs Dispo: rehab - likely will have a bed Thursday Admission and Anticipated Discharge Date Admission Date: May 06, 2020 Subjective Ms. Banks has no complaints today. She continues to have diminished appetite but is not having any abdominal pain ROS Constitutional: no chills, aches, sweats or fever Respiratory: no sob,cough, sputum, or wheezing Cardiac: no chest pain, palpitations, edema, orthopnea or lightheadedness GI: no abdominal pain, nausea, vomiting, diarrhea or constipation : see HPI Extremities: no joint pain or weakness Skin: no rash All other systems reviewed and negative Physical Exam Physical Exam: General: no distress Eyes: normal inspection, PERLL Respiratory: chest non tender, clear to auscultation, normal breath sounds, no respiratory distress, no accessory muscle use Cardiac: regular rate and rhythm, no rub or gallop, no murmur, no edema, no jvd GI/: active bowel sounds, no abd pain or tenderness, soft, non distended Extremities: normal range of motion, normal strength, non tender Neuro/Psych: alert and oriented x 3, normal mood and affect Skin: normal color, dry, severe ecchymosis right flank Results & Data Results & Data ([facility]) Vital Signs (Past 12 Hours) Vital Signs Temp Pulse Pulse Resp BP Pulse Ox 05/18/20 15:12 36.7 C 60 16 107/58 L 94 05/18/20 07:49 36.9 C 57 L 16 102/62 97 PG Care Time/CCT Total # of Minutes Spent Total Time Spent with Patient: Total time spent is greater than 50% in coordination of care (as documented) at patient's floor/unit and/or counseling patient: Coding Level of Care Code 19562 Subseq Hosp Care Lvl 2 Diagnoses Metabolic encephalopathy G93.41 Hypernatremia E87.0 Acute blood loss anemia D62 Cholangitis K83.09 Choledocholithiasis K80.50 Acute cholecystitis K81.0 T11 vertebral fracture S22.089A Encounter type: initial encounter Fracture type: closed Fracture morphology: unspecified fracture morphology Dementia G20; F02.80 Dementia type: Parkinson's disease Dementia behavioral disturbance: without behavioral disturbance Hypertension I10 Hyperlipidemia E78.5 Parkinsons G20 Atrial fibrillation I48.0 Atrial fibrillation type: paroxysmal Chronic kidney disease, stage 3a N18.3 Hypokalemia E87.6 Vitamin D deficiency E55.9 Urinary retention R33.9 DVT prophylaxis Z29.9 (1) T11 vertebral fracture Encounter type: initial encounter Fracture type: closed Fracture morphology: unspecified fracture morphology Qualified Code(s): S22.089A - Unspecified fracture of T11-T12 vertebra, initial encounter for closed fracture (2) Dementia Dementia type: Parkinson's disease Dementia behavioral disturbance: without behavioral disturbance Qualified Code(s): G20 - Parkinson's disease; F02.80 - Dementia in other diseases classified elsewhere without behavioral disturbance (3) Atrial fibrillation Atrial fibrillation type: paroxysmal Qualified Code(s): I48.0 - Paroxysmal atrial fibrillation
[2020-05-18] MEDS: AMIODARONE 200 MG TAB PO SCH (20:06)
[2020-05-18] MEDS: DONEPEZIL HCL 10 MG TAB PO SCH (20:09)
[2020-05-18] MEDS: RIVAROXABAN 15 MG TAB PO SCH (20:09)
[2020-05-18] MEDS: TRAZODONE HCL 50 MG TAB PO SCH (20:10)
[2020-05-18] MEDS: clonazePAM 0.5 MG TAB PO SCH (20:14)
[2020-05-19] MEDS: CARBIDOPA/LEVODOPA 50/200MG EXT REL TAB PO SCH (06:15)
[2020-05-19] MEDS: ALENDRONATE SODIUM 70 MG TAB PO SCH (06:15)
[2020-05-19] MEDS: CARBIDOPA/LEVODOPA 25/100MG TAB PO SCH ×2 (08:39→12:35)
[2020-05-19] MEDS: LACTOBACILLUS ACIDOPHILUS (FLORANEX) TAB PO SCH ×2 (08:40→12:35)
[2020-05-19] MEDS: AMOXICILLIN/CLAVULANATE 875 MG TAB PO SCH (08:40)
[2020-05-19] MEDS: ESCITALOPRAM OXALATE 10 MG TAB PO SCH (08:41)
[2020-05-19] MEDS: FERROUS SULFATE 325 MG TAB PO SCH (08:41)
[2020-05-19] MEDS: FUROSEMIDE 20 MG TAB PO SCH (08:42)
[2020-05-19] MEDS: MEMANTINE HCL 10 MG TAB PO SCH (08:42)
[2020-05-19] MEDS: POTASSIUM CHLORIDE 20MEQ/15ML 473ML PO SCH (08:42)
[2020-05-19] MEDS: PANTOprazole 40 MG TAB PO SCH (08:42)
[2020-05-19] MEDS: ACETAMINOPHEN 500 MG TAB PO PRN (12:00)
--- NOTE | 2020-05-19 15:03 | Discharge Summary ---
Date of Service May 19, 2020 Admission HPI Per Admitting Provider Patient with underlying dementia and is unable to provide clear details of the events preceding hospital arrival - history obtained mainly through discussion with ER staff and review of the chart. Daphnie Banks is an 84yo C female with history of AF on Xarelto anticoagulation, HTN/HLP/CHF and Dementia. She presents today with complaint of RUQ pain that began acutely after lunch this afternoon. She also had some nausea, no vomiting or diarrhea reported. When she arrived to the ER she was found to be afebrile, hypertensive otherwise hemodynamically stable, NAD. Laboratory workup largely unremarkable, elevated AP to 151, normal bilirubin and WBC. A RUQUS and CT Abdomen and Pelvis was obtained which revealed acute cholecystitis, possible dilatation of the CBD to 1.2cm per report on US. Also with incidental finding of acute/subacute osteophyte fracture at T11-T12 through T11. Patient complaining of some discomfort in her abdomen, otherwise no complaints. ER Course: Tylenol. Zofran. Dilaudid. Cefoxitin Principal Diagnosis Cholecystitis Discharge Exam Constitutional WD/WN, vitals as above Eyes EOM intact bilaterally; no conjunctival abnormality ENMT external ear and nose normal, oropharynx normal Neck trachea midline, no thyromegaly normal visual inspection Respiratory normal respiratory effort, lungs clear to auscultation no respiratory distress Cardiovascular RRR, no murmur, no edema Gastrointestinal (Abdomen) Inspection/Auscultation: abdomen normal to inspection; abdomen not distended Musculoskeletal no cyanosis or clubbing, extremities motor strength 5/5 Skin no rashes, warm and dry Neurologic moves all extremities and awake Psychiatric Orientation: alert, oriented to person and cooperative Discharge Data Allergies Allergy/AdvReac Type Severity Reaction Status Date / Time succinylcholine Allergy Severe PSEUDO-CHOLINESTERASE Verified 05/06/20 21:48 DEFICIENCY Consultations 05/06/20 21:10 ED Decision to Admit Stat 05/06/20 21:11 Consult General Surgery Stat 05/08/20 08:45 Consult Gastroenterology Routine 05/08/20 10:26 Consult Anesthesiology Routine Procedures Performed Operation Date: 05/08/20 07:00 Actual Procedures p Endoscopic Gastrointestinal,Endoscopic Ultrasound and Endosopic Retrograde Cholangiopancreatogram, sphincterotomy, biliary stent placement (Not Applicable) - Margarita Morgan Operation Date: 05/09/20 11:20 Actual Procedures p Laparoscopic Cholecystectomy - David Goddard, DO, FACS Ordered Studies 05/06/20 18:19 CT abd pelvis IV con only Stat US abdomen limited Urgent 05/07/20 00:05 MR MRCP Urgent 05/08/20 15:00 FL ERCP biliary ductal Routine 05/08/20 15:45 US upper EUS PACS images Routine 05/13/20 08:22 CT abd pelvis wo con Stat Hospital Course (1) Cholangitis: s/p ERCP 05/[address] Morgan [facility]. Purulence seen in CBD. Stone seen and extracted. CBD stent placed. Received IV zosyn since admission now transitioned to PO augmentin BID to complete total 2 weeks of IV/PO abx - last day of abx 05/22 Recent abnormal LFTs had resolved, bili elevated but likely secondary to resolving hematoma Lipase wnl. (2) Metabolic encephalopathy: Improving, patient oriented but with some confusion. in setting of known Parkinson's disease, dementia, prolonged hospitalization, and cholangitis/cholecystitis. hypernatremia could have contributed, now resolved cont to reinforce day/wake cycle. stopped all narcotics. (3) Hypernatremia: Resolved Resume home lasix (4) Acute blood loss anemia: Hgb stable around 8 about 5.5 gm drop since admission. had bleeding into flank on right obtained noncontrast CT abd/pelvis - extensive bleeding right flank and in RUQ on that scan. Per general surgery - no surgical intervention, continue heating pad ferrous sulfate 325mg BID. Xeralto resumed 05/15 (5) Choledocholithiasis: s/p ERCP with extraction and stent placement see above (6) Acute cholecystitis: s/p lap tim 05/09 doing well from surgical standpoint. MELISSA drain d/c on 05/11. tolerating regular diet. having bowel movements. pain controlled. Bili slightly elevated, likely secondary to resolving hematoma Continue augmentin - see above. Xeralto resumed appreciate gen surg consultation and GI consultation - both have signed off at this point (7) T11 vertebral fracture: subacute. callus formation seen on imaging. no pain - found incidentally. spoke with spine surgery - nothing to do at this time. conservative management. defer on MRI imaging unless she has symptoms/signs of neuro compromise. vit D def - replace w/ ergocalciferol x [address] abd/pelvis 05/13 saw the fracture again and it was stable. (8) Dementia: cont aricept cont namenda likely due to Parkinson's (9) Hypertension: Continue lasix (10) Hyperlipidemia: not on meds for such (11) Parkinsons: cont sinemet severe deconditioning - cont PT/OT -- needs rehab (12) Atrial fibrillation: Continue xarelto cont amiodarone (13) Chronic kidney disease, stage 3a: Cr stable Continue to monitor (14) Hypokalemia: replaced and resolved (15) Vitamin D deficiency: ergocalciferol 50,000 units weekly x 8 weeks first dose 05/11/2020 (16) Urinary retention: Unclear why - secondary to Parkinson's disease? Urine culture growing yeast Straight cathed as needed (17) DVT prophylaxis: Xarelto, SCDs Dispo: rehab - likely will have a bed Thursday Total Time Total Time Spent Total Time Spent (In Minutes): 35 Discharge Plan Discharge Items Patient Disposition: Transfer Shelter Fac Reason For Visit: ACUTE CHOLECYSTITIS Discharge Diagnosis: Gallbladder infection/inflammation Activity: Resume your previous activity Lifting: No more than 10 pounds Bathing Comment: may shower, no soaking in tubs Exercise/Sports: Wait until after follow-up appointment Non-emergency contact: Surgeon Call non-emergency contact if: you have any medication questions, your symptoms worsen, your pain is not controlled, your pain is worsening, your pain is unusual for you, you have a fever, your temperature is above 101.5, your wound has increased redness, your wound has increased drainage and your wound pain has increased Follow-up/Referrals: Edwige Mason DO [Primary Care Provider] - David Goddard DO, FACS [Physician] - (Please call to schedule follow up in clinic within 1-2 weeks) Diet: Regular Addtl Attending Provider Instructions: You were hospitalized with a gallbladder attack from gallstones. We removed the stones and your gallbladder. Please follow up with the surgeon in 1-2 weeks. You will need to continue the antibiotic (Augmentin) until 05/22/2020. Pending Studies at Discharge: No Stand-Alone Forms: My [facility] Skilled Items Patient informed of condition?: Yes DNR: Yes Discharge Level of Care: Skilled Communicable Disease: No Discharge Prognosis: Stable Lines: None Urinary Catheter: No Medications and DC Order Prescriptions: New potassium chloride 20 mEq/15 mL Liquid 10 ml PO QAM Qty: 1 RF: 0 ferrous sulfate 325 mg (65 mg iron) Tablet,Delayed Release (Dr/Ec) 325 mg PO BID Qty: 1 RF: 0 amoxicillin-pot clavulanate [Augmentin] 875-125 mg Tablet 1 tab PO BIDM Qty: 1 RF: 0 Continued carbidopa-levodopa 50-200 mg tablet extended release 1 tab PO BID 90 Days Qty: 180 RF: 1 alendronate 70 mg tablet 70 mg PO WK Qty: 12 RF: 1 furosemide 40 mg tablet 20 mg PO DAILY Qty: 45 RF: 2 amiodarone 200 mg tablet 200 mg PO QPM Qty: 90 RF: 3 memantine 10 mg tablet 10 mg PO BID Qty: 180 RF: 1 carbidopa-levodopa 25-250 mg tablet,disintegrating 1 tab PO TID PRN (Reason: Parkinson's Disease) 90 Days Qty: 270 RF: 1 carbidopa-levodopa 25-100 mg tablet 3 tab PO QID 90 Days Qty: 1080 RF: 0 trazodone 50 mg tablet 25 mg PO HS Qty: 15 RF: 2 donepezil 10 mg tablet 10 mg PO HS 90 Days Qty: 90 RF: 0 clonazepam 0.5 mg tablet,disintegrating 0.5 mg PO HS 30 Days Qty: 30 RF: 1 polyethylene glycol 3350 [Miralax] 17 gram/dose Powder 17 g PO DAILY PRN (Reason: Constipation) RF: 0 Artificial Tears (kathy/min) 83-15 % Ointment 1 applic OPB UD PRN (Reason: Dry Eye(S)) RF: 0 escitalopram oxalate 10 mg tablet 15 mg PO DAILY RF: 0 Discontinued (DME[facility] See Dose Instructions .ROUTE .MEDSUPPLY Qty: 1 RF: 0 (DME) [facility] See Dose Instructions .ROUTE .MEDSUPPLY Qty: 200 RF: 4 (DME) Bed Side Commode Misc See Rx Instructions .ROUTE .MEDSUPPLY Qty: 1 RF: 0 Xarelto 15 mg tablet 15 mg PO HS Qty: 90 RF: 1 Discharge Orders: Discharge Order (Routine); Ordered 05/19/20 Ordered By: Harsha Griffiths Admission Data Admit Date/Time: 05/06/20 23:20 Attending Provider: Harsha Griffiths Admit Provider: Johnna Cleveland Primary Care Provider: Edwige Mason Other Providers: Johnna Cleveland ; David Goddard ; Margarita Morgan ; Yeyo Winter ; [facility] ; Laisha,[facility] Other Interventions: Discharge Summary Assessment (RN) Last Done: 05/19/20 10:17 DC Date/Time DO NOT enter until pt leaves facility: 05/19/20 13:23 Coding Level of Care Code D/C Day Management >30 mins Diagnoses Cholangitis K83.09 Metabolic encephalopathy G93.41 Hypernatremia E87.0 Acute blood loss anemia D62 Choledocholithiasis K80.50 Acute cholecystitis K81.0 T11 vertebral fracture S22.089A Encounter type: initial encounter Fracture type: closed Fracture morphology: unspecified fracture morphology Dementia G20; F02.80 Dementia type: Parkinson's disease Dementia behavioral disturbance: without behavioral disturbance Hypertension I10 Hyperlipidemia E78.5 Parkinsons G20 Atrial fibrillation I48.0 Atrial fibrillation type: paroxysmal Chronic kidney disease, stage 3a N18.3 Hypokalemia E87.6 Vitamin D deficiency E55.9 Urinary retention R33.9 DVT prophylaxis Z29.9
== END 2020-05-19 13:23 | DRG 417 ==
LOC: ED 17:50 → 3N 23:20 → SUATTDRO 23:20 → 3N 23:41

== ENCOUNTER 2020-08-07 20:08 | Inpatient (IN) ==
[2020-08-07] MEDS ORDERED: SODIUM CHLORIDE 0.9% 1000ML 1,000 ML IV SCH (21:15)
[2020-08-07 21:31] LABS: Eosinophils # (auto) 0.07 K/uL (0-0.5); Eosinophils % (auto) 1.2 %; Hemoglobin 12.1 g/dL (12.0-16.0); Immature Granulocytes # (auto) 0.02 K/uL (0.00-0.02); Immature Granulocytes % (auto) 0.3 %; Lymphocytes # (auto) 1.23 K/uL (1.2-3.4); Lymphocytes % (auto) 21.1 %; Mean Corpuscular Hemoglobin 28.8 pg (25-34); Mean Corpuscular Volume 92.9 fL (80-100); Mean Platelet Volume 10.7 fL (7.4-10.4); Monocytes # (auto) 0.53 K/uL (0.11-0.59); Monocytes % (auto) 9.1 %; Neutrophils # (auto) 3.99 K/uL (1.4-6.5); Neutrophils % (auto) 68.3 %; Platelet Count 205 K/uL (130-400); RDW Coefficient of Variation 16.6 % (11.5-14.5); RDW Standard Deviation 56.4 fL (36.4-46.3); White Blood Count 5.84 K/uL (4.8-10.8)
--- NOTE | 2020-08-07 21:47 | Emergency Department Note ---
History of Present Illness General Chief complaint: Weakness Stated complaint: weakness, doctor ref Time Seen by Provider: 08/07/20 20:39 Source: patient Mode of arrival: EMS Limitations: no limitations History of Present Illness Provider complaint: Dizziness, weakness Onset (ago): day(s) 3 Severity: moderate Associated symptoms: + malaise and + weakness Treatments prior to arrival: none This is an 85-year-old female brought in from home with her daughter bedside who is her primary caregiver with complaints of increased weakness and dizziness over the last 2 to 3 days. Daughter states that due to patient's history of Parkinson's she does intermittently have bouts of weakness and bouts of confusion. She has been slowly manifesting more and more cognitive changes related to her Parkinson's disease. She states typically the patient can walk with her walker by herself, although in the last 2 days has been a full 2 person assist. Daughter was initially suspicious of possible UTI and dehydration as both of those have yielded similar symptoms previously. She states she did drop off urine to the PCP today and this was tested and was reported to her as negati ve for infection. Daughter states she has had 2 urinary tract infections in the last 6 to 8 weeks. States she had just finished a course of Bactrim for her latest infection several days ago. Daughter states since her return after being away for 2 days she has been encouraging her mother to drink more fluids. She states there were no other changes in her mother's medications and she has been taking them as instructed. No known exposure to any sick contacts or coronavirus positive individual. Patient denies any change in bowel movements. Patient denies any other cough or cold symptoms, shortness of breath, or chest pain. Patient describes the dizziness as spinning, although denies prior history of vertigo. Patient denies any accompanying headache or vision changes. Pt seen during a time of high acuity and national emergency pandemic while wearing PPE. Home Medications Home Medications Medication Instructions Recorded Confirmed Type Artificial Tears (kathy/min) 1 applic OPB UD PRN 11/01/18 07/03/20 History polyethylene glycol 3350 [Miralax] 17 g PO DAILY PRN 11/01/18 07/03/20 History alendronate 70 mg tablet 70 mg PO WK #12 tab 11/24/19 07/03/20 Rx carbidopa 25 mg-levodopa 250 mg 1 tab PO TID PRN 90 Days #270 tab 01/11/20 07/03/20 Rx disintegrating tablet potassium chloride 10 ml PO QAM #1 ml 05/19/20 07/03/20 Rx amiodarone 200 mg tablet 200 mg PO QPM #90 tab 05/28/20 07/03/20 Rx carbidopa ER 50 mg-levodopa 200 mg 1 tab PO BID 90 Days #180 tab 05/31/20 07/03/20 Rx tablet,extended release memantine 10 mg tablet 10 mg PO BID #180 tab 05/31/20 07/03/20 Rx trazodone 50 mg tablet 25 mg PO HS #15 tab 06/07/20 07/03/20 Rx cholecalciferol (vitamin D3) 1,250 See Rx Instructions PO .COMPLEX 06/22/20 07/03/20 History mcg (50,000 unit) capsule cap donepezil 10 mg tablet 10 mg PO HS 90 Days #90 tab 06/22/20 07/03/20 Rx furosemide 40 mg tablet 40 mg PO DAILY tab 06/22/20 07/03/20 History escitalopram oxalate 20 mg tablet 20 mg PO DAILY #30 tab 06/28/20 07/03/20 Rx famotidine 40 mg tablet 40 mg PO DAILY #90 tab 06/28/20 07/03/20 Rx latex gloves #24 ea 06/28/20 07/03/20 Rx rivaroxaban 15 mg tablet 15 mg PO DAILY 06/28/20 07/03/20 History carbidopa 25 mg-levodopa 100 mg 3 tab PO QID tab 07/03/20 07/03/20 History tablet lorazepam 0.5 mg tablet 0.5 mg PO DAILY PRN #14 tab 07/03/20 07/03/20 Rx clonazepam 0.5 mg disintegrating 0.5 mg PO HS 30 Days #3 tab 07/23/20 Rx tablet sulfamethoxazole 800 1 tab PO BID 5 Days #10 tab 07/31/20 Rx mg-trimethoprim 160 mg tablet Allergies Allergy/AdvReac Type Severity Reaction Status Date / Time succinylcholine Allergy Severe PSEUDO-CHOLINESTERASE Verified 06/28/20 14:56 DEFICIENCY Past Med/Surg History Medical History (Updated 08/09/20 @ 01:56 by Vernell Diamond, ) Anxiety Arthritis Atrial fibrillation Bradycardia Chronic lower back pain Constipation Dementia Gastro-esophageal reflux Hearing loss History of Clostridioides difficile colitis Hyperlipidemia Hyperparathyroidism Hypertension Macular degeneration Mitral regurgitation Neuropathy Osteoporosis Pacemaker Parkinsons Spinal stenosis of lumbar region with radiculopathy Urinary incontinence Venous insufficiency Venous stasis dermatitis Surgical History History of abdominal surgery REMOVED A TUMOR WITH A BLEEDING ULCER(BENIGN) History of cataract surgery History of knee replacement, total History of lumbar fusion Hx laparoscopic cholecystectomy (05/09/20) Laparoscopic Cholecystectomy Dr. Goddard 05/16/20 Hx of varicose vein ligation Status post repair of nerve NEUROPLASTY DECOMPRESSION MEDIAN NERVE AT CARPAL TUNNEL, LEFT-HAND Family History Mother Cancer Brain cancer Hypertension Brother Colon cancer Heart disease Colorectal cancer Father Myocardial infarction Hypertension Sister Colorectal cancer Sister Colorectal cancer Family/Other Breast cancer Daughter Thyroid cancer Denies family history of Ovarian cancer Prostate cancer Social History Smoking Status: Never smoker Second Hand Exposure: No; Hx Alcohol Use: No Hx Substance Use: No Preferred Language: Tajik Communication Ability: Impaired Visual Impairment: No Limitations Hearing Ability: Normal Multisensor Intelligence Officer Required: No Beliefs That Will Affect Care: None marital status: Current Living Situation: Family Current Living Situation Comment: Lives with Daughter at home. 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 and A total of 10 systems reviewed and were otherwise negative Physical Exam Vital Signs Vital Signs - 24 hr 08/07/20 20:12 08/07/20 21:21 08/07/20 21:25 Temperature 36.6 C Temperature Source Oral Pulse Rate 66 52 L 52 L Pulse Rate from SpO2 Sensor 52 L 51 L Respiratory Rate 20 16 19 Respiratory Effort / Characteristics Non-Labored Spontaneous Respiratory Depth Normal Blood Pressure 148/78 H 128/65 Blood Pressure Mean 101 88 Pulse Oximetry 99 98 95 Oxygen Delivery Method Room Air Sepsis New/Unexplained Change in Mental Status N/A Sepsis Action Taken by Nursing No Action Required 08/07/20 21:30 08/07/20 22:41 08/07/20 22:42 Temperature Temperature Source Pulse Rate 52 L 68 66 Pulse Rate from SpO2 Sensor 51 L 71 67 Respiratory Rate 19 16 16 Respiratory Effort / Characteristics Respiratory Depth Blood Pressure 117/59 L 158/89 H Blood Pressure Mean 88 112 Pulse Oximetry 98 100 100 Oxygen Delivery Method Sepsis New/Unexplained Change in Mental Status Sepsis Action Taken by Nursing 08/07/20 23:00 08/07/20 23:30 Temperature Temperature Source Pulse Rate 63 57 L Pulse Rate from SpO2 Sensor 61 57 L Respiratory Rate 14 17 Respiratory Effort / Characteristics Respiratory Depth Blood Pressure 158/73 H 136/65 Blood Pressure Mean 100 89 Pulse Oximetry 96 96 Oxygen Delivery Method Sepsis New/Unexplained Change in Mental Status Sepsis Action Taken by Nursing GENERAL: alert, well appearing, well nourished, no distress, non-toxic EYE EXAM: normal conjunctiva, PERRL and EOM's grossly intact, no nystagmus EARS: TMs clear bilaterally, no edema along the canals OROPHARYNX: no exudate, no erythema, lips, buccal mucosa, and tongue normal and mucous membranes are moist NECK: supple, no nuchal rigidity, no adenopathy, non-tender LUNGS: Clear to auscultation. Normal chest wall mechanics, no w/r/r HEART: no murmurs, S1 normal and S2 normal ABDOMEN: abdomen soft, non-tender, normo-active bowel sounds, no masses, no rebound or guarding. BACK: Back is symmetrical on inspection and there is no deformity, no midline tenderness, no CVA tenderness. SKIN: no rashes and no bruising UPPER EXTREMITIES: upper extremities are grossly normal. nml pulses b/l. Stiffness and cogwheeling of the joints noted. LOWER EXTREMITIES: No pitting edema. nml pulses b/l. No evidence of trauma, limited range of motion due to tremors and weakness likely from Parkinson's. NEURO EXAM: Normal sensorium, cranial nerves II-XII grossly intact, normal speech but slow to answer, no gross weakness of arms, no gross weakness of legs. Gross sensation intact. No facial droop. Tremors noted, worse with intention. Course Course 2254: Patient and daughter updated at bedside on all results. Due to JENNIFER and patient's recent symptoms, discussed with them additional inpatient evaluation and monitoring and they were in agreement. 235: Discussed with Dr. Zamora. Administered Medications Amiodarone HCl (Amiodarone 200 Mg Tab) 200 mg PO QPM DEANNE Stop: 09/07/20 20:59 Last Admin: 08/08/20 21:09 Dose: 200 mg Documented by: [id number] Carbidopa/Levodopa (Carbidopa/Levodopa 25/100mg Tab) 3 tab PO QID DEANNE Stop: 09/07/20 08:59 Last Admin: 08/08/20 21:11 Dose: 3 tab Documented by: [id number] Admin: 08/08/20 16:54 Dose: 3 tab Documented by: [id number] Admin: 08/08/20 12:19 Dose: 3 tab Documented by: [id number] Admin: 08/08/20 09:27 Dose: 3 tab Documented by: [id number] Carbidopa/Levodopa (Carbidopa/Levodopa 50/200mg Ext Rel Tab) 1 tab PO BID DEANNE Stop: 09/07/20 08:59 Last Admin: 08/08/20 21:10 Dose: 1 tab Documented by: [id number] Admin: 08/08/20 09:27 Dose: 1 tab Documented by: [id number] Clonazepam (Clonazepam 0.5 Mg Tab) 0.5 mg PO HS DEANNE Stop: 09/07/20 20:59 Last Admin: 08/08/20 21:14 Dose: 0.5 mg Documented by: [id number] Donepezil HCl (Donepezil Hcl 10 Mg Tab) 10 mg PO HS DEANNE Stop: 09/07/20 20:59 Last Admin: 08/08/20 21:09 Dose: 10 mg Documented by: [id number] Escitalopram Oxalate (Escitalopram Oxalate 20 Mg Tab) 20 mg PO DAILY DEANNE Stop: 09/07/20 08:59 Last Admin: 08/08/20 09:27 Dose: 20 mg Documented by: [id number] Famotidine (Famotidine 40 Mg Tablet) 40 mg PO DAILY DEANNE Stop: 09/07/20 08:59 Last Admin: 08/08/20 09:28 Dose: 40 mg Documented by: [id number] Sodium Chloride (Nss 1000ml) 1,000 mls @ 80 mls/hr IV .[id number] DEANNE Stop: 09/07/20 01:52 Last Admin: 08/08/20 15:45 Dose: 80 mls/hr Documented by: [id number] Infusion: 10/14/20 13:09 Dose: 0 mls/hr Documented by: [id number] Admin: 08/08/20 02:27 Dose: 80 mls/hr Documented by: [id number] Memantine (Memantine Hcl 10 Mg Tab) 10 mg PO BID DEANNE Stop: 09/07/20 01:52 Last Admin: 08/08/20 21:10 Dose: 10 mg Documented by: [id number] Admin: 08/08/20 09:28 Dose: 10 mg Documented by: [id number] Admin: 08/08/20 02:27 Dose: 10 mg Documented by: [id number] Rivaroxaban (Rivaroxaban 15 Mg Tab) 15 mg PO QDD DEANNE Stop: 09/07/20 16:29 Last Admin: 08/08/20 16:55 Dose: 15 mg Documented by: [id number] Trazodone HCl (Trazodone Hcl 50 Mg Tab) 25 mg PO HS DEANNE Stop: 09/07/20 20:59 Last Admin: 08/08/20 21:10 Dose: 25 mg Documented by: [id number] Discontinued Medications Carbidopa/Levodopa (Carbidopa/Levodopa 50/200mg Ext Rel Tab) 1 tab PO NOW STA Stop: 08/07/20 22:48 Last Admin: 08/07/20 23:33 Dose: 1 tab Documented by: [id number] Sodium Chloride (Nss 1000ml) 1,000 mls @ 125 mls/hr IV .Q8H DEANNE Stop: 09/06/20 21:14 Last Infusion: 08/08/20 02:13 Dose: 0 mls/hr Documented by: [id number] Admin: 08/07/20 21:31 Dose: 125 mls/hr Documented by: [id number] Miscellaneous (Patient's Height And/Or Weight Needed) 1 ea N/A Q2H DEANNE Stop: 09/07/20 02:14 Last Admin: 08/08/20 03:12 Dose: Not Given Documented by: [id number] Admin: 08/08/20 03:11 Dose: 1 ea Documented by: [id number] Morphine Sulfate (Morphine Sulfate 2 Mg/Ml Carp) 2 mg IV NOW STA Stop: 08/08/20 19:23 Last Admin: 08/08/20 19:30 Dose: 2 mg Documented by: [id number] Neomycin/Polymyxin/Bacitracin (Neomycin/Polymyx/Bacitr Oint 15 Gm Tube) 1 appln EXT ONE ONE Stop: 08/08/20 19:19 Last Admin: 08/08/20 19:45 Dose: 1 appln Documented by: [id number] Medical Decision Making Differential Diagnosis Differential Diagnosis includes but is not limited to dehydration, stroke, anemia, hypoglycemia, hyponatremia, hypernatremia, urinary tract infection, pneumonia, bronchitis, sepsis, gastroenteritis, additional abdominal pathology, metabolic abnormalities and infections. Medical Records Attestation: I reviewed the patient's medical records. Home Medications Current Medication List: was personally reviewed by pa Laboratory Data Attestation: I reviewed the patient's lab results. Result diagrams: 08/07/20 21:21 08/08/20 08:08 Lab Results 08/07/20 08/07/20 08/07/20 Range/Units 21:21 21:21 21:21 WBC 5.84 (4.8-10.8) K/uL RBC 4.20 (4.2-5.4) M/uL Hgb 12.1 (12.0-16.0) g/dL Hct 39.0 (37-47) % MCV 92.9 (80-100) fL MCH 28.8 (25-34) pg MCHC 31.0 L (32-36) g/dL RDW Std Deviation 56.4 H (36.4-46.3) fL RDW Coeff of Elizabeth 16.6 H (11.5-14.5) % Plt Count 205 (130-400) K/uL MPV 10.7 H (7.4-10.4) fL Immature Gran % (Auto) 0.3 % Neut % (Auto) 68.3 % Lymph % (Auto) 21.1 % Dent % (Auto) 9.1 % Eos % (Auto) 1.2 % Baso % (Auto) 0.0 % Neut # (Auto) 3.99 (1.4-6.5) K/uL Lymph # (Auto) 1.23 (1.2-3.4) K/uL Dent # (Auto) 0.53 (0.11-0.59) K/uL Eos # (Auto) 0.07 (0-0.5) K/uL Baso # (Auto) 0.00 (0-0.2) K/uL Immature Gran # (Auto) 0.02 (0.00-0.02) K/uL PT 11.2 (9.0-12.0) Seconds INR 1.1 (0.9-1.1) Sodium 137 (136-145) mmol/L Potassium 4.4 (3.5-5.1) mmol/L Chloride 103 (98-107) mmol/L Carbon Dioxide 30 (21-32) mmol/L Anion Gap 4.0 (3-11) BUN 29 H (7-18) mg/dl Creatinine 1.71 H (0.6-1.2) mg/dl Est Cr Clr Drug Dosing Not Reportable Est GFR ( Amer) 31.3 Est GFR (Non-Af Amer) 27.0 BUN/Creatinine Ratio 17.0 (10-20) Glucose 107 H (70-99) mg/dl Calcium 9.8 (8.5-10.1) mg/dl Magnesium 2.3 (1.8-2.4) mg/dl Total Bilirubin 0.8 (0.2-1) mg/dl AST 18 (15-37) U/L ALT 9 L (12-78) U/L Alkaline Phosphatase 205 H (45-117) U/L Troponin I < 0.015 (0-0.045) ng/ml NT-Pro-B Natriuret Pep 2095 H (0-1800) pg/ml Total Protein 6.9 (6.4-8.2) gm/dl Albumin 3.3 L (3.4-5.0) gm/dl Globulin 3.6 (2.5-4.0) gm/dl Albumin/Globulin Ratio 0.9 (0.9-2) Lipase 150 (73-393) U/L TSH 1.500 (0.300-4.500) uIu/ml Imaging Data My Impression: X-ray: I interpreted the following studies. Chest: A single view study of the chest was reviewed and was negative for cardiomegaly, focal infiltrate, effusion, pulmonary edema, or wide mediastinum. Radiologist's Impression: CT head: No acute intracranial hemorrhage, edema or mass. Mild atrophy. Mild to moderate periventricular white matter chronic small vessel ischemic changes. No extra-axial fluid collection. Intracranial atherosclerosis. No calvarial fracture. Radiologist: Sergei Puente MD ECG Data Attestation: I personally reviewed and interpreted this ECG as follows: Indication: + weakness Rate (beats per minute): 54 Rhythm: + sinus bradycardia ECG Intervals/blocks: + IVCD and + Prolonged QT ECG [place]: + Normal ECG ST segments: + Nonspecific ST abnormalities Additional Comments: Baseline artifact noted likely secondary to tremors MDM Narrative This is an elderly female brought in by family due to concern for increased weakness, dizziness, and slight confusion over the last 2 to 3 days. While patient has had similar episodes prior related to her Parkinson's disease, daughter describes them as milder. Her urine was checked by her PCP as an out patient for infection and was negative. Daughter is been trying to maintain the patient's hydration, and states she has been taking her medication appropriately. Labs are drawn and sent, patient sent for CT imaging of her head as well as a chest x-ray. These were reviewed and imaging was reassuring. Patient's labs revealed acute kidney injury with a new creatinine of 1.7. Patient's UA unremarkable here. I did review a prior CT from 3 months ago, and there was no evidence of nephrolithiasis. Given lack of abdominal pain or back pain I have a low suspicion for obstructive uropathy at this time. No evidence of bacteremia/sepsis. Likely patient's recent use of Bactrim for a urinary trac t infection possibly combined with dehydration led to her acute kidney injury. Patient was started on IV fluids and will be monitored. Discussed with her careful monitoring and rehydration as a precaution given her symptoms and increased risk of complications due to other past medical history. Patient and daughter verbalized understanding of all results were in agreement with plan. An order was placed for continuous cardiac monitoring. The monitor shows a rate of 60 with _normal sinus rhythm. Impression & Plan JENNIFER (acute kidney injury), Parkinsons, Acute dehydration, Generalized weakness, Dizziness Discharge Plan Visit Data Chief Complaint: Weakness Stated Complaint: weakness, doctor ref ED Provider: Vernell Diamond Discharge Problem: JENNIFER (acute kidney injury), Parkinsons, Acute dehydration, Generalized weakness, Dizziness Patient Disposition: Admitted As Inpatient Discharge Instructions Interventions: ED Discharge Assessment Last Done: 08/08/20 01:24
[2020-08-07 21:48] LABS: Alanine Aminotransferase 9 U/L (12-78); Albumin Level 3.3 gm/dl (3.4-5.0); Aspartate Aminotransferase 18 U/L (15-37); Blood Urea Nitrogen 29 mg/dl (7-18); Calcium 9.8 mg/dl (8.5-10.1); Carbon Dioxide 30 mmol/L (21-32); Chloride 103 mmol/L (98-107); Est GFR (African American) 31.3; Glucose 107 mg/dl (70-99); Lipase 150 U/L (73-393); Magnesium 2.3 mg/dl (1.8-2.4); Potassium 4.4 mmol/L (3.5-5.1); Sodium 137 mmol/L (136-145)
[2020-08-07 21:51] LABS: INR 1.1 (0.9-1.1); Prothrombin Time 11.2 Seconds (9.0-12.0)
[2020-08-07 21:59] LABS: Albumin Globulin Ratio 0.9 (0.9-2); Alkaline Phosphatase 205 U/L (45-117); Bilirubin,Total 0.8 mg/dl (0.2-1); Globulin 3.6 gm/dl (2.5-4.0); NT Pro B Type Natriuretic Pept 2095 pg/ml (0-1800); Total Protein 6.9 gm/dl (6.4-8.2); Troponin I < 0.015 ng/ml (0-0.045)
[2020-08-07] MEDS ORDERED: CARBIDOPA/LEVODOPA 50/200MG EXT REL TAB PO STA (22:47)
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
[2020-08-08] MEDS ORDERED: ARTIFICIAL TEARS OP OINT 3.5 GM TUBE OPB PRN (01:53)
[2020-08-08] MEDS ORDERED: ALUMINUM/MAGNESIUM SUSP 30 ML UDC PO PRN (01:53)
[2020-08-08] MEDS ORDERED: ONDANSETRON INJ 2 MG/ML 2 ML VIAL IV PRN (01:53)
[2020-08-08] MEDS ORDERED: MAGNESIUM HYDROXIDE SUSP 30 ML UDC PO PRN (01:53)
[2020-08-08] MEDS ORDERED: POLYETHYLENE (MIRALAX) 17 GM PACK PO PRN (01:53)
[2020-08-08] MEDS: MEMANTINE HCL 10 MG TAB PO SCH ×3 (02:27→21:10)
[2020-08-08] MEDS: SODIUM CHLORIDE 0.9% 1000ML 1,000 ML IV SCH ×2 (02:27→15:45)
[2020-08-08] MEDS: PATIENT'S HEIGHT AND/OR WEIGHT NEEDED SCH ×2 (03:11→03:12)
--- NOTE | 2020-08-08 07:26 | CT Scan Report ---
HEAD CT NONCONTRAST CT DOSE: 537.48 mGy.cm HISTORY: dizzy TECHNIQUE: Multiaxial CT images of the head were performed without the use of intravenous contrast. A utomated exposure control was utilized for this study. A dose lowering technique was utilized adheri ng to the principles of ALARA. Comparison: Head CT 01/21/2019. Findings: The paranasal sinuses and mastoid air cells are clear. The calvarium and skull base are int act. There is no mass, hematoma, midline shift, acute infarct. White matter hypodensity is nonspecifi c but suggestive of microvascular ischemic change. The ventricles and sulci demonstrate mild age-rela waylon involutional changes. Impression: No significant change compared to the prior study. No acute intracranial abnormality. ACT 112: Negative or not required by law. Electronically signed by: Mat Hall M.D. 08/08/2020 7:25 AM
--- NOTE | 2020-08-08 08:59 | XRay Report ---
SINGLE VIEW CHEST CLINICAL HISTORY: Cough FINDINGS: An AP, portable, upright chest radiograph is compared to study dated 05/17/2020. The examina tion is degraded by portable technique and patient rotation. The heart is mildly enlarged noting at herosclerotic calcification of the thoracic aorta. The pulmonary vasculature is noncongested. The rody ral annulus is densely calcified. Chronic interstitial thickening is similar to previous. There are s cattered calcified granulomas. Scarring/atelectasis is noted at the lung bases. No airspace consolida tion or large pleural effusion is identified. No pneumothorax is seen. The skeletal structures are os teopenic. The bony thorax is grossly intact. Advanced degenerative change is noted in the shoulders a nd thoracic spine. IMPRESSION: Cardiomegaly with no acute cardiopulmonary abnormality. ACT 112: Negative or not required by law. Electronically signed by: Jameel Martino M.D. 08/08/2020 8:57 AM
[2020-08-08] MEDS: ESCITALOPRAM OXALATE 20 MG TAB PO SCH (09:27)
[2020-08-08] MEDS: CARBIDOPA/LEVODOPA 25/100MG TAB PO SCH ×4 (09:27→21:11)
[2020-08-08] MEDS: CARBIDOPA/LEVODOPA 50/200MG EXT REL TAB PO SCH ×2 (09:27→21:10)
[2020-08-08] MEDS: FAMOTIDINE 40 MG TABLET PO SCH (09:28)
[2020-08-08 09:49] LABS: BUN Creatinine Ratio 19.4 (10-20); Calcium 9.3 mg/dl (8.5-10.1); Creatinine Clr Calc Pharmacy 29.8 ml/min; Est GFR (African American) 40.2; Est GFR (Non-African American) 34.7; Potassium 4.4 mmol/L (3.5-5.1)
[2020-08-08 11:09] LABS: Appearance Urine Turbid (Clear); Bacteria Urine Automated Negative (Negative); Bilirubin Urine Negative (Negative); Blood Urine 2+ (Negative); Color Urine Yellow; Epithelial Cell Urine Auto >30 /lpf (0-5); Glucose Urine UA Negative (Negative); Ketones Urine Trace (Negative); Leukocyte Esterase Urine 1+ (Negative); Nitrite Urine Negative (Negative); Protein Urine Negative (Negative); Specific Gravity Urine 1.017 (1.000-1.030); Urobilinogen Urine Negative (Negative)
[2020-08-08 11:27] LABS: Calcium Oxalate Crystals Urine Present (None Prsent)
[2020-08-08 11:29] LABS: RBC Urine Automated 0-4 /hpf (0-4)
--- NOTE | 2020-08-08 13:12 | Electrocardiogram Report ---
Test Reason : Blood Pressure : / mmHG Vent. Rate : 054 BPM Atrial Rate : 054 BPM P-R Int : 152 ms QRS Dur : 120 ms QT Int : 524 ms P-R-T Axes : 076 -14 033 degrees QTc Int : 496 ms Sinus bradycardia with sinus arrhythmia Septal infarct (cited on or before 07-AUG-2020) Non-specific intra-ventricular conduction delay Abnormal ECG When compared with ECG of 06-MAY-2020 18:27, No significant change was found Confirmed by Delano Hernández ([id number]) on 08/08/2020 1:12:35 PM Referred By: Edwige Mason Confirmed By:Delano Hernández
[2020-08-08] MEDS: RIVAROXABAN 15 MG TAB PO SCH ×2 (16:53→16:55)
[2020-08-08] MEDS ORDERED: NEOMYCIN/POLYMYX/BACITR OINT 15 GM TUBE EXT ONE (19:18)
[2020-08-08] MEDS ORDERED: MoRPHine SULFATE 2 MG/ML CARP IV STA (19:22)
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
[2020-08-08] MEDS: AMIODARONE 200 MG TAB PO SCH (21:09)
[2020-08-08] MEDS: DONEPEZIL HCL 10 MG TAB PO SCH (21:09)
[2020-08-08] MEDS: traZODone HCL 50 MG TAB PO SCH (21:10)
[2020-08-08] MEDS: clonazePAM 0.5 MG TAB PO SCH (21:14)
[2020-08-09] MEDS: SODIUM CHLORIDE 0.9% 1000ML 1,000 ML IV SCH ×2 (03:52→16:17)
[2020-08-09] MEDS: FAMOTIDINE 40 MG TABLET PO SCH (08:44)
[2020-08-09] MEDS: MEMANTINE HCL 10 MG TAB PO SCH ×2 (08:44→20:33)
[2020-08-09] MEDS: CARBIDOPA/LEVODOPA 50/200MG EXT REL TAB PO SCH ×2 (08:44→20:33)
[2020-08-09] MEDS: ESCITALOPRAM OXALATE 20 MG TAB PO SCH (08:44)
[2020-08-09] MEDS: CARBIDOPA/LEVODOPA 25/100MG TAB PO SCH ×4 (08:44→20:34)
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
[2020-08-09] MEDS: BACITRACIN OINT 15 GM TUBE EXT SCH (17:04)
[2020-08-09] MEDS: RIVAROXABAN 15 MG TAB PO SCH (17:04)
[2020-08-09] MEDS: AMIODARONE 200 MG TAB PO SCH (20:32)
[2020-08-09] MEDS: DONEPEZIL HCL 10 MG TAB PO SCH (20:32)
[2020-08-09] MEDS: traZODone HCL 50 MG TAB PO SCH (20:33)
[2020-08-09] MEDS: clonazePAM 0.5 MG TAB PO SCH (20:36)
[2020-08-10] MEDS: SODIUM CHLORIDE 0.9% 1000ML 1,000 ML IV SCH (04:53)
[2020-08-10 06:21] LABS: Eosinophils # (auto) 0.11 K/uL (0-0.5); Eosinophils % (auto) 2.2 %; Hemoglobin 10.9 g/dL (12.0-16.0); Immature Granulocytes # (auto) 0.01 K/uL (0.00-0.02); Immature Granulocytes % (auto) 0.2 %; Lymphocytes # (auto) 1.21 K/uL (1.2-3.4); Lymphocytes % (auto) 23.7 %; Mean Corpuscular Hemoglobin 28.8 pg (25-34); Mean Corpuscular Hgb Conc 30.3 g/dL (32-36); Mean Platelet Volume 10.1 fL (7.4-10.4); Monocytes # (auto) 0.44 K/uL (0.11-0.59); Monocytes % (auto) 8.6 %; Neutrophils # (auto) 3.34 K/uL (1.4-6.5); Neutrophils % (auto) 65.3 %; Platelet Count 184 K/uL (130-400); RDW Coefficient of Variation 16.6 % (11.5-14.5); RDW Standard Deviation 57.3 fL (36.4-46.3); Red Blood Count 3.79 M/uL (4.2-5.4); White Blood Count 5.11 K/uL (4.8-10.8)
[2020-08-10 06:58] LABS: BUN Creatinine Ratio 19.8 (10-20); Creatinine Clr Calc Pharmacy 47.6 ml/min; Est GFR (African American) 70.9; Est GFR (Non-African American) 61.2; Potassium 4.2 mmol/L (3.5-5.1)
[2020-08-10] MEDS: ACETAMINOPHEN 325 MG TAB PO PRN (07:35)
[2020-08-10] MEDS: CARBIDOPA/LEVODOPA 50/200MG EXT REL TAB PO SCH ×2 (08:48→20:08)
[2020-08-10] MEDS: MEMANTINE HCL 10 MG TAB PO SCH ×2 (08:48→20:08)
[2020-08-10] MEDS: ESCITALOPRAM OXALATE 20 MG TAB PO SCH (08:49)
[2020-08-10] MEDS: FAMOTIDINE 40 MG TABLET PO SCH (08:49)
[2020-08-10] MEDS: CARBIDOPA/LEVODOPA 25/100MG TAB PO SCH ×4 (08:49→20:08)
[2020-08-10] MEDS: BACITRACIN OINT 15 GM TUBE EXT SCH (10:03)
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
[2020-08-10] MEDS: RIVAROXABAN 15 MG TAB PO SCH (17:26)
[2020-08-10] MEDS: AMIODARONE 200 MG TAB PO SCH (20:07)
[2020-08-10] MEDS: clonazePAM 0.5 MG TAB PO SCH (20:07)
[2020-08-10] MEDS: traZODone HCL 50 MG TAB PO SCH (20:08)
[2020-08-10] MEDS: DONEPEZIL HCL 10 MG TAB PO SCH (20:08)
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
[2020-08-11] MEDS ORDERED: SODIUM CHLORIDE 0.9% 1000ML 250 ML IV ONE (06:17)
[2020-08-11] MEDS: BACITRACIN OINT 15 GM TUBE EXT SCH (06:21)
[2020-08-11 07:24] LABS: Hemoglobin 11.7 g/dL (12.0-16.0); Mean Corpuscular Hemoglobin 29.2 pg (25-34); Mean Corpuscular Hgb Conc 30.8 g/dL (32-36); Mean Corpuscular Volume 94.8 fL (80-100); Mean Platelet Volume 10.7 fL (7.4-10.4); Platelet Count 196 K/uL (130-400); RDW Coefficient of Variation 16.6 % (11.5-14.5); RDW Standard Deviation 57.1 fL (36.4-46.3); Red Blood Count 4.01 M/uL (4.2-5.4)
[2020-08-11 08:06] LABS: BUN Creatinine Ratio 14.5 (10-20); Creatinine Clr Calc Pharmacy 42.7 ml/min; Est GFR (African American) 62.2; Est GFR (Non-African American) 53.6
[2020-08-11] MEDS: CARBIDOPA/LEVODOPA 25/100MG TAB PO SCH ×4 (08:53→20:47)
[2020-08-11] MEDS: CARBIDOPA/LEVODOPA 50/200MG EXT REL TAB PO SCH ×2 (08:53→20:47)
[2020-08-11] MEDS: FAMOTIDINE 40 MG TABLET PO SCH (08:53)
[2020-08-11] MEDS: ESCITALOPRAM OXALATE 20 MG TAB PO SCH (08:53)
[2020-08-11] MEDS: MEMANTINE HCL 10 MG TAB PO SCH ×2 (08:54→20:45)
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
[2020-08-11] MEDS: RIVAROXABAN 15 MG TAB PO SCH (15:24)
[2020-08-11] MEDS: DONEPEZIL HCL 10 MG TAB PO SCH (20:44)
[2020-08-11] MEDS: AMIODARONE 200 MG TAB PO SCH (20:44)
[2020-08-11] MEDS: traZODone HCL 50 MG TAB PO SCH (20:46)
[2020-08-11] MEDS: clonazePAM 0.5 MG TAB PO SCH (20:49)
[2020-08-11] MEDS: ACETAMINOPHEN 325 MG TAB PO PRN (20:52)
[2020-08-12] MEDS: CARBIDOPA/LEVODOPA 25/100MG TAB PO SCH ×4 (08:40→20:29)
[2020-08-12] MEDS: CARBIDOPA/LEVODOPA 50/200MG EXT REL TAB PO SCH ×2 (08:40→20:28)
[2020-08-12] MEDS: MEMANTINE HCL 10 MG TAB PO SCH ×2 (08:41→20:28)
[2020-08-12] MEDS: FAMOTIDINE 40 MG TABLET PO SCH (08:41)
[2020-08-12] MEDS: ESCITALOPRAM OXALATE 20 MG TAB PO SCH (08:41)
[2020-08-12] MEDS: BACITRACIN OINT 15 GM TUBE EXT SCH (08:48)
[2020-08-12] MEDS: RIVAROXABAN 15 MG TAB PO SCH (15:35)
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
[2020-08-12] MEDS: ACETAMINOPHEN 325 MG TAB PO PRN (19:07)
[2020-08-12] MEDS: DONEPEZIL HCL 10 MG TAB PO SCH (20:26)
[2020-08-12] MEDS: AMIODARONE 200 MG TAB PO SCH (20:26)
[2020-08-12] MEDS: traZODone HCL 50 MG TAB PO SCH (20:28)
[2020-08-12] MEDS: clonazePAM 0.5 MG TAB PO SCH (20:30)
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
[2020-08-13 10:14] LABS: Hematocrit (blood only) 38.3 % (37-47); Hemoglobin 11.8 g/dL (12.0-16.0); Mean Corpuscular Hgb Conc 30.8 g/dL (32-36); Mean Corpuscular Volume 94.1 fL (80-100); Mean Platelet Volume 10.1 fL (7.4-10.4); Platelet Count 192 K/uL (130-400); RDW Coefficient of Variation 16.4 % (11.5-14.5); RDW Standard Deviation 56.3 fL (36.4-46.3); Red Blood Count 4.07 M/uL (4.2-5.4); White Blood Count 6.41 K/uL (4.8-10.8)
[2020-08-13] MEDS: BACITRACIN OINT 15 GM TUBE EXT SCH (10:31)
[2020-08-13] MEDS: CARBIDOPA/LEVODOPA 50/200MG EXT REL TAB PO SCH ×2 (10:32→20:27)
[2020-08-13] MEDS: ESCITALOPRAM OXALATE 20 MG TAB PO SCH (10:32)
[2020-08-13] MEDS: FAMOTIDINE 40 MG TABLET PO SCH (10:33)
[2020-08-13] MEDS: MEMANTINE HCL 10 MG TAB PO SCH ×2 (10:33→20:28)
[2020-08-13] MEDS: CARBIDOPA/LEVODOPA 25/100MG TAB PO SCH ×4 (10:34→20:27)
[2020-08-13] MEDS: FUROSEMIDE 40 MG TAB PO SCH (10:35)
[2020-08-13 10:40] LABS: BUN Creatinine Ratio 15.6 (10-20); Calcium 9.1 mg/dl (8.5-10.1); Creatinine Clr Calc Pharmacy 47.6 ml/min; Est GFR (African American) 70.9; Est GFR (Non-African American) 61.2; Potassium 4.3 mmol/L (3.5-5.1)
--- NOTE | 2020-08-13 11:31 | XRay Report ---
XR chest 2V PA/lateral CLINICAL HISTORY: Dizziness, shortness of breath COMPARISON STUDY: 08/07/2020 FINDINGS: The heart is enlarged. There are small bilateral pleural effusions right greater than left. There are right basilar airspace opacities, likely atelectatic although an infectious/inflammatory p rocesses could appear similar. The upper lung zones appear clear.[ IMPRESSION: 1. Small bilateral pleural effusions right greater than left 2. Right basilar airspace opacities, likely atelectatic although an infectious/inflammatory process c ould appear similar ACT 112: Negative or not required by law. Electronically signed by: Norris Jasso M.D. 08/13/2020 11:29 AM
--- NOTE | 2020-08-13 13:00 | Electrocardiogram Report ---
Test Reason : Blood Pressure : / mmHG Vent. Rate : 051 BPM Atrial Rate : 051 BPM P-R Int : 134 ms QRS Dur : 114 ms QT Int : 514 ms P-R-T Axes : 070 -10 023 degrees QTc Int : 473 ms Sinus bradycardia Minimal voltage criteria for LVH, may be normal variant Minor Non-specific intra-ventricular conduction delay Septal infarct (cited on or before 07-AUG-2020) , age undetermined Abnormal ECG When compared with ECG of 07-AUG-2020 21:19, No significant change was found Confirmed by Terrance Marc ([id number]) on 08/13/2020 1:00:31 PM Referred By: Edwige Mason Confirmed By:Terrance Marc
[2020-08-13] MEDS: RIVAROXABAN 15 MG TAB PO SCH (17:12)
[2020-08-13] MEDS: POLYETHYLENE (MIRALAX) 17 GM PACK PO SCH (17:19)
[2020-08-13] MEDS: traZODone HCL 50 MG TAB PO SCH (20:27)
[2020-08-13] MEDS: DONEPEZIL HCL 10 MG TAB PO SCH (20:27)
[2020-08-13] MEDS: AMIODARONE 200 MG TAB PO SCH (20:28)
[2020-08-13] MEDS: clonazePAM 0.5 MG TAB PO SCH (20:28)
[2020-08-13] MEDS: ACETAMINOPHEN 325 MG TAB PO PRN (20:30)
[2020-08-14 03:10] LABS: BUN Creatinine Ratio 15.5 (10-20); Calcium 8.9 mg/dl (8.5-10.1); Creatinine Clr Calc Pharmacy 41.4 ml/min; Est GFR (African American) 59.9; Est GFR (Non-African American) 51.7; Potassium 3.9 mmol/L (3.5-5.1)
[2020-08-14] MEDS: CARBIDOPA/LEVODOPA 25/100MG TAB PO SCH ×4 (09:46→20:16)
[2020-08-14] MEDS: POLYETHYLENE (MIRALAX) 17 GM PACK PO SCH (09:46)
[2020-08-14] MEDS: ESCITALOPRAM OXALATE 20 MG TAB PO SCH (09:47)
[2020-08-14] MEDS: MEMANTINE HCL 10 MG TAB PO SCH ×2 (09:48→20:13)
[2020-08-14] MEDS: FUROSEMIDE 40 MG TAB PO SCH (09:48)
[2020-08-14] MEDS: FAMOTIDINE 40 MG TABLET PO SCH (09:48)
[2020-08-14] MEDS: DOCUSATE SODIUM/SENNA 50/8.6MG TAB PO SCH (09:56)
[2020-08-14] MEDS: CARBIDOPA/LEVODOPA 50/200MG EXT REL TAB PO SCH ×2 (10:29→20:16)
[2020-08-14] MEDS: BACITRACIN OINT 15 GM TUBE EXT SCH (13:54)
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
[2020-08-14] MEDS ORDERED: MAGNESIUM CITRATE 296 ML/BTL PO STA (16:34)
[2020-08-14] MEDS: RIVAROXABAN 15 MG TAB PO SCH (17:05)
[2020-08-14] MEDS: traZODone HCL 50 MG TAB PO SCH (20:12)
[2020-08-14] MEDS: DONEPEZIL HCL 10 MG TAB PO SCH (20:12)
[2020-08-14] MEDS: AMIODARONE 200 MG TAB PO SCH (20:12)
[2020-08-14] MEDS: clonazePAM 0.5 MG TAB PO SCH (20:17)
[2020-08-15] MEDS: CARBIDOPA/LEVODOPA 25/100MG TAB PO SCH (08:07)
[2020-08-15] MEDS: FUROSEMIDE 40 MG TAB PO SCH (08:07)
[2020-08-15] MEDS: FAMOTIDINE 40 MG TABLET PO SCH (08:07)
[2020-08-15] MEDS: ESCITALOPRAM OXALATE 20 MG TAB PO SCH (08:07)
[2020-08-15] MEDS: MEMANTINE HCL 10 MG TAB PO SCH (08:08)
[2020-08-15] MEDS: CARBIDOPA/LEVODOPA 50/200MG EXT REL TAB PO SCH (08:08)
[2020-08-15] MEDS: POLYETHYLENE (MIRALAX) 17 GM PACK PO SCH (08:08)
[2020-08-15] MEDS: DOCUSATE SODIUM/SENNA 50/8.6MG TAB PO SCH (08:09)
[2020-08-15] MEDS: BACITRACIN OINT 15 GM TUBE EXT SCH (08:09)
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
[2020-08-15 08:53] LABS: BUN Creatinine Ratio 21.4 (10-20); Calcium 9.6 mg/dl (8.5-10.1); Creatinine Clr Calc Pharmacy 44.9 ml/min; Est GFR (African American) 67.1; Est GFR (Non-African American) 57.9; Potassium 4.1 mmol/L (3.5-5.1)
[2020-08-15 09:03] LABS: Thyroid Stimulating Hormone 0.909 uIu/ml (0.300-4.500)
== END 2020-08-15 10:30 | disposition home health service (06) | DRG 682 ==
LOC: ED 20:08 → SUATTDRO 08-08 00:39 → 3N 08-08 00:39

== ENCOUNTER 2020-11-04 14:08 | Inpatient (IN) ==
[2020-11-04] MEDS ORDERED: ACETAMINOPHEN 1,000 MG/100 ML VIAL IV STA (15:06)
[2020-11-04 15:15] LABS: Eosinophils # (auto) 0.05 K/uL (0-0.5); Eosinophils % (auto) 0.6 %; Hematocrit (blood only) 34.1 % (37-47); Hemoglobin 10.8 g/dL (12.0-16.0); Immature Granulocytes # (auto) 0.02 K/uL (0.00-0.02); Immature Granulocytes % (auto) 0.2 %; Lymphocytes # (auto) 0.98 K/uL (1.2-3.4); Lymphocytes % (auto) 12.2 %; Mean Corpuscular Hemoglobin 30.7 pg (25-34); Mean Corpuscular Hgb Conc 31.7 g/dL (32-36); Mean Corpuscular Volume 96.9 fL (80-100); Monocytes # (auto) 0.64 K/uL (0.11-0.59); Neutrophils # (auto) 6.35 K/uL (1.4-6.5); Platelet Count 194 K/uL (130-400); RDW Standard Deviation 56.6 fL (36.4-46.3); Red Blood Count 3.52 M/uL (4.2-5.4); White Blood Count 8.04 K/uL (4.8-10.8)
[2020-11-04] MEDS ORDERED: SODIUM CHLORIDE 0.9% 1000ML 1,000 ML IV SCH (15:15)
[2020-11-04 15:25] LABS: Partial Thromboplastin Ratio 0.9; Partial Thromboplastin Time 26.2 Seconds (21.0-31.0); Prothrombin Time 10.3 Seconds (9.0-12.0)
[2020-11-04 15:26] LABS: Alanine Aminotransferase 22 U/L (12-78); Albumin Level 2.9 gm/dl (3.4-5.0); Aspartate Aminotransferase 204 U/L (15-37); BUN Creatinine Ratio 43.4 (10-20); Bilirubin Direct 0.4 mg/dl (0-0.2); Blood Urea Nitrogen 53 mg/dl (7-18); Calcium 9.4 mg/dl (8.5-10.1); Carbon Dioxide 27 mmol/L (21-32); Chloride 105 mmol/L (98-107); Est GFR (African American) 47.1; Est GFR (Non-African American) 40.6; Glucose 97 mg/dl (70-99); Lipase 159 U/L (73-393); Magnesium 2.4 mg/dl (1.8-2.4); Potassium 4.5 mmol/L (3.5-5.1); Sodium 138 mmol/L (136-145)
[2020-11-04 15:56] LABS: Albumin Globulin Ratio 0.8 (0.9-2); Alkaline Phosphatase 124 U/L (45-117); Bilirubin,Total 1.7 mg/dl (0.2-1); Creatine Kinase 3989 U/L (26-192); Globulin 3.6 gm/dl (2.5-4.0); Total Protein 6.5 gm/dl (6.4-8.2); Troponin I 0.052 ng/ml (0-0.045)
--- NOTE | 2020-11-04 15:59 | XRay Report ---
XR chest 1V portable CLINICAL HISTORY: Atypical chest pain COMPARISON STUDY: 08/13/2020 FINDINGS: The patient is mildly rotated. The cardiac and mediastinal contours remain stable. There is no failure. There is no focal pulmonary consolidation. There are no pleural effusions.[Arthritic darcy nges are present within the shoulders. No pneumothorax is visualized. IMPRESSION: No active disease in the chest. ACT 112: Negative or not required by law. Electronically signed by: Norris Jasso M.D. 11/04/2020 3:58 PM
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
[2020-11-04 16:41] LABS: Appearance Urine Cloudy (Clear); Bacteria Urine Automated 1+ (Negative); Bilirubin Urine Negative (Negative); Blood Urine Negative (Negative); Color Urine Yellow; Epithelial Cell Urine Auto >30 /lpf (0-5); Glucose Urine UA Negative (Negative); Ketones Urine Negative (Negative); Leukocyte Esterase Urine 3+ (Negative); Nitrite Urine Negative (Negative); RBC Urine Automated 0-4 /hpf (0-4); Specific Gravity Urine 1.013 (1.000-1.030); Urobilinogen Urine Negative (Negative); pH Urine 8.5 (4.5-7.5)
[2020-11-04 16:52] LABS: Protein Urine Trace (Negative)
--- NOTE | 2020-11-04 16:53 | Emergency Department Note ---
Impression & Plan Rhabdomyolysis, Dementia, Elevated troponin level, Renal insufficiency, Generalized muscle weakness ED Provider Note NAME: KEISHA CARDENAS AGE: 85 SEX: F ARRIVES VIA: Ambulance INFORMANT: Patient, ED PROVIDER(S): Ramin Kirkpatrick MD CHIEF COMPLAINT: Weakness, recurrent falls. PLAN: Disposition: Admit. MEDICAL DECISION MAKING: The patient is a pleasant 85-year-old woman with a past medical history of dementia, Parkinson disease, CKD, CHF, atrial fibrillation, hypertension, hyperlipidemia who presents emergency department from home where she lives with her daughter her and her elderly for worsening generalized weakness with recurrent falls where now she is unable to ambulate even with multiple person assist in the setting of having a functional baseline of 1 person assist as she ambulates with her walker. Of note, the patient's daughter reports darker and foul-smelling urine. They report having a negative knee x- ray recently after a fall where the patient complained of knee pain. Otherwise the patient's daughter denies any fevers, chills, cough, congestion, shortness of breath, nausea, vomiting, diarrhea. The patient's daughter reports that the patient's was admitted to [facility] for COVID-19 but relates that he has been considered cleared/noninfectious for several weeks now and no one in the family has had COVID-19 symptoms otherwise. On arrival the patient is fatigued appearing but no acute distress, afebrile with stable vital signs. She is alert and oriented to self and place but with mild confusion to situation. She appears clinically dry. EKG without overt acute ischemia and is similar to prior. Chest x-ray negative for acute cardiopulmonary process. Plain films of bilateral shoulders negative for acute fracture or dislocation though with advanced arthritis which is consistent with limited range of motion of bilateral shoulders which the patient reports is her baseline. WBC and platelets within normal limits. H/H 10.8/34.1 similar to prior range of values. Chemistry without metabolic acidosis. Creatinine 1.2 slightly increased from recent (though with similar values in the past) With BUN/creatinine> 40 consistent with the patient's clinically dry appearance. Total bilirubin 1.7 with direct bilirubin 0.4, nonspecific in the setting of nontender abdomen. AST 204 which is newly elevated and nonspecific though likely acute phase reactant possibly related to mild rhabdomyolysis with CPK of 3900. Troponin 0.05, likely related to the patient's dehydration with component of demand. Will continue to trend. UA pending. COVID-19, influenza, RSV PCR negative. CT head negative for acute process. CT of the abdomen pelvis negative for acute traumatic or infectious process. Findings were reviewed with the patient's daughter over the phone who did express sincere concern and described in detail their care for the patient. She was also concerned and wanting to bring the patient's glasses as she feels this could help with her orientation and minimize confusion, which we arranged to have brought to the ED assistant front desk manager and then back to the patient's room. We did agree to proceed with admission given the patient's worsening clinical status in the setting of mild rhabdomyolysis, renal insufficiency and her elevated troponin. Case was discussed with Napoleon Stark [facility] [place]. Lew, [facility] hospitalist, who will evaluate the patient for admission. Triage Nursing notes reviewed and agree them. Prior medical records reviewed Vital Signs: reviewed and remarkable for no significant abnormalities Differential diagnosis: Infection, dehydration, metabolic abnormality, hypo/hyperglycemia, electrolyte disturbance, anemia, hypoxia, cardiac sources, intracerebral event, toxicologic, neurologic, as well as other pathologies. ER treatment provided: See below. Diagnostics interpreted by me: ECG: Sinus bradycardia, 57 bpm, nonspecific intraventricular conduction delay, no overt ST elevation or depression, QTC 498, QRS 120, similar to August 13, 2020. Cardiac Monitoring: An order for continuous cardiac monitoring was placed and demonstrated Sinus bradycardia, 57 bpm, no ectopy. Laboratory studies: See below Imaging studies: XR chest 1V portable CLINICAL HISTORY: Atypical chest pain COMPARISON STUDY: 08/13/2020 FINDINGS: The patient is mildly rotated. The cardiac and mediastinal contours remain stable. There is no failure. There is no focal pulmonary consolidation. There are no pleural effusions.[Arthritic changes are present within the shoulders. No pneumothorax is visualized. IMPRESSION: No active disease in the chest. ACT 112: Negative or not required by law. -- XR shoulder LT min 2V routine CLINICAL HISTORY: Left shoulder pain status post trauma COMPARISON: None. DISCUSSION: Moderately advanced arthritic changes. No acute fractures or dislocations are visualized. IMPRESSION: Moderately advanced arthritic change. No acute fractures. ACT 112: Negative or not required by law. -- XR shoulder RT min 2V routine CLINICAL HISTORY: Right shoulder pain status post trauma COMPARISON: None. DISCUSSION: There are moderately advanced arthritic changes. No acute fractures are visualized. There is narrowing of the humeral acromial distance. IMPRESSION: Moderately advanced arthritic change. No acute fractures. ACT 112: Negative or not required by law. -- CT head/brain wo con CLINICAL HISTORY: weakness, recurrent falls COMPARISON STUDY: 08/30/2020 TECHNIQUE: Axial CT of the brain is performed from the vertex to the skull base. IV contrast was not administered for this examination. A dose lowering technique was utilized adhering to the principles of ALARA. CT DOSE: 1768.17 mGy.cm FINDINGS: No intra or extra-axial mass lesions are visualized. There is no CT evidence of acute cortical infarction. There is no evidence of midline shift. There is no acute hemorrhage. No calvarial fractures are visualized. There are patchy white matter hypodensities likely on a small vessel basis. There is no evidence of pathologic ventricular dilatation. There is no evidence of acute sinusitis The examination is motion compromised. IMPRESSION: 1. Motion compromised study 2. No acute intracranial findings ACT 112: Negative or not required by law. -- CT abd pelvis IV con only CLINICAL HISTORY: Trauma with lower abdominal pain back pain and hip pain COMPARISON STUDY: 05/13/2020 TECHNIQUE: Patient was scanned in a dynamic helical fashion during intravenous administration of 94 cc of Optiray 320. A dose lowering technique was utilized adhering to the principles of ALARA. CT DOSE: 929.17 mGy.cm FINDINGS: Lower chest: There are dependent atelectatic changes. There are coronary artery calcifications. Liver: There is pneumobilia. No focal hepatic masses are visualized. Gallbladder: Surgically absent. Spleen: Normal in size and attenuation. Pancreas: Unremarkable. Adrenal glands: There are stable bilateral adrenal gland nodules likely representing adenomatous Kidneys: There is a 9 mm right renal hypodensities statistically representing a cyst Bowel: There are no transition zones indicate bowel obstruction. There is moderately extensive sigmoid diverticulosis. There is no evidence of acute peridiverticular inflammatory change. There are no findings to indicate acute appendicitis. Peritoneum: There is no intraperitoneal free air or abdominal ascites. Vasculature: The abdominal aorta is normal in course and caliber. Adenopathy: None. Pelvic viscera: The bladder, and pelvic viscera are unremarkable. Skeletal structures: There are postsurgical changes of an L3-S1 spinal fusion. There are healing T11 and T12 fractures. There is ankylosis of the dorsal spine. IMPRESSION: 1. Surgically absent gallbladder. Pneumobilia, likely postprocedural. 2. No evidence of bowel obstruction. No evidence of free air 3. Extensive sigmoid diverticulosis. No evidence of acute diverticulitis 4. Postsurgical changes in the lumbar spine 5. Ankylosis of the dorsal spine. Healing T11 and T12 fractures. Consultation(s): Case was discussed with Napoleon Stark [facility] with [place]. Lew, [facility] hospitalist, who will evaluate the patient for admission. HPI: The patient is a pleasant 85-year-old woman with a past medical history of dementia, Parkinson disease, CKD, CHF, atrial fibrillation, hypertension, hyperlipidemia who presents emergency department from home where she lives with her daughter her and her elderly for worsening generalized weakness with recurrent falls where now she is unable to ambulate even with multiple person assist in the setting of having a functional baseline of 1 person assist as she ambulates with her walker. Of note, the patient's daughter reports darker and foul-smelling urine. They report having a negative knee x- ray recently after a fall where the patient complained of knee pain. Otherwise the patient's daughter denies any fevers, chills, cough, congestion, shortness of breath, nausea, vomiting, diarrhea. The patient's daughter reports that the patient's was admitted to [facility] for COVID-19 but relates that he has been considered cleared/noninfectious for several weeks now and no one in the family has had COVID-19 symptoms otherwise. ROS: See above HPI for pertinent positives & negatives. A total of 10 systems reviewed and were otherwise negative. PAST MEDICAL HISTORY:See Below PAST SURGICAL HISTORY:See Below FAMILY HISTORY:See Below SOCIAL HISTORY:See Below HOME MEDICATIONS:See Below ALLERGIES:See Below VITALS:See Below PHYSICAL EXAMINATION: GENERAL: Awake, alert, fatigued/cachectic-appearing, in no distress HENT: Normocephalic, atraumatic. Oropharynx dry and cracked mm. EYES: Normal conjunctiva. Sclera non-icteric. NECK: Supple. No nuchal rigidity. FROM. No JVD. RESPIRATORY: Clear to auscultation. CARDIAC: Regular rate, normal rhythm. Extremities warm and well perfused. Pulses equal. ABDOMEN: Soft, non-distended. No tenderness to palpation. No rebound or guarding. No masses. RECTAL: Deferred. MUSCULOSKELETAL: Chest examination reveals no tenderness. The back is symmetrical on inspection without obvious abnormality. There is no CVA tenderness to palpation. No joint edema. LOWER EXTREMITIES: Calves are equal size bilaterally and non-tender. No edema. No discoloration. NEURO: No focal neurologic deficits. She moves all extremities equally with generalized weakness. SKIN: The patient does have several scattered excoriations and superficial ulcerations of her upper chest and shoulders as well as small contusions bilaterally. Her right lateral thigh has appropriately healing second-degree burn. Otherwise, no rash or jaundice noted. ED COURSE: Critical Care: I have personally spent greater than 35 minutes of critical care time in the direct management of this patient. This includes bedside care, interpretation of diagnostic studies, and testing, discussion with consultants, patient, and family members, and other required patient management activities. This 35 minutes is in excess of all separately billable procedures. Ramin Kirkpatrick MD Past Med/Surg History Medical History Anxiety Arthritis Atrial fibrillation Bradycardia Chronic lower back pain Constipation Dementia Gastro-esophageal reflux Hearing loss History of Clostridioides difficile colitis Hyperlipidemia Hyperparathyroidism Hypertension Macular degeneration Mitral regurgitation Neuropathy Osteoporosis Pacemaker Parkinsons disease Spinal stenosis of lumbar region with radiculopathy Urinary incontinence Venous insufficiency Venous stasis dermatitis Surgical History History of abdominal surgery REMOVED A TUMOR WITH A BLEEDING ULCER(BENIGN) History of cataract surgery History of knee replacement, total History of lumbar fusion Hx laparoscopic cholecystectomy (05/09/20) Laparoscopic Cholecystectomy Dr. Goddard 05/16/20 Hx of varicose vein ligation Status post repair of nerve NEUROPLASTY DECOMPRESSION MEDIAN NERVE AT CARPAL TUNNEL, LEFT-HAND Family History Mother Cancer Brain cancer Hypertension Brother Colon cancer Heart disease Colorectal cancer Father Myocardial infarction Hypertension Sister Colorectal cancer Sister Colorectal cancer Family/Other Breast cancer Daughter Thyroid cancer Denies family history of Ovarian cancer Prostate cancer Social History Smoking Status: Never smoker Second Hand Exposure: No; Hx Alcohol Use: No Hx Substance Use: No Preferred Language: Slovenian Communication Ability: Impaired Visual Impairment: Limited Hearing Ability: Use of Hearing Aid Commercial Painter Required: No Beliefs That Will Affect Care: None marital status: Current Living Situation: Family Current Living Situation Comment: lives with daughter at home current occupational status: retired 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 Other Information That Helps Us Care for You: No Feels Safe at Home: Yes Safety Concerns: Feels Safe At This Time caffeine: Yes Dental Care, Regularly: No Physical Activity Frequency: Does not Exercise Seatbelt Use: always Sunscreen Use: No Assistive Devices: Denture - Upper, Denture - Lower and Glasses Allergies Allergies Allergy/AdvReac Type Severity Reaction Status Date / Time succinylcholine Allergy Severe PSEUDO-CHOLINESTERASE Verified 11/04/20 15:44 DEFICIENCY Home Meds Home Medications Medication Instructions Recorded Confirmed Artificial Tears (kathy/min) 1 applic OPB UD PRN 11/01/18 11/04/20 polyethylene glycol 3350 [Miralax] 17 g PO DAILY PRN 11/01/18 11/04/20 cholecalciferol (vitamin D3) 1,250 mcg PO TU 08/30/20 11/04/20 famotidine 40 mg PO QAM 08/30/20 11/04/20 alendronate 70 mg PO SA 11/04/20 11/04/20 amiodarone 200 mg PO DAILY@199911/04/20 11/04/20 aspirin 325 mg PO DAILY@1800 11/04/20 11/04/20 escitalopram oxalate 20 mg PO DAILY@199911/04/20 11/04/20 furosemide 20 mg PO QAM 11/04/20 11/04/20 lorazepam 0.5 mg PO DAILY@1800 PRN 11/04/20 11/04/20 potassium chloride 20 meq PO DAILY@1400 11/04/20 11/04/20 Previous Rx's Medication Instructions Recorded memantine 10 mg tablet 10 mg PO BID #180 tab 05/31/20 trazodone 50 mg tablet 25 mg PO HS #15 tab 06/07/20 donepezil 10 mg tablet 10 mg PO HS 90 Days #90 tab 06/22/20 collagenase clostridium histo. 250 1 applic TOPICAL DAILY #30 g 08/16/20 unit/gram topical ointment carbidopa 25 mg-levodopa 100 mg 3 tab PO QID #1080 tab 08/17/20 tablet carbidopa ER 50 mg-levodopa 200 mg 1 tab PO BID 90 Days #180 tab 08/21/20 tablet,extended release carbidopa 25 mg-levodopa 250 mg 1 tab PO TID PRN 90 Days #270 tab 08/29/20 disintegrating tablet miscellaneous medical supply 1 ea .ROUTE ONCE #1 ea 09/14/20 latex gloves #24 ea 09/25/20 wrist splint #2 ea 09/25/20 clonazepam 0.5 mg disintegrating 0.5 mg PO HS 30 Days #30 tab 10/08/20 tablet Results & Data (ED) Vital Signs Vital Signs - 24 hr 11/04/20 14:15 11/04/20 15:04 11/04/20 15:21 Temperature 37.0 C Temperature Source Oral Pulse Rate 59 L 57 L Pulse Rate from SpO2 Sensor 57 L Respiratory Rate 20 17 Respiratory Effort / Characteristics Non-Labored Respiratory Depth Normal Blood Pressure 149/74 H 167/77 H Blood Pressure Mean 99 119 Blood Pressure Position Sitting Pulse Oximetry 100 100 Oxygen Delivery Method Room Air Room Air Sepsis Recent Fever Within 48 Hours No Sepsis New/Unexplained Change in Mental Status No Sepsis Action Taken by Nursing No Action Required 11/04/20 15:29 11/04/20 15:30 11/04/20 15:31 Temperature Temperature Source Pulse Rate 58 L 60 60 Pulse Rate from SpO2 Sensor 57 L 58 L 59 L Respiratory Rate 17 16 19 Respiratory Effort / Characteristics Respiratory Depth Blood Pressure 163/79 H Blood Pressure Mean 116 Blood Pressure Position Pulse Oximetry 99 99 100 Oxygen Delivery Method Sepsis Recent Fever Within 48 Hours Sepsis New/Unexplained Change in Mental Status Sepsis Action Taken by Nursing 11/04/20 16:00 11/04/20 16:01 11/04/20 16:30 Temperature Temperature Source Pulse Rate 58 L 56 L 62 Pulse Rate from SpO2 Sensor 62 56 L 60 Respiratory Rate 15 17 16 Respiratory Effort / Characteristics Respiratory Depth Blood Pressure 147/67 H Blood Pressure Mean 92 Blood Pressure Position Pulse Oximetry 98 100 Oxygen Delivery Method Sepsis Recent Fever Within 48 Hours Sepsis New/Unexplained Change in Mental Status Sepsis Action Taken by Nursing 11/04/20 16:31 11/04/20 17:00 11/04/20 17:01 Temperature Temperature Source Pulse Rate 61 53 L 56 L Pulse Rate from SpO2 Sensor 61 54 L 56 L Respiratory Rate 17 16 14 Respiratory Effort / Characteristics Respiratory Depth Blood Pressure 158/70 H Blood Pressure Mean 102 Blood Pressure Position Pulse Oximetry 95 100 100 Oxygen Delivery Method Sepsis Recent Fever Within 48 Hours Sepsis New/Unexplained Change in Mental Status Sepsis Action Taken by Nursing 11/04/20 17:30 11/04/20 18:00 Temperature Temperature Source Pulse Rate 63 57 L Pulse Rate from SpO2 Sensor Respiratory Rate 19 16 Respiratory Effort / Characteristics Respiratory Depth Blood Pressure Blood Pressure Mean Blood Pressure Position Pulse Oximetry Oxygen Delivery Method Sepsis Recent Fever Within 48 Hours Sepsis New/Unexplained Change in Mental Status Sepsis Action Taken by Nursing Laboratory Data Attestation: I reviewed the patient's lab results. Result diagrams: 11/04/20 14:55 11/04/20 14:55 Lab Results 11/04/20 11/04/20 11/04/20 Range/Units 14:55 14:55 14:55 WBC 8.04 (4.8-10.8) K/uL RBC 3.52 L (4.2-5.4) M/uL Hgb 10.8 L (12.0-16.0) g/dL Hct 34.1 L (37-47) % MCV 96.9 (80-100) fL MCH 30.7 (25-34) pg MCHC 31.7 L (32-36) g/dL RDW Std Deviation 56.6 H (36.4-46.3) fL RDW Coeff of Elizabeth 16.0 H (11.5-14.5) % Plt Count 194 (130-400) K/uL MPV 11.0 H (7.4-10.4) fL Immature Gran % (Auto) 0.2 % Neut % (Auto) 79.0 % Lymph % (Auto) 12.2 % [place] % (Auto) 8.0 % Eos % (Auto) 0.6 % Baso % (Auto) 0.0 % Neut # (Auto) 6.35 (1.4-6.5) K/uL Lymph # (Auto) 0.98 L (1.2-3.4) K/uL [place] # (Auto) 0.64 H (0.11-0.59) K/uL Eos # (Auto) 0.05 (0-0.5) K/uL Baso # (Auto) 0.00 (0-0.2) K/uL Immature Gran # (Auto) 0.02 (0.00-0.02) K/uL PT 10.3 (9.0-12.0) Seconds INR 1.0 (0.9-1.1) APTT 26.2 (21.0-31.0) Seconds PTT Ratio 0.9 Sodium 138 (136-145) mmol/L Potassium 4.5 (3.5-5.1) mmol/L Chloride 105 (98-107) mmol/L Carbon Dioxide 27 (21-32) mmol/L Anion Gap 7.0 (3-11) BUN 53 H (7-18) mg/dl Creatinine 1.22 H (0.6-1.2) mg/dl Est Cr Clr Drug Dosing Not Reportable Est GFR ( Amer) 47.1 Est GFR (Non-Af Amer) 40.6 BUN/Creatinine Ratio 43.4 H (10-20) Glucose 97 (70-99) mg/dl Calcium 9.4 (8.5-10.1) mg/dl Phosphorus 3.0 (2.5-4.9) mg/dl Magnesium 2.4 (1.8-2.4) mg/dl Total Bilirubin 1.7 H (0.2-1) mg/dl Direct Bilirubin 0.4 H (0-0.2) mg/dl AST 204 H (15-37) U/L ALT 22 (12-78) U/L Alkaline Phosphatase 124 H (45-117) U/L Total Creatine Kinase 3989 H (26-192) U/L Troponin I 0.052 H* (0-0.045) ng/ml Total Protein 6.5 (6.4-8.2) gm/dl Albumin 2.9 L (3.4-5.0) gm/dl Globulin 3.6 (2.5-4.0) gm/dl Albumin/Globulin Ratio 0.8 L (0.9-2) Lipase 159 (73-393) U/L TSH 1.370 (0.300-4.500) uIu/ml Urine Color Urine Appearance (Clear) Urine pH (4.5-7.5) Ur Specific Mcdavid (1.000-1.030) Urine Protein (Negative) Urine Glucose (UA) (Negative) Urine Ketones (Negative) Urine Blood (Negative) Urine Nitrite (Negative) Urine Bilirubin (Negative) Urine Urobilinogen (Negative) Ur Leukocyte Esterase (Negative) Urine WBC (Auto) (0-5) /hpf Urine RBC (Auto) (0-4) /hpf U Hyaline Cast (Auto) (0-5) /lpf U Epithel Cells (Auto) (0-5) /lpf Urine Bacteria (Auto) (Negative) Ur Renal Epithelial Cell COVID-19 Eval Order SARS-CoV-2 (PCR) (Negative) Influenza Type A (PCR) (Neg) Influenza Type B (PCR) (Neg) RSV (RT-PCR) (Neg) 11/04/20 11/04/20 11/04/20 Range/Units 16:25 16:37 16:37 WBC (4.8-10.8) K/uL RBC (4.2-5.4) M/uL Hgb (12.0-16.0) g/dL Hct (37-47) % MCV (80-100) fL MCH (25-34) pg MCHC (32-36) g/dL RDW Std Deviation (36.4-46.3) fL RDW Coeff of Elizabeth (11.5-14.5) % Plt Count (130-400) K/uL MPV (7.4-10.4) fL Immature Gran % (Auto) % Neut % (Auto) % Lymph % (Auto) % [place] % (Auto) % Eos % (Auto) % Baso % (Auto) % Neut # (Auto) (1.4-6.5) K/uL Lymph # (Auto) (1.2-3.4) K/uL [place] # (Auto) (0.11-0.59) K/uL Eos # (Auto) (0-0.5) K/uL Baso # (Auto) (0-0.2) K/uL Immature Gran # (Auto) (0.00-0.02) K/uL PT (9.0-12.0) Seconds INR (0.9-1.1) APTT (21.0-31.0) Seconds PTT Ratio Sodium (136-145) mmol/L Potassium (3.5-5.1) mmol/L Chloride (98-107) mmol/L Carbon Dioxide (21-32) mmol/L Anion Gap (3-11) BUN (7-18) mg/dl Creatinine (0.6-1.2) mg/dl Est Cr Clr Drug Dosing Est GFR ( Amer) Est GFR (Non-Af Amer) BUN/Creatinine Ratio (10-20) Glucose (70-99) mg/dl Calcium (8.5-10.1) mg/dl Phosphorus (2.5-4.9) mg/dl Magnesium (1.8-2.4) mg/dl Total Bilirubin (0.2-1) mg/dl Direct Bilirubin (0-0.2) mg/dl AST (15-37) U/L ALT (12-78) U/L Alkaline Phosphatase (45-117) U/L Total Creatine Kinase (26-192) U/L Troponin I (0-0.045) ng/ml Total Protein (6.4-8.2) gm/dl Albumin (3.4-5.0) gm/dl Globulin (2.5-4.0) gm/dl Albumin/Globulin Ratio (0.9-2) Lipase (73-393) U/L TSH (0.300-4.500) uIu/ml Urine Color Yellow Urine Appearance Cloudy A (Clear) Urine pH 8.5 H (4.5-7.5) Ur Specific Mcdavid 1.013 (1.000-1.030) Urine Protein Trace H (Negative) Urine Glucose (UA) Negative (Negative) Urine Ketones Negative (Negative) Urine Blood Negative (Negative) Urine Nitrite Negative (Negative) Urine Bilirubin Negative (Negative) Urine Urobilinogen Negative (Negative) Ur Leukocyte Esterase 3+ H (Negative) Urine WBC (Auto) 10-30 H (0-5) /hpf Urine RBC (Auto) 0-4 (0-4) /hpf U Hyaline Cast (Auto) 1-5 (0-5) /lpf U Epithel Cells (Auto) >30 H (0-5) /lpf Urine Bacteria (Auto) 1+ H (Negative) Ur Renal Epithelial Cell Not Reportable COVID-19 Eval Order CovFluRsv at [facility] SARS-CoV-2 (PCR) NEGATIVE (Negative) Influenza Type A (PCR) Negative (Neg) Influenza Type B (PCR) Negative (Neg) RSV (RT-PCR) Negative (Neg) Administered Medications Amiodarone HCl (Amiodarone 200 Mg Tab) 200 mg PO DAILY@1999 [facility] Stop: 12/04/20 21:14 Last Admin: 11/04/20 23:08 Dose: 200 mg Documented by: [id number] Carbidopa/Levodopa (Carbidopa/Levodopa 50/200mg Ext Rel Tab) 1 tab PO BID [facility] Stop: 12/04/20 21:14 Last Admin: 11/04/20 23:13 Dose: 1 tab Documented by: [id number] Carbidopa/Levodopa (Carbidopa/Levodopa 25/100mg Tab) 3 tab PO QID [facility] Stop: 12/04/20 21:14 Last Admin: 11/04/20 23:12 Dose: 3 tab Documented by: [id number] Clonazepam (Clonazepam 0.5 Mg Tab) 0.5 mg PO [facility] Stop: 12/04/20 21:14 Last Admin: 11/04/20 23:11 Dose: 0.5 mg Documented by: [id number] Donepezil HCl (Donepezil Hcl 10 Mg Tab) 10 mg PO [facility] Stop: 12/04/20 21:14 Last Admin: 11/04/20 23:08 Dose: 10 mg Documented by: [id number] Escitalopram Oxalate (Escitalopram Oxalate 20 Mg Tab) 20 mg PO DAILY@1999 [facility] Stop: 12/04/20 21:14 Last Admin: 11/04/20 23:12 Dose: 20 mg Documented by: [id number] Sodium Chloride (Nss 1000ml) 1,000 mls @ 75 mls/hr IV .[id number] [facility] Stop: 12/04/20 21:14 Last Admin: 11/04/20 23:03 Dose: 75 mls/hr Documented by: [id number] Ciprofloxacin (Cipro / D5w) 400 mg in 200 mls @ 100 mls/hr IV Q12H [facility]; Protocol Stop: 11/09/20 21:59 Last Infusion: 11/05/20 01:28 Dose: 0 mls/hr Documented by: [id number] Admin: 11/04/20 23:02 Dose: 100 mls/hr Documented by: [id number] Memantine (Memantine Hcl 10 Mg Tab) 10 mg PO BID [facility] Stop: 12/04/20 21:14 Last Admin: 11/04/20 23:12 Dose: 10 mg Documented by: [id number] Miconazole Nitrate (Miconazole Nitrate Powder 43 Gm) 1 appln EXT PRN PRN PRN Reason: Affected Skin Folds Stop: 12/04/20 21:17 Last Admin: 11/04/20 23:13 Dose: 1 appln Documented by: [id number] Trazodone HCl (Trazodone Hcl 50 Mg Tab) 25 mg PO HS [facility] Stop: 12/04/20 21:14 Last Admin: 11/04/20 23:10 Dose: 25 mg Documented by: [id number] Discontinued Medications Acetaminophen (Acetaminophen 1000 Mg/100 Ml Iv) Confirm Administered Dose 1,000 mg IV .STK-MED ONE Stop: 11/04/20 18:19 Last Admin: 11/04/20 18:20 Dose: Not Given Documented by: [id number] Sodium Chloride (Nss 1000ml) 1,000 mls @ 999 mls/hr IV .Q1H1M [facility] Stop: 11/04/20 16:15 Last Infusion: 11/04/20 16:24 Dose: 0 mls/hr Documented by: [id number] Admin: 11/04/20 15:23 Dose: 999 mls/hr Documented by: [id number] Acetaminophen (Ofirmev) 1,000 mg in 100 mls @ 400 mls/hr IV NOW STA Stop: 11/04/20 15:20 Last Infusion: 11/04/20 18:35 Dose: 0 mls/hr Documented by: [id number] Admin: 11/04/20 18:20 Dose: 400 mls/hr Documented by: [id number] Ciprofloxacin (Cipro / D5w) 400 mg in 200 mls @ 100 mls/hr IV Q12H [facility]; Protocol Stop: 11/09/20 18:29 Last Admin: 11/04/20 21:47 Dose: Not Given Documented by: [id number] Ioversol (Ioversol 100ml) 94 ml IV ONCE ONE Stop: 11/04/20 17:09 Last Admin: 11/04/20 17:09 Dose: 94 ml Documented by: [id number] Discharge Plan Visit Data Chief Complaint: Fall Stated Complaint: WEAKNESS, FALLS, URINARY SX ED Provider: Ramin Kirkpatrick Discharge Problem: Rhabdomyolysis, Dementia, Elevated troponin level, Renal insufficiency, Generalized muscle weakness Patient Disposition: Admitted As Inpatient Discharge Instructions Interventions: ED Discharge Assessment Last Done: 11/04/20 20:52 Discharge Problem: Rhabdomyolysis Qualifiers: Rhabdomyolysis type: non-traumatic Qualified Code(s): M62.82 - Rhabdomyolysis Dementia Qualifiers: Dementia type: unspecified type Dementia behavioral disturbance: without behavioral disturbance Qualified Code(s): F03.90 - Unspecified dementia without behavioral disturbance
[2020-11-04] MEDS ORDERED: IOVERSOL 100ml IV ONE (17:08)
--- NOTE | 2020-11-04 17:26 | CT Scan Report ---
CT head/brain wo con CLINICAL HISTORY: weakness, recurrent falls COMPARISON STUDY: 08/30/2020 TECHNIQUE: Axial CT of the brain is performed from the vertex to the skull base. IV contrast was not administered for this examination. A dose lowering technique was utilized adhering to the principles of ALARA. CT DOSE: 1768.17 mGy.cm FINDINGS: No intra or extra-axial mass lesions are visualized. There is no CT evidence of acute cortical infarc tion. There is no evidence of midline shift. There is no acute hemorrhage. No calvarial fractures ar e visualized. There are patchy white matter hypodensities likely on a small vessel basis. There is no evidence of pathologic ventricular dilatation. There is no evidence of acute sinusitis The examination is motion compromised. IMPRESSION: 1. Motion compromised study 2. No acute intracranial findings ACT 112: Negative or not required by law. Electronically signed by: Norris Jasso M.D. 11/04/2020 5:25 PM
--- NOTE | 2020-11-04 17:34 | CT Scan Report ---
CT abd pelvis IV con only CLINICAL HISTORY: Trauma with lower abdominal pain back pain and hip pain COMPARISON STUDY: 05/13/2020 TECHNIQUE: Patient was scanned in a dynamic helical fashion during intravenous administration of 94 c c of Optiray 320. A dose lowering technique was utilized adhering to the principles of ALARA. CT DOSE: 929.17 mGy.cm FINDINGS: Lower chest: There are dependent atelectatic changes. There are coronary artery calcifications. Liver: There is pneumobilia. No focal hepatic masses are visualized. Gallbladder: Surgically absent. Spleen: Normal in size and attenuation. Pancreas: Unremarkable. Adrenal glands: There are stable bilateral adrenal gland nodules likely representing adenomatous Kidneys: There is a 9 mm right renal hypodensities statistically representing a cyst Bowel: There are no transition zones indicate bowel obstruction. There is moderately extensive sigmoi d diverticulosis. There is no evidence of acute peridiverticular inflammatory change. There are no fi ndings to indicate acute appendicitis. Peritoneum: There is no intraperitoneal free air or abdominal ascites. Vasculature: The abdominal aorta is normal in course and caliber. Adenopathy: None. Pelvic viscera: The bladder, and pelvic viscera are unremarkable. Skeletal structures: There are postsurgical changes of an L3-S1 spinal fusion. There are healing T11 and T12 fractures. There is ankylosis of the dorsal spine. IMPRESSION: 1. Surgically absent gallbladder. Pneumobilia, likely postprocedural. 2. No evidence of bowel obstruction. No evidence of free air 3. Extensive sigmoid diverticulosis. No evidence of acute diverticulitis 4. Postsurgical changes in the lumbar spine 5. Ankylosis of the dorsal spine. Healing T11 and T12 fractures. ACT 112: Negative or not required by law. Electronically signed by: Norris Jasso M.D. 11/04/2020 5:33 PM
[2020-11-04 17:42] LABS: Influenza A virus by PCR Negative (Neg); Influenza B virus by PCR Negative (Neg); RSV by PCR Negative (Neg); SARS CoV2 RNA(COVID-19) InHosp NEGATIVE (Negative)
--- NOTE | 2020-11-04 18:11 | History & Physical Report ---
Date of Service November 04, 2020 Assessment & Plan (1) Failure to thrive: Due to the patient's noted failure to thrive we will admit her to the hospital. We will proceed in the following manner: Patient is noted to have elevated troponin. This may be due to her declining renal function. Nonetheless we will trend her cardiac enzymes and EKGs and monitor her rhythm over the next 24 hours. We will maintain her on her antiplatelet regimen of aspirin as noted in her home medications. History of atrial fibrillation she will be maintained on amiodarone 200 mg daily. The patient is noted to have an elevated CK level. The patient is having more frequent falls and is less mobile than usual this could explain the elevation of her CK level. We will follow serial labs and we will hydrate her gently with IV fluid. Nephrotoxic medications will be avoided. It appears that the patient may have a urinary tract infection. This could explain her decline over the past several days. We will place her on empiric antibiotics and adjust this based on pending urine culture. It should be noted that in July 2020 in June 2020 she suffered a urinary tract infection with Klebsiella. She also had a urinary tract infection in October 2019 with E. coli. Each of these organisms was sensitive to Cipro. Therefore, we will use this antibiotic. Certainly the patient's decline in appetite could be related to an underlying urinary tract infection will be treated above as noted. Due to her decline and frequent falls we will get PT and OT evaluations, as well as involve discharge planning to ensure safe disposition. Maintained on her home regimen of Parkinson's medications. She will be maintained on her home medication regimen for dementia. (2) Frequent falls: See plan above We will utilize Lovenox for DVT prevention adjusted for renal function. I discussed CODE STATUS with the patient's daughter on the phone. She notes that she needs to discuss this with her brother prior to making a decision. I did inform her in the interim she will be treated as a full code until we hear back from them. Certainly any decisions they make about CODE STATUS will be honored. History of Present Illness Chief Complaint: "I guess I am not doing so well at home" Primary Care Provider: Edwige Mason, This is an 85-year-old female with a history of Parkinson's disease. She presented to [facility] as her family has noted a decline in her function over the past 3 to 4 days. Patient has an underlying history of dementia and Parkinson's disease and therefore the history she was able to provide was limited. At the time of my exam I did asked the patient if she was in any pain which she said she was not. He did not provide any other additional information. I did discuss her situation with her daughter with whom she lives. Her daughter was able to provide a great deal of detailed information. She notes that her mother generally ambulates with a walker and assist of 1 person and has noted to have frequent falls at home. Her daughter notes that typically when her mother falls they are able to lower her to the ground in a controlled fashion preventing her from sustaining any injuries. She notes that the falls that her mother has been suffering have been getting more frequently particularly last 3 to 4 days. He notes that her mother is able to consume regular food however over the past 3 to 4 days she has not been eating or drinking very much. She notes that she frequently checks her mother's temperature and there has been no noted fevers over the past several days. Has not observed any shakes or chills. But having a poor appetite her mother has not had any nausea vomiting. She notes that her bowels have been working in a normal fashion for her. Best of her knowledge there is been no noted weight loss. In the emergency department patient had shoulder x-rays which were negative for fracture. CT scan of the head showed no acute intracranial process. A chest x- ray was negative for pneumonia or CHF and a CT scan of the abdomen was negative for acute abdominal pathology except for noted diverticulosis. CBC revealed patient's white blood cell count and platelet count were normal. Hemoglobin and hematocrit were 10.8 and 34.1 which was near her baseline. Electrolytes revealed sodium and potassium were normal her BUN and creatinine were 53 and 1.2. This creatinine was slightly above her baseline of 0.9. Total CK level was noted to be 3989. Also noted to have an elevated troponin at 0.052. EKG did not demonstrate any acute ischemic changes. A Covid test was performed which was noted to be negative. At the time of my interview the patient was resting in bed comfortable in no acute distress. Again she did not offer any specific complaints. I did discuss the case with the nurse at the bedside and no immediate concerns were identified. Allergies Allergy/AdvReac Type Severity Reaction Status Date / Time succinylcholine Allergy Severe PSEUDO-CHOLINESTERASE Verified 11/04/20 15:44 DEFICIENCY Home Medications Medication Instructions Recorded Confirmed Type Artificial Tears (kathy/min) 1 applic OPB UD PRN 11/01/18 11/04/20 History polyethylene glycol 3350 [Miralax] 17 g PO DAILY PRN 11/01/18 11/04/20 History memantine 10 mg tablet 10 mg PO BID #180 tab 05/31/20 11/04/20 Rx donepezil 10 mg tablet 10 mg PO HS 90 Days #90 tab 06/22/20 11/04/20 Rx collagenase clostridium histo. 250 1 applic TOPICAL DAILY #30 g 08/16/20 11/04/20 Rx unit/gram topical ointment carbidopa 25 mg-levodopa 100 mg 3 tab PO QID #1080 tab 08/17/20 11/04/20 Rx tablet carbidopa ER 50 mg-levodopa 200 mg 1 tab PO BID 90 Days #180 tab 08/21/20 11/04/20 Rx tablet,extended release carbidopa 25 mg-levodopa 250 mg 1 tab PO TID PRN 90 Days #270 tab 08/29/20 11/04/20 Rx disintegrating tablet cholecalciferol (vitamin D3) 1,250 mcg PO TU 08/30/20 11/04/20 History famotidine 40 mg PO QAM 08/30/20 11/04/20 History miscellaneous medical supply 1 ea .ROUTE ONCE #1 ea 09/14/20 09/25/20 Rx latex gloves #24 ea 09/25/20 09/25/20 Rx wrist splint #2 ea 09/25/20 09/25/20 Rx clonazepam 0.5 mg disintegrating 0.5 mg PO HS 30 Days #30 tab 10/08/20 11/04/20 Rx tablet alendronate 70 mg PO SA 11/04/20 11/04/20 History amiodarone 200 mg PO DAILY@199911/04/20 11/04/20 History aspirin 325 mg PO DAILY@1800 11/04/20 11/04/20 History escitalopram oxalate 20 mg PO DAILY@199911/04/20 11/04/20 History furosemide 20 mg PO QAM 11/04/20 11/04/20 History lorazepam 0.5 mg PO DAILY@1800 PRN 11/04/20 11/04/20 History potassium chloride 20 meq PO DAILY@1400 11/04/20 11/04/20 History trazodone 50 mg tablet 25 mg PO HS #15 tab 11/05/20 Rx Past Med/Surg History Medical History Anxiety Arthritis Atrial fibrillation Bradycardia Chronic lower back pain Constipation Dementia Gastro-esophageal reflux Hearing loss History of Clostridioides difficile colitis Hyperlipidemia Hyperparathyroidism Hypertension Macular degeneration Mitral regurgitation Neuropathy Osteoporosis Pacemaker Parkinsons disease Spinal stenosis of lumbar region with radiculopathy Urinary incontinence Venous insufficiency Venous stasis dermatitis Surgical History History of abdominal surgery REMOVED A TUMOR WITH A BLEEDING ULCER(BENIGN) History of cataract surgery History of knee replacement, total History of lumbar fusion Hx laparoscopic cholecystectomy (05/09/20) Laparoscopic Cholecystectomy Dr. Goddard 05/16/20 Hx of varicose vein ligation Status post repair of nerve NEUROPLASTY DECOMPRESSION MEDIAN NERVE AT CARPAL TUNNEL, LEFT-HAND Family History Mother Cancer Brain cancer Hypertension Brother Colon cancer Heart disease Colorectal cancer Father Myocardial infarction Hypertension Sister Colorectal cancer Sister Colorectal cancer Family/Other Breast cancer Daughter Thyroid cancer Denies family history of Ovarian cancer Prostate cancer Social History Smoking Status: Never smoker Second Hand Exposure: No; Hx Alcohol Use: No Hx Substance Use: No Preferred Language: Ugandan Communication Ability: Impaired Visual Impairment: Limited Hearing Ability: Use of Hearing Aid Leather Cartridge Belt Maker Required: No Beliefs That Will Affect Care: None marital status: Current Living Situation: Family Current Living Situation Comment: lives with daughter at home current occupational status: retired 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 Some information was obtained from the patient's daughter. Constitutional: no fever Respiratory: no cough Cardiovascular: no chest pain Gastrointestinal: no nausea, no vomiting, no constipation and no diarrhea/loose stools Physical Exam Constitutional: well developed and well nourished; no acute distress ENMT: Ears: no hearing impairment Neck: trachea midline Respiratory: normal respiratory effort; no respiratory distress and no labored breathing Cardiovascular: Rate/Rhythm: regular rate and regular rhythm Gastrointestinal (Abdomen): Percussion/Palpation: abdomen soft; abdomen nontender No pain with palpation Musculoskeletal: No gross orthopedic abnormalities. No calf tenderness. No foot wounds noted. Skin: Patient had multiple bruises noted in various stages of healing. Neurologic: Patient can follow simple commands and move her extremities without noted focal deficits. Her speech was coherent. The patient was alert to person. She was alert to place as she knew she was in [place] in the hospital. She was able to identify the year. She was noted to have episodes of intermittent confusion during my interview. Results & Data Results & Data ([facility]) Vital Signs (Past 12 Hours) Vital Signs Temp Pulse Resp BP Pulse Ox 11/04/20 17:30 63 19 11/04/20 17:01 56 L 14 158/70 H 100 11/04/20 17:00 53 L 16 100 11/04/20 16:31 61 17 95 11/04/20 16:30 62 16 11/04/20 16:01 56 L 17 147/67 H 100 11/04/20 16:00 58 L 15 98 11/04/20 15:31 60 19 163/79 H 100 11/04/20 15:30 60 16 99 11/04/20 15:29 58 L 17 99 11/04/20 15:21 57 L 17 167/77 H 100 11/04/20 14:15 37.0 C 59 L 20 149/74 H 100 Supervising Physician Co-Signing Physician Notes I personally saw and examined the patient. I verified all lopez points and agree with MONIKA Stark with the following exceptions and/or additions: 85 year old female with dementia and Parkinson's disease who presents to the ER with failure to thrive and family unable to continue looking after her at home. O/E alert, disorientated x3, making incomprehensible sounds, moving all 4 extremities, multiple areas of skin tears on anterior chest and arms with think skin and surrounding ecchymosis (none concerning for abuse) without surrounding cellulitis, approximately 20cm circumference oval wound on right later thigh without surrounding cellulitis (noted during July hospitalization). A/P Rhabdomyolysis - suspect from her multiple falls, will avoid rapid rehydration given her age and high likelihood of pulmonary edema. Monitor renal function daily. Parkinson's Disease - Continue sinemet dosing, consider neurology consult Acute UTI - agree with IV ciprofloxacin to cover for this but unclear how much this is affecting her Right lateral thigh wound - prior scold in July hospitalization, unclear why it has not been healing but likely from multiple ongoing falls. Wound care nurse. PG Care Time/CCT Total # of Minutes Spent Total Time Spent with Patient: Total time spent is greater than 50% in coordination of care (as documented) at patient's floor/unit and/or counseling patient: Coding Level of Care Code 85555 Initial Inpt Care Lvl 3 Diagnoses Failure to thrive Frequent falls R29.6
[2020-11-04] MEDS ORDERED: ACETAMINOPHEN 1000 MG/100 ML IV IV ONE (18:18)
[2020-11-04] MEDS ORDERED: CIPROFLOXACIN / D5W 400 MG/200 ML BAG IV SCH (18:30)
--- NOTE | 2020-11-04 20:08 | Electrocardiogram Report ---
Test Reason : Blood Pressure : / mmHG Vent. Rate : 057 BPM Atrial Rate : 057 BPM P-R Int : 150 ms QRS Dur : 120 ms QT Int : 512 ms P-R-T Axes : 084 013 040 degrees QTc Int : 498 ms Sinus bradycardia Non-specific intra-ventricular conduction delay Borderline ECG When compared with ECG of 13-AUG-2020 10:32, No significant change was found Confirmed by Satya Garcia ([id number]) on 11/04/2020 8:08:27 PM Referred By: REFERRED SELF Confirmed By:Akhil Garcia
[2020-11-04] MEDS ORDERED: ARTIFICIAL TEARS OP OINT 3.5 GM TUBE OPB PRN (21:15)
[2020-11-04] MEDS ORDERED: POLYETHYLENE (MIRALAX) 17 GM PACK PO PRN (21:15)
[2020-11-04] MEDS ORDERED: MICONAZOLE NITRATE POWDER 43 GM EXT PRN (21:18)
[2020-11-04] MEDS ORDERED: CARBIDOPA/LEVODOPA 25-250 1 EA TAB PO PRN (21:32)
[2020-11-04 22:30] LABS: Creatine Kinase MB 13.4 ng/ml (0.5-3.6); Troponin I 0.056 ng/ml (0-0.045)
[2020-11-04] MEDS: CIPROFLOXACIN / D5W 400 MG/200 ML BAG IV SCH (23:02)
[2020-11-04] MEDS: SODIUM CHLORIDE 0.9% 1000ML 1,000 ML IV SCH (23:03)
[2020-11-04] MEDS: AMIODARONE 200 MG TAB PO SCH (23:08)
[2020-11-04] MEDS: DONEPEZIL HCL 10 MG TAB PO SCH (23:08)
[2020-11-04] MEDS: traZODone HCL 50 MG TAB PO SCH (23:10)
[2020-11-04] MEDS: clonazePAM 0.5 MG TAB PO SCH (23:11)
[2020-11-04] MEDS: CARBIDOPA/LEVODOPA 25/100MG TAB PO SCH (23:12)
[2020-11-04] MEDS: ESCITALOPRAM OXALATE 20 MG TAB PO SCH (23:12)
[2020-11-04] MEDS: MEMANTINE HCL 10 MG TAB PO SCH (23:12)
[2020-11-04] MEDS: CARBIDOPA/LEVODOPA 50/200MG EXT REL TAB PO SCH (23:13)
[2020-11-05 04:38] LABS: Eosinophils # (auto) 0.04 K/uL (0-0.5); Eosinophils % (auto) 0.7 %; Hematocrit (blood only) 30.7 % (37-47); Hemoglobin 9.8 g/dL (12.0-16.0); Immature Granulocytes # (auto) 0.02 K/uL (0.00-0.02); Immature Granulocytes % (auto) 0.4 %; Lymphocytes % (auto) 16.2 %; Mean Corpuscular Hemoglobin 30.7 pg (25-34); Mean Corpuscular Hgb Conc 31.9 g/dL (32-36); Mean Corpuscular Volume 96.2 fL (80-100); Mean Platelet Volume 10.4 fL (7.4-10.4); Monocytes # (auto) 0.41 K/uL (0.11-0.59); Monocytes % (auto) 7.4 %; Neutrophils # (auto) 4.17 K/uL (1.4-6.5); Neutrophils % (auto) 75.3 %; Platelet Count 188 K/uL (130-400); RDW Coefficient of Variation 15.7 % (11.5-14.5); RDW Standard Deviation 55.7 fL (36.4-46.3); Red Blood Count 3.19 M/uL (4.2-5.4); White Blood Count 5.54 K/uL (4.8-10.8)
[2020-11-05 04:56] LABS: BUN Creatinine Ratio 46.5 (10-20); Blood Urea Nitrogen 43 mg/dl (7-18); Calcium 8.6 mg/dl (8.5-10.1); Carbon Dioxide 27 mmol/L (21-32); Chloride 109 mmol/L (98-107); Creatinine Clr Calc Pharmacy 44.5 ml/min; Est GFR (African American) 65.4; Est GFR (Non-African American) 56.4; Glucose 87 mg/dl (70-99); Potassium 4.1 mmol/L (3.5-5.1); Sodium 140 mmol/L (136-145)
[2020-11-05 05:06] LABS: Creatine Kinase MB 8.4 ng/ml (0.5-3.6); Troponin I 0.053 ng/ml (0-0.045)
[2020-11-05] MEDS: ENOXAPARIN INJ 30 MG/0.3 ML SYR SQ SCH (08:46)
[2020-11-05] MEDS: MEMANTINE HCL 10 MG TAB PO SCH ×2 (08:48→20:48)
[2020-11-05] MEDS: FAMOTIDINE 40 MG TABLET PO SCH (08:48)
[2020-11-05] MEDS: CARBIDOPA/LEVODOPA 50/200MG EXT REL TAB PO SCH ×2 (08:49→20:48)
[2020-11-05] MEDS: CARBIDOPA/LEVODOPA 25/100MG TAB PO SCH ×4 (08:49→20:48)
[2020-11-05] MEDS: CIPROFLOXACIN / D5W 400 MG/200 ML BAG IV SCH ×2 (10:00→22:17)
[2020-11-05] MEDS: SODIUM CHLORIDE 0.9% 1000ML 1,000 ML IV SCH (13:36)
[2020-11-05] MEDS: COLLAGENASE OINT 30 GM TUBE TOP SCH (14:09)
[2020-11-05] MEDS: ASPIRIN 325 MG ECTAB PO SCH (17:32)
[2020-11-05] MEDS ORDERED: LORazepam 0.5 MG TAB PO PRN (18:00)
--- NOTE | 2020-11-05 19:25 | Hospitalist Progress Note ---
Date of Service November 05, 2020 Assessment & Plan (1) Metabolic encephalopathy: 2nd UTI? Other? COVID-19/flu/RSV negative at admission. Treat UTI. Supportive care. Serial labs. (2) Rhabdomyolysis: 2nd to falls. Improving biochemically. Repeat CK in am. Cont NS fluids. (3) Elevated troponin level: Either 2nd to rhabdomyolysis or from myocardial demand ischemia in setting of falls, UTI, etc. (4) Frequent falls: Likely UTI in setting of advanced PD and dementia. PT, OT. (5) Failure to thrive: (6) Parkinsons disease: Advanced. Cont carbidopa/levodopa at home doses. (7) CKD (chronic kidney disease), stage III: Baseline CrCL <60. BMP am. Hydrating for rhabdomyolysis. (8) Hypertension: BPs normal or low-normal. hold lasix. (9) Hyperlipidemia: not on meds for such (10) Atrial fibrillation: in NSR. cont amiodarone. not on anticoagulation - due to frequent falls? (11) Chronic lower back pain: pt's only complaint during the visit. check pelvis and hip x-rays to r/o fracture. Ct abd/pelvis with healing T11/T12 fractures - subacute? (12) Anemia: Check iron studies, b12, folate am (13) UTI (urinary tract infection): cont cipro IV follow culture (14) DVT prophylaxis: lovenox daily left message for family today on voicemail PT, OT Admission and Anticipated Discharge Date Admission Date: November 04, 2020 Subjective patient was being fed dinner by staff during the visit. appetite fair. after eating small amount she told MA "I'm done." she was quite confused - history and ROS was limited. thought it was 2012. could not tell me where she was. her only complaint was that of pain "in the crack of my back". Review of Systems Review of Systems: Unobtainable due to cognitive status Physical Exam Constitutional: + altered mental status and + frail appearing; no acute distress masked facies ENMT: Mouth: + dry oral mucous membranes Respiratory: normal respiratory effort, lungs clear to auscultation Cardiovascular: Rate/Rhythm: regular rate and regular rhythm Heart Sounds: normal S1 and normal S2 Vessels: posterior tibial pulses present and dorsalis pedis pulses present; no JVD Extremities: no edema Gastrointestinal (Abdomen): normal bowel sounds, soft, nontender, no hepatosplenomegaly Musculoskeletal: Spine: no thoracic spinal tenderness, no lumbar spinal tenderness and no paraspinal tenderness Skin: optifoams over skin tears upper chest; left knee with slight bruise Neurologic: Motor/Sensory: + tremor (with rigidity of all limbs ) Psychiatric: Orientation: alert and oriented to person; + not oriented to place and + not oriented to time Results & Data Results & Data ([facility]) Vital Signs (Past 12 Hours) Vital Signs Temp Pulse Pulse Resp BP Pulse Ox 11/05/20 15:46 36.6 C 67 16 122/51 L 96 11/05/20 15:00 52 L 11/05/20 11:30 36.8 C 88 16 115/74 98 11/05/20 07:26 36.2 C L 51 L 16 102/62 98 Laboratory Results Laboratory Results - last 24 hr 11/04/20 11/05/20 11/05/20 21:33 04:18 04:18 WBC 5.54 RBC 3.19 L Hgb 9.8 L Hct 30.7 L MCV 96.2 MCH 30.7 MCHC 31.9 L RDW Std Deviation 55.7 H RDW Coeff of Elizabeth 15.7 H Plt Count 188 MPV 10.4 Immature Gran % (Auto) 0.4 Neut % (Auto) 75.3 Lymph % (Auto) 16.2 [place] % (Auto) 7.4 Eos % (Auto) 0.7 Baso % (Auto) 0.0 Neut # (Auto) 4.17 Lymph # (Auto) 0.90 L [place] # (Auto) 0.41 Eos # (Auto) 0.04 Baso # (Auto) 0.00 Immature Gran # (Auto) 0.02 Sodium 140 Potassium 4.1 Chloride 109 H Carbon Dioxide 27 Anion Gap 4.0 BUN 43 H Creatinine 0.93 Est Cr Clr Drug Dosing 44.5 Est GFR ( Amer) 65.4 Est GFR (Non-Af Amer) 56.4 BUN/Creatinine Ratio 46.5 H Glucose 87 Calcium 8.6 Total Creatine Kinase 2577 H CK-MB (CK-2) 13.4 H 8.4 H CK/CKMB % Calc 0.5 Troponin I 0.056 H* 0.053 H* PG Care Time/CCT Total # of Minutes Spent Total Time Spent with Patient: Total time spent is greater than 50% in coordination of care (as documented) at patient's floor/unit and/or counseling patient: Coding Level of Care Code 26126 Subseq Hosp Care Lvl 3 Diagnoses Metabolic encephalopathy G93.41 Rhabdomyolysis M62.82 Rhabdomyolysis type: non-traumatic Elevated troponin level R77.8 Frequent falls R29.6 Failure to thrive Parkinsons disease G20 CKD (chronic kidney disease), stage III N18.3 Hypertension I10 Hyperlipidemia E78.5 Atrial fibrillation I48.0 Atrial fibrillation type: paroxysmal Chronic lower back pain M54.5; G89.29 Anemia D64.9 UTI (urinary tract infection) N39.0 DVT prophylaxis Z29.9 (1) Rhabdomyolysis Rhabdomyolysis type: non-traumatic Qualified Code(s): M62.82 - Rhabdomyolysis (2) Atrial fibrillation Atrial fibrillation type: paroxysmal Qualified Code(s): I48.0 - Paroxysmal atrial fibrillation
[2020-11-05] MEDS: AMIODARONE 200 MG TAB PO SCH (20:46)
[2020-11-05] MEDS: traZODone HCL 50 MG TAB PO SCH (20:47)
[2020-11-05] MEDS: ESCITALOPRAM OXALATE 20 MG TAB PO SCH (20:47)
[2020-11-05] MEDS: DONEPEZIL HCL 10 MG TAB PO SCH (20:47)
[2020-11-05] MEDS: clonazePAM 0.5 MG TAB PO SCH (20:50)
--- NOTE | 2020-11-05 20:58 | XRay Report ---
XR hips SIMEON 1v w pelvis CLINICAL HISTORY: multiple falls; eval pelvic/hip Fx. Pelvic and hip pain. COMPARISON STUDY: Right hip 01/21/2019. FINDINGS: L3-S1 posterior decompression and fusion with pedicle screws and rods. The hardware appears intact. Moderate osteoarthritis within the sacroiliac joints and bilateral hips. This remains unchan ged. The bones are osteopenic. Vascular calcifications are noted. There is contrast within the bladde r from the recent CT examination. IMPRESSION: No fracture or dislocation within the pelvis or hips. ACT 112: Negative or not required by law. Electronically signed by: Mat Hall M.D. 11/05/2020 8:57 PM
[2020-11-06] MEDS: SODIUM CHLORIDE 0.9% 1000ML 1,000 ML IV SCH ×2 (03:03→21:32)
[2020-11-06 06:31] LABS: Hemoglobin 9.3 g/dL (12.0-16.0); Mean Corpuscular Hemoglobin 30.3 pg (25-34); Mean Corpuscular Volume 97.7 fL (80-100); Mean Platelet Volume 10.6 fL (7.4-10.4); Platelet Count 188 K/uL (130-400); RDW Coefficient of Variation 15.8 % (11.5-14.5); RDW Standard Deviation 56.1 fL (36.4-46.3); Red Blood Count 3.07 M/uL (4.2-5.4); White Blood Count 4.15 K/uL (4.8-10.8)
[2020-11-06 07:14] LABS: BUN Creatinine Ratio 34.1 (10-20); Calcium 8.3 mg/dl (8.5-10.1); Creatinine Clr Calc Pharmacy 49.3 ml/min; Est GFR (Non-African American) 63.8; Potassium 3.7 mmol/L (3.5-5.1)
[2020-11-06 07:20] LABS: Ferritin 380.8 ng/ml (8-388)
[2020-11-06] MEDS: ENOXAPARIN INJ 30 MG/0.3 ML SYR SQ SCH (08:10)
[2020-11-06] MEDS: ERGOCALCIFEROL 50,000 UNITS 1250 MCG CAP PO SCH (08:11)
[2020-11-06] MEDS: FAMOTIDINE 40 MG TABLET PO SCH (08:11)
[2020-11-06] MEDS: CARBIDOPA/LEVODOPA 50/200MG EXT REL TAB PO SCH ×2 (08:11→20:15)
[2020-11-06] MEDS: MEMANTINE HCL 10 MG TAB PO SCH ×2 (08:12→20:13)
[2020-11-06] MEDS: CARBIDOPA/LEVODOPA 25/100MG TAB PO SCH ×4 (08:12→20:15)
[2020-11-06] MEDS: COLLAGENASE OINT 30 GM TUBE TOP SCH (08:12)
[2020-11-06] MEDS: ADVANCED PROBIOTIC 1250 MG CAPSULE PO SCH (10:42)
[2020-11-06] MEDS: cephALEXin 500 MG CAP PO SCH ×2 (10:42→20:14)
[2020-11-06] MEDS: ASPIRIN 325 MG ECTAB PO SCH (17:24)
[2020-11-06] MEDS: AMIODARONE 200 MG TAB PO SCH (20:12)
[2020-11-06] MEDS: traZODone HCL 50 MG TAB PO SCH (20:13)
[2020-11-06] MEDS: ESCITALOPRAM OXALATE 20 MG TAB PO SCH (20:13)
[2020-11-06] MEDS: DONEPEZIL HCL 10 MG TAB PO SCH (20:13)
[2020-11-06] MEDS: clonazePAM 0.5 MG TAB PO SCH (20:16)
--- NOTE | 2020-11-06 20:46 | Hospitalist Progress Note ---
Date of Service November 06, 2020 Assessment & Plan (1) Metabolic encephalopathy: ongoing. 2nd UTI? but would have expected improvement by this point - has had several days of appropriate IV/PO abx. Other? COVID-19/flu/RSV negative at admission. Repeated COVID-19 test tonight - negative. CT head at admission neg for acute findings. Treat UTI. Supportive care. Serial labs. (2) Rhabdomyolysis: 2nd to falls. Improving biochemically. CPK nearly normal today. Cont NS fluids. (3) Elevated troponin level: Either 2nd to rhabdomyolysis or from myocardial demand ischemia in setting of falls, UTI, etc. (4) Frequent falls: Likely UTI in setting of advanced PD and dementia. PT, OT. B12 level in the recent past wnl. (5) Failure to thrive: ongoing severe no improvement since admission check sed rate/crp consider procal as well consider MRI brain suspect that FTT is due to advanced PD and dementia (6) Parkinsons disease: Advanced. Cont carbidopa/levodopa at home doses. (7) CKD (chronic kidney disease), stage III: Baseline CrCL <60. Cr stable today. Hydrating for rhabdomyolysis. (8) Hypertension: BPs normal or low-normal. hold lasix. (9) Hyperlipidemia: not on meds for such (10) Atrial fibrillation: in NSR. cont amiodarone. not on anticoagulation - due to frequent falls? TSH wnl. (11) Chronic lower back pain: pt's only complaint last 48 hours. checked pelvis and hip x-rays to r/o fracture -- negative for such. Ct abd/pelvis with healing T11/T12 fractures -- suspect subacute or chronic. (12) Anemia: iron studies, b12, folate - acceptable anemia of chronic disease? stool heme negative (13) UTI (urinary tract infection): stop cipro IV change to keflex plan 7 days of IV/PO abx (14) DVT prophylaxis: lovenox daily left message for family today on voicemail once again left message yesterday as well PT, OT but suspect she will not be able to participate Admission and Anticipated Discharge Date Admission Date: November 04, 2020 Subjective tele stable overnight patient sleeping upon arrival woke up when I called her name very confused; didn't know she was in hospital; couldn't tell me date or year couldn't provide any meaningful history or ROS nursing flowsheets -- "bites and sips" for all 3 meals today. very weak. Review of Systems Review of Systems: Unobtainable due to cognitive status Physical Exam Constitutional: + ill appearing, + altered mental status and + frail appearing; no acute distress ENMT: Mouth: + dry oral mucous membranes Respiratory: normal respiratory effort, lungs clear to auscultation Cardiovascular: Rate/Rhythm: regular rate and regular rhythm Heart Sounds: normal S1 and normal S2 Vessels: posterior tibial pulses present and dorsalis pedis pulses present; no JVD Extremities: no edema Gastrointestinal (Abdomen): normal bowel sounds, soft, nontender, no hepatosplenomegaly Skin: multiple optifoams on upper chest Neurologic: Motor/Sensory: + tremor (with rigidity of all limbs ) Psychiatric: Orientation: alert and oriented to person; + not oriented to place and + not oriented to time Results & Data Results & Data ([facility]) Vital Signs (Past 12 Hours) Vital Signs Temp Pulse Pulse Resp BP Pulse Ox 11/06/20 19:29 37.1 C 60 17 129/67 97 11/06/20 15:30 36.4 C L 56 L 14 121/69 98 11/06/20 15:00 64 11/06/20 11:48 36.2 C L 62 20 113/47 L 96 Laboratory Results Laboratory Results - last 24 hr 11/06/20 11/06/20 11/06/20 05:39 05:39 05:39 WBC 4.15 L RBC 3.07 L Hgb 9.3 L Hct 30.0 L MCV 97.7 MCH 30.3 MCHC 31.0 L RDW Std Deviation 56.1 H RDW Coeff of Elizabeth 15.8 H Plt Count 188 MPV 10.6 H Sodium 141 Potassium 3.7 Chloride 112 H Carbon Dioxide 24 Anion Gap 5.0 BUN 28 H Creatinine 0.84 Est Cr Clr Drug Dosing 49.3 Est GFR ( Amer) 74.0 Est GFR (Non-Af Amer) 63.8 BUN/Creatinine Ratio 34.1 H Glucose 85 Calcium 8.3 L Iron 76 Transferrin 121 L Transferrin % Sat 45 Ferritin 380.8 Total Creatine Kinase 623 H Folate 9.70 Stool Occult Bld Scrn COVID-19 Eval Order SARS-CoV-2 (PCR) Influenza Type A (PCR) Influenza Type B (PCR) RSV (RT-PCR) 11/06/20 11/06/20 11/06/20 18:30 20:05 20:05 WBC RBC Hgb Hct MCV MCH MCHC RDW Std Deviation RDW Coeff of Elizabeth Plt Count MPV Sodium Potassium Chloride Carbon Dioxide Anion Gap BUN Creatinine Est Cr Clr Drug Dosing Est GFR ( Amer) Est GFR (Non-Af Amer) BUN/Creatinine Ratio Glucose Calcium Iron Transferrin Transferrin % Sat Ferritin Total Creatine Kinase Folate Stool Occult Bld Scrn Negative COVID-[address] Eval [address] CovFluRsv at [facility] SARS-CoV-2 (PCR) Pending Influenza Type A (PCR) Pending Influenza Type B (PCR) Pending RSV (RT-PCR) Pending PG Care Time/CCT Total # of Minutes Spent Total Time Spent with Patient: Total time spent is greater than 50% in coordination of care (as documented) at patient's floor/unit and/or counseling patient: Coding Level of Care Code 53276 Subseq Hosp Care Lvl 2 Diagnoses Metabolic encephalopathy G93.41 Rhabdomyolysis M62.82 Rhabdomyolysis type: non-traumatic Elevated troponin level R77.8 Frequent falls R29.6 Failure to thrive Parkinsons disease G20 CKD (chronic kidney disease), stage III N18.3 Hypertension I10 Hyperlipidemia E78.5 Atrial fibrillation I48.0 Atrial fibrillation type: paroxysmal Chronic lower back pain M54.5; G89.29 Anemia D64.9 UTI (urinary tract infection) N39.0 DVT prophylaxis Z29.9 (1) Atrial fibrillation Atrial fibrillation type: paroxysmal Qualified Code(s): I48.0 - Paroxysmal atrial fibrillation (2) Rhabdomyolysis Rhabdomyolysis type: non-traumatic Qualified Code(s): M62.82 - Rhabdomyolysis
[2020-11-06 21:02] LABS: Influenza A virus by PCR Negative (Neg); Influenza B virus by PCR Negative (Neg); RSV by PCR Negative (Neg); SARS CoV2 RNA(COVID-19) InHosp NEGATIVE (Negative)
[2020-11-07 06:53] LABS: BUN Creatinine Ratio 26.5 (10-20); Calcium 8.3 mg/dl (8.5-10.1); Est GFR (African American) 77.3; Est GFR (Non-African American) 66.7; Potassium 3.9 mmol/L (3.5-5.1)
[2020-11-07] MEDS: ADVANCED PROBIOTIC 1250 MG CAPSULE PO SCH (08:40)
[2020-11-07] MEDS: MEMANTINE HCL 10 MG TAB PO SCH ×2 (08:40→20:32)
[2020-11-07] MEDS: FAMOTIDINE 40 MG TABLET PO SCH (08:40)
[2020-11-07] MEDS: CARBIDOPA/LEVODOPA 25/100MG TAB PO SCH ×4 (08:41→20:31)
[2020-11-07] MEDS: cephALEXin 500 MG CAP PO SCH ×2 (08:41→20:32)
[2020-11-07] MEDS: CARBIDOPA/LEVODOPA 50/200MG EXT REL TAB PO SCH ×2 (08:41→20:33)
[2020-11-07] MEDS: ENOXAPARIN INJ 30 MG/0.3 ML SYR SQ SCH (08:42)
[2020-11-07] MEDS: COLLAGENASE OINT 30 GM TUBE TOP SCH (09:50)
--- NOTE | 2020-11-07 10:59 | Hospitalist Progress Note ---
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 Due to copious # of falls over the last few months her xarelto was stopped as an outpatient. Thus, strokes are likely due to thrombus formation in the setting of a.fib with subsequent embolization. This is a very difficult decision about resuming anticoagulation. She has been failing to thrive at home, has had numerous falls, and her fall risk will remain due to advanced PD and advanced dementia. I spoke with pt's daughter this am on phone (before the MRI) and then once MRI returned I tried to call her again without success. Will call her in am to discuss whether to resume anticoagulation. It will be a discussion of risk vs benefit. In meantime, will start heparin drip while waiting to talk with daughter. Neuro consult in am. Pt, Ot, speech. For completeness sake likely needs carotids, echo, etc. (2) Metabolic encephalopathy: likely 2nd to b/l strokes and UTI. modestly improved today - more awake, more alert, but still not oriented well. (3) Rhabdomyolysis: 2nd to falls. Improving biochemically. CPK nearly normal yesterday. Cont NS at 50cc/hr. (4) Elevated troponin level: Either 2nd to rhabdomyolysis or from myocardial demand ischemia in setting of falls, UTI, etc. (5) Frequent falls: Likely UTI in setting of advanced PD and dementia. PT, OT. B12 level in the recent past wnl. (6) Failure to thrive: ongoing severe sed rate wnl crp minimally elevated MRI brain w/ bilateral strokes - likely accounts for some of her symptoms last 10 days at home consider procal as well suspect that FTT is due to advanced PD and dementia (7) Parkinsons disease: Advanced. Cont carbidopa/levodopa at home doses. (8) CKD (chronic kidney disease), stage III: Baseline CrCL <60. Cr stable today. Hydrating for rhabdomyolysis. (9) Hypertension: BPs normal or low-normal. hold lasix. (10) Hyperlipidemia: not on meds for such (11) Atrial fibrillation: in NSR. cont amiodarone. not on anticoagulation - due to frequent falls TSH wnl. (12) Chronic lower back pain: checked pelvis and hip x-rays to r/o fracture -- negative for such. Ct abd/pelvis with healing T11/T12 fractures -- suspect subacute or chronic. (13) Anemia: iron studies, b12, folate - acceptable anemia of chronic disease? stool heme negative (14) UTI (urinary tract infection): stopped cipro IV changed to keflex plan 7 days of IV/PO abx (15) DVT prophylaxis: stop lovenox start heparin drip discussed plan of care including getting MRI with daughter this am spent about 15 minutes on phone with her she confirmed her mother is DNR she understands that her mother is declining and likely cannot return home attempted to update her daughter once MRI findings returned -- no answer, left message, will call again in am Admission and Anticipated Discharge Date Admission Date: November 04, 2020 Subjective patient a little more awake than yesterday. knew she was in hospital but could not tell me the year/date/etc. still very confused; stated "I don't want surgery." (?) tele - a.fib, rates controlled. unable to obtain other reliable history or ROS. Review of Systems Review of Systems: Unobtainable due to cognitive status Physical Exam Constitutional: + ill appearing, + altered mental status and + frail appearing; no acute distress ENMT: Mouth: + dry oral mucous membranes (but improved ) Respiratory: normal respiratory effort, lungs clear to auscultation Cardiovascular: Rate/Rhythm: regular rate and regular rhythm Heart Sounds: normal S1 and normal S2 Vessels: posterior tibial pulses present and dorsalis pedis pulses present; no JVD Extremities: no edema Gastrointestinal (Abdomen): normal bowel sounds, soft, nontender, no hepatosplenomegaly Neurologic: Motor/Sensory: + tremor (with rigidity of all limbs ) Psychiatric: Orientation: alert, oriented to person and oriented to place; + not oriented to time Results & Data Results & Data ([facility]) Vital Signs (Past 12 Hours) Vital Signs Temp Pulse Pulse Resp BP Pulse Ox 11/07/20 07:40 36.9 C 95 H 16 124/79 95 11/07/20 07:27 54 L 11/07/20 03:52 36.7 C 86 17 107/63 90 11/07/20 03:15 62 11/06/20 23:08 36.3 C L 74 17 100/49 L 94 Laboratory Results Laboratory Results - last 24 hr 11/06/20 11/06/20 11/06/20 18:30 20:05 20:05 ESR Sodium Potassium Chloride Carbon Dioxide Anion Gap BUN Creatinine Est Cr Clr Drug Dosing Est GFR ( Amer) Est GFR (Non-Af Amer) BUN/Creatinine Ratio Glucose Calcium C-Reactive Protein Stool Occult Bld Scrn Negative COVID-19 Eval Order CovFluRsv at [facility] SARS-CoV-2 (PCR) NEGATIVE Influenza Type A (PCR) Negative Influenza Type B (PCR) Negative RSV (RT-PCR) Negative 11/07/20 11/07/20 11/07/20 05:29 05:29 05:29 ESR 15 Sodium 142 Potassium 3.9 Chloride 113 H Carbon Dioxide 26 Anion Gap 3.0 BUN 21 H Creatinine 0.81 Est Cr Clr Drug Dosing 51.0 Est GFR ( Amer) 77.3 Est GFR (Non-Af Amer) 66.7 BUN/Creatinine Ratio 26.5 H Glucose 95 Calcium 8.3 L C-Reactive Protein 4.57 H Stool Occult Bld Scrn COVID-19 Eval Order SARS-CoV-2 (PCR) Influenza Type A (PCR) Influenza Type B (PCR) RSV (RT-PCR) PG Care Time/CCT Total # of Minutes Spent Total Time Spent with Patient: Total time spent is greater than 50% in coordination of care (as documented) at patient's floor/unit and/or counseling patient: Coding Level of Care Code 54582 Subseq Hosp Care Lvl 3 Diagnoses Embolic stroke I63.40 Precerebral and cerebral artery: unspecified cerebral artery Metabolic encephalopathy G93.41 Rhabdomyolysis M62.82 Rhabdomyolysis type: non-traumatic Elevated troponin level R77.8 Frequent falls R29.6 Failure to thrive Parkinsons disease G20 CKD (chronic kidney disease), stage III N18.3 Hypertension I10 Hyperlipidemia E78.5 Atrial fibrillation I48.0 Atrial fibrillation type: paroxysmal Chronic lower back pain M54.5; G89.29 Anemia D64.9 UTI (urinary tract infection) N39.0 DVT prophylaxis Z29.9 (1) Atrial fibrillation Atrial fibrillation type: paroxysmal Qualified Code(s): I48.0 - Paroxysmal atrial fibrillation (2) Rhabdomyolysis Rhabdomyolysis type: non-traumatic Qualified Code(s): M62.82 - Rhabdomyolysis (3) Embolic stroke Precerebral and cerebral artery: unspecified cerebral artery Qualified Code(s): I63.40 - Cerebral infarction due to embolism of unspecified cerebral artery
[2020-11-07] MEDS: ASPIRIN 325 MG ECTAB PO SCH (17:04)
--- NOTE | 2020-11-07 19:09 | Magnetic Resonance Report ---
MRI OF THE BRAIN WITHOUT CONTRAST CLINICAL HISTORY: Atrial fibrillation. History of Parkinson's. History of trauma. Evaluate for stroke or acute intracranial hemorrhage. COMPARISON STUDY: Noncontrast head CT dated 11/04/2020, MRI the brain dated 09-11 FINDINGS: Sagittal T1, axial diffusion, proton density and T2 weighted axial, coronal FLAIR, and axial T1-weigh waylon images were acquired. No intra or extra-axial mass lesions are visualized There are a few scattered tiny foci of restricted water diffusion. These are located within the right central sourav, right temporal lobe, left insular cortex, and left frontal vertex. Several these demon strate increased T2 and FLAIR signal. Tiny subacute infarcts are suspected. There is no evidence of ventricular dilatation. Proton density T2-weighted and FLAIR images reveal scattered foci of increased T2 signal within the w cristi matter, likely on a small vessel basis. There are no abnormal flow voids. IMPRESSION: 1. There are a few scattered tiny foci of restricted water diffusion as described above. These are ferreira spicious for subacute infarcts, likely on an embolic etiology given the distribution.. 2. No evidence of intracranial mass on this noncontrast study 3. White matter disease likely small vessel ischemic basis ACT 112: Negative or not required by law. Electronically signed by: Norris Jasso M.D. 11/07/2020 7:07 PM
[2020-11-07] MEDS ORDERED: Heparin IV Standard *NO* Bolus IV SCH (19:44)
[2020-11-07] MEDS: SODIUM CHLORIDE 0.9% 1000ML 1,000 ML IV SCH (20:31)
[2020-11-07 20:32] LABS: Eosinophils # (auto) 0.06 K/uL (0-0.5); Eosinophils % (auto) 1.4 %; Hematocrit (blood only) 32.2 % (37-47); Immature Granulocytes # (auto) 0.01 K/uL (0.00-0.02); Immature Granulocytes % (auto) 0.2 %; Lymphocytes # (auto) 0.39 K/uL (1.2-3.4); Lymphocytes % (auto) 9.3 %; Mean Corpuscular Hemoglobin 30.3 pg (25-34); Mean Corpuscular Volume 97.6 fL (80-100); Mean Platelet Volume 10.2 fL (7.4-10.4); Monocytes # (auto) 0.25 K/uL (0.11-0.59); Neutrophils # (auto) 3.49 K/uL (1.4-6.5); Neutrophils % (auto) 83.1 %; Platelet Count 185 K/uL (130-400); RDW Coefficient of Variation 15.4 % (11.5-14.5); RDW Standard Deviation 54.5 fL (36.4-46.3)
[2020-11-07] MEDS: ESCITALOPRAM OXALATE 20 MG TAB PO SCH (20:32)
[2020-11-07] MEDS: DONEPEZIL HCL 10 MG TAB PO SCH (20:32)
[2020-11-07] MEDS: AMIODARONE 200 MG TAB PO SCH (20:32)
[2020-11-07] MEDS: traZODone HCL 50 MG TAB PO SCH (20:32)
[2020-11-07] MEDS: clonazePAM 0.5 MG TAB PO SCH (20:42)
[2020-11-07 20:43] LABS: Partial Thromboplastin Time 28.7 Seconds (21.0-31.0); Prothrombin Time 10.4 Seconds (9.0-12.0)
[2020-11-07] MEDS: HEPARIN SODIUM/DEXTROSE 25,000 UNITS/500 ML BAG IV SCH (21:58)
[2020-11-07 22:09] LABS: Mean Corpuscular Hgb Conc 31.1 g/dL (32-36)
[2020-11-08 04:38] LABS: Partial Thromboplastin Ratio 1.8
[2020-11-08 04:41] LABS: Partial Thromboplastin Time 51.3 Seconds (21.0-31.0)
[2020-11-08] MEDS: cephALEXin 500 MG CAP PO SCH ×2 (08:39→20:42)
[2020-11-08] MEDS: CARBIDOPA/LEVODOPA 50/200MG EXT REL TAB PO SCH ×2 (08:39→20:41)
[2020-11-08] MEDS: COLLAGENASE OINT 30 GM TUBE TOP SCH (08:40)
[2020-11-08] MEDS: FAMOTIDINE 40 MG TABLET PO SCH (08:40)
[2020-11-08] MEDS: CARBIDOPA/LEVODOPA 25/100MG TAB PO SCH ×4 (08:40→20:41)
[2020-11-08] MEDS: MEMANTINE HCL 10 MG TAB PO SCH ×2 (08:40→20:42)
[2020-11-08] MEDS: ADVANCED PROBIOTIC 1250 MG CAPSULE PO SCH (08:40)
[2020-11-08] MEDS: SODIUM CHLORIDE 0.9% 1000ML 1,000 ML IV SCH ×2 (08:41→08:48)
[2020-11-08 09:05] LABS: Eosinophils # (auto) 0.08 K/uL (0-0.5); Eosinophils % (auto) 2.1 %; Hematocrit (blood only) 29.8 % (37-47); Hemoglobin 9.2 g/dL (12.0-16.0); Lymphocytes # (auto) 0.37 K/uL (1.2-3.4); Lymphocytes % (auto) 9.8 %; Mean Corpuscular Hemoglobin 29.9 pg (25-34); Mean Corpuscular Hgb Conc 30.9 g/dL (32-36); Mean Corpuscular Volume 96.8 fL (80-100); Monocytes # (auto) 0.32 K/uL (0.11-0.59); Monocytes % (auto) 8.5 %; Neutrophils # (auto) 3.01 K/uL (1.4-6.5); Neutrophils % (auto) 79.6 %; Platelet Count 166 K/uL (130-400); RDW Coefficient of Variation 15.4 % (11.5-14.5); RDW Standard Deviation 54.5 fL (36.4-46.3); Red Blood Count 3.08 M/uL (4.2-5.4); White Blood Count 3.78 K/uL (4.8-10.8)
[2020-11-08 09:35] LABS: BUN Creatinine Ratio 32.2 (10-20); Calcium 7.9 mg/dl (8.5-10.1); Est GFR (African American) 96.5; Est GFR (Non-African American) 83.2; Potassium 3.8 mmol/L (3.5-5.1)
[2020-11-08 09:41] LABS: C Reactive Protein 3.72 mg/dl (0-0.29)
--- NOTE | 2020-11-08 10:30 | Neurology Consultation ---
Date of Consultation November 08, 2020 Assessment & Plan (1) Embolic stroke: (2) Parkinsons disease: (3) Dementia: (4) Rhabdomyolysis: Patient has acute embolic stroke, consisting of a few scattered small acute events in multiple vascular distributions bilaterally. This is likely embolic from the heart. She has atrial fibrillation and was on anticoagulation but this was stopped in early September because of her multiple falls and risk of bleeding. Patient has a history of advanced Parkinson's disease and dementia. She has been followed closely by Dr. Alan who feels that she is at relative maximum medical treatment for these 2 conditions. Patient had some elevated CK from rhabdomyolysis on admission which has cleared. This is likely secondary to falls. Recommendations: 1. anticoagulant can be re-initiated. The risk of stroke outweighs the fall risk and she needs physical and occupational therapy to help come up with the planned to keep her from falling. She will have to be chair bound and not ambulate on her own any more. 2. Consider social service consult for placement. 3. Keep Parkinson's medication and dementia medication the same for now. 4. I see no need for additional neurologic testing at this time. I discussed the case with Dr. Beckett and the RN at bedside. History of Present Illness Reason for Consultation: Patient is a an 85-year-old, who I was asked to see at the request of Dr. Beckett, for neurologic evaluation regarding acute stroke and other issues. Requesting Physician: Dr. Beckett Attending Physician: Niraj Beckett History of Present Illness patient for saw Dr. Alan in February of 2013 for tremor. She was diagnosed with Parkinson's disease and has progressed over the last 7 years. She is on a complicated treatment regimen of carbidopa / levodopa and was last seen by Dr. Alan in June of 2020. she has a dementia and anxiety disorder with the Parkinson's disease and according to his last note she is on maximum medical treatment for these conditions. The patient has a history of atrial fibrillation and was on anticoagulant but this had been stopped in early September of 2020 after discussion (with primary care physician and the patient's daughter) of falling and bleeding risks with the medication. She came into the emergency room November 04 because of falls, generalized weakness and confusion. CK was elevated on admission at 3989. on November 06 it was down to 623. This was presumed to be rhabdomyolysis from the falls and she is improving while in the hospital. MRI of the brain obtained November 07 showed a few tiny scattered acute strokes consistent with an embolic pattern. There was [id number] old small vessel ischemic disease as well. I reviewed these films. Patient was put on heparin. Today she has no pain and feels "pretty good". Blood pressure is 120/57 and she is afebrile. Allergies Allergy/AdvReac Type Severity Reaction Status Date / Time succinylcholine Allergy Severe PSEUDO-CHOLINESTERASE Verified 11/04/20 15:44 DEFICIENCY Home Medications Medication Instructions Recorded Confirmed Type Artificial Tears (kathy/min) 1 applic OPB UD PRN 11/01/18 11/04/20 History polyethylene glycol 3350 [Miralax] 17 g PO DAILY PRN 11/01/18 11/04/20 History memantine 10 mg tablet 10 mg PO BID #180 tab 05/31/20 11/04/20 Rx donepezil 10 mg tablet 10 mg PO HS 90 Days #90 tab 06/22/20 11/04/20 Rx collagenase clostridium histo. 250 1 applic TOPICAL DAILY #30 g 08/16/20 11/04/20 Rx unit/gram topical ointment carbidopa 25 mg-levodopa 100 mg 3 tab PO QID #1080 tab 08/17/20 11/04/20 Rx tablet carbidopa ER 50 mg-levodopa 200 mg 1 tab PO BID 90 Days #180 tab 08/21/20 11/04/20 Rx tablet,extended release carbidopa 25 mg-levodopa 250 mg 1 tab PO TID PRN 90 Days #270 tab 08/29/20 11/04/20 Rx disintegrating tablet cholecalciferol (vitamin D3) 1,250 mcg PO TU 08/30/20 11/04/20 History famotidine 40 mg PO QAM 08/30/20 11/04/20 History miscellaneous medical supply 1 ea .ROUTE ONCE #1 ea 09/14/20 09/25/20 Rx latex gloves #24 ea 09/25/20 09/25/20 Rx wrist splint #2 ea 09/25/20 09/25/20 Rx clonazepam 0.5 mg disintegrating 0.5 mg PO HS 30 Days #30 tab 10/08/20 11/04/20 Rx tablet alendronate 70 mg PO SA 11/04/20 11/04/20 History amiodarone 200 mg PO DAILY@199911/04/20 11/04/20 History aspirin 325 mg PO DAILY@1800 11/04/20 11/04/20 History escitalopram oxalate 20 mg PO DAILY@199911/04/20 11/04/20 History furosemide 20 mg PO QAM 11/04/20 11/04/20 History lorazepam 0.5 mg PO DAILY@1800 PRN 11/04/20 11/04/20 History potassium chloride 20 meq PO DAILY@1400 11/04/20 11/04/20 History trazodone 50 mg tablet 25 mg PO HS #15 tab 11/05/20 Rx Patient History Medical History Anxiety Arthritis Atrial fibrillation Bradycardia Chronic lower back pain Constipation Dementia Gastro-esophageal reflux Hearing loss History of Clostridioides difficile colitis Hyperlipidemia Hyperparathyroidism Hypertension Macular degeneration Mitral regurgitation Neuropathy Osteoporosis Parkinsons disease Spinal stenosis of lumbar region with radiculopathy Urinary incontinence Venous insufficiency Venous stasis dermatitis Surgical History History of abdominal surgery REMOVED A TUMOR WITH A BLEEDING ULCER(BENIGN) History of cataract surgery History of knee replacement, total History of lumbar fusion Hx laparoscopic cholecystectomy (05/09/20) Laparoscopic Cholecystectomy Dr. Goddard 05/16/20 Hx of varicose vein ligation Status post repair of nerve NEUROPLASTY DECOMPRESSION MEDIAN NERVE AT CARPAL TUNNEL, LEFT-HAND Family History Mother Cancer Brain cancer Hypertension Brother Colon cancer Heart disease Colorectal cancer Father Myocardial infarction Hypertension Sister Colorectal cancer Sister Colorectal cancer Family/Other Breast cancer Daughter Thyroid cancer Denies family history of Ovarian cancer Prostate cancer Social History Smoking Status: Never smoker Second Hand Exposure: No; Hx Alcohol Use: No Hx Substance Use: No Preferred Language: Afghan Communication Ability: Impaired Visual Impairment: Limited Hearing Ability: Use of Hearing Aid Greige Goods Examiner Required: No Beliefs That Will Affect Care: None marital status: Current Living Situation: Family Current Living Situation Comment: lives with daughter at home current occupational status: retired 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 Other Information That Helps Us Care for You: No Feels Safe at Home: Yes Safety Concerns: Feels Safe At This Time caffeine: Yes Dental Care, Regularly: No Physical Activity Frequency: Does not Exercise Seatbelt Use: always Sunscreen Use: No Assistive Devices: None Review of Systems Constitutional: + fatigue and + weakness; no fever Eyes: no diplopia, no eye pain and no worsening vision Ear, Nose, Mouth, Throat: + hearing loss; no ear pain, no tinnitus, no dizziness, no hoarseness and no dysphagia Respiratory: no cough and no dyspnea Cardiovascular: no chest pain, no palpitations and no lightheadedness Gastrointestinal: no abdominal pain, no nausea and no vomiting Genitourinary: no dysuria, no urinary frequency and no urinary incontinence Musculoskeletal: no back pain, no neck pain, no radicular pain, no joint pain and no myalgia Integumentary: no rash and no lesions Neurologic: + gait abnormality, + generalized weakness and + abnormal movements; no localized weakness, no tingling, no numbness, no tremor(s), no headache(s), no abnormal speech, no confusion and no memory loss Psychiatric: no depression, no irritability, no anxiety, no difficulty concentrating, no confusion and no hallucinations Endocrine: no fatigue and no flushing Hematologic / Lymphatic: no easy bleeding and no easy bruising Allergy / Immunological: no urticaria and no problem reported Exam (Neuro) Physical Exam: The patient is right-handed. The patient is awake, alert, and attentive. Speech is normal without any aphasia or dysarthria. Patient has significant memory deficits and is oriented to name but not her age ( "89" ), day, month ( "December"), year ("2003"), or president. she has significant memory problems for long and short-term. The discs are sharp with positive venous pulsations bilaterally. There are no exudates, hemorrhages, or blood vessel changes seen. Pupils are 3 mm bilaterally and reactive to light. Extraocular eye muscles are intact without nystagmus. Visual acuity and visual bonner seem normal grossly to confrontation. There are no deficits to sensation in the face in all 3 distributions of the fifth cranial nerve bilaterally. Corneal reflexes are positive bilaterally. Facial strength and symmetry was normal bilaterally. Hearing seems normal to whisper and finger rub bilaterally. Palate moves well without asymmetry. There is normal sternocleidomastoid and trapezius (shoulder shrug) strength bilaterally. Tongue is midline with good strength bilaterally. She has a mild masklike face and has moderate bradykinesia in general. Neck has a full range of motion without discomfort. There are no cervical bruits bilaterally. There are no cranial or ocular bruits. Heart is without murmur. There is a regular rhythm and rate. Cervical, thoracic, and lumbar spine are nontender to palpation. Gait His not test and stance sitting up in bed is poor. With outstretched arms there is no drift. There are no resting, postural, or action tremors. There is no ataxia with finger to nose testing. There is decreased facility in the hands. No other abnormal involuntary movements are noted. Motor strength is 4/5 diffusely in the arms bilaterally including deltoids, biceps, triceps, brachioradialis, wrist flexors and extensors, brinell tester, and intrinsic hand muscles. Motor strength is 5/5 diffusely in the legs bilaterally including hip flexors, quadriceps, hamstrings, gastrocnemius, tibialis anterior, tibialis posterior, and Peroneii muscles. strength seems symmetrical in the limbs and there is distal atrophy and small muscles in the hands and feet. There is significant cogwheel rigidity in the upper extremities more than the legs. Sensory examination is intact to touch and pin throughout all 4 limbs diffusely. Reflexes are 0/4 in the biceps, triceps, brachioradialis, quadriceps, and Achilles tendons bilaterally. There is no clonus bilaterally. Toes are downgoing with plantar stimulation bilaterally. Peripheral pulses are present and of normal quality distally in all 4 limbs. There is no peripheral edema noted in the limbs. Results & Data ([facility]) Vital Signs (Past 12 Hours) Vital Signs Temp Pulse Pulse Resp BP Pulse Ox 11/08/20 08:04 37.2 C 49 L 20 120/57 L 97 11/08/20 08:00 49 L 120/57 L 97 11/08/20 07:40 46 L 11/08/20 03:30 36.5 C 72 18 125/56 L 93 11/08/20 02:11 50 L 11/07/20 23:09 36.3 C L 76 18 127/52 L 92 PG Care Time/CCT Total # of Minutes Spent Total Time Spent with Patient: Total time spent is greater than 50% in coordination of care (as documented) at patient's floor/unit and/or counseling patient: Coding Level of Care Code 42721 Initial Inpt Care Lvl 3 Diagnoses Embolic stroke I63.40 Precerebral and cerebral artery: unspecified cerebral artery Parkinsons disease G20 Dementia F03.90 Dementia behavioral disturbance: without behavioral disturbance Dementia type: unspecified type Rhabdomyolysis M62.82 Rhabdomyolysis type: non-traumatic (1) Embolic stroke Precerebral and cerebral artery: unspecified cerebral artery Qualified Code( s): I63.40 - Cerebral infarction due to embolism of unspecified cerebral artery (2) Dementia Dementia behavioral disturbance: without behavioral disturbance Dementia type: unspecified type Qualified Code(s): F03.90 - Unspecified dementia without behavioral disturbance (3) Rhabdomyolysis Rhabdomyolysis type: non-traumatic Qualified Code(s): M62.82 - Rhabdomyolysis
--- NOTE | 2020-11-08 13:39 | Hospitalist Progress Note ---
Date of Service November 08, 2020 Assessment & Plan (1) Embolic stroke: MRI brain with b/l punctate strokes c/w embolic etiology. Due to copious # of falls over the last few months her xarelto was stopped as an outpatient about 1 month ago per daughter. Thus, strokes are likely due to thrombus formation in the setting of a.fib with subsequent embolization. This is a very difficult decision about resuming anticoagulation. She has been failing to thrive at home, has had numerous falls, and her fall risk will remain due to advanced PD and advanced dementia. I spoke with pt's daughter, Mary, by phone this am. Discussed MRI findings, likely embolic etiology of strokes with being off x arelto, and options for care moving forward. Explained that this is difficult decision and she voiced understanding. She wanted to discuss goals of care with her siblings before making any decision. I offered palliative care consult and she agreed. Moving forward - we could transition to palliative/hospice and defer on anticoagulation OR we could continue routine care and restart anticoagulation. Other option is ongoing routine care but NOT starting back xarelto. While trying to refine goals of care will continue heparin drip. Neuro consult appreciated. Pt, Ot, speech. Defer on additional w/u as we may be transitioning to palliative care. (2) Metabolic encephalopathy: likely 2nd to b/l strokes and UTI. about the same as most past visits. (3) Rhabdomyolysis: 2nd to falls. Improving biochemically. CPK nearly normal on last check. Stop IVF. (4) Elevated troponin level: Either 2nd to rhabdomyolysis or from myocardial demand ischemia in setting of falls, UTI, etc. (5) Frequent falls: Likely UTI in setting of advanced PD and dementia. PT, OT. B12 level in the recent past wnl. (6) Failure to thrive: ongoing severe sed rate wnl crp minimally elevated MRI brain w/ bilateral strokes - likely accounts for some of her symptoms last 10 days at home suspect that FTT is due to advanced PD and dementia with superimposed strokes other than UTI no other signs/symptoms of infectious process (7) Parkinsons disease: Advanced. Cont carbidopa/levodopa at home doses. (8) CKD (chronic kidney disease), stage III: Baseline CrCL <60. Cr stable today. stop IVF (9) Hypertension: BPs normal or low-normal. hold lasix. (10) Hyperlipidemia: not on meds for such (11) Atrial fibrillation: in NSR. cont amiodarone. not on anticoagulation - due to frequent falls - see discussion above in "embolic stroke" TSH wnl. (12) Chronic lower back pain: checked pelvis and hip x-rays to r/o fracture -- negative for such. Ct abd/pelvis with healing T11/T12 fractures -- suspect subacute or chronic. (13) Anemia: iron studies, b12, folate - acceptable anemia of chronic disease? stool heme negative (14) UTI (urinary tract infection): stopped cipro IV changed to keflex day #5 of abx today plan 7 days of IV/PO abx (15) DVT prophylaxis: heparin drip care d/w Dr Ortiz from neuro care extensively discussed with Mary, pt's daughter, by phone again today total care time - 35 min Admission and Anticipated Discharge Date Admission Date: November 04, 2020 Subjective patient very tired/lethargic/confused during my visit. unable to provide any meaningful history/ros. nursing flowsheets - sips/bites once again for most meals. tele - stable overnight, NSR or sinus eddy. Review of Systems Review of Systems: Unobtainable due to cognitive status Physical Exam Constitutional: + ill appearing, + altered mental status and + frail appearing; no acute distress ENMT: external ear and nose normal, oropharynx normal Respiratory: normal respiratory effort, lungs clear to auscultation Cardiovascular: Rate/Rhythm: regular rate and regular rhythm Heart Sounds: normal S1 and normal S2 Vessels: posterior tibial pulses present and dorsalis pedis pulses present; no JVD Extremities: no edema Gastrointestinal (Abdomen): normal bowel sounds, soft, nontender, no hepatosplenomegaly Musculoskeletal: Spine: no thoracic spinal tenderness and no lumbar spinal tenderness Neurologic: Motor/Sensory: + tremor (with rigidity of all limbs ) Psychiatric: Orientation: oriented to person; + not alert, + not oriented to place and + not oriented to time Results & Data Results & Data ([facility]) Vital Signs (Past 12 Hours) Vital Signs Temp Pulse Pulse Resp BP Pulse Ox 11/08/20 11:25 36.4 C L 52 L 14 130/68 98 11/08/20 08:04 37.2 C 49 L 20 120/57 L 97 11/08/20 08:00 49 L 120/57 L 97 11/08/20 07:40 46 L 11/08/20 03:30 36.5 C 72 18 125/56 L 93 11/08/20 02:11 50 L Laboratory Results Laboratory Results - last 24 hr 11/07/20 11/07/20 11/08/20 20:13 20:13 03:57 WBC 4.20 L RBC 3.30 L Hgb 10.0 L Hct 32.2 L MCV 97.6 MCH 30.3 MCHC 31.1 L RDW Std Deviation 54.5 H RDW Coeff of Elizabeth 15.4 H Plt Count 185 MPV 10.2 Immature Gran % (Auto) 0.2 Neut % (Auto) 83.1 Lymph % (Auto) 9.3 [place] % (Auto) 6.0 Eos % (Auto) 1.4 Baso % (Auto) 0.0 Neut # (Auto) 3.49 Lymph # (Auto) 0.39 L [place] # (Auto) 0.25 Eos # (Auto) 0.06 Baso # (Auto) 0.00 Immature Gran # (Auto) 0.01 PT 10.4 INR 1.0 APTT 28.7 51.3 H* PTT Ratio 1.0 1.8 Sodium Potassium Chloride Carbon Dioxide Anion Gap BUN Creatinine Est Cr Clr Drug Dosing Est GFR ( Amer) Est GFR (Non-Af Amer) BUN/Creatinine Ratio Glucose Calcium C-Reactive Protein Procalcitonin 11/08/20 11/08/20 11/08/20 08:49 08:49 08:49 WBC 3.78 L RBC 3.08 L Hgb 9.2 L Hct 29.8 L MCV 96.8 MCH 29.9 MCHC 30.9 L RDW Std Deviation 54.5 H RDW Coeff of [place] 15.4 H Plt Count 166 MPV 10.0 Immature Gran % (Auto) 0.0 Neut % (Auto) 79.6 Lymph % (Auto) 9.8 [place] % (Auto) 8.5 Eos % (Auto) 2.1 Baso % (Auto) 0.0 Neut # (Auto) 3.01 Lymph # (Auto) 0.37 L [place] # (Auto) 0.32 Eos # (Auto) 0.08 Baso # (Auto) 0.00 Immature Gran # (Auto) 0.00 PT INR APTT PTT Ratio Sodium 142 Potassium 3.8 Chloride 115 H Carbon Dioxide 27 Anion Gap 0 L BUN 20 H Creatinine 0.61 Est Cr Clr Drug Dosing 67.0 Est GFR ( Amer) 96.5 Est GFR (Non-Af Amer) 83.2 BUN/Creatinine Ratio 32.2 H Glucose 96 Calcium 7.9 L C-Reactive Protein 3.72 H Procalcitonin < 0.05 PG Care Time/CCT Total # of Minutes Spent Total Time Spent with Patient: Total time spent is greater than 50% in coordinat ion of care (as documented) at patient's floor/unit and/or counseling patient: Coding Level of Care Code 25393 Subseq Hosp Care Lvl 3 Diagnoses Embolic stroke I63.40 Precerebral and cerebral artery: unspecified cerebral artery Metabolic encephalopathy G93.41 Rhabdomyolysis M62.82 Rhabdomyolysis type: non-traumatic Elevated troponin level R77.8 Frequent falls R29.6 Failure to thrive Parkinsons disease G20 CKD (chronic kidney disease), stage III N18.3 Hypertension I10 Hyperlipidemia E78.5 Atrial fibrillation I48.0 Atrial fibrillation type: paroxysmal Chronic lower back pain M54.5; G89.29 Anemia D64.9 UTI (urinary tract infection) N39.0 DVT prophylaxis Z29.9 (1) Atrial fibrillation Atrial fibrillation type: paroxysmal Qualified Code(s): I48.0 - Paroxysmal atrial fibrillation (2) Rhabdomyolysis Rhabdomyolysis type: non-traumatic Qualified Code(s): M62.82 - Rhabdomyolysis (3) Embolic stroke Precerebral and cerebral artery: unspecified cerebral artery Qualified Code(s): I63.40 - Cerebral infarction due to embolism of unspecified cerebral artery
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
[2020-11-08] MEDS: HEPARIN SODIUM/DEXTROSE 25,000 UNITS/500 ML BAG IV SCH (16:53)
[2020-11-08] MEDS: clonazePAM 0.5 MG TAB PO SCH (20:41)
[2020-11-08] MEDS: AMIODARONE 200 MG TAB PO SCH (20:42)
[2020-11-08] MEDS: ESCITALOPRAM OXALATE 20 MG TAB PO SCH (20:42)
[2020-11-08] MEDS: DONEPEZIL HCL 10 MG TAB PO SCH (20:42)
[2020-11-09 07:01] LABS: Partial Thromboplastin Ratio 2.1
[2020-11-09 07:06] LABS: BUN Creatinine Ratio 27.1 (10-20); Calcium 8.4 mg/dl (8.5-10.1); Creatinine Clr Calc Pharmacy 65.2 ml/min; Est GFR (Non-African American) 81.9; Potassium 3.8 mmol/L (3.5-5.1)
[2020-11-09] MEDS: cephALEXin 500 MG CAP PO SCH ×2 (07:42→20:06)
[2020-11-09] MEDS: CARBIDOPA/LEVODOPA 25/100MG TAB PO SCH ×4 (07:42→20:05)
[2020-11-09] MEDS: CARBIDOPA/LEVODOPA 50/200MG EXT REL TAB PO SCH ×2 (07:43→20:08)
[2020-11-09] MEDS: MEMANTINE HCL 10 MG TAB PO SCH ×2 (07:44→20:07)
[2020-11-09] MEDS: FAMOTIDINE 40 MG TABLET PO SCH (07:44)
[2020-11-09] MEDS: ADVANCED PROBIOTIC 1250 MG CAPSULE PO SCH (07:44)
[2020-11-09] MEDS: COLLAGENASE OINT 30 GM TUBE TOP SCH (07:45)
--- NOTE | 2020-11-09 13:02 | Palliative Care Progress Note ---
Date of Service November 09, 2020 Assessment & Plan (1) Debility: Followed by PT/OT in hospital. Family is considering transfer to SNF for further therapy. (2) Anorexia: Evaluated by speech therapy. No aspiration but intake is poor and she requires assistance with feeding. Albumin on admission was 2.9 (3) Palliative care encounter: 40 minute phone conference with [place] children, Mary, Jocelyn and Nadir. Reviewed current status. They have good understanding of her current medical issues and her prognosis. They have some second thoughts about previous decision to stop anticoagulation which increases her risk for strokes but are ultimately comfortable with that decision and do not wish to proceed with further anticoagulation. We discussed possible plans of care including [facility] SNF placement, short term SNF placement for attempt at rehab though they are aware that her rehab potential is limited, or also home with hospice care. They feel that she did have benefit from prior rehab and would like to try short term rehab at SNF. They are considering her return to home after rehab, possibly with hospice support. We reviewed hospice philosophy and benefit and answered questions about available support. (4) Embolic stroke: (5) Dementia: (6) Metabolic encephalopathy: Admission and Anticipated Discharge Date Admission Date: November 04, 2020 Subjective Very weak. Voice is easier to understand but she is confused, asking several times if her is in custodial. She denies pain or dyspnea. PO intake has been poor. Review of Systems Review of Systems: Unobtainable due to cognitive status [place] Symptom Assessment Scale Pain 0/3 Dyspnea 0/3 Nausea 0/3 Anxiety 1/3 Anorexia 2/3 Drowsiness 0/3 Palliative Performance Score 30% Physical Exam Constitutional: + thin and + frail appearing ENMT: Mouth: + dry oral mucous membranes Respiratory: normal respiratory effort; no labored breathing Gastrointestinal (Abdomen): Percussion/Palpation: abdomen nontender Musculoskeletal: Extremities: extremities normal to inspection Skin: multiple ecchymotic areas Neurologic: moves all extremities and + confused Results & Data ([facility]) Vital Signs (Past 12 Hours) Vital Signs Temp Pulse Resp BP Pulse Ox 11/09/20 11:43 97.5 F L 56 L 16 151/65 H 98 11/09/20 07:40 98.2 F 53 L 16 143/77 H 92 PG Care Time/CCT Total # of Minutes Spent Total Time Spent with Patient: Total time spent is greater than 50% in coordination of care (as documented) at patient's floor/unit and/or counseling patient:Total time spent 75 minutes with more than 50% of time spent on family update and support, goals of care, hospice and coordination of care. Coding Level of Care Code 24932 Subseq Hosp Care Lvl 3 Diagnoses Debility R53.81 Anorexia R63.0 Palliative care encounter Z51.5 Embolic stroke I63.40 Precerebral and cerebral artery: unspecified cerebral artery Dementia F03.90 Dementia behavioral disturbance: without behavioral disturbance Dementia type: unspecified type Metabolic encephalopathy G93.41 (1) Dementia Dementia behavioral disturbance: without behavioral disturbance Dementia type: unspecified type Qualified Code(s): F03.90 - Unspecified dementia without behavioral disturbance (2) Embolic stroke Precerebral and cerebral artery: unspecified cerebral artery Qualified Code(s): I63.40 - Cerebral infarction due to embolism of unspecified cerebral artery
[2020-11-09] MEDS ORDERED: LORazepam 0.5 MG TAB PO PRN (13:10)
--- NOTE | 2020-11-09 19:56 | Hospitalist Progress Note ---
Date of Service November 09, 2020 Assessment & Plan (1) Embolic stroke: MRI brain with b/l punctate strokes c/w embolic etiology. Due to copious # of falls over the last few months her xarelto was stopped as an outpatient about 1 month ago per daughter. Thus, strokes are likely due to thrombus formation in the setting of a.fib with subsequent embolization. Heparin drip started earlier this week and multiple discussions held with pt's daughter (myself and Dr Dsouza did) to go over risks/benefits of resuming anticoagulation. Family has elected to NOT pursue PO anticoagulation. d/c heparin. (2) Metabolic encephalopathy: likely 2nd to b/l strokes and UTI. about the same as most past visits. (3) Rhabdomyolysis: 2nd to falls. Resolved. (4) Elevated troponin level: Either 2nd to rhabdomyolysis or from myocardial demand ischemia in setting of falls, UTI, etc. (5) Frequent falls: Likely UTI in setting of advanced PD and dementia all contributed to numerous falls prior to admission. Remains at high risk of falls in future. (6) Failure to thrive: ongoing severe suspect that FTT is due to advanced PD and dementia with superimposed strokes other than UTI no other signs/symptoms of infectious process FTT is continuing -- laying in bed all day, confused, minimal/scant PO intake Dr Dsouza from palliative care involved -- see below (7) Parkinsons disease: Advanced. Cont carbidopa/levodopa at home doses. (8) CKD (chronic kidney disease), stage III: Baseline CrCL <60. Cr stable (9) Hypertension: BPs normal or low-normal. hold lasix. (10) Hyperlipidemia: not on meds for such (11) Atrial fibrillation: in NSR. cont amiodarone. not on anticoagulation - due to frequent falls - see discussion above in "embolic stroke" TSH wnl. (12) Chronic lower back pain: checked pelvis and hip x-rays to r/o fracture -- negative for such. Ct abd/pelvis with healing T11/T12 fractures -- suspect subacute or chronic. (13) Anemia: iron studies, b12, folate - acceptable suspect anemia of chronic disease stool heme negative (14) UTI (urinary tract infection): day #6 of abx today plan 7 days of IV/PO abx then d/c (15) DVT prophylaxis: stop heparin drip Dr Dsouza had zoom call with family today plan - no anticoagulation SNF placement attempts at some rehab if no improvement then transition to hospice DNR Admission and Anticipated Discharge Date Admission Date: November 04, 2020 Subjective no issues overnight patient again confused and could offer no meaningful history or ROS sips/bites again noted on nursing flowsheet for PO intake Review of Systems Review of Systems: Unobtainable due to cognitive status Physical Exam Constitutional: + altered mental status and + frail appearing; no acute distress ENMT: external ear and nose normal, oropharynx normal Respiratory: normal respiratory effort, lungs clear to auscultation Cardiovascular: Rate/Rhythm: regular rate and regular rhythm Heart Sounds: normal S1 and normal S2 Vessels: posterior tibial pulses present and dorsalis pedis pulses present; no JVD Extremities: no edema Gastrointestinal (Abdomen): normal bowel sounds, soft, nontender, no hepatosplenomegaly Neurologic: Motor/Sensory: + tremor (with rigidity of all limbs ) Psychiatric: Orientation: oriented to person; + not oriented to place and + not oriented to time Results & Data Results & Data ([facility]) Vital Signs (Past 12 Hours) Vital Signs Temp Pulse Resp BP Pulse Ox 11/09/20 15:57 36.5 C 57 L 18 154/75 H 96 11/09/20 11:43 36.4 C L 56 L 16 151/65 H 98 PG Care Time/CCT Total # of Minutes Spent Total Time Spent with Patient: Total time spent is greater than 50% in coordination of care (as documented) at patient's floor/unit and/or counseling patient: Coding Level of Care Code 84925 Subseq Hosp Care Lvl 2 Diagnoses Embolic stroke I63.40 Precerebral and cerebral artery: unspecified cerebral artery Metabolic encephalopathy G93.41 Rhabdomyolysis M62.82 Rhabdomyolysis type: non-traumatic Elevated troponin level R77.8 Frequent falls R29.6 Failure to thrive Parkinsons disease G20 CKD (chronic kidney disease), stage III N18.3 Hypertension I10 Hyperlipidemia E78.5 Atrial fibrillation I48.0 Atrial fibrillation type: paroxysmal Chronic lower back pain M54.5; G89.29 Anemia D64.9 UTI (urinary tract infection) N39.0 DVT prophylaxis Z29.9 (1) Atrial fibrillation Atrial fibrillation type: paroxysmal Qualified Code(s): I48.0 - Paroxysmal atrial fibrillation (2) Rhabdomyolysis Rhabdomyolysis type: non-traumatic Qualified Code(s): M62.82 - Rhabdomyolysis (3) Embolic stroke Precerebral and cerebral artery: unspecified cerebral artery Qualified Code(s): I63.40 - Cerebral infarction due to embolism of unspecified cerebral artery
[2020-11-09] MEDS: DONEPEZIL HCL 10 MG TAB PO SCH (20:06)
[2020-11-09] MEDS: ESCITALOPRAM OXALATE 20 MG TAB PO SCH (20:06)
[2020-11-09] MEDS: clonazePAM 0.5 MG TAB PO SCH (20:06)
[2020-11-09] MEDS: AMIODARONE 200 MG TAB PO SCH (20:07)
[2020-11-10] MEDS ORDERED: ALENDRONATE SODIUM 70 MG TAB PO SCH (06:00)
[2020-11-10] MEDS: cephALEXin 500 MG CAP PO SCH ×2 (08:44→20:30)
[2020-11-10] MEDS: CARBIDOPA/LEVODOPA 50/200MG EXT REL TAB PO SCH ×2 (08:45→20:30)
[2020-11-10] MEDS: CARBIDOPA/LEVODOPA 25/100MG TAB PO SCH ×4 (08:45→20:29)
[2020-11-10] MEDS: ADVANCED PROBIOTIC 1250 MG CAPSULE PO SCH (08:46)
[2020-11-10] MEDS: FAMOTIDINE 40 MG TABLET PO SCH (08:46)
[2020-11-10] MEDS: COLLAGENASE OINT 30 GM TUBE TOP SCH (08:46)
[2020-11-10] MEDS: MEMANTINE HCL 10 MG TAB PO SCH ×2 (09:33→20:30)
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
[2020-11-10] MEDS: DONEPEZIL HCL 10 MG TAB PO SCH (20:30)
[2020-11-10] MEDS: ESCITALOPRAM OXALATE 20 MG TAB PO SCH (20:30)
[2020-11-10] MEDS: AMIODARONE 200 MG TAB PO SCH (20:31)
[2020-11-10] MEDS: clonazePAM 0.5 MG TAB PO SCH (20:36)
[2020-11-10] MEDS: D5W AND 1/2NSS + 20MEQ KCL 20 MEQ/1,000 ML BAG IV SCH (21:30)
[2020-11-11 06:05] LABS: Eosinophils # (auto) 0.04 K/uL (0-0.5); Eosinophils % (auto) 0.7 %; Hematocrit (blood only) 30.3 % (37-47); Hemoglobin 9.4 g/dL (12.0-16.0); Immature Granulocytes # (auto) 0.04 K/uL (0.00-0.02); Immature Granulocytes % (auto) 0.7 %; Lymphocytes # (auto) 0.75 K/uL (1.2-3.4); Lymphocytes % (auto) 12.8 %; Mean Corpuscular Hemoglobin 29.4 pg (25-34); Mean Corpuscular Volume 94.7 fL (80-100); Mean Platelet Volume 10.2 fL (7.4-10.4); Monocytes # (auto) 0.53 K/uL (0.11-0.59); Neutrophils # (auto) 4.51 K/uL (1.4-6.5); Neutrophils % (auto) 76.8 %; Nucleated RBC # (auto) 0.02 K/uL (0-0); Nucleated RBC % (auto) 0.3 %; Platelet Count 213 K/uL (130-400); RDW Coefficient of Variation 15.3 % (11.5-14.5); White Blood Count 5.87 K/uL (4.8-10.8)
[2020-11-11 06:33] LABS: D Dimer 8610 ug/L FEU (0-500)
[2020-11-11 06:35] LABS: BUN Creatinine Ratio 22.8 (10-20); Calcium 8.1 mg/dl (8.5-10.1); Creatinine Clr Calc Pharmacy 59.6 ml/min; Est GFR (African American) 92.2; Est GFR (Non-African American) 79.6; Potassium 3.9 mmol/L (3.5-5.1)
[2020-11-11 06:36] LABS: C Reactive Protein 1.46 mg/dl (0-0.29)
[2020-11-11] MEDS: FAMOTIDINE 40 MG TABLET PO SCH (09:21)
[2020-11-11] MEDS: CARBIDOPA/LEVODOPA 25/100MG TAB PO SCH ×4 (09:21→21:51)
[2020-11-11] MEDS: MEMANTINE HCL 10 MG TAB PO SCH ×2 (09:21→21:53)
[2020-11-11] MEDS: COLLAGENASE OINT 30 GM TUBE TOP SCH (09:22)
[2020-11-11] MEDS: CARBIDOPA/LEVODOPA 50/200MG EXT REL TAB PO SCH ×2 (09:22→21:53)
[2020-11-11] MEDS: D5W AND 1/2NSS + 20MEQ KCL 20 MEQ/1,000 ML BAG IV SCH ×2 (09:22→21:54)
[2020-11-11] MEDS: ADVANCED PROBIOTIC 1250 MG CAPSULE PO SCH (09:22)
[2020-11-11] MEDS ORDERED: MoRPHine SULFATE 2 MG/ML CARP IV PRN (13:43)
--- NOTE | 2020-11-11 13:44 | Hospitalist Progress Note ---
Date of Service November 11, 2020 Assessment & Plan (1) Embolic stroke: MRI brain with b/l punctate strokes c/w embolic etiology earlier this stay. Due to copious # of falls over the last few months her xarelto was stopped as an outpatient about 1 month ago per daughter. Thus, strokes are likely due to thrombus formation in the setting of a.fib with subsequent embolization from the heart. Heparin drip started earlier this week and multiple discussions held with pt's daughter (myself and Dr Dsouza did) to go over risks/benefits of resuming anticoagulation. Family has elected to NOT pursue PO anticoagulation at this time. heparin stopped. xarelto or other oral agent not resumed. family aware she remains at very high risk of recurrent strokes. (2) Metabolic encephalopathy: ongoing severe worsening could consider low-dose antipsychotic her failure to thrive, met encephalopathy, and severe anorexia are preventing her from making any sizable progress (3) Rhabdomyolysis: 2nd to falls. Resolved earlier this stay. (4) Elevated troponin level: Either 2nd to rhabdomyolysis or from myocardial demand ischemia in setting of falls, UTI, etc. (5) Frequent falls: UTI in setting of advanced PD and dementia along with newly-discovered b/l embolic strokes likely all contributed to numerous falls prior to admission. Remains at high risk of falls in future. (6) Failure to thrive: ongoing severe has worsened while hospitalized - laying in bed all day, severe confusion, severe anorexia, etc. suspect that FTT is due to advanced PD and dementia with superimposed strokes and UTI can't rule out another brewing infectious process beyond UTI as she had low-grade fever last night (37.7) of note - COVID NEGATIVE x [address] Dsouza from palliative care involved could consider low-dose prednisone (5 or 10mg) to see if this helps appetite & overall wellbeing defer for now (7) Parkinsons disease: Advanced. End stage. follows with Dr Alan. Cont carbidopa/levodopa at home doses. (8) CKD (chronic kidney disease), stage III: Baseline CrCL <60. Cr stable (9) Hypertension: BPs normal or low-normal with ongoing dehydration. hold lasix. (10) Hyperlipidemia: not on meds for such (11) Atrial fibrillation: remains in NSR with daily amiodarone use. not on anticoagulation - due to frequent falls - see discussion above in "embolic stroke" TSH wnl. (12) Chronic lower back pain: checked pelvis and hip x-rays to r/o fracture -- negative for such. Ct abd/pelvis with healing T11/T12 fractures -- suspect subacute or chronic. (13) Anemia: iron studies, b12, folate - acceptable suspect anemia of chronic disease stool heme negative (14) UTI (urinary tract infection): completed 7-day course of IV/PO abx (15) DVT prophylaxis: scds I spoke once again to pt's daughter by phone reviewed 24 hour events explained that failure to thrive, confusion and anorexia persist explained that she has actually gotten much worse while here there was discussion about transitioning to hospice once at the SNF on Thursday with Dr Dsouza I mentioned to daughter that I firmly believe we are rapidly approaching a transition to hospice even sooner than that Her "rehab" potential at [facility] is negligible; she cannot even roll in bed on her own daughter voiced understanding if she continues on this trajectory would not hesitate to transition to comfort care measures of note - ordered morphine 1mg IV q3h for discomforts given her significant restlessness today DNR total time today 35 minutes Admission and Anticipated Discharge Date Admission Date: November 04, 2020 Subjective patient very, very confused during the visit much like yesterday. was restless - kept shifting in bed as if she was uncomfortable or in pain. I asked her if she was ok or in pain - she could not give me an intelligible answer. again her speech was word salad like -- similar to yesterday. could not gain any meaningful history or ROS. ate 50% of breakfast today but otherwise poor appetite. laying in bed all day. TV is on but she is not listening or actually watching it. occasionally talking to people that are not there. occasionally reaching for objects in the air. Review of Systems Review of Systems: Unobtainable due to cognitive status Physical Exam Constitutional: + acute distress (Seems uncomfortable today ), + altered mental status and + frail appearing Respiratory: normal respiratory effort, lungs clear to auscultation Cardiovascular: Rate/Rhythm: regular rate and regular rhythm Heart Sounds: normal S1 and normal S2 Vessels: posterior tibial pulses present and dorsalis pedis pulses present; no JVD Extremities: no edema Gastrointestinal (Abdomen): normal bowel sounds, soft, nontender, no hepatosplenomegaly Neurologic: Motor/Sensory: + tremor (with rigidity of all limbs ) Psychiatric: Orientation: + not alert and + not oriented x 3 Results & Data Results & Data ([facility]) Vital Signs (Past 12 Hours) Vital Signs Temp Pulse Resp BP Pulse Ox 11/11/20 07:18 36.8 C 54 L 18 148/70 H 98 Laboratory Results Laboratory Results - last 24 hr 11/11/20 11/11/20 11/11/20 05:41 05:41 05:41 WBC 5.87 RBC 3.20 L Hgb 9.4 L Hct 30.3 L MCV 94.7 MCH 29.4 MCHC 31.0 L RDW Std Deviation 53.0 H RDW Coeff of [place] 15.3 H Plt Count 213 MPV 10.2 Immature Gran % (Auto) 0.7 Neut % (Auto) 76.8 Lymph % (Auto) 12.8 [place] % (Auto) 9.0 Eos % (Auto) 0.7 Baso % (Auto) 0.0 Neut # (Auto) 4.51 Lymph # (Auto) 0.75 L [place] # (Auto) 0.53 Eos # (Auto) 0.04 Baso # (Auto) 0.00 Immature Gran # (Auto) 0.04 H Absolute Nucleated RBC 0.02 H Nucleated RBC % (auto) 0.3 D-Dimer 8610 H* Sodium 142 Potassium 3.9 Chloride 112 H Carbon Dioxide 27 Anion Gap 3.0 BUN 16 Creatinine 0.70 Est Cr Clr Drug Dosing 59.6 Est GFR ( Amer) 92.2 Est GFR (Non-Af Amer) 79.6 BUN/Creatinine Ratio 22.8 H Glucose 99 Calcium 8.1 L C-Reactive Protein 1.46 H PG Care Time/CCT Total # of Minutes Spent Total Time Spent with Patient: Total time spent is greater than 50% in coordination of care (as documented) at patient's floor/unit and/or counseling patient: Coding Level of Care Code 34062 Subseq Hosp Care Lvl 3 Diagnoses Embolic stroke I63.40 Precerebral and cerebral artery: unspecified cerebral artery Metabolic encephalopathy G93.41 Rhabdomyolysis M62.82 Rhabdomyolysis type: non-traumatic Elevated troponin level R77.8 Frequent falls R29.6 Failure to thrive Parkinsons disease G20 CKD (chronic kidney disease), stage III N18.3 Hypertension I10 Hyperlipidemia E78.5 Atrial fibrillation I48.0 Atrial fibrillation type: paroxysmal Chronic lower back pain M54.5; G89.29 Anemia D64.9 UTI (urinary tract infection) N39.0 DVT prophylaxis Z29.9 (1) Atrial fibrillation Atrial fibrillation type: paroxysmal Qualified Code(s): I48.0 - Paroxysmal atrial fibrillation (2) Rhabdomyolysis Rhabdomyolysis type: non-traumatic Qualified Code(s): M62.82 - Rhabdomyolysis (3) Embolic stroke Precerebral and cerebral artery: unspecified cerebral artery Qualified Code(s): I63.40 - Cerebral infarction due to embolism of unspecified cerebral artery
[2020-11-11] MEDS: AMIODARONE 200 MG TAB PO SCH (21:52)
[2020-11-11] MEDS: DONEPEZIL HCL 10 MG TAB PO SCH (21:53)
[2020-11-11] MEDS: ESCITALOPRAM OXALATE 20 MG TAB PO SCH (21:54)
[2020-11-11] MEDS: clonazePAM 0.5 MG TAB PO SCH (21:56)
[2020-11-12] MEDS: CARBIDOPA/LEVODOPA 50/200MG EXT REL TAB PO SCH ×2 (08:25→20:02)
[2020-11-12] MEDS: MEMANTINE HCL 10 MG TAB PO SCH ×2 (08:26→20:02)
[2020-11-12] MEDS: FAMOTIDINE 40 MG TABLET PO SCH (08:26)
[2020-11-12] MEDS: ADVANCED PROBIOTIC 1250 MG CAPSULE PO SCH (08:27)
[2020-11-12] MEDS: CARBIDOPA/LEVODOPA 25/100MG TAB PO SCH ×4 (08:28→20:02)
[2020-11-12] MEDS: COLLAGENASE OINT 30 GM TUBE TOP SCH (08:28)
[2020-11-12] MEDS: D5W AND 1/2NSS + 20MEQ KCL 20 MEQ/1,000 ML BAG IV SCH ×2 (10:53→23:53)
--- NOTE | 2020-11-12 16:10 | Hospitalist Progress Note ---
Date of Service November 12, 2020 Assessment & Plan (1) Embolic stroke: MRI brain with b/l punctate strokes c/w embolic etiology earlier this stay. Due to copious # of falls over the last few months her xarelto was stopped as an outpatient about 1 month ago per daughter. Thus, strokes are likely due to thrombus formation in the setting of a.fib with subsequent embolization from the heart. Heparin drip started earlier this week and multiple discussions held with pt's daughter by Dr. Beckett and Dr Dsouza to go over risks/benefits of resuming anticoagulation. Family has elected to NOT pursue PO anticoagulation at this time. heparin stopped. xarelto or other oral agent not resumed. family aware she remains at very high risk of recurrent strokes planning on home hospice which would be appropriate care (2) Metabolic encephalopathy: ongoing severe worsening her failure to thrive, met encephalopathy, and severe anorexia are preventing her from making any sizable progress palliative care involved in her care (3) Rhabdomyolysis: 2nd to falls. Resolved earlier this stay. (4) Elevated troponin level: Either 2nd to rhabdomyolysis or from myocardial demand ischemia in setting of falls, UTI, etc. (5) Frequent falls: UTI in setting of advanced PD and dementia along with newly-discovered b/l embolic strokes likely all contributed to numerous falls prior to admission. Remains at high risk of falls in future. (6) Failure to thrive: ongoing severe has worsened while hospitalized - laying in bed all day, severe confusion, severe anorexia, etc. suspect that FTT is due to advanced PD and dementia with superimposed strokes and UTI can't rule out another brewing infectious process beyond UTI as she had low- grade fever last night (37.7) of note - COVID NEGATIVE x [address] Dsouza from palliative care involved could consider low-dose prednisone (5 or 10mg) to see if this helps appetite & overall wellbeing defer for now (7) Parkinsons disease: Advanced. End stage. follows with Dr Alan. Cont carbidopa/levodopa at home doses. (8) CKD (chronic kidney disease), stage III: Baseline CrCL <60. Cr stable (9) Hypertension: BPs normal or low-normal with ongoing dehydration. hold lasix. (10) Hyperlipidemia: not on meds for such (11) Atrial fibrillation: remains in NSR with daily amiodarone use. not on anticoagulation - due to frequent falls - see discussion above in "embolic stroke" TSH wnl. (12) Chronic lower back pain: checked pelvis and hip x-rays to r/o fracture -- negative for such. Ct abd/pelvis with healing T11/T12 fractures -- suspect subacute or chronic. (13) Anemia: iron studies, b12, folate - acceptable suspect anemia of chronic disease stool heme negative (14) UTI (urinary tract infection): completed 7-day course of IV/PO abx (15) DVT prophylaxis: scds Dr. Dsouza plans to reach out to family again to discuss home hospice doubt that patient has rehab potential at this time due to failure to thrive, encephalopathy, embolic strokes DNR Admission and Anticipated Discharge Date Admission Date: November 04, 2020 Subjective patient resting comfortably appreciate note from yesterday, Dr. Beckett discussed home hospice with patient's family she really does not have much rehab potential at this point no labs today she is alert, trying to speak, has some aphasia she certainly appears comfortable Review of Systems Review of Systems: Unobtainable due to cognitive status Physical Exam Constitutional: well developed, + thin and comfortable; no acute distress Neck: trachea midline, no thyromegaly Respiratory: normal respiratory effort, lungs clear to auscultation Cardiovascular: RRR, no murmur, no edema Gastrointestinal (Abdomen): normal bowel sounds, soft, nontender, no hepatosplenomegaly Musculoskeletal: Head/Neck/Chest: normocephalic, head atraumatic and neck supple Extremities: + abnormal strength (generalized weakness) and + muscle atrophy; no cyanosis, no clubbing and no petechiae Skin: no rashes, warm and dry Neurologic: CN's II-XI intact bilaterally and + confused; no focal motor deficits Speech / Cognition: + abnormal speech Motor/Sensory: + tremor Psychiatric: Orientation: alert, oriented to person and cooperative; + not oriented to place and + not oriented to time Lymphatic: no cervical or axillary lymphadenopathy Results & Data Results & Data ([facility]) Vital Signs (Past 12 Hours) Vital Signs Temp Pulse Resp BP Pulse Ox 11/12/20 16:01 37.0 C 60 19 128/66 97 11/12/20 06:44 36.9 C 53 L 16 133/78 96 Medications Administered Current Inpatient Medications Amiodarone HCl (Amiodarone 200 Mg Tab) 200 mg PO DAILY@1999 [facility] Stop: 12/04/20 21:14 Last Admin: 11/11/20 21:52 Dose: 200 mg Documented by: Carbidopa/Levodopa (Carbidopa/Levodopa 25-250 1 Ea Tab) 1 tab PO TID PRN PRN Reason: Parkinson's Disease Stop: 12/04/20 21:31 Carbidopa/Levodopa (Carbidopa/Levodopa 50/200mg Ext Rel Tab) 1 tab PO BID [facility] Stop: 12/04/20 21:14 Last Admin: 11/12/20 08:25 Dose: 1 tab Documented by: Carbidopa/Levodopa (Carbidopa/Levodopa 25/100mg Tab) 3 tab PO QID [facility] Stop: 12/04/20 21:14 Last Admin: 11/12/20 12:05 Dose: 3 tab Documented by: Clonazepam (Clonazepam 0.5 Mg Tab) 0.5 mg PO [facility] Stop: 12/04/20 21:14 Last Admin: 11/11/20 21:56 Dose: 0.5 mg Documented by: Collagenase (Collagenase Oint 30 Gm Tube) 1 appln TOP DAILY [facility] Stop: 12/05/20 08:59 Last Admin: 11/12/20 08:28 Dose: 1 appln Documented by: Donepezil HCl (Donepezil Hcl 10 Mg Tab) 10 mg PO [facility] Stop: 12/04/20 21:14 Last Admin: 11/11/20 21:53 Dose: 10 mg Documented by: Ergocalciferol (Ergocalciferol 50,000 Units 1250 Mcg Cap) 50,000 units PO Tu@0900 [facility] Stop: 12/06/20 08:59 Last Admin: 11/06/20 08:11 Dose: 50,000 units Documented by: Escitalopram Oxalate (Escitalopram Oxalate 20 Mg Tab) 20 mg PO DAILY@1999 [facility] Stop: 12/04/20 21:14 Last Admin: 11/11/20 21:54 Dose: 20 mg Documented by: Famotidine (Famotidine 40 Mg Tablet) 40 mg PO QAM [facility] Stop: 12/05/20 08:59 Last Admin: 11/12/20 08:26 Dose: 40 mg Documented by: Potassium Chloride/Dextrose/Sod Cl (D5w And 1/2nss + 20meq Kcl) 20 meq in 1,000 mls @ 75 mls/hr IV .[id number] [facility] Stop: 12/10/20 19:59 Last Admin: 11/12/20 10:53 Dose: 75 mls/hr Documented by: Lactobacillus Acidoph/Casei/Rhamnos (Advanced Probiotic 1250 Mg Capsule) 2 cap PO DAILY [facility] Stop: 12/06/20 08:59 Last Admin: 11/12/20 08:27 Dose: 2 cap Documented by: Lorazepam (Lorazepam 0.5 Mg Tab) 0.5 mg PO Q8H PRN PRN Reason: anxiety Stop: 12/05/20 17:59 Last Admin: 11/11/20 00:01 Dose: 0.5 mg Documented by: Memantine (Memantine Hcl 10 Mg Tab) 10 mg PO BID [facility] Stop: 12/04/20 21:14 Last Admin: 11/12/20 08:26 Dose: 10 mg Documented by: Miconazole Nitrate (Miconazole Nitrate Powder 43 Gm) 1 appln EXT PRN PRN PRN Reason: Affected Skin Folds Stop: 12/04/20 21:17 Last Admin: 11/04/20 23:13 Dose: 1 appln Documented by: Morphine Sulfate (Morphine Sulfate 2 Mg/Ml Carp) 1 mg IV Q3H PRN PRN Reason: Pain or discomfort Stop: 11/25/20 13:42 Last Admin: 11/11/20 14:10 Dose: 1 mg Documented by: Multi-Ingredient Cream (Artificial Tears Op Oint 3.5 Gm Tube) 1 appln OPB DAILY PRN PRN Reason: Dry Eye(S) Stop: 12/04/20 21:14 Polyethylene Glycol (Polyethylene (Miralax) 17 Gm Pack) 17 gm PO DAILY PRN PRN Reason: Constipation Stop: 12/04/20 21:14 PG Care Time/CCT Total # of Minutes Spent Total Time Spent with Patient: Total time spent is greater than 50% in coordination of care (as documented) at patient's floor/unit and/or counseling patient: Coding Level of Care Code 81172 Subseq Hosp Care Lvl 2 Diagnoses Embolic stroke I63.40 Precerebral and cerebral artery: unspecified cerebral artery Metabolic encephalopathy G93.41 Rhabdomyolysis M62.82 Rhabdomyolysis type: non-traumatic Elevated troponin level R77.8 Frequent falls R29.6 Failure to thrive Parkinsons disease G20 CKD (chronic kidney disease), stage III N18.3 Hypertension I10 Hyperlipidemia E78.5 Atrial fibrillation I48.0 Atrial fibrillation type: paroxysmal Chronic lower back pain M54.5; G89.29 Anemia D64.9 UTI (urinary tract infection) N39.0 DVT prophylaxis Z29.9 (1) Atrial fibrillation Atrial fibrillation type: paroxysmal Qualified Code(s): I48.0 - Paroxysmal atrial fibrillation (2) Rhabdomyolysis Rhabdomyolysis type: non-traumatic Qualified Code(s): M62.82 - Rhabdomyolysis (3) Embolic stroke Precerebral and cerebral artery: unspecified cerebral artery Qualified Code(s): I63.40 - Cerebral infarction due to embolism of unspecified cerebral artery
[2020-11-12] MEDS: AMIODARONE 200 MG TAB PO SCH (20:02)
[2020-11-12] MEDS: ESCITALOPRAM OXALATE 20 MG TAB PO SCH (20:02)
[2020-11-12] MEDS: DONEPEZIL HCL 10 MG TAB PO SCH (20:04)
[2020-11-12] MEDS: clonazePAM 0.5 MG TAB PO SCH (20:04)
[2020-11-13] MEDS: CARBIDOPA/LEVODOPA 25/100MG TAB PO SCH ×4 (09:27→21:03)
[2020-11-13] MEDS: CARBIDOPA/LEVODOPA 50/200MG EXT REL TAB PO SCH ×2 (09:28→21:02)
[2020-11-13] MEDS: ERGOCALCIFEROL 50,000 UNITS 1250 MCG CAP PO SCH (09:28)
[2020-11-13] MEDS: MEMANTINE HCL 10 MG TAB PO SCH ×2 (09:28→21:01)
[2020-11-13] MEDS: COLLAGENASE OINT 30 GM TUBE TOP SCH (09:29)
[2020-11-13] MEDS: ADVANCED PROBIOTIC 1250 MG CAPSULE PO SCH (09:29)
[2020-11-13] MEDS: FAMOTIDINE 40 MG TABLET PO SCH (09:29)
--- NOTE | 2020-11-13 11:12 | Palliative Care Progress Note ---
Date of Service November 13, 2020 Assessment & Plan (1) Anorexia: Taking only sips at this time. Updated daughter about poor po intake. (2) Debility: with Parkinson's disease and b/l CVAs. She is not able to participate in therapy or rehab at this point. (3) Palliative care encounter: I spoke with her daughter, Mary, on the phone to update her. They had been hoping for rehab at SNF. She recognizes that Daphnie is not able to participate in therapy. They are considering her returning home with hospice care. Mary wants to discuss with family and we will touch base again, later today. She asked about prognosis. Given her lack of po intake and progressive weakness, I estimate her life expectancy as days to weeks at this time. 1417 I spoke with Mary on the phone. She and her siblings have decided to take Ora home with hospice care. She asked me again if I thought that Orjosias was at the end stage of her life. I confirmed that unfortunately, that appears to be true. She will arrange caregivers for discharge tomorrow. Dr. Hugo notified. Admission and Anticipated Discharge Date Admission Date: November 04, 2020 Subjective Very weak. Barely unable to lift head from pillow. Confused. Talking about going to school. Denies pain. Review of Systems Review of Systems: Unobtainable due to cognitive status [place] Symptom Assessment Scale Pain 0/3 Dyspnea 0/3 Drowsiness 2/3 Fatigue 3/3 Palliative Performance Score 20% Physical Exam Constitutional: + ill appearing restless ENMT: Mouth: + dry oral mucous membranes Temporal wasting Respiratory: normal respiratory effort; no labored breathing Cardiovascular: Extremities: no edema Gastrointestinal (Abdomen): Percussion/Palpation: abdomen soft; abdomen nontender Musculoskeletal: Extremities: + muscle atrophy Skin: Multiple skin tears Neurologic: + confused lethargic Results & Data ([facility]) Vital Signs (Past 12 Hours) Vital Signs Temp Pulse Resp BP Pulse Ox 11/12/20 23:27 98.4 F 57 L 15 123/66 97 PG Care Time/CCT Total # of Minutes Spent Total Time Spent with Patient: Total time spent is greater than 50% in coordination of care (as documented) at patient's floor/unit and/or counseling patient:Total time spent 40 minutes with more than 50% of time spent on family communication, education, support and goals of care. Coding Level of Care Code 82533 Subseq Hosp Care Lvl 3 Diagnoses Anorexia R63.0 Debility R53.81 Palliative care encounter Z51.5
[2020-11-13] MEDS: D5W AND 1/2NSS + 20MEQ KCL 20 MEQ/1,000 ML BAG IV SCH (13:10)
[2020-11-13] MEDS: AMIODARONE 200 MG TAB PO SCH (20:56)
[2020-11-13] MEDS: clonazePAM 0.5 MG TAB PO SCH (20:57)
[2020-11-13] MEDS: ESCITALOPRAM OXALATE 20 MG TAB PO SCH (20:59)
[2020-11-13] MEDS: DONEPEZIL HCL 10 MG TAB PO SCH (20:59)
[2020-11-13] MEDS ORDERED: LORazepam 0.5 MG/1 ML VIAL IV PRN (22:46)
[2020-11-13] MEDS ORDERED: ONDANSETRON INJ 2 MG/ML 2 ML VIAL IV PRN (22:46)
[2020-11-13] MEDS ORDERED: ATROPINE SULFATE 1% OP SOLN 5 ML BTL SL PRN (22:46)
--- NOTE | 2020-11-13 22:46 | Hospitalist Progress Note ---
Date of Service November 13, 2020 Assessment & Plan (1) Embolic stroke: MRI brain with b/l punctate strokes c/w embolic etiology earlier this stay. Due to copious # of falls over the last few months her xarelto was stopped as an outpatient about 1 month ago per daughter. Thus, strokes are likely due to thrombus formation in the setting of a.fib with subsequent embolization from the heart. Heparin drip started earlier this week and multiple discussions held with pt's daughter by Dr. Beckett and Dr Dsouza to go over risks/benefits of resuming anticoagulation. Family has elected to NOT pursue PO anticoagulation at this time. heparin stopped. xarelto or other oral agent not resumed. family aware she remains at very high risk of recurrent strokes will go home on hospice, will minimize medication list change to [facility], home on (2) Metabolic encephalopathy: ongoing severe worsening her failure to thrive, met encephalopathy, and severe anorexia are preventing her from making any sizable progress palliative care involved in her care family agrees with home hospice (3) Rhabdomyolysis: 2nd to falls. Resolved earlier this stay. (4) Elevated troponin level: Either 2nd to rhabdomyolysis or from myocardial demand ischemia in setting of falls, UTI, etc. (5) Frequent falls: UTI in setting of advanced PD and dementia along with newly-discovered b/l embolic strokes likely all contributed to numerous falls prior to admission. Remains at high risk of falls in future. (6) Failure to thrive: ongoing severe has worsened while hospitalized - laying in bed all day, severe confusion, severe anorexia, etc. suspect that FTT is due to advanced PD and dementia with superimposed strokes and UTI of note - COVID NEGATIVE x [address] Dsouza from palliative care involved comfort measures (7) Parkinsons disease: Advanced. End stage. follows with Dr Alan. Cont carbidopa/levodopa at home doses if she will take them (8) CKD (chronic kidney disease), stage III: Baseline CrCL <60. Cr stable (9) Hypertension: BPs normal or low-normal with ongoing dehydration. hold lasix. (10) Hyperlipidemia: not on meds for such (11) Atrial fibrillation: remains in NSR with daily amiodarone use. not on anticoagulation - due to frequent falls - see discussion above in "embolic stroke" TSH wnl. (12) Chronic lower back pain: checked pelvis and hip x-rays to r/o fracture -- negative for such. Ct abd/pelvis with healing T11/T12 fractures -- suspect subacute or chronic. (13) Anemia: iron studies, b12, folate - acceptable suspect anemia of chronic disease stool heme negative (14) UTI (urinary tract infection): completed 7-day course of IV/PO abx (15) DVT prophylaxis: scds plan for home hospice on , spoke with daughter today DNR Admission and Anticipated Discharge Date Admission Date: November 04, 2020 Subjective patient resting comfortably, no issues she continues to be confused, difficulty speaking discussed plan for home hospice with her daughter, she can take her home morning appreciate help from Dr. Dsouza with palliative care Review of Systems Review of Systems: Unobtainable due to cognitive status Physical Exam Constitutional: well developed, + thin, + altered mental status, comfortable and + lethargic; no acute distress Neck: trachea midline, no thyromegaly Respiratory: normal respiratory effort, lungs clear to auscultation Cardiovascular: RRR, no murmur, no edema Gastrointestinal (Abdomen): normal bowel sounds, soft, nontender, no hepatosplenomegaly Musculoskeletal: Head/Neck/Chest: normocephalic, head atraumatic and neck supple Extremities: + abnormal strength (generalized weakness) and + muscle atrophy; no cyanosis, no clubbing and no petechiae Skin: no rashes, warm and dry Neurologic: CN's II-XI intact bilaterally and + confused; no focal motor deficits Speech / Cognition: + abnormal speech Motor/Sensory: + tremor Psychiatric: Orientation: + not alert, + not oriented to person, + not oriented to place and + not oriented to time Lymphatic: no cervical or axillary lymphadenopathy Results & Data Results & Data ([facility]) Vital Signs (Past 12 Hours) Vital Signs Temp Pulse Resp BP Pulse Ox 11/13/20 15:24 36.6 C 61 18 107/56 L 95 Medications Administered Current Inpatient Medications Amiodarone HCl (Amiodarone 200 Mg Tab) 200 mg PO DAILY@1999 [facility] Stop: 12/04/20 21:14 Last Admin: 11/13/20 20:56 Dose: 200 mg Documented by: Carbidopa/Levodopa (Carbidopa/Levodopa 25-250 1 Ea Tab) 1 tab PO TID PRN PRN Reason: Parkinson's Disease Stop: 12/04/20 21:31 Carbidopa/Levodopa (Carbidopa/Levodopa 50/200mg Ext Rel Tab) 1 tab PO BID [facility] Stop: 12/04/20 21:14 Last Admin: 11/13/20 21:02 Dose: 1 tab Documented by: Carbidopa/Levodopa (Carbidopa/Levodopa 25/100mg Tab) 3 tab PO QID [facility] Stop: 12/04/20 21:14 Last Admin: 11/13/20 21:03 Dose: 3 tab Documented by: Clonazepam (Clonazepam 0.5 Mg Tab) 0.5 mg PO HS [facility] Stop: 12/04/20 21:14 Last Admin: 11/13/20 20:57 Dose: 0.5 mg Documented by: Collagenase (Collagenase Oint 30 Gm Tube) 1 appln TOP DAILY [facility] Stop: 12/05/20 08:59 Last Admin: 11/13/20 09:29 Dose: 1 appln Documented by: Donepezil HCl (Donepezil Hcl 10 Mg Tab) 10 mg PO HS [facility] Stop: 12/04/20 21:14 Last Admin: 11/13/20 20:59 Dose: 10 mg Documented by: Ergocalciferol (Ergocalciferol 50,000 Units 1250 Mcg Cap) 50,000 units PO Tu@0900 [facility] Stop: 12/06/20 08:59 Last Admin: 11/13/20 09:28 Dose: 50,000 units Documented by: Escitalopram Oxalate (Escitalopram Oxalate 20 Mg Tab) 20 mg PO DAILY@2000 [facility] Stop: 12/04/20 21:14 Last Admin: 11/13/20 20:59 Dose: 20 mg Documented by: Famotidine (Famotidine 40 Mg Tablet) 40 mg PO QAM [facility] Stop: 12/05/20 08:59 Last Admin: 11/13/20 09:29 Dose: 40 mg Documented by: Potassium Chloride/Dextrose/Sod Cl (D5w And 1/2nss + 20meq Kcl) 20 meq in 1,000 mls @ 75 mls/hr IV .[id number] [facility] Stop: 12/10/20 19:59 Last Admin: 11/13/20 13:10 Dose: 75 mls/hr Documented by: Lactobacillus Acidoph/Casei/Rhamnos (Advanced Probiotic 1250 Mg Capsule) 2 cap PO DAILY [facility] Stop: 12/06/20 08:59 Last Admin: 11/13/20 09:29 Dose: 2 cap Documented by: Lorazepam (Lorazepam 0.5 Mg Tab) 0.5 mg PO Q8H PRN PRN Reason: anxiety Stop: 12/05/20 17:59 Last Admin: 11/11/20 00:01 Dose: 0.5 mg Documented by: Memantine (Memantine Hcl 10 Mg Tab) 10 mg PO BID [facility] Stop: 12/04/20 21:14 Last Admin: 11/13/20 21:01 Dose: 10 mg Documented by: Miconazole Nitrate (Miconazole Nitrate Powder 43 Gm) 1 appln EXT PRN PRN PRN Reason: Affected Skin Folds Stop: 12/04/20 21:17 Last Admin: 11/04/20 23:13 Dose: 1 appln Documented by: Morphine Sulfate (Morphine Sulfate 2 Mg/Ml Carp) 1 mg IV Q3H PRN PRN Reason: Pain or discomfort Stop: 11/25/20 13:42 Last Admin: 11/11/20 14:10 Dose: 1 mg Documented by: Multi-Ingredient Cream (Artificial Tears Op Oint 3.5 Gm Tube) 1 appln OPB DAILY PRN PRN Reason: Dry Eye(S) Stop: 12/04/20 21:14 Polyethylene Glycol (Polyethylene (Miralax) 17 Gm Pack) 17 gm PO DAILY PRN PRN Reason: Constipation Stop: 12/04/20 21:14 PG Care Time/CCT Total # of Minutes Spent Total Time Spent with Patient: Total time spent is greater than 50% in coordination of care (as documented) at patient's floor/unit and/or counseling patient: Coding Level of Care Code 06702 Subseq Hosp Care Lvl 2 Diagnoses Embolic stroke I63.40 Precerebral and cerebral artery: unspecified cerebral artery Metabolic encephalopathy G93.41 Rhabdomyolysis M62.82 Rhabdomyolysis type: non-traumatic Elevated troponin level R77.8 Frequent falls R29.6 Failure to thrive Parkinsons disease G20 CKD (chronic kidney disease), stage III N18.3 Hypertension I10 Hyperlipidemia E78.5 Atrial fibrillation I48.0 Atrial fibrillation type: paroxysmal Chronic lower back pain M54.5; G89.29 Anemia D64.9 UTI (urinary tract infection) N39.0 DVT prophylaxis Z29.9 (1) Embolic stroke Precerebral and cerebral artery: unspecified cerebral artery Qualified Code(s): I63.40 - Cerebral infarction due to embolism of unspecified cerebral artery (2) Rhabdomyolysis Rhabdomyolysis type: non-traumatic Qualified Code(s): M62.82 - Rhabdomyolysis (3) Atrial fibrillation Atrial fibrillation type: paroxysmal Qualified Code(s): I48.0 - Paroxysmal atrial fibrillation
[2020-11-14] MEDS: FAMOTIDINE 40 MG TABLET PO SCH (08:36)
[2020-11-14] MEDS: CARBIDOPA/LEVODOPA 50/200MG EXT REL TAB PO SCH ×2 (08:36→21:24)
[2020-11-14] MEDS: COLLAGENASE OINT 30 GM TUBE TOP SCH (08:37)
[2020-11-14] MEDS: CARBIDOPA/LEVODOPA 25/100MG TAB PO SCH ×4 (08:37→21:24)
--- NOTE | 2020-11-14 16:10 | Hospitalist Progress Note ---
Date of Service November 14, 2020 Assessment & Plan (1) Embolic stroke: MRI brain with b/l punctate strokes c/w embolic etiology earlier this stay. Due to copious # of falls over the last few months her xarelto was stopped as an outpatient about 1 month ago per daughter. Thus, strokes are likely due to thrombus formation in the setting of a.fib with subsequent embolization from the heart. Heparin drip started earlier this week and multiple discussions held with pt's daughter by Dr. Beckett and Dr Dsouza to go over risks/benefits of resuming anticoagulation. Family has elected to NOT pursue PO anticoagulation at this time. heparin stopped. xarelto or other oral agent not resumed. family aware she remains at very high risk of recurrent strokes will go home on hospice, will minimize medication list change to [facility], home tomorrow (2) Metabolic encephalopathy: ongoing severe worsening her failure to thrive, met encephalopathy, and severe anorexia are preventing her from making any sizable progress palliative care involved in her care family agrees with home hospice (3) Rhabdomyolysis: 2nd to falls. Resolved earlier this stay. (4) Elevated troponin level: Either 2nd to rhabdomyolysis or from myocardial demand ischemia in setting of falls, UTI, etc. (5) Frequent falls: UTI in setting of advanced PD and dementia along with newly-discovered b/l embolic strokes likely all contributed to numerous falls prior to admission. Remains at high risk of falls in future. (6) Failure to thrive: ongoing severe has worsened while hospitalized - laying in bed all day, severe confusion, severe anorexia, etc. suspect that FTT is due to advanced PD and dementia with superimposed strokes and UTI of note - COVID NEGATIVE x [address] Dsouza from palliative care involved comfort measures (7) Parkinsons disease: Advanced. End stage. follows with Dr Alan. Cont carbidopa/levodopa at home doses if she will take them (8) CKD (chronic kidney disease), stage III: Baseline CrCL <60. Cr stable (9) Hypertension: BPs normal or low-normal with ongoing dehydration. hold lasix. (10) Hyperlipidemia: not on meds for such (11) Atrial fibrillation: remains in NSR with daily amiodarone use. not on anticoagulation - due to frequent falls - see discussion above in "embolic stroke" TSH wnl. (12) Chronic lower back pain: checked pelvis and hip x-rays to r/o fracture -- negative for such. Ct abd/pelvis with healing T11/T12 fractures -- suspect subacute or chronic. (13) Anemia: iron studies, b12, folate - acceptable suspect anemia of chronic disease stool heme negative (14) UTI (urinary tract infection): completed 7-day course of IV/PO abx (15) DVT prophylaxis: scds plan for home hospice on , spoke with daughter today DNR Admission and Anticipated Discharge Date Admission Date: November 04, 2020 Subjective patient resting comfortably, no new issues Review of Systems Review of Systems: Unobtainable due to cognitive status and Unobtainable due to reduced consciousness Physical Exam Constitutional: well developed, + thin, + altered mental status, comfortable and + lethargic; no acute distress Neck: trachea midline, no thyromegaly Respiratory: normal respiratory effort, lungs clear to auscultation Cardiovascular: RRR, no murmur, no edema Gastrointestinal (Abdomen): normal bowel sounds, soft, nontender, no hepatosplenomegaly Musculoskeletal: Head/Neck/Chest: normocephalic, head atraumatic and neck supple Extremities: + abnormal strength (generalized weakness) and + muscle atrophy; no cyanosis, no clubbing and no petechiae Skin: no rashes, warm and dry Neurologic: CN's II-XI intact bilaterally and + confused; no focal motor deficits Speech / Cognition: + abnormal speech Motor/Sensory: + tremor Psychiatric: Orientation: + not alert, + not oriented to person, + not oriented to place and + not oriented to time Lymphatic: no cervical or axillary lymphadenopathy PG Care Time/CCT Total # of Minutes Spent Total Time Spent with Patient: Total time spent is greater than 50% in coordination of care (as documented) at patient's floor/unit and/or counseling patient: Coding Level of Care Code 58104 Subseq Hosp Care Lvl 1 Diagnoses Embolic stroke I63.40 Precerebral and cerebral artery: unspecified cerebral artery Metabolic encephalopathy G93.41 Rhabdomyolysis M62.82 Rhabdomyolysis type: non-traumatic Elevated troponin level R77.8 Frequent falls R29.6 Failure to thrive Parkinsons disease G20 CKD (chronic kidney disease), stage III N18.3 Hypertension I10 Hyperlipidemia E78.5 Atrial fibrillation I48.0 Atrial fibrillation type: paroxysmal Chronic lower back pain M54.5; G89.29 Anemia D64.9 UTI (urinary tract infection) N39.0 DVT prophylaxis Z29.9 (1) Atrial fibrillation Atrial fibrillation type: paroxysmal Qualified Code(s): I48.0 - Paroxysmal atrial fibrillation (2) Rhabdomyolysis Rhabdomyolysis type: non-traumatic Qualified Code(s): M62.82 - Rhabdomyolysis (3) Embolic stroke Precerebral and cerebral artery: unspecified cerebral artery Qualified Code(s): I63.40 - Cerebral infarction due to embolism of unspecified cerebral artery
[2020-11-14] MEDS: clonazePAM 0.5 MG TAB PO SCH (21:24)
[2020-11-15] MEDS: CARBIDOPA/LEVODOPA 50/200MG EXT REL TAB PO SCH (10:14)
[2020-11-15] MEDS: CARBIDOPA/LEVODOPA 25/100MG TAB PO SCH ×3 (10:14→16:31)
[2020-11-15] MEDS: FAMOTIDINE 40 MG TABLET PO SCH (10:14)
[2020-11-15] MEDS: COLLAGENASE OINT 30 GM TUBE TOP SCH (10:14)
--- NOTE | 2020-11-15 10:58 | Discharge Summary ---
Date of Service November 15, 2020 Admission HPI Per Admitting Provider This is an 85-year-old female with a history of Parkinson's disease. She presented to [facility] as her family has noted a decline in her function over the past 3 to 4 days. Patient has an underlying history of dementia and Parkinson's disease and therefore the history she was able to provide was limited. At the time of my exam I did asked the patient if she was in any pain which she said she was not. He did not provide any other additional information. I did discuss her situation with her daughter with whom she lives. Her daughter was able to provide a great deal of detailed information. She notes that her mother generally ambulates with a walker and assist of 1 person and has noted to have frequent falls at home. Her daughter notes that typically when her mother falls they are able to lower her to the ground in a controlled fashion preventing her from sustaining any injuries. She notes that the falls that her mother has been suffering have been getting more frequently particularly last 3 to 4 days. He notes that her mother is able to consume regular food however over the past 3 to 4 days she has not been eating or drinking very much. She notes that she frequently checks her mother's temperature and there has been no noted fevers over the past several days. Has not observed any shakes or chills. But having a poor appetite her mother has not had any nausea vomiting. She notes that her bowels have been working in a normal fashion for her. Best of her knowledge there is been no noted weight loss. In the emergency department patient had shoulder x-rays which were negative for fracture. CT scan of the head showed no acute intracranial process. A chest x- ray was negative for pneumonia or CHF and a CT scan of the abdomen was negative for acute abdominal pathology except for noted diverticulosis. CBC revealed patient's white blood cell count and platelet count were normal. Hemoglobin and hematocrit were 10.8 and 34.1 which was near her baseline. Electrolytes revealed sodium and potassium were normal her BUN and creatinine were 53 and 1.2. This creatinine was slightly above her baseline of 0.9. Total CK level was noted to be 3989. Also noted to have an elevated troponin at 0.052. EKG did not demonstrate any acute ischemic changes. A Covid test was performed which was noted to be negative. At the time of my interview the patient was resting in bed comfortable in no acute distress. Again she did not offer any specific complaints. I did discuss the case with the nurse at the bedside and no immediate concerns were identified. Principal Diagnosis Embolic strokes, failure to thrive Discharge Exam Constitutional well developed, + thin, + altered mental status, comfortable and + lethargic; no acute distress Neck trachea midline, no thyromegaly Respiratory normal respiratory effort, lungs clear to auscultation Cardiovascular RRR, no murmur, no edema Gastrointestinal (Abdomen) normal bowel sounds, soft, nontender, no hepatosplenomegaly Musculoskeletal Head/Neck/Chest: normocephalic, head atraumatic and neck supple Extremities: + abnormal strength (generalized weakness) and + muscle atrophy; no cyanosis, no clubbing and no petechiae Skin no rashes, warm and dry Neurologic CN's II-XI intact bilaterally and + confused; no focal motor deficits Speech / Cognition: + abnormal speech Motor/Sensory: + tremor Psychiatric Orientation: + not alert, + not oriented to person, + not oriented to place and + not oriented to time Lymphatic no cervical or axillary lymphadenopathy Discharge Data Allergies Allergy/AdvReac Type Severity Reaction Status Date / Time succinylcholine Allergy Severe PSEUDO-CHOLINESTERASE Verified 11/04/20 15:44 DEFICIENCY Consultations 11/04/20 16:16 ED Decision to Admit Stat 11/04/20 21:15 Consult Case Management - Discharge Planning Routine 11/07/20 22:06 Consult Neurology Routine 11/08/20 10:22 Consult Palliative Care Routine Ordered Studies 11/04/20 15:04 CT abd pelvis IV con only Stat CT head/brain wo con Stat 11/07/20 10:55 MR brain wo con Routine Hospital Course (1) Embolic stroke: MRI brain with b/l punctate strokes c/w embolic etiology earlier this stay. Due to copious # of falls over the last few months her xarelto was stopped as an outpatient about 1 month ago per daughter. Thus, strokes are likely due to thrombus formation in the setting of a.fib with subsequent embolization from the heart. Heparin drip started earlier this week and multiple discussions held with pt's daughter by Dr. Beckett and Dr Dsouza to go over risks/benefits of resuming anticoagulation. Family has elected to NOT pursue PO anticoagulation at this time. heparin stopped. xarelto or other oral agent not resumed. family aware she remains at very high risk of recurrent strokes will go home on hospice, will minimize medication list change to [employer], home today (2) Metabolic encephalopathy: ongoing severe worsening her failure to thrive, met encephalopathy, and severe anorexia are preventing her from making any sizable progress palliative care involved in her care family agrees with home hospice (3) Rhabdomyolysis: 2nd to falls. Resolved earlier this stay. (4) Elevated troponin level: Either 2nd to rhabdomyolysis or from myocardial demand ischemia in setting of falls, UTI, etc. (5) Frequent falls: UTI in setting of advanced PD and dementia along with newly-discovered b/l embolic strokes likely all contributed to numerous falls prior to admission. Remains at high risk of falls in future. (6) Failure to thrive: ongoing severe has worsened while hospitalized - laying in bed all day, severe confusion, severe anorexia, etc. suspect that FTT is due to advanced PD and dementia with superimposed strokes and UTI of note - COVID NEGATIVE x [address] Dsouza from palliative care involved comfort measures (7) Parkinsons disease: Advanced. End stage. follows with Dr Alan. Cont carbidopa/levodopa at home doses if she will take them (8) CKD (chronic kidney disease), stage III: Baseline CrCL <60. Cr stable (9) Hypertension: BPs normal or low-normal with ongoing dehydration. hold lasix. (10) Hyperlipidemia: not on meds for such (11) Atrial fibrillation: remains in NSR with daily amiodarone use. not on anticoagulation - due to frequent falls - see discussion above in "embolic stroke" TSH wnl. (12) Chronic lower back pain: checked pelvis and hip x-rays to r/o fracture -- negative for such. Ct abd/pelvis with healing T11/T12 fractures -- suspect subacute or chronic. (13) Anemia: iron studies, b12, folate - acceptable suspect anemia of chronic disease stool heme negative (14) UTI (urinary tract infection): completed 7-day course of IV/PO abx (15) DVT prophylaxis: scds plan for home hospice on , spoke with daughter today DNR Total Time Total Time Spent Total Time Spent (In Minutes): 31 Total Time Includes: Examination of the Patient, Discharge Planning, Medication Reconciliation and Communication With Other Providers Discharge Plan Discharge Items Patient Disposition: Hospice - Home Reason For Visit: FTT,UTI,RHABDO Discharge Diagnosis: Embolic stroke Failure to thrive Parkinson's disease Condition on Discharge: Fair Goals: comfort care at home Activity: As commented below Activity Comment: bedrest Non-emergency contact: Primary Care Provider Call non-emergency contact if: you have any medication questions and your pain is not controlled Follow-up/Referrals: Edwige Mason, [Primary Care Provider] - Diet: Nothing by Mouth Addtl Attending Provider Instructions: Medications: all medications stopped except those for comfort - MORPHINE: give 0.25mL in mouth for any signs of pain or respiratory distress, absorbed quickly in mouth for relief - ATROPINE: use drops for any secretions in the back of the throat please contact hospice agency for any questions on medications would not try to force patient to eat, if she actually asks for something would try applesauce, pudding, with understanding that she might aspirate Pending Studies at Discharge: No Stand-Alone Forms: [employer] Medications and DC Order Prescriptions: New atropine 1 % Drops 4 drp sublingual Q1H PRN (Reason: secretions) Qty: 5 RF: 0 morphine concentrate 100 mg/5 mL (20 mg/mL) solution 5 mg PO Q6H PRN (Reason: pain) Qty: 30 RF: 0 Continued clonazepam 0.5 mg tablet,disintegrating 0.5 mg PO HS 30 Days Qty: 30 RF: 1 (DME) latex gloves [Latex Gloves, Medium] Misc See Rx Instructions .ROUTE .MEDSUPPLY Qty: 24 RF: 11 (DME) wrist splint See Rx Instructions .Route .MEDSUPPLY Qty: 2 RF: 0 Artificial Tears (kathy/min) 83-15 % Ointment 1 applic OPB UD PRN (Reason: Dry Eye(S)) RF: 0 lorazepam 0.5 mg tablet 0.5 mg PO DAILY@1800 PRN (Reason: anxiety) RF: 0 Discontinued memantine 10 mg tablet 10 mg PO BID Qty: 180 RF: 0 donepezil 10 mg tablet 10 mg PO HS 90 Days Qty: 90 RF: 0 carbidopa-levodopa 25-100 mg tablet 3 tab PO QID Qty: 1080 RF: 1 carbidopa-levodopa 50-200 mg tablet extended release 1 tab PO BID 90 Days Qty: 180 RF: 1 carbidopa-levodopa 25-250 mg tablet,disintegrating 1 tab PO TID PRN (Reason: Parkinson's Disease) 90 Days Qty: 270 RF: 1 misc Misc 1 ea .Route ONCE Qty: 1 RF: 0 trazodone 50 mg tablet 25 mg PO HS Qty: 15 RF: 0 Santyl 250 unit/gram ointment 1 applic topical DAILY Qty: 30 RF: 0 polyethylene glycol 3350 [Miralax] 17 gram/dose Powder 17 g PO DAILY PRN (Reason: Constipation) RF: 0 famotidine 40 mg tablet 40 mg PO QAM RF: 0 cholecalciferol (vitamin D3) 1,250 mcg (50,000 unit) capsule 1,250 mcg PO TU RF: 0 furosemide 40 mg tablet 20 mg PO QAM RF: 0 aspirin 325 mg tablet 325 mg PO DAILY@1800 RF: 0 amiodarone 200 mg tablet 200 mg PO DAILY@2000 RF: 0 alendronate 70 mg tablet 70 mg PO SA RF: 0 escitalopram oxalate 20 mg tablet 20 mg PO DAILY@2000 RF: 0 potassium chloride 20 mEq tablet extended release 20 meq PO DAILY@1400 RF: 0 Discharge Orders: Discharge Order (Routine); Ordered 11/15/20 Ordered By: Wali Hugo Admission Data Admit Date/Time: 11/04/20 18:27 Attending Provider: Wali Hugo Admit Provider: Niraj Lew Primary Care Provider: Edwige Mason Other Providers: Stef Norris ; Niraj Lew ; Modesto Ortiz ; Vernell Dsouza Coding Level of Care Code D/C Day Management >30 mins Diagnoses Embolic stroke I63.40 Precerebral and cerebral artery: unspecified cerebral artery Metabolic encephalopathy G93.41 Rhabdomyolysis M62.82 Rhabdomyolysis type: non-traumatic Elevated troponin level R77.8 Frequent falls R29.6 Failure to thrive Parkinsons disease G20 CKD (chronic kidney disease), stage III N18.3 Hypertension I10 Hyperlipidemia E78.5 Atrial fibrillation I48.0 Atrial fibrillation type: paroxysmal Chronic lower back pain M54.5; G89.29 Anemia D64.9 UTI (urinary tract infection) N39.0 DVT prophylaxis Z29.9
== END 2020-11-15 17:34 | disposition hospice, home (50) | DRG 64 ==
LOC: ED 14:08 → 2N 18:27 → SUATTDRO 18:27 → 2N 20:52 → 3N 11-10 02:02